=== PATIENT | male | born 1945 | race American Indian/Alaskan Native ===

== ENCOUNTER 2017-07-25 06:06 | Inpatient (IN) | payer MEDICARE ==
[2017-07-25] MEDS ORDERED: ASPIRIN PO ONE (07:16)
[2017-07-25] MEDS ORDERED: HEPARIN 10,000 UNITS/10 ML IV ONE (07:26)
[2017-07-25 07:47] LABS: Basophils # (Auto) 0.1 K/mm3 (0.0-0.1); Basophils % (Auto) 1.6 % (0.0-1.8); Eosinophils # (Auto) 0.4 K/mm3 (0.0-0.4); Eosinophils % (Auto) 5.3 % (0.0-4.3); Hematocrit 30.4 % (35.5-45.6); Hemoglobin 9.8 gm/dl (11.8-15.2); Lymphocytes # (Auto) 1.4 K/mm3 (1.2-5.4); Lymphocytes % (Auto) 21.1 % (13.4-35.0); Mean Corpuscular HGB Conc 32 % (32-34); Monocytes % (Auto) 15.1 % (0.0-7.3); Red Blood Count 4.46 M/mm3 (3.65-5.03)
[2017-07-25 07:51] LABS: Mean Corpuscular Hemoglobin 22 pg (28-32); Mean Corpuscular Volume 68 fl (84-94); Platelet Count 160 K/mm3 (140-440); Red Cell Distribution Width 23.5 % (13.2-15.2)
[2017-07-25 07:58] LABS: INR 1.35 (0.87-1.13)
[2017-07-25 07:59] LABS: Partial Thromboplastin Time 32.7 Sec. (24.2-36.6)
[2017-07-25 08:08] LABS: BUN/Creatinine Ratio 26; Blood Urea Nitrogen 46 mg/dL (9-20); Calcium 8.8 mg/dL (8.4-10.2); Hemolysis Index 41
[2017-07-25] MEDS: LOPRESSOR IV PRN ×3 (08:11→09:28)
--- NOTE | 2017-07-25 08:23 | XRay Report ---
AP CHEST: HISTORY: chest pain No comparison. Moderate cardiomegaly, mild pulmonary venous congestion and trace bilateral pleural effusions are detected. No evidence for pneumonia or pneumothorax. The bony structures are grossly intact. IMPRESSION: Mild CHF.
[2017-07-25] MEDS ORDERED: HEPARIN/ 0.45% NACL-25,000 UNIT/500 ML 25,000 UNIT/500 ML BAG IV SCH ×2 (09:00→12:00)
--- NOTE | 2017-07-25 09:21 | Emergency Department Report ---
ED Chest Pain HPI - General Chief Complaint: Chest Pain Stated Complaint: CHEST PAIN Time Seen by Provider: 07/25/17 07:20 Source: patient Mode of arrival: Ambulatory Limitations: No Limitations - History of Present Illness Initial Comments: Patient states that earlier today, he developed palpitations, chest tightness. He was unable to slow his heart rate down. Symptoms are consistent with the patient's A. fib. So, he called EMS who brought him to the ER for evaluation. Patient is unsure what medications he takes. He normally gets care at [facility]. He believes that he is on metoprolol and eliquis for his A. fib. - Related Data Home Medications Medication Instructions Recorded Confirmed Last Taken ARIPiprazole 30 mg PO DAILY 07/25/17 07/25/17 Unknown Aspirin BABY CHEW TAB 81 mg PO DAILY 07/25/17 07/25/17 Unknown AtorvaSTATin 20 mg PO DAILY 07/25/17 07/25/17 Unknown Divalproex ER 500 mg PO DAILY 07/25/17 07/25/17 Unknown Furosemide 40 mg PO DAILY 07/25/17 07/25/17 Unknown Lisinopril 20 mg PO DAILY 07/25/17 07/25/17 Unknown Metoprolol 100 mg PO DAILY 07/25/17 07/25/17 Unknown Tamsulosin 0.4 mg PO DAILY 07/25/17 07/25/17 Unknown Xarelto 20 mg PO DAILY 07/25/17 07/25/17 Unknown traZODone 150 mg PO BID PRN 07/25/17 07/25/17 Unknown Allergies Allergy/AdvReac Type Severity Reaction Status Date / Time No Known Allergies Allergy Unverified 07/25/17 07:16 Heart Score - HEART Score History: Slightly suspicious EKG: Non-specific Age: > 65 Risk factors: 1-2 risk factors Troponin: < normal limit HEART Score: 4 ED Review of Systems ROS: Stated complaint: CHEST PAIN Other details as noted in HPI Constitutional: denies: chills, fever Eyes: denies: eye pain, eye discharge, vision change ENT: denies: ear pain, throat pain Respiratory: denies: cough, shortness of breath, wheezing Cardiovascular: chest pain, palpitations Endocrine: no symptoms reported Gastrointestinal: denies: abdominal pain, nausea, diarrhea Genitourinary: denies: urgency, dysuria Musculoskeletal: denies: back pain, joint swelling, arthralgia Skin: denies: rash, lesions Neurological: denies: headache, weakness, paresthesias Psychiatric: denies: anxiety, depression Hematological/Lymphatic: denies: easy bleeding, easy bruising ED Past Medical Hx - Past Medical History Hx Hypertension: Yes Hx Heart Attack/AMI: Yes Hx Psychiatric Treatment: Yes (Bipolar,) Additional medical history: Afib, - Surgical History Additional Surgical History: Cardiac stents, - Social History Smoking Status: Never Smoker Substance Use Type: None - Medications Home Medications: Home Medications Medication Instructions Recorded Confirmed Last Taken Type ARIPiprazole 30 mg PO DAILY 07/25/17 07/25/17 Unknown History Aspirin BABY CHEW TAB 81 mg PO DAILY 07/25/17 07/25/17 Unknown History AtorvaSTATin 20 mg PO DAILY 07/25/17 07/25/17 Unknown History Divalproex ER 500 mg PO DAILY 07/25/17 07/25/17 Unknown History Furosemide 40 mg PO DAILY 07/25/17 07/25/17 Unknown History Lisinopril 20 mg PO DAILY 07/25/17 07/25/17 Unknown History Metoprolol 100 mg PO DAILY 07/25/17 07/25/17 Unknown History Tamsulosin 0.4 mg PO DAILY 07/25/17 07/25/17 Unknown History Xarelto 20 mg PO DAILY 07/25/17 07/25/17 Unknown History traZODone 150 mg PO BID PRN 07/25/17 07/25/17 Unknown History ED Physical Exam - General Limitations: No Limitations General appearance: alert, in no apparent distress - Head Head exam: Present: atraumatic, normocephalic - Eye Eye exam: Present: normal appearance - ENT ENT exam: Present: mucous membranes moist - Neck Neck exam: Present: normal inspection - Respiratory Respiratory exam: Present: normal lung sounds bilaterally. Absent: respiratory distress - Cardiovascular Cardiovascular Exam: Present: tachycardia, irregular rhythm. Absent: systolic murmur, diastolic murmur, rubs, gallop - GI/Abdominal GI/Abdominal exam: Present: soft, normal bowel sounds. Absent: tenderness - Rectal Rectal exam: Present: deferred - Extremities Exam Extremities exam: Present: normal inspection, pedal edema - Back Exam Back exam: Present: normal inspection - Neurological Exam Neurological exam: Present: alert, oriented X3 - Psychiatric Psychiatric exam: Present: normal affect, normal mood - Skin Skin exam: Present: warm, dry, intact, normal color. Absent: rash ED Course Vital Signs 07/25/17 07/25/17 07/25/17 07:24 07:57 08:09 Temperature 98 F Pulse Rate 127 H 135 H Respiratory 20 24 Rate Blood Pressure 119/83 Blood Pressure 116/76 [Left] O2 Sat by Pulse 98 97 100 Oximetry 07/25/17 07/25/17 07/25/17 08:11 08:50 09:28 Temperature Pulse Rate 135 H 122 H 120 H Respiratory Rate Blood Pressure 116/76 138/73 140/96 Blood Pressure [Left] O2 Sat by Pulse Oximetry ED Medical Decision Making - Lab Data Result diagrams: 07/25/17 10:45 07/25/17 07:32 - EKG Data -: EKG Interpreted by Me Rate: tachycardia - EKG Data Interpretation: other (atrial fibrillation with RVR) - Radiology Data Radiology results: image reviewed - Medical Decision Making 69-year-old male with past medical history of hypertension, A. fib on throughout so that presents to the ER with palpitations. Heart rate elevated at 140, but normotensive. Patient mentating appropriate. He is unclear what medicines he takes at home. He was given 3 doses of 5 mg IV metoprolol. This controlled his rate. Lab work with creatinine of 1.8. EKG confirms A. fib with RVR. There is placed on a heparin drip. I attempted to call his house to confirm his medication list. The patient will be admitted for further management. Critical care attestation.: If time is entered above; I have spent that time in minutes in the direct care of this critically ill patient, excluding procedure time. ED Disposition Clinical Impression: Atrial fibrillation with RVR Disposition: OP ADMIT IP TO THIS HOSP Is pt being admited?: Yes Does the pt Need Aspirin: No Condition: Stable
[2017-07-25] MEDS ORDERED: NITROSTAT SL PRN (10:16)
[2017-07-25] MEDS ORDERED: SODIUM CHLORIDE FLUSH SYRINGE 10 ML IV PRN (10:16)
[2017-07-25] MEDS ORDERED: TYLENOL PO PRN (10:16)
[2017-07-25] MEDS ORDERED: ZOFRAN IV PRN (10:16)
[2017-07-25] MEDS ORDERED: MORPHINE IV PRN (10:16)
--- NOTE | 2017-07-25 10:29 | History and Physical Report ---
History of Present Illness Date of examination: 07/25/17 Date of admission: 07/25/17 Chief complaint: Chest pain with shortness of breath History of present illness: Patient's an 81-year-old male who presents to the ER with complaints of chest pain that woke him up at 2 AM this morning with his shortness of breath on arrival to the ER his oxygen saturation on room air was 76%. This improved to 97% with 2 L of oxygen. Patient is a poor historian and unable to give me any detailed information about his past medical history except a that he has heart failure and also follows with Dr. FLORESITA Farrar heart and also normally gets CAD [facility]. Patient is unable to give me further information about his condition except that he was short of breath throughout the conversation the patient falls asleep. On admission he had heart rate in the 140s which is improved to 90- low 100s. He does not specifically inform me of her chest discomfort. But this is documented in the ER as triage note. Initial troponins are negative. Creatinine is 1.8 again sign do not have a baseline off of this patient. Initial EKG reviewed shows atrial fibrillation with RVR. Patient is unable to give me any further information. Review of his records indicate history of heart failure and also bipolar disorder. Past History Past Medical History: CAD, COPD, hypertension (I gave my) Past Surgical History: PTCA, Other ( The shoulder surgery) Social history: no significant social history, other (patient unable to provide information) Family history: other (patient unable to provide information) Medications and Allergies Allergies Allergy/AdvReac Type Severity Reaction Status Date / Time No Known Allergies Allergy Unverified 07/25/17 07:16 Home Medications Medication Instructions Recorded Confirmed Last Taken Type Unobtainable 07/25/17 07/25/17 Unknown History Active Meds: Active Medications Acetaminophen (Tylenol) 650 mg PO Q4H PRN PRN Reason: Pain MILD(1-3)/Fever >100.5/IRBY Albuterol/Ipratropium (Duoneb *Not For Prn Use*) 1 ampul IH Q6HRT [facility] Aspirin (Baby Aspirin) 81 mg PO QDAY [facility] Carvedilol (Coreg) 6.25 mg PO BID [facility] Famotidine (Pepcid) 10 mg PO BID [facility] Furosemide (Lasix) 40 mg IV BID@0600,1800 [facility] Heparin Sodium/Sodium Chloride (Heparin/ 0.45% Nacl-25,000 Unit/500 Ml) 25,000 unit in 500 mls @ 20 mls/hr IV TITRATE [facility]; Protocol Heparin Sodium/Sodium Chloride (Heparin/ 0.45% Nacl-25,000 Unit/500 Ml) 25,000 unit in 500 mls @ 31.978 mls/hr IV TITRATE [facility]; Protocol Lisinopril (Zestril) 20 mg PO QDAY [facility] Morphine Sulfate (Morphine) 2 mg IV Q5MIN PRN PRN Reason: Chest Pain Nitroglycerin (Nitrostat) 0.4 mg SL .Q5MIN PRN PRN Reason: Chest Pain Ondansetron HCl (Zofran) 4 mg IV Q8H PRN PRN Reason: Nausea And Vomiting Sodium Chloride (Sodium Chloride Flush Syringe 10 Ml) 10 ml IV BID [facility] Sodium Chloride (Sodium Chloride Flush Syringe 10 Ml) 10 ml IV PRN PRN PRN Reason: LINE FLUSH Review of Systems All systems: negative Cardiovascular: chest pain Respiratory: shortness of breath Exam - Physical Exam Narrative exam: VITAL SIGNS: Reviewed. GENERAL: The patient appeared well nourished and normally developed. Vital signs as documented. HEAD: No signs of head trauma. EYES: Pupils are equal. Extraocular motions intact. EARS: Hearing grossly intact. MOUTH: Oropharynx is normal. NECK: No adenopathy, no JVD. CHEST: Chest with clear breath sounds bilaterally. No wheezes, rales, or rhonchi. CARDIAC: Irregularly irregular rate and rhythm. S1 and S2, without murmurs, gallops, or rubs. VASCULAR: None Pitting bilateral lower extremity Edema. Peripheral pulses normal and equal in all extremities. ABDOMEN: Soft, without detectable tenderness. No sign of distention. No rebound or guarding, and no masses palpated. Bowel Sounds normal. MUSCULOSKELETAL: Good range of motion of all major joints. Extremities without clubbing, cyanosis. None Pitting bilateral lower extremity Edema NEUROLOGIC EXAM: lethargic but arousable No focal sensory or strength deficits. Speech normal. Follows commands. PSYCHIATRIC: Mood normal. SKIN: Chronic bilateral venous changes - Constitutional Vitals: Temp Pulse Resp BP Pulse Ox 98 F 120 H 24 140/96 100 07/25/17 07:24 07/25/17 09:28 07/25/17 08:09 07/25/17 09:28 07/25/17 08:09 Results - Labs CBC & Chem 7: 07/25/17 07:32 07/25/17 07:32 Labs: Laboratory Last Values WBC 6.7 K/mm3 (4.5-11.0) 07/25/17 07:32 RBC 4.46 M/mm3 (3.65-5.03) 07/25/17 07:32 Hgb 9.8 gm/dl (11.8-15.2) L 07/25/17 07:32 Hct 30.4 % (35.5-45.6) L 07/25/17 07:32 MCV 68 fl (84-94) L 07/25/17 07:32 MCH 22 pg (28-32) L 07/25/17 07:32 MCHC 32 % (32-34) 07/25/17 07:32 RDW 23.5 % (13.2-15.2) H 07/25/17 07:32 Plt Count 160 K/mm3 (140-440) 07/25/17 07:32 Lymph % (Auto) 21.1 % (13.4-35.0) 07/25/17 07:32 [place] % (Auto) 15.1 % (0.0-7.3) H 07/25/17 07:32 Eos % (Auto) 5.3 % (0.0-4.3) H 07/25/17 07:32 Baso % (Auto) 1.6 % (0.0-1.8) 07/25/17 07:32 Lymph # 1.4 K/mm3 (1.2-5.4) 07/25/17 07:32 [place] # 1.0 K/mm3 (0.0-0.8) H 07/25/17 07:32 Eos # 0.4 K/mm3 (0.0-0.4) 07/25/17 07:32 Baso # 0.1 K/mm3 (0.0-0.1) 07/25/17 07:32 Seg Neutrophils % 56.9 % (40.0-70.0) 07/25/17 07:32 Seg Neutrophils # 3.8 K/mm3 (1.8-7.7) 07/25/17 07:32 PT 17.4 Sec. (12.2-14.9) H 07/25/17 07:32 INR 1.35 (0.87-1.13) H 07/25/17 07:32 APTT 32.7 Sec. (24.2-36.6) 07/25/17 07:32 Sodium 139 mmol/L (137-145) 07/25/17 07:32 Potassium 4.3 mmol/L (3.6-5.0) 07/25/17 07:32 Chloride 98.6 mmol/L (98-107) 07/25/17 07:32 Carbon Dioxide 27 mmol/L (22-30) 07/25/17 07:32 Anion Gap 18 mmol/L 07/25/17 07:32 BUN 46 mg/dL (9-20) H 07/25/17 07:32 Creatinine 1.8 mg/dL (0.8-1.5) H 07/25/17 07:32 Estimated GFR 44 ml/min 07/25/17 07:32 BUN/Creatinine Ratio 26 % 07/25/17 07:32 Glucose 111 mg/dL (75-100) H 07/25/17 07:32 Calcium 8.8 mg/dL (8.4-10.2) 07/25/17 07:32 Troponin T < 0.010 ng/mL (0.00-0.029) 07/25/17 07:32 NT-Pro-B Natriuret Pep 19343 pg/mL (0-900) H 07/25/17 07:34 - Imaging and Cardiology Chest x-ray: image reviewed (pulmonary congestion) Assessment and Plan Assessment and plan: Patient's an 81-year-old male who presents to the ER with complaints of chest pain that woke him up at 2 AM this morning with his shortness of breath on arrival to the ER his oxygen saturation on room air was 76%. This improved to 97% with 2 L of oxygen. Patient is a poor historian and unable to give me any detailed information about his past medical history except a that he has heart failure and also follows with Dr. FLORESITA Farrar heart and also normally gets [facility]. Patient is unable to give me further information about his condition except that he was short of breath throughout the conversation the patient falls asleep. On admission he had heart rate in the 140s which is improved to 90- low 100s. He does not specifically inform me of her chest discomfort. But this is documented in the ER as triage note. Initial troponins are negative. Creatinine is 1.8 again sign do not have a baseline off of this patient. Initial EKG reviewed shows atrial fibrillation with RVR. Patient is unable to give me any further information. Review of his records indicate history of heart failure and also bipolar disorder. Chest pain rule out ACS Atrial fibrillation with RVR Acute respiratory failure with hypoxia Presumed acute on chronic congestive heart failure likely systolic CAD status post stents-partial vasculature Anemia Acute kidney injury likely secondary to vasomotor nephropathy-baseline unknown to me at this time Bipolar disorder Acute metabolic encephalopathy Plan Admit to telemetry. Careful attention to patient as he may need ICU if mental status and respiratory status, cardiology status do not improve Lasix 40 mg IV twice a day this may need to be adjusted in the setting of increase in renal dysfunction Hold HUSAM inhibitor unless creatinine is at its baseline Start low-dose beta bernardo [place] Heparin drip Consult cardiology-[facility], [facility] patient familiar to them Obtain records from [facility] and also from the pharmacy at [facility] as provided by the patient. Medication information and clinical history. 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 The aggregate critical care time was [45] minutes. This time is in addition to time spent performing reported procedures but includes the following: [x] Data Review and interpretation [x] Patient assessment and monitoring of vital signs [x] Documentation [x] Medication orders and management Advance Directives: Yes Plan of care discussed with patient/family: Yes
[2017-07-25 11:11] LABS: Hematocrit 29.1 % (35.5-45.6); Hemoglobin 9.4 gm/dl (11.8-15.2)
[2017-07-25 11:21] LABS: INR 1.33 (0.87-1.13)
[2017-07-25 11:23] LABS: Partial Thromboplastin Time 42.6 Sec. (24.2-36.6)
[2017-07-25] MEDS: DUONEB *Not for PRN Use IH SCH ×2 (14:21→20:20)
[2017-07-25 14:40] LABS: Creatine Kinase MB 1.8 ng/mL (0.0-4.0)
--- NOTE | 2017-07-25 16:25 | Consultation ---
History of Present Illness Consult date: 07/25/17 Consult reason: atrial fibrillation History of present illness: This is a 71yr old male with multiple medical problems. He has chronic atrial fibrillation and is on Xarelto for oral anticoagulation. He has a history of DVT , chronic kidney disease, hypertension and bipolar disease. An echocardiogram done at [facility] April 2017, reports a normal left ventricular systolic function, ejection fraction 45-50%. Patient presented to this hospital with complaints of chest pain and palpitations, found to be in rapid atrial fibrillation thus this cardiac consultation. Patient denies chest pain and shortness of breath. Patient admits to compliance with his medications. Patient is lethargic and falls asleep during this assessment and is unable to provide additional information. Past History Social history: other (patient unable to provide information) Family history: other (patient unable to provide information) Medications and Allergies Allergies Allergy/AdvReac Type Severity Reaction Status Date / Time No Known Allergies Allergy Unverified 07/25/17 07:16 Home Medications Medication Instructions Recorded Confirmed Last Taken Type ARIPiprazole 30 mg PO DAILY 07/25/17 07/25/17 Unknown History Aspirin BABY CHEW TAB 81 mg PO DAILY 07/25/17 07/25/17 Unknown History AtorvaSTATin 20 mg PO DAILY 07/25/17 07/25/17 Unknown History Divalproex ER 500 mg PO DAILY 07/25/17 07/25/17 Unknown History Furosemide 40 mg PO DAILY 07/25/17 07/25/17 Unknown History Lisinopril 20 mg PO DAILY 07/25/17 07/25/17 Unknown History Metoprolol 100 mg PO DAILY 07/25/17 07/25/17 Unknown History Tamsulosin 0.4 mg PO DAILY 07/25/17 07/25/17 Unknown History Xarelto 20 mg PO DAILY 07/25/17 07/25/17 Unknown History traZODone 150 mg PO BID PRN 07/25/17 07/25/17 Unknown History Active Meds: Active Medications Acetaminophen (Tylenol) 650 mg PO Q4H PRN PRN Reason: Pain MILD(1-3)/Fever >100.5/IRBY Albuterol/Ipratropium (Duoneb *Not For Prn Use*) 1 ampul IH Q6HRT [facility] Last Admin: 07/25/17 14:21 Dose: 1 ampul Aspirin (Baby Aspirin) 81 mg PO QDAY [facility] Carvedilol (Coreg) 6.25 mg PO BID [facility] Famotidine (Pepcid) 10 mg PO BID [facility] Furosemide (Lasix) 40 mg IV BID@0600,1800 [facility] Heparin Sodium/Sodium Chloride (Heparin/ 0.45% Nacl-25,000 Unit/500 Ml) 25,000 unit in 500 mls @ 20 mls/hr IV TITRATE [facility]; Protocol Morphine Sulfate (Morphine) 2 mg IV Q5MIN PRN PRN Reason: Chest Pain Nitroglycerin (Nitrostat) 0.4 mg SL .Q5MIN PRN PRN Reason: Chest Pain Ondansetron HCl (Zofran) 4 mg IV Q8H PRN PRN Reason: Nausea And Vomiting Sodium Chloride (Sodium Chloride Flush Syringe 10 Ml) 10 ml IV BID [facility] Sodium Chloride (Sodium Chloride Flush Syringe 10 Ml) 10 ml IV PRN PRN PRN Reason: LINE FLUSH Physical Examination Vital Signs Temp Pulse BP Pulse Ox 98 F 127 H 119/83 98 07/25/17 07:24 07/25/17 07:24 07/25/17 07:24 07/25/17 07:24 General appearance: no acute distress Cardiac: Positive: irregularly irregular Results 07/25/17 10:45 07/25/17 07:32 Cardiac Enzymes 07/25/17 Range/Units 13:52 CK-MB (CK-2) 1.8 (0.0-4.0) ng/mL Coagulation 07/25/17 07/25/17 Range/Units 07:32 10:45 PT 17.4 H 17.2 H (12.2-14.9) Sec. INR 1.35 H 1.33 H (0.87-1.13) APTT 32.7 42.6 H (24.2-36.6) Sec. CBC 07/25/17 07/25/17 Range/Units 07:32 10:45 WBC 6.7 (4.5-11.0) K/mm3 RBC 4.46 (3.65-5.03) M/mm3 Hgb 9.8 L 9.4 L (11.8-15.2) gm/dl Hct 30.4 L 29.1 L (35.5-45.6) % Plt Count 160 138 L (140-440) K/mm3 Lymph # 1.4 (1.2-5.4) K/mm3 [place] # 1.0 H (0.0-0.8) K/mm3 Eos # 0.4 (0.0-0.4) K/mm3 Baso # 0.1 (0.0-0.1) K/mm3 Comprehensive Metabolic Panel 07/25/17 Range/Units 07:32 Sodium 139 (137-145) mmol/L Potassium 4.3 (3.6-5.0) mmol/L Chloride 98.6 (98-107) mmol/L Carbon Dioxide 27 (22-30) mmol/L BUN 46 H (9-20) mg/dL Creatinine 1.8 H (0.8-1.5) mg/dL Glucose 111 H (75-100) mg/dL Calcium 8.8 (8.4-10.2) mg/dL Assessment and Plan - Patient Problems (1) Atrial fibrillation with RVR Current Visit: Yes Status: Acute Plan to address problem: on xarelto for oral anticoagulatin echocardiogram done at [facility] April 2017, reports a normal left ventricular systolic function, ejection fraction 45-50%.
[2017-07-25 19:53] LABS: Creatine Kinase MB 1.6 ng/mL (0.0-4.0)
[2017-07-25] MEDS: COREG PO SCH (23:12)
[2017-07-25] MEDS: PEPCID PO SCH (23:13)
[2017-07-25] MEDS: SODIUM CHLORIDE FLUSH SYRINGE 10 ML IV SCH (23:13)
[2017-07-25] MEDS: LASIX IV SCH (23:20)
[2017-07-26] MEDS ORDERED: CARDIZEM IV ONE (01:32)
[2017-07-26] MEDS: CARDIZEM/D5W 100MG/100ML 100 MG/100 ML BAG IV SCH ×2 (02:12→19:57)
[2017-07-26] MEDS: LASIX IV SCH ×2 (05:32→17:34)
[2017-07-26 06:37] LABS: Basophils % (Auto) 0.6 % (0.0-1.8); Eosinophils # (Auto) 0.6 K/mm3 (0.0-0.4); Eosinophils % (Auto) 10.3 % (0.0-4.3); Hematocrit 28.2 % (35.5-45.6); Hemoglobin 9.2 gm/dl (11.8-15.2); Lymphocytes % (Auto) 16.8 % (13.4-35.0); Mean Corpuscular HGB Conc 33 % (32-34); Mean Corpuscular Volume 68 fl (84-94); Monocytes # (Auto) 0.7 K/mm3 (0.0-0.8); Monocytes % (Auto) 11.4 % (0.0-7.3); Platelet Count 168 K/mm3 (140-440); Red Blood Count 4.18 M/mm3 (3.65-5.03)
[2017-07-26 06:38] LABS: Mean Corpuscular Hemoglobin 22 pg (28-32); Red Cell Distribution Width 23.3 % (13.2-15.2)
[2017-07-26 07:04] LABS: BUN/Creatinine Ratio 25; Blood Urea Nitrogen 33 mg/dL (9-20); Calcium 8.5 mg/dL (8.4-10.2); Chol/HDL Ratio 3.25 %; HDL Cholesterol 32 mg/dL (40-59); Hemolysis Index 18; LDL Cholesterol,Direct 62 mg/dL (50-130)
[2017-07-26] MEDS ORDERED: ZESTRIL PO SCH (10:00)
[2017-07-26] MEDS ORDERED: BABY ASPIRIN PO SCH (10:00)
[2017-07-26] MEDS: DUONEB *Not for PRN Use IH SCH ×3 (10:02→19:44)
[2017-07-26] MEDS ORDERED: NON-FORMULARY (Trazodone 150 MG) PO PRN (10:20)
[2017-07-26] MEDS ORDERED: NON-FORMULARY (Metoprolol 100 MG) PO SCH (10:30)
[2017-07-26] MEDS: PEPCID PO SCH ×2 (10:57→22:00)
[2017-07-26] MEDS: COREG PO SCH (10:58)
[2017-07-26] MEDS ORDERED: ARIPIPRAZOLE 30 MG PO SCH (11:00)
--- NOTE | 2017-07-26 12:11 | Progress Note ---
Assessment and Plan - Patient Problems (1) Atrial fibrillation with RVR Current Visit: Yes Status: Acute Plan to address problem: Chronic atrial fibrillation, rate control on xarelto for oral anticoagulation echocardiogram done at [facility] April 2017, reports a normal left ventricular systolic function, ejection fraction 45-50%. Recommendations: Optimal rate control and oral anticoagulation for atrial fibrillation. Once his heart failure is resolved, he will benefit from a myocardial perfusion study to assess for ischemic coronary disease. Subjective Date of service: 07/26/17 Interval history: Patient denies palpitations. Afib on telemetry with a well controlled ventricular rate. Objective Vital Signs Temp Pulse Pulse Pulse Pulse Resp Resp 07/26/17 10:02 92 H 07/26/17 10:00 07/26/17 09:20 83 07/26/17 08:31 67 22 07/26/17 08:00 98.2 F 94 H 93 H 20 07/26/17 04:47 99.0 F 100 H 20 07/26/17 02:11 145 H 07/25/17 23:51 98.1 F 71 20 07/25/17 23:12 130 H 07/25/17 22:15 07/25/17 22:10 125 H 18 07/25/17 20:36 116 H 07/25/17 20:23 07/25/17 20:21 114 H 07/25/17 20:12 98.4 F 146 H 20 07/25/17 19:37 128 H 07/25/17 18:00 98 F 120 H 22 07/25/17 14:30 109 H 122 H 22 07/25/17 13:40 124 H 22 Resp BP BP Pulse Ox 07/26/17 10:02 19 07/26/17 10:00 98 07/26/17 09:20 07/26/17 08:31 119/69 94 07/26/17 08:00 18 119/69 96 07/26/17 04:47 115/63 93 07/26/17 02:11 123/80 07/25/17 23:51 123/80 93 07/25/17 23:12 140/80 07/25/17 22:15 100 07/25/17 22:10 93 07/25/17 20:36 22 07/25/17 20:23 100 07/25/17 20:21 22 07/25/17 20:12 140/80 100 07/25/17 19:37 07/25/17 18:00 141/87 98 07/25/17 14:30 18 07/25/17 13:40 145/104 96 - Physical Examination General: No Apparent Distress HEENT: Positive: PERRL Cardiac: Positive: irregularly irregular Lungs: Positive: Decreased Breath Sounds - Labs and Meds Cardiac Enzymes 07/25/17 07/25/17 Range/Units 13:52 19:25 CK-MB (CK-2) 1.8 1.6 (0.0-4.0) ng/mL Lipids 07/26/17 Range/Units 06:13 Triglycerides 63 (2-149) mg/dL Cholesterol 104 (50-199) mg/dL HDL Cholesterol 32 L (40-59) mg/dL Cholesterol/HDL Ratio 3.25 % CBC 07/26/17 Range/Units 06:13 WBC 6.1 (4.5-11.0) K/mm3 RBC 4.18 (3.65-5.03) M/mm3 Hgb 9.2 L (11.8-15.2) gm/dl Hct 28.2 L (35.5-45.6) % Plt Count 168 (140-440) K/mm3 Lymph # 1.0 L (1.2-5.4) K/mm3 [place] # 0.7 (0.0-0.8) K/mm3 Eos # 0.6 H (0.0-0.4) K/mm3 Baso # 0.0 (0.0-0.1) K/mm3 Comprehensive Metabolic Panel 07/26/17 Range/Units 06:13 Sodium 142 (137-145) mmol/L Potassium 3.7 (3.6-5.0) mmol/L Chloride 100.0 (98-107) mmol/L Carbon Dioxide 30 (22-30) mmol/L BUN 33 H (9-20) mg/dL Creatinine 1.3 (0.8-1.5) mg/dL Glucose 94 (75-100) mg/dL Calcium 8.5 (8.4-10.2) mg/dL
[2017-07-26] MEDS: TOPROL XL PO SCH (13:26)
[2017-07-26] MEDS: BABY ASPIRIN PO SCH (13:26)
[2017-07-26] MEDS: SODIUM CHLORIDE FLUSH SYRINGE 10 ML IV SCH ×2 (13:27→22:03)
[2017-07-26] MEDS: ABILIFY PO SCH (17:34)
--- NOTE | 2017-07-26 19:45 | Progress Note ---
Assessment and Plan Assessment and plan: Patient's an 81-year-old male who presents to the ER with complaints of chest pain that woke him up at 2 AM this morning with his shortness of breath on arrival to the ER his oxygen saturation on room air was 76%. This improved to 97% with 2 L of oxygen. Patient is a poor historian and unable to give me any detailed information about his past medical history except a that he has heart failure and also follows with Dr. FLORESITA Farrar heart and also normally gets CAD [facility]. Patient is unable to give me further information about his condition except that he was short of breath throughout the conversation the patient falls asleep. On admission he had heart rate in the 140s which is improved to 90- low 100s. He does not specifically inform me of her chest discomfort. But this is documented in the ER as triage note. Initial troponins are negative. Creatinine is 1.8 again sign do not have a baseline off of this patient. Initial EKG reviewed shows atrial fibrillation with RVR. Patient is unable to give me any further information. Review of his records indicate history of heart failure and also bipolar disorder. Chest pain rule out ACS Atrial fibrillation with RVR Acute respiratory failure with hypoxia Presumed acute on chronic congestive heart failure likely systolic CAD status post stents-partial vasculature Anemia Acute kidney injury likely secondary to vasomotor nephropathy-baseline unknown to me at this time Bipolar disorder Acute metabolic encephalopathy Plan wean cardizem start home meds with toprol xl Lasix 40 mg IV twice a day this may need to be adjusted in the setting of increase in renal dysfunction Hold HUSAM inhibitor unless creatinine is at its baseline Nebs start xarelto -home meds cardiology input noted, stress test in am Obtain records from [facility] and also from the pharmacy at [facility] as provided by the patient. Medication information and clinical history. Also from primary student services representative office Echocardiogram Cardiac enzymes Heart healthy diet DVT and GI prophylaxis History Interval history: Patient seen and examined this am, reports improvement in symptoms but not at baseline Hospitalist Physical - Physical exam Narrative exam: VITAL SIGNS: Reviewed. GENERAL: The patient appeared well nourished and normally developed. Vital signs as documented. HEAD: No signs of head trauma. EYES: Pupils are equal. Extraocular motions intact. EARS: Hearing grossly intact. MOUTH: Oropharynx is normal. NECK: No adenopathy, no JVD. CHEST: Chest with clear breath sounds bilaterally. No wheezes, rales, or rhonchi. CARDIAC: Irregularly irregular rate and rhythm. S1 and S2, without murmurs, gallops, or rubs. VASCULAR: None Pitting bilateral lower extremity Edema. Peripheral pulses normal and equal in all extremities. ABDOMEN: Soft, without detectable tenderness. No sign of distention. No rebound or guarding, and no masses palpated. Bowel Sounds normal. MUSCULOSKELETAL: Good range of motion of all major joints. Extremities without clubbing, cyanosis. None Pitting bilateral lower extremity Edema NEUROLOGIC EXAM: awake and oriented to person and place and time. No focal sensory or strength deficits. Speech normal. Follows commands. PSYCHIATRIC: Mood normal. SKIN: Chronic bilateral venous changes - Constitutional Vitals: Temp Pulse Resp BP Pulse Ox 97.4 F L 67 18 122/82 97 07/26/17 16:00 07/26/17 19:43 07/26/17 19:43 07/26/17 17:53 07/26/17 17:53 General appearance: Present: no acute distress Results - Labs CBC & Chem 7: 07/26/17 06:13 07/26/17 06:13 Labs: Laboratory Last Values WBC 6.1 K/mm3 (4.5-11.0) 07/26/17 06:13 RBC 4.18 M/mm3 (3.65-5.03) 07/26/17 06:13 Hgb 9.2 gm/dl (11.8-15.2) L 07/26/17 06:13 Hct 28.2 % (35.5-45.6) L 07/26/17 06:13 MCV 68 fl (84-94) L 07/26/17 06:13 MCH 22 pg (28-32) L 07/26/17 06:13 MCHC 33 % (32-34) 07/26/17 06:13 RDW 23.3 % (13.2-15.2) H 07/26/17 06:13 Plt Count 168 K/mm3 (140-440) 07/26/17 06:13 Lymph % (Auto) 16.8 % (13.4-35.0) 07/26/17 06:13 Thayer % (Auto) 11.4 % (0.0-7.3) H 07/26/17 06:13 Eos % (Auto) 10.3 % (0.0-4.3) H 07/26/17 06:13 Baso % (Auto) 0.6 % (0.0-1.8) 07/26/17 06:13 Lymph # 1.0 K/mm3 (1.2-5.4) L 07/26/17 06:13 Thayer # 0.7 K/mm3 (0.0-0.8) 07/26/17 06:13 Eos # 0.6 K/mm3 (0.0-0.4) H 07/26/17 06:13 Baso # 0.0 K/mm3 (0.0-0.1) 07/26/17 06:13 Seg Neutrophils % 60.9 % (40.0-70.0) 07/26/17 06:13 Seg Neutrophils # 3.7 K/mm3 (1.8-7.7) 07/26/17 06:13 PT 17.2 Sec. (12.2-14.9) H 07/25/17 10:45 INR 1.33 (0.87-1.13) H 07/25/17 10:45 APTT 42.6 Sec. (24.2-36.6) H 07/25/17 10:45 Heparin Anti-Xa Level 0.25 U.I./ml (0.3-0.7) L 07/26/17 10:48 Sodium 142 mmol/L (137-145) 07/26/17 06:13 Potassium 3.7 mmol/L (3.6-5.0) 07/26/17 06:13 Chloride 100.0 mmol/L (98-107) 07/26/17 06:13 Carbon Dioxide 30 mmol/L (22-30) 07/26/17 06:13 Anion Gap 16 mmol/L 07/26/17 06:13 BUN 33 mg/dL (9-20) H 07/26/17 06:13 Creatinine 1.3 mg/dL (0.8-1.5) 07/26/17 06:13 Estimated GFR > 60 ml/min 07/26/17 06:13 BUN/Creatinine Ratio 25 % 07/26/17 06:13 Glucose 94 mg/dL (75-100) 07/26/17 06:13 Calcium 8.5 mg/dL (8.4-10.2) 07/26/17 06:13 Total Creatine Kinase 87 units/L (55-170) 07/25/17 19:25 CK-MB (CK-2) 1.6 ng/mL (0.0-4.0) 07/25/17 19:25 CK-MB (CK-2) Rel Index 1.8 (0-4) 07/25/17 19:25 Troponin T < 0.010 ng/mL (0.00-0.029) 07/25/17 19:25 NT-Pro-B Natriuret Pep 20059 pg/mL (0-900) H 07/25/17 07:34 Triglycerides 63 mg/dL (2-149) 07/26/17 06:13 Cholesterol 104 mg/dL (50-199) 07/26/17 06:13 LDL Cholesterol Direct 62 mg/dL (50-130) 07/26/17 06:13 HDL Cholesterol 32 mg/dL (40-59) L 07/26/17 06:13 Cholesterol/HDL Ratio 3.25 % 07/26/17 06:13
[2017-07-26] MEDS ORDERED: DESYREL PO PRN (22:00)
[2017-07-27 07:10] LABS: Hematocrit 31.8 % (35.5-45.6); Hemoglobin 10.1 gm/dl (11.8-15.2)
[2017-07-27] MEDS ORDERED: XARELTO PO SCH (08:00)
[2017-07-27] MEDS: DUONEB *Not for PRN Use IH SCH (08:30)
[2017-07-27] MEDS: TOPROL XL PO SCH (09:57)
[2017-07-27] MEDS: CARDIZEM/D5W 100MG/100ML 100 MG/100 ML BAG IV SCH (09:57)
[2017-07-27] MEDS: BABY ASPIRIN PO SCH (09:58)
[2017-07-27] MEDS: PEPCID PO SCH (09:58)
[2017-07-27] MEDS ORDERED: NON-FORMULARY (Divalproex Er 500 MG) PO SCH (10:00)
[2017-07-27] MEDS ORDERED: NON-FORMULARY (Aspirin Baby Chew Tab 81 MG) PO SCH (10:00)
[2017-07-27] MEDS ORDERED: NON-FORMULARY (Tamsulosin 0.4 MG) PO SCH (10:00)
[2017-07-27] MEDS ORDERED: FLOMAX PO SCH (10:00)
[2017-07-27] MEDS ORDERED: NON-FORMULARY (Atorvastatin 20 MG) PO SCH (10:00)
[2017-07-27] MEDS ORDERED: NON-FORMULARY (Xarelto 20 MG) PO SCH (10:00)
[2017-07-27] MEDS: ABILIFY PO SCH (10:09)
--- NOTE | 2017-07-27 10:23 | Progress Note ---
Assessment and Plan - Patient Problems (1) Chronic atrial fibrillation Current Visit: Yes Status: Acute Plan to address problem: Continue rate control of atrial fibrillation and chronic oral anticoagulation. (2) Heart failure with preserved ejection fraction Current Visit: Yes Status: Acute Plan to address problem: He looks and feels much better, no chest pain, no shortness of breath and no palpitations. On further evaluation, he is scheduled to have stress test in the next 2 weeks as an outpatient, already ordered by his primary outpatient administrative tech Dr. Veronica. Patient prefers to be discharged home tomorrow and follow up for outpatient stress testing with his doctor. Subjective Date of service: 07/27/17 Interval history: Anticipated stress test was canceled today, patient was still on intravenous Cardizem. Cardizem has been ordered to be transitioned to oral. He looks and feels much better, no chest pain, no shortness of breath and no palpitations. On further evaluation, he is scheduled to have stress test in the next 2 weeks as an outpatient, already ordered by his primary outpatient administrative tech Dr. Veronica. Patient prefers to be discharged home tomorrow and follow up for outpatient stress testing with his doctor. Objective Vital Signs Temp Pulse Pulse Resp Resp BP Pulse Ox 07/27/17 09:57 96 H 127/88 07/27/17 08:30 100 07/27/17 04:50 98.4 F 122 H 18 141/77 98 07/27/17 02:06 18 07/27/17 00:56 98.0 F 120 H 18 131/90 91 07/26/17 20:55 98.3 F 85 18 118/82 95 07/26/17 20:10 110 H 07/26/17 19:45 99 07/26/17 19:43 67 18 07/26/17 17:53 110 H 20 122/82 97 07/26/17 16:00 97.4 F L 07/26/17 13:42 89 19 - Physical Examination General: No Apparent Distress HEENT: Positive: PERRL Neck: Positive: neck supple Cardiac: Positive: irregularly irregular Lungs: Positive: Decreased Breath Sounds Neuro: Positive: Grossly Intact Abdomen: Positive: Soft Skin: Positive: Clear Extremities: Absent: edema - Labs and Meds CBC 07/27/17 Range/Units 06:41 Hgb 10.1 L (11.8-15.2) gm/dl Hct 31.8 L (35.5-45.6) % Plt Count 213 (140-440) K/mm3
[2017-07-27] MEDS ORDERED: CARDIZEM PO SCH (12:00)
--- NOTE | 2017-07-27 12:33 | Discharge Summary ---
Providers - Providers Date of Admission: 07/25/17 10:11 Attending physician: DOMINICK ENGLISH MD 07/25/17 09:40 Consult to Cardiology [CONS] Routine Consulting Provider: HEIDI LOMBARDI Reason For Exam: a. fib w/ rvr Primary care physician: CURRICULUM DEVELOPMENT COORDINATOR Hospitalization Reason for admission: chest pain Condition: Stable Hospital course: Patient's an 81-year-old male who presents to the ER with complaints of chest pain that woke him up at 2 AM this morning with his shortness of breath on arrival to the ER his oxygen saturation on room air was 76%. This improved to 97% with 2 L of oxygen. Patient is a poor historian and unable to give me any detailed information about his past medical history except a that he has heart failure and also follows with Dr. CANAS [facility] and also normally gets [facility]. Patient is unable to give me further information about his condition except that he was short of breath throughout the conversation the patient falls asleep. On admission he had heart rate in the 140s which is improved to 90- low 100s. He does not specifically inform me of her chest discomfort. But this is documented in the ER as triage note. Initial troponins are negative. Creatinine is 1.8 again sign do not have a baseline off of this patient. Initial EKG reviewed shows atrial fibrillation with RVR. Patient is unable to give me any further information. Review of his records indicate history of heart failure and also bipolar disorder. patient was treated for Afib with RVR, and chest pain was deemed, atypical. Medication adjustments wwere made. the patient wanted to have her stress test outpt which was agreed to be cardiology as it was already scheduled with Dr Canas in the office. Precautions prior to the stress test was discussed with the patient and she verbalized understanding. Discharge Diagnosis Chest pain secondary to costochondritis Atrial fibrillation with RVR Acute respiratory failure with hypoxia Presumed acute on chronic congestive heart failure likely systolic CAD status post stents-partial vasculature Anemia Acute kidney injury likely secondary to vasomotor nephropathy-baseline unknown to me at this time Bipolar disorder Acute metabolic encephalopathy Disposition: DC-01 TO HOME OR SELFCARE Time spent for discharge: 35 mins Core Measure Documentation - Palliative Care Palliative Care/ Comfort Measures: Not Applicable - Core Measures Any of the following diagnoses?: heart failure - VTE Discharge Requirements Deep Vein Thrombosis/Pulmonary Embolism Present on Admission: No - Heart Failure Discharge Requirements HUSAM/ARB for LVSD if EF <40%: Yes Beta bernardo at discharge: Yes Exam - Physical Exam Narrative exam: VITAL SIGNS: Reviewed. GENERAL: The patient appeared well nourished and normally developed. Vital signs as documented. HEAD: No signs of head trauma. EYES: Pupils are equal. Extraocular motions intact. EARS: Hearing grossly intact. MOUTH: Oropharynx is normal. NECK: No adenopathy, no JVD. CHEST: Chest with clear breath sounds bilaterally. No wheezes, rales, or rhonchi. CARDIAC: Irregularly irregular rate and rhythm. S1 and S2, without murmurs, gallops, or rubs. VASCULAR: None Pitting bilateral lower extremity Edema. Peripheral pulses normal and equal in all extremities. ABDOMEN: Soft, without detectable tenderness. No sign of distention. No rebound or guarding, and no masses palpated. Bowel Sounds normal. MUSCULOSKELETAL: Good range of motion of all major joints. Extremities without clubbing, cyanosis. None Pitting bilateral lower extremity Edema NEUROLOGIC EXAM: awake and oriented to person and place and time. No focal sensory or strength deficits. Speech normal. Follows commands. PSYCHIATRIC: Mood normal. SKIN: Chronic bilateral venous changes - Constitutional Vitals: Temp Pulse Resp BP Pulse Ox 98.4 F 96 H 18 127/88 100 07/27/17 04:50 07/27/17 09:57 07/27/17 04:50 07/27/17 09:57 07/27/17 08:30 Plan Activity: advance as tolerated, fall precautions Diet: low salt Special Instructions: record daily weights, record blood sugar diary Follow up with: NICK SAVAGE MD [Primary Care Provider] - 3-5 Days ADAM CANAS MD [Staff Physician] - 7 Days Prescriptions: Diltiazem Cd [Cardizem CD] 180 mg PO QHS #30 cap Metoprolol Xl [Metoprolol SUCCINATE ER TAB] 100 mg PO QDAY #30 tablet
[2017-07-27 12:42] VITALS: BP 129/82
== END 2017-07-27 13:50 | disposition home or self-care (01) | DRG 205 ==
LOC: ED 06:06 → EDBD 06:06 → 4A 10:11
PROVIDERS: ADMIT Internal Medicine; ATTEND Internal Medicine
DX: M94.0 Chondrocostal junction syndrome [Tietze] (principal); N17.0 Acute kidney failure with tubular necrosis; G93.41 Metabolic encephalopathy; I50.23 Acute on chronic systolic (congestive) heart failure; J96.01 Acute respiratory failure with hypoxia; I13.0 Hypertensive heart and chronic kidney disease with heart failure and stage 1 through stage 4 chronic kidney disease, or unspecified chronic kidney disease; I24.9 Acute ischemic heart disease, unspecified; I48.2 Chronic atrial fibrillation; I25.10 Atherosclerotic heart disease of native coronary artery without angina pectoris; Z95.5 Presence of coronary angioplasty implant and graft; D64.9 Anemia, unspecified; J44.9 Chronic obstructive pulmonary disease, unspecified; Z79.82 Long term (current) use of aspirin; Z79.899 Other long term (current) drug therapy; Z79.01 Long term (current) use of anticoagulants; N18.9 Chronic kidney disease, unspecified; Z86.718 Personal history of other venous thrombosis and embolism; Z91.013 Allergy to seafood
CPT/HCPCS: 36415; 71045; 80048; 80061; 82550; 82553; 83880; 84484; 85014; 85018; 85025; 85049; 85520; 85610; 85730; 93005; 93010; 94640; 94760; 96374; 96375; 99285; A9270-GY; J1644; J1940

== ENCOUNTER 2017-08-10 23:43 | Observation (INO) | payer MEDICARE ==
[2017-08-11] MEDS ORDERED: CARDIZEM IV ONE ×2 (00:14→06:56)
--- NOTE | 2017-08-11 00:39 | Emergency Department Report ---
HPI - General Chief Complaint: Arrhythmia/Palpitations Time Seen by Provider: 08/11/17 00:12 - HPI HPI: 72-year-old male presents to the emergency department via EMS from home with complaint of palpitations and shortness of breath. Patient apparently met EMS out by the mailbox. He has a history of atrial fibrillation , hyperlipidemia, bipolar disorder, CHF, coronary artery disease. He is on Xarelto and says he has been compliant with the medication. His rehabilitation nurse is Dr. Oneill but he denies having a primary care physician. An EKG was sent prior to arrival from EMS that shows atrial fibrillation with RVR. He is otherwise not taken anything for her symptoms prior to presentation. It looks like he is on metoprolol 100 mg twice daily for rate control but compliance with the rest of his other medications is unknown at this time. ED Past Medical Hx - Past Medical History Previous Medical History?: Yes Hx Hypertension: Yes Hx CVA: Yes (2011) Hx Heart Attack/AMI: Yes Hx Congestive Heart Failure: Yes Hx Deep Vein Thrombosis: Yes (bilat DVT) Hx Arthritis: Yes Hx Psychiatric Treatment: Yes (Bipolar,) Hx Asthma: No Hx Tuberculosis: No Hx HIV: No Additional medical history: Afib, - Surgical History Past Surgical History?: Yes Hx Coronary Stent: Yes (2013) Hx Open Heart Surgery: No Hx Pacemaker: No Hx Internal Defibrillator: No Additional Surgical History: Cardiac stents, - Social History Smoking Status: Unknown if ever smoked Substance Use Type: None - Medications Home Medications: Home Medications Medication Instructions Recorded Confirmed Last Taken Type Lisinopril [Zestril TAB] 40 mg PO QDAY 06/06/15 11/04/16 Unknown History Bisacodyl [Dulcolax suppos] 10 mg MT QDAY PRN #30 supp.rect 06/15/15 11/04/16 Rx Hydrochlorothiazide [HCTZ] 25 mg PO QDAY tablet 06/15/15 11/04/16 1 Day Ago Rx ~09/24/15 Aspirin [Aspirin BABY CHEW TAB] 81 mg PO QDAY #30 tab.chew 10/12/15 11/04/16 Unknown Rx AtorvaSTATin [Lipitor] 40 mg PO QHS #30 tablet 10/12/15 11/04/16 Unknown Rx Diltiazem Cd [Cardizem CD] 240 mg PO QDAY #30 capsule 10/12/15 11/04/16 Unknown Rx Furosemide [Lasix TAB] 40 mg PO BID #60 tablet 10/12/15 11/04/16 Unknown Rx Divalproex ER [Depakote ER] 300 mg PO TID 11/04/16 11/04/16 Unknown History Docusate Sodium [Colace] 100 mg PO DAILY 11/04/16 11/04/16 Unknown History Metoprolol [Lopressor TAB] 12.5 mg PO TID 11/04/16 11/04/16 Unknown History Nitrofurantoin [place]/M-Cryst 100 mg PO Q12HR #14 capsule 11/04/16 Unknown Rx [Macrobid CAP] Potassium Chloride 10 meq PO QDAY 11/04/16 11/04/16 Unknown History Warfarin [Coumadin] 4 mg PO DAILY@1700 11/04/16 11/04/16 Unknown History risperiDONE 1.5 mg PO BID 11/04/16 11/04/16 Unknown History traZODone [Desyrel] 50 mg PO QHS 11/04/16 11/04/16 Unknown History Acetaminophen [Acetaminophen TAB] 500 mg PO Q6HR PRN #20 tablet 11/08/16 Unknown Rx Amoxicillin/K Clav Tab [Augmentin 1 tab PO Q12HR #14 tab 11/08/16 Unknown Rx 875 mg] Benzocaine/Menthol [Cepacol Sore 1 each MM Q4H PRN #1 box 11/08/16 Unknown Rx Throat Lozenge] ARIPiprazole 30 mg PO DAILY 07/25/17 07/25/17 Unknown History Aspirin BABY CHEW TAB 81 mg PO DAILY 07/25/17 07/25/17 Unknown History AtorvaSTATin 20 mg PO DAILY 07/25/17 07/25/17 Unknown History Divalproex ER 500 mg PO DAILY 07/25/17 07/25/17 Unknown History Furosemide 40 mg PO DAILY 07/25/17 07/25/17 Unknown History Lisinopril 20 mg PO DAILY 07/25/17 07/25/17 Unknown History Metoprolol 100 mg PO DAILY 07/25/17 07/25/17 Unknown History Tamsulosin 0.4 mg PO DAILY 07/25/17 07/25/17 Unknown History Xarelto 20 mg PO DAILY 07/25/17 07/25/17 Unknown History traZODone 150 mg PO BID PRN 07/25/17 07/25/17 Unknown History Diltiazem Cd [Cardizem CD] 180 mg PO QHS #30 cap 07/27/17 Unknown Rx Metoprolol Xl [Metoprolol 100 mg PO QDAY #30 tablet 07/27/17 Unknown Rx SUCCINATE ER TAB] ED Review of Systems ROS: Stated complaint: IRREGULAR HEARTBEAT Other details as noted in HPI Comment: All other systems reviewed and negative Constitutional: denies: chills, fever Eyes: denies: eye pain, eye discharge, vision change ENT: denies: ear pain, throat pain Respiratory: shortness of breath. denies: cough Cardiovascular: palpitations, edema. denies: chest pain Gastrointestinal: denies: abdominal pain, nausea, diarrhea Genitourinary: denies: urgency, dysuria Musculoskeletal: denies: back pain, joint swelling, arthralgia Skin: denies: rash, lesions Neurological: denies: headache, weakness, paresthesias Physical Exam - Physical Exam Vital Signs: Vital Signs 08/11/17 00:09 Temperature 98.1 F Pulse Rate 144 H Respiratory 20 Rate Blood Pressure 157/106 O2 Sat by Pulse 98 Oximetry Physical Exam: GENERAL: The patient is well-developed well-nourished. HENT: Normocephalic. Atraumatic. Patient has moist mucous membranes. EYES: Extraocular motions are intact. Pupils equal reactive to light bilaterally. NECK: Supple. Trachea is midline. CHEST/LUNGS: Clear to auscultation. There is no respiratory distress noted. HEART/CARDIOVASCULAR: Irregularly irregular with rapid rate. No obvious murmur. ABDOMEN: Abdomen is soft, nontender. Patient has normal bowel sounds. There is no abdominal distention. SKIN: Skin is warm and dry. NEURO: The patient is awake, alert. The patient is cooperative. The patient has no focal neurologic deficits. The patient has normal speech. MUSCULOSKELETAL: There is no tenderness or deformity. There is no limitation range of motion. There is no evidence of acute injury. ED Course Vital Signs 08/11/17 00:09 Temperature 98.1 F Pulse Rate 144 H Respiratory 20 Rate Blood Pressure 157/106 O2 Sat by Pulse 98 Oximetry - Reevaluation(s) Reevaluation #1: The patient has just changed his mind and is now allowing for an IV to be placed and will comply with receiving medical treatment for his atrial fibrillation with RVR for rate control. A consult has already been placed for cardiology but the patient will be admitted to telemetry. 08/11/17 06:45 - Consultations Consultation #1: I spoke with Dr. Paulino, cardiology, and let him know that the patient has presented with atrial fibrillation with RVR but is refusing IV placement. The patient says that his plan is to follow up with the rehabilitation nurse this morning even though his heart rate is still between 120 and 150. The patient has chronic atrial fibrillation and is anticoagulated but is not currently rate controlled. Dr. Paulino said that we do not need to do any emergent oral medications for the RVR at this time and that they will see him in the emergency department this morning as a consult. 08/11/17 06:34 ED Medical Decision Making - Lab Data Result diagrams: 08/11/17 00:46 08/11/17 00:46 - EKG Data -: EKG Interpreted by Me - EKG Data When compared to previous EKG there are: no significant change (07/26/17, except for current EKG shows RVR) Interpretation: other (history of fibrillation with RVR at a rate of 150 bpm, Q waves to the anterior and septal leads, nonspecific ST-T waves) - Radiology Data Radiology results: image reviewed interpreted by me: Chest x-ray does not show any acute process. There are no pleural effusions, obvious pneumonia and there is no pneumothorax. - Medical Decision Making The patient originally called the ambulance secondary to shortness of breath. He has chronic atrial fibrillation but is in RVR currently with a rate that goes between 120 and 150. The patient was going to be treated with some IV Cardizem around 1 AM this morning but at that point the patient refused IV placement. I discussed with him the risks of not being treated at work to include heart attack, weakness, or even . However I did not feel comfortable at that time having the patient sign out AGAINST MEDICAL ADVICE as he did not necessarily appear stable with his ambulation and did not have any way to safely get home if he chose to leave. He agreed to stay in the room and sleep in the bed for a while. I had contacted the cardiology service who had agreed to see him as a consult in the emergency department if necessary and possibly some changes could be made to his medications for rate control. However about 6:30 AM this morning, patient changed his mind and will allow IV placement and medications to be given. He will receive IV Cardizem for rate control and I was given permission by the overnight hospitalist to place bridging orders for one of the morning hospitalist's for this patient to be admitted to the telemetry floor. The cardiology consult has already been placed. The patient is already anticoagulated. Dictation saw was used for certain portions of this chart and therefore there may be some dictation errors within these notes. - Differential Diagnosis atrial fibrillation, SVT, NM, CHF Critical Care Time: No Critical care attestation.: If time is entered above; I have spent that time in minutes in the direct care of this critically ill patient, excluding procedure time. ED Disposition Clinical Impression: Atrial fibrillation with RVR Dyspnea Qualifiers: Dyspnea type: unspecified Qualified Code(s): R06.00 - Dyspnea, unspecified Hypertension Qualifiers: Hypertension type: essential hypertension Qualified Code(s): I10 - Essential ( primary) hypertension Disposition: DC-07 LEFT AGAINST MED ADVICE Is pt being admited?: Yes Does the pt Need Aspirin: Yes Condition: Stable Time of Disposition: 06:44
--- NOTE | 2017-08-11 00:58 | XRay Report ---
FINAL REPORT PROCEDURE: XR CHEST 1V AP TECHNIQUE: Chest radiograph anteroposterior view. CPT 49189 HISTORY: Chest Pain COMPARISON: No prior studies are available for comparison. FINDINGS: Heart: The heart size is mildly enlarged.. Mediastinum/Vessels: Normal. Lungs/Pleural space: Slight atelectasis left lower lung. No effusion or pneumothorax. Bony thorax: No acute osseous abnormality. Life support devices: None. IMPRESSION: Mild cardiomegaly. Mild atelectasis left lower lung.
[2017-08-11 01:12] LABS: Hematocrit 31.6 % (35.5-45.6); Hemoglobin 9.8 gm/dl (11.8-15.2); Mean Corpuscular HGB Conc 31 % (32-34); Mean Corpuscular Volume 70 fl (84-94); Platelet Count 156 K/mm3 (140-440); Red Blood Count 4.51 M/mm3 (3.65-5.03)
[2017-08-11 01:16] LABS: Mean Corpuscular Hemoglobin 22 pg (28-32)
[2017-08-11 01:31] LABS: Albumin 3.8 g/dL (3.9-5); Calcium 8.9 mg/dL (8.4-10.2)
[2017-08-11 05:33] LABS: Band Neutrophils # (Manual) 0.2 K/mm3; Basophils % (Manual) 0 % (0.0-1.8); Total Cells Counted 100
[2017-08-11 05:34] LABS: Anisocytosis 1+; Hypochromasia 1+; Ovalocytes 1+; Schistocytes Rare
[2017-08-11 07:45] VITALS: BP 143/79
--- NOTE | 2017-08-11 09:40 | History and Physical Report ---
History of Present Illness Date of examination: 08/11/17 Date of admission: 08/11/17 Medications and Allergies Allergies Allergy/AdvReac Type Severity Reaction Status Date / Time shellfish derived Allergy Itching Verified 06/26/14 13:56 Home Medications Medication Instructions Recorded Confirmed Last Taken Type Lisinopril [Zestril TAB] 40 mg PO QDAY 06/06/15 11/04/16 Unknown History Bisacodyl [Dulcolax suppos] 10 mg [place] QDAY PRN #30 supp.rect 06/15/15 11/04/16 Rx Hydrochlorothiazide [HCTZ] 25 mg PO QDAY tablet 06/15/15 11/04/16 1 Day Ago Rx ~09/24/15 Aspirin [Aspirin BABY CHEW TAB] 81 mg PO QDAY #30 tab.chew 10/12/15 11/04/16 Unknown Rx AtorvaSTATin [Lipitor] 40 mg PO QHS #30 tablet 10/12/15 11/04/16 Unknown Rx Diltiazem Cd [Cardizem CD] 240 mg PO QDAY #30 capsule 10/12/15 11/04/16 Unknown Rx Furosemide [Lasix TAB] 40 mg PO BID #60 tablet 10/12/15 11/04/16 Unknown Rx Divalproex ER [Depakote ER] 300 mg PO TID 11/04/16 11/04/16 Unknown History Docusate Sodium [Colace] 100 mg PO DAILY 11/04/16 11/04/16 Unknown History Metoprolol [Lopressor TAB] 12.5 mg PO TID 11/04/16 11/04/16 Unknown History Nitrofurantoin [place]/M-Cryst 100 mg PO Q12HR #14 capsule 11/04/16 Unknown Rx [Macrobid CAP] Potassium Chloride 10 meq PO QDAY 11/04/16 11/04/16 Unknown History Warfarin [Coumadin] 4 mg PO DAILY@1700 11/04/16 11/04/16 Unknown History risperiDONE 1.5 mg PO BID 11/04/16 11/04/16 Unknown History traZODone [Desyrel] 50 mg PO QHS 11/04/16 11/04/16 Unknown History Acetaminophen [Acetaminophen TAB] 500 mg PO Q6HR PRN #20 tablet 11/08/16 Unknown Rx Amoxicillin/K Clav Tab [Augmentin 1 tab PO Q12HR #14 tab 11/08/16 Unknown Rx 875 mg] Benzocaine/Menthol [Cepacol Sore 1 each MM Q4H PRN #1 box 11/08/16 Unknown Rx Throat Lozenge] ARIPiprazole 30 mg PO DAILY 07/25/17 07/25/17 Unknown History Aspirin BABY CHEW TAB 81 mg PO DAILY 07/25/17 07/25/17 Unknown History AtorvaSTATin 20 mg PO DAILY 07/25/17 07/25/17 Unknown History Divalproex ER 500 mg PO DAILY 07/25/17 07/25/17 Unknown History Furosemide 40 mg PO DAILY 07/25/17 07/25/17 Unknown History Lisinopril 20 mg PO DAILY 07/25/17 07/25/17 Unknown History Metoprolol 100 mg PO DAILY 07/25/17 07/25/17 Unknown History Tamsulosin 0.4 mg PO DAILY 07/25/17 07/25/17 Unknown History Xarelto 20 mg PO DAILY 07/25/17 07/25/17 Unknown History traZODone 150 mg PO BID PRN 07/25/17 07/25/17 Unknown History Diltiazem Cd [Cardizem CD] 180 mg PO QHS #30 cap 07/27/17 Unknown Rx Metoprolol Xl [Metoprolol 100 mg PO QDAY #30 tablet 07/27/17 Unknown Rx SUCCINATE ER TAB] Active Meds: Active Medications Aspirin (Baby Aspirin) 81 mg PO QDAY [facility] Atorvastatin Calcium (Lipitor) 40 mg PO QHS [facility] Bisacodyl (Dulcolax) 10 mg [place] QDAY PRN PRN Reason: Constipation unrelieved by MOM Diltiazem HCl (Cardizem Cd) 240 mg PO QDAY [facility] Lisinopril (Zestril) 40 mg PO QDAY [facility] Metoprolol Tartrate (Lopressor) 12.5 mg PO TID [facility] Miscellaneous Medication (Aripiprazole) 30 mg PO DAILY [facility] Miscellaneous Medication (Furosemide) 40 mg PO DAILY [facility] Miscellaneous Medication (Risperidone [Risperidone]) 1.5 mg PO BID [facility] Miscellaneous Medication (Tamsulosin) 0.4 mg PO DAILY [facility] Miscellaneous Medication (Xarelto) 20 mg PO DAILY [facility] Trazodone HCl (Desyrel) 50 mg PO QHS [facility] Exam - Constitutional Vitals: Temp Pulse Resp BP Pulse Ox 98.1 F 109 H 20 143/79 100 08/11/17 00:09 08/11/17 07:44 08/11/17 07:35 08/11/17 07:44 08/11/17 07:35 Results - Labs CBC & Chem 7: 08/11/17 00:46 08/11/17 00:46 Labs: Abnormal lab results 08/11/17 08/11/17 Range/Units 00:46 00:46 Hgb 9.8 L (11.8-15.2) gm/dl Hct 31.6 L (35.5-45.6) % MCV 70 L (84-94) fl MCH 22 L (28-32) pg MCHC 31 L (32-34) % RDW 23.0 H (13.2-15.2) % Eosinophils % (Manual) 5.0 H (0.0-4.3) % BUN 24 H (9-20) mg/dL NT-Pro-B Natriuret Pep 35516 H (0-900) pg/mL Albumin 3.8 L (3.9-5) g/dL
[2017-08-11] MEDS ORDERED: RISPERIDONE 1.5 MG PO SCH (10:00)
[2017-08-11] MEDS ORDERED: NON-FORMULARY (Tamsulosin 0.4 MG) PO SCH (10:00)
[2017-08-11] MEDS ORDERED: NON-FORMULARY (Furosemide 40 MG) PO SCH (10:00)
[2017-08-11] MEDS ORDERED: ARIPIPRAZOLE 30 MG PO SCH (10:00)
[2017-08-11] MEDS ORDERED: NON-FORMULARY (Xarelto 20 MG) PO SCH (10:00)
[2017-08-11] MEDS ORDERED: XARELTO PO SCH (11:00)
[2017-08-11] MEDS ORDERED: RisperDAL PO SCH (11:00)
[2017-08-11] MEDS ORDERED: FLOMAX PO SCH (11:00)
[2017-08-11] MEDS ORDERED: LASIX PO SCH (11:00)
[2017-08-11] MEDS ORDERED: CARDIZEM CD PO SCH (11:00)
[2017-08-11] MEDS ORDERED: DULCOLAX PR PRN (11:00)
[2017-08-11] MEDS ORDERED: BABY ASPIRIN PO SCH (11:00)
[2017-08-11] MEDS ORDERED: ZESTRIL PO SCH (11:00)
[2017-08-11] MEDS ORDERED: ABILIFY PO SCH (12:00)
[2017-08-11] MEDS ORDERED: LOPRESSOR PO SCH (14:00)
--- NOTE | 2017-08-11 17:11 | Event Note ---
Date: 08/11/17 The nurses reported that the patient left the hospital and was not found in the room . I Did not see the patient, please refer to medical records for details
[2017-08-11] MEDS ORDERED: DESYREL PO SCH (22:00)
== END 2017-08-11 14:34 | disposition left against medical advice (07) ==
LOC: ED 23:43 → UNDOADMIN 08-11 06:54 → 4A 08-11 06:54 → INTOOBSV 08-11 14:08 → 4A 08-11 14:08
PROVIDERS: ADMIT Internal Medicine; ATTEND Internal Medicine
DX: I48.91 Unspecified atrial fibrillation (principal); F31.9 Bipolar disorder, unspecified; R06.00 Dyspnea, unspecified; E78.5 Hyperlipidemia, unspecified; I25.10 Atherosclerotic heart disease of native coronary artery without angina pectoris; I11.0 Hypertensive heart disease with heart failure; I50.9 Heart failure, unspecified; I25.2 Old myocardial infarction; Z86.73 Personal history of transient ischemic attack (TIA), and cerebral infarction without residual deficits; Z86.718 Personal history of other venous thrombosis and embolism; Z79.01 Long term (current) use of anticoagulants; Z95.818 Presence of other cardiac implants and grafts; Z79.899 Other long term (current) drug therapy
CPT/HCPCS: 36415; 71045; 80053; 83880; 84443; 84484; 85007; 85025; 99285; G0378

== ENCOUNTER 2017-08-23 02:27 | Inpatient (IN) | payer MEDICARE ==
[2017-08-23] MEDS ORDERED: LASIX IV ONE (02:53)
--- NOTE | 2017-08-23 02:58 | Emergency Department Report ---
ED Shortness of Breath HPI - General Chief Complaint: Dyspnea/Respdistress Stated Complaint: SOB Time Seen by Provider: 08/23/17 02:46 Source: patient, EMS Mode of arrival: Ambulatory Limitations: No Limitations - History of Present Illness Initial Comments: Patient is 72 years old male with history of congestive heart failure. Patient presented to the ER via EMS complaining of shortness of breath and bilateral lower extremity swelling and palpitation. Patient stated that his symptoms is been going on for 3 days. Patient is a very poor historian that he denied any chest pain recently. He also denied any fever, cough, nausea or vomiting. MD Complaint: shortness of breath - Related Data Home Medications Medication Instructions Recorded Confirmed Last Taken Lisinopril [Zestril TAB] 40 mg PO QDAY 06/06/15 11/04/16 Unknown Divalproex ER [Depakote ER] 300 mg PO TID 11/04/16 11/04/16 Unknown Docusate Sodium [Colace] 100 mg PO DAILY 11/04/16 11/04/16 Unknown Metoprolol [Lopressor TAB] 12.5 mg PO TID 11/04/16 11/04/16 Unknown Potassium Chloride 10 meq PO QDAY 11/04/16 11/04/16 Unknown Warfarin [Coumadin] 4 mg PO DAILY@1700 11/04/16 11/04/16 Unknown risperiDONE 1.5 mg PO BID 11/04/16 11/04/16 Unknown traZODone [Desyrel] 50 mg PO QHS 11/04/16 11/04/16 Unknown ARIPiprazole 30 mg PO DAILY 07/25/17 07/25/17 Unknown Aspirin BABY CHEW TAB 81 mg PO DAILY 07/25/17 07/25/17 Unknown AtorvaSTATin 20 mg PO DAILY 07/25/17 07/25/17 Unknown Divalproex ER 500 mg PO DAILY 07/25/17 07/25/17 Unknown Furosemide 40 mg PO DAILY 07/25/17 07/25/17 Unknown Lisinopril 20 mg PO DAILY 07/25/17 07/25/17 Unknown Metoprolol 100 mg PO DAILY 07/25/17 07/25/17 Unknown Tamsulosin 0.4 mg PO DAILY 07/25/17 07/25/17 Unknown Xarelto 20 mg PO DAILY 07/25/17 07/25/17 Unknown traZODone 150 mg PO BID PRN 07/25/17 07/25/17 Unknown Previous Rx's Medication Instructions Recorded Last Taken Type Bisacodyl [Dulcolax suppos] 10 mg [place] QDAY PRN #30 supp.rect 06/15/15 09/25/15 Rx Hydrochlorothiazide [HCTZ] 25 mg PO QDAY tablet 06/15/15 1 Day Ago Rx ~09/24/15 Aspirin [Aspirin BABY CHEW TAB] 81 mg PO QDAY #30 tab.chew 10/12/15 Unknown Rx AtorvaSTATin [Lipitor] 40 mg PO QHS #30 tablet 10/12/15 Unknown Rx Diltiazem Cd [Cardizem CD] 240 mg PO QDAY #30 capsule 10/12/15 Unknown Rx Furosemide [Lasix TAB] 40 mg PO BID #60 tablet 10/12/15 Unknown Rx Nitrofurantoin [place]/M-Cryst 100 mg PO Q12HR #14 capsule 11/04/16 Unknown Rx [Macrobid CAP] Acetaminophen [Acetaminophen TAB] 500 mg PO Q6HR PRN #20 tablet 11/08/16 Unknown Rx Amoxicillin/K Clav Tab [Augmentin 1 tab PO Q12HR #14 tab 11/08/16 Unknown Rx 875 mg] Benzocaine/Menthol [Cepacol Sore 1 each MM Q4H PRN #1 box 11/08/16 Unknown Rx Throat Lozenge] Diltiazem Cd [Cardizem CD] 180 mg PO QHS #30 cap 07/27/17 Unknown Rx Metoprolol Xl [Metoprolol 100 mg PO QDAY #30 tablet 07/27/17 Unknown Rx SUCCINATE ER TAB] Allergies Allergy/AdvReac Type Severity Reaction Status Date / Time shellfish derived Allergy Itching Verified 06/26/14 13:56 ED Review of Systems ROS: Stated complaint: SOB Other details as noted in HPI Comment: All other systems reviewed and negative Constitutional: denies: chills, fever Respiratory: orthopnea, shortness of breath, SOB with exertion, SOB at rest. denies: cough, stridor, wheezing Cardiovascular: palpitations, orthopnea, edema, paroxysmal nocturnal dyspnea. denies: chest pain, dyspnea on exertion Gastrointestinal: denies: abdominal pain, nausea, vomiting, diarrhea Neurological: denies: headache, weakness, numbness, paresthesias, confusion, abnormal gait ED Past Medical Hx - Past Medical History Previous Medical History?: Yes Hx Hypertension: Yes Hx CVA: Yes (2011) Hx Heart Attack/AMI: Yes Hx Congestive Heart Failure: Yes Hx Deep Vein Thrombosis: Yes (bilat DVT) Hx Arthritis: Yes Hx Psychiatric Treatment: Yes (Bipolar,) Hx Asthma: No Hx Tuberculosis: No Hx HIV: No Additional medical history: Afib, - Surgical History Past Surgical History?: Yes Hx Coronary Stent: Yes (2013) Hx Open Heart Surgery: No Hx Pacemaker: No Hx Internal Defibrillator: No Additional Surgical History: Cardiac stents, - Social History Smoking Status: Never Smoker Substance Use Type: Prescribed - Medications Home Medications: Home Medications Medication Instructions Recorded Confirmed Last Taken Type Lisinopril [Zestril TAB] 40 mg PO QDAY 06/06/15 11/04/16 Unknown History Bisacodyl [Dulcolax suppos] 10 mg [place] QDAY PRN #30 supp.rect 06/15/15 11/04/16 Rx Hydrochlorothiazide [HCTZ] 25 mg PO QDAY tablet 06/15/15 11/04/16 1 Day Ago Rx ~09/24/15 Aspirin [Aspirin BABY CHEW TAB] 81 mg PO QDAY #30 tab.chew 10/12/15 11/04/16 Unknown Rx AtorvaSTATin [Lipitor] 40 mg PO QHS #30 tablet 10/12/15 11/04/16 Unknown Rx Diltiazem Cd [Cardizem CD] 240 mg PO QDAY #30 capsule 10/12/15 11/04/16 Unknown Rx Furosemide [Lasix TAB] 40 mg PO BID #60 tablet 10/12/15 11/04/16 Unknown Rx Divalproex ER [Depakote ER] 300 mg PO TID 11/04/16 11/04/16 Unknown History Docusate Sodium [Colace] 100 mg PO DAILY 11/04/16 11/04/16 Unknown History Metoprolol [Lopressor TAB] 12.5 mg PO TID 11/04/16 11/04/16 Unknown History Nitrofurantoin [place]/M-Cryst 100 mg PO Q12HR #14 capsule 11/04/16 Unknown Rx [Macrobid CAP] Potassium Chloride 10 meq PO QDAY 11/04/16 11/04/16 Unknown History Warfarin [Coumadin] 4 mg PO DAILY@1700 11/04/16 11/04/16 Unknown History risperiDONE 1.5 mg PO BID 11/04/16 11/04/16 Unknown History traZODone [Desyrel] 50 mg PO QHS 11/04/16 11/04/16 Unknown History Acetaminophen [Acetaminophen TAB] 500 mg PO Q6HR PRN #20 tablet 11/08/16 Unknown Rx Amoxicillin/K Clav Tab [Augmentin 1 tab PO Q12HR #14 tab 11/08/16 Unknown Rx 875 mg] Benzocaine/Menthol [Cepacol Sore 1 each MM Q4H PRN #1 box 11/08/16 Unknown Rx Throat Lozenge] ARIPiprazole 30 mg PO DAILY 07/25/17 07/25/17 Unknown History Aspirin BABY CHEW TAB 81 mg PO DAILY 07/25/17 07/25/17 Unknown History AtorvaSTATin 20 mg PO DAILY 07/25/17 07/25/17 Unknown History Divalproex ER 500 mg PO DAILY 07/25/17 07/25/17 Unknown History Furosemide 40 mg PO DAILY 07/25/17 07/25/17 Unknown History Lisinopril 20 mg PO DAILY 07/25/17 07/25/17 Unknown History Metoprolol 100 mg PO DAILY 07/25/17 07/25/17 Unknown History Tamsulosin 0.4 mg PO DAILY 07/25/17 07/25/17 Unknown History Xarelto 20 mg PO DAILY 07/25/17 07/25/17 Unknown History traZODone 150 mg PO BID PRN 07/25/17 07/25/17 Unknown History Diltiazem Cd [Cardizem CD] 180 mg PO QHS #30 cap 07/27/17 Unknown Rx Metoprolol Xl [Metoprolol 100 mg PO QDAY #30 tablet 07/27/17 Unknown Rx SUCCINATE ER TAB] ED Physical Exam - General Limitations: No Limitations General appearance: alert, in distress (moderate respiratory distress) - Head Head exam: Present: atraumatic, normocephalic, normal inspection - Eye Eye exam: Present: normal appearance - ENT ENT exam: Present: normal exam, normal orophraynx, mucous membranes moist - Neck Neck exam: Present: normal inspection, full ROM. Absent: tenderness, meningismus, lymphadenopathy, thyromegaly - Respiratory Respiratory exam: Present: respiratory distress, rales, decreased breath sounds. Absent: wheezes, rhonchi, stridor, accessory muscle use, prolonged expiratory - Cardiovascular Cardiovascular Exam: Present: tachycardia, irregular rhythm - GI/Abdominal GI/Abdominal exam: Present: soft, normal bowel sounds. Absent: distended, tenderness, guarding, rebound, rigid, organomegaly, mass, bruit, pulsatile mass , hernia - Extremities Exam Extremities exam: Present: full ROM, pedal edema. Absent: tenderness, calf tenderness - Back Exam Back exam: Present: normal inspection, full ROM. Absent: tenderness, CVA tenderness (R), CVA tenderness (L), muscle spasm, paraspinal tenderness, vertebral tenderness - Neurological Exam Neurological exam: Present: alert, oriented X3, CN II-XII intact - Skin Skin exam: Present: warm, intact, normal color ED Course Vital Signs 08/23/17 08/23/17 08/23/17 02:28 02:30 02:32 Temperature 98.1 F Pulse Rate 120 H 123 H 122 H Respiratory 29 H 37 H 22 Rate Blood Pressure 134/100 134/95 O2 Sat by Pulse 96 94 99 Oximetry 08/23/17 08/23/17 08/23/17 02:45 03:00 03:15 Temperature Pulse Rate 132 H 143 H 137 H Respiratory 21 22 20 Rate Blood Pressure 137/101 134/104 136/107 O2 Sat by Pulse 77 L 82 L Oximetry 08/23/17 03:31 Temperature Pulse Rate 140 H Respiratory 25 H Rate Blood Pressure 135/108 O2 Sat by Pulse 92 Oximetry ED Medical Decision Making - Lab Data Result diagrams: 08/23/17 02:54 08/23/17 02:54 - EKG Data -: EKG Interpreted by Mo Rate: tachycardia - EKG Data Interpretation: other (atrial fibrillation with RVR) - Radiology Data Radiology results: report reviewed Referring Physician: MEHDI KAISER Patient Name: YAMINI KOENIG Date of : 1945 Sex: Male Report Date: 2017-08-23 Report Status: Finalized Findings [facility] [address] [place] [address] XRay Report Signed Patient: YAMINI KOENIG MR#: [id number] : 1945 Acct:[id number] Age/Sex: 72 / M ADM Date: 08/23/17 Loc: ED Attending Dr: Ordering Physician: MEHDI KAISER Date of Service: 08/23/17 Procedure(s): XR chest 1V ap Accession Number(s): [id number] cc: MEHDI KAISER Fluoro Time In Minutes: FINAL REPORT PROCEDURE: XR CHEST 1V AP TECHNIQUE: Chest radiograph anteroposterior view. CPT 79146 HISTORY: SOB COMPARISON: 08/10/2017 FINDINGS: Heart: Normal. Mediastinum/Vessels: Normal. Lungs/Pleural space: Vascular congestion with bilateral lower lung atelectasis. No effusion or pneumothorax. Bony thorax: No acute osseous abnormality. Life support devices: None. IMPRESSION: Vascular congestion with bilateral lower lung atelectasis.. Transcribed By: [facility] Dictated By: LUCY GIRON MD Electronically Authenticated By: LUCY GIRON MD Signed Date/Time: 08/23/17316 DD/ 6 TD/TT: 08/23/17316 - Medical Decision Making Discussed the patient with Dr. Katherin Medina, SHE AGREED TO ADMIT THE PATIENT TO OUR SERVICE. Critical Care Time: Yes Critical care time in (mins) excluding proc time.: 30 Critical care attestation.: If time is entered above; I have spent that time in minutes in the direct care of this critically ill patient, excluding procedure time. ED Disposition Clinical Impression: Atrial fibrillation with RVR, Heart failure with preserved ejection fraction Disposition: OP ADMIT IP TO THIS HOSP Is pt being admited?: Yes Condition: Stable Referrals: PRIMARY CARE, [Primary Care Provider] - 3-5 Days
[2017-08-23] MEDS ORDERED: CARDIZEM/D5W 100MG/100ML 100 MG/100 ML BAG IV SCH (03:00)
--- NOTE | 2017-08-23 03:21 | XRay Report ---
FINAL REPORT PROCEDURE: XR CHEST 1V AP TECHNIQUE: Chest radiograph anteroposterior view. CPT 37061 HISTORY: SOB COMPARISON: 08/10/2017 FINDINGS: Heart: Normal. Mediastinum/Vessels: Normal. Lungs/Pleural space: Vascular congestion with bilateral lower lung atelectasis. No effusion or pneumothorax. Bony thorax: No acute osseous abnormality. Life support devices: None. IMPRESSION: Vascular congestion with bilateral lower lung atelectasis..
[2017-08-23 03:43] LABS: Red Blood Count 4.75 M/mm3 (3.65-5.03)
[2017-08-23 03:44] LABS: Hematocrit 33.8 % (35.5-45.6); Hemoglobin 10.7 gm/dl (11.8-15.2); Mean Corpuscular Hemoglobin 23 pg (28-32); Mean Corpuscular Volume 71 fl (84-94)
[2017-08-23 03:45] LABS: Basophils % (Auto) 0.6 % (0.0-1.8); Eosinophils # (Auto) 0.1 K/mm3 (0.0-0.4); Eosinophils % (Auto) 2.1 % (0.0-4.3); Lymphocytes # (Auto) 1.3 K/mm3 (1.2-5.4); Lymphocytes % (Auto) 20.5 % (13.4-35.0); Mean Corpuscular HGB Conc 32 % (32-34); Mean Platelet Volume 9.9 fl (6-12); Monocytes # (Auto) 0.8 K/mm3 (0.0-0.8); Monocytes % (Auto) 12.4 % (0.0-7.3); Platelet Count 217 K/mm3 (140-440); Red Cell Distribution Width 22.8 % (13.2-15.2)
[2017-08-23 03:47] LABS: BUN/Creatinine Ratio 20; Blood Urea Nitrogen 28 mg/dL (9-20); Calcium 9.3 mg/dL (8.4-10.2); Hemolysis Index 5
--- NOTE | 2017-08-23 04:52 | History and Physical Report ---
History of Present Illness Date of examination: 08/23/17 History of present illness: 72-year-old man with a history of A. fib on Coumadin, CHF, hypertension, DVT, coronary artery disease, previous CVA, thoracic aneurysm, and bipolar comes emergency room with complaints ofpalpitations, shotness of brerah, PND, swollen legs, which started 2 days ago. He ran out of his medications 3 days ago. In the emergency room he was found to be in A. fib with rapid ventricular rate in the 180s and started on cardizem drip Review of systems Constitutional: no weight loss, chills, fever Ears, eyes, nose, mouth and throat: no nasal congestion, no nasal discharge, no sinus pressure, no vision change, no red eye. Neck: No neck pain or rigidity. Cardiovascular: no chest pain, +palpitations Respiratory: no cough,+ shortness of breath Gastrointestinal: noabdominal pain, hematochezia Genitourinary : no frequency , no hematuria Musculoskeletal: no joint swelling or muscle ache Integumentary: no rash, no pruritis Neurological: no parathesias, no numbness, no focal weakness Endocrine: no cold or heat intolerance, no polyuria or polydipsia Hematologic/Lymphatic: no easy bruising, no easy bleeding, no gland swelling Allergic/Immunologic: no urticaria, no angioedema. PAST MEDICAL HISTORY:A. fib on Coumadin, CHF, hypertension, DVT, coronary artery disease, previous CVA, thoracic aneurysm, and bipolar PAST SURGICAL HISTORY: IVC filter, tonsillectomy SOCIAL HISTORY: Denies alcohol, tobacco, drugs FAMILY HISTORY: Hypertension, diabetes Medications and Allergies Allergies Allergy/AdvReac Type Severity Reaction Status Date / Time shellfish derived Allergy Itching Verified 06/26/14 13:56 Home Medications Medication Instructions Recorded Confirmed Last Taken Type Lisinopril [Zestril TAB] 40 mg PO QDAY 06/06/15 11/04/16 Unknown History Bisacodyl [Dulcolax suppos] 10 mg [place] QDAY PRN #30 supp.rect 06/15/15 11/04/16 Rx Hydrochlorothiazide [HCTZ] 25 mg PO QDAY tablet 06/15/15 11/04/16 1 Day Ago Rx ~09/24/15 Aspirin [Aspirin BABY CHEW TAB] 81 mg PO QDAY #30 tab.chew 10/12/15 11/04/16 Unknown Rx AtorvaSTATin [Lipitor] 40 mg PO QHS #30 tablet 10/12/15 11/04/16 Unknown Rx Diltiazem Cd [Cardizem CD] 240 mg PO QDAY #30 capsule 10/12/15 11/04/16 Unknown Rx Furosemide [Lasix TAB] 40 mg PO BID #60 tablet 10/12/15 11/04/16 Unknown Rx Divalproex ER [Depakote ER] 300 mg PO TID 11/04/16 11/04/16 Unknown History Docusate Sodium [Colace] 100 mg PO DAILY 11/04/16 11/04/16 Unknown History Metoprolol [Lopressor TAB] 12.5 mg PO TID 11/04/16 11/04/16 Unknown History Nitrofurantoin [place]/M-Cryst 100 mg PO Q12HR #14 capsule 11/04/16 Unknown Rx [Macrobid CAP] Potassium Chloride 10 meq PO QDAY 11/04/16 11/04/16 Unknown History Warfarin [Coumadin] 4 mg PO DAILY@1700 11/04/16 11/04/16 Unknown History risperiDONE 1.5 mg PO BID 11/04/16 11/04/16 Unknown History traZODone [Desyrel] 50 mg PO QHS 11/04/16 11/04/16 Unknown History Acetaminophen [Acetaminophen TAB] 500 mg PO Q6HR PRN #20 tablet 11/08/16 Unknown Rx Amoxicillin/K Clav Tab [Augmentin 1 tab PO Q12HR #14 tab 11/08/16 Unknown Rx 875 mg] Benzocaine/Menthol [Cepacol Sore 1 each MM Q4H PRN #1 box 11/08/16 Unknown Rx Throat Lozenge] ARIPiprazole 30 mg PO DAILY 07/25/17 07/25/17 Unknown History Aspirin BABY CHEW TAB 81 mg PO DAILY 07/25/17 07/25/17 Unknown History AtorvaSTATin 20 mg PO DAILY 07/25/17 07/25/17 Unknown History Divalproex ER 500 mg PO DAILY 07/25/17 07/25/17 Unknown History Furosemide 40 mg PO DAILY 07/25/17 07/25/17 Unknown History Lisinopril 20 mg PO DAILY 07/25/17 07/25/17 Unknown History Metoprolol 100 mg PO DAILY 07/25/17 07/25/17 Unknown History Tamsulosin 0.4 mg PO DAILY 07/25/17 07/25/17 Unknown History Xarelto 20 mg PO DAILY 07/25/17 07/25/17 Unknown History traZODone 150 mg PO BID PRN 07/25/17 07/25/17 Unknown History Diltiazem Cd [Cardizem CD] 180 mg PO QHS #30 cap 07/27/17 Unknown Rx Metoprolol Xl [Metoprolol 100 mg PO QDAY #30 tablet 07/27/17 Unknown Rx SUCCINATE ER TAB] Active Meds: Active Medications Diltiazem HCl (Cardizem/D5w 100mg/100ml) 100 mg in 100 mls @ 5 mls/hr IV TITR PATRICK; Protocol Last Titration: 08/23/17 04:15 Dose: 15 mg/hr, 15 mls/hr Exam - Physical Exam Narrative exam: Gen. appearance: Patient lying in bed, no apparent distress HEENT: Normocephalic, atraumatic, pupils equally round and reactive to light, extraocular movement intact, and no sclericterus,. No JVD or thyromegaly or nodule,neck supple, no carotid bruit ,mucous membranes moist, no exudate or erythema Heart: S1, S2, regular rate and rhythm Lungs: Crackles bilaterally, breathing comfortable Abdomen: Positive bowel sounds, nontender, nondistended, no organomegaly Extremity: 2+edema, cyanosis, clubbing Skin: No rash, nodules, warm, dry Neuro: Oriented 3, cranial nerves II-12 intact, speech is fluent, motor and sensory intact - Constitutional Vitals: Temp Pulse Resp BP Pulse Ox 98.1 F 140 H 25 H 135/108 92 08/23/17 02:32 08/23/17 03:31 08/23/17 03:31 08/23/17 03:31 08/23/17 03:31 Results - Labs CBC & Chem 7: 08/31/17 04:30 08/30/17 04:00 Labs: Abnormal lab results 08/23/17 08/23/17 08/23/17 Range/Units 02:54 02:54 02:54 Hgb 10.7 L (11.8-15.2) gm/dl Hct 33.8 L (35.5-45.6) % MCV 71 L (84-94) fl MCH 23 L (28-32) pg RDW 22.8 H (13.2-15.2) % [place] % (Auto) 12.4 H (0.0-7.3) % BUN 28 H (9-20) mg/dL Troponin T 0.077 H (0.00-0.029) ng/mL NT-Pro-B Natriuret Pep 51096 H (0-900) pg/mL - Imaging and Cardiology EKG: image reviewed Chest x-ray: report reviewed Assessment and Plan Assessment A Fib with rvr CHF exacerbation, diastolic dysfunction Coronary artery disease Hypertension History of CVA, DVT Thoracic aneurysm Admits medicine Continue Cardizem drip Start IV Lasix, aspirin, start HUSAM inhibitor Check cardiac enzymes, echo, consult cardiology CheckPT/INR Monitor I's and O's, daily weights continue appropriate outpatient medications
[2017-08-23] MEDS ORDERED: SODIUM CHLORIDE FLUSH SYRINGE 10 ML IV PRN (04:59)
[2017-08-23] MEDS ORDERED: ZOFRAN IV PRN (04:59)
[2017-08-23 05:42] LABS: Creatine Kinase MB 4.4 ng/mL (0.0-4.0)
[2017-08-23 06:44] LABS: INR 1.17 (0.87-1.13)
[2017-08-23] MEDS: LASIX IV SCH (07:30)
[2017-08-23] MEDS ORDERED: HALDOL IM PRN (10:19)
[2017-08-23] MEDS ORDERED: HALDOL IM ONE (10:28)
[2017-08-23] MEDS: SODIUM CHLORIDE FLUSH SYRINGE 10 ML IV SCH ×2 (10:30→22:05)
--- NOTE | 2017-08-23 11:12 | Consultation ---
History of Present Illness Consult date: 08/23/17 Consult reason: shortness of breath History of present illness: The patient is a 72-year-old man with multiple medical problems. Has a history of bipolar disease, chronic hypertension, obesity, chronic atrial fibrillation, prior deep vein thrombosis, chronic kidney disease. He also has a mild descending aortic aneurysm, measured at a stable 4.7 cm over several years. There is a history of single-vessel coronary artery disease with a patent LAD stent on a repeat cardiac catheterization 3 years ago. Serial left ventricular systolic function assessment has recorded level ventricle systolic function is lower limits of normal. Most recent echocardiogram was done at [place] 2-3 months ago, ejection fraction was 45-50%. The patient is chronically short of breath as a result of this obesity, possible sleep apnea syndrome, chronic atrial fibrillation. He is admittedly poorly compliant with his medical therapy including rate control agents and oral anticoagulation, he therefore runs a rapid atrial fibrillation on a consistent basis. He presented to the emergency room at this time with this usual complaint of shortness of breath, EKG was atrial fibrillation with ventricular rate in the 130s. The ECG showed an old anterior myocardial infarction, unchanged from his baseline. Chest x-ray showed mild pulmonary vascular congestion. Cardiology consultation is requested for further management. Past History Past Medical History: atrial fib, CAD, COPD, heart failure, hypertension, renal failure, other (obesity) Past Surgical History: PTCA Medications and Allergies Allergies Allergy/AdvReac Type Severity Reaction Status Date / Time shellfish derived Allergy Itching Verified 06/26/14 13:56 Home Medications Medication Instructions Recorded Confirmed Last Taken Type Lisinopril [Zestril TAB] 40 mg PO QDAY 06/06/15 11/04/16 Unknown History Bisacodyl [Dulcolax suppos] 10 mg [place] QDAY PRN #30 supp.rect 06/15/15 11/04/16 Rx Hydrochlorothiazide [HCTZ] 25 mg PO QDAY tablet 06/15/15 11/04/16 1 Day Ago Rx ~09/24/15 Aspirin [Aspirin BABY CHEW TAB] 81 mg PO QDAY #30 tab.chew 10/12/15 11/04/16 Unknown Rx AtorvaSTATin [Lipitor] 40 mg PO QHS #30 tablet 10/12/15 11/04/16 Unknown Rx Diltiazem Cd [Cardizem CD] 240 mg PO QDAY #30 capsule 10/12/15 11/04/16 Unknown Rx Furosemide [Lasix TAB] 40 mg PO BID #60 tablet 10/12/15 11/04/16 Unknown Rx Divalproex ER [Depakote ER] 300 mg PO TID 11/04/16 11/04/16 Unknown History Docusate Sodium [Colace] 100 mg PO DAILY 11/04/16 11/04/16 Unknown History Metoprolol [Lopressor TAB] 12.5 mg PO TID 11/04/16 11/04/16 Unknown History Nitrofurantoin Edgar/M-Cryst 100 mg PO Q12HR #14 capsule 11/04/16 Unknown Rx [Macrobid CAP] Potassium Chloride 10 meq PO QDAY 11/04/16 11/04/16 Unknown History Warfarin [Coumadin] 4 mg PO DAILY@1700 11/04/16 11/04/16 Unknown History risperiDONE 1.5 mg PO BID 11/04/16 11/04/16 Unknown History traZODone [Desyrel] 50 mg PO QHS 11/04/16 11/04/16 Unknown History Acetaminophen [Acetaminophen TAB] 500 mg PO Q6HR PRN #20 tablet 11/08/16 Unknown Rx Amoxicillin/K Clav Tab [Augmentin 1 tab PO Q12HR #14 tab 11/08/16 Unknown Rx 875 mg] Benzocaine/Menthol [Cepacol Sore 1 each MM Q4H PRN #1 box 11/08/16 Unknown Rx Throat Lozenge] ARIPiprazole 30 mg PO DAILY 07/25/17 07/25/17 Unknown History Aspirin BABY CHEW TAB 81 mg PO DAILY 07/25/17 07/25/17 Unknown History AtorvaSTATin 20 mg PO DAILY 07/25/17 07/25/17 Unknown History Divalproex ER 500 mg PO DAILY 07/25/17 07/25/17 Unknown History Furosemide 40 mg PO DAILY 07/25/17 07/25/17 Unknown History Lisinopril 20 mg PO DAILY 07/25/17 07/25/17 Unknown History Metoprolol 100 mg PO DAILY 07/25/17 07/25/17 Unknown History Tamsulosin 0.4 mg PO DAILY 07/25/17 07/25/17 Unknown History Xarelto 20 mg PO DAILY 07/25/17 07/25/17 Unknown History traZODone 150 mg PO BID PRN 07/25/17 07/25/17 Unknown History Diltiazem Cd [Cardizem CD] 180 mg PO QHS #30 cap 07/27/17 Unknown Rx Metoprolol Xl [Metoprolol 100 mg PO QDAY #30 tablet 07/27/17 Unknown Rx SUCCINATE ER TAB] Active Meds: Active Medications Acetaminophen (Tylenol) 650 mg PO Q4H PRN PRN Reason: Pain MILD(1-3)/Fever >100.5/IRBY Aspirin (Baby Aspirin) 81 mg PO QDAY [facility] Furosemide (Lasix) 40 mg IV BID@0600,1800 PATRICK Last Admin: 08/23/17 07:30 Dose: 40 mg Diltiazem HCl (Cardizem/D5w 100mg/100ml) 100 mg in 100 mls @ 5 mls/hr IV TITR PATRICK; Protocol Last Titration: 08/23/17 05:22 Dose: 10 mg/hr, 10 mls/hr Lisinopril (Zestril) 2.5 mg PO QDAY [facility] Ondansetron HCl (Zofran) 4 mg IV Q8H PRN PRN Reason: Nausea And Vomiting Sodium Chloride (Sodium Chloride Flush Syringe 10 Ml) 10 ml IV BID PATRICK Sodium Chloride (Sodium Chloride Flush Syringe 10 Ml) 10 ml IV PRN PRN PRN Reason: LINE FLUSH Review of Systems Cardiovascular: orthopnea, palpitations, rapid/irregular heart beat, edema, lightheadedness, shortness of breath, no chest pain, no syncope Physical Examination Vital Signs Pulse Resp Pulse Ox 120 H 29 H 96 08/23/17 02:28 08/23/17 02:28 08/23/17 02:28 General appearance: obese HEENT: Positive: PERRL Neck: Positive: neck supple Cardiac: Positive: irregularly irregular Lungs: Positive: Decreased Breath Sounds Neuro: Positive: Grossly Intact Abdomen: Positive: Soft Male genitourinary: Positive: deferred Skin: Positive: Clear Extremities: Present: +1 Edema Results 08/23/17 02:54 08/23/17 02:54 Cardiac Enzymes 08/23/17 Range/Units 05:13 CK-MB (CK-2) 4.4 H (0.0-4.0) ng/mL Coagulation 08/23/17 Range/Units 05:03 PT 15.5 H (12.2-14.9) Sec. INR 1.17 H (0.87-1.13) APTT 29.0 (24.2-36.6) Sec. Lipids 08/23/17 Range/Units 02:54 Triglycerides 69 (2-149) mg/dL Cholesterol 125 (50-199) mg/dL CBC 08/23/17 Range/Units 02:54 WBC 6.5 (4.5-11.0) K/mm3 RBC 4.75 (3.65-5.03) M/mm3 Hgb 10.7 L (11.8-15.2) gm/dl Hct 33.8 L (35.5-45.6) % Plt Count 217 (140-440) K/mm3 Lymph # 1.3 (1.2-5.4) K/mm3 Edgar # 0.8 (0.0-0.8) K/mm3 Eos # 0.1 (0.0-0.4) K/mm3 Baso # 0.0 (0.0-0.1) K/mm3 Comprehensive Metabolic Panel 08/23/17 Range/Units 02:54 Sodium 139 (137-145) mmol/L Potassium 4.3 (3.6-5.0) mmol/L Chloride 100.9 (98-107) mmol/L Carbon Dioxide 26 (22-30) mmol/L BUN 28 H (9-20) mg/dL Creatinine 1.4 (0.8-1.5) mg/dL Glucose 89 (75-100) mg/dL Calcium 9.3 (8.4-10.2) mg/dL EKG interpretations - Telemetry EKG Rhythm: Atrial Fibrillation Assessment and Plan - Patient Problems (1) Atrial fibrillation with RVR Current Visit: Yes Status: Acute Plan to address problem: We will treat with beta blockers, diltiazem and digitalis therapy as needed to achieve optimal rate control of atrial fibrillation. The patient is poorly compliant with oral anticoagulation, which will be reinitiated for stroke prophylaxis. (2) Heart failure with preserved ejection fraction Current Visit: Yes Status: Acute Plan to address problem: Diuretic therapy, risk factor modification and optimal blood pressure control.
[2017-08-23 11:26] LABS: Creatine Kinase MB 4.4 ng/mL (0.0-4.0)
[2017-08-23] MEDS: BABY ASPIRIN PO SCH (11:30)
[2017-08-23] MEDS: ZESTRIL PO SCH (11:30)
--- NOTE | 2017-08-23 11:55 | Progress Note ---
Assessment and Plan Assessment and plan: Mr. Hadley 72-year-old man with history of bipolar disorder, hypertension, bph, obesity, chronic atrial fibrillation on Xarelto, medical noncompliance, prior deep vein thrombosis, suspected CHRIS, chronic kidney disease 3, mild descending aortic aneurysm, measured at a stable 4.7 cm over several years and single- vessel coronary artery disease with a patent LAD stent on a repeat cardiac catheterization 3 years ago. Serial left ventricular systolic function assessment has recorded level ventricle systolic function is lower limits of normal. Most recent echocardiogram was done at [place] 2-3 months ago, ejection fraction was 45-50%. He presented to the emergency room at this time with this usual complaint of shortness of breath, EKG was atrial fibrillation with ventricular rate in the 130s. The ECG showed an old anterior myocardial infarction, unchanged from his baseline. pCXR showed mild pulmonary vascular congestion. -A Fib with rvr: in ICU on Cardizem drip, consulted Cardiology who ordered digoxin but patient pulled his iv line out. -Acute on chronic diastolic exacerbation: treat with lasix, Cardiology to see -Urinary retention with high PVR and unable to pass merida: consulted and d/w Dr. Ho -Coronary artery disease -Hypertension: treat with antihypertensives -CKD 3: monitor closely -Thoracic aneurysmm by history, followed by Cardiology -Bipolar disorder with exacerbation: restraints for safety, give stat one dose on IM haldol x 1 CCT 35 minutes History Interval history: Patient was seen and examined. Follow-up on current diagnosis of sob which is still present. Patient denies any chest pain, nausea/vomiting or severe headaches. He pulled out his iv line, will not stay in bed, fall risk. Education done. In ICU on Cardizem drip. Imaging, nursing note, chart, labs and old chart reviewed. Discussed with patient. Hospitalist Physical - Physical exam Narrative exam: GEN: ill appearing, mild respiratory distress, Awake, Alert, Orientated x 3 HEENT: NCAT, EOMI, PERRL, OP Clear NECK: supple, no adenopathy, no thyromegaly, no JVD CVS/HEART: irregular irregular, normal S1S2, pulses present bilaterally CHEST/LUNGS: coarse bs bilateral Symmetrical chest expansion, good air entry bilaterally GI/Abdomen: soft, NTND, good bowel sounds, no guarding or rebound /Bladder: no suprapubic tenderness, no CVA or paraspinal tenderness EXT/Skin: no c/c/e, no obvious rash MSK: FROM x 4 Neuro: CN 2-12 grossly intact, no new focal deficits Psych: confused - Constitutional Vitals: Temp Pulse Resp BP Pulse Ox 98.4 F 120 H 25 H 132/81 97 08/23/17 07:57 08/23/17 07:04 08/23/17 05:31 08/23/17 04:45 08/23/17 07:40 General appearance: Present: obese Results - Labs CBC & Chem 7: 08/23/17 02:54 08/23/17 02:54 Labs: Laboratory Last Values WBC 6.5 K/mm3 (4.5-11.0) 08/23/17 02:54 RBC 4.75 M/mm3 (3.65-5.03) 08/23/17 02:54 Hgb 10.7 gm/dl (11.8-15.2) L 08/23/17 02:54 Hct 33.8 % (35.5-45.6) L 08/23/17 02:54 MCV 71 fl (84-94) L 08/23/17 02:54 MCH 23 pg (28-32) L 08/23/17 02:54 MCHC 32 % (32-34) 08/23/17 02:54 RDW 22.8 % (13.2-15.2) H 08/23/17 02:54 Plt Count 217 K/mm3 (140-440) 08/23/17 02:54 Lymph % (Auto) 20.5 % (13.4-35.0) 08/23/17 02:54 D[place]key % (Auto) 12.4 % (0.0-7.3) H 08/23/17 02:54 Eos % (Auto) 2.1 % (0.0-4.3) 08/23/17 02:54 Baso % (Auto) 0.6 % (0.0-1.8) 08/23/17 02:54 Lymph # 1.3 K/mm3 (1.2-5.4) 08/23/17 02:54 Dickey # 0.8 K/mm3 (0.0-0.8) 08/23/17 02:54 Eos # 0.1 K/mm3 (0.0-0.4) 08/23/17 02:54 Baso # 0.0 K/mm3 (0.0-0.1) 08/23/17 02:54 Seg Neutrophils % 64.4 % (40.0-70.0) 08/23/17 02:54 Seg Neutrophils # 4.2 K/mm3 (1.8-7.7) 08/23/17 02:54 PT 15.5 Sec. (12.2-14.9) H 08/23/17 05:03 INR 1.17 (0.87-1.13) H 08/23/17 05:03 APTT 29.0 Sec. (24.2-36.6) 08/23/17 05:03 Sodium 139 mmol/L (137-145) 08/23/17 02:54 Potassium 4.3 mmol/L (3.6-5.0) 08/23/17 02:54 Chloride 100.9 mmol/L (98-107) 08/23/17 02:54 Carbon Dioxide 26 mmol/L (22-30) 08/23/17 02:54 Anion Gap 16 mmol/L 08/23/17 02:54 BUN 28 mg/dL (9-20) H 08/23/17 02:54 Creatinine 1.4 mg/dL (0.8-1.5) 08/23/17 02:54 Estimated GFR > 60 ml/min 08/23/17 02:54 BUN/Creatinine Ratio 20 % 08/23/17 02:54 Glucose 89 mg/dL (75-100) 08/23/17 02:54 Calcium 9.3 mg/dL (8.4-10.2) 08/23/17 02:54 Total Creatine Kinase 155 units/L (55-170) 08/23/17 10:56 CK-MB (CK-2) 4.4 ng/mL (0.0-4.0) H 08/23/17 10:56 CK-MB (CK-2) Rel Index 2.8 (0-4) 08/23/17 10:56 Troponin T 0.077 ng/mL (0.00-0.029) H D 08/23/17 10:56 NT-Pro-B Natriuret Pep 69451 pg/mL (0-900) H 08/23/17 02:54 Triglycerides 69 mg/dL (2-149) 08/23/17 02:54 Cholesterol 125 mg/dL (50-199) 08/23/17 02:54 LDL Cholesterol Direct 77 mg/dL (50-130) 08/23/17 02:54
[2017-08-23] MEDS: LOPRESSOR PO SCH ×2 (12:44→20:25)
[2017-08-23] MEDS: K-DUR PO SCH (12:44)
[2017-08-23] MEDS ORDERED: GEODON IM ONE (13:04)
[2017-08-23] MEDS ORDERED: DULCOLAX PR ONE (13:06)
[2017-08-23] MEDS ORDERED: SUBLIMAZE IM ONE (13:51)
[2017-08-23] MEDS ORDERED: SUBLIMAZE IV ONE (13:51)
[2017-08-23] MEDS ORDERED: SUBLIMAZE ONE (13:52)
[2017-08-23] MEDS ORDERED: VERSED IV ONE (13:52)
[2017-08-23] MEDS ORDERED: VERSED IM ONE (13:52)
[2017-08-23] MEDS ORDERED: VERSED ONE (13:52)
[2017-08-23] MEDS ORDERED: WATER FOR INJ (PF) 10 ML ONE (13:58)
[2017-08-23] MEDS: ATROVENT IH SCH ×2 (15:00→19:47)
--- NOTE | 2017-08-23 15:10 | Consultation ---
History of Present Illness - Reason for Consult Consult date: 08/23/17 Afib with RVR, CHF exacerbation Requesting physician: BLAZE SKINNER - History of Present Illness 72 y/o male, altered with known CHF, admitted with Afib with RVR and CHF exacerbation. Apparently noncompliant based on CM from facility where patient is. Awake and alert, in mild distress. Has lost all access and needs a central line. Remainder is not able to be obtained. Past History Past Medical History: atrial fib, CAD, COPD, heart failure, hypertension, renal failure, other (obesity) Past Surgical History: PTCA Medications and Allergies Allergies Allergy/AdvReac Type Severity Reaction Status Date / Time shellfish derived Allergy Itching Verified 06/26/14 13:56 Home Medications Medication Instructions Recorded Confirmed Last Taken Type Lisinopril [Zestril TAB] 40 mg PO QDAY 06/06/15 11/04/16 Unknown History Bisacodyl [Dulcolax suppos] 10 mg [place] QDAY PRN #30 supp.rect 06/15/15 11/04/16 Rx Hydrochlorothiazide [HCTZ] 25 mg PO QDAY tablet 06/15/15 11/04/16 1 Day Ago Rx ~09/24/15 Aspirin [Aspirin BABY CHEW TAB] 81 mg PO QDAY #30 tab.chew 10/12/15 11/04/16 Unknown Rx AtorvaSTATin [Lipitor] 40 mg PO QHS #30 tablet 10/12/15 11/04/16 Unknown Rx Diltiazem Cd [Cardizem CD] 240 mg PO QDAY #30 capsule 10/12/15 11/04/16 Unknown Rx Furosemide [Lasix TAB] 40 mg PO BID #60 tablet 10/12/15 11/04/16 Unknown Rx Divalproex ER [Depakote ER] 300 mg PO TID 11/04/16 11/04/16 Unknown History Docusate Sodium [Colace] 100 mg PO DAILY 11/04/16 11/04/16 Unknown History Metoprolol [Lopressor TAB] 12.5 mg PO TID 11/04/16 11/04/16 Unknown History Nitrofurantoin [place]/M-Cryst 100 mg PO Q12HR #14 capsule 11/04/16 Unknown Rx [Macrobid CAP] Potassium Chloride 10 meq PO QDAY 11/04/16 11/04/16 Unknown History Warfarin [Coumadin] 4 mg PO DAILY@1700 11/04/16 11/04/16 Unknown History risperiDONE 1.5 mg PO BID 11/04/16 11/04/16 Unknown History traZODone [Desyrel] 50 mg PO QHS 11/04/16 11/04/16 Unknown History Acetaminophen [Acetaminophen TAB] 500 mg PO Q6HR PRN #20 tablet 11/08/16 Unknown Rx Amoxicillin/K Clav Tab [Augmentin 1 tab PO Q12HR #14 tab 11/08/16 Unknown Rx 875 mg] Benzocaine/Menthol [Cepacol Sore 1 each MM Q4H PRN #1 box 11/08/16 Unknown Rx Throat Lozenge] ARIPiprazole 30 mg PO DAILY 07/25/17 07/25/17 Unknown History Aspirin BABY CHEW TAB 81 mg PO DAILY 07/25/17 07/25/17 Unknown History AtorvaSTATin 20 mg PO DAILY 07/25/17 07/25/17 Unknown History Divalproex ER 500 mg PO DAILY 07/25/17 07/25/17 Unknown History Furosemide 40 mg PO DAILY 07/25/17 07/25/17 Unknown History Lisinopril 20 mg PO DAILY 07/25/17 07/25/17 Unknown History Metoprolol 100 mg PO DAILY 07/25/17 07/25/17 Unknown History Tamsulosin 0.4 mg PO DAILY 07/25/17 07/25/17 Unknown History Xarelto 20 mg PO DAILY 07/25/17 07/25/17 Unknown History traZODone 150 mg PO BID PRN 07/25/17 07/25/17 Unknown History Diltiazem Cd [Cardizem CD] 180 mg PO QHS #30 cap 07/27/17 Unknown Rx Metoprolol Xl [Metoprolol 100 mg PO QDAY #30 tablet 07/27/17 Unknown Rx SUCCINATE ER TAB] Active Meds: Active Medications Acetaminophen (Tylenol) 650 mg PO Q4H PRN PRN Reason: Pain MILD(1-3)/Fever >100.5/IRBY Aspirin (Baby Aspirin) 81 mg PO QDAY [facility] Last Admin: 08/23/17 11:30 Dose: 81 mg Digoxin (Lanoxin) 0.25 mg IV Q6HR PATRICK Stop: 08/23/17 18:01 Digoxin (Lanoxin) 0.25 mg PO DAILY@1700 [facility] Diltiazem HCl (Cardizem) 90 mg PO Q8HR [facility] Furosemide (Lasix) 40 mg IV BID@0600,1800 [facility] Last Admin: 08/23/17 07:30 Dose: 40 mg Ipratropium [place] (Atrovent) 0.5 mg IH TIDRT [facility] Last Admin: 08/23/17 15:00 Dose: Not Given Lisinopril (Zestril) 2.5 mg PO QDAY [facility] Last Admin: 08/23/17 11:30 Dose: 2.5 mg Metolazone (Zaroxolyn) 5 mg PO QDAY [facility] Metoprolol Tartrate (Lopressor) 50 mg PO Q6H [facility] Last Admin: 08/23/17 12:44 Dose: 50 mg Potassium Chloride (K-Dur) 20 meq PO QDAY [facility] Last Admin: 08/23/17 12:44 Dose: 20 meq Rivaroxaban (Xarelto) 20 mg PO DAILY@1130 [facility]; Protocol Sodium Chloride (Sodium Chloride Flush Syringe 10 Ml) 10 ml IV BID [facility] Last Admin: 08/23/17 10:30 Dose: 10 ml Sodium Chloride (Sodium Chloride Flush Syringe 10 Ml) 10 ml IV PRN PRN PRN Reason: LINE FLUSH Review of Systems ROS unobtainable: due to mental status Exam - Constitutional Vitals: Temp Pulse Resp BP Pulse Ox 98.1 F 120 H 25 H 132/81 97 08/23/17 12:00 08/23/17 07:04 08/23/17 05:31 08/23/17 04:45 08/23/17 07:40 General appearance: Present: mild distress, obese, disheveled - EENT Eyes: Present: PERRL, EOM intact ENT: hearing intact, poor dentition - Neck Neck: Present: supple, other (JVD present) - Respiratory Respiratory effort: labored Respiratory: bilateral: diminished, rales (bilateral) - Cardiovascular Rhythm: irregularly irregular Heart Sounds: Present: S1 & S2 - Extremities Extremities: no ischemia Extremity abnormal: edema Peripheral Pulses: within normal limits - Abdominal General gastrointestinal: Present: soft, non-tender, normal bowel sounds Male genitourinary: Present: deferred - Rectal Rectal Exam: deferred - Musculoskeletal Musculoskeletal: strength equal bilaterally - Psychiatric Psychiatric: agitated - Neurologic Neurologic: moves all extremities Results - Labs CBC & Chem 7: 08/23/17 02:54 08/23/17 02:54 Labs: Abnormal lab results 08/23/17 08/23/17 08/23/17 Range/Units 02:54 02:54 02:54 Hgb 10.7 L (11.8-15.2) gm/dl Hct 33.8 L (35.5-45.6) % MCV 71 L (84-94) fl MCH 23 L (28-32) pg RDW 22.8 H (13.2-15.2) % Camp % (Auto) 12.4 H (0.0-7.3) % PT (12.2-14.9) Sec. INR (0.87-1.13) BUN 28 H (9-20) mg/dL CK-MB (CK-2) (0.0-4.0) ng/mL Troponin T 0.077 H (0.00-0.029) ng/mL NT-Pro-B Natriuret Pep 23276 H (0-900) pg/mL 08/23/17 08/23/17 08/23/17 Range/Units 05:03 05:13 10:56 Hgb (11.8-15.2) gm/dl Hct (35.5-45.6) % MCV (84-94) fl MCH (28-32) pg RDW (13.2-15.2) % Camp % (Auto) (0.0-7.3) % PT 15.5 H (12.2-14.9) Sec. INR 1.17 H (0.87-1.13) BUN (9-20) mg/dL CK-MB (CK-2) 4.4 H 4.4 H (0.0-4.0) ng/mL Troponin T 0.062 H 0.077 H D (0.00-0.029) ng/mL NT-Pro-B Natriuret Pep (0-900) pg/mL - Imaging and Cardiology Chest x-ray: image reviewed (Cardiomegaly, with pulmonary vascular congestion) Assessment and Plan 72 y/o male with known CHF and Afib admitted with CHF exacerbation 1. Placed right IJ 2. Agree with diuresis 3. Rate control per cards 4. Supplemental O2 to keep sats >88% CCT 31 minutes.
--- NOTE | 2017-08-23 15:23 | Event Note ---
Date: 08/23/17 Reviewed CXR just now. Central line in place but did coil on itself. Will use for now as no pressors are needed. Can get picc vs midline tomorrow. Spoke with nurse about this as well.
--- NOTE | 2017-08-23 15:40 | XRay Report ---
FINAL REPORT EXAM: XR CHEST 1V AP HISTORY: cental line verification TECHNIQUE: Single, portable chest x-ray. PRIORS: One day previous. FINDINGS: Right IJ central venous catheter is looped over the SVC, with tip extending cephalad and projected over right lung apex, and should be repositioned. Cardiac silhouette stable. Lungs without significant interval change. No apparent pneumothorax. IMPRESSION: 1. Right IJ central venous catheter position as reported. 2. Otherwise, stable.
[2017-08-23] MEDS: LANOXIN IV SCH (16:26)
[2017-08-23] MEDS: ZAROXOLYN PO SCH (18:42)
[2017-08-23] MEDS: CARDIZEM PO SCH ×2 (18:42→22:32)
[2017-08-23] MEDS: XARELTO PO SCH (18:43)
[2017-08-23] MEDS: ATIVAN IV PRN (19:42)
[2017-08-23] MEDS ORDERED: NITRO-BID 2% TP ONE (21:00)
--- NOTE | 2017-08-24 00:06 | Consultation ---
HISTORY OF PRESENT ILLNESS: The patient is a gentleman in severe respiratory distress and urinary retention. Catheter was tried this morning, he has been anuric since. His bladder is distended. He is in severe pain. He now presents for urological consultation. PAST MEDICAL HISTORY: Heart disease and severe COPD. PHYSICAL EXAMINATION: GENERAL: He is in severe respiratory distress. His bladder is palpable to the umbilicus and he is moderately overweight. GENITALIA: He is circumcised. Testes mildly atrophic. There is some question of history of BPH. A catheter was tried early this morning with blood and clots. Flexible cystoscopy after we tried a wire would not go showed stones in the urethra. I am not sure whether or not he has had previous prostate cancer seed implantation, a lots of stones with false passages. At this point, there was no way. He is in severe pain. We placed a spinal needle. Clear urine was obtained. I made a tiny incision and a suprapubic cystostomy was obtained and 2000 mL of minimally tinged urine was obtained. The patient tolerated the procedure well. He is in guarded condition. JOB# [id number] HAYDEN/CARLOS
[2017-08-24] MEDS ORDERED: NACL 0.9% IR ONE (00:24)
[2017-08-24] MEDS ORDERED: STERILE WATER IV ONE (00:24)
[2017-08-24] MEDS: LOPRESSOR PO SCH ×4 (01:53→20:00)
[2017-08-24 05:00] LABS: Basophils % (Auto) 0.2 % (0.0-1.8); Hematocrit 34.4 % (35.5-45.6); Hemoglobin 11.1 gm/dl (11.8-15.2); Lymphocytes # (Auto) 0.6 K/mm3 (1.2-5.4); Lymphocytes % (Auto) 5.6 % (13.4-35.0); Mean Corpuscular HGB Conc 32 % (32-34); Mean Corpuscular Volume 71 fl (84-94); Monocytes % (Auto) 9.4 % (0.0-7.3); Platelet Count 207 K/mm3 (140-440); Red Blood Count 4.86 M/mm3 (3.65-5.03)
[2017-08-24 05:12] LABS: Calcium 8.7 mg/dL (8.4-10.2)
[2017-08-24] MEDS: CARDIZEM PO SCH ×3 (05:13→21:41)
[2017-08-24] MEDS: LASIX IV SCH ×3 (05:14→17:56)
[2017-08-24 05:23] LABS: Mean Corpuscular Hemoglobin 23 pg (28-32); Red Cell Distribution Width 22.5 % (13.2-15.2)
[2017-08-24] MEDS: ATROVENT IH SCH ×3 (09:00→19:52)
[2017-08-24] MEDS: K-DUR PO SCH (09:00)
[2017-08-24] MEDS: BABY ASPIRIN PO SCH (09:05)
[2017-08-24] MEDS: ZAROXOLYN PO SCH (09:05)
[2017-08-24] MEDS: SODIUM CHLORIDE FLUSH SYRINGE 10 ML IV SCH ×2 (09:05→21:43)
[2017-08-24] MEDS: LANOXIN IV SCH (09:08)
[2017-08-24] MEDS: ZESTRIL PO SCH (09:10)
--- NOTE | 2017-08-24 09:42 | Progress Note ---
Assessment and Plan 72 y/o male with known CHF and Afib admitted with CHF exacerbation 1. Needs picc line and removal of right IJ 2. Continue Diuresis 3. Positive pressure PRN 4. Psych consult for evaluation and help with medication 5. Rate control per cards. CCT 31 minutes. Subjective Date of service: 08/24/17 Interval history: patient seen by urology and had suprapubic catheter placed on last evening. Blood tinged urine seen in back this am. Rate is improved as well as BP. No family at bedside. Breathing status has improved. When I was called by nursing last night, I placed nitro past on the chest, to my knowledge he did not have a catheter at the time so I did not order lasix to help with breathing. Objective - Constitutional Vitals: Vital Signs - 12hr 08/23/17 08/23/17 08/23/17 21:41 21:51 22:00 Temperature Pulse Rate 85 81 109 H Pulse Rate [ Anterior Bilateral Throughout] Pulse Rate [ From Monitor] Respiratory 25 H 19 Rate Respiratory Rate [Anterior Bilateral Throughout] Blood Pressure 178/89 178/89 O2 Sat by Pulse 96 99 Oximetry 08/23/17 08/23/17 08/23/17 22:01 22:11 22:21 Temperature Pulse Rate 66 73 Pulse Rate [ Anterior Bilateral Throughout] Pulse Rate [ From Monitor] Respiratory 18 17 17 Rate Respiratory Rate [Anterior Bilateral Throughout] Blood Pressure 165/74 165/74 165/74 O2 Sat by Pulse 92 100 100 Oximetry 08/23/17 08/23/17 08/23/17 22:30 22:32 22:41 Temperature Pulse Rate 63 65 65 Pulse Rate [ Anterior Bilateral Throughout] Pulse Rate [ From Monitor] Respiratory 16 18 Rate Respiratory Rate [Anterior Bilateral Throughout] Blood Pressure 108/50 165/74 108/50 O2 Sat by Pulse 100 99 Oximetry 08/23/17 08/23/17 08/23/17 22:51 23:00 23:11 Temperature 98.7 F Pulse Rate 75 71 86 Pulse Rate [ Anterior Bilateral Throughout] Pulse Rate [ 76 From Monitor] Respiratory 19 17 22 Rate Respiratory Rate [Anterior Bilateral Throughout] Blood Pressure 108/50 120/61 120/61 O2 Sat by Pulse 100 98 100 Oximetry 08/23/17 08/23/17 08/23/17 23:21 23:29 23:30 Temperature Pulse Rate 79 76 72 Pulse Rate [ Anterior Bilateral Throughout] Pulse Rate [ From Monitor] Respiratory 19 21 19 Rate Respiratory Rate [Anterior Bilateral Throughout] Blood Pressure 120/61 120/61 131/51 O2 Sat by Pulse 100 100 100 Oximetry 08/23/17 08/23/17 08/24/17 23:41 23:50 00:00 Temperature Pulse Rate 86 78 84 Pulse Rate [ Anterior Bilateral Throughout] Pulse Rate [ From Monitor] Respiratory 21 22 20 Rate Respiratory Rate [Anterior Bilateral Throughout] Blood Pressure 131/51 131/51 121/57 O2 Sat by Pulse 100 100 100 Oximetry 08/24/17 08/24/17 08/24/17 00:10 00:20 00:30 Temperature Pulse Rate 86 89 85 Pulse Rate [ Anterior Bilateral Throughout] Pulse Rate [ From Monitor] Respiratory 17 17 16 Rate Respiratory Rate [Anterior Bilateral Throughout] Blood Pressure 131/51 131/51 130/62 O2 Sat by Pulse 100 100 100 Oximetry 08/24/17 08/24/17 08/24/17 00:40 00:50 01:00 Temperature Pulse Rate 93 H 85 92 H Pulse Rate [ Anterior Bilateral Throughout] Pulse Rate [ 85 From Monitor] Respiratory 16 16 17 Rate Respiratory Rate [Anterior Bilateral Throughout] Blood Pressure 121/57 121/57 127/65 O2 Sat by Pulse 100 100 100 Oximetry 08/24/17 08/24/17 08/24/17 01:53 03:00 03:15 Temperature 99.4 F Pulse Rate 97 H Pulse Rate [ Anterior Bilateral Throughout] Pulse Rate [ 95 H From Monitor] Respiratory 18 Rate Respiratory Rate [Anterior Bilateral Throughout] Blood Pressure 120/63 O2 Sat by Pulse 100 Oximetry 08/24/17 08/24/17 08/24/17 03:51 05:00 05:13 Temperature Pulse Rate 118 H 100 H Pulse Rate [ Anterior Bilateral Throughout] Pulse Rate [ 106 H From Monitor] Respiratory 23 18 Rate Respiratory Rate [Anterior Bilateral Throughout] Blood Pressure 115/58 127/66 O2 Sat by Pulse 100 100 Oximetry 08/24/17 08/24/17 08/24/17 08:00 09:00 09:13 Temperature 97.7 F Pulse Rate Pulse Rate [ 107 H 106 H Anterior Bilateral Throughout] Pulse Rate [ 109 H From Monitor] Respiratory 16 Rate Respiratory 18 16 Rate [Anterior Bilateral Throughout] Blood Pressure O2 Sat by Pulse 100 Oximetry 08/24/17 09:19 Temperature Pulse Rate Pulse Rate [ Anterior Bilateral Throughout] Pulse Rate [ From Monitor] Respiratory Rate Respiratory Rate [Anterior Bilateral Throughout] Blood Pressure O2 Sat by Pulse 99 Oximetry General appearance: Present: no acute distress, obese, disheveled - EENT Eyes: PERRL, EOM intact ENT: hearing intact - Neck Neck: supple - Respiratory Respiratory effort: other (mildly labored) Respiratory: bilateral: rales - Breasts Breasts: deferred - Cardiovascular Rhythm: irregularly irregular Extremities: no ischemia Extremity abnormal: edema - Gastrointestinal General gastrointestinal: Present: soft, non-tender Rectal Exam: deferred - Genitourinary Male genitourinary: deferred - Integumentary Integumentary: warm, dry - Musculoskeletal Musculoskeletal: strength equal bilaterally - Neurologic Neurologic: CNII-XII intact, moves all extremities - Psychiatric Psychiatric: agitated (at times, but calm now) - Labs CBC & Chem 7: 08/24/17 04:00 08/24/17 04:00 Labs: Abnormal lab results 08/23/17 08/23/17 08/24/17 Range/Units 10:56 20:28 04:00 Hgb 11.1 L (11.8-15.2) gm/dl Hct 34.4 L (35.5-45.6) % MCV 71 L (84-94) fl MCH 23 L (28-32) pg RDW 22.5 H (13.2-15.2) % Lymph % (Auto) 5.6 L (13.4-35.0) % [place] % (Auto) 9.4 H (0.0-7.3) % Lymph # 0.6 L (1.2-5.4) K/mm3 [place] # 1.0 H (0.0-0.8) K/mm3 Seg Neutrophils % 84.8 H (40.0-70.0) % Seg Neutrophils # 9.2 H (1.8-7.7) K/mm3 POC ABG pO2 52 L (80-105) Sodium (137-145) mmol/L BUN (9-20) mg/dL Creatinine (0.8-1.5) mg/dL CK-MB (CK-2) 4.4 H (0.0-4.0) ng/mL Troponin T 0.077 H D (0.00-0.029) ng/mL 08/24/17 Range/Units 04:00 Hgb (11.8-15.2) gm/dl Hct (35.5-45.6) % MCV (84-94) fl MCH (28-32) pg RDW (13.2-15.2) % Lymph % (Auto) (13.4-35.0) % [place] % (Auto) (0.0-7.3) % Lymph # (1.2-5.4) K/mm3 [place] # (0.0-0.8) K/mm3 Seg Neutrophils % (40.0-70.0) % Seg Neutrophils # (1.8-7.7) K/mm3 POC ABG pO2 (80-105) Sodium 146 H D (137-145) mmol/L BUN 35 H (9-20) mg/dL Creatinine 1.8 H (0.8-1.5) mg/dL CK-MB (CK-2) (0.0-4.0) ng/mL Troponin T (0.00-0.029) ng/mL
[2017-08-24] MEDS ORDERED: LOPRESSOR IV ONE (10:30)
[2017-08-24] MEDS: XARELTO PO SCH (11:53)
--- NOTE | 2017-08-24 13:53 | XRay Report ---
AP CHEST: HISTORY: Left arm PICC placement A left arm PICC has been inserted which terminates in the mid to lower SVC. The right IJ venous catheter is unchanged and appears to be coiled upon itself in the SVC. Underlying CHF has improved by 10-20% since 08/23/17. IMPRESSION: Left arm PICC as described.
[2017-08-24 14:04] LABS: Chol/HDL Ratio 3.47 %
--- NOTE | 2017-08-24 14:10 | Progress Note ---
Assessment and Plan - Patient Problems (1) Atrial fibrillation with RVR Current Visit: Yes Status: Acute Plan to address problem: Optimal rate control of atrial fibrillation, continue medical therapy. Oral anticoagulation. (2) Heart failure with preserved ejection fraction Current Visit: Yes Status: Acute Plan to address problem: Medical therapy for heart failure with preserved ejection fraction. Subjective Date of service: 08/24/17 Interval history: Patient is comfortable, no new cardiac complaints. On telemetry, his atrial fibrillation rate is much better controlled, 90s to 100s. Blood pressure is 106 systolic. Objective Vital Signs Temp Pulse Pulse Pulse Resp Resp BP 08/24/17 12:33 106 H 16 08/24/17 12:00 97.6 F 08/24/17 10:08 133 H 106/72 08/24/17 09:19 08/24/17 09:13 106 H 16 08/24/17 09:00 107 H 18 08/24/17 08:00 97.7 F 109 H 16 08/24/17 05:13 100 H 127/66 08/24/17 05:00 106 H 18 08/24/17 03:51 118 H 23 115/58 08/24/17 03:15 99.4 F 08/24/17 03:00 95 H 18 08/24/17 01:53 97 H 120/63 08/24/17 01:00 92 H 85 17 127/65 08/24/17 00:50 85 16 121/57 08/24/17 00:40 93 H 16 121/57 08/24/17 00:30 85 16 130/62 08/24/17 00:20 89 17 131/51 08/24/17 00:10 86 17 131/51 08/24/17 00:00 84 20 121/57 08/23/17 23:50 78 22 131/51 08/23/17 23:41 86 21 131/51 08/23/17 23:30 72 19 131/51 08/23/17 23:29 76 21 120/61 08/23/17 23:21 79 19 120/61 08/23/17 23:11 98.7 F 86 22 120/61 18 23:00 71 76 17 120/61 18 22:51 75 19 108/50 18 22:41 65 18 108/50 07/04/18 22:32 65 165/74 /18 22:30 63 16 108/50 18 22:21 73 17 165/74 /18 22:11 66 17 165/74 18 22:01 18 165/74 18 22:00 109 H 08/23/17 21:51 81 19 178/89 18 21:41 85 25 H 178/89 08/23/17 21:31 95 H 34 H 178/89 08/23/17 21:21 93 H 27 H 147/119 18 21:11 86 26 H 147/119 18 21:01 119 H 29 H 147/119 18 21:00 109 H 08/23/17 20:51 81 29 H 175/91 08/23/17 20:41 97 H 30 H 175/91 08/23/17 20:31 97 H 35 H 175/91 18 20:25 109 H 203/81 18 20:23 103 H 30 H 203/81 18 20:21 113 H 42 H 203/81 18 20:11 98 H 35 H 203/81 18 20:01 119 H 39 H 203/81 /18 20:00 98.4 F 08/23/17 19:57 123 H 26 H 18 19:51 118 H 36 H 218/122 /18 19:47 123 H 28 H 18 19:46 08/23/17 19:41 104 H 37 H 218/122 /18 19:31 131 H 20 218/122 /18 19:21 144 H 19 160/119 /18 19:11 139 H 20 160/119 /18 19:01 139 H 24 160/119 /18 18:51 127 H 26 H 184/94 /18 18:42 144 H /18 18:41 142 H 39 H 184/94 18 18:31 118 H 36 H 172/109 18 18:21 126 H 30 H 172/109 /18 18:11 139 H 14 171/115 07/04/18 18:01 126 H 29 H 171/115 08/23/17 17:51 141 H 14 172/109 08/23/17 17:41 130 H 22 172/109 08/23/17 17:30 172/109 08/23/17 17:20 164/100 08/23/17 17:11 120 H 35 H 170/105 08/23/17 17:09 08/23/17 17:00 122 H 20 170/105 08/23/17 16:51 104 H 25 H 163/95 08/23/17 16:26 114 H 08/23/17 16:00 98.6 F Pulse Ox 08/24/17 12:33 98 08/24/17 12:00 08/24/17 10:08 08/24/17 09:19 99 08/24/17 09:13 08/24/17 09:00 08/24/17 08:00 100 08/24/17 05:13 08/24/17 05:00 100 08/24/17 03:51 100 08/24/17 03:15 08/24/17 03:00 100 08/24/17 01:53 08/24/17 01:00 100 08/24/17 00:50 100 08/24/17 00:40 100 08/24/17 00:30 100 08/24/17 00:20 100 08/24/17 00:10 100 08/24/17 00:00 100 08/23/17 23:50 100 08/23/17 23:41 100 08/23/17 23:30 100 08/23/17 23:29 100 08/23/17 23:21 100 08/23/17 23:11 100 08/23/17 23:00 98 08/23/17 22:51 100 08/23/17 22:41 99 08/23/17 22:32 08/23/17 22:30 100 08/23/17 22:21 100 08/23/17 22:11 100 08/23/17 22:01 92 08/23/17 22:00 08/23/17 21:51 99 08/23/17 21:41 96 08/23/17 21:31 99 08/23/17 21:21 100 08/23/17 21:11 100 08/23/17 21:01 99 08/23/17 21:00 08/23/17 20:51 100 08/23/17 20:41 100 08/23/17 20:31 99 08/23/17 20:25 08/23/17 20:23 98 08/23/17 20:21 75 L 08/23/17 20:11 94 08/23/17 20:01 98 08/23/17 20:00 08/23/17 19:57 08/23/17 19:51 92 08/23/17 19:47 08/23/17 19:46 98 08/23/17 19:41 08/23/17 19:31 100 08/23/17 19:21 94 08/23/17 19:11 94 08/23/17 19:01 90 08/23/17 18:51 08/23/17 18:42 08/23/17 18:41 08/23/17 18:31 08/23/17 18:21 100 08/23/17 18:11 08/23/17 18:01 08/23/17 17:51 69 L 08/23/17 17:41 96 08/23/17 17:30 08/23/17 17:20 82 L 08/23/17 17:11 08/23/17 17:09 95 08/23/17 17:00 95 08/23/17 16:51 96 08/23/17 16:26 08/23/17 16:00 - Physical Examination General: No Apparent Distress HEENT: Positive: PERRL Neck: Positive: neck supple Cardiac: Positive: irregularly irregular Lungs: Positive: Decreased Breath Sounds Neuro: Positive: Grossly Intact Abdomen: Positive: Soft Skin: Positive: Clear Extremities: Present: +1 Edema - Labs and Meds Lipids 08/23/17 Range/Units 02:54 HDL Cholesterol 36 L (40-59) mg/dL Cholesterol/HDL Ratio 3.47 % CBC 08/24/17 Range/Units 04:00 WBC 10.9 (4.5-11.0) K/mm3 RBC 4.86 (3.65-5.03) M/mm3 Hgb 11.1 L (11.8-15.2) gm/dl Hct 34.4 L (35.5-45.6) % Plt Count 207 (140-440) K/mm3 Lymph # 0.6 L (1.2-5.4) K/mm3 [place] # 1.0 H (0.0-0.8) K/mm3 Eos # 0.0 (0.0-0.4) K/mm3 Baso # 0.0 (0.0-0.1) K/mm3 Comprehensive Metabolic Panel 08/24/17 Range/Units 04:00 Sodium 146 H D (137-145) mmol/L Potassium 4.5 (3.6-5.0) mmol/L Chloride 104.6 (98-107) mmol/L Carbon Dioxide 30 (22-30) mmol/L BUN 35 H (9-20) mg/dL Creatinine 1.8 H (0.8-1.5) mg/dL Glucose 100 (75-100) mg/dL Calcium 8.7 (8.4-10.2) mg/dL - Imaging and Cardiology EKG: image reviewed
--- NOTE | 2017-08-24 14:49 | Progress Note ---
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 oprev surgery keep tube taped and secured Subjective Date of service: 08/24/17 Principal diagnosis: retention Objective - Constitutional Vitals: Vital Signs - 12hr 08/24/17 08/24/17 08/24/17 03:00 03:15 03:51 Temperature 99.4 F Pulse Rate 118 H Pulse Rate [ Anterior Bilateral Throughout] Pulse Rate [ 95 H From Monitor] Respiratory 18 23 Rate Respiratory Rate [Anterior Bilateral Throughout] Blood Pressure 115/58 O2 Sat by Pulse 100 100 Oximetry 08/24/17 08/24/17 08/24/17 05:00 05:13 08:00 Temperature 97.7 F Pulse Rate 100 H Pulse Rate [ Anterior Bilateral Throughout] Pulse Rate [ 106 H 109 H From Monitor] Respiratory 18 16 Rate Respiratory Rate [Anterior Bilateral Throughout] Blood Pressure 127/66 O2 Sat by Pulse 100 100 Oximetry 08/24/17 08/24/17 08/24/17 09:00 09:13 09:19 Temperature Pulse Rate Pulse Rate [ 107 H 106 H Anterior Bilateral Throughout] Pulse Rate [ From Monitor] Respiratory Rate Respiratory 18 16 Rate [Anterior Bilateral Throughout] Blood Pressure O2 Sat by Pulse 99 Oximetry 08/24/17 08/24/17 08/24/17 10:08 12:00 12:33 Temperature 97.6 F Pulse Rate 133 H Pulse Rate [ Anterior Bilateral Throughout] Pulse Rate [ 106 H From Monitor] Respiratory 16 Rate Respiratory Rate [Anterior Bilateral Throughout] Blood Pressure 106/72 O2 Sat by Pulse 98 Oximetry General appearance: Present: mild distress - Respiratory Respiratory effort: labored - Labs CBC & Chem 7: 08/24/17 04:00 08/24/17 04:00 Labs: Abnormal lab results 08/23/17 08/23/17 08/24/17 Range/Units 02:54 20:28 04:00 Hgb 11.1 L (11.8-15.2) gm/dl Hct 34.4 L (35.5-45.6) % MCV 71 L (84-94) fl MCH 23 L (28-32) pg RDW 22.5 H (13.2-15.2) % Lymph % (Auto) 5.6 L (13.4-35.0) % [place] % (Auto) 9.4 H (0.0-7.3) % Lymph # 0.6 L (1.2-5.4) K/mm3 [place] # 1.0 H (0.0-0.8) K/mm3 Seg Neutrophils % 84.8 H (40.0-70.0) % Seg Neutrophils # 9.2 H (1.8-7.7) K/mm3 POC ABG pO2 52 L (80-105) Sodium (137-145) mmol/L BUN (9-20) mg/dL Creatinine (0.8-1.5) mg/dL HDL Cholesterol 36 L (40-59) mg/dL 08/24/17 Range/Units 04:00 Hgb (11.8-15.2) gm/dl Hct (35.5-45.6) % MCV (84-94) fl MCH (28-32) pg RDW (13.2-15.2) % Lymph % (Auto) (13.4-35.0) % [place] % (Auto) (0.0-7.3) % Lymph # (1.2-5.4) K/mm3 [place] # (0.0-0.8) K/mm3 Seg Neutrophils % (40.0-70.0) % Seg Neutrophils # (1.8-7.7) K/mm3 POC ABG pO2 (80-105) Sodium 146 H D (137-145) mmol/L BUN 35 H (9-20) mg/dL Creatinine 1.8 H (0.8-1.5) mg/dL HDL Cholesterol (40-59) mg/dL
[2017-08-24] MEDS: ATIVAN IV PRN ×2 (14:59→19:44)
--- NOTE | 2017-08-24 15:41 | Progress Note ---
Assessment and Plan Assessment and plan: Mr. Hadley 72-year-old man with history of bipolar disorder, hypertension, bph, obesity, chronic atrial fibrillation on Xarelto, medical noncompliance, prior deep vein thrombosis, suspected CHRIS, chronic kidney disease 3, mild descending aortic aneurysm, measured at a stable 4.7 cm over several years and single- vessel coronary artery disease with a patent LAD stent on a repeat cardiac catheterization 3 years ago. Serial left ventricular systolic function assessment has recorded level ventricle systolic function is lower limits of normal. Most recent echocardiogram was done at [facility] 2-3 months ago, ejection fraction was 45-50%. He presented to the emergency room at this time with this usual complaint of shortness of breath, EKG was atrial fibrillation with ventricular rate in the 130s. The ECG showed an old anterior myocardial infarction, unchanged from his baseline. pCXR showed mild pulmonary vascular congestion. -A Fib with rvr: in ICU on Cardizem drip, signed consent for Picc line. -Acute on chronic diastolic exacerbation: treat with lasix, Cardiology to see -Urinary retention with high PVR and unable to pass merida: Urologist Dr. Ho placed a suprapubic catheter, very complex case -Coronary artery disease: low salt diet and medical management -Hypertension: treat with antihypertensives -CKD 3: monitor closely -Thoracic aneurysm by history, followed by Cardiology -Bipolar disorder with exacerbation: consulted psych History Interval history: Patient was seen and examined. Follow-up on current diagnosis of sob. The iv ativan is helping with his anxiety Hospitalist Physical - Physical exam Narrative exam: GEN: ill appearing, mild respiratory distress, Awake, Alert, sleepy but arousable HEENT: NCAT, EOMI, PERRL, OP Clear NECK: supple, no adenopathy, no thyromegaly, no JVD CVS/HEART: irregular irregular, normal S1S2, pulses present bilaterally CHEST/LUNGS: coarse bs bilateral Symmetrical chest expansion, good air entry bilaterally GI/Abdomen: soft, NTND, good bowel sounds, no guarding or rebound /Bladder: + suprapubic catheter in place EXT/Skin: no c/c/e, no obvious rash MSK: FROM x 4 Neuro: CN 2-12 grossly intact, no new focal deficits Psych: confused - Constitutional Vitals: Temp Pulse Resp BP Pulse Ox 97.6 F 86 24 106/72 98 08/24/17 12:00 08/24/17 15:25 08/24/17 15:25 08/24/17 10:08 08/24/17 12:33 General appearance: Present: mild distress Results - Labs CBC & Chem 7: 08/24/17 04:00 08/24/17 04:00 Labs: Laboratory Last Values WBC 10.9 K/mm3 (4.5-11.0) 08/24/17 04:00 RBC 4.86 M/mm3 (3.65-5.03) 08/24/17 04:00 Hgb 11.1 gm/dl (11.8-15.2) L 08/24/17 04:00 Hct 34.4 % (35.5-45.6) L 08/24/17 04:00 MCV 71 fl (84-94) L 08/24/17 04:00 MCH 23 pg (28-32) L 08/24/17 04:00 MCHC 32 % (32-34) 08/24/17 04:00 RDW 22.5 % (13.2-15.2) H 08/24/17 04:00 Plt Count 207 K/mm3 (140-440) 08/24/17 04:00 Lymph % (Auto) 5.6 % (13.4-35.0) L 08/24/17 04:00 [place] % (Auto) 9.4 % (0.0-7.3) H 08/24/17 04:00 Eos % (Auto) 0.0 % (0.0-4.3) 08/24/17 04:00 Baso % (Auto) 0.2 % (0.0-1.8) 08/24/17 04:00 Lymph # 0.6 K/mm3 (1.2-5.4) L 08/24/17 04:00 [place] # 1.0 K/mm3 (0.0-0.8) H 08/24/17 04:00 Eos # 0.0 K/mm3 (0.0-0.4) 08/24/17 04:00 Baso # 0.0 K/mm3 (0.0-0.1) 08/24/17 04:00 Seg Neutrophils % 84.8 % (40.0-70.0) H 08/24/17 04:00 Seg Neutrophils # 9.2 K/mm3 (1.8-7.7) H 08/24/17 04:00 PT 15.5 Sec. (12.2-14.9) H 08/23/17 05:03 INR 1.17 (0.87-1.13) H 08/23/17 05:03 APTT 29.0 Sec. (24.2-36.6) 08/23/17 05:03 POC ABG pH 7.420 (7.35-7.45) 08/23/17 20:28 POC ABG pCO2 42.3 (35-45) 08/23/17 20:28 POC ABG pO2 52 (80-105) L 08/23/17 20:28 POC ABG HCO3 27.4 08/23/17 20:28 POC ABG Total CO2 29 08/23/17 20:28 POC ABG O2 Sat 87 08/23/17 20:28 POC ABG Base Excess 3 08/23/17 20:28 FiO2 50 % 08/23/17 20:28 Sodium 146 mmol/L (137-145) H D 08/24/17 04:00 Potassium 4.5 mmol/L (3.6-5.0) 08/24/17 04:00 Chloride 104.6 mmol/L (98-107) 08/24/17 04:00 Carbon Dioxide 30 mmol/L (22-30) 08/24/17 04:00 Anion Gap 16 mmol/L 08/24/17 04:00 BUN 35 mg/dL (9-20) H 08/24/17 04:00 Creatinine 1.8 mg/dL (0.8-1.5) H 08/24/17 04:00 Estimated GFR 45 ml/min 08/24/17 04:00 BUN/Creatinine Ratio 19 % 08/24/17 04:00 Glucose 100 mg/dL (75-100) 08/24/17 04:00 Calcium 8.7 mg/dL (8.4-10.2) 08/24/17 04:00 Total Creatine Kinase 155 units/L (55-170) 08/23/17 10:56 CK-MB (CK-2) 4.4 ng/mL (0.0-4.0) H 08/23/17 10:56 CK-MB (CK-2) Rel Index 2.8 (0-4) 08/23/17 10:56 Troponin T 0.077 ng/mL (0.00-0.029) H D 08/23/17 10:56 NT-Pro-B Natriuret Pep 30701 pg/mL (0-900) H 08/23/17 02:54 Triglycerides 69 mg/dL (2-149) 08/23/17 02:54 Cholesterol 125 mg/dL (50-199) 08/23/17 02:54 LDL Cholesterol Direct 77 mg/dL (50-130) 08/23/17 02:54 HDL Cholesterol 36 mg/dL (40-59) L 08/23/17 02:54 Cholesterol/HDL Ratio 3.47 % 08/23/17 02:54
[2017-08-24] MEDS ORDERED: LANOXIN PO SCH (17:00)
[2017-08-25] MEDS: LOPRESSOR PO SCH ×4 (01:28→21:11)
[2017-08-25] MEDS: ATIVAN IV PRN ×2 (02:33→09:54)
[2017-08-25] MEDS: CARDIZEM PO SCH ×3 (05:12→23:17)
[2017-08-25] MEDS: LASIX IV SCH (05:12)
[2017-08-25 06:52] LABS: Hematocrit 33.5 % (35.5-45.6); Hemoglobin 10.7 gm/dl (11.8-15.2); Mean Corpuscular HGB Conc 32 % (32-34); Mean Corpuscular Volume 70 fl (84-94); Platelet Count 183 K/mm3 (140-440); Red Blood Count 4.77 M/mm3 (3.65-5.03)
[2017-08-25 06:53] LABS: Mean Corpuscular Hemoglobin 23 pg (28-32); Red Cell Distribution Width 22.5 % (13.2-15.2)
[2017-08-25 07:11] LABS: Calcium 8.8 mg/dL (8.4-10.2)
[2017-08-25] MEDS: ATROVENT IH SCH ×3 (07:28→20:31)
[2017-08-25] MEDS: K-DUR PO SCH (09:51)
[2017-08-25] MEDS: ZESTRIL PO SCH (09:51)
[2017-08-25] MEDS: BABY ASPIRIN PO SCH (09:52)
[2017-08-25] MEDS: SODIUM CHLORIDE FLUSH SYRINGE 10 ML IV SCH ×2 (09:53→23:18)
[2017-08-25] MEDS: ZAROXOLYN PO SCH (09:53)
--- NOTE | 2017-08-25 10:01 | Progress Note ---
Assessment and Plan 72 y/o male with known CHF and Afib admitted with CHF exacerbation 1. COntinue picc for access 2. Continue Diuresis 3. Positive pressure PRN 4. Psych consult for evaluation and help with medication 5. Rate control per cards. 6. Stable for transfer out of ICU Subjective Date of service: 08/25/17 Principal diagnosis: afib with RVR and CHF excacerbation Interval history: No acute events. More awake, wants food and pain medication. Suprapubic catheter still draining. Rate is better. Still in afib. Objective - Constitutional Vitals: Vital Signs - 12hr 08/24/17 08/24/17 08/24/17 22:00 22:10 22:20 Temperature Pulse Rate 99 H 105 H 116 H Pulse Rate [ Anterior Bilateral Throughout] Pulse Rate [ 101 H From Monitor] Respiratory 25 H 29 H 21 Rate Respiratory Rate [Anterior Bilateral Throughout] Blood Pressure 114/66 155/91 155/91 O2 Sat by Pulse 98 97 99 Oximetry 08/24/17 08/24/17 08/24/17 22:30 22:40 22:50 Temperature Pulse Rate 103 H 86 78 Pulse Rate [ Anterior Bilateral Throughout] Pulse Rate [ From Monitor] Respiratory 15 27 H 20 Rate Respiratory Rate [Anterior Bilateral Throughout] Blood Pressure 155/91 155/91 155/91 O2 Sat by Pulse 100 96 100 Oximetry 08/24/17 08/24/17 08/24/17 22:53 23:00 23:10 Temperature 98.5 F Pulse Rate 76 66 Pulse Rate [ Anterior Bilateral Throughout] Pulse Rate [ From Monitor] Respiratory 17 19 Rate Respiratory Rate [Anterior Bilateral Throughout] Blood Pressure 116/64 116/64 O2 Sat by Pulse 99 100 Oximetry 08/24/17 08/24/17 08/24/17 23:20 23:30 23:40 Temperature Pulse Rate 72 60 70 Pulse Rate [ Anterior Bilateral Throughout] Pulse Rate [ From Monitor] Respiratory 22 20 19 Rate Respiratory Rate [Anterior Bilateral Throughout] Blood Pressure 116/64 116/64 116/64 O2 Sat by Pulse 100 100 100 Oximetry 08/24/17 08/25/17 08/25/17 23:50 00:00 00:10 Temperature Pulse Rate 65 66 61 Pulse Rate [ Anterior Bilateral Throughout] Pulse Rate [ From Monitor] Respiratory 17 16 19 Rate Respiratory Rate [Anterior Bilateral Throughout] Blood Pressure 116/64 101/59 101/59 O2 Sat by Pulse 100 99 100 Oximetry 08/25/17 08/25/17 08/25/17 00:20 00:30 00:40 Temperature Pulse Rate 67 55 L 58 L Pulse Rate [ Anterior Bilateral Throughout] Pulse Rate [ From Monitor] Respiratory 18 17 17 Rate Respiratory Rate [Anterior Bilateral Throughout] Blood Pressure 101/59 101/59 101/59 O2 Sat by Pulse 100 100 100 Oximetry 08/25/17 08/25/17 08/25/17 00:50 01:00 01:11 Temperature Pulse Rate 64 60 65 Pulse Rate [ Anterior Bilateral Throughout] Pulse Rate [ From Monitor] Respiratory 17 18 18 Rate Respiratory Rate [Anterior Bilateral Throughout] Blood Pressure 101/59 101/59 102/66 O2 Sat by Pulse 100 100 100 Oximetry 08/25/17 08/25/17 08/25/17 01:21 01:28 01:31 Temperature Pulse Rate 68 57 L 64 Pulse Rate [ Anterior Bilateral Throughout] Pulse Rate [ From Monitor] Respiratory 18 18 Rate Respiratory Rate [Anterior Bilateral Throughout] Blood Pressure 101/59 102/66 101/59 O2 Sat by Pulse 100 100 Oximetry 08/25/17 08/25/17 08/25/17 01:41 01:51 02:00 Temperature Pulse Rate 60 63 76 Pulse Rate [ Anterior Bilateral Throughout] Pulse Rate [ 63 From Monitor] Respiratory 17 20 18 Rate Respiratory Rate [Anterior Bilateral Throughout] Blood Pressure 101/59 102/66 119/71 O2 Sat by Pulse 100 100 100 Oximetry 08/25/17 08/25/17 08/25/17 02:11 02:21 02:31 Temperature Pulse Rate 91 H 86 72 Pulse Rate [ Anterior Bilateral Throughout] Pulse Rate [ From Monitor] Respiratory 21 16 18 Rate Respiratory Rate [Anterior Bilateral Throughout] Blood Pressure 119/71 119/71 119/71 O2 Sat by Pulse 100 100 100 Oximetry 08/25/17 08/25/17 08/25/17 02:41 02:50 03:00 Temperature Pulse Rate 70 79 70 Pulse Rate [ Anterior Bilateral Throughout] Pulse Rate [ From Monitor] Respiratory 18 17 17 Rate Respiratory Rate [Anterior Bilateral Throughout] Blood Pressure 119/71 119/71 127/61 O2 Sat by Pulse 100 100 100 Oximetry 08/25/17 08/25/17 08/25/17 03:11 03:21 03:31 Temperature 97.8 F Pulse Rate 86 88 79 Pulse Rate [ Anterior Bilateral Throughout] Pulse Rate [ From Monitor] Respiratory 19 17 17 Rate Respiratory Rate [Anterior Bilateral Throughout] Blood Pressure 127/61 127/61 127/61 O2 Sat by Pulse 100 100 100 Oximetry 08/25/17 08/25/17 08/25/17 03:41 03:51 04:00 Temperature Pulse Rate 69 74 77 Pulse Rate [ Anterior Bilateral Throughout] Pulse Rate [ From Monitor] Respiratory 17 17 19 Rate Respiratory Rate [Anterior Bilateral Throughout] Blood Pressure 127/61 127/61 135/68 O2 Sat by Pulse 100 100 100 Oximetry 08/25/17 08/25/17 08/25/17 04:05 04:11 04:21 Temperature Pulse Rate 95 H 86 85 Pulse Rate [ Anterior Bilateral Throughout] Pulse Rate [ From Monitor] Respiratory 24 18 17 Rate Respiratory Rate [Anterior Bilateral Throughout] Blood Pressure 135/68 135/68 135/68 O2 Sat by Pulse 100 100 100 Oximetry 08/25/17 08/25/17 08/25/17 04:31 04:41 04:51 Temperature Pulse Rate 87 83 74 Pulse Rate [ Anterior Bilateral Throughout] Pulse Rate [ From Monitor] Respiratory 18 16 17 Rate Respiratory Rate [Anterior Bilateral Throughout] Blood Pressure 135/68 135/68 135/68 O2 Sat by Pulse 100 100 100 Oximetry 08/25/17 08/25/17 08/25/17 05:00 05:11 05:12 Temperature Pulse Rate 86 88 81 Pulse Rate [ Anterior Bilateral Throughout] Pulse Rate [ From Monitor] Respiratory 19 18 Rate Respiratory Rate [Anterior Bilateral Throughout] Blood Pressure 133/70 133/70 133/70 O2 Sat by Pulse 100 100 Oximetry 08/25/17 08/25/17 08/25/17 05:21 05:37 05:41 Temperature Pulse Rate 90 107 H 105 H Pulse Rate [ Anterior Bilateral Throughout] Pulse Rate [ From Monitor] Respiratory 16 10 L 14 Rate Respiratory Rate [Anterior Bilateral Throughout] Blood Pressure 133/70 133/70 133/70 O2 Sat by Pulse 100 100 100 Oximetry 08/25/17 08/25/17 08/25/17 05:51 06:00 06:01 Temperature Pulse Rate 89 96 H Pulse Rate [ Anterior Bilateral Throughout] Pulse Rate [ 81 From Monitor] Respiratory 16 20 17 Rate Respiratory Rate [Anterior Bilateral Throughout] Blood Pressure 133/70 151/67 O2 Sat by Pulse 98 98 100 Oximetry 08/25/17 08/25/17 08/25/17 06:11 06:21 06:31 Temperature Pulse Rate 92 H 101 H 89 Pulse Rate [ Anterior Bilateral Throughout] Pulse Rate [ From Monitor] Respiratory 16 16 16 Rate Respiratory Rate [Anterior Bilateral Throughout] Blood Pressure 151/67 151/67 151/67 O2 Sat by Pulse 100 100 100 Oximetry 08/25/17 08/25/17 08/25/17 06:41 06:51 07:00 Temperature Pulse Rate 95 H 112 H 97 H Pulse Rate [ Anterior Bilateral Throughout] Pulse Rate [ From Monitor] Respiratory 16 18 13 Rate Respiratory Rate [Anterior Bilateral Throughout] Blood Pressure 151/67 151/67 137/70 O2 Sat by Pulse 100 100 100 Oximetry 08/25/17 08/25/17 08/25/17 07:10 07:21 07:26 Temperature Pulse Rate 115 H 104 H 108 H Pulse Rate [ Anterior Bilateral Throughout] Pulse Rate [ From Monitor] Respiratory 21 22 19 Rate Respiratory Rate [Anterior Bilateral Throughout] Blood Pressure 137/70 137/70 137/70 O2 Sat by Pulse 100 100 100 Oximetry 08/25/17 08/25/17 08/25/17 07:28 07:31 07:38 Temperature Pulse Rate 99 H Pulse Rate [ 90 103 H Anterior Bilateral Throughout] Pulse Rate [ From Monitor] Respiratory 19 Rate Respiratory 18 22 Rate [Anterior Bilateral Throughout] Blood Pressure 137/70 O2 Sat by Pulse 100 100 Oximetry 08/25/17 08/25/17 08/25/17 07:41 07:51 08:00 Temperature Pulse Rate 93 H 88 86 Pulse Rate [ Anterior Bilateral Throughout] Pulse Rate [ From Monitor] Respiratory 16 22 14 Rate Respiratory Rate [Anterior Bilateral Throughout] Blood Pressure 137/70 137/70 144/70 O2 Sat by Pulse 99 100 94 Oximetry 08/25/17 08/25/17 08/25/17 08:11 08:21 08:31 Temperature Pulse Rate 93 H 82 77 Pulse Rate [ Anterior Bilateral Throughout] Pulse Rate [ From Monitor] Respiratory 25 H 28 H 27 H Rate Respiratory Rate [Anterior Bilateral Throughout] Blood Pressure 144/70 144/70 144/70 O2 Sat by Pulse 88 100 99 Oximetry 08/25/17 08/25/17 08/25/17 08:41 08:51 09:00 Temperature Pulse Rate 72 84 75 Pulse Rate [ Anterior Bilateral Throughout] Pulse Rate [ From Monitor] Respiratory 19 16 19 Rate Respiratory Rate [Anterior Bilateral Throughout] Blood Pressure 144/70 144/70 144/72 O2 Sat by Pulse 97 100 92 Oximetry 08/25/17 09:11 Temperature Pulse Rate 74 Pulse Rate [ Anterior Bilateral Throughout] Pulse Rate [ From Monitor] Respiratory 18 Rate Respiratory Rate [Anterior Bilateral Throughout] Blood Pressure 144/72 O2 Sat by Pulse 96 Oximetry General appearance: Present: no acute distress, well-nourished, obese - EENT Eyes: PERRL, EOM intact ENT: hearing intact - Neck Neck: supple, normal ROM - Respiratory Respiratory effort: normal Respiratory: negative: diminished - Breasts Breasts: deferred - Cardiovascular Rhythm: regular Heart Sounds: Present: S1 & S2 Extremities: no ischemia - Gastrointestinal General gastrointestinal: Present: soft, normal bowel sounds Rectal Exam: deferred - Musculoskeletal Musculoskeletal: strength equal bilaterally - Psychiatric Psychiatric: agitated, other (inappropriate judgement and insight) - Labs CBC & Chem 7: 08/25/17 Unknown 08/25/17 Unknown Labs: Abnormal lab results 08/23/17 08/25/17 08/25/17 Range/Units 02:54 Unknown Unknown Hgb 10.7 L (11.8-15.2) gm/dl Hct 33.5 L (35.5-45.6) % MCV 70 L (84-94) fl MCH 23 L (28-32) pg RDW 22.5 H (13.2-15.2) % Carbon Dioxide 31 H (22-30) mmol/L BUN 37 H (9-20) mg/dL Creatinine 1.6 H (0.8-1.5) mg/dL HDL Cholesterol 36 L (40-59) mg/dL
--- NOTE | 2017-08-25 11:42 | Progress Note ---
Assessment and Plan Acute on chronic diastolic heart failure Echo 04/2017 at [place] - LVEF 45-50%, moderate RV dysfunctioin, RVSP 49 mm Hg and dilated IVC Permanent atrial fibrillation with RVR Rate is better controlled History of CAD s/p PCI to LAD in 2011 History of ascending aortic aneurysm measuring [address] 03/2016 Chronic DVT on xarelto Chronic renal failure Worsening BUN/Cr Systemic Hypertension Urinary retention Non-compliance Recommendations: Discontinue digoxin and continue metoprolol and diltiazem for rate control Hold on lasix and metolazone given worsening BUN and creatinine Continue xarelto and dose according to renal function No further cardiac work-up is needed Subjective Date of service: 08/25/17 Principal diagnosis: afib with RVR and CHF excacerbation Interval history: No cardiac events overnight Objective Vital Signs Temp Pulse Pulse Pulse Resp Resp BP 08/25/17 09:11 74 18 144/72 08/25/17 09:00 75 19 144/72 08/25/17 08:51 84 16 144/70 08/25/17 08:41 72 19 144/70 08/25/17 08:31 77 27 H 144/70 08/25/17 08:21 82 28 H 144/70 08/25/17 08:11 93 H 25 H 144/70 08/25/17 08:00 86 14 144/70 08/25/17 07:51 88 22 137/70 08/25/17 07:41 93 H 16 137/70 08/25/17 07:38 103 H 22 08/25/17 07:31 99 H 19 137/70 08/25/17 07:28 90 18 08/25/17 07:26 108 H 19 137/70 08/25/17 07:21 104 H 22 137/70 08/25/17 07:10 115 H 21 137/70 08/25/17 07:00 97 H 13 137/70 08/25/17 06:51 112 H 18 151/67 08/25/17 06:41 95 H 16 151/67 08/25/17 06:31 89 16 151/67 08/25/17 06:21 101 H 16 151/67 08/25/17 06:11 92 H 16 151/67 08/25/17 06:01 96 H 17 151/67 08/25/17 06:00 81 20 07/06/18 05:51 89 16 133/70 07/06/18 05:41 105 H 14 133/70 07/06/18 05:37 107 H 10 L 133/70 07/06/18 05:21 90 16 133/70 07/06/18 05:12 81 133/70 07/06/18 05:11 88 18 133/70 07/06/18 05:00 86 19 133/70 07/06/18 04:51 74 17 135/68 07/06/18 04:41 83 16 135/68 07/06/18 04:31 87 18 135/68 07/06/18 04:21 85 17 135/68 07/06/18 04:11 86 18 135/68 07/06/18 04:05 95 H 24 135/68 07/06/18 04:00 77 19 135/68 07/06/18 03:51 74 17 127/61 07/06/18 03:41 69 17 127/61 07/06/18 03:31 79 17 127/61 07/06/18 03:21 97.8 F 88 17 127/61 07/06/18 03:11 86 19 127/61 07/06/18 03:00 70 17 127/61 07/06/18 02:50 79 17 119/71 07/06/18 02:41 70 18 119/71 07/06/18 02:31 72 18 119/71 07/06/18 02:21 86 16 119/71 07/06/18 02:11 91 H 21 119/71 07/06/18 02:00 76 63 18 119/71 07/06/18 01:51 63 20 102/66 07/06/18 01:41 60 17 101/59 07/06/18 01:31 64 18 101/59 07/06/18 01:28 57 L 102/66 07/06/18 01:21 68 18 101/59 07/06/18 01:11 65 18 102/66 07/06/18 01:00 60 18 101/59 07/06/18 00:50 64 17 101/59 07/06/18 00:40 58 L 17 101/59 07/06/18 00:30 55 L 17 101/59 07/06/18 00:20 67 18 101/59 07/06/18 00:10 61 19 101/59 07/06/18 00:00 66 16 101/59 18 23:50 65 17 116/64 18 23:40 70 19 116/64 18 23:30 60 20 116/64 18 23:20 72 22 116/64 18 23:10 66 19 116/64 08/24/18 23:00 76 17 116/64 18 22:53 98.5 F 08/24/17 22:50 78 20 155/91 18 22:40 86 27 H 155/91 08/24/17 22:30 103 H 15 155/91 18 22:20 116 H 21 155/91 18 22:10 105 H 29 H 155/91 18 22:00 99 H 101 H 25 H 114/66 08/24/17 21:41 101 H 114/66 18 20:02 89 20 08/24/17 20:00 79 129/59 08/24/17 19:56 08/24/17 19:52 85 20 08/24/17 19:27 97.8 F 08/24/17 17:56 88 115/65 08/24/17 16:00 97.8 F 96 H 23 08/24/17 15:25 86 24 08/24/17 15:10 97 H 17 08/24/17 14:55 93 H 08/24/17 12:33 106 H 16 08/24/17 12:00 97.6 F Pulse Ox 08/25/17 09:11 96 08/25/17 09:00 92 08/25/17 08:51 100 08/25/17 08:41 97 08/25/17 08:31 99 08/25/17 08:21 100 08/25/17 08:11 88 08/25/17 08:00 94 08/25/17 07:51 100 08/25/17 07:41 99 08/25/17 07:38 100 08/25/17 07:31 100 08/25/17 07:28 08/25/17 07:26 100 08/25/17 07:21 100 08/25/17 07:10 100 08/25/17 07:00 100 08/25/17 06:51 100 08/25/17 06:41 100 08/25/17 06:31 100 08/25/17 06:21 100 08/25/17 06:11 100 08/25/17 06:01 100 08/25/17 06:00 98 08/25/17 05:51 98 08/25/17 05:41 100 08/25/17 05:37 100 08/25/17 05:21 100 08/25/17 05:12 08/25/17 05:11 100 08/25/17 05:00 100 08/25/17 04:51 100 08/25/17 04:41 100 08/25/17 04:31 100 08/25/17 04:21 100 08/25/17 04:11 100 08/25/17 04:05 100 08/25/17 04:00 100 08/25/17 03:51 100 08/25/17 03:41 100 08/25/17 03:31 100 08/25/17 03:21 100 08/25/17 03:11 100 08/25/17 03:00 100 08/25/17 02:50 100 08/25/17 02:41 100 08/25/17 02:31 100 08/25/17 02:21 100 08/25/17 02:11 100 08/25/17 02:00 100 08/25/17 01:51 100 08/25/17 01:41 100 08/25/17 01:31 100 08/25/17 01:28 08/25/17 01:21 100 08/25/17 01:11 100 08/25/17 01:00 100 08/25/17 00:50 100 08/25/17 00:40 100 08/25/17 00:30 100 08/25/17 00:20 100 08/25/17 00:10 100 08/25/17 00:00 99 08/24/17 23:50 100 08/24/17 23:40 100 08/24/17 23:30 100 08/24/17 23:20 100 08/24/17 23:10 100 08/24/17 23:00 99 08/24/17 22:53 08/24/17 22:50 100 08/24/17 22:40 96 08/24/17 22:30 100 08/24/17 22:20 99 08/24/17 22:10 97 08/24/17 22:00 98 08/24/17 21:41 08/24/17 20:02 08/24/17 20:00 08/24/17 19:56 99 08/24/17 19:52 08/24/17 19:27 08/24/17 17:56 08/24/17 16:00 98 08/24/17 15:25 08/24/17 15:10 08/24/17 14:55 08/24/17 12:33 98 08/24/17 12:00 - Physical Examination General: No Apparent Distress HEENT: Positive: PERRL Neck: Positive: neck supple Cardiac: Positive: irregularly irregular Lungs: Positive: Decreased Breath Sounds Neuro: Positive: Grossly Intact Abdomen: Positive: Soft Skin: Positive: Clear Extremities: Present: +1 Edema - Labs and Meds Lipids 08/23/17 Range/Units 02:54 HDL Cholesterol 36 L (40-59) mg/dL Cholesterol/HDL Ratio 3.47 % CBC 08/25/17 Range/Units Unknown WBC 10.7 (4.5-11.0) K/mm3 RBC 4.77 (3.65-5.03) M/mm3 Hgb 10.7 L (11.8-15.2) gm/dl Hct 33.5 L (35.5-45.6) % Plt Count 183 (140-440) K/mm3 Comprehensive Metabolic Panel 08/25/17 Range/Units Unknown Sodium 143 (137-145) mmol/L Potassium 3.6 (3.6-5.0) mmol/L Chloride 100.1 (98-107) mmol/L Carbon Dioxide 31 H (22-30) mmol/L BUN 37 H (9-20) mg/dL Creatinine 1.6 H (0.8-1.5) mg/dL Glucose 87 (75-100) mg/dL Calcium 8.8 (8.4-10.2) mg/dL - Imaging and Cardiology EKG: image reviewed
[2017-08-25] MEDS: XARELTO PO SCH (13:30)
--- NOTE | 2017-08-25 14:02 | Progress Note ---
Assessment and Plan Assessment and plan: Mr. Hadley 72-year-old man with history of bipolar disorder, hypertension, bph, obesity, chronic atrial fibrillation on Xarelto, medical noncompliance, prior deep vein thrombosis, suspected CHRIS, chronic kidney disease 3, mild descending aortic aneurysm, measured at a stable 4.7 cm over several years and single- vessel coronary artery disease with a patent LAD stent on a repeat cardiac catheterization 3 years ago. Serial left ventricular systolic function assessment has recorded level ventricle systolic function is lower limits of normal. Most recent echocardiogram was done at [place] 2-3 months ago, ejection fraction was 45-50%. He presented to the emergency room at this time with this usual complaint of shortness of breath, EKG was atrial fibrillation with ventricular rate in the 130s. The ECG showed an old anterior myocardial infarction, unchanged from his baseline. pCXR showed mild pulmonary vascular congestion. -A Fib with rvr: in ICU on Cardizem drip, signed consent for Picc line. -Acute on chronic diastolic exacerbation: treat with lasix, Cardiology to see -Urinary retention with high PVR and unable to pass [place]: Urologist Dr. Ho placed a suprapubic catheter, very complex case -Coronary artery disease: low salt diet and medical management -Hypertension: treat with antihypertensives -CKD 3: monitor closely -Thoracic aneurysm by history, followed by Cardiology -Bipolar disorder with exacerbation: consulted psych rate is controlled, ok to transfer out of icu per Consultants History Interval history: Patient was seen and examined. Follow-up on current diagnosis of sob. The iv ativan is helping with his anxiety Hospitalist Physical - Physical exam Narrative exam: GEN: ill appearing, mild respiratory distress, Awake, Alert, sleepy but arousable HEENT: NCAT, EOMI, PERRL, OP Clear NECK: supple, no adenopathy, no thyromegaly, no JVD CVS/HEART: irregular irregular, normal S1S2, pulses present bilaterally CHEST/LUNGS: coarse bs bilateral Symmetrical chest expansion, good air entry bilaterally GI/Abdomen: soft, NTND, good bowel sounds, no guarding or rebound /Bladder: + suprapubic catheter in place EXT/Skin: no c/c/e, no obvious rash MSK: FROM x 4 Neuro: CN 2-12 grossly intact, no new focal deficits Psych: confused - Constitutional Vitals: Temp Pulse Resp BP Pulse Ox 97.8 F 94 H 23 143/75 98 08/25/17 03:21 08/25/17 13:46 08/25/17 13:46 08/25/17 13:34 08/25/17 13:46 General appearance: Present: no acute distress, well-nourished, obese Results - Labs CBC & Chem 7: 08/25/17 Unknown 08/25/17 Unknown Labs: Laboratory Last Values WBC 10.7 K/mm3 (4.5-11.0) 08/25/17 Unknown RBC 4.77 M/mm3 (3.65-5.03) 08/25/17 Unknown Hgb 10.7 gm/dl (11.8-15.2) L 08/25/17 Unknown Hct 33.5 % (35.5-45.6) L 08/25/17 Unknown MCV 70 fl (84-94) L 08/25/17 Unknown MCH 23 pg (28-32) L 08/25/17 Unknown MCHC 32 % (32-34) 08/25/17 Unknown RDW 22.5 % (13.2-15.2) H 08/25/17 Unknown Plt Count 183 K/mm3 (140-440) 08/25/17 Unknown Lymph % (Auto) 5.6 % (13.4-35.0) L 08/24/17 04:00 [place] % (Auto) 9.4 % (0.0-7.3) H 08/24/17 04:00 Eos % (Auto) 0.0 % (0.0-4.3) 08/24/17 04:00 Baso % (Auto) 0.2 % (0.0-1.8) 08/24/17 04:00 Lymph # 0.6 K/mm3 (1.2-5.4) L 08/24/17 04:00 [place] # 1.0 K/mm3 (0.0-0.8) H 08/24/17 04:00 Eos # 0.0 K/mm3 (0.0-0.4) 08/24/17 04:00 Baso # 0.0 K/mm3 (0.0-0.1) 08/24/17 04:00 Seg Neutrophils % 84.8 % (40.0-70.0) H 08/24/17 04:00 Seg Neutrophils # 9.2 K/mm3 (1.8-7.7) H 08/24/17 04:00 PT 15.5 Sec. (12.2-14.9) H 08/23/17 05:03 INR 1.17 (0.87-1.13) H 08/23/17 05:03 APTT 29.0 Sec. (24.2-36.6) 08/23/17 05:03 POC ABG pH 7.420 (7.35-7.45) 08/23/17 20:28 POC ABG pCO2 42.3 (35-45) 08/23/17 20:28 POC ABG pO2 52 (80-105) L 08/23/17 20:28 POC ABG HCO3 27.4 08/23/17 20:28 POC ABG Total CO2 29 08/23/17 20:28 POC ABG O2 Sat 87 08/23/17 20:28 POC ABG Base Excess 3 08/23/17 20:28 FiO2 50 % 08/23/17 20:28 Sodium 143 mmol/L (137-145) 08/25/17 Unknown Potassium 3.6 mmol/L (3.6-5.0) 08/25/17 Unknown Chloride 100.1 mmol/L (98-107) 08/25/17 Unknown Carbon Dioxide 31 mmol/L (22-30) H 08/25/17 Unknown Anion Gap 16 mmol/L 08/25/17 Unknown BUN 37 mg/dL (9-20) H 08/25/17 Unknown Creatinine 1.6 mg/dL (0.8-1.5) H 08/25/17 Unknown Estimated GFR 52 ml/min 08/25/17 Unknown BUN/Creatinine Ratio 23 % 08/25/17 Unknown Glucose 87 mg/dL (75-100) 08/25/17 Unknown Calcium 8.8 mg/dL (8.4-10.2) 08/25/17 Unknown Magnesium 2.10 mg/dL (1.7-2.3) 08/25/17 Unknown Total Creatine Kinase 155 units/L (55-170) 08/23/17 10:56 CK-MB (CK-2) 4.4 ng/mL (0.0-4.0) H 08/23/17 10:56 CK-MB (CK-2) Rel Index 2.8 (0-4) 08/23/17 10:56 Troponin T 0.077 ng/mL (0.00-0.029) H D 08/23/17 10:56 NT-Pro-B Natriuret Pep 91888 pg/mL (0-900) H 08/23/17 02:54 Triglycerides 69 mg/dL (2-149) 08/23/17 02:54 Cholesterol 125 mg/dL (50-199) 08/23/17 02:54 LDL Cholesterol Direct 77 mg/dL (50-130) 08/23/17 02:54 HDL Cholesterol 36 mg/dL (40-59) L 08/23/17 02:54 Cholesterol/HDL Ratio 3.47 % 08/23/17 02:54
[2017-08-26] MEDS: ATIVAN IV PRN ×3 (00:24→23:46)
[2017-08-26] MEDS: LOPRESSOR PO SCH ×4 (00:25→18:32)
[2017-08-26 04:34] LABS: Hematocrit 31.7 % (35.5-45.6); Hemoglobin 10.2 gm/dl (11.8-15.2); Mean Corpuscular HGB Conc 32 % (32-34); Mean Corpuscular Hemoglobin 23 pg (28-32); Mean Corpuscular Volume 70 fl (84-94); Platelet Count 195 K/mm3 (140-440); Red Blood Count 4.51 M/mm3 (3.65-5.03)
[2017-08-26 04:35] LABS: Red Cell Distribution Width 22.2 % (13.2-15.2)
[2017-08-26 05:05] LABS: BUN/Creatinine Ratio 25; Blood Urea Nitrogen 30 mg/dL (9-20); Calcium 8.8 mg/dL (8.4-10.2); Hemolysis Index 0
[2017-08-26] MEDS: CARDIZEM PO SCH ×3 (06:09→22:26)
[2017-08-26] MEDS: TYLENOL PO PRN (06:23)
--- NOTE | 2017-08-26 08:21 | Progress Note ---
Assessment and Plan Acute on chronic diastolic heart failure Echo 04/2017 at [facility] - LVEF 45-50%, moderate RV dysfunctioin, RVSP 49 mm Hg and dilated IVC Permanent atrial fibrillation with RVR Rate is better controlled History of CAD s/p PCI to LAD in 2011 History of ascending aortic aneurysm measuring [address] 03/2016 Chronic DVT on xarelto Chronic renal failure Worsening BUN/Cr Systemic Hypertension Urinary retention Non-compliance Recommendations: Continue metoprolol and diltiazem for rate control Continue aspirin Start atorvastatin Hold on lasix and metolazone given worsening BUN and creatinine Continue xarelto and dose according to renal function No further cardiac work-up is needed Subjective Date of service: 08/26/17 Principal diagnosis: afib with RVR and CHF excacerbation Interval history: No acute events. resting comfortably. No chest pain or SOB. Objective Vital Signs Temp Pulse Pulse Pulse Pulse Resp Resp 08/26/17 07:23 18 08/26/17 06:09 80 08/26/17 04:49 97.8 F 88 18 08/26/17 00:58 80 26 H 08/26/17 00:25 85 08/26/17 00:09 98.0 F 85 22 08/25/17 23:17 69 08/25/17 22:58 74 08/25/17 22:00 80 08/25/17 21:11 72 08/25/17 21:01 72 08/25/17 20:43 76 20 08/25/17 20:34 71 20 08/25/17 20:12 98.0 F 73 22 08/25/17 19:14 89 08/25/17 18:07 99.0 F 78 24 08/25/17 16:00 110 H 26 H 08/25/17 15:51 113 H 29 H 08/25/17 15:41 115 H 32 H 08/25/17 15:31 114 H 34 H 08/25/17 15:21 103 H 31 H 08/25/17 15:11 105 H 29 H 08/25/17 15:00 104 H 29 H 08/25/17 14:51 96 H 25 H 08/25/17 14:41 106 H 36 H 08/25/17 14:31 109 H 18 08/25/17 14:21 106 H 25 H 08/25/17 14:14 99 H 24 08/25/17 14:11 111 H 25 H 08/25/17 14:05 103 H 24 08/25/17 14:01 105 H 30 H 08/25/17 13:51 89 32 H 08/25/17 13:46 94 H 23 08/25/17 13:41 79 27 H 08/25/17 13:34 96 H 08/25/17 13:31 98 H 27 H 08/25/17 13:21 97 H 31 H 08/25/17 13:11 104 H 32 H 08/25/17 13:00 101 H 31 H 08/25/17 12:51 97 H 32 H 08/25/17 12:41 100 H 28 H 08/25/17 12:31 88 33 H 08/25/17 12:21 88 32 H 08/25/17 12:10 89 36 H 08/25/17 12:01 84 26 H 08/25/17 11:51 100 H 24 08/25/17 11:41 89 25 H 08/25/17 11:31 92 H 25 H 08/25/17 11:21 76 34 H 08/25/17 11:11 83 31 H 08/25/17 11:00 77 35 H 08/25/17 10:51 66 23 08/25/17 10:41 76 26 H 08/25/17 10:30 66 26 H 08/25/17 10:21 63 24 08/25/17 10:11 78 23 08/25/17 10:00 70 70 27 H 08/25/17 09:50 72 25 H 08/25/17 09:41 82 19 08/25/17 09:31 82 22 08/25/17 09:21 72 21 08/25/17 09:11 74 18 08/25/17 09:00 75 19 08/25/17 08:51 84 16 08/25/17 08:41 72 19 08/25/17 08:31 77 27 H 08/25/17 08:21 82 28 H BP Pulse Ox 08/26/17 07:23 08/26/17 06:09 144/64 08/26/17 04:49 153/77 100 08/26/17 00:58 100 08/26/17 00:25 139/71 08/26/17 00:09 139/71 94 07/06/18 23:17 150/86 07/06/18 22:58 150/86 98 07/06/18 22:00 07/06/18 21:11 141/72 07/06/18 21:01 99 07/06/18 20:43 07/06/18 20:34 99 07/06/18 20:12 148/71 96 07/06/18 19:14 07/06/18 18:07 149/71 99 07/06/18 16:00 156/72 99 07/06/18 15:51 145/79 99 07/06/18 15:41 145/79 100 07/06/18 15:31 152/73 96 07/06/18 15:21 152/73 92 07/06/18 15:11 152/73 95 07/06/18 15:00 145/79 98 07/06/18 14:51 152/73 98 07/06/18 14:41 152/73 96 07/06/18 14:31 143/75 100 07/06/18 14:21 143/75 100 07/06/18 14:14 07/0618 14:11 143/75 100 07/06/18 14:05 07/06/18 14:01 152/73 98 07/06/18 13:51 143/75 94 07/06/18 13:46 98 07/06/18 13:41 143/75 99 07/06/18 13:34 143/75 07/06/18 13:31 143/75 100 07/06/18 13:21 143/75 96 07/06/18 13:11 143/75 99 07/06/18 13:00 143/75 98 07/06/18 12:51 143/69 98 07/06/18 12:41 143/69 98 07/06/18 12:31 143/69 98 07/06/18 12:21 143/69 94 07/06/18 12:10 143/69 99 07/06/18 12:01 143/69 100 07/06/18 11:51 143/75 100 07/06/18 11:41 143/75 99 07/06/18 11:31 143/75 99 07/06/18 11:21 143/75 98 07/06/18 11:11 143/75 98 07/06/18 11:00 143/75 97 07/06/18 10:51 127/60 96 08/25/17 10:41 95 08/25/17 10:30 127/60 95 08/25/17 10:21 127/60 96 08/25/17 10:11 127/60 97 18 10:00 127/60 99 08/25/17 09:50 144/72 99 08/25/17 09:41 144/72 97 08/25/17 09:31 144/72 100 08/25/17 09:21 144/72 96 08/25/17 09:11 144/72 96 08/25/17 09:00 144/72 92 08/25/17 08:51 144/70 100 08/25/17 08:41 144/70 97 08/25/17 08:31 144/70 99 08/25/17 08:21 144/70 100 - Physical Examination General: No Apparent Distress HEENT: Positive: PERRL Neck: Positive: neck supple Neuro: Positive: Grossly Intact Abdomen: Positive: Soft Skin: Positive: Clear Extremities: Present: +1 Edema - Labs and Meds CBC 08/26/17 Range/Units 04:20 WBC 10.0 (4.5-11.0) K/mm3 RBC 4.51 (3.65-5.03) M/mm3 Hgb 10.2 L (11.8-15.2) gm/dl Hct 31.7 L (35.5-45.6) % Plt Count 195 (140-440) K/mm3 Comprehensive Metabolic Panel 08/26/17 Range/Units 04:20 Sodium 138 (137-145) mmol/L Potassium 3.6 (3.6-5.0) mmol/L Chloride 95.6 L (98-107) mmol/L Carbon Dioxide 36 H (22-30) mmol/L BUN 30 H (9-20) mg/dL Creatinine 1.2 (0.8-1.5) mg/dL Glucose 112 H (75-100) mg/dL Calcium 8.8 (8.4-10.2) mg/dL - Imaging and Cardiology EKG: image reviewed
[2017-08-26] MEDS: ATROVENT IH SCH ×3 (10:19→20:50)
[2017-08-26] MEDS: BABY ASPIRIN PO SCH (11:30)
[2017-08-26] MEDS: SODIUM CHLORIDE FLUSH SYRINGE 10 ML IV SCH ×2 (11:30→22:27)
[2017-08-26] MEDS: XARELTO PO SCH (11:31)
[2017-08-26] MEDS: ZESTRIL PO SCH (11:31)
--- NOTE | 2017-08-26 13:46 | Progress Note ---
Assessment and Plan 72 y/o male with known CHF and Afib admitted with CHF exacerbation 1. Wean supplemental O2 to off as tolerated 2. Needs net negative state daily to help with pulmonary status 3. Positive pressure PRN and nighttime. to my knowledge, patient does not have a CPAP/BIPAP or any other form of postive pressure at home. 4. Psych consult for evaluation and help with medication 5. Rate control per cards. Subjective Date of service: 08/26/17 Principal diagnosis: afib with RVR and CHF excacerbation Interval history: No acute events. Successful transfer out of unit. Off drips. Objective - Constitutional Vitals: Vital Signs - 12hr 08/26/17 08/26/17 08/26/17 04:49 06:00 06:09 Temperature 97.8 F Pulse Rate 88 94 H 80 Respiratory 18 Rate Blood Pressure 153/77 144/64 144/64 O2 Sat by Pulse 100 96 Oximetry 08/26/17 08/26/17 08/26/17 07:23 08:45 08:48 Temperature 98.0 F 98.2 F Pulse Rate 62 Respiratory 18 16 18 Rate Blood Pressure 112/53 126/85 O2 Sat by Pulse 92 Oximetry 08/26/17 08/26/17 11:22 11:31 Temperature 97.9 F Pulse Rate 67 112 H Respiratory 18 Rate Blood Pressure 117/55 147/86 O2 Sat by Pulse 93 99 Oximetry General appearance: Present: no acute distress, well-nourished, obese - EENT Eyes: PERRL ENT: hearing intact - Respiratory Respiratory effort: normal Respiratory: bilateral: diminished - Labs CBC & Chem 7: 08/26/17 04:20 08/26/17 04:20 Labs: Abnormal lab results 08/26/17 08/26/17 Range/Units 04:20 04:20 Hgb 10.2 L (11.8-15.2) gm/dl Hct 31.7 L (35.5-45.6) % MCV 70 L (84-94) fl MCH 23 L (28-32) pg RDW 22.2 H (13.2-15.2) % Chloride 95.6 L (98-107) mmol/L Carbon Dioxide 36 H (22-30) mmol/L BUN 30 H (9-20) mg/dL Glucose 112 H (75-100) mg/dL
--- NOTE | 2017-08-26 14:14 | Progress Note ---
Assessment and Plan Assessment and plan: Mr. Hadley is a 72-year-old man with a history of bipolar disorder, hypertension, bph, obesity, CHF (Most recent echocardiogram was done at [place] 2-3 months ago, ejection fraction was 45-50%), chronic atrial fibrillation on Xarelto, medical noncompliance, prior deep vein thrombosis, suspected CHRIS, chronic kidney disease 3, mild descending aortic aneurysm, measured at a stable 4.7 cm over several years and single-vessel coronary artery disease with a patent LAD stent on a repeat cardiac catheterization 3 years ago who pw SOB and admitted for CHF and afib rvr. * ECG showed an old anterior myocardial infarction, unchanged from his baseline. * pCXR showed mild pulmonary vascular congestion. -A Fib with rvr: on oral Cardizem and lopressor, Cardiology is following, out of icu 08/25/17 -Acute on chronic diastolic exacerbation: treat with lasix and discontinue by Cardiology, Dr. Mendoza -Urinary retention with high PVR and unable to pass meriad: Urologist Dr. Ho placed a suprapubic catheter, very complex case -Coronary artery disease: low salt diet and medical management -Hypertension: treat with antihypertensives -ARF on CKD 3, vasomotor nephrology poa, improved -Acute encephalopathy, poa due to above -Thoracic aneurysm by history, followed by Cardiology -Bipolar disorder with exacerbation: consulted mental health on 08/24/17, A mental health associate programmer analyst did evaluated but not helpful He removed his suprapubic catheter, counseling done, I have asked nurse to call Urologist to re-insert Today he had a 2 sec [address] pause and Dr. Nash, [employer] Teacher was notified History Interval history: Patient was seen and examined. Follow-up on current diagnosis of sob. The iv ativan is helping with his anxiety but he pulled out his suprapubic catheter Hospitalist Physical - Physical exam Narrative exam: GEN: ill appearing, nad Awake, Alert, HEENT: NCAT, EOMI, PERRL, OP Clear NECK: supple, no adenopathy, no thyromegaly, no JVD CVS/HEART: irregular irregular, normal S1S2, pulses present bilaterally CHEST/LUNGS: coarse bs bilateral Symmetrical chest expansion, good air entry bilaterally GI/Abdomen: soft, NTND, good bowel sounds, no guarding or rebound /Bladder: + suprapubic catheter removed EXT/Skin: no c/c/e, no obvious rash MSK: FROM x 4 Neuro: CN 2-12 grossly intact, no new focal deficits Psych: confused - Constitutional Vitals: Temp Pulse Resp BP Pulse Ox 97.9 F 112 H 18 147/86 99 08/26/17 11:31 08/26/17 11:31 08/26/17 11:31 08/26/17 11:31 08/26/17 11:31 General appearance: Present: no acute distress, well-nourished, obese Results - Labs CBC & Chem 7: 08/26/17 04:20 08/26/17 04:20 Labs: Laboratory Last Values WBC 10.0 K/mm3 (4.5-11.0) 08/26/17 04:20 RBC 4.51 M/mm3 (3.65-5.03) 08/26/17 04:20 Hgb 10.2 gm/dl (11.8-15.2) L 08/26/17 04:20 Hct 31.7 % (35.5-45.6) L 08/26/17 04:20 MCV 70 fl (84-94) L 08/26/17 04:20 MCH 23 pg (28-32) L 08/26/17 04:20 MCHC 32 % (32-34) 08/26/17 04:20 RDW 22.2 % (13.2-15.2) H 08/26/17 04:20 Plt Count 195 K/mm3 (140-440) 08/26/17 04:20 Lymph % (Auto) 5.6 % (13.4-35.0) L 08/24/17 04:00 [place] % (Auto) 9.4 % (0.0-7.3) H 08/24/17 04:00 Eos % (Auto) 0.0 % (0.0-4.3) 08/24/17 04:00 Baso % (Auto) 0.2 % (0.0-1.8) 08/24/17 04:00 Lymph # 0.6 K/mm3 (1.2-5.4) L 08/24/17 04:00 [place] # 1.0 K/mm3 (0.0-0.8) H 08/24/17 04:00 Eos # 0.0 K/mm3 (0.0-0.4) 08/24/17 04:00 Baso # 0.0 K/mm3 (0.0-0.1) 08/24/17 04:00 Seg Neutrophils % 84.8 % (40.0-70.0) H 08/24/17 04:00 Seg Neutrophils # 9.2 K/mm3 (1.8-7.7) H 08/24/17 04:00 PT 15.5 Sec. (12.2-14.9) H 08/23/17 05:03 INR 1.17 (0.87-1.13) H 08/23/17 05:03 APTT 29.0 Sec. (24.2-36.6) 08/23/17 05:03 POC ABG pH 7.420 (7.35-7.45) 08/23/17 20:28 POC ABG pCO2 42.3 (35-45) 08/23/17 20:28 POC ABG pO2 52 (80-105) L 08/23/17 20:28 POC ABG HCO3 27.4 08/23/17 20:28 POC ABG Total CO2 29 08/23/17 20:28 POC ABG O2 Sat 87 08/23/17 20:28 POC ABG Base Excess 3 08/23/17 20:28 FiO2 50 % 08/23/17 20:28 Sodium 138 mmol/L (137-145) 08/26/17 04:20 Potassium 3.6 mmol/L (3.6-5.0) 08/26/17 04:20 Chloride 95.6 mmol/L (98-107) L 08/26/17 04:20 Carbon Dioxide 36 mmol/L (22-30) H 08/26/17 04:20 Anion Gap 10 mmol/L 08/26/17 04:20 BUN 30 mg/dL (9-20) H 08/26/17 04:20 Creatinine 1.2 mg/dL (0.8-1.5) 08/26/17 04:20 Estimated GFR > 60 ml/min 08/26/17 04:20 BUN/Creatinine Ratio 25 % 08/26/17 04:20 Glucose 112 mg/dL (75-100) H 08/26/17 04:20 Calcium 8.8 mg/dL (8.4-10.2) 08/26/17 04:20 Magnesium 2.10 mg/dL (1.7-2.3) 08/25/17 Unknown Total Creatine Kinase 155 units/L (55-170) 08/23/17 10:56 CK-MB (CK-2) 4.4 ng/mL (0.0-4.0) H 08/23/17 10:56 CK-MB (CK-2) Rel Index 2.8 (0-4) 08/23/17 10:56 Troponin T 0.077 ng/mL (0.00-0.029) H D 08/23/17 10:56 NT-Pro-B Natriuret Pep 56384 pg/mL (0-900) H 08/23/17 02:54 Triglycerides 69 mg/dL (2-149) 08/23/17 02:54 Cholesterol 125 mg/dL (50-199) 08/23/17 02:54 LDL Cholesterol Direct 77 mg/dL (50-130) 08/23/17 02:54 HDL Cholesterol 36 mg/dL (40-59) L 08/23/17 02:54 Cholesterol/HDL Ratio 3.47 % 08/23/17 02:54
--- NOTE | 2017-08-26 23:06 | Consultation ---
History of Present Illness - Reason for Consult Consult date: 08/26/17 Reason for consult: psychiatric evaluation/bipolar disorder - Chief Complaint Chief complaint: "bipolar" - History of Present Psychiatric Illness Mr. Hadley is a 72-year-old AAM with a history of bipolar disorder, hypertension, bph, obesity, CHF, chronic atrial fibrillation, medical noncompliance, prior deep vein thrombosis, suspected CHRIS, chronic kidney disease 3, mild descending aortic aneurysm, measured at a stable 4.7 cm over several years, and single- vessel coronary artery disease with a patent LAD stent on a repeat cardiac catheterization 3 years ago, per the medical record. He was seen on the telemetry floor for psychiatric evaluation. He confirms a history of bipolar disorder. He was bleeding around the suprapubic catheter site , and nurses were caring for him. He wanted to discuss his mental health concerns, but his medical concern at the time took precedent. Further information will be gathered from him tomorrow. Medications and Allergies Allergies Allergy/AdvReac Type Severity Reaction Status Date / Time shellfish derived Allergy Itching Verified 06/26/14 13:56 Home Medications Medication Instructions Recorded Confirmed Last Taken Type Lisinopril [Zestril TAB] 40 mg PO QDAY 06/06/15 11/04/16 Unknown History Bisacodyl [Dulcolax suppos] 10 mg [place] QDAY PRN #30 supp.rect 06/15/15 11/04/16 Rx Hydrochlorothiazide [HCTZ] 25 mg PO QDAY tablet 06/15/15 11/04/16 1 Day Ago Rx ~09/24/15 Aspirin [Aspirin BABY CHEW TAB] 81 mg PO QDAY #30 tab.chew 10/12/15 11/04/16 Unknown Rx AtorvaSTATin [Lipitor] 40 mg PO QHS #30 tablet 10/12/15 11/04/16 Unknown Rx Diltiazem Cd [Cardizem CD] 240 mg PO QDAY #30 capsule 10/12/15 11/04/16 Unknown Rx Furosemide [Lasix TAB] 40 mg PO BID #60 tablet 10/12/15 11/04/16 Unknown Rx Divalproex ER [Depakote ER] 300 mg PO TID 11/04/16 11/04/16 Unknown History Docusate Sodium [Colace] 100 mg PO DAILY 11/04/16 11/04/16 Unknown History Metoprolol [Lopressor TAB] 12.5 mg PO TID 11/04/16 11/04/16 Unknown History Nitrofurantoin [place]/M-Cryst 100 mg PO Q12HR #14 capsule 11/04/16 Unknown Rx [Macrobid CAP] Potassium Chloride 10 meq PO QDAY 11/04/16 11/04/16 Unknown History Warfarin [Coumadin] 4 mg PO DAILY@1700 11/04/16 11/04/16 Unknown History risperiDONE 1.5 mg PO BID 11/04/16 11/04/16 Unknown History traZODone [Desyrel] 50 mg PO QHS 11/04/16 11/04/16 Unknown History Acetaminophen [Acetaminophen TAB] 500 mg PO Q6HR PRN #20 tablet 11/08/16 Unknown Rx Amoxicillin/K Clav Tab [Augmentin 1 tab PO Q12HR #14 tab 11/08/16 Unknown Rx 875 mg] Benzocaine/Menthol [Cepacol Sore 1 each MM Q4H PRN #1 box 11/08/16 Unknown Rx Throat Lozenge] ARIPiprazole 30 mg PO DAILY 07/25/17 07/25/17 Unknown History Aspirin BABY CHEW TAB 81 mg PO DAILY 07/25/17 07/25/17 Unknown History AtorvaSTATin 20 mg PO DAILY 07/25/17 07/25/17 Unknown History Divalproex ER 500 mg PO DAILY 07/25/17 07/25/17 Unknown History Furosemide 40 mg PO DAILY 07/25/17 07/25/17 Unknown History Lisinopril 20 mg PO DAILY 07/25/17 07/25/17 Unknown History Metoprolol 100 mg PO DAILY 07/25/17 07/25/17 Unknown History Tamsulosin 0.4 mg PO DAILY 07/25/17 07/25/17 Unknown History Xarelto 20 mg PO DAILY 07/25/17 07/25/17 Unknown History traZODone 150 mg PO BID PRN 07/25/17 07/25/17 Unknown History Diltiazem Cd [Cardizem CD] 180 mg PO QHS #30 cap 07/27/17 Unknown Rx Metoprolol Xl [Metoprolol 100 mg PO QDAY #30 tablet 07/27/17 Unknown Rx SUCCINATE ER TAB] Active Meds: Active Medications Acetaminophen (Tylenol) 650 mg PO Q4H PRN PRN Reason: Pain MILD(1-3)/Fever >100.5/IRBY Last Admin: 08/26/17 06:23 Dose: 650 mg Aspirin (Baby Aspirin) 81 mg PO QDAY [facility] Last Admin: 08/26/17 11:30 Dose: 81 mg Atorvastatin Calcium (Lipitor) 20 mg PO QHS [facility] Last Admin: 08/26/17 22:25 Dose: 20 mg Diltiazem HCl (Cardizem) 30 mg PO Q8HR [facility] Last Admin: 08/26/17 22:26 Dose: 30 mg Ipratropium [place] (Atrovent) 0.5 mg IH TIDRT [facility] Last Admin: 08/26/17 20:50 Dose: 0.5 mg Lisinopril (Zestril) 2.5 mg PO QDAY [facility] Last Admin: 08/26/17 11:31 Dose: 2.5 mg Lorazepam (Ativan) 1 mg IV Q3HR PRN PRN Reason: Agitation Last Admin: 08/26/17 14:39 Dose: 1 mg Metoprolol Tartrate (Lopressor) 50 mg PO Q6H [facility] Last Admin: 08/26/17 18:32 Dose: 50 mg Rivaroxaban (Xarelto) 20 mg PO DAILY@1130 PATRICK; Protocol Last Admin: 08/26/17 11:31 Dose: 20 mg Sodium Chloride (Sodium Chloride Flush Syringe 10 Ml) 10 ml IV BID [facility] Last Admin: 08/26/17 22:27 Dose: 10 ml Sodium Chloride (Sodium Chloride Flush Syringe 10 Ml) 10 ml IV PRN PRN PRN Reason: LINE FLUSH Past psychiatric history - Past Medical History Past Medical History: other (see HPI) - past Psychiatric treatment and history Psych: Bipolar - Social History Social history: other (daughter is involved. He denies alcohol or illicit substance use.) Mental Status Exam - Vital signs Last Vital Signs Temp 98.3 F 08/26/17 20:20 Pulse 71 08/26/17 22:26 Resp 16 08/26/17 20:52 BP 141/59 08/26/17 22:26 Pulse Ox 99 08/26/17 21:17 - Exam Orientation: time, place, person Affect: flat Mood: anxious Thought content: other (unable to obtain) Thought Process: Intact Perceptions: other (unable to obtain) Speech: normal rate and pattern Concentration: distractible Level of consciousness: alert Appetite: decreased Interaction: cooperative Results Result Diagrams: 08/26/17 04:20 08/26/17 04:20 Abnormal lab results 08/26/17 08/26/17 Range/Units 04:20 04:20 Hgb 10.2 L (11.8-15.2) gm/dl Hct 31.7 L (35.5-45.6) % MCV 70 L (84-94) fl MCH 23 L (28-32) pg RDW 22.2 H (13.2-15.2) % Chloride 95.6 L (98-107) mmol/L Carbon Dioxide 36 H (22-30) mmol/L BUN 30 H (9-20) mg/dL Glucose 112 H (75-100) mg/dL All other labs normal. Assessment and Plan Assessment and plan: Impression: bipolar disorder by history Recommendation: Plan to follow up in 24 hours to gather additional information from patient.
[2017-08-27] MEDS: LOPRESSOR PO SCH ×4 (01:06→19:33)
[2017-08-27] MEDS: TYLENOL PO PRN (01:07)
[2017-08-27] MEDS ORDERED: NACL 0.9% 1,000 ML IR ONE (03:29)
[2017-08-27] MEDS: ATIVAN IV PRN (03:57)
[2017-08-27] MEDS ORDERED: NACL 0.9% IR PRN (04:20)
[2017-08-27] MEDS: CARDIZEM PO SCH ×2 (06:50→14:40)
[2017-08-27 07:26] LABS: Hematocrit 30.7 % (35.5-45.6); Hemoglobin 9.7 gm/dl (11.8-15.2); Mean Corpuscular HGB Conc 32 % (32-34); Mean Corpuscular Volume 71 fl (84-94); Platelet Count 209 K/mm3 (140-440); Red Blood Count 4.33 M/mm3 (3.65-5.03)
[2017-08-27 07:44] LABS: Calcium 8.8 mg/dL (8.4-10.2)
[2017-08-27 07:49] LABS: Mean Corpuscular Hemoglobin 23 pg (28-32); Red Cell Distribution Width 21.3 % (13.2-15.2)
[2017-08-27] MEDS: ATROVENT IH SCH ×3 (08:56→19:47)
--- NOTE | 2017-08-27 09:29 | Progress Note ---
Assessment and Plan Assessment and plan: Mr. Hadley is a 72-year-old man with a history of bipolar disorder, hypertension, bph, obesity, CHF (Most recent echocardiogram was done at [place] 2-3 months ago, ejection fraction was 45-50%), chronic atrial fibrillation on Xarelto, medical noncompliance, prior deep vein thrombosis, suspected CHRIS, chronic kidney disease 3, mild descending aortic aneurysm, measured at a stable 4.7 cm over several years and single-vessel coronary artery disease with a patent LAD stent on a repeat cardiac catheterization 3 years ago who pw SOB and admitted for CHF and afib rvr. * ECG showed an old anterior myocardial infarction, unchanged from his baseline. * pCXR showed mild pulmonary vascular congestion. -A Fib with rvr: on oral Cardizem and lopressor, Cardiology is following, out of icu 08/25/17 -Acute on chronic diastolic exacerbation: treat with lasix and discontinued by Cardiology, Dr. Mendoza -Urinary retention with high PVR and unable to pass [place]: Urologist Dr. Ho placed a suprapubic catheter, very complex case -Coronary artery disease: low salt diet and medical management -Hypertension: treat with antihypertensives -ARF on CKD 3, vasomotor nephrology poa, improved -Acute encephalopathy, poa due to above -Thoracic aneurysm by history, followed by Cardiology -Bipolar disorder with exacerbation: consulted mental health on 08/24/17 He had a 2 sec cardiac pause Monday morning 08/26/[address] Nash, Trench Tr[employer] was notified CODE MET called due to hypotension and AMS, He did receive lopressor and cardizem this morning. HR in the low 100s. Overnight, there was issues with Suprapubic catheter, it was flushed with 2 liters, now it is not flushing. Dr. Nash did come to CODE MET and he believes the hypotension is not cardiac and recommends I contact Urology which I did (await call back), problems with suprapubic catheter. Renal function worsening. Dr. Nash thinks patient maybe getting septic from systems. I will move back to ICU. I ordered 1 liters NS bolus x 1. I called and spoke with daughter Parris, CCT 36 minutes History Interval history: Patient was seen and examined. Follow-up on current diagnosis of sob. CODE MET called due to lethargy/somnolence with low bp. SBP 66. He is denying pains. Hospitalist Physical - Physical exam Narrative exam: GEN: ill appearing, somnolent but arrousable, HEENT: NCAT, EOMI, PERRL, OP Clear NECK: supple, no adenopathy, no thyromegaly, no JVD CVS/HEART: irregular irregular, normal S1S2, pulses present bilaterally CHEST/LUNGS: coarse bs bilateral Symmetrical chest expansion, good air entry bilaterally GI/Abdomen: soft, NTND, good bowel sounds, no guarding or rebound /Bladder: + suprapubic catheter wasn't entirely removed, just the connection, to [place] bag EXT/Skin: no c/c/e, no obvious rash MSK: FROM x 4 Neuro: CN 2-12 grossly intact, no new focal deficits Psych: confused - Constitutional Vitals: Temp Pulse Resp BP Pulse Ox 97.4 F L 62 20 166/111 98 08/27/17 04:04 08/27/17 09:07 08/27/17 09:07 08/27/17 06:30 08/27/17 09:07 General appearance: Present: no acute distress, well-nourished, obese Results - Labs CBC & Chem 7: 08/27/17 06:50 08/27/17 06:50 Labs: Laboratory Last Values WBC 9.3 K/mm3 (4.5-11.0) 08/27/17 06:50 RBC 4.33 M/mm3 (3.65-5.03) 08/27/17 06:50 Hgb 9.7 gm/dl (11.8-15.2) L 08/27/17 06:50 Hct 30.7 % (35.5-45.6) L 08/27/17 06:50 MCV 71 fl (84-94) L 08/27/17 06:50 MCH 23 pg (28-32) L 08/27/17 06:50 MCHC 32 % (32-34) 08/27/17 06:50 RDW 21.3 % (13.2-15.2) H 08/27/17 06:50 Plt Count 209 K/mm3 (140-440) 08/27/17 06:50 Lymph % (Auto) 5.6 % (13.4-35.0) L 08/24/17 04:00 [place] % (Auto) 9.4 % (0.0-7.3) H 08/24/17 04:00 Eos % (Auto) 0.0 % (0.0-4.3) 08/24/17 04:00 Baso % (Auto) 0.2 % (0.0-1.8) 08/24/17 04:00 Lymph # 0.6 K/mm3 (1.2-5.4) L 08/24/17 04:00 [place] # 1.0 K/mm3 (0.0-0.8) H 08/24/17 04:00 Eos # 0.0 K/mm3 (0.0-0.4) 08/24/17 04:00 Baso # 0.0 K/mm3 (0.0-0.1) 08/24/17 04:00 Seg Neutrophils % 84.8 % (40.0-70.0) H 08/24/17 04:00 Seg Neutrophils # 9.2 K/mm3 (1.8-7.7) H 08/24/17 04:00 PT 15.5 Sec. (12.2-14.9) H 08/23/17 05:03 INR 1.17 (0.87-1.13) H 08/23/17 05:03 APTT 29.0 Sec. (24.2-36.6) 08/23/17 05:03 POC ABG pH 7.420 (7.35-7.45) 08/23/17 20:28 POC ABG pCO2 42.3 (35-45) 08/23/17 20:28 POC ABG pO2 52 (80-105) L 08/23/17 20:28 POC ABG HCO3 27.4 08/23/17 20:28 POC ABG Total CO2 29 08/23/17 20:28 POC ABG O2 Sat 87 08/23/17 20:28 POC ABG Base Excess 3 08/23/17 20:28 FiO2 50 % 08/23/17 20:28 Sodium 139 mmol/L (137-145) 08/27/17 06:50 Potassium 3.7 mmol/L (3.6-5.0) 08/27/17 06:50 Chloride 96.9 mmol/L (98-107) L 08/27/17 06:50 Carbon Dioxide 30 mmol/L (22-30) 08/27/17 06:50 Anion Gap 16 mmol/L 08/27/17 06:50 BUN 32 mg/dL (9-20) H 08/27/17 06:50 Creatinine 1.9 mg/dL (0.8-1.5) H D 08/27/17 06:50 Estimated GFR 42 ml/min 08/27/17 06:50 BUN/Creatinine Ratio 17 % 08/27/17 06:50 Glucose 115 mg/dL (75-100) H 08/27/17 06:50 POC Glucose 146 (70-105) H 08/27/17 03:29 Calcium 8.8 mg/dL (8.4-10.2) 08/27/17 06:50 Magnesium 2.10 mg/dL (1.7-2.3) 08/25/17 Unknown Total Creatine Kinase 155 units/L (55-170) 08/23/17 10:56 CK-MB (CK-2) 4.4 ng/mL (0.0-4.0) H 08/23/17 10:56 CK-MB (CK-2) Rel Index 2.8 (0-4) 08/23/17 10:56 Troponin T 0.077 ng/mL (0.00-0.029) H D 08/23/17 10:56 NT-Pro-B Natriuret Pep 25458 pg/mL (0-900) H 08/23/17 02:54 Triglycerides 69 mg/dL (2-149) 08/23/17 02:54 Cholesterol 125 mg/dL (50-199) 08/23/17 02:54 LDL Cholesterol Direct 77 mg/dL (50-130) 08/23/17 02:54 HDL Cholesterol 36 mg/dL (40-59) L 08/23/17 02:54 Cholesterol/HDL Ratio 3.47 % 08/23/17 02:54
--- NOTE | 2017-08-27 09:48 | Progress Note ---
Assessment and Plan Acute on chronic diastolic heart failure Echo 04/2017 at [place] - LVEF 45-50%, moderate RV dysfunctioin, RVSP 49 mm Hg and dilated IVC Permanent atrial fibrillation with RVR Rate is better controlled History of CAD s/p PCI to LAD in 2011 History of ascending aortic aneurysm measuring [address] 03/2016 Chronic DVT on xarelto Chronic renal failure Worsening BUN/Cr Systemic Hypertension Urinary retention Non-compliance Recommendations: Patient is likely becoming septic secondary to urinary retention recommend transfer to ICU and start levophed, obtain cultures Fluid bolus Redraw labs hold antihypertensive medications Continue aspirin and atorvastatin Recommend urology consult for evaluation of catheter Continue xarelto and dose according to renal function No further cardiac work-up is needed Subjective Date of service: 08/27/17 Principal diagnosis: afib with RVR and CHF excacerbation Interval history: Patient has done poorly overnight. He is arouasable, but unable to stay awake or answer questions. His blood pressure is now hypotensive at 60s/40s. The patient has had trouble with the suprapubic catheter overnight - not putting out or flushing appropriately.Telemetry shows atrial fibrillation with HR 150s. Objective Vital Signs Temp Pulse Pulse Resp Resp BP Pulse Ox 08/27/17 09:07 62 20 98 08/27/17 08:57 62 20 08/27/17 06:30 150 H 166/111 08/27/17 05:49 150 H 08/27/17 04:04 97.4 F L 24 166/111 08/27/17 01:07 26 H 08/27/17 01:06 174 H 154/93 08/26/17 23:30 98.8 F 103 H 22 154/93 95 08/26/17 22:26 71 141/59 08/26/17 21:17 99 08/26/17 20:52 72 16 99 08/26/17 20:45 71 16 08/26/17 20:20 98.3 F 22 141/59 08/26/17 20:18 86 08/26/17 18:32 86 141/60 08/26/17 16:29 98.6 F 84 16 141/60 89 08/26/17 15:54 92 H 18 08/26/17 15:49 100 08/26/17 15:42 96 H 18 08/26/17 11:31 97.9 F 112 H 18 147/86 99 08/26/17 11:22 67 117/55 93 08/26/17 10:00 78 - Physical Examination General: No Apparent Distress HEENT: Positive: PERRL Neck: Positive: neck supple Neuro: Positive: Grossly Intact Abdomen: Positive: Soft Skin: Positive: Clear Extremities: Present: +1 Edema - Labs and Meds CBC 08/27/17 Range/Units 06:50 WBC 9.3 (4.5-11.0) K/mm3 RBC 4.33 (3.65-5.03) M/mm3 Hgb 9.7 L (11.8-15.2) gm/dl Hct 30.7 L (35.5-45.6) % Plt Count 209 (140-440) K/mm3 Comprehensive Metabolic Panel 08/27/17 Range/Units 06:50 Sodium 139 (137-145) mmol/L Potassium 3.7 (3.6-5.0) mmol/L Chloride 96.9 L (98-107) mmol/L Carbon Dioxide 30 (22-30) mmol/L BUN 32 H (9-20) mg/dL Creatinine 1.9 H D (0.8-1.5) mg/dL Glucose 115 H (75-100) mg/dL Calcium 8.8 (8.4-10.2) mg/dL - Imaging and Cardiology EKG: image reviewed
[2017-08-27] MEDS: ZESTRIL PO SCH (10:00)
[2017-08-27] MEDS ORDERED: LEVOPHED DRIP 4 MG/NS 250 ML 4 MG/250 ML BAG IV SCH (10:00)
--- NOTE | 2017-08-27 10:35 | Progress Note ---
Subjective Date of service: 08/27/17 Principal diagnosis: afib with RVR and CHF excacerbation Objective - Constitutional Vitals: Vital Signs - 12hr 08/26/17 08/27/17 08/27/17 23:30 01:06 01:07 Temperature 98.8 F Pulse Rate 103 H 174 H Pulse Rate [ Anterior Bilateral Throughout] Respiratory 22 26 H Rate Respiratory Rate [Anterior Bilateral Throughout] Blood Pressure 154/93 154/93 O2 Sat by Pulse 95 Oximetry 08/27/17 08/27/17 08/27/17 04:04 05:49 06:30 Temperature 97.4 F L Pulse Rate 150 H 150 H Pulse Rate [ Anterior Bilateral Throughout] Respiratory 24 Rate Respiratory Rate [Anterior Bilateral Throughout] Blood Pressure 166/111 166/111 O2 Sat by Pulse Oximetry 08/27/17 08/27/17 08:57 09:07 Temperature Pulse Rate Pulse Rate [ 62 62 Anterior Bilateral Throughout] Respiratory Rate Respiratory 20 20 Rate [Anterior Bilateral Throughout] Blood Pressure O2 Sat by Pulse 98 Oximetry - Labs CBC & Chem 7: 08/28/17 02:40 08/28/17 02:40 Labs: Abnormal lab results 08/27/17 08/27/17 08/27/17 Range/Units 03:29 06:50 06:50 Hgb 9.7 L (11.8-15.2) gm/dl Hct 30.7 L (35.5-45.6) % MCV 71 L (84-94) fl MCH 23 L (28-32) pg RDW 21.3 H (13.2-15.2) % Chloride 96.9 L (98-107) mmol/L BUN 32 H (9-20) mg/dL Creatinine 1.9 H D (0.8-1.5) mg/dL Glucose 115 H (75-100) mg/dL POC Glucose 146 H (70-105)
[2017-08-27] MEDS ORDERED: CORDARONE 900 MG in D5W 482 ML IV SCH (11:00)
[2017-08-27] MEDS ORDERED: CORDARONE 150 MG in D5W 97 ML IV ONE (11:00)
[2017-08-27] MEDS ORDERED: WATER FOR INJ (PF) 10 ML ONE (11:17)
--- NOTE | 2017-08-27 11:47 | Ultrasound Report ---
FINAL REPORT EXAM: US PELVIC LIMITED HISTORY: urine retention, check suprapubic cath placement TECHNIQUE: Pelvic sonographic imaging was performed Comparison: None FINDINGS: By history, there is a suprapubic catheter present. No suprapubic catheter is identified. No urinary bladder is identified. In the expected location of the urinary bladder there is a heterogeneous 10.8 x 5.8 x 9.8 centimeter mass with dirty posterior shadowing which may represent hemorrhage or hemorrhagic filled urinary bladder less likely. Inferiorly and posteriorly there is a questionable 4.9 x 3.8 x 7.0 centimeter hypoechoic region which may represent the prostate. There is free fluid in the left lower quadrant. IMPRESSION: No urinary bladder or suprapubic catheter is identified. In the suprapubic location there is a heterogeneous 10.8 x 5.8 x 9.8 centimeter mass with dirty shadowing. There is also trace separate free fluid which appears simple in the left lower quadrant. Consider further workup with urologic assessment to include I/O catheterization or possibly CT urogram to assess physiologic and anatomic structures.
--- NOTE | 2017-08-27 11:53 | Progress Note ---
Assessment and Plan 72 y/o male with known CHF and Afib admitted with CHF exacerbation, resolved, now readmitted to the ICU for hypotension (likely from medication) and malfunctioning suprapubic catheter. 1. Follow up Urology recs 2. Cards for rate control, per nursing, they are going to restart amio drip. 3. Positive pressure PRN and nighttime. to my knowledge, patient does not have a CPAP/BIPAP or any other form of postive pressure at home. 4. Psych consult for evaluation and help with medication 5. patient's cr increased. Unsure if this is related to malfunctioning catheter vs lack of adequate diuresis. 6. Once evaluated and plans made, will have a better time from for ICU stay. Subjective Date of service: 08/27/17 Principal diagnosis: afib with RVR and CHF excacerbation Interval history: Patient brought back to ICU secondary to hypotension. Also may have obstruction or misplaced suprapubic catheter. BP now in the 150's systolically. Patient was given Dilt and metoprolol this am as well. No family at bedside but primary spoke with the Daughter. Patient appears to be getting back to base line as he is yelling out again as he did the last time he was in the unit. HR is currently not controlled. Objective - Constitutional Vitals: Vital Signs - 12hr 08/27/17 08/27/17 08/27/17 01:06 01:07 04:04 Temperature 97.4 F L Pulse Rate 174 H Pulse Rate [ Anterior Bilateral Throughout] Respiratory 26 H 24 Rate Respiratory Rate [Anterior Bilateral Throughout] Blood Pressure 154/93 166/111 O2 Sat by Pulse Oximetry 08/27/17 08/27/17 08/27/17 05:49 06:30 08:57 Temperature Pulse Rate 150 H 150 H Pulse Rate [ 62 Anterior Bilateral Throughout] Respiratory Rate Respiratory 20 Rate [Anterior Bilateral Throughout] Blood Pressure 166/111 O2 Sat by Pulse Oximetry 08/27/17 09:07 Temperature Pulse Rate Pulse Rate [ 62 Anterior Bilateral Throughout] Respiratory Rate Respiratory 20 Rate [Anterior Bilateral Throughout] Blood Pressure O2 Sat by Pulse 98 Oximetry General appearance: Present: no acute distress, obese - Respiratory Respiratory effort: normal Respiratory: bilateral: diminished - Breasts Breasts: deferred - Cardiovascular Rhythm: irregularly irregular (and tachycardic) Extremities: no ischemia - Gastrointestinal General gastrointestinal: Present: soft, non-tender - Labs CBC & Chem 7: 08/27/17 06:50 08/27/17 06:50 Labs: Abnormal lab results 08/27/17 08/27/17 08/27/17 Range/Units 03:29 06:50 06:50 Hgb 9.7 L (11.8-15.2) gm/dl Hct 30.7 L (35.5-45.6) % MCV 71 L (84-94) fl MCH 23 L (28-32) pg RDW 21.3 H (13.2-15.2) % Chloride 96.9 L (98-107) mmol/L BUN 32 H (9-20) mg/dL Creatinine 1.9 H D (0.8-1.5) mg/dL Glucose 115 H (75-100) mg/dL POC Glucose 146 H (70-105) 08/27/17 Range/Units 09:12 Hgb (11.8-15.2) gm/dl Hct (35.5-45.6) % MCV (84-94) fl MCH (28-32) pg RDW (13.2-15.2) % Chloride (98-107) mmol/L BUN (9-20) mg/dL Creatinine (0.8-1.5) mg/dL Glucose (75-100) mg/dL POC Glucose 115 H (70-105)
[2017-08-27] MEDS ORDERED: CATHFLO IV SCH (15:00)
[2017-08-27 16:03] LABS: INR 1.86 (0.87-1.13); Partial Thromboplastin Time 32.9 Sec. (24.2-36.6)
--- NOTE | 2017-08-27 16:38 | Cat Scan Report ---
FINAL REPORT PROCEDURE: CT ABDOMEN PELVIS WO CON TECHNIQUE: Computerized axial tomography of the abdomen and pelvis was performed without intravenous contrast. This study is performed without intravascular contrast material and its sensitivity for abdominal and pelvic pathology, including neoplasms, inflammation, abscess, free fluid, thrombosis, arterial dissection and infarction, is reduced compared with a contrast enhanced study. HISTORY: hematuria COMPARISON: No prior studies are available for comparison. FINDINGS: Visualized lower thorax: Cardiomegaly. Bilateral pleural effusions with adjacent pulmonary infiltrates or atelectasis. Liver: Normal size and attenuation. Spleen: Normal size and attenuation. Gallbladder and biliary system: Normal. Pancreas: Normal. Adrenals: Normal. Kidneys: There is a 5 millimeter nonobstructing calculus in the right kidney lower pole. There is a 7 millimeter calculus in the left kidney midpole. The course of the distal ureters is not well delineated, however there is a calculus in the left hemipelvis, measuring 3 millimeters, which may be within the distal left ureter GI tract: There is a large volume of stool in the right colon. No evidence of bowel obstruction. There is a small amount of free intraperitoneal air present in the upper and mid abdomen, suggesting bowel perforation. Lymph nodes and mesentery: Normal. Vasculature: IVC filter is present. Bladder: Suprapubic catheter is present. There is heterogeneous material in the urinary bladder with ill-defined soft tissue density. Findings are likely related to hemorrhagic products. There may be associated mass or infection within the urinary bladder. Reproductive organs: Enlarged prostate gland, measuring up to 7 centimeters transverse. Peritoneum: There is complex fluid in the upper abdomen. Cannot exclude hemoperitoneum. There is also a small amount of free air present Musculoskeletal structures: Healing left-sided rib fractures. Other: None. IMPRESSION: There is a small amount of free intraperitoneal air present. If there has not been recent surgery, this is compatible with bowel perforation. Finding was discussed with PINO Castro at 3:28 p.m. central standard time on 08/27/2017 Complex free fluid is seen, which may be related to hemoperitoneum A suprapubic urinary bladder catheter is present. There is high density material and mottled air in the urinary bladder lumen which may be related to hemorrhagic products. However cannot exclude urinary bladder mass or infectious process. Cardiomegaly and bilateral pleural effusions. Prominent prostate gland Bilateral renal calculi. Probable calculus in the distal left ureter
--- NOTE | 2017-08-27 18:09 | Event Note ---
Date: 08/27/17 PINO Mustafa called to inform me that Mr. Hadley has a BOWEL PERFORATION per the CT abd/pelvis wo contrast ordered by the Urologist, Dr. Clifton, which revealed free air in the upper abdomen. PINO Mustafa did notify Dr. Clifton of the results and she was told to call the [facility], Dr. Mireles. I called the Surgeon aviation electronics technician , Dr. Cortez and spoke with him. Dr. Cortez informed me to call Anesthesia to see if they would take him to surgery today. I asked Dr. Cortez to call Anesthesia but he insisted that I call Anesthesia. He proceeded to give me the extension to Anesthesia of [id number] which I called and spoke with Jessica. She gave me Dr. Paulino's number whom I called. Dr. Paulino states if this is an emergency surgery then he is available for surgery now. Then I called Dr. Cortez back and told him what Anesthesia said. Dr. Cortez says he is on his way and he will be here in 19 minutes. Then I called Dr. Mireles. Next I called and spoke with patient's daughter, Parris, to give her an update. I also called and d/w Tenter, Dr. Nash, who advises to continue Amiodarone gtt during surgery.
--- NOTE | 2017-08-27 19:47 | Progress Note ---
Assessment and Plan UR RET s/p SPT Hematuria ?francisco perf - events noted, Dr. Cortez plan to go to OR explore - since going to or/anesth will plan attempt cysto 3way evac clots, if unable place 3-way open suprapubic tube replacement; if able place 3-way will decide on other intervention depending GS plan/findings - disc w/ phone consent daughter (Flaco) disc r/b/c/a. - disc w/ daughter known past few years severe difficulty urinating but no urologist seen, possible urology procedure in 1999 Subjective Principal diagnosis: afib with RVR and CHF excacerbation Objective - Constitutional Vitals: Vital Signs - 12hr 08/27/17 08/27/17 08/27/17 08:57 09:00 09:07 Pulse Rate Pulse Rate [ 62 62 Anterior Bilateral Throughout] Pulse Rate [ 120 H From Monitor] Pulse Rate [ 120 H Left Radial] Pulse Rate [ 120 H Right Radial] Respiratory 35 H Rate Respiratory 20 20 Rate [Anterior Bilateral Throughout] Respiratory Rate [Chest] Blood Pressure O2 Sat by Pulse 98 Oximetry 08/27/17 08/27/17 08/27/17 09:32 09:46 10:00 Pulse Rate 126 H 137 H 113 H Pulse Rate [ Anterior Bilateral Throughout] Pulse Rate [ 135 H From Monitor] Pulse Rate [ Left Radial] Pulse Rate [ 135 H Right Radial] Respiratory 42 H 39 H Rate Respiratory Rate [Anterior Bilateral Throughout] Respiratory 15 Rate [Chest] Blood Pressure 115/74 O2 Sat by Pulse 99 Oximetry 08/27/17 08/27/17 08/27/17 10:16 10:30 10:46 Pulse Rate 134 H 153 H 133 H Pulse Rate [ Anterior Bilateral Throughout] Pulse Rate [ From Monitor] Pulse Rate [ Left Radial] Pulse Rate [ Right Radial] Respiratory 39 H 44 H 42 H Rate Respiratory Rate [Anterior Bilateral Throughout] Respiratory Rate [Chest] Blood Pressure 89/51 89/51 89/51 O2 Sat by Pulse 98 98 73 L Oximetry 08/27/17 08/27/17 08/27/17 11:00 11:16 11:30 Pulse Rate 126 H 132 H 126 H Pulse Rate [ Anterior Bilateral Throughout] Pulse Rate [ From Monitor] Pulse Rate [ Left Radial] Pulse Rate [ Right Radial] Respiratory 46 H 41 H 43 H Rate Respiratory Rate [Anterior Bilateral Throughout] Respiratory Rate [Chest] Blood Pressure 133/89 131/73 131/73 O2 Sat by Pulse 96 97 98 Oximetry 08/27/17 08/27/17 08/27/17 11:46 12:00 12:16 Pulse Rate 129 H 140 H 132 H Pulse Rate [ Anterior Bilateral Throughout] Pulse Rate [ From Monitor] Pulse Rate [ Left Radial] Pulse Rate [ Right Radial] Respiratory 47 H 44 H 49 H Rate Respiratory Rate [Anterior Bilateral Throughout] Respiratory Rate [Chest] Blood Pressure 142/76 142/76 143/86 O2 Sat by Pulse 98 98 Oximetry 08/27/17 08/27/17 08/27/17 12:30 12:46 13:00 Pulse Rate 135 H 125 H 105 H Pulse Rate [ Anterior Bilateral Throughout] Pulse Rate [ From Monitor] Pulse Rate [ Left Radial] Pulse Rate [ Right Radial] Respiratory 46 H 46 H 45 H Rate Respiratory Rate [Anterior Bilateral Throughout] Respiratory Rate [Chest] Blood Pressure 123/61 123/61 135/78 O2 Sat by Pulse 98 99 95 Oximetry 08/27/17 08/27/17 08/27/17 13:16 13:30 13:46 Pulse Rate 116 H 109 H 118 H Pulse Rate [ Anterior Bilateral Throughout] Pulse Rate [ From Monitor] Pulse Rate [ Left Radial] Pulse Rate [ Right Radial] Respiratory 50 H 39 H 44 H Rate Respiratory Rate [Anterior Bilateral Throughout] Respiratory Rate [Chest] Blood Pressure 109/66 109/66 109/66 O2 Sat by Pulse 97 97 95 Oximetry 08/27/17 08/27/17 08/27/17 14:00 14:05 14:16 Pulse Rate 109 H 101 H Pulse Rate [ 103 H 113 H Anterior Bilateral Throughout] Pulse Rate [ 116 H From Monitor] Pulse Rate [ Left Radial] Pulse Rate [ Right Radial] Respiratory 36 H 33 H Rate Respiratory 30 H 24 Rate [Anterior Bilateral Throughout] Respiratory Rate [Chest] Blood Pressure 116/76 116/76 O2 Sat by Pulse 94 97 Oximetry 08/27/17 08/27/17 08/27/17 14:20 14:30 14:46 Pulse Rate 113 H 115 H 106 H Pulse Rate [ Anterior Bilateral Throughout] Pulse Rate [ From Monitor] Pulse Rate [ Left Radial] Pulse Rate [ Right Radial] Respiratory 35 H 33 H 25 H Rate Respiratory Rate [Anterior Bilateral Throughout] Respiratory Rate [Chest] Blood Pressure 116/76 117/62 O2 Sat by Pulse 100 100 97 Oximetry 08/27/17 08/27/17 08/27/17 15:18 15:30 15:46 Pulse Rate 122 H 111 H 104 H Pulse Rate [ Anterior Bilateral Throughout] Pulse Rate [ From Monitor] Pulse Rate [ Left Radial] Pulse Rate [ Right Radial] Respiratory 22 27 H 30 H Rate Respiratory Rate [Anterior Bilateral Throughout] Respiratory Rate [Chest] Blood Pressure 123/82 124/63 O2 Sat by Pulse 99 100 99 Oximetry 08/27/17 08/27/17 08/27/17 16:00 16:16 16:30 Pulse Rate 114 H 109 H 101 H Pulse Rate [ Anterior Bilateral Throughout] Pulse Rate [ From Monitor] Pulse Rate [ Left Radial] Pulse Rate [ Right Radial] Respiratory 24 26 H 29 H Rate Respiratory Rate [Anterior Bilateral Throughout] Respiratory Rate [Chest] Blood Pressure 124/63 118/65 118/65 O2 Sat by Pulse 98 98 98 Oximetry 08/27/17 08/27/17 08/27/17 16:46 17:00 17:16 Pulse Rate 118 H 115 H 116 H Pulse Rate [ Anterior Bilateral Throughout] Pulse Rate [ From Monitor] Pulse Rate [ Left Radial] Pulse Rate [ Right Radial] Respiratory 23 25 H 27 H Rate Respiratory Rate [Anterior Bilateral Throughout] Respiratory Rate [Chest] Blood Pressure 118/65 137/78 128/78 O2 Sat by Pulse 100 98 100 Oximetry 08/27/17 08/27/17 08/27/17 17:30 17:46 18:00 Pulse Rate 130 H 133 H 122 H Pulse Rate [ Anterior Bilateral Throughout] Pulse Rate [ From Monitor] Pulse Rate [ Left Radial] Pulse Rate [ Right Radial] Respiratory 15 23 25 H Rate Respiratory Rate [Anterior Bilateral Throughout] Respiratory Rate [Chest] Blood Pressure 128/78 138/86 138/86 O2 Sat by Pulse 100 98 100 Oximetry 08/27/17 08/27/17 08/27/17 18:16 18:30 18:46 Pulse Rate 109 H 132 H 133 H Pulse Rate [ Anterior Bilateral Throughout] Pulse Rate [ From Monitor] Pulse Rate [ Left Radial] Pulse Rate [ Right Radial] Respiratory 38 H 28 H 38 H Rate Respiratory Rate [Anterior Bilateral Throughout] Respiratory Rate [Chest] Blood Pressure 134/83 134/83 129/64 O2 Sat by Pulse 99 99 99 Oximetry 08/27/17 08/27/17 19:00 19:16 Pulse Rate 140 H 125 H Pulse Rate [ Anterior Bilateral Throughout] Pulse Rate [ From Monitor] Pulse Rate [ Left Radial] Pulse Rate [ Right Radial] Respiratory 29 H 37 H Rate Respiratory Rate [Anterior Bilateral Throughout] Respiratory Rate [Chest] Blood Pressure 129/64 134/91 O2 Sat by Pulse 100 98 Oximetry - Labs CBC & Chem 7: 08/28/17 02:40 08/28/17 02:40 Labs: Abnormal lab results 08/27/17 08/27/17 08/27/17 Range/Units 03:29 06:50 06:50 Hgb 9.7 L (11.8-15.2) gm/dl Hct 30.7 L (35.5-45.6) % MCV 71 L (84-94) fl MCH 23 L (28-32) pg RDW 21.3 H (13.2-15.2) % PT (12.2-14.9) Sec. INR (0.87-1.13) Chloride 96.9 L (98-107) mmol/L BUN 32 H (9-20) mg/dL Creatinine 1.9 H D (0.8-1.5) mg/dL Glucose 115 H (75-100) mg/dL POC Glucose 146 H (70-105) 08/27/17 08/27/17 Range/Units 09:12 15:40 Hgb (11.8-15.2) gm/dl Hct (35.5-45.6) % MCV (84-94) fl MCH (28-32) pg RDW (13.2-15.2) % PT 22.6 H (12.2-14.9) Sec. INR 1.86 H (0.87-1.13) Chloride (98-107) mmol/L BUN (9-20) mg/dL Creatinine (0.8-1.5) mg/dL Glucose (75-100) mg/dL POC Glucose 115 H (70-105)
[2017-08-27] MEDS ORDERED: NACL 0.9% 500 ML 500 ML IV SCH (20:00)
[2017-08-27] MEDS ORDERED: NACL 0.9% 500 ML 500 ML IV ONE (20:00)
[2017-08-27] MEDS ORDERED: VITAMIN K (ADULT ONLY) 10 MG in NACL 0.9% 50 ML IV ONE (20:00)
[2017-08-27] MEDS ORDERED: DILAUDID ONE (20:03)
[2017-08-27] MEDS ORDERED: ZEMURON IV ONE (20:04)
[2017-08-27] MEDS ORDERED: QUELICIN ONE (20:04)
[2017-08-27] MEDS ORDERED: XYLOCAINE MPF 2% ONE (20:04)
[2017-08-27] MEDS ORDERED: AMIDATE IV ONE (20:04)
[2017-08-27] MEDS ORDERED: ceFAZolin 2 GM in NACL 0.9% 100 ML IV ONE (20:23)
[2017-08-27] MEDS ORDERED: ANCEF/STERILE WATER 2 GM/20 ML 2 GM/20 ML SYRINGE IV ONE (20:45)
--- NOTE | 2017-08-27 20:57 | Anesthesia Consultation ---
Anesthesia Consult and Med Hx Date of service: 08/27/17 - Airway Anesthetic Teeth Evaluation: Poor ROM Head & Neck: Adequate Mental/Hyoid Distance: Adequate Mallampati Class: Class II Intubation Access Assessment: Probably Good - Pulmonary Exam CTA: Yes - Cardiac Exam Cardiac Exam: RRR - Pre-Operative Health Status ASA Pre-Surgery Classification: ASA3 Proposed Anesthetic Plan: General - Pulmonary Hx Smoking: No Hx Asthma: No Hx Pneumonia: No Hx Sleep Apnea: No - Cardiovascular System Hx Hypertension: Yes Hx Coronary Artery Disease: Yes Hx Heart Attack/AMI: Yes Hx Pacemaker: No Hx Internal Defibrillator: No - Central Nervous System CVA: Yes (cva) Hx Psychiatric Problems: Yes (bi) - Hematic Hx Anemia: Yes - Other Systems Hx Cancer: No
[2017-08-27] MEDS ORDERED: NEO SYNEPHRINE ONE (21:41)
[2017-08-27] MEDS ORDERED: NACL 0.9% 100 ML ONE (21:41)
--- NOTE | 2017-08-27 22:49 | Consultation ---
HISOTRY OF PRESENT ILLNESS: This man apparently was referred to me by Dr. Sosa, hospitalist. He is a 72-year-old black male. He is a known case of CVA in the past and atrial fibrillation with congestive heart failure with diastolic dysfunction. He is a known case also of coronary artery disease and DVT. He gives a history of thoracic aneurysm. I got most of my notes from his history and physical examination. The patient had a suprapubic cystostomy apparently done by Dr. Ho about 3 days ago and for some reasons, the patient was manipulating the tubing at one point it went out, so I came to see him because of free air seen on a KUB done on him today. This was seen also on the CAT scan. Allergic reactions were denied by his daughter whom I talked to on the phone. PHYSICAL EXAMINATION: GENERAL: Showed a well preserved elderly man. He looks demented. I barely was able to communicate with him. Most of my communication was on the phone from his daughter. HEAD AND NECK: Essentially nonrevealing. Neck is supple. There is some congestion in the neck veins. HEART: Sound normal to me. There are some irregular heartbeats. CHEST: Essentially nonrevealing. ABDOMEN: Protuberant with severe tenderness in the mid upper abdomen. There is some distention of the abdomen as well in the upper side. GENITALIA: Shown male genitalia. The patient had a suprapubic catheter that is not draining anything. There are some blood clots in the catheter. EXTREMITIES: Showed grade 1 edema. IMPRESSION AND PLAN: Abdominal distention, free air in the abdomen, the etiology of which is unknown, status post cystoscopy and insertion of suprapubic catheter. I talked with his daughter on the phone. There is a need surgery to go on and she was going on. Dr. Clifton, thanks to him, he came to see the patient. He is going to do a cystoscopy on him and see if the air is coming from the dome of the urinary bladder or from the GI tract we do not know. His CBC showed white count of 9.3 today, it was 6.5 in the past. His platelets are normal, more than 200,000. His INR is 1.17, today is 1.86. The protime is 15.5 and today is 22.6. We will give him fresh frozen plasma now. As far as I am concerned, general surgical _, we will need to do diagnostic scope in his abdomen and see if there is any leak there or not, I do not know the answer for that question, may be the leak from the urinary bladder. JOB# [id number] BRETT/CARLOS QUESADA
[2017-08-27] MEDS ORDERED: METHYLENE BLUE ONE (22:57)
[2017-08-27] MEDS ORDERED: NACL 0.9% 1000 ML 2,000 ML ONE (23:00)
[2017-08-27] MEDS ORDERED: NACL 0.9% 1000 ML 1,000 ML ONE ×3 (23:31→23:44)
--- NOTE | 2017-08-27 23:51 | Post Operative Note ---
Date of procedure: 08/27/17 Pre-op diagnosis: Urinary Retention, Bladder clots Post-op diagnosis: same Findings: bladder full of clots, false prostatic passage, lg prost, Procedure: Cysto, evacuation of clots, difficult catheter placement Anesthesia: MIRIANA Surgeon: KINDRA CARSON Estimated blood loss: minimal Pathology: none Condition: stable Disposition: PACU
--- NOTE | 2017-08-28 00:10 | XRay Report ---
FINAL REPORT PROCEDURE: XR CHEST 1V AP TECHNIQUE: Chest radiograph anteroposterior view. CPT 51042 HISTORY: CENTRAL LINE PLACEMENT COMPARISON: 08/23/2017 FINDINGS: Heart: Heart size is slightly prominent but stable. Mediastinum/Vessels: Normal. Lungs/Pleural space: The lungs are clear without infiltrate or effusion. No pneumothorax.. Bony thorax: There are old fractures of the mid axillary right ribs. Moderate degenerative changes of the thoracic spine.. Life support devices: The endotracheal tube ends 4 centimeters above the myah. A nasogastric tube ends at the level of the hemidiaphragms, this appears to be at the gastroesophageal region. A left central catheter and left PICC catheter ends in the SVC.. IMPRESSION: There is no evidence of an acute consolidation or effusion. Left central catheter, PICC catheter and the endotracheal tube are properly positioned. The nasogastric tube appears to end at the gastroesophageal junction..
[2017-08-28] MEDS: NACL 0.9% IR SCH ×6 (00:46→22:57)
[2017-08-28] MEDS: LOPRESSOR PO SCH ×3 (02:01→08:28)
[2017-08-28] MEDS: CARDIZEM PO SCH ×3 (02:03→08:26)
[2017-08-28] MEDS: SODIUM CHLORIDE FLUSH SYRINGE 10 ML IV SCH ×2 (02:04→23:01)
[2017-08-28 02:53] LABS: Basophils % (Auto) 0.2 % (0.0-1.8); Hematocrit 34.5 % (35.5-45.6); Hemoglobin 10.8 gm/dl (11.8-15.2); Lymphocytes # (Auto) 0.5 K/mm3 (1.2-5.4); Mean Corpuscular HGB Conc 31 % (32-34); Mean Corpuscular Volume 74 fl (84-94); Monocytes # (Auto) 1.1 K/mm3 (0.0-0.8); Monocytes % (Auto) 8.8 % (0.0-7.3); Platelet Count 193 K/mm3 (140-440)
[2017-08-28] MEDS: ATIVAN IV PRN ×3 (02:58→10:30)
[2017-08-28 03:02] LABS: Mean Corpuscular Hemoglobin 23 pg (28-32); Red Cell Distribution Width 23.6 % (13.2-15.2)
[2017-08-28 03:07] LABS: Calcium 7.5 mg/dL (8.4-10.2)
[2017-08-28] MEDS: ATROVENT IH SCH ×3 (07:28→19:57)
--- NOTE | 2017-08-28 10:02 | Operative Report ---
PREOPERATIVE DIAGNOSES: Acute surgical abdomen, benign status post suprapubic cystostomy done by Dr. Ho. POSTOPERATIVE DIAGNOSES: Acute surgical abdomen, benign status post suprapubic cystostomy done by Dr. Ho. About 2000 mL of blood found in the abdominal cavity. There was no evidence of any involvement of the GI tract. This was done with Dr. Clifton, who did the part of the operation. My involvement in the case that I introduced a triple lumen central line layer at left jugular pouch. SURGERY: Exploratory laparotomy, evacuation of large amounts of blood from the abdominal cavity, total about 2000 mL. This may be mixed with the urine because we did instill methylene blue via the Montgomery catheter and it showed in the abdominal cavity, mainly in the lower side. The patient also had adhesions to the omentum of the abdominal wall, we were able to dissect it completely. The stomach, the intestine, the spleen, and the liver looked normal. There is no evidence of any GI tract pathology, otherwise. As mentioned above, this was done with the help of Dr. Clifton. ANESTHESIA: General. PROCEDURE: With the patient in the supine position, cleansed and draped in the usual fashion, I tried to put a central line on the patient via right and left subclavian approach that did not work. His blood pressure was on the lower side, so we had to do it via a left jugular approach. Dr. Clifton did his portion of the operation, which is a cystoscopy and insertion of a large Montgomery catheter. After Dr. Clifton finished his part, I went ahead with a #5 trocar in the mid right abdomen. With the camera, I was able to see the abdomen. Then, I put another #5 in the mid lower abdomen, as mentioned above, lots of sanguinous material within the abdominal cavity. These were irrigated out completely and then I checked the stomach and the intestine which was normal. Some of the adhesions were seen between the omentum and the abdominal wall. I was able to lyse them. So, after finishing this, an NG tube was inserted by Anesthesia and the gastric pouch was checked, looking for any perforation, none was seen and then in the intestines and none was seen. The duodenum looked normal to me. It seemed that there were blood clots in the cul-de-sac area and then as mentioned above, we did instill methylene blue via the Montgomery catheter and then we saw it into the pelvic area. There was no methylene blue seen in the epigastric or in the abdominal area. It is mainly and only in the pelvic area. So, at that point, we removed the 3 trocars after inserting #10 drain in the subphrenic space on the right side and #19 into the pelvic area. I did take a chest x-ray at the end of the operation. There was no evidence of a pneumothorax. The patient was then transferred to the Intensive Care Unit. JOB# [id number] BRETT/CARLOS
[2017-08-28] MEDS: fentaNYL DRIP Premix 2,000 MCG/100 ML BAG IV SCH (10:30)
--- NOTE | 2017-08-28 11:04 | Progress Note ---
Subjective - Reason for Consult Consult date: 08/28/17 Reason for consult: Psychiatry Follow-up - Chief Complaint Chief complaint: "The patient is intubated" 72-year-old AAM with a history of bipolar disorder, hypertension, bph, obesity, CHF, chronic atrial fibrillation, medical noncompliance, prior deep vein thrombosis, suspected CHRIS, chronic kidney disease 3, mild descending aortic aneurysm, measured at a stable 4.7 cm over several years, and single-vessel coronary artery disease with a patent LAD stent on a repeat cardiac catheterization 3 years ago, per the medical record. Today the patient is intubated. Per his assigned nurse, the patient had an Exploratory Lap procedure yesterday. No signs of agitation. Mental Status Exam - Vital signs Last Vital Signs Temp 98.6 F 08/28/17 08:00 Pulse 142 H 08/28/17 08:28 Resp 20 08/28/17 06:00 BP 117/77 08/28/17 08:26 Pulse Ox 99 08/28/17 07:24 - Exam Narrative exam: MSE could not be completed because of the patient's condition. Assessment and Plan Impression: Bipolar DO per Hx. The patient is intubated. Recommendation/Plan: Will follow up with patient in 24 hours.
[2017-08-28] MEDS ORDERED: NEO-SYNEPHRINE 100 MG in NACL 0.9% 90 ML IV SCH (12:15)
--- NOTE | 2017-08-28 12:25 | Progress Note ---
Assessment and Plan - Patient Problems (1) Respiratory failure Current Visit: Yes Status: Acute (2) Shock Current Visit: Yes Status: Acute (3) Atrial fibrillation with RVR Current Visit: Yes Status: Acute Subjective Date of service: 08/28/17 Principal diagnosis: afib with RVR and CHF excacerbation Interval history: VENT' Objective Vital Signs Temp Pulse Pulse Pulse Resp Resp BP 08/28/17 12:00 99.6 F 08/28/17 08:28 142 H 08/28/17 08:26 140 H 117/77 08/28/17 08:00 98.6 F 08/28/17 07:24 132 H 159/117 08/28/17 06:34 134 H 112/58 08/28/17 06:00 119 H 124 H 20 101/71 08/28/17 05:45 111 H 22 123/72 08/28/17 05:31 126 H 19 123/72 08/28/17 05:15 115 H 18 116/77 08/28/17 05:01 117 H 19 113/59 08/28/17 05:00 117 H 08/28/17 04:45 130 H 9 L 96/57 08/28/17 04:31 124 H 15 96/57 08/28/17 04:15 126 H 22 122/65 08/28/17 04:00 123 H 123 H 18 122/65 08/28/17 03:58 114 H 122/65 08/28/17 03:45 122 H 21 119/62 08/28/17 03:31 127 H 18 119/62 08/28/17 03:15 101 H 18 110/72 08/28/17 03:01 115 H 26 H 116/90 08/28/17 02:45 114 H 20 116/90 08/28/17 02:30 121 H 18 105/63 08/28/17 02:15 109 H 19 98/62 08/28/17 02:03 113 H 103/66 08/28/17 02:01 117 H 18 103/66 08/28/17 02:00 118 H 08/28/17 01:45 121 H 18 132/81 08/28/17 01:31 113 H 18 132/81 08/28/17 01:28 118 H 08/28/17 01:15 107 H 18 144/85 08/28/17 01:01 119 H 18 144/85 08/28/17 00:45 115 H 19 145/86 08/28/17 00:31 127 H 15 144/91 08/28/17 00:30 117 H 26 H 146/69 08/28/17 00:15 118 H 26 H 141/69 08/28/17 00:10 118 H 145/86 08/28/17 00:03 08/28/17 00:01 97.1 F L 110 H 26 H 144/87 08/27/17 20:00 120 H 37 H 136/75 08/27/17 19:57 117 H 22 08/27/17 19:48 08/27/17 19:47 131 H 22 08/27/17 19:46 147 H 32 H 136/75 08/27/17 19:30 142 H 22 144/116 08/27/17 19:16 125 H 37 H 134/91 08/27/17 19:00 140 H 29 H 129/64 08/27/17 18:46 133 H 38 H 129/64 08/27/17 18:30 132 H 28 H 134/83 08/27/17 18:16 109 H 38 H 134/83 08/27/17 18:00 122 H 125 H 25 H 138/86 08/27/17 17:46 133 H 23 138/86 08/27/17 17:30 130 H 15 128/78 08/27/17 17:16 116 H 27 H 128/78 08/27/17 17:00 115 H 25 H 137/78 08/27/17 16:46 118 H 23 118/65 08/27/17 16:30 101 H 29 H 118/65 08/27/17 16:16 109 H 26 H 118/65 08/27/17 16:00 114 H 24 124/63 08/27/17 15:46 104 H 30 H 124/63 08/27/17 15:30 111 H 27 H 123/82 08/27/17 15:18 122 H 22 08/27/17 14:46 106 H 25 H 117/62 08/27/17 14:30 115 H 33 H 116/76 08/27/17 14:20 113 H 35 H 08/27/17 14:16 101 H 113 H 33 H 24 116/76 08/27/17 14:05 103 H 30 H 08/27/17 14:00 109 H 116 H 36 H 116/76 08/27/17 13:46 118 H 44 H 109/66 08/27/17 13:30 109 H 39 H 109/66 08/27/17 13:16 116 H 50 H 109/66 08/27/17 13:00 105 H 45 H 135/78 08/27/17 12:46 125 H 46 H 123/61 08/27/17 12:30 135 H 46 H 123/61 Pulse Ox 08/28/17 12:00 08/28/17 08:28 08/28/17 08:26 08/28/17 08:00 08/28/17 07:24 99 08/28/17 06:34 08/28/17 06:00 99 08/28/17 05:45 08/28/17 05:31 100 08/28/17 05:15 100 08/28/17 05:01 99 08/28/17 05:00 08/28/17 04:45 99 08/28/17 04:31 97 08/28/17 04:15 100 08/28/17 04:00 98 08/28/17 03:58 100 08/28/17 03:45 08/28/17 03:31 97 08/28/17 03:15 08/28/17 03:01 08/28/17 02:45 100 08/28/17 02:30 08/28/17 02:15 08/28/17 02:03 08/28/17 02:01 08/28/17 02:00 99 08/28/17 01:45 08/28/17 01:31 08/28/17 01:28 99 08/28/17 01:15 08/28/17 01:01 100 08/28/17 00:45 83 L 08/28/17 00:31 98 08/28/17 00:30 100 08/28/17 00:15 100 08/28/17 00:10 97 08/28/17 00:03 100 08/28/17 00:01 100 08/27/17 20:00 100 08/27/17 19:57 08/27/17 19:48 99 08/27/17 19:47 08/27/17 19:46 100 08/27/17 19:30 100 08/27/17 19:16 98 08/27/17 19:00 100 08/27/17 18:46 99 08/27/17 18:30 99 08/27/17 18:16 99 08/27/17 18:00 98 08/27/17 17:46 98 08/27/17 17:30 100 08/27/17 17:16 100 08/27/17 17:00 98 08/27/17 16:46 100 08/27/17 16:30 98 08/27/17 16:16 98 08/27/17 16:00 98 08/27/17 15:46 99 08/27/17 15:30 100 08/27/17 15:18 99 08/27/17 14:46 97 08/27/17 14:30 100 08/27/17 14:20 100 08/27/17 14:16 97 08/27/17 14:05 08/27/17 14:00 94 08/27/17 13:46 95 08/27/17 13:30 97 08/27/17 13:16 97 08/27/17 13:00 95 08/27/17 12:46 99 08/27/17 12:30 98 - Physical Examination General: Other (VENT') HEENT: Positive: PERRL Neck: Positive: neck supple Cardiac: Positive: Irregularly Regular, Tachycardia Lungs: Positive: clear to auscultation Neuro: Positive: Grossly Intact Abdomen: Positive: Soft, Other (DRESSED WOUND) Skin: Positive: Clear Extremities: Present: edema (TR) - Labs and Meds Coagulation 08/27/17 Range/Units 15:40 PT 22.6 H (12.2-14.9) Sec. INR 1.86 H (0.87-1.13) APTT 32.9 (24.2-36.6) Sec. CBC 08/28/17 Range/Units 02:40 WBC 12.4 H (4.5-11.0) K/mm3 RBC 4.70 (3.65-5.03) M/mm3 Hgb 10.8 L (11.8-15.2) gm/dl Hct 34.5 L (35.5-45.6) % Plt Count 193 (140-440) K/mm3 Lymph # 0.5 L (1.2-5.4) K/mm3 [place] # 1.1 H (0.0-0.8) K/mm3 Eos # 0.0 (0.0-0.4) K/mm3 Baso # 0.0 (0.0-0.1) K/mm3 Comprehensive Metabolic Panel 08/28/17 Range/Units 02:40 Sodium 135 L (137-145) mmol/L Potassium 4.7 D (3.6-5.0) mmol/L Chloride 97.6 L (98-107) mmol/L Carbon Dioxide 25 (22-30) mmol/L BUN 37 H (9-20) mg/dL Creatinine 2.5 H (0.8-1.5) mg/dL Glucose 127 H (75-100) mg/dL Calcium 7.5 L (8.4-10.2) mg/dL - Imaging and Cardiology EKG: image reviewed
[2017-08-28 12:53] LABS: Hematocrit 31.2 % (35.5-45.6); Hemoglobin 9.9 gm/dl (11.8-15.2); Mean Corpuscular HGB Conc 32 % (32-34); Mean Corpuscular Volume 74 fl (84-94); Platelet Count 179 K/mm3 (140-440); Red Blood Count 4.24 M/mm3 (3.65-5.03)
[2017-08-28 12:57] LABS: Albumin 2.1 g/dL (3.9-5); Calcium 7.3 mg/dL (8.4-10.2); Mean Corpuscular Hemoglobin 23 pg (28-32); Red Cell Distribution Width 23.2 % (13.2-15.2)
[2017-08-28 13:00] LABS: INR 1.85 (0.87-1.13)
[2017-08-28 13:01] LABS: Partial Thromboplastin Time 32.3 Sec. (24.2-36.6)
--- NOTE | 2017-08-28 13:24 | Progress Note ---
Assessment and Plan Assessment and plan: Mr. Hadley is a 72-year-old man with a history of bipolar disorder, hypertension, bph, obesity, CHF (Most recent echocardiogram was done at [place] 2-3 months ago, ejection fraction was 45-50%), chronic atrial fibrillation on Xarelto, medical noncompliance, prior deep vein thrombosis, suspected CHRIS, chronic kidney disease 3, mild descending aortic aneurysm, measured at a stable 4.7 cm over several years and single-vessel coronary artery disease with a patent LAD stent on a repeat cardiac catheterization 3 years ago who pw SOB and admitted for CHF and afib rvr. * ECG showed an old anterior myocardial infarction, unchanged from his baseline. * pCXR showed mild pulmonary vascular congestion. -A Fib with rvr: on oral Cardizem and lopressor, Cardiology is following, out of icu 08/25/17 -Acute on chronic diastolic exacerbation: treat with lasix and discontinued by Cardiology, Dr. Mendoza -Urinary retention with high PVR and unable to pass merida: Urologist Dr. Ho placed a suprapubic catheter, very complex case -Coronary artery disease: low salt diet and medical management -Hypertension: treat with antihypertensives -ARF on CKD 3, vasomotor nephrology poa, improved -Acute encephalopathy, poa due to above -Thoracic aneurysm by history, followed by Cardiology -Bipolar disorder with exacerbation: consulted mental health on 08/24/17Monday08/26/17; He had a [address] Nash, Sheeter Helper was notified, Overnight, there was issues with Suprapubic catheter, it was flushed with 2 liters, now it is not flushing. Monday CODE MET called due to hypotension and AMS, He did receive lopressor and cardizem early in the morning. HR in the low 100s. Dr. Nash did come to CODE MET and he believes that the hypotension is not cardiac and recommends I contact Urology which I did (await call back), problems with suprapubic catheter. Renal function worsening. Dr. Nash thinks patient maybe getting septic from systems. I will move back to ICU. I ordered 1 liters NS bolus x 1. Found to have Bowel perforation, s/p Surgical procedure but no Operative note done. AFib still uncontrolled, he has a urinary merida. Levophed/Cardizem per Cardiology CCT 32 minutes History Interval history: Patient was seen and examined. Follow-up on SBO. Patient still intubated since surgery yesterday. Hospitalist Physical - Physical exam Narrative exam: GEN: ill appearing, intubated and sedated HEENT: NCAT, EOMI, PERRL, OP Clear NECK: supple, no adenopathy, no thyromegaly, no JVD CVS/HEART: irregular irregular, normal S1S2, pulses present bilaterally CHEST/LUNGS: coarse bs bilateral Symmetrical chest expansion, good air entry bilaterally GI/Abdomen: distended, +right drain in place /Bladder: + suprapubic catheter wasn't entirely removed, just the connection, to merdia bag EXT/Skin: no c/c/e, no obvious rash MSK: sedated Neuro: CN 2-12 grossly intact, not following commands Psych: sedated - Constitutional Vitals: Temp Pulse Resp BP Pulse Ox 99.6 F 125 H 20 94/43 100 08/28/17 12:00 08/28/17 12:34 08/28/17 06:00 08/28/17 12:34 08/28/17 12:34 General appearance: Present: no acute distress, obese Results - Labs CBC & Chem 7: 08/28/17 12:10 08/28/17 12:10 Labs: Laboratory Last Values WBC 15.6 K/mm3 (4.5-11.0) H 08/28/17 12:10 RBC 4.24 M/mm3 (3.65-5.03) 08/28/17 12:10 Hgb 9.9 gm/dl (11.8-15.2) L 08/28/17 12:10 Hct 31.2 % (35.5-45.6) L 08/28/17 12:10 MCV 74 fl (84-94) L 08/28/17 12:10 MCH 23 pg (28-32) L 08/28/17 12:10 MCHC 32 % (32-34) 08/28/17 12:10 RDW 23.2 % (13.2-15.2) H 08/28/17 12:10 Plt Count 179 K/mm3 (140-440) 08/28/17 12:10 Lymph % (Auto) 4.0 % (13.4-35.0) L 08/28/17 02:40 [place] % (Auto) 8.8 % (0.0-7.3) H 08/28/17 02:40 Eos % (Auto) 0.0 % (0.0-4.3) 08/28/17 02:40 Baso % (Auto) 0.2 % (0.0-1.8) 08/28/17 02:40 Lymph # 0.5 K/mm3 (1.2-5.4) L 08/28/17 02:40 [place] # 1.1 K/mm3 (0.0-0.8) H 08/28/17 02:40 Eos # 0.0 K/mm3 (0.0-0.4) 08/28/17 02:40 Baso # 0.0 K/mm3 (0.0-0.1) 08/28/17 02:40 Seg Neutrophils % 87.0 % (40.0-70.0) H 08/28/17 02:40 Seg Neutrophils # 10.8 K/mm3 (1.8-7.7) H 08/28/17 02:40 PT 22.5 Sec. (12.2-14.9) H 08/28/17 12:10 INR 1.85 (0.87-1.13) H 08/28/17 12:10 APTT 32.3 Sec. (24.2-36.6) 08/28/17 12:10 POC ABG pH 7.398 (7.35-7.45) 08/28/17 04:16 POC ABG pCO2 39.8 (35-45) 08/28/17 04:16 POC ABG pO2 110 (80-105) H 08/28/17 04:16 POC ABG HCO3 24.6 08/28/17 04:16 POC ABG Total CO2 26 08/28/17 04:16 POC ABG O2 Sat 98 08/28/17 04:16 POC ABG Base Excess 0 08/28/17 04:16 FiO2 50 % 08/28/17 04:16 Sodium 138 mmol/L (137-145) 08/28/17 12:10 Potassium 4.6 mmol/L (3.6-5.0) 08/28/17 12:10 Chloride 101.2 mmol/L (98-107) 08/28/17 12:10 Carbon Dioxide 25 mmol/L (22-30) 08/28/17 12:10 Anion Gap 16 mmol/L 08/28/17 12:10 BUN 40 mg/dL (9-20) H 08/28/17 12:10 Creatinine 2.4 mg/dL (0.8-1.5) H 08/28/17 12:10 Estimated GFR 32 ml/min 08/28/17 12:10 BUN/Creatinine Ratio 17 % 08/28/17 12:10 Glucose 118 mg/dL (75-100) H 08/28/17 12:10 POC Glucose 115 (70-105) H 08/27/17 09:12 Calcium 7.3 mg/dL (8.4-10.2) L 08/28/17 12:10 Phosphorus 3.60 mg/dL (2.5-4.5) 08/28/17 12:10 Magnesium 1.70 mg/dL (1.7-2.3) 08/28/17 12:10 Total Bilirubin 1.40 mg/dL (0.1-1.2) H 08/28/17 12:10 AST 32 units/L (5-40) 08/28/17 12:10 ALT 16 units/L (7-56) 08/28/17 12:10 Alkaline Phosphatase 42 units/L (35-129) 08/28/17 12:10 Total Creatine Kinase 155 units/L (55-170) 08/23/17 10:56 CK-MB (CK-2) 4.4 ng/mL (0.0-4.0) H 08/23/17 10:56 CK-MB (CK-2) Rel Index 2.8 (0-4) 08/23/17 10:56 Troponin T 0.077 ng/mL (0.00-0.029) H D 08/23/17 10:56 NT-Pro-B Natriuret Pep 53072 pg/mL (0-900) H 08/23/17 02:54 Total Protein 5.3 g/dL (6.3-8.2) L 08/28/17 12:10 Albumin 2.1 g/dL (3.9-5) L 08/28/17 12:10 Albumin/Globulin Ratio 0.7 % 08/28/17 12:10 Triglycerides 69 mg/dL (2-149) 08/23/17 02:54 Cholesterol 125 mg/dL (50-199) 08/23/17 02:54 LDL Cholesterol Direct 77 mg/dL (50-130) 08/23/17 02:54 HDL Cholesterol 36 mg/dL (40-59) L 08/23/17 02:54 Cholesterol/HDL Ratio 3.47 % 08/23/17 02:54 Blood Type B POSITIVE 08/27/17 20:03 Antibody Screen Negative 08/27/17 20:03 Crossmatch See Detail 08/27/17 20:03
[2017-08-28 13:32] LABS: Anisocytosis 1+; Basophils % (Manual) 0 % (0.0-1.8); Eosinophils % (Manual) 0 % (0.0-4.3); RBC Morphology Normal; Total Cells Counted 100
[2017-08-28] MEDS ORDERED: VANCOMYCIN 1,500 MG in NACL 0.9% 500 ML 500 ML IV ONE (14:00)
[2017-08-28] MEDS: NACL 0.9% 1000 ML 1,000 ML IV SCH ×2 (14:00→23:45)
--- NOTE | 2017-08-28 14:27 | Progress Note ---
Assessment and Plan Imp: 1. Urinary obstruction/retention -> r/o UTI 2. SIRS, r/o sepsis 3. Acute respiratory failure, hypoxia 4. JULIÁN 5. Shock/hypotension, hopefully volume depletion but r/o sepsis 6. Afib w/ RVR Rec: 1. 1 liter bolus of NS, followed by 125mL/hour 2. Lactate stat; start Neosynephrine to keep MAP > 65; decreased Fentanyl drip 3. Afib w/ RVR per cardiology 4. Hawley-culture, and start empiric Vanco/Cefipime 5. Decrease PEEP to 5; rest on ventilator today 6. Surgery/Urology f/u 7. SCDs 8. H/H is stable; monitor; s/p Vit K last evening No family present; prognosis is guarded CCT 31 minutes Subjective Date of service: 08/28/17 Principal diagnosis: afib with RVR and CHF excacerbation Interval history: s/p Bladder irrigation (large clots), and merida catheter placement, and diagnostic laparoscopy (results not known given operative note not available). Patient was left on ventilator after surgery and is currently sedated on Fentanyl, cannot provide hx. Patient hypotensive when I saw him. Active Medications Acetaminophen (Tylenol) 650 mg PO Q4H PRN PRN Reason: Pain MILD(1-3)/Fever >100.5/IRBY Last Admin: 08/27/17 01:07 Dose: 650 mg Atorvastatin Calcium (Lipitor) 20 mg PO QHS PATRICK Last Admin: 08/28/17 02:16 Dose: 20 mg Famotidine (Pepcid) 20 mg IV BID PATRICK Norepinephrine (Levophed Drip 4 Mg/Ns 250 Ml) 4 mg in 250 mls @ 7.5 mls/hr IV TITR PATRICK; Protocol Sodium Chloride (Nacl 0.9% 500 Ml) 500 mls @ 0 mls/hr IV ONCE PATRICK Stop: 08/28/17 23:00 Fentanyl Citrate (Fentanyl Drip Premix) 2,000 mcg in 100 mls @ 4.655 mls/hr IV TITR PATRICK; Protocol Last Titration: 08/28/17 12:00 Dose: 0 mcg/kg/hr, 0 mls/hr Phenylephrine HCl 100 mg/ (Sodium Chloride) 100 mls @ 3 mls/hr IV TITR PATRICK; Protocol Last Titration: 08/28/17 13:33 Dose: 70 mcg/min, 4.2 mls/hr Sodium Chloride (Nacl 0.9% 1000 Ml) 1,000 mls @ 125 mls/hr IV DIRECT PATRICK Cefepime HCl (Maxipime/Ns 2 Gm/100 Ml) 2 gm in 100 mls @ 200 mls/hr IV Q24HR PATRICK Vancomycin HCl 1,500 mg/ (Sodium Chloride) 515 mls @ 333.333 mls/hr IV ONCE ONE Stop: 08/28/17 15:32 Diltiazem HCl 100 mg/ Dextrose 120 mls @ 0 mls/hr IV DIRECT PATRICK [employer] (Atrovent) 0.5 mg IH TIDRT PATRICK Last Admin: 08/28/17 07:28 Dose: Not Given Lorazepam (Ativan) 1 mg IV Q3HR PRN PRN Reason: Agitation Last Admin: 08/28/17 10:30 Dose: 1 mg Sodium Chloride (Sodium Chloride Flush Syringe 10 Ml) 10 ml IV BID [facility] Last Admin: 08/28/17 02:04 Dose: Not Given Sodium Chloride (Sodium Chloride Flush Syringe 10 Ml) 10 ml IV PRN PRN PRN Reason: LINE FLUSH Sodium Chloride (Nacl 0.9%) 2,000 ml IR DIRECT PATRICK Last Admin: 08/28/17 06:28 Dose: 2,000 ml Objective Vital Signs - 12hr 08/28/17 08/28/17 08/28/17 02:30 02:45 03:01 Temperature Pulse Rate 121 H 114 H 115 H Pulse Rate [ From Monitor] Respiratory 18 20 26 H Rate Blood Pressure 105/63 116/90 116/90 O2 Sat by Pulse 100 Oximetry 08/28/17 08/28/17 08/28/17 03:15 03:31 03:45 Temperature Pulse Rate 101 H 127 H 122 H Pulse Rate [ From Monitor] Respiratory 18 18 21 Rate Blood Pressure 110/72 119/62 119/62 O2 Sat by Pulse 97 Oximetry 08/28/17 08/28/17 08/28/17 03:58 04:00 04:15 Temperature Pulse Rate 114 H 123 H 126 H Pulse Rate [ 123 H From Monitor] Respiratory 18 22 Rate Blood Pressure 122/65 122/65 122/65 O2 Sat by Pulse 100 98 100 Oximetry 08/28/17 08/28/17 08/28/17 04:31 04:45 05:00 Temperature Pulse Rate 124 H 130 H 117 H Pulse Rate [ From Monitor] Respiratory 15 9 L Rate Blood Pressure 96/57 96/57 O2 Sat by Pulse 97 99 Oximetry 08/28/17 08/28/17 08/28/17 05:01 05:15 05:31 Temperature Pulse Rate 117 H 115 H 126 H Pulse Rate [ From Monitor] Respiratory 19 18 19 Rate Blood Pressure 113/59 116/77 123/72 O2 Sat by Pulse 99 100 100 Oximetry 08/28/17 08/28/17 08/28/17 05:45 06:00 06:34 Temperature Pulse Rate 111 H 119 H 134 H Pulse Rate [ 124 H From Monitor] Respiratory 22 20 Rate Blood Pressure 123/72 101/71 112/58 O2 Sat by Pulse 99 Oximetry 08/28/17 08/28/17 08/28/17 07:24 08:00 08:26 Temperature 98.6 F Pulse Rate 132 H 140 H Pulse Rate [ From Monitor] Respiratory Rate Blood Pressure 159/117 117/77 O2 Sat by Pulse 99 Oximetry 08/28/17 08/28/17 08/28/17 08:28 12:00 12:34 Temperature 99.6 F Pulse Rate 142 H 125 H Pulse Rate [ From Monitor] Respiratory Rate Blood Pressure 94/43 O2 Sat by Pulse 100 Oximetry Constitutional: other (critically ill on vent) Eyes: non-icteric Neck: supple Effort: normal Ascultation: Bilateral: other (coarse BS bilaterally) Cardiovascular: irregular rhythm (no mrg) Gastrointestinal: hypoactive bowel sounds, soft, non-tender, other (distended; minimal output from JIM drains when I saw him) Extremities: no cyanosis, no edema, pink and warm Neurologic: unable to assess (due to sedation) Psychiatric: other (unable to assess) CBC and BMP: 08/28/17 12:10 08/28/17 12:10 ABG, PT/INR, D-dimer: ABG POC ABG pH 7.398 (7.35-7.45) 08/28/17 04:16 POC ABG pCO2 39.8 (35-45) 08/28/17 04:16 POC ABG pO2 110 (80-105) H 08/28/17 04:16 POC ABG HCO3 24.6 08/28/17 04:16 POC ABG Total CO2 26 08/28/17 04:16 POC ABG O2 Sat 98 08/28/17 04:16 PT/INR, D-dimer PT 22.5 Sec. (12.2-14.9) H 08/28/17 12:10 INR 1.85 (0.87-1.13) H 08/28/17 12:10 Abnormal lab findings: Abnormal Labs 08/23/17 08/23/17 08/23/17 02:54 02:54 02:54 WBC Hgb 10.7 L Hct 33.8 L MCV 71 L MCH 23 L MCHC RDW 22.8 H Lymph % (Auto) [place] % (Auto) 12.4 H Lymph # [place] # Seg Neutrophils % Seg Neuts % (Manual) Lymphocytes % (Manual) Monocytes % (Manual) Seg Neutrophils # Seg Neutrophils # Man Lymphocytes # (Manual) Monocytes # (Manual) PT INR POC ABG pH POC ABG pO2 Sodium Chloride Carbon Dioxide BUN 28 H Creatinine Glucose POC Glucose Calcium Total Bilirubin CK-MB (CK-2) Troponin T 0.077 H NT-Pro-B Natriuret Pep 69253 H Total Protein Albumin HDL Cholesterol 36 L Crossmatch 08/23/17 08/23/17 08/23/17 05:03 05:13 10:56 WBC Hgb Hct MCV MCH MCHC RDW Lymph % (Auto) [place] % (Auto) Lymph # [place] # Seg Neutrophils % Seg Neuts % (Manual) Lymphocytes % (Manual) Monocytes % (Manual) Seg Neutrophils # Seg Neutrophils # Man Lymphocytes # (Manual) Monocytes # (Manual) PT 15.5 H INR 1.17 H POC ABG pH POC ABG pO2 Sodium Chloride Carbon Dioxide BUN Creatinine Glucose POC Glucose Calcium Total Bilirubin CK-MB (CK-2) 4.4 H 4.4 H Troponin T 0.062 H 0.077 H D NT-Pro-B Natriuret Pep Total Protein Albumin HDL Cholesterol Crossmatch 08/23/17 08/24/17 08/24/17 20:28 04:00 04:00 WBC Hgb 11.1 L Hct 34.4 L MCV 71 L MCH 23 L MCHC RDW 22.5 H Lymph % (Auto) 5.6 L [place] % (Auto) 9.4 H Lymph # 0.6 L [place] # 1.0 H Seg Neutrophils % 84.8 H Seg Neuts % (Manual) Lymphocytes % (Manual) Monocytes % (Manual) Seg Neutrophils # 9.2 H Seg Neutrophils # Man Lymphocytes # (Manual) Monocytes # (Manual) PT INR POC ABG pH POC ABG pO2 52 L Sodium 146 H D Chloride Carbon Dioxide BUN 35 H Creatinine 1.8 H Glucose POC Glucose Calcium Total Bilirubin CK-MB (CK-2) Troponin T NT-Pro-B Natriuret Pep Total Protein Albumin HDL Cholesterol Crossmatch 08/25/17 08/25/17 08/26/17 Unknown Unknown 04:20 WBC Hgb 10.7 L 10.2 L Hct 33.5 L 31.7 L MCV 70 L 70 L MCH 23 L 23 L MCHC RDW 22.5 H 22.2 H Lymph % (Auto) [place] % (Auto) Lymph # [place] # Seg Neutrophils % Seg Neuts % (Manual) Lymphocytes % (Manual) Monocytes % (Manual) Seg Neutrophils # Seg Neutrophils # Man Lymphocytes # (Manual) Monocytes # (Manual) PT INR POC ABG pH POC ABG pO2 Sodium Chloride Carbon Dioxide 31 H BUN 37 H Creatinine 1.6 H Glucose POC Glucose Calcium Total Bilirubin CK-MB (CK-2) Troponin T NT-Pro-B Natriuret Pep Total Protein Albumin HDL Cholesterol Crossmatch 08/26/17 08/27/17 08/27/17 04:20 03:29 06:50 WBC Hgb 9.7 L Hct 30.7 L MCV 71 L MCH 23 L MCHC RDW 21.3 H Lymph % (Auto) [place] % (Auto) Lymph # [place] # Seg Neutrophils % Seg Neuts % (Manual) Lymphocytes % (Manual) Monocytes % (Manual) Seg Neutrophils # Seg Neutrophils # Man Lymphocytes # (Manual) Monocytes # (Manual) PT INR POC ABG pH POC ABG pO2 Sodium Chloride 95.6 L Carbon Dioxide 36 H BUN 30 H Creatinine Glucose 112 H POC Glucose 146 H Calcium Total Bilirubin CK-MB (CK-2) Troponin T NT-Pro-B Natriuret Pep Total Protein Albumin HDL Cholesterol Crossmatch 08/27/17 08/27/17 08/27/17 06:50 09:12 15:40 WBC Hgb Hct MCV MCH MCHC RDW Lymph % (Auto) [place] % (Auto) Lymph # [place] # Seg Neutrophils % Seg Neuts % (Manual) Lymphocytes % (Manual) Monocytes % (Manual) Seg Neutrophils # Seg Neutrophils # Man Lymphocytes # (Manual) Monocytes # (Manual) PT 22.6 H INR 1.86 H POC ABG pH POC ABG pO2 Sodium Chloride 96.9 L Carbon Dioxide BUN 32 H Creatinine 1.9 H D Glucose 115 H POC Glucose 115 H Calcium Total Bilirubin CK-MB (CK-2) Troponin T NT-Pro-B Natriuret Pep Total Protein Albumin HDL Cholesterol Crossmatch 08/27/17 08/28/17 08/28/17 20:03 01:04 02:40 WBC Hgb Hct MCV MCH MCHC RDW Lymph % (Auto) [place] % (Auto) Lymph # [place] # Seg Neutrophils % Seg Neuts % (Manual) Lymphocytes % (Manual) Monocytes % (Manual) Seg Neutrophils # Seg Neutrophils # Man Lymphocytes # (Manual) Monocytes # (Manual) PT INR POC ABG pH 7.328 L POC ABG pO2 Sodium 135 L Chloride 97.6 L Carbon Dioxide BUN 37 H Creatinine 2.5 H Glucose 127 H POC Glucose Calcium 7.5 L Total Bilirubin CK-MB (CK-2) Troponin T NT-Pro-B Natriuret Pep Total Protein Albumin HDL Cholesterol Crossmatch See Detail 08/28/17 08/28/17 08/28/17 02:40 04:16 12:10 WBC 12.4 H 15.6 H Hgb 10.8 L 9.9 L Hct 34.5 L 31.2 L MCV 74 L 74 L MCH 23 L 23 L MCHC 31 L RDW 23.6 H 23.2 H Lymph % (Auto) 4.0 L [place] % (Auto) 8.8 H Lymph # 0.5 L [place] # 1.1 H Seg Neutrophils % 87.0 H Seg Neuts % (Manual) 89.0 H Lymphocytes % (Manual) 3.0 L Monocytes % (Manual) 8.0 H Seg Neutrophils # 10.8 H Seg Neutrophils # Man 13.9 H Lymphocytes # (Manual) 0.5 L Monocytes # (Manual) 1.2 H PT INR POC ABG pH POC ABG pO2 110 H Sodium Chloride Carbon Dioxide BUN Creatinine Glucose POC Glucose Calcium Total Bilirubin CK-MB (CK-2) Troponin T NT-Pro-B Natriuret Pep Total Protein Albumin HDL Cholesterol Crossmatch 08/28/17 08/28/17 12:10 12:10 WBC Hgb Hct MCV MCH MCHC RDW Lymph % (Auto) [place] % (Auto) Lymph # [place] # Seg Neutrophils % Seg Neuts % (Manual) Lymphocytes % (Manual) Monocytes % (Manual) Seg Neutrophils # Seg Neutrophils # Man Lymphocytes # (Manual) Monocytes # (Manual) PT 22.5 H INR 1.85 H POC ABG pH POC ABG pO2 Sodium Chloride Carbon Dioxide BUN 40 H Creatinine 2.4 H Glucose 118 H POC Glucose Calcium 7.3 L Total Bilirubin 1.40 H CK-MB (CK-2) Troponin T NT-Pro-B Natriuret Pep Total Protein 5.3 L Albumin 2.1 L HDL Cholesterol Crossmatch Chest x-ray: report reviewed, image reviewed (cardiomegaly + clear lungs)
[2017-08-28] MEDS: PEPCID IV SCH ×2 (15:01→23:00)
[2017-08-28] MEDS: MAXIPIME/NS 2 GM/100 ML 2 GM/100 ML BAG IV SCH (15:01)
[2017-08-28 22:03] LABS: Bilirubin,Urine NEG (Negative); Blood,Urine LG (Negative); Color,Urine Yellow (Yellow); Mucus,Urine FEW /HPF; Protein,Urine <15 mg/dL mg/dL (Negative); RBC,Urine > 182.0 /HPF (0.0-6.0); Urobilinogen,Urine < 2.0 mg/dL (<2.0)
[2017-08-29] MEDS: CARDIZEM 100 MG in D5W 100 ML IV SCH ×3 (03:22→20:29)
[2017-08-29 04:13] LABS: Basophils % (Auto) 0.2 % (0.0-1.8); Hematocrit 29.8 % (35.5-45.6); Hemoglobin 9.5 gm/dl (11.8-15.2); Lymphocytes # (Auto) 0.9 K/mm3 (1.2-5.4); Lymphocytes % (Auto) 4.7 % (13.4-35.0); Mean Corpuscular HGB Conc 32 % (32-34); Mean Corpuscular Volume 73 fl (84-94); Monocytes # (Auto) 1.7 K/mm3 (0.0-0.8); Monocytes % (Auto) 9.2 % (0.0-7.3); Platelet Count 230 K/mm3 (140-440)
[2017-08-29 04:23] LABS: Mean Corpuscular Hemoglobin 23 pg (28-32)
[2017-08-29 04:25] LABS: Calcium 7.6 mg/dL (8.4-10.2)
[2017-08-29] MEDS: fentaNYL DRIP Premix 2,000 MCG/100 ML BAG IV SCH (06:07)
[2017-08-29] MEDS: NACL 0.9% 1000 ML 1,000 ML IV SCH ×2 (07:56→17:03)
[2017-08-29] MEDS: ATROVENT IH SCH ×3 (07:58→20:21)
--- NOTE | 2017-08-29 09:11 | Progress Note ---
Assessment and Plan urine clearing keep merida Subjective Date of service: 08/29/17 Principal diagnosis: afib with RVR and CHF excacerbation Objective - Constitutional Vitals: Vital Signs - 12hr 08/28/17 08/28/17 08/28/17 21:15 21:31 21:45 Temperature Pulse Rate 105 H 113 H 121 H Pulse Rate [ Anterior Upper Lobe] Respiratory 18 18 18 Rate Respiratory Rate [Anterior Upper Lobe] Respiratory Rate [Chest] Blood Pressure 90/50 90/50 90/50 O2 Sat by Pulse 100 100 100 Oximetry 08/28/17 08/28/17 08/28/17 22:01 22:15 22:31 Temperature Pulse Rate 113 H 115 H 129 H Pulse Rate [ Anterior Upper Lobe] Respiratory 18 18 19 Rate Respiratory Rate [Anterior Upper Lobe] Respiratory Rate [Chest] Blood Pressure 90/50 90/50 113/62 O2 Sat by Pulse 100 100 100 Oximetry 08/28/17 08/28/17 08/28/17 22:45 23:00 23:01 Temperature Pulse Rate 127 H 112 H 126 H Pulse Rate [ Anterior Upper Lobe] Respiratory 20 17 19 Rate Respiratory Rate [Anterior Upper Lobe] Respiratory 17 Rate [Chest] Blood Pressure 113/62 108/67 O2 Sat by Pulse 100 100 100 Oximetry 08/28/17 08/28/17 08/28/17 23:15 23:31 23:36 Temperature 98.7 F Pulse Rate 113 H 116 H 120 H Pulse Rate [ Anterior Upper Lobe] Respiratory 18 18 Rate Respiratory Rate [Anterior Upper Lobe] Respiratory Rate [Chest] Blood Pressure 129/83 88/49 88/49 O2 Sat by Pulse 100 100 100 Oximetry 08/28/17 08/28/17 08/29/17 23:45 23:55 00:01 Temperature Pulse Rate 120 H 134 H 120 H Pulse Rate [ Anterior Upper Lobe] Respiratory 18 18 20 Rate Respiratory Rate [Anterior Upper Lobe] Respiratory Rate [Chest] Blood Pressure 103/64 88/49 88/49 O2 Sat by Pulse 100 100 100 Oximetry 08/29/17 08/29/17 08/29/17 00:15 00:30 00:45 Temperature Pulse Rate 121 H 129 H 119 H Pulse Rate [ Anterior Upper Lobe] Respiratory 18 18 18 Rate Respiratory Rate [Anterior Upper Lobe] Respiratory Rate [Chest] Blood Pressure 159/128 142/78 142/78 O2 Sat by Pulse 100 100 100 Oximetry 08/29/17 08/29/17 08/29/17 01:01 01:15 01:31 Temperature Pulse Rate 135 H 136 H 119 H Pulse Rate [ Anterior Upper Lobe] Respiratory 17 14 22 Rate Respiratory Rate [Anterior Upper Lobe] Respiratory Rate [Chest] Blood Pressure 115/65 121/74 121/74 O2 Sat by Pulse 100 100 100 Oximetry 08/29/17 08/29/17 08/29/17 01:45 02:00 02:01 Temperature Pulse Rate 119 H 112 H 119 H Pulse Rate [ Anterior Upper Lobe] Respiratory 18 15 Rate Respiratory Rate [Anterior Upper Lobe] Respiratory Rate [Chest] Blood Pressure 130/75 124/66 O2 Sat by Pulse 100 100 100 Oximetry 08/29/17 08/29/17 08/29/17 02:15 02:31 02:45 Temperature Pulse Rate 110 H 108 H 123 H Pulse Rate [ Anterior Upper Lobe] Respiratory 18 19 13 Rate Respiratory Rate [Anterior Upper Lobe] Respiratory Rate [Chest] Blood Pressure 124/66 124/66 81/43 O2 Sat by Pulse 100 100 100 Oximetry 08/29/17 08/29/17 08/29/17 03:01 03:15 03:22 Temperature Pulse Rate 114 H 123 H 121 H Pulse Rate [ Anterior Upper Lobe] Respiratory 18 19 Rate Respiratory Rate [Anterior Upper Lobe] Respiratory Rate [Chest] Blood Pressure 134/74 134/74 134/74 O2 Sat by Pulse 100 100 Oximetry 08/29/17 08/29/17 08/29/17 03:31 03:45 04:00 Temperature 97.6 F Pulse Rate 122 H 129 H Pulse Rate [ Anterior Upper Lobe] Respiratory 10 L 14 Rate Respiratory Rate [Anterior Upper Lobe] Respiratory Rate [Chest] Blood Pressure 150/87 118/77 O2 Sat by Pulse 100 100 100 Oximetry 08/29/17 08/29/17 08/29/17 04:01 04:16 04:26 Temperature Pulse Rate 130 H 133 H 120 H Pulse Rate [ Anterior Upper Lobe] Respiratory 21 22 Rate Respiratory Rate [Anterior Upper Lobe] Respiratory Rate [Chest] Blood Pressure 118/77 149/107 88/49 O2 Sat by Pulse 100 100 100 Oximetry 08/29/17 08/29/17 08/29/17 04:30 04:45 05:01 Temperature Pulse Rate 132 H 119 H 136 H Pulse Rate [ Anterior Upper Lobe] Respiratory 18 18 18 Rate Respiratory Rate [Anterior Upper Lobe] Respiratory Rate [Chest] Blood Pressure 149/107 149/107 141/92 O2 Sat by Pulse 100 100 100 Oximetry 08/29/17 08/29/17 08/29/17 05:15 05:31 05:45 Temperature Pulse Rate 120 H 105 H 115 H Pulse Rate [ Anterior Upper Lobe] Respiratory 18 18 11 L Rate Respiratory Rate [Anterior Upper Lobe] Respiratory Rate [Chest] Blood Pressure 141/92 141/92 141/92 O2 Sat by Pulse 100 100 100 Oximetry 08/29/17 08/29/17 08/29/17 06:00 06:01 06:15 Temperature Pulse Rate 110 H 100 H Pulse Rate [ Anterior Upper Lobe] Respiratory 19 18 Rate Respiratory Rate [Anterior Upper Lobe] Respiratory Rate [Chest] Blood Pressure 120/86 120/86 O2 Sat by Pulse 100 100 100 Oximetry 08/29/17 08/29/17 08/29/17 06:31 06:45 07:53 Temperature Pulse Rate 102 H 92 H 112 H Pulse Rate [ Anterior Upper Lobe] Respiratory 17 18 Rate Respiratory Rate [Anterior Upper Lobe] Respiratory Rate [Chest] Blood Pressure 111/54 110/59 112/65 O2 Sat by Pulse 100 100 99 Oximetry 08/29/17 08/29/17 08/29/17 07:56 07:59 08:00 Temperature 98.8 F Pulse Rate 102 H Pulse Rate [ 111 H Anterior Upper Lobe] Respiratory 18 Rate Respiratory 20 Rate [Anterior Upper Lobe] Respiratory Rate [Chest] Blood Pressure 112/65 O2 Sat by Pulse 100 Oximetry 08/29/17 08:10 Temperature Pulse Rate Pulse Rate [ 110 H Anterior Upper Lobe] Respiratory Rate Respiratory 20 Rate [Anterior Upper Lobe] Respiratory Rate [Chest] Blood Pressure O2 Sat by Pulse Oximetry General appearance: Present: mild distress - Respiratory Respiratory effort: labored - Labs CBC & Chem 7: 08/29/17 03:30 08/29/17 03:30 Labs: Abnormal lab results 08/27/17 08/28/17 08/28/17 Range/Units 20:03 12:10 12:10 WBC 15.6 H (4.5-11.0) K/mm3 Hgb 9.9 L (11.8-15.2) gm/dl Hct 31.2 L (35.5-45.6) % MCV 74 L (84-94) fl MCH 23 L (28-32) pg RDW 23.2 H (13.2-15.2) % Lymph % (Auto) (13.4-35.0) % [place] % (Auto) (0.0-7.3) % Lymph # (1.2-5.4) K/mm3 [place] # (0.0-0.8) K/mm3 Seg Neutrophils % (40.0-70.0) % Seg Neuts % (Manual) 89.0 H (40.0-70.0) % Lymphocytes % (Manual) 3.0 L (13.4-35.0) % Monocytes % (Manual) 8.0 H (0.0-7.3) % Seg Neutrophils # (1.8-7.7) K/mm3 Seg Neutrophils # Man 13.9 H (1.8-7.7) K/mm3 Lymphocytes # (Manual) 0.5 L (1.2-5.4) K/mm3 Monocytes # (Manual) 1.2 H (0.0-0.8) K/mm3 PT 22.5 H (12.2-14.9) Sec. INR 1.85 H (0.87-1.13) POC ABG pO2 (80-105) BUN (9-20) mg/dL Creatinine (0.8-1.5) mg/dL Glucose (75-100) mg/dL POC Glucose (70-105) Lactic Acid (0.7-2.0) mmol/L Calcium (8.4-10.2) mg/dL Total Bilirubin (0.1-1.2) mg/dL Total Protein (6.3-8.2) g/dL Albumin (3.9-5) g/dL Urine WBC (Auto) (0.0-6.0) /HPF Crossmatch See Detail 08/28/17 08/28/17 08/28/17 Range/Units 12:10 15:30 19:15 WBC (4.5-11.0) K/mm3 Hgb (11.8-15.2) gm/dl Hct (35.5-45.6) % MCV (84-94) fl MCH (28-32) pg RDW (13.2-15.2) % Lymph % (Auto) (13.4-35.0) % [place] % (Auto) (0.0-7.3) % Lymph # (1.2-5.4) K/mm3 [place] # (0.0-0.8) K/mm3 Seg Neutrophils % (40.0-70.0) % Seg Neuts % (Manual) (40.0-70.0) % Lymphocytes % (Manual) (13.4-35.0) % Monocytes % (Manual) (0.0-7.3) % Seg Neutrophils # (1.8-7.7) K/mm3 Seg Neutrophils # Man (1.8-7.7) K/mm3 Lymphocytes # (Manual) (1.2-5.4) K/mm3 Monocytes # (Manual) (0.0-0.8) K/mm3 PT (12.2-14.9) Sec. INR (0.87-1.13) POC ABG pO2 (80-105) BUN 40 H (9-20) mg/dL Creatinine 2.4 H (0.8-1.5) mg/dL Glucose 118 H (75-100) mg/dL POC Glucose 125 H (70-105) Lactic Acid 2.90 H* (0.7-2.0) mmol/L Calcium 7.3 L (8.4-10.2) mg/dL Total Bilirubin 1.40 H (0.1-1.2) mg/dL Total Protein 5.3 L (6.3-8.2) g/dL Albumin 2.1 L (3.9-5) g/dL Urine WBC (Auto) (0.0-6.0) /HPF Crossmatch 08/28/17 08/29/17 08/29/17 Range/Units 21:00 03:30 03:30 WBC 18.9 H (4.5-11.0) K/mm3 Hgb 9.5 L (11.8-15.2) gm/dl Hct 29.8 L (35.5-45.6) % MCV 73 L (84-94) fl MCH 23 L (28-32) pg RDW 23.0 H (13.2-15.2) % Lymph % (Auto) 4.7 L (13.4-35.0) % [place] % (Auto) 9.2 H (0.0-7.3) % Lymph # 0.9 L (1.2-5.4) K/mm3 [place] # 1.7 H (0.0-0.8) K/mm3 Seg Neutrophils % 85.9 H (40.0-70.0) % Seg Neuts % (Manual) (40.0-70.0) % Lymphocytes % (Manual) (13.4-35.0) % Monocytes % (Manual) (0.0-7.3) % Seg Neutrophils # 16.2 H (1.8-7.7) K/mm3 Seg Neutrophils # Man (1.8-7.7) K/mm3 Lymphocytes # (Manual) (1.2-5.4) K/mm3 Monocytes # (Manual) (0.0-0.8) K/mm3 PT (12.2-14.9) Sec. INR (0.87-1.13) POC ABG pO2 (80-105) BUN 46 H (9-20) mg/dL Creatinine 1.7 H (0.8-1.5) mg/dL Glucose 121 H (75-100) mg/dL POC Glucose (70-105) Lactic Acid (0.7-2.0) mmol/L Calcium 7.6 L (8.4-10.2) mg/dL Total Bilirubin (0.1-1.2) mg/dL Total Protein (6.3-8.2) g/dL Albumin (3.9-5) g/dL Urine WBC (Auto) 43.0 H (0.0-6.0) /HPF Crossmatch 08/29/17 Range/Units 04:10 WBC (4.5-11.0) K/mm3 Hgb (11.8-15.2) gm/dl Hct (35.5-45.6) % MCV (84-94) fl MCH (28-32) pg RDW (13.2-15.2) % Lymph % (Auto) (13.4-35.0) % [place] % (Auto) (0.0-7.3) % Lymph # (1.2-5.4) K/mm3 [place] # (0.0-0.8) K/mm3 Seg Neutrophils % (40.0-70.0) % Seg Neuts % (Manual) (40.0-70.0) % Lymphocytes % (Manual) (13.4-35.0) % Monocytes % (Manual) (0.0-7.3) % Seg Neutrophils # (1.8-7.7) K/mm3 Seg Neutrophils # Man (1.8-7.7) K/mm3 Lymphocytes # (Manual) (1.2-5.4) K/mm3 Monocytes # (Manual) (0.0-0.8) K/mm3 PT (12.2-14.9) Sec. INR (0.87-1.13) POC ABG pO2 130 H (80-105) BUN (9-20) mg/dL Creatinine (0.8-1.5) mg/dL Glucose (75-100) mg/dL POC Glucose (70-105) Lactic Acid (0.7-2.0) mmol/L Calcium (8.4-10.2) mg/dL Total Bilirubin (0.1-1.2) mg/dL Total Protein (6.3-8.2) g/dL Albumin (3.9-5) g/dL Urine WBC (Auto) (0.0-6.0) /HPF Crossmatch
[2017-08-29] MEDS: ZESTRIL PO SCH (09:57)
[2017-08-29] MEDS: SODIUM CHLORIDE FLUSH SYRINGE 10 ML IV SCH ×2 (09:59→11:37)
[2017-08-29] MEDS: LOPRESSOR PO SCH (10:00)
[2017-08-29] MEDS: PEPCID IV SCH ×2 (11:01→22:40)
[2017-08-29] MEDS: MAXIPIME/NS 2 GM/100 ML 2 GM/100 ML BAG IV SCH ×3 (11:02→23:24)
[2017-08-29] MEDS: NACL 0.9% IR SCH ×3 (11:31→20:17)
--- NOTE | 2017-08-29 11:40 | Progress Note ---
Subjective Narrative: Seen yesterday , still entubated abd soft benign h/h stable , no evidence of Genaral surgical problem , wii DC NG in AM ? Objective Vital Signs - 12hr 08/28/17 08/28/17 08/29/17 23:45 23:55 00:01 Temperature Pulse Rate 120 H 134 H 120 H Pulse Rate [ Anterior Upper Lobe] Respiratory 18 18 20 Rate Respiratory Rate [Anterior Upper Lobe] Blood Pressure 103/64 88/49 88/49 O2 Sat by Pulse 100 100 100 Oximetry 08/29/17 08/29/17 08/29/17 00:15 00:30 00:45 Temperature Pulse Rate 121 H 129 H 119 H Pulse Rate [ Anterior Upper Lobe] Respiratory 18 18 18 Rate Respiratory Rate [Anterior Upper Lobe] Blood Pressure 159/128 142/78 142/78 O2 Sat by Pulse 100 100 100 Oximetry 08/29/17 08/29/17 08/29/17 01:01 01:15 01:31 Temperature Pulse Rate 135 H 136 H 119 H Pulse Rate [ Anterior Upper Lobe] Respiratory 17 14 22 Rate Respiratory Rate [Anterior Upper Lobe] Blood Pressure 115/65 121/74 121/74 O2 Sat by Pulse 100 100 100 Oximetry 08/29/17 08/29/17 08/29/17 01:45 02:00 02:01 Temperature Pulse Rate 119 H 112 H 119 H Pulse Rate [ Anterior Upper Lobe] Respiratory 18 15 Rate Respiratory Rate [Anterior Upper Lobe] Blood Pressure 130/75 124/66 O2 Sat by Pulse 100 100 100 Oximetry 08/29/17 08/29/17 08/29/17 02:15 02:31 02:45 Temperature Pulse Rate 110 H 108 H 123 H Pulse Rate [ Anterior Upper Lobe] Respiratory 18 19 13 Rate Respiratory Rate [Anterior Upper Lobe] Blood Pressure 124/66 124/66 81/43 O2 Sat by Pulse 100 100 100 Oximetry 08/29/17 08/29/17 08/29/17 03:01 03:15 03:22 Temperature Pulse Rate 114 H 123 H 121 H Pulse Rate [ Anterior Upper Lobe] Respiratory 18 19 Rate Respiratory Rate [Anterior Upper Lobe] Blood Pressure 134/74 134/74 134/74 O2 Sat by Pulse 100 100 Oximetry 08/29/17 08/29/17 08/29/17 03:31 03:45 04:00 Temperature 97.6 F Pulse Rate 122 H 129 H Pulse Rate [ Anterior Upper Lobe] Respiratory 10 L 14 Rate Respiratory Rate [Anterior Upper Lobe] Blood Pressure 150/87 118/77 O2 Sat by Pulse 100 100 100 Oximetry 08/29/17 08/29/17 08/29/17 04:01 04:16 04:26 Temperature Pulse Rate 130 H 133 H 120 H Pulse Rate [ Anterior Upper Lobe] Respiratory 21 22 Rate Respiratory Rate [Anterior Upper Lobe] Blood Pressure 118/77 149/107 88/49 O2 Sat by Pulse 100 100 100 Oximetry 08/29/17 08/29/17 08/29/17 04:30 04:45 05:01 Temperature Pulse Rate 132 H 119 H 136 H Pulse Rate [ Anterior Upper Lobe] Respiratory 18 18 18 Rate Respiratory Rate [Anterior Upper Lobe] Blood Pressure 149/107 149/107 141/92 O2 Sat by Pulse 100 100 100 Oximetry 08/29/17 08/29/17 08/29/17 05:15 05:31 05:45 Temperature Pulse Rate 120 H 105 H 115 H Pulse Rate [ Anterior Upper Lobe] Respiratory 18 18 11 L Rate Respiratory Rate [Anterior Upper Lobe] Blood Pressure 141/92 141/92 141/92 O2 Sat by Pulse 100 100 100 Oximetry 08/29/17 08/29/17 08/29/17 06:00 06:01 06:15 Temperature Pulse Rate 110 H 100 H Pulse Rate [ Anterior Upper Lobe] Respiratory 19 18 Rate Respiratory Rate [Anterior Upper Lobe] Blood Pressure 120/86 120/86 O2 Sat by Pulse 100 100 100 Oximetry 08/29/17 08/29/17 08/29/17 06:31 06:45 07:01 Temperature Pulse Rate 102 H 92 H 96 H Pulse Rate [ Anterior Upper Lobe] Respiratory 17 18 12 Rate Respiratory Rate [Anterior Upper Lobe] Blood Pressure 111/54 110/59 110/59 O2 Sat by Pulse 100 100 100 Oximetry 08/29/17 08/29/17 08/29/17 07:15 07:31 07:45 Temperature Pulse Rate 115 H 117 H 107 H Pulse Rate [ Anterior Upper Lobe] Respiratory 18 18 18 Rate Respiratory Rate [Anterior Upper Lobe] Blood Pressure 107/57 95/48 112/65 O2 Sat by Pulse 100 100 100 Oximetry 08/29/17 08/29/17 08/29/17 07:53 07:56 07:59 Temperature Pulse Rate 112 H 102 H Pulse Rate [ 111 H Anterior Upper Lobe] Respiratory 18 Rate Respiratory 20 Rate [Anterior Upper Lobe] Blood Pressure 112/65 112/65 O2 Sat by Pulse 99 100 Oximetry 08/29/17 08/29/17 08/29/17 08:00 08:01 08:10 Temperature 98.8 F Pulse Rate 101 H Pulse Rate [ 110 H Anterior Upper Lobe] Respiratory 18 Rate Respiratory 20 Rate [Anterior Upper Lobe] Blood Pressure 112/65 O2 Sat by Pulse 100 Oximetry 08/29/17 08/29/17 08/29/17 08:15 08:31 08:45 Temperature Pulse Rate 111 H 119 H 120 H Pulse Rate [ Anterior Upper Lobe] Respiratory 12 14 14 Rate Respiratory Rate [Anterior Upper Lobe] Blood Pressure 120/70 106/29 87/55 O2 Sat by Pulse 100 100 100 Oximetry 08/29/17 08/29/17 08/29/17 09:01 09:15 09:31 Temperature Pulse Rate 106 H 118 H 96 H Pulse Rate [ Anterior Upper Lobe] Respiratory 20 16 18 Rate Respiratory Rate [Anterior Upper Lobe] Blood Pressure 118/49 118/49 117/45 O2 Sat by Pulse 99 100 99 Oximetry 08/29/17 08/29/17 08/29/17 09:45 10:01 10:56 Temperature Pulse Rate 113 H 123 H 113 H Pulse Rate [ Anterior Upper Lobe] Respiratory 18 21 26 H Rate Respiratory Rate [Anterior Upper Lobe] Blood Pressure 118/52 141/63 134/51 O2 Sat by Pulse 99 99 100 Oximetry - Labs 08/29/17 03:30 08/29/17 03:30 Diabetes panel 08/28/17 08/29/17 Range/Units 12:10 03:30 Sodium 138 137 (137-145) mmol/L Potassium 4.6 4.6 (3.6-5.0) mmol/L Chloride 101.2 101.9 (98-107) mmol/L Carbon Dioxide 25 26 (22-30) mmol/L BUN 40 H 46 H (9-20) mg/dL Creatinine 2.4 H 1.7 H (0.8-1.5) mg/dL Glucose 118 H 121 H (75-100) mg/dL Calcium 7.3 L 7.6 L (8.4-10.2) mg/dL AST 32 (5-40) units/L ALT 16 (7-56) units/L Alkaline Phosphatase 42 (35-129) units/L Total Protein 5.3 L (6.3-8.2) g/dL Albumin 2.1 L (3.9-5) g/dL Calcium panel 08/28/17 08/29/17 Range/Units 12:10 03:30 Calcium 7.3 L 7.6 L (8.4-10.2) mg/dL Phosphorus 3.60 (2.5-4.5) mg/dL Albumin 2.1 L (3.9-5) g/dL Pituitary panel 08/28/17 08/29/17 Range/Units 12:10 03:30 Sodium 138 137 (137-145) mmol/L Potassium 4.6 4.6 (3.6-5.0) mmol/L Chloride 101.2 101.9 (98-107) mmol/L Carbon Dioxide 25 26 (22-30) mmol/L BUN 40 H 46 H (9-20) mg/dL Creatinine 2.4 H 1.7 H (0.8-1.5) mg/dL Glucose 118 H 121 H (75-100) mg/dL Calcium 7.3 L 7.6 L (8.4-10.2) mg/dL Adrenal panel 08/28/17 08/29/17 Range/Units 12:10 03:30 Sodium 138 137 (137-145) mmol/L Potassium 4.6 4.6 (3.6-5.0) mmol/L Chloride 101.2 101.9 (98-107) mmol/L Carbon Dioxide 25 26 (22-30) mmol/L BUN 40 H 46 H (9-20) mg/dL Creatinine 2.4 H 1.7 H (0.8-1.5) mg/dL Glucose 118 H 121 H (75-100) mg/dL Calcium 7.3 L 7.6 L (8.4-10.2) mg/dL Total Bilirubin 1.40 H (0.1-1.2) mg/dL AST 32 (5-40) units/L ALT 16 (7-56) units/L Alkaline Phosphatase 42 (35-129) units/L Total Protein 5.3 L (6.3-8.2) g/dL Albumin 2.1 L (3.9-5) g/dL
--- NOTE | 2017-08-29 11:45 | Consultation ---
History of Present Illness Reason for consult: central line (tthis was done after the operation in the OR , a L central line via a jugular approache while Pt was asleep .) Past History Past Medical History: other (see HPI) Past Surgical History: PTCA Social history: other (daughter is involved. He denies alcohol or illicit substance use.) Medications and Allergies Allergies Allergy/AdvReac Type Severity Reaction Status Date / Time shellfish derived Allergy Itching Verified 06/26/14 13:56 Home Medications Medication Instructions Recorded Confirmed Last Taken Type Lisinopril [Zestril TAB] 40 mg PO QDAY 06/06/15 11/04/16 Unknown History Bisacodyl [Dulcolax suppos] 10 mg RI QDAY PRN #30 supp.rect 06/15/15 11/04/16 Rx Hydrochlorothiazide [HCTZ] 25 mg PO QDAY tablet 06/15/15 11/04/16 1 Day Ago Rx ~09/24/15 Aspirin [Aspirin BABY CHEW TAB] 81 mg PO QDAY #30 tab.chew 10/12/15 11/04/16 Unknown Rx AtorvaSTATin [Lipitor] 40 mg PO QHS #30 tablet 10/12/15 11/04/16 Unknown Rx Diltiazem Cd [Cardizem CD] 240 mg PO QDAY #30 capsule 10/12/15 11/04/16 Unknown Rx Furosemide [Lasix TAB] 40 mg PO BID #60 tablet 10/12/15 11/04/16 Unknown Rx Divalproex ER [Depakote ER] 300 mg PO TID 11/04/16 11/04/16 Unknown History Docusate Sodium [Colace] 100 mg PO DAILY 11/04/16 11/04/16 Unknown History Metoprolol [Lopressor TAB] 12.5 mg PO TID 11/04/16 11/04/16 Unknown History Nitrofurantoin [place]/M-Cryst 100 mg PO Q12HR #14 capsule 11/04/16 Unknown Rx [Macrobid CAP] Potassium Chloride 10 meq PO QDAY 11/04/16 11/04/16 Unknown History Warfarin [Coumadin] 4 mg PO DAILY@1700 11/04/16 11/04/16 Unknown History risperiDONE 1.5 mg PO BID 11/04/16 11/04/16 Unknown History traZODone [Desyrel] 50 mg PO QHS 11/04/16 11/04/16 Unknown History Acetaminophen [Acetaminophen TAB] 500 mg PO Q6HR PRN #20 tablet 11/08/16 Unknown Rx Amoxicillin/K Clav Tab [Augmentin 1 tab PO Q12HR #14 tab 11/08/16 Unknown Rx 875 mg] Benzocaine/Menthol [Cepacol Sore 1 each MM Q4H PRN #1 box 11/08/16 Unknown Rx Throat Lozenge] ARIPiprazole 30 mg PO DAILY 07/25/17 07/25/17 Unknown History Aspirin BABY CHEW TAB 81 mg PO DAILY 07/25/17 07/25/17 Unknown History AtorvaSTATin 20 mg PO DAILY 07/25/17 07/25/17 Unknown History Divalproex ER 500 mg PO DAILY 07/25/17 07/25/17 Unknown History Furosemide 40 mg PO DAILY 07/25/17 07/25/17 Unknown History Lisinopril 20 mg PO DAILY 07/25/17 07/25/17 Unknown History Metoprolol 100 mg PO DAILY 07/25/17 07/25/17 Unknown History Tamsulosin 0.4 mg PO DAILY 07/25/17 07/25/17 Unknown History Xarelto 20 mg PO DAILY 07/25/17 07/25/17 Unknown History traZODone 150 mg PO BID PRN 07/25/17 07/25/17 Unknown History Diltiazem Cd [Cardizem CD] 180 mg PO QHS #30 cap 07/27/17 Unknown Rx Metoprolol Xl [Metoprolol 100 mg PO QDAY #30 tablet 07/27/17 Unknown Rx SUCCINATE ER TAB] Active Meds: Active Medications Acetaminophen (Tylenol) 650 mg PO Q4H PRN PRN Reason: Pain MILD(1-3)/Fever >100.5/IRBY Last Admin: 08/27/17 01:07 Dose: 650 mg Atorvastatin Calcium (Lipitor) 20 mg PO QHS [facility] Last Admin: 08/28/17 23:00 Dose: Not Given Famotidine (Pepcid) 20 mg IV BID [facility] Last Admin: 08/29/17 11:01 Dose: 20 mg Norepinephrine (Levophed Drip 4 Mg/Ns 250 Ml) 4 mg in 250 mls @ 7.5 mls/hr IV TITR [facility]; Protocol Fentanyl Citrate (Fentanyl Drip Premix) 2,000 mcg in 100 mls @ 4.655 mls/hr IV TITR [facility]; Protocol Last Titration: 08/29/17 07:50 Dose: 0 mcg/kg/hr, 0 mls/hr Phenylephrine HCl 100 mg/ (Sodium Chloride) 100 mls @ 3 mls/hr IV TITR [facility]; Protocol Last Titration: 08/29/17 07:05 Dose: Infused Sodium Chloride (Nacl 0.9% 1000 Ml) 1,000 mls @ 125 mls/hr IV DIRECT [facility] Last Admin: 08/29/17 07:56 Dose: 125 mls/hr Diltiazem HCl 100 mg/ Dextrose 120 mls @ 0 mls/hr IV DIRECT [facility] Last Infusion: 08/29/17 03:35 Dose: 10 mls/hr Cefepime HCl (Maxipime/Ns 2 Gm/100 Ml) 2 gm in 100 mls @ 200 mls/hr IV Q12HR [facility] Last Admin: 08/29/17 11:02 Dose: 200 mls/hr Ipratropium [place] (Atrovent) 0.5 mg IH TIDRT [facility] Last Admin: 08/29/17 07:58 Dose: 0.5 mg Lorazepam (Ativan) 1 mg IV Q3HR PRN PRN Reason: Agitation Last Admin: 08/28/17 10:30 Dose: 1 mg Sodium Chloride (Sodium Chloride Flush Syringe 10 Ml) 10 ml IV BID [facility] Last Admin: 08/29/17 11:37 Dose: 10 ml Sodium Chloride (Sodium Chloride Flush Syringe 10 Ml) 10 ml IV PRN PRN PRN Reason: LINE FLUSH Sodium Chloride (Nacl 0.9%) 2,000 ml IR DIRECT [facility] Last Admin: 08/29/17 11:32 Dose: 2,000 ml Exam Vital Signs Pulse Resp Pulse Ox 120 H 29 H 96 08/23/17 02:28 08/23/17 02:28 08/23/17 02:28 Results - Labs 08/29/17 03:30 08/29/17 03:30 Abnormal lab results 08/27/17 08/28/17 08/28/17 Range/Units 20:03 12:10 12:10 WBC 15.6 H (4.5-11.0) K/mm3 Hgb 9.9 L (11.8-15.2) gm/dl Hct 31.2 L (35.5-45.6) % MCV 74 L (84-94) fl MCH 23 L (28-32) pg RDW 23.2 H (13.2-15.2) % Lymph % (Auto) (13.4-35.0) % [place] % (Auto) (0.0-7.3) % Lymph # (1.2-5.4) K/mm3 [place] # (0.0-0.8) K/mm3 Seg Neutrophils % (40.0-70.0) % Seg Neuts % (Manual) 89.0 H (40.0-70.0) % Lymphocytes % (Manual) 3.0 L (13.4-35.0) % Monocytes % (Manual) 8.0 H (0.0-7.3) % Seg Neutrophils # (1.8-7.7) K/mm3 Seg Neutrophils # Man 13.9 H (1.8-7.7) K/mm3 Lymphocytes # (Manual) 0.5 L (1.2-5.4) K/mm3 Monocytes # (Manual) 1.2 H (0.0-0.8) K/mm3 PT 22.5 H (12.2-14.9) Sec. INR 1.85 H (0.87-1.13) POC ABG pCO2 (35-45) POC ABG pO2 (80-105) BUN (9-20) mg/dL Creatinine (0.8-1.5) mg/dL Glucose (75-100) mg/dL POC Glucose (70-105) Lactic Acid (0.7-2.0) mmol/L Calcium (8.4-10.2) mg/dL Total Bilirubin (0.1-1.2) mg/dL Total Protein (6.3-8.2) g/dL Albumin (3.9-5) g/dL Urine WBC (Auto) (0.0-6.0) /HPF Crossmatch See Detail 08/28/17 08/28/17 08/28/17 Range/Units 12:10 15:30 19:15 WBC (4.5-11.0) K/mm3 Hgb (11.8-15.2) gm/dl Hct (35.5-45.6) % MCV (84-94) fl MCH (28-32) pg RDW (13.2-15.2) % Lymph % (Auto) (13.4-35.0) % [place] % (Auto) (0.0-7.3) % Lymph # (1.2-5.4) K/mm3 [place] # (0.0-0.8) K/mm3 Seg Neutrophils % (40.0-70.0) % Seg Neuts % (Manual) (40.0-70.0) % Lymphocytes % (Manual) (13.4-35.0) % Monocytes % (Manual) (0.0-7.3) % Seg Neutrophils # (1.8-7.7) K/mm3 Seg Neutrophils # Man (1.8-7.7) K/mm3 Lymphocytes # (Manual) (1.2-5.4) K/mm3 Monocytes # (Manual) (0.0-0.8) K/mm3 PT (12.2-14.9) Sec. INR (0.87-1.13) POC ABG pCO2 (35-45) POC ABG pO2 (80-105) BUN 40 H (9-20) mg/dL Creatinine 2.4 H (0.8-1.5) mg/dL Glucose 118 H (75-100) mg/dL POC Glucose 125 H (70-105) Lactic Acid 2.90 H* (0.7-2.0) mmol/L Calcium 7.3 L (8.4-10.2) mg/dL Total Bilirubin 1.40 H (0.1-1.2) mg/dL Total Protein 5.3 L (6.3-8.2) g/dL Albumin 2.1 L (3.9-5) g/dL Urine WBC (Auto) (0.0-6.0) /HPF Crossmatch 08/28/17 08/29/17 08/29/17 Range/Units 21:00 03:30 03:30 WBC 18.9 H (4.5-11.0) K/mm3 Hgb 9.5 L (11.8-15.2) gm/dl Hct 29.8 L (35.5-45.6) % MCV 73 L (84-94) fl MCH 23 L (28-32) pg RDW 23.0 H (13.2-15.2) % Lymph % (Auto) 4.7 L (13.4-35.0) % [place] % (Auto) 9.2 H (0.0-7.3) % Lymph # 0.9 L (1.2-5.4) K/mm3 [place] # 1.7 H (0.0-0.8) K/mm3 Seg Neutrophils % 85.9 H (40.0-70.0) % Seg Neuts % (Manual) (40.0-70.0) % Lymphocytes % (Manual) (13.4-35.0) % Monocytes % (Manual) (0.0-7.3) % Seg Neutrophils # 16.2 H (1.8-7.7) K/mm3 Seg Neutrophils # Man (1.8-7.7) K/mm3 Lymphocytes # (Manual) (1.2-5.4) K/mm3 Monocytes # (Manual) (0.0-0.8) K/mm3 PT (12.2-14.9) Sec. INR (0.87-1.13) POC ABG pCO2 (35-45) POC ABG pO2 (80-105) BUN 46 H (9-20) mg/dL Creatinine 1.7 H (0.8-1.5) mg/dL Glucose 121 H (75-100) mg/dL POC Glucose (70-105) Lactic Acid (0.7-2.0) mmol/L Calcium 7.6 L (8.4-10.2) mg/dL Total Bilirubin (0.1-1.2) mg/dL Total Protein (6.3-8.2) g/dL Albumin (3.9-5) g/dL Urine WBC (Auto) 43.0 H (0.0-6.0) /HPF Crossmatch 08/29/17 08/29/17 Range/Units 04:10 10:58 WBC (4.5-11.0) K/mm3 Hgb (11.8-15.2) gm/dl Hct (35.5-45.6) % MCV (84-94) fl MCH (28-32) pg RDW (13.2-15.2) % Lymph % (Auto) (13.4-35.0) % [place] % (Auto) (0.0-7.3) % Lymph # (1.2-5.4) K/mm3 [place] # (0.0-0.8) K/mm3 Seg Neutrophils % (40.0-70.0) % Seg Neuts % (Manual) (40.0-70.0) % Lymphocytes % (Manual) (13.4-35.0) % Monocytes % (Manual) (0.0-7.3) % Seg Neutrophils # (1.8-7.7) K/mm3 Seg Neutrophils # Man (1.8-7.7) K/mm3 Lymphocytes # (Manual) (1.2-5.4) K/mm3 Monocytes # (Manual) (0.0-0.8) K/mm3 PT (12.2-14.9) Sec. INR (0.87-1.13) POC ABG pCO2 34.8 L (35-45) POC ABG pO2 130 H (80-105) BUN (9-20) mg/dL Creatinine (0.8-1.5) mg/dL Glucose (75-100) mg/dL POC Glucose (70-105) Lactic Acid (0.7-2.0) mmol/L Calcium (8.4-10.2) mg/dL Total Bilirubin (0.1-1.2) mg/dL Total Protein (6.3-8.2) g/dL Albumin (3.9-5) g/dL Urine WBC (Auto) (0.0-6.0) /HPF Crossmatch Diabetes panel 08/28/17 08/29/17 Range/Units 12:10 03:30 Sodium 138 137 (137-145) mmol/L Potassium 4.6 4.6 (3.6-5.0) mmol/L Chloride 101.2 101.9 (98-107) mmol/L Carbon Dioxide 25 26 (22-30) mmol/L BUN 40 H 46 H (9-20) mg/dL Creatinine 2.4 H 1.7 H (0.8-1.5) mg/dL Glucose 118 H 121 H (75-100) mg/dL Calcium 7.3 L 7.6 L (8.4-10.2) mg/dL AST 32 (5-40) units/L ALT 16 (7-56) units/L Alkaline Phosphatase 42 (35-129) units/L Total Protein 5.3 L (6.3-8.2) g/dL Albumin 2.1 L (3.9-5) g/dL Calcium panel 08/28/17 08/29/17 Range/Units 12:10 03:30 Calcium 7.3 L 7.6 L (8.4-10.2) mg/dL Phosphorus 3.60 (2.5-4.5) mg/dL Albumin 2.1 L (3.9-5) g/dL Pituitary panel 08/28/17 08/29/17 Range/Units 12:10 03:30 Sodium 138 137 (137-145) mmol/L Potassium 4.6 4.6 (3.6-5.0) mmol/L Chloride 101.2 101.9 (98-107) mmol/L Carbon Dioxide 25 26 (22-30) mmol/L BUN 40 H 46 H (9-20) mg/dL Creatinine 2.4 H 1.7 H (0.8-1.5) mg/dL Glucose 118 H 121 H (75-100) mg/dL Calcium 7.3 L 7.6 L (8.4-10.2) mg/dL Adrenal panel 08/28/17 08/29/17 Range/Units 12:10 03:30 Sodium 138 137 (137-145) mmol/L Potassium 4.6 4.6 (3.6-5.0) mmol/L Chloride 101.2 101.9 (98-107) mmol/L Carbon Dioxide 25 26 (22-30) mmol/L BUN 40 H 46 H (9-20) mg/dL Creatinine 2.4 H 1.7 H (0.8-1.5) mg/dL Glucose 118 H 121 H (75-100) mg/dL Calcium 7.3 L 7.6 L (8.4-10.2) mg/dL Total Bilirubin 1.40 H (0.1-1.2) mg/dL AST 32 (5-40) units/L ALT 16 (7-56) units/L Alkaline Phosphatase 42 (35-129) units/L Total Protein 5.3 L (6.3-8.2) g/dL Albumin 2.1 L (3.9-5) g/dL
--- NOTE | 2017-08-29 12:18 | Progress Note ---
Assessment and Plan Assessment and plan: Acute hypoxemic respiratory failure Cont Vent per Pulm Acute on chronic diastolic heart failure Echo 04/2017 at [facility] - LVEF 45-50%, moderate RV dysfunctioin, RVSP 49 mm Hg and dilated IVC Cont diuresis per Cardiology Permanent atrial fibrillation with RVR Rate is better controlled on oral Cardizem and lopressor, Cardiology is following Sepsis Etiology likely UTI, Await blood cultures ID consult History of CAD s/p PCI to LAD (2011) low salt diet and medical management History of ascending aortic aneurysm measuring [address] 03/2016 Chronic DVT on xarelto Acute renal failure Etiology likely secondary to Sepsis/ATN Consult Nephrology Systemic Hypertension Urinary retention Urology following Non-compliance History Interval history: Events of yesterday noted Hospitalist Physical - Constitutional Vitals: Temp Pulse Resp BP Pulse Ox 98.8 F 113 H 26 H 134/51 100 08/29/17 08:00 08/29/17 10:56 08/29/17 10:56 08/29/17 10:56 08/29/17 10:56 General appearance: Present: other (orally intubated) - EENT Eyes: Present: PERRL, EOM intact ENT: hearing intact, clear oral mucosa, dentition normal - Neck Neck: Present: supple, normal ROM - Respiratory Respiratory effort: normal Respiratory: bilateral: diminished, rhonchi - Cardiovascular Rhythm: regular Heart Sounds: Present: S1 & S2. Absent: gallop, rub - Extremities Extremities: no ischemia, No edema, Full ROM - Abdominal General gastrointestinal: soft, non-tender, non-distended, normal bowel sounds - Integumentary Integumentary: Present: clear, warm, dry - Neurologic Neurologic: CNII-XII intact, moves all extremities Results - Labs CBC & Chem 7: 08/29/17 03:30 08/29/17 03:30 Labs: Laboratory Last Values WBC 18.9 K/mm3 (4.5-11.0) H 08/29/17 03:30 RBC 4.10 M/mm3 (3.65-5.03) 08/29/17 03:30 Hgb 9.5 gm/dl (11.8-15.2) L 08/29/17 03:30 Hct 29.8 % (35.5-45.6) L 08/29/17 03:30 MCV 73 fl (84-94) L 08/29/17 03:30 MCH 23 pg (28-32) L 08/29/17 03:30 MCHC 32 % (32-34) 08/29/17 03:30 RDW 23.0 % (13.2-15.2) H 08/29/17 03:30 Plt Count 230 K/mm3 (140-440) 08/29/17 03:30 Lymph % (Auto) 4.7 % (13.4-35.0) L 08/29/17 03:30 Shelby % (Auto) 9.2 % (0.0-7.3) H 08/29/17 03:30 Eos % (Auto) 0.0 % (0.0-4.3) 08/29/17 03:30 Baso % (Auto) 0.2 % (0.0-1.8) 08/29/17 03:30 Lymph # 0.9 K/mm3 (1.2-5.4) L 08/29/17 03:30 Shelby # 1.7 K/mm3 (0.0-0.8) H 08/29/17 03:30 Eos # 0.0 K/mm3 (0.0-0.4) 08/29/17 03:30 Baso # 0.0 K/mm3 (0.0-0.1) 08/29/17 03:30 Add Manual Diff Complete 08/28/17 12:10 Total Counted 100 08/28/17 12:10 Seg Neutrophils % 85.9 % (40.0-70.0) H 08/29/17 03:30 Seg Neuts % (Manual) 89.0 % (40.0-70.0) H 08/28/17 12:10 Band Neutrophils % 0 % 08/28/17 12:10 Lymphocytes % (Manual) 3.0 % (13.4-35.0) L 08/28/17 12:10 Reactive Lymphs % (Man) 0 % 08/28/17 12:10 Monocytes % (Manual) 8.0 % (0.0-7.3) H 08/28/17 12:10 Eosinophils % (Manual) 0 % (0.0-4.3) 08/28/17 12:10 Basophils % (Manual) 0 % (0.0-1.8) 08/28/17 12:10 Metamyelocytes % 0 % 08/28/17 12:10 Myelocytes % 0 % 08/28/17 12:10 Promyelocytes % 0 % 08/28/17 12:10 Blast Cells % 0 % 08/28/17 12:10 Nucleated RBC % Not Reportable 08/28/17 12:10 Seg Neutrophils # 16.2 K/mm3 (1.8-7.7) H 08/29/17 03:30 Seg Neutrophils # Man 13.9 K/mm3 (1.8-7.7) H 08/28/17 12:10 Band Neutrophils # 0.0 K/mm3 08/28/17 12:10 Lymphocytes # (Manual) 0.5 K/mm3 (1.2-5.4) L 08/28/17 12:10 Abs React Lymphs (Man) 0.0 K/mm3 08/28/17 12:10 Monocytes # (Manual) 1.2 K/mm3 (0.0-0.8) H 08/28/17 12:10 Eosinophils # (Manual) 0.0 K/mm3 (0.0-0.4) 08/28/17 12:10 Basophils # (Manual) 0.0 K/mm3 (0.0-0.1) 08/28/17 12:10 Metamyelocytes # 0.0 K/mm3 08/28/17 12:10 Myelocytes # 0.0 K/mm3 08/28/17 12:10 Promyelocytes # 0.0 K/mm3 08/28/17 12:10 Blast Cells # 0.0 K/mm3 08/28/17 12:10 WBC Morphology Not Reportable 08/28/17 12:10 Hypersegmented Neuts Not Reportable 08/28/17 12:10 Hyposegmented Neuts Not Reportable 08/28/17 12:10 Hypogranular Neuts Not Reportable 08/28/17 12:10 Smudge Cells Not Reportable 08/28/17 12:10 Toxic Granulation Not Reportable 08/28/17 12:10 Toxic Vacuolation Not Reportable 08/28/17 12:10 Dohle Bodies Not Reportable 08/28/17 12:10 Pelger-Huet Anomaly Not Reportable 08/28/17 12:10 Cande Rods Not Reportable 08/28/17 12:10 Platelet Estimate Not Reportable 08/28/17 12:10 Clumped Platelets Not Reportable 08/28/17 12:10 Plt Clumps, EDTA Not Reportable 08/28/17 12:10 Large Platelets Not Reportable 08/28/17 12:10 Giant Platelets Not Reportable 08/28/17 12:10 Platelet Satelliting Not Reportable 08/28/17 12:10 Plt Morphology Comment Not Reportable 08/28/17 12:10 RBC Morphology Normal 08/28/17 12:10 Dimorphic RBCs Not Reportable 08/28/17 12:10 Polychromasia Not Reportable 08/28/17 12:10 Hypochromasia Not Reportable 08/28/17 12:10 Poikilocytosis Not Reportable 08/28/17 12:10 Anisocytosis 1+ 08/28/17 12:10 Microcytosis Not Reportable 08/28/17 12:10 Macrocytosis Not Reportable 08/28/17 12:10 Spherocytes Not Reportable 08/28/17 12:10 Pappenheimer Bodies Not Reportable 08/28/17 12:10 Sickle Cells Not Reportable 08/28/17 12:10 Target Cells Not Reportable 08/28/17 12:10 Tear Drop Cells Not Reportable 08/28/17 12:10 Ovalocytes Not Reportable 08/28/17 12:10 Helmet Cells Not Reportable 08/28/17 12:10 Morrell-Galion Bodies Not Reportable 08/28/17 12:10 [place] Rings Not Reportable 08/28/17 12:10 Ephraim Cells Not Reportable 08/28/17 12:10 Bite Cells Not Reportable 08/28/17 12:10 Crenated Cell Not Reportable 08/28/17 12:10 Elliptocytes Not Reportable 08/28/17 12:10 Acanthocytes (Spur) Not Reportable 08/28/17 12:10 Rouleaux Not Reportable 08/28/17 12:10 Hemoglobin C Crystals Not Reportable 08/28/17 12:10 Schistocytes Not Reportable 08/28/17 12:10 Malaria parasites Not Reportable 08/28/17 12:10 Jonny Bodies Not Reportable 08/28/17 12:10 Hem Pathologist Commnt No 08/28/17 12:10 PT 22.5 Sec. (12.2-14.9) H 08/28/17 12:10 INR 1.85 (0.87-1.13) H 08/28/17 12:10 APTT 32.3 Sec. (24.2-36.6) 08/28/17 12:10 POC ABG pH 7.435 (7.35-7.45) 08/29/17 10:58 POC ABG pCO2 34.8 (35-45) L 08/29/17 10:58 POC ABG pO2 93 (80-105) 08/29/17 10:58 POC ABG HCO3 23.4 08/29/17 10:58 POC ABG Total CO2 24 08/29/17 10:58 POC ABG O2 Sat 98 08/29/17 10:58 POC ABG Base Excess -1 08/29/17 10:58 FiO2 28 % 08/29/17 10:58 Sodium 137 mmol/L (137-145) 08/29/17 03:30 Potassium 4.6 mmol/L (3.6-5.0) 08/29/17 03:30 Chloride 101.9 mmol/L (98-107) 08/29/17 03:30 Carbon Dioxide 26 mmol/L (22-30) 08/29/17 03:30 Anion Gap 14 mmol/L 08/29/17 03:30 BUN 46 mg/dL (9-20) H 08/29/17 03:30 Creatinine 1.7 mg/dL (0.8-1.5) H 08/29/17 03:30 Estimated GFR 48 ml/min 08/29/17 03:30 BUN/Creatinine Ratio 27 % 08/29/17 03:30 Glucose 121 mg/dL (75-100) H 08/29/17 03:30 POC Glucose 125 (70-105) H 08/28/17 19:15 Lactic Acid 1.80 mmol/L (0.7-2.0) 08/28/17 Unknown Calcium 7.6 mg/dL (8.4-10.2) L 08/29/17 03:30 Phosphorus 3.60 mg/dL (2.5-4.5) 08/28/17 12:10 Magnesium 1.70 mg/dL (1.7-2.3) 08/28/17 12:10 Total Bilirubin 1.40 mg/dL (0.1-1.2) H 08/28/17 12:10 AST 32 units/L (5-40) 08/28/17 12:10 ALT 16 units/L (7-56) 08/28/17 12:10 Alkaline Phosphatase 42 units/L (35-129) 08/28/17 12:10 Total Creatine Kinase 155 units/L (55-170) 08/23/17 10:56 CK-MB (CK-2) 4.4 ng/mL (0.0-4.0) H 08/23/17 10:56 CK-MB (CK-2) Rel Index 2.8 (0-4) 08/23/17 10:56 Troponin T 0.077 ng/mL (0.00-0.029) H D 08/23/17 10:56 NT-Pro-B Natriuret Pep 05443 pg/mL (0-900) H 08/23/17 02:54 Total Protein 5.3 g/dL (6.3-8.2) L 08/28/17 12:10 Albumin 2.1 g/dL (3.9-5) L 08/28/17 12:10 Albumin/Globulin Ratio 0.7 % 08/28/17 12:10 Triglycerides 69 mg/dL (2-149) 08/23/17 02:54 Cholesterol 125 mg/dL (50-199) 08/23/17 02:54 LDL Cholesterol Direct 77 mg/dL (50-130) 08/23/17 02:54 HDL Cholesterol 36 mg/dL (40-59) L 08/23/17 02:54 Cholesterol/HDL Ratio 3.47 % 08/23/17 02:54 Urine Color Yellow (Yellow) 08/28/17 21:00 Urine Turbidity Clear (Clear) 08/28/17 21:00 Urine pH 5.0 (5.0-7.0) 08/28/17 21:00 Ur Specific Gerry 1.005 (1.003-1.030) 08/28/17 21:00 Urine Protein <15 mg/dl mg/dL (Negative) 08/28/17 21:00 Urine Glucose (UA) Neg mg/dL (Negative) 08/28/17 21:00 Urine Ketones Neg mg/dL (Negative) 08/28/17 21:00 Urine Blood Lg (Negative) 08/28/17 21:00 Urine Nitrite Neg (Negative) 08/28/17 21:00 Urine Bilirubin Neg (Negative) 08/28/17 21:00 Urine Urobilinogen < 2.0 mg/dL (<2.0) 08/28/17 21:00 Ur Leukocyte Esterase Lg (Negative) 08/28/17 21:00 Urine WBC (Auto) 43.0 /HPF (0.0-6.0) H 08/28/17 21:00 Urine RBC (Auto) > 182.0 /HPF (0.0-6.0) 08/28/17 21:00 U Epithel Cells (Auto) < 1.0 /HPF (0-13.0) 08/28/17 21:00 Uric Acid Crystals 2+ 08/28/17 21:00 Urine Mucus Few /HPF 08/28/17 21:00 Blood Type B POSITIVE 08/27/17 20:03 Antibody Screen Negative 08/27/17 20:03 Crossmatch See Detail 08/27/17 20:03
--- NOTE | 2017-08-29 12:23 | Progress Note ---
Subjective - Reason for Consult Consult date: 08/29/17 Reason for consult: Psychiatry Follow-up - Chief Complaint Chief complaint: "The patient is intubated" 72-year-old AAM with a history of bipolar disorder, hypertension, bph, obesity, CHF, chronic atrial fibrillation, medical noncompliance, prior deep vein thrombosis, suspected CHRIS, chronic kidney disease 3, mild descending aortic aneurysm, measured at a stable 4.7 cm over several years, and single-vessel coronary artery disease with a patent LAD stent on a repeat cardiac catheterization 3 years ago, per the medical record. There's no changes to the patient presentation, he is still intubated. No signs of agitation. Mental Status Exam - Vital signs Last Vital Signs Temp 99.8 F H 08/29/17 12:00 Pulse 113 H 08/29/17 10:56 Resp 26 H 08/29/17 10:56 BP 134/51 08/29/17 10:56 Pulse Ox 100 08/29/17 10:56 - Exam Narrative exam: MSE could not be completed because of the patient's condition. Assessment and Plan Impression: Bipolar DO per Hx. The patient is still intubated. Recommendation/Plan: Psychiatry sign off. Reconsult once the patient is extubated.
--- NOTE | 2017-08-29 13:47 | Consultation ---
History of Present Illness - Reason for Consult Consult date: 08/29/17 sepsis Requesting physician: CARYL NUÑEZ - History of Present Illness 72 y/o male with with a history of bipolar disorder, hypertension, BPH, CKD, obesity, CHF, A fib, CAD, medical noncompliance, prior deep vein thrombosis, suspected CHRIS; admitted on 08/23/17 due to SOB. Patient is unable to provide a history due to confusion. In the ED, temp 98.1, HR 120, R 29, BP 134/100, O2 sat 77%, WBC 6.5, Hg 10.7, plat 217. Creat 1.8. BNP 14K. CXR showed vascular congestion and bibasilar atelectasis. Patient was treated for CHF exacerbation and RVR A fib initially in the ICU then transferred to the floor. By 08/24 a SP cath was placed by urology due to difficult merida placement.Noted with urinary retention unable to pass merida. By 08/27 code MET was called due to hypotension and AMS. Noted to have issues with SP cath. Patient was found to have a presumed bowel perf - free air on CT on 08/27. CT abd showed free air intraperitoneal, SP cath, high density material in the urinary bladder, prominent prostate and bilateral renal calculi. Patient was taken to the OR underwent cysto, evacuation of clots and merida placement by due to acute retention and exlap with evacuation of large amount of blood 2 L from abdominal cavity by Surgery. No bowel perf found. By noted WBC going up to 18K. UA showed 43 wbc, large LE. Microbiology: Blood cultures: 08/28 ngtd Urine cultures: 08/28 pending Respiratory cultures: 08/28 neg Current Antimicrobials: cefepime Previous Antimicrobials: Past History Past Medical History: other (see HPI) Past Surgical History: PTCA Social history: other (daughter is involved. He denies alcohol or illicit substance use.) Medications and Allergies Allergies Allergy/AdvReac Type Severity Reaction Status Date / Time shellfish derived Allergy Itching Verified 06/26/14 13:56 Home Medications Medication Instructions Recorded Confirmed Last Taken Type Lisinopril [Zestril TAB] 40 mg PO QDAY 06/06/15 11/04/16 Unknown History Bisacodyl [Dulcolax suppos] [address] QDAY PRN #30 supp.rect 06/15/15 11/04/16 Rx Hydrochlorothiazide [HCTZ] 25 mg PO QDAY tablet 06/15/15 11/04/16 1 Day Ago Rx ~09/24/15 Aspirin [Aspirin BABY CHEW TAB] 81 mg PO QDAY #30 tab.chew 10/12/15 11/04/16 Unknown Rx AtorvaSTATin [Lipitor] 40 mg PO QHS #30 tablet 10/12/15 11/04/16 Unknown Rx Diltiazem Cd [Cardizem CD] 240 mg PO QDAY #30 capsule 10/12/15 11/04/16 Unknown Rx Furosemide [Lasix TAB] 40 mg PO BID #60 tablet 10/12/15 11/04/16 Unknown Rx Divalproex ER [Depakote ER] 300 mg PO TID 11/04/16 11/04/16 Unknown History Docusate Sodium [Colace] 100 mg PO DAILY 11/04/16 11/04/16 Unknown History Metoprolol [Lopressor TAB] 12.5 mg PO TID 11/04/16 11/04/16 Unknown History Nitrofurantoin Upton/M-Cryst 100 mg PO Q12HR #14 capsule 11/04/16 Unknown Rx [Macrobid CAP] Potassium Chloride 10 meq PO QDAY 11/04/16 11/04/16 Unknown History Warfarin [Coumadin] 4 mg PO DAILY@1700 11/04/16 11/04/16 Unknown History risperiDONE 1.5 mg PO BID 11/04/16 11/04/16 Unknown History traZODone [Desyrel] 50 mg PO QHS 11/04/16 11/04/16 Unknown History Acetaminophen [Acetaminophen TAB] 500 mg PO Q6HR PRN #20 tablet 11/08/16 Unknown Rx Amoxicillin/K Clav Tab [Augmentin 1 tab PO Q12HR #14 tab 11/08/16 Unknown Rx 875 mg] Benzocaine/Menthol [Cepacol Sore 1 each MM Q4H PRN #1 box 11/08/16 Unknown Rx Throat Lozenge] ARIPiprazole 30 mg PO DAILY 07/25/17 07/25/17 Unknown History Aspirin BABY CHEW TAB 81 mg PO DAILY 07/25/17 07/25/17 Unknown History AtorvaSTATin 20 mg PO DAILY 07/25/17 07/25/17 Unknown History Divalproex ER 500 mg PO DAILY 07/25/17 07/25/17 Unknown History Furosemide 40 mg PO DAILY 07/25/17 07/25/17 Unknown History Lisinopril 20 mg PO DAILY 07/25/17 07/25/17 Unknown History Metoprolol 100 mg PO DAILY 07/25/17 07/25/17 Unknown History Tamsulosin 0.4 mg PO DAILY 07/25/17 07/25/17 Unknown History Xarelto 20 mg PO DAILY 07/25/17 07/25/17 Unknown History traZODone 150 mg PO BID PRN 07/25/17 07/25/17 Unknown History Diltiazem Cd [Cardizem CD] 180 mg PO QHS #30 cap 07/27/17 Unknown Rx Metoprolol Xl [Metoprolol 100 mg PO QDAY #30 tablet 07/27/17 Unknown Rx SUCCINATE ER TAB] Active Meds: Active Medications Acetaminophen (Tylenol) 650 mg PO Q4H PRN PRN Reason: Pain MILD(1-3)/Fever >100.5/IRBY Last Admin: 08/27/17 01:07 Dose: 650 mg Atorvastatin Calcium (Lipitor) 20 mg PO QHS PATRICK Last Admin: 08/28/17 23:00 Dose: Not Given Famotidine (Pepcid) 20 mg IV BID PATRICK Last Admin: 08/29/17 11:01 Dose: 20 mg Norepinephrine (Levophed Drip 4 Mg/Ns 250 Ml) 4 mg in 250 mls @ 7.5 mls/hr IV TITR PATRICK; Protocol Fentanyl Citrate (Fentanyl Drip Premix) 2,000 mcg in 100 mls @ 4.655 mls/hr IV TITR PATRICK; Protocol Last Titration: 08/29/17 07:50 Dose: 0 mcg/kg/hr, 0 mls/hr Phenylephrine HCl 100 mg/ (Sodium Chloride) 100 mls @ 3 mls/hr IV TITR PATRICK; Protocol Last Titration: 08/29/17 07:05 Dose: Infused Sodium Chloride (Nacl 0.9% 1000 Ml) 1,000 mls @ 125 mls/hr IV DIRECT [facility]RICK Last Admin: 08/29/17 07:56 Dose: 125 mls/hr Diltiazem HCl 100 mg/ Dextrose 120 mls @ 0 mls/hr IV DIRECT [facility] Last Admin: 08/29/17 12:28 Dose: 10 mls/hr Cefepime HCl (Maxipime/Ns 2 Gm/100 Ml) 2 gm in 100 mls @ 200 mls/hr IV Q12HR PATRICK Last Admin: 08/29/17 11:02 Dose: 200 mls/hr Ipratropium Mccammon (Atrovent) 0.5 mg IH TIDRT [facility] Last Admin: 08/29/17 07:58 Dose: 0.5 mg Lorazepam (Ativan) 1 mg IV Q3HR PRN PRN Reason: Agitation Last Admin: 08/28/17 10:30 Dose: 1 mg Sodium Chloride (Sodium Chloride Flush Syringe 10 Ml) 10 ml IV BID PATRICK Last Admin: 08/29/17 11:37 Dose: 10 ml Sodium Chloride (Sodium Chloride Flush Syringe 10 Ml) 10 ml IV PRN PRN PRN Reason: LINE FLUSH Sodium Chloride (Nacl 0.9%) 2,000 ml IR DIRECT [facility] Last Admin: 08/29/17 11:32 Dose: 2,000 ml Review of Systems ROS unobtainable: due to mental status Physical Examination - Physical Exam Narrative exam: General appearance: Alert in NAD, conversant anxious Eyes: anicteric sclerae, moist conjunctivae; no lid-lag; PERRLA HENT: Atraumatic; oropharynx limited Neck: Trachea midline; supple, no thyromegaly or lymphadenopathy Lungs: CTA, with normal respiratory effort and no intercostal retractions CV: tachy Abdomen: Soft, surg wound with dressings, drain with blood ? merida w hematuria Extremities: No peripheral edema or extremity lymphadenopathy Skin: Normal temperature, turgor and texture; no rash, ulcers or subcutaneous nodules Psych: Appropriate affect, alert and oriented to person, place and time. Neuro: alert and oriented x 3. Moving all extermities Lines: right SC TLC - Constitutional Vitals: Vital Signs Temp Pulse Resp BP Pulse Ox 99.8 F H 113 H 26 H 134/51 100 08/29/17 12:00 08/29/17 10:56 08/29/17 10:56 08/29/17 10:56 08/29/17 12:20 Temperature -Last 24 Hours Temperature 99.8 F Temperature 98.8 F Temperature 97.6 F Temperature 98.7 F Temperature 98.2 F Temperature 98.5 F Results - Labs CBC & Chem 7: 08/29/17 03:30 08/29/17 03:30 Labs: Abnormal lab results 08/27/17 08/28/17 08/28/17 Range/Units 20:03 15:30 19:15 WBC (4.5-11.0) K/mm3 Hgb (11.8-15.2) gm/dl Hct (35.5-45.6) % MCV (84-94) fl MCH (28-32) pg RDW (13.2-15.2) % Lymph % (Auto) (13.4-35.0) % [place] % (Auto) (0.0-7.3) % Lymph # (1.2-5.4) K/mm3 [place]pton # (0.0-0.8) K/mm3 Seg Neutrophils % (40.0-70.0) % Seg Neutrophils # (1.8-7.7) K/mm3 POC ABG pCO2 (35-45) POC ABG pO2 (80-105) BUN (9-20) mg/dL Creatinine (0.8-1.5) mg/dL Glucose (75-100) mg/dL POC Glucose 125 H (70-105) Lactic Acid 2.90 H* (0.7-2.0) mmol/L Calcium (8.4-10.2) mg/dL Urine WBC (Auto) (0.0-6.0) /HPF Crossmatch See Detail 08/28/17 08/29/17 08/29/17 Range/Units 21:00 03:30 03:30 WBC 18.9 H (4.5-11.0) K/mm3 Hgb 9.5 L (11.8-15.2) gm/dl Hct 29.8 L (35.5-45.6) % MCV 73 L (84-94) fl MCH 23 L (28-32) pg RDW 23.0 H (13.2-15.2) % Lymph % (Auto) 4.7 L (13.4-35.0) % [place] % (Auto) 9.2 H (0.0-7.3) % Lymph # 0.9 L (1.2-5.4) K/mm3 [place]pton # 1.7 H (0.0-0.8) K/mm3 Seg Neutrophils % 85.9 H (40.0-70.0) % Seg Neutrophils # 16.2 H (1.8-7.7) K/mm3 POC ABG pCO2 (35-45) POC ABG pO2 (80-105) BUN 46 H (9-20) mg/dL Creatinine 1.7 H (0.8-1.5) mg/dL Glucose 121 H (75-100) mg/dL POC Glucose (70-105) Lactic Acid (0.7-2.0) mmol/L Calcium 7.6 L (8.4-10.2) mg/dL Urine WBC (Auto) 43.0 H (0.0-6.0) /HPF Crossmatch 08/29/17 08/29/17 Range/Units 04:10 10:58 WBC (4.5-11.0) K/mm3 Hgb (11.8-15.2) gm/dl Hct (35.5-45.6) % MCV (84-94) fl MCH (28-32) pg RDW (13.2-15.2) % Lymph % (Auto) (13.4-35.0) % [place]pton % (Auto) (0.0-7.3) % Lymph # (1.2-5.4) K/mm3 [place] # (0.0-0.8) K/mm3 Seg Neutrophils % (40.0-70.0) % Seg Neutrophils # (1.8-7.7) K/mm3 POC ABG pCO2 34.8 L (35-45) POC ABG pO2 130 H (80-105) BUN (9-20) mg/dL Creatinine (0.8-1.5) mg/dL Glucose (75-100) mg/dL POC Glucose (70-105) Lactic Acid (0.7-2.0) mmol/L Calcium (8.4-10.2) mg/dL Urine WBC (Auto) (0.0-6.0) /HPF Crossmatch Assessment and Plan Assessment: 1) Sepsis with transient septic shock: NOT Present on admission, manifested by tachycardia, hypotension, leukocytosis. Etiology most likely UTI. DDX bacteremia, pneumonia 2) Complicated UTI: with urinary retention -08/24/17 SP cath was placed -08/27/17 CT abd showed free air intraperitoneal, SP cath, high density material in the urinary bladder, prominent prostate and bilateral renal calculi. -08/27/17 taken to the OR for cysto, evacuation of clots and merida placement by due to acute retention and exlap with evacuation of large amount of blood 2 L from abdominal cavity by Surgery. No bowel perf found. -08/28/17 UA showed 43 wbc, large LE. 3) Intra-abdominal bleeding: from SP cath 4) A fib with RVR 5) History of bipolar disorder 6) BPH 7) Acute on CKD 8) CHF exacerbation Plan: -follow-up blood cultures, urine culture and sputum cx -continue cefepime and vancomycin renally dosed -add fluconazole for now -repeat CXR Thanks Kelly Pérez MD Infectious Diseases Specialist [facility] ([facility] M [phone] O [phone]
--- NOTE | 2017-08-29 14:07 | Progress Note ---
Assessment and Plan Imp: 1. Urinary obstruction/retention -> r/o UTI 2. SIRS, r/o sepsis 3. Acute respiratory failure, hypoxia 4. JULIÁN 5. Shock/hypotension, hopefully volume depletion but r/o sepsis 6. Afib w/ RVR Rec: 1. Cont. IVFs -> can stop if he starts on TPN 2. Off pressors 3. Afib w/ RVR per cardiology 4. Hawley-cultured, and started empiric Vanco/Cefipime 5. Extubate today as he meets all criteria 6. Surgery/Urology f/u 7. SCDs 8. H/H is stable; monitor No family present CCT 31 minutes Subjective Date of service: 08/29/17 Principal diagnosis: afib with RVR and CHF excacerbation Interval history: Doing better. Off pressors as of this AM. Tolerated PSV 10/5 for 3+ hours. Awake , follows commands, RR 20 or so, TV up to 900 mL, RSBI less than 105. Active Medications Acetaminophen (Tylenol) 650 mg PO Q4H PRN PRN Reason: Pain MILD(1-3)/Fever >100.5/IRBY Last Admin: 08/27/17 01:07 Dose: 650 mg Atorvastatin Calcium (Lipitor) 20 mg PO QHS PATRICK Last Admin: 08/28/17 23:00 Dose: Not Given Famotidine (Pepcid) 20 mg IV BID PATRICK Last Admin: 08/29/17 11:01 Dose: 20 mg Norepinephrine (Levophed Drip 4 Mg/Ns 250 Ml) 4 mg in 250 mls @ 7.5 mls/hr IV TITR PATRICK; Protocol Fentanyl Citrate (Fentanyl Drip Premix) 2,000 mcg in 100 mls @ 4.655 mls/hr IV TITR PATRICK; Protocol Last Titration: 08/29/17 07:50 Dose: 0 mcg/kg/hr, 0 mls/hr Phenylephrine HCl 100 mg/ (Sodium Chloride) 100 mls @ 3 mls/hr IV TITR PATRICK; Protocol Last Titration: 08/29/17 07:05 Dose: Infused Sodium Chloride (Nacl 0.9% 1000 Ml) 1,000 mls @ 125 mls/hr IV DIRECT PATRICK Last Admin: 08/29/17 07:56 Dose: 125 mls/hr Diltiazem HCl 100 mg/ Dextrose 120 mls @ 0 mls/hr IV DIRECT PATRICK Last Admin: 08/29/17 12:28 Dose: 10 mls/hr Cefepime HCl (Maxipime/Ns 2 Gm/100 Ml) 2 gm in 100 mls @ 200 mls/hr IV Q12HR PATRICK Last Admin: 08/29/17 11:02 Dose: 200 mls/hr Ipratropium [place] (Atrovent) 0.5 mg IH TIDRT PATRICK Last Admin: 08/29/17 07:58 Dose: 0.5 mg Lorazepam (Ativan) 1 mg IV Q3HR PRN PRN Reason: Agitation Last Admin: 08/28/17 10:30 Dose: 1 mg Sodium Chloride (Sodium Chloride Flush Syringe 10 Ml) 10 ml IV BID PATRICK Last Admin: 08/29/17 11:37 Dose: 10 ml Sodium Chloride (Sodium Chloride Flush Syringe 10 Ml) 10 ml IV PRN PRN PRN Reason: LINE FLUSH Sodium Chloride (Nacl 0.9%) 2,000 ml IR DIRECT PATRICK Last Admin: 08/29/17 11:32 Dose: 2,000 ml Objective Vital Signs - 12hr 08/29/17 08/29/17 08/29/17 02:15 02:31 02:45 Temperature Pulse Rate 110 H 108 H 123 H Pulse Rate [ Anterior Upper Lobe] Respiratory 18 19 13 Rate Respiratory Rate [Anterior Upper Lobe] Blood Pressure 124/66 124/66 81/43 O2 Sat by Pulse 100 100 100 Oximetry 08/29/17 08/29/17 08/29/17 03:01 03:15 03:22 Temperature Pulse Rate 114 H 123 H 121 H Pulse Rate [ Anterior Upper Lobe] Respiratory 18 19 Rate Respiratory Rate [Anterior Upper Lobe] Blood Pressure 134/74 134/74 134/74 O2 Sat by Pulse 100 100 Oximetry 08/29/17 08/29/17 08/29/17 03:31 03:45 04:00 Temperature 97.6 F Pulse Rate 122 H 129 H Pulse Rate [ Anterior Upper Lobe] Respiratory 10 L 14 Rate Respiratory Rate [Anterior Upper Lobe] Blood Pressure 150/87 118/77 O2 Sat by Pulse 100 100 100 Oximetry 08/29/17 08/29/17 08/29/17 04:01 04:16 04:26 Temperature Pulse Rate 130 H 133 H 120 H Pulse Rate [ Anterior Upper Lobe] Respiratory 21 22 Rate Respiratory Rate [Anterior Upper Lobe] Blood Pressure 118/77 149/107 88/49 O2 Sat by Pulse 100 100 100 Oximetry 08/29/17 08/29/17 08/29/17 04:30 04:45 05:01 Temperature Pulse Rate 132 H 119 H 136 H Pulse Rate [ Anterior Upper Lobe] Respiratory 18 18 18 Rate Respiratory Rate [Anterior Upper Lobe] Blood Pressure 149/107 149/107 141/92 O2 Sat by Pulse 100 100 100 Oximetry 08/29/17 08/29/17 08/29/17 05:15 05:31 05:45 Temperature Pulse Rate 120 H 105 H 115 H Pulse Rate [ Anterior Upper Lobe] Respiratory 18 18 11 L Rate Respiratory Rate [Anterior Upper Lobe] Blood Pressure 141/92 141/92 141/92 O2 Sat by Pulse 100 100 100 Oximetry 08/29/17 08/29/17 08/29/17 06:00 06:01 06:15 Temperature Pulse Rate 110 H 100 H Pulse Rate [ Anterior Upper Lobe] Respiratory 19 18 Rate Respiratory Rate [Anterior Upper Lobe] Blood Pressure 120/86 120/86 O2 Sat by Pulse 100 100 100 Oximetry 08/29/17 08/29/17 08/29/17 06:31 06:45 07:01 Temperature Pulse Rate 102 H 92 H 96 H Pulse Rate [ Anterior Upper Lobe] Respiratory 17 18 12 Rate Respiratory Rate [Anterior Upper Lobe] Blood Pressure 111/54 110/59 110/59 O2 Sat by Pulse 100 100 100 Oximetry 08/29/17 08/29/17 08/29/17 07:15 07:31 07:45 Temperature Pulse Rate 115 H 117 H 107 H Pulse Rate [ Anterior Upper Lobe] Respiratory 18 18 18 Rate Respiratory Rate [Anterior Upper Lobe] Blood Pressure 107/57 95/48 112/65 O2 Sat by Pulse 100 100 100 Oximetry 08/29/17 08/29/17 08/29/17 07:53 07:56 07:59 Temperature Pulse Rate 112 H 102 H Pulse Rate [ 111 H Anterior Upper Lobe] Respiratory 18 Rate Respiratory 20 Rate [Anterior Upper Lobe] Blood Pressure 112/65 112/65 O2 Sat by Pulse 99 100 Oximetry 08/29/17 08/29/17 08/29/17 08:00 08:01 08:10 Temperature 98.8 F Pulse Rate 101 H Pulse Rate [ 110 H Anterior Upper Lobe] Respiratory 18 Rate Respiratory 20 Rate [Anterior Upper Lobe] Blood Pressure 112/65 O2 Sat by Pulse 100 Oximetry 08/29/17 08/29/17 08/29/17 08:15 08:31 08:45 Temperature Pulse Rate 111 H 119 H 120 H Pulse Rate [ Anterior Upper Lobe] Respiratory 12 14 14 Rate Respiratory Rate [Anterior Upper Lobe] Blood Pressure 120/70 106/29 87/55 O2 Sat by Pulse 100 100 100 Oximetry 08/29/17 08/29/17 08/29/17 09:01 09:15 09:31 Temperature Pulse Rate 106 H 118 H 96 H Pulse Rate [ Anterior Upper Lobe] Respiratory 20 16 18 Rate Respiratory Rate [Anterior Upper Lobe] Blood Pressure 118/49 118/49 117/45 O2 Sat by Pulse 99 100 99 Oximetry 08/29/17 08/29/17 08/29/17 09:45 10:01 10:56 Temperature Pulse Rate 113 H 123 H 113 H Pulse Rate [ Anterior Upper Lobe] Respiratory 18 21 26 H Rate Respiratory Rate [Anterior Upper Lobe] Blood Pressure 118/52 141/63 134/51 O2 Sat by Pulse 99 99 100 Oximetry 08/29/17 08/29/17 12:00 12:20 Temperature 99.8 F H Pulse Rate Pulse Rate [ Anterior Upper Lobe] Respiratory Rate Respiratory Rate [Anterior Upper Lobe] Blood Pressure O2 Sat by Pulse 100 Oximetry Constitutional: other (critically ill on vent) Eyes: non-icteric Neck: supple Effort: normal Ascultation: Bilateral: other (coarse BS bilaterally) Cardiovascular: irregular rhythm (no mrg, tachy) Gastrointestinal: hypoactive bowel sounds, soft, non-tender, other (distended; minimal output from JIM drains when I saw him) Extremities: no cyanosis, no edema, pink and warm Neurologic: normal mental status, non-focal exam, pupils equal and round Psychiatric: mood appropriate, affect normal CBC and BMP: 08/29/17 03:30 08/29/17 03:30 ABG, PT/INR, D-dimer: ABG POC ABG pH 7.435 (7.35-7.45) 08/29/17 10:58 POC ABG pCO2 34.8 (35-45) L 08/29/17 10:58 POC ABG pO2 93 (80-105) 08/29/17 10:58 POC ABG HCO3 23.4 08/29/17 10:58 POC ABG Total CO2 24 07/10/18 10:58 POC ABG O2 Sat 98 08/29/17 10:58 PT/INR, D-dimer PT 22.5 Sec. (12.2-14.9) H 08/28/17 12:10 INR 1.85 (0.87-1.13) H 08/28/17 12:10 Abnormal lab findings: Abnormal Labs 08/23/17 08/23/17 08/23/17 02:54 02:54 02:54 WBC Hgb 10.7 L Hct 33.8 L MCV 71 L MCH 23 L MCHC RDW 22.8 H Lymph % (Auto) [place] % (Auto) 12.4 H Lymph # [place] # Seg Neutrophils % Seg Neuts % (Manual) Lymphocytes % (Manual) Monocytes % (Manual) Seg Neutrophils # Seg Neutrophils # Man Lymphocytes # (Manual) Monocytes # (Manual) PT INR POC ABG pH POC ABG pCO2 POC ABG pO2 Sodium Chloride Carbon Dioxide BUN 28 H Creatinine Glucose POC Glucose Lactic Acid Calcium Total Bilirubin CK-MB (CK-2) Troponin T 0.077 H NT-Pro-B Natriuret Pep 85213 H Total Protein Albumin HDL Cholesterol 36 L Urine WBC (Auto) Crossmatch 08/23/17 08/23/17 08/23/17 05:03 05:13 10:56 WBC Hgb Hct MCV MCH MCHC RDW Lymph % (Auto) [place] % (Auto) Lymph # [place] # Seg Neutrophils % Seg Neuts % (Manual) Lymphocytes % (Manual) Monocytes % (Manual) Seg Neutrophils # Seg Neutrophils # Man Lymphocytes # (Manual) Monocytes # (Manual) PT 15.5 H INR 1.17 H POC ABG pH POC ABG pCO2 POC ABG pO2 Sodium Chloride Carbon Dioxide BUN Creatinine Glucose POC Glucose Lactic Acid Calcium Total Bilirubin CK-MB (CK-2) 4.4 H 4.4 H Troponin T 0.062 H 0.077 H D NT-Pro-B Natriuret Pep Total Protein Albumin HDL Cholesterol Urine WBC (Auto) Crossmatch 08/23/17 08/24/17 08/24/17 20:28 04:00 04:00 WBC Hgb 11.1 L Hct 34.4 L MCV 71 L MCH 23 L MCHC RDW 22.5 H Lymph % (Auto) 5.6 L [place] % (Auto) 9.4 H Lymph # 0.6 L [place] # 1.0 H Seg Neutrophils % 84.8 H Seg Neuts % (Manual) Lymphocytes % (Manual) Monocytes % (Manual) Seg Neutrophils # 9.2 H Seg Neutrophils # Man Lymphocytes # (Manual) Monocytes # (Manual) PT INR POC ABG pH POC ABG pCO2 POC ABG pO2 52 L Sodium 146 H D Chloride Carbon Dioxide BUN 35 H Creatinine 1.8 H Glucose POC Glucose Lactic Acid Calcium Total Bilirubin CK-MB (CK-2) Troponin T NT-Pro-B Natriuret Pep Total Protein Albumin HDL Cholesterol Urine WBC (Auto) Crossmatch 08/25/17 08/25/17 08/26/17 Unknown Unknown 04:20 WBC Hgb 10.7 L 10.2 L Hct 33.5 L 31.7 L MCV 70 L 70 L MCH 23 L 23 L MCHC RDW 22.5 H 22.2 H Lymph % (Auto) [place] % (Auto) Lymph # [place] # Seg Neutrophils % Seg Neuts % (Manual) Lymphocytes % (Manual) Monocytes % (Manual) Seg Neutrophils # Seg Neutrophils # Man Lymphocytes # (Manual) Monocytes # (Manual) PT INR POC ABG pH POC ABG pCO2 POC ABG pO2 Sodium Chloride Carbon Dioxide 31 H BUN 37 H Creatinine 1.6 H Glucose POC Glucose Lactic Acid Calcium Total Bilirubin CK-MB (CK-2) Troponin T NT-Pro-B Natriuret Pep Total Protein Albumin HDL Cholesterol Urine WBC (Auto) Crossmatch 08/26/17 08/27/17 08/27/17 04:20 03:29 06:50 WBC Hgb 9.7 L Hct 30.7 L MCV 71 L MCH 23 L MCHC RDW 21.3 H Lymph % (Auto) [place] % (Auto) Lymph # [place] # Seg Neutrophils % Seg Neuts % (Manual) Lymphocytes % (Manual) Monocytes % (Manual) Seg Neutrophils # Seg Neutrophils # Man Lymphocytes # (Manual) Monocytes # (Manual) PT INR POC ABG pH POC ABG pCO2 POC ABG pO2 Sodium Chloride 95.6 L Carbon Dioxide 36 H BUN 30 H Creatinine Glucose 112 H POC Glucose 146 H Lactic Acid Calcium Total Bilirubin CK-MB (CK-2) Troponin T NT-Pro-B Natriuret Pep Total Protein Albumin HDL Cholesterol Urine WBC (Auto) Crossmatch 08/27/17 08/27/17 08/27/17 06:50 09:12 15:40 WBC Hgb Hct MCV MCH MCHC RDW Lymph % (Auto) [place] % (Auto) Lymph # [place] # Seg Neutrophils % Seg Neuts % (Manual) Lymphocytes % (Manual) Monocytes % (Manual) Seg Neutrophils # Seg Neutrophils # Man Lymphocytes # (Manual) Monocytes # (Manual) PT 22.6 H INR 1.86 H POC ABG pH POC ABG pCO2 POC ABG pO2 Sodium Chloride 96.9 L Carbon Dioxide BUN 32 H Creatinine 1.9 H D Glucose 115 H POC Glucose 115 H Lactic Acid Calcium Total Bilirubin CK-MB (CK-2) Troponin T NT-Pro-B Natriuret Pep Total Protein Albumin HDL Cholesterol Urine WBC (Auto) Crossmatch 08/27/17 08/28/17 08/28/17 20:03 01:04 02:40 WBC Hgb Hct MCV MCH MCHC RDW Lymph % (Auto) [place] % (Auto) Lymph # [place] # Seg Neutrophils % Seg Neuts % (Manual) Lymphocytes % (Manual) Monocytes % (Manual) Seg Neutrophils # Seg Neutrophils # Man Lymphocytes # (Manual) Monocytes # (Manual) PT INR POC ABG pH 7.328 L POC ABG pCO2 POC ABG pO2 Sodium 135 L Chloride 97.6 L Carbon Dioxide BUN 37 H Creatinine 2.5 H Glucose 127 H POC Glucose Lactic Acid Calcium 7.5 L Total Bilirubin CK-MB (CK-2) Troponin T NT-Pro-B Natriuret Pep Total Protein Albumin HDL Cholesterol Urine WBC (Auto) Crossmatch See Detail 08/28/17 08/28/17 08/28/17 02:40 04:16 12:10 WBC 12.4 H 15.6 H Hgb 10.8 L 9.9 L Hct 34.5 L 31.2 L MCV 74 L 74 L MCH 23 L 23 L MCHC 31 L RDW 23.6 H 23.2 H Lymph % (Auto) 4.0 L [place] % (Auto) 8.8 H Lymph # 0.5 L [place] # 1.1 H Seg Neutrophils % 87.0 H Seg Neuts % (Manual) 89.0 H Lymphocytes % (Manual) 3.0 L Monocytes % (Manual) 8.0 H Seg Neutrophils # 10.8 H Seg Neutrophils # Man 13.9 H Lymphocytes # (Manual) 0.5 L Monocytes # (Manual) 1.2 H PT INR POC ABG pH POC ABG pCO2 POC ABG pO2 110 H Sodium Chloride Carbon Dioxide BUN Creatinine Glucose POC Glucose Lactic Acid Calcium Total Bilirubin CK-MB (CK-2) Troponin T NT-Pro-B Natriuret Pep Total Protein Albumin HDL Cholesterol Urine WBC (Auto) Crossmatch 08/28/17 08/28/17 08/28/17 12:10 12:10 15:30 WBC Hgb Hct MCV MCH MCHC RDW Lymph % (Auto) [place] % (Auto) Lymph # [place] # Seg Neutrophils % Seg Neuts % (Manual) Lymphocytes % (Manual) Monocytes % (Manual) Seg Neutrophils # Seg Neutrophils # Man Lymphocytes # (Manual) Monocytes # (Manual) PT 22.5 H INR 1.85 H POC ABG pH POC ABG pCO2 POC ABG pO2 Sodium Chloride Carbon Dioxide BUN 40 H Creatinine 2.4 H Glucose 118 H POC Glucose Lactic Acid 2.90 H* Calcium 7.3 L Total Bilirubin 1.40 H CK-MB (CK-2) Troponin T NT-Pro-B Natriuret Pep Total Protein 5.3 L Albumin 2.1 L HDL Cholesterol Urine WBC (Auto) Crossmatch 08/28/17 08/28/17 08/29/17 19:15 21:00 03:30 WBC 18.9 H Hgb 9.5 L Hct 29.8 L MCV 73 L MCH 23 L MCHC RDW 23.0 H Lymph % (Auto) 4.7 L [place] % (Auto) 9.2 H Lymph # 0.9 L [place] # 1.7 H Seg Neutrophils % 85.9 H Seg Neuts % (Manual) Lymphocytes % (Manual) Monocytes % (Manual) Seg Neutrophils # 16.2 H Seg Neutrophils # Man Lymphocytes # (Manual) Monocytes # (Manual) PT INR POC ABG pH POC ABG pCO2 POC ABG pO2 Sodium Chloride Carbon Dioxide BUN Creatinine Glucose POC Glucose 125 H Lactic Acid Calcium Total Bilirubin CK-MB (CK-2) Troponin T NT-Pro-B Natriuret Pep Total Protein Albumin HDL Cholesterol Urine WBC (Auto) 43.0 H Crossmatch 08/29/17 08/29/17 08/29/17 03:30 04:10 10:58 WBC Hgb Hct MCV MCH MCHC RDW Lymph % (Auto) [place] % (Auto) Lymph # [place] # Seg Neutrophils % Seg Neuts % (Manual) Lymphocytes % (Manual) Monocytes % (Manual) Seg Neutrophils # Seg Neutrophils # Man Lymphocytes # (Manual) Monocytes # (Manual) PT INR POC ABG pH POC ABG pCO2 34.8 L POC ABG pO2 130 H Sodium Chloride Carbon Dioxide BUN 46 H Creatinine 1.7 H Glucose 121 H POC Glucose Lactic Acid Calcium 7.6 L Total Bilirubin CK-MB (CK-2) Troponin T NT-Pro-B Natriuret Pep Total Protein Albumin HDL Cholesterol Urine WBC (Auto) Crossmatch Chest x-ray: report reviewed, image reviewed
--- NOTE | 2017-08-29 14:13 | Progress Note ---
Assessment and Plan Acute on chronic diastolic heart failure Echo 04/2017 at [facility] - LVEF 45-50% with moderate RV dysfunctioin Permanent atrial fibrillation on IV diltiazem Rate is better controlled History of CAD s/p PCI to LAD in 2011 History of ascending aortic aneurysm measuring [address] 03/2016 Chronic DVT on xarelto as an outpatient Chronic renal failure Systemic Hypertension Non-compliance Medical therapy for heart failure with a preserved EF, coronary artery disease and atrial fibrillation as tolerated. Subjective Date of service: 08/29/17 Principal diagnosis: afib with RVR and CHF excacerbation Interval history: For planned for extubation today. Objective Vital Signs Temp Pulse Pulse Pulse Pulse Resp Resp 08/29/17 12:20 08/29/17 12:00 99.8 F H 08/29/17 10:56 113 H 26 H 08/29/17 10:01 123 H 21 08/29/17 09:45 113 H 18 08/29/17 09:31 96 H 18 08/29/17 09:15 118 H 16 08/29/17 09:01 106 H 20 08/29/17 08:45 120 H 14 08/29/17 08:31 119 H 14 08/29/17 08:15 111 H 12 08/29/17 08:10 110 H 08/29/17 08:01 101 H 18 08/29/17 08:00 98.8 F 08/29/17 07:59 111 H 08/29/17 07:56 102 H 18 08/29/17 07:53 112 H 08/29/17 07:45 107 H 18 08/29/17 07:31 117 H 18 08/29/17 07:15 115 H 18 08/29/17 07:01 96 H 12 08/29/17 06:45 92 H 18 08/29/17 06:31 102 H 17 08/29/17 06:15 100 H 18 08/29/17 06:01 110 H 19 08/29/17 06:00 08/29/17 05:45 115 H 11 L 08/29/17 05:31 105 H 18 08/29/17 05:15 120 H 18 08/29/17 05:01 136 H 18 08/29/17 04:45 119 H 18 08/29/17 04:30 132 H 18 08/29/17 04:26 120 H 08/29/17 04:16 133 H 22 08/29/17 04:01 130 H 21 08/29/17 04:00 97.6 F 08/29/17 03:45 129 H 14 08/29/17 03:31 122 H 10 L 08/29/17 03:22 121 H 08/29/17 03:15 123 H 19 08/29/17 03:01 114 H 18 08/29/17 02:45 123 H 13 08/29/17 02:31 108 H 19 08/29/17 02:15 110 H 18 08/29/17 02:01 119 H 15 08/29/17 02:00 112 H 08/29/17 01:45 119 H 18 08/29/17 01:31 119 H 22 08/29/17 01:15 136 H 14 08/29/17 01:01 135 H 17 08/29/17 00:45 119 H 18 08/29/17 00:30 129 H 18 08/29/17 00:15 121 H 18 08/29/17 00:01 120 H 20 08/28/17 23:55 134 H 18 08/28/17 23:45 120 H 18 08/28/17 23:36 120 H 08/28/17 23:31 98.7 F 116 H 18 08/28/17 23:15 113 H 18 08/28/17 23:01 126 H 19 08/28/17 23:00 112 H 17 08/28/17 22:45 127 H 20 08/28/17 22:31 129 H 19 08/28/17 22:15 115 H 18 08/28/17 22:01 113 H 18 08/28/17 21:45 121 H 18 08/28/17 21:31 113 H 18 08/28/17 21:15 105 H 18 08/28/17 21:01 118 H 19 08/28/17 21:00 121 H 17 08/28/17 20:45 120 H 19 08/28/17 20:31 120 H 21 08/28/17 20:28 112 H 17 08/28/17 20:15 112 H 116 H 18 20 08/28/17 20:01 120 H 18 08/28/17 20:00 114 H 20 08/28/17 19:58 114 H 08/28/17 19:53 98.2 F 08/28/17 19:45 116 H 18 08/28/17 19:31 121 H 18 08/28/17 19:15 127 H 18 08/28/17 19:01 125 H 18 08/28/17 18:45 138 H 18 08/28/17 18:31 139 H 19 08/28/17 18:15 150 H 17 08/28/17 18:13 132 H 08/28/17 18:01 140 H 19 08/28/17 17:45 134 H 12 08/28/17 17:31 112 H 18 08/28/17 17:15 136 H 22 08/28/17 17:01 131 H 17 08/28/17 16:45 119 H 18 08/28/17 16:30 134 H 18 08/28/17 16:15 137 H 18 08/28/17 16:01 130 H 16 08/28/17 16:00 98.5 F 132 H 08/28/17 15:45 126 H 17 08/28/17 15:30 128 H 18 08/28/17 15:15 126 H 19 08/28/17 15:01 127 H 18 08/28/17 14:45 132 H 19 08/28/17 14:31 137 H 18 08/28/17 14:15 137 H 20 Resp Resp BP Pulse Ox 08/29/17 12:20 100 08/29/17 12:00 08/29/17 10:56 134/51 100 08/29/17 10:01 141/63 99 08/29/17 09:45 118/52 99 08/29/17 09:31 117/45 99 08/29/17 09:15 118/49 100 08/29/17 09:01 118/49 99 08/29/17 08:45 87/55 100 08/29/17 08:31 106/29 100 08/29/17 08:15 120/70 100 08/29/17 08:10 20 08/29/17 08:01 112/65 100 08/29/17 08:00 08/29/17 07:59 20 08/29/17 07:56 112/65 100 08/29/17 07:53 112/65 99 08/29/17 07:45 112/65 100 08/29/17 07:31 95/48 100 08/29/17 07:15 107/57 100 08/29/17 07:01 110/59 100 08/29/17 06:45 110/59 100 08/29/17 06:31 111/54 100 08/29/17 06:15 120/86 100 08/29/17 06:01 120/86 100 08/29/17 06:00 100 08/29/17 05:45 141/92 100 08/29/17 05:31 141/92 100 08/29/17 05:15 141/92 100 08/29/17 05:01 141/92 100 08/29/17 04:45 149/107 100 08/29/17 04:30 149/107 100 08/29/17 04:26 88/49 100 08/29/17 04:16 149/107 100 08/29/17 04:01 118/77 100 08/29/17 04:00 100 08/29/17 03:45 118/77 100 08/29/17 03:31 150/87 100 08/29/17 03:22 134/74 08/29/17 03:15 134/74 100 08/29/17 03:01 134/74 100 08/29/17 02:45 81/43 100 08/29/17 02:31 124/66 100 08/29/17 02:15 124/66 100 08/29/17 02:01 124/66 100 08/29/17 02:00 100 08/29/17 01:45 130/75 100 08/29/17 01:31 121/74 100 08/29/17 01:15 121/74 100 08/29/17 01:01 115/65 100 08/29/17 00:45 142/78 100 08/29/17 00:30 142/78 100 08/29/17 00:15 159/128 100 08/29/17 00:01 88/49 100 08/28/17 23:55 88/49 100 08/28/17 23:45 103/64 100 08/28/17 23:36 88/49 100 08/28/17 23:31 88/49 100 08/28/17 23:15 129/83 100 08/28/17 23:01 108/67 100 08/28/17 23:00 17 100 08/28/17 22:45 113/62 100 08/28/17 22:31 113/62 100 08/28/17 22:15 90/50 100 08/28/17 22:01 90/50 100 08/28/17 21:45 90/50 100 08/28/17 21:31 90/50 100 08/28/17 21:15 90/50 100 08/28/17 21:01 129/78 100 08/28/17 21:00 100 08/28/17 20:45 129/78 100 08/28/17 20:31 129/78 100 08/28/17 20:28 100 08/28/17 20:15 98/60 100 08/28/17 20:01 96/66 100 08/28/17 20:00 08/28/17 19:58 96/66 100 08/28/17 19:53 08/28/17 19:45 96/66 100 08/28/17 19:31 87/66 100 08/28/17 19:15 96/75 100 08/28/17 19:01 96/75 100 08/28/17 18:45 103/58 100 08/28/17 18:31 103/58 100 08/28/17 18:15 113/73 100 08/28/17 18:13 106/63 100 08/28/17 18:01 106/63 100 08/28/17 17:45 113/73 100 08/28/17 17:31 113/73 100 08/28/17 17:15 110/30 100 08/28/17 17:01 110/30 100 08/28/17 16:45 120/86 100 08/28/17 16:30 120/86 100 08/28/17 16:15 103/53 100 08/28/17 16:01 103/53 100 08/28/17 16:00 100 08/28/17 15:45 103/53 100 08/28/17 15:30 100/51 100 08/28/17 15:15 104/67 100 08/28/17 15:01 94/59 100 08/28/17 14:45 102/55 100 08/28/17 14:31 102/55 100 08/28/17 14:15 99/55 100 - Physical Examination General: Other (intubated) HEENT: Positive: PERRL Cardiac: Positive: irregularly irregular - Labs and Meds CBC 07/10/18 Range/Units 03:30 WBC 18.9 H (4.5-11.0) K/mm3 RBC 4.10 (3.65-5.03) M/mm3 Hgb 9.5 L (11.8-15.2) gm/dl Hct 29.8 L (35.5-45.6) % Plt Count 230 (140-440) K/mm3 Lymph # 0.9 L (1.2-5.4) K/mm3 [place] # 1.7 H (0.0-0.8) K/mm3 Eos # 0.0 (0.0-0.4) K/mm3 Baso # 0.0 (0.0-0.1) K/mm3 Comprehensive Metabolic Panel 08/29/17 Range/Units 03:30 Sodium 137 (137-145) mmol/L Potassium 4.6 (3.6-5.0) mmol/L Chloride 101.9 (98-107) mmol/L Carbon Dioxide 26 (22-30) mmol/L BUN 46 H (9-20) mg/dL Creatinine 1.7 H (0.8-1.5) mg/dL Glucose 121 H (75-100) mg/dL Calcium 7.6 L (8.4-10.2) mg/dL
--- NOTE | 2017-08-29 16:41 | Consultation ---
History of Present Illness - Reason for Consult Consult date: 08/29/17 acute renal failure Requesting physician: CARYL NUÑEZ - History of Present Illness 70-year-old man with a history of A. fib on Coumadin, CHF, hypertension, DVT, coronary artery disease, previous CVA, thoracic aneurysm, and bipolar comes admitted with palpitations, shotness of brerah, PND, swollen legs, which started 2 days ago. He ran out of his medications 3 days ago. In the emergency room he was found to be in A. fib with rapid ventricular rate in the 180s and started on cardizem drip. He was also found to be in urinary retention with bladder full of clots . He had a cystoscope done . Has a [address] . Currently getting CBI . Baseline serum creatinine seems to approx 1.4 Past History Past Medical History: other (see HPI ) Past Surgical History: PTCA Social history: other (daughter is involved. He denies alcohol or illicit substance use.) Medications and Allergies Allergies Allergy/AdvReac Type Severity Reaction Status Date / Time shellfish derived Allergy Itching Verified 06/26/14 13:56 Home Medications Medication Instructions Recorded Confirmed Last Taken Type Lisinopril [Zestril TAB] 40 mg PO QDAY 06/06/15 11/04/16 Unknown History Bisacodyl [Dulcolax suppos] 10 mg MD QDAY PRN #30 supp.rect 06/15/15 11/04/16 Rx Hydrochlorothiazide [HCTZ] 25 mg PO QDAY tablet 06/15/15 11/04/16 1 Day Ago Rx ~09/24/15 Aspirin [Aspirin BABY CHEW TAB] 81 mg PO QDAY #30 tab.chew 10/12/15 11/04/16 Unknown Rx AtorvaSTATin [Lipitor] 40 mg PO QHS #30 tablet 10/12/15 11/04/16 Unknown Rx Diltiazem Cd [Cardizem CD] 240 mg PO QDAY #30 capsule 10/12/15 11/04/16 Unknown Rx Furosemide [Lasix TAB] 40 mg PO BID #60 tablet 10/12/15 11/04/16 Unknown Rx Divalproex ER [Depakote ER] 300 mg PO TID 11/04/16 11/04/16 Unknown History Docusate Sodium [Colace] 100 mg PO DAILY 11/04/16 11/04/16 Unknown History Metoprolol [Lopressor TAB] 12.5 mg PO TID 11/04/16 11/04/16 Unknown History Nitrofurantoin Appling/M-Cryst 100 mg PO Q12HR #14 capsule 11/04/16 Unknown Rx [Macrobid CAP] Potassium Chloride 10 meq PO QDAY 11/04/16 11/04/16 Unknown History Warfarin [Coumadin] 4 mg PO DAILY@1700 11/04/16 11/04/16 Unknown History risperiDONE 1.5 mg PO BID 11/04/16 11/04/16 Unknown History traZODone [Desyrel] 50 mg PO QHS 11/04/16 11/04/16 Unknown History Acetaminophen [Acetaminophen TAB] 500 mg PO Q6HR PRN #20 tablet 11/08/16 Unknown Rx Amoxicillin/K Clav Tab [Augmentin 1 tab PO Q12HR #14 tab 11/08/16 Unknown Rx 875 mg] Benzocaine/Menthol [Cepacol Sore 1 each MM Q4H PRN #1 box 11/08/16 Unknown Rx Throat Lozenge] ARIPiprazole 30 mg PO DAILY 07/25/17 07/25/17 Unknown History Aspirin BABY CHEW TAB 81 mg PO DAILY 07/25/17 07/25/17 Unknown History AtorvaSTATin 20 mg PO DAILY 07/25/17 07/25/17 Unknown History Divalproex ER 500 mg PO DAILY 07/25/17 07/25/17 Unknown History Furosemide 40 mg PO DAILY 07/25/17 07/25/17 Unknown History Lisinopril 20 mg PO DAILY 07/25/17 07/25/17 Unknown History Metoprolol 100 mg PO DAILY 07/25/17 07/25/17 Unknown History Tamsulosin 0.4 mg PO DAILY 07/25/17 07/25/17 Unknown History Xarelto 20 mg PO DAILY 07/25/17 07/25/17 Unknown History traZODone 150 mg PO BID PRN 07/25/17 07/25/17 Unknown History Diltiazem Cd [Cardizem CD] 180 mg PO QHS #30 cap 07/27/17 Unknown Rx Metoprolol Xl [Metoprolol 100 mg PO QDAY #30 tablet 07/27/17 Unknown Rx SUCCINATE ER TAB] Active Meds: Active Medications Acetaminophen (Tylenol) 650 mg PO Q4H PRN PRN Reason: Pain MILD(1-3)/Fever >100.5/IRBY Last Admin: 08/27/17 01:07 Dose: 650 mg Atorvastatin Calcium (Lipitor) 20 mg PO QHS PATRICK Last Admin: 08/28/17 23:00 Dose: Not Given Famotidine (Pepcid) 20 mg IV BID PATRICK Last Admin: 08/29/17 11:01 Dose: 20 mg Norepinephrine (Levophed Drip 4 Mg/Ns 250 Ml) 4 mg in 250 mls @ 7.5 mls/hr IV TITR PATRICK; Protocol Fentanyl Citrate (Fentanyl Drip Premix) 2,000 mcg in 100 mls @ 4.655 mls/hr IV TITR PATRICK; Protocol Last Titration: 08/29/17 07:50 Dose: 0 mcg/kg/hr, 0 mls/hr Phenylephrine HCl 100 mg/ (Sodium Chloride) 100 mls @ 3 mls/hr IV TITR PATRICK; Protocol Last Titration: 08/29/17 07:05 Dose: Infused Sodium Chloride (Nacl 0.9% 1000 Ml) 1,000 mls @ 125 mls/hr IV DIRECT PATRICK Last Admin: 08/29/17 07:56 Dose: 125 mls/hr Diltiazem HCl 100 mg/ Dextrose 120 mls @ 0 mls/hr IV DIRECT PATRICK Last Admin: 08/29/17 12:28 Dose: 10 mls/hr Cefepime HCl (Maxipime/Ns 2 Gm/100 Ml) 2 gm in 100 mls @ 200 mls/hr IV Q12HR PATRICK Last Admin: 08/29/17 11:02 Dose: 200 mls/hr Ipratropium [place] (Atrovent) 0.5 mg IH TIDRT PATRICK Last Admin: 08/29/17 14:27 Dose: Not Given Lorazepam (Ativan) 1 mg IV Q3HR PRN PRN Reason: Agitation Last Admin: 08/28/17 10:30 Dose: 1 mg Sodium Chloride (Sodium Chloride Flush Syringe 10 Ml) 10 ml IV BID PATRICK Last Admin: 08/29/17 11:37 Dose: 10 ml Sodium Chloride (Sodium Chloride Flush Syringe 10 Ml) 10 ml IV PRN PRN PRN Reason: LINE FLUSH Sodium Chloride (Nacl 0.9%) 2,000 ml IR DIRECT PATRICK Last Admin: 08/29/17 11:32 Dose: 2,000 ml Review of Systems ROS unobtainable: due to mental status Exam - Vital Signs Vital signs: Vital Signs Pulse Resp Pulse Ox 120 H 29 H 96 08/23/17 02:28 08/23/17 02:28 08/23/17 02:28 - General Appearance General appearance: well-developed, well-nourished, appears stated age EENT: PERRL, mucous membranes moist Neck: Present: neck supple, trachea midline. Absent: JVD/HJR, Masses Respiratory: Clear to Ascultation Heart: irregular, normal heart rate, S1S2, no murmurs Gastrointestinal: Present: normoactive bowel sounds, other (dressing and drain noted in RLQ ) Integumentary: other (no edema ) Results - Lab Results 08/29/17 03:30 08/29/17 03:30 Most recent lab results Calcium 7.6 mg/dL (8.4-10.2) L 08/29/17 03:30 Phosphorus 3.60 mg/dL (2.5-4.5) 08/28/17 12:10 Magnesium 1.70 mg/dL (1.7-2.3) 08/28/17 12:10 Assessment and Plan Impression * Acute on chronic renal failure * Atrial fibrilaltion * Urinary retention * Hypertension * CAD * H/O CVA Recommendation * His renal function is improving * Basline creatinine approx 1.4 * Continue IV hydration * Avoid nephrotoxins * Monitor fluid status and electrolytes closely . * thanks, Shall follow with you
[2017-08-29] MEDS: ATIVAN IV PRN (20:25)
[2017-08-30] MEDS: NACL 0.9% 1000 ML 1,000 ML IV SCH ×3 (00:57→19:51)
[2017-08-30] MEDS: DIFLUCAN 200 MG/100 ML BAG IV SCH ×2 (01:05→10:25)
[2017-08-30] MEDS: SODIUM CHLORIDE FLUSH SYRINGE 10 ML IV SCH ×2 (01:10→10:25)
[2017-08-30] MEDS ORDERED: NACL 0.9% 1,000 ML IR ONE (01:42)
[2017-08-30] MEDS: NACL 0.9% IR SCH ×3 (02:11→06:59)
[2017-08-30] MEDS ORDERED: NACL 0.9% IR PRN (02:12)
[2017-08-30] MEDS: ATIVAN IV PRN ×2 (02:17→18:30)
[2017-08-30 05:01] LABS: Basophils % (Auto) 0.1 % (0.0-1.8); Eosinophils % (Auto) 0.1 % (0.0-4.3); Hematocrit 28.9 % (35.5-45.6); Hemoglobin 9.2 gm/dl (11.8-15.2); Lymphocytes % (Auto) 6.3 % (13.4-35.0); Mean Corpuscular HGB Conc 32 % (32-34); Mean Corpuscular Volume 74 fl (84-94); Monocytes # (Auto) 1.1 K/mm3 (0.0-0.8); Platelet Count 214 K/mm3 (140-440); Red Blood Count 3.93 M/mm3 (3.65-5.03)
[2017-08-30 05:02] LABS: Mean Corpuscular Hemoglobin 23 pg (28-32); Red Cell Distribution Width 23.5 % (13.2-15.2)
[2017-08-30 07:04] LABS: BUN/Creatinine Ratio 34; Blood Urea Nitrogen 37 mg/dL (9-20); Hemolysis Index 0
[2017-08-30] MEDS: ATROVENT IH SCH ×3 (07:27→20:14)
--- NOTE | 2017-08-30 09:11 | Progress Note ---
Subjective Principal diagnosis: afib with RVR and CHF excacerbation Interval history: Patient was seen today for follow-up on multiple renal related issues Events of this hospitalization noted Vitals labs intake output medications were reviewed Social history: Reviewed Allergies: Reviewed Family history: Reviewed Physical examination HEENT: Oral mucosa moist no pallor or icterus Neck: Supple no JVD Chest: Clear to auscultation anteriorly CVS: Regular rate and rhythm S1 and S2 heard Abdomen: Soft nontender no suprapubic masses no organomegaly appreciable Extremity: Dry skin less than 1+ peripheral edema Musculoskeletal: No joint effusion noted in knees and ankle Neurological: Alert awake Dermatology: No petechial rashes Psychiatry: No evidence of any agitation and aggression noted Assessment and plan Acute on chronic renal failure; monitor renal function baseline creatinine is around 1.4 appears to be doing well avoid nephrotoxic medication His creatinine is currently normal at 1.1 which is better than his baseline Etiology of renal failure appears to be multifactorial in my opinion but renal function appears to be improving ,urinary retention bladder was full of blood clots, has had cystoscopy done and currently has a Montgomery catheter CAT scan obtained August 27; shows evidence of 5 mm nonobstructing stone in the right lower for the kidney 7 mm stone in the left mid pole of the left kidney Patient has multiple risk factors for underlying chronic kidney disease and progression over time: Phosphorus 3.6 hemoglobin 9.5 History of urinary retention;Monitor intake and output closely , has a suprapubic catheter Multiple other comorbidities including atrial fibrillation, hypertension, coronary artery disease history of prior CVA which also makes him higher risk for renovascular disease as well Will follow as needed basis Objective - Vital Signs Vital signs: Vital Signs - 12hr 08/29/17 08/29/17 08/29/17 21:15 21:31 21:45 Temperature Pulse Rate 101 H 114 H 111 H Pulse Rate [ Anterior Upper Lobe] Respiratory 16 22 33 H Rate Respiratory Rate [Anterior Upper Lobe] Blood Pressure 123/53 130/58 130/58 O2 Sat by Pulse 94 95 97 Oximetry 08/29/17 08/29/17 08/29/17 22:00 22:01 22:15 Temperature Pulse Rate 124 H 121 H 128 H Pulse Rate [ Anterior Upper Lobe] Respiratory 20 22 Rate Respiratory Rate [Anterior Upper Lobe] Blood Pressure 130/58 130/58 O2 Sat by Pulse 95 96 Oximetry 08/29/17 08/29/1718 22:31 22:45 23:01 Temperature Pulse Rate 108 H 119 H 144 H Pulse Rate [ Anterior Upper Lobe] Respiratory 13 20 21 Rate Respiratory Rate [Anterior Upper Lobe] Blood Pressure 146/65 146/65 146/65 O2 Sat by Pulse 88 97 95 Oximetry 08/29/17 08/29/17 08/29/17 23:15 23:26 23:31 Temperature Pulse Rate 102 H 139 H 112 H Pulse Rate [ Anterior Upper Lobe] Respiratory 25 H 24 18 Rate Respiratory Rate [Anterior Upper Lobe] Blood Pressure 143/77 143/77 143/77 O2 Sat by Pulse 96 99 100 Oximetry 08/29/17 08/29/17 08/30/17 23:45 23:54 00:00 Temperature 99.2 F Pulse Rate 127 H Pulse Rate [ Anterior Upper Lobe] Respiratory 25 H 31 H Rate Respiratory Rate [Anterior Upper Lobe] Blood Pressure 138/62 O2 Sat by Pulse 99 99 Oximetry 08/30/17 08/30/17 08/30/17 00:01 00:15 00:31 Temperature Pulse Rate 123 H 136 H 122 H Pulse Rate [ Anterior Upper Lobe] Respiratory 19 28 H 17 Rate Respiratory Rate [Anterior Upper Lobe] Blood Pressure 138/62 138/62 138/62 O2 Sat by Pulse 100 99 100 Oximetry 08/30/17 08/30/17 08/30/17 00:37 00:45 01:01 Temperature Pulse Rate 149 H 127 H 118 H Pulse Rate [ Anterior Upper Lobe] Respiratory 35 H 20 25 H Rate Respiratory Rate [Anterior Upper Lobe] Blood Pressure 154/103 154/103 168/89 O2 Sat by Pulse 100 100 99 Oximetry 08/30/17 08/30/17 08/30/17 01:15 01:30 01:45 Temperature Pulse Rate 139 H 120 H 125 H Pulse Rate [ Anterior Upper Lobe] Respiratory 21 29 H 22 Rate Respiratory Rate [Anterior Upper Lobe] Blood Pressure 168/89 130/80 144/66 O2 Sat by Pulse 100 100 Oximetry 08/30/17 08/30/17 08/30/17 02:00 02:15 02:30 Temperature Pulse Rate 110 H 126 H 140 H Pulse Rate [ Anterior Upper Lobe] Respiratory 19 16 17 Rate Respiratory Rate [Anterior Upper Lobe] Blood Pressure 144/66 126/72 126/72 O2 Sat by Pulse 100 100 100 Oximetry 07/01/0708/30/17 08/30/17 02:45 03:01 03:15 Temperature Pulse Rate 113 H 121 H 112 H Pulse Rate [ Anterior Upper Lobe] Respiratory 29 H 17 22 Rate Respiratory Rate [Anterior Upper Lobe] Blood Pressure 126/72 126/72 126/72 O2 Sat by Pulse 100 98 Oximetry 08/30/17 08/30/17 08/30/17 03:26 03:31 03:45 Temperature Pulse Rate 125 H 116 H 125 H Pulse Rate [ Anterior Upper Lobe] Respiratory 27 H 16 15 Rate Respiratory Rate [Anterior Upper Lobe] Blood Pressure 126/72 126/72 O2 Sat by Pulse 99 96 Oximetry 08/30/17 08/30/17 08/30/17 04:00 04:01 04:15 Temperature Pulse Rate 109 H 112 H Pulse Rate [ Anterior Upper Lobe] Respiratory 24 15 23 Rate Respiratory Rate [Anterior Upper Lobe] Blood Pressure 158/86 158/86 O2 Sat by Pulse 99 100 100 Oximetry 08/30/17 08/30/17 08/30/17 04:31 04:45 05:01 Temperature Pulse Rate 115 H 120 H 113 H Pulse Rate [ Anterior Upper Lobe] Respiratory 23 23 19 Rate Respiratory Rate [Anterior Upper Lobe] Blood Pressure 158/86 158/86 145/71 O2 Sat by Pulse 100 100 100 Oximetry 08/30/17 08/30/17 08/30/17 05:15 05:31 05:45 Temperature Pulse Rate 138 H 127 H 108 H Pulse Rate [ Anterior Upper Lobe] Respiratory 17 21 20 Rate Respiratory Rate [Anterior Upper Lobe] Blood Pressure 145/71 160/74 160/74 O2 Sat by Pulse 100 100 100 Oximetry 08/30/17 08/30/17 08/30/17 06:01 06:15 06:30 Temperature Pulse Rate 112 H 114 H 123 H Pulse Rate [ Anterior Upper Lobe] Respiratory 23 17 20 Rate Respiratory Rate [Anterior Upper Lobe] Blood Pressure 155/89 155/89 155/89 O2 Sat by Pulse 100 98 99 Oximetry 08/30/17 08/30/17 07:24 07:28 Temperature Pulse Rate 121 H Pulse Rate [ 123 H Anterior Upper Lobe] Respiratory 23 Rate Respiratory 20 Rate [Anterior Upper Lobe] Blood Pressure 155/71 O2 Sat by Pulse 100 Oximetry - Lab 08/30/17 04:00 08/30/17 04:00 Most recent lab results Calcium 8.0 mg/dL (8.4-10.2) L 08/30/17 04:00 Phosphorus 2.10 mg/dL (2.5-4.5) L 08/30/17 04:00 Magnesium 2.30 mg/dL (1.7-2.3) 08/30/17 04:00
--- NOTE | 2017-08-30 09:12 | Progress Note ---
Assessment and Plan Acute on chronic diastolic heart failure Echo 04/2017 at [facility] - LVEF 45-50% with moderate RV dysfunctioin Permanent atrial fibrillation on IV diltiazem History of CAD s/p PCI to LAD in 2011 History of ascending aortic aneurysm measuring [address] 03/2016 Chronic DVT on xarelto as an outpatient Chronic renal failure Systemic Hypertension Non-compliance Resume anticoagulation with either IV heparin or xarelto (renally dosed) if no further surgical procedures are planned. Medical therapy for heart failure with a preserved EF, coronary artery disease and atrial fibrillation as tolerated. Subjective Date of service: 08/30/17 Principal diagnosis: afib with RVR and CHF excacerbation Interval history: Patient denies chest pain and shortness of breath. No distress noted. Afib with RVR seen on telemetry. Objective Vital Signs Temp Pulse Pulse Pulse Resp Resp Resp 08/30/17 07:28 123 H 20 08/30/17 07:24 121 H 23 08/30/17 06:30 123 H 20 08/30/17 06:15 114 H 17 08/30/17 06:01 112 H 08/30/17 05:45 108 H 20 08/30/17 05:31 127 H 21 08/30/17 05:15 138 H 08/30/17 05:01 113 H 19 08/30/17 04:45 120 H 08/30/17 04:31 115 H 08/30/17 04:15 112 H 08/30/17 04:01 109 H 15 08/30/17 04:00 24 08/30/17 03:45 125 H 15 08/30/17 03:31 116 H 16 08/30/17 03:26 125 H 27 H 08/30/17 03:15 112 H 08/30/17 03:01 121 H 08/30/17 02:45 113 H 29 H 08/30/17 02:30 140 H 17 08/30/17 02:15 126 H 16 08/30/17 02:00 110 H 19 08/30/17 01:45 125 H 08/30/17 01:30 120 H 29 H 08/30/17 01:15 139 H 21 08/30/17 01:01 118 H 25 H 08/30/17 00:45 127 H 20 08/30/17 00:37 149 H 35 H 08/30/17 00:31 122 H 17 08/30/17 00:15 136 H 28 H 08/30/17 00:01 123 H 19 08/30/17 00:00 31 H 08/29/17 23:54 99.2 F 08/29/17 23:45 127 H 25 H 08/29/17 23:31 112 H 18 08/29/17 23:26 139 H 24 08/29/17 23:15 102 H 25 H 08/29/17 23:01 144 H 21 08/29/17 22:45 119 H 20 08/29/17 22:31 108 H 13 08/29/17 22:15 128 H 22 08/29/17 22:01 121 H 20 08/29/17 22:00 124 H 08/29/17 21:45 111 H 33 H 08/29/17 21:31 114 H 22 08/29/17 21:15 101 H 16 08/29/17 21:01 120 H 25 H 08/29/17 20:45 123 H 19 08/29/17 20:31 114 H 23 08/29/17 20:26 109 H 22 08/29/17 20:21 101 H 22 08/29/17 20:19 08/29/17 20:15 110 H 20 08/29/17 20:01 98 H 13 08/29/17 20:00 99.0 F 31 H 08/29/17 19:45 120 H 16 08/29/17 19:31 107 H 18 08/29/17 19:15 110 H 32 H 08/29/17 19:01 120 H 26 H 08/29/17 18:45 117 H 20 08/29/17 18:31 112 H 22 08/29/17 18:15 114 H 20 08/29/17 18:01 100 H 20 08/29/17 17:45 101 H 26 H 08/29/17 17:31 119 H 28 H 08/29/17 17:15 113 H 30 H 08/29/17 17:01 22 08/29/17 16:45 104 H 21 08/29/17 16:31 111 H 17 08/29/17 16:15 101 H 25 H 08/29/17 16:01 108 H 21 08/29/17 16:00 99.8 F H 19 08/29/17 15:45 125 H 25 H 08/29/17 15:31 123 H 21 08/29/17 15:15 117 H 20 08/29/17 15:01 136 H 14 08/29/17 14:45 117 H 28 H 08/29/17 14:31 108 H 19 08/29/17 14:15 106 H 13 08/29/17 14:01 109 H 19 08/29/17 13:45 118 H 32 H 08/29/17 13:31 111 H 37 H 08/29/17 13:15 123 H 14 08/29/17 13:01 117 H 18 08/29/17 12:45 106 H 29 H 08/29/17 12:30 120 H 22 08/29/17 12:20 18 08/29/17 12:15 104 H 21 08/29/17 12:01 115 H 17 08/29/17 12:00 99.8 F H 08/29/17 11:45 114 H 21 08/29/17 11:31 135 H 19 08/29/17 11:15 123 H 19 08/29/17 11:01 118 H 23 08/29/17 10:56 113 H 26 H 08/29/17 10:45 94 H 9 L 08/29/17 10:31 115 H 20 08/29/17 10:15 108 H 18 08/29/17 10:01 123 H 21 08/29/17 10:00 108 H 08/29/17 09:45 113 H 18 08/29/17 09:31 96 H 18 08/29/17 09:15 118 H 16 BP Pulse Ox 08/30/17 07:28 08/30/17 07:24 155/71 100 08/30/17 06:30 155/89 99 08/30/17 06:15 155/89 98 08/30/17 06:01 155/89 100 08/30/17 05:45 160/74 100 08/30/17 05:31 160/74 100 08/30/17 05:15 145/71 100 08/30/17 05:01 145/71 100 08/30/17 04:45 158/86 100 08/30/17 04:31 158/86 100 08/30/17 04:15 158/86 100 08/30/17 04:01 158/86 100 08/30/17 04:00 99 08/30/17 03:45 126/72 96 08/30/17 03:31 126/72 08/30/17 03:26 99 08/30/17 03:15 126/72 98 08/30/17 03:01 126/72 08/30/17 02:45 126/72 100 08/30/17 02:30 126/72 100 08/30/17 02:15 126/72 100 08/30/17 02:00 144/66 100 08/30/17 01:45 144/66 100 08/30/17 01:30 130/80 08/30/17 01:15 168/89 100 08/30/17 01:01 168/89 99 08/30/17 00:45 154/103 100 08/30/17 00:37 154/103 100 08/30/17 00:31 138/62 100 08/30/17 00:15 138/62 99 08/30/17 00:01 138/62 100 08/30/17 00:00 99 08/29/17 23:54 08/29/17 23:45 138/62 99 08/29/17 23:31 143/77 100 08/29/17 23:26 143/77 99 08/29/17 23:15 143/77 96 08/29/17 23:01 146/65 95 08/29/17 22:45 146/65 97 08/29/17 22:31 146/65 88 08/29/17 22:15 130/58 96 08/29/17 22:01 130/58 95 08/29/17 22:00 08/29/17 21:45 130/58 97 08/29/17 21:31 130/58 95 08/29/17 21:15 123/53 94 08/29/17 21:01 123/53 98 08/29/17 20:45 135/61 98 08/29/17 20:31 135/61 99 08/29/17 20:26 08/29/17 20:21 08/29/17 20:19 100 08/29/17 20:15 121/55 98 08/29/17 20:01 121/55 98 08/29/17 20:00 08/29/17 19:45 133/65 96 07/10/18 19:31 110/53 98 07 19:15 133/65 100 0718 19:01 126/51 99 0718 18:45 157/104 98 0718 18:31 157/104 98 18 18:15 136/57 99 0718 18:01 136/57 99 0718 17:45 128/60 98 08/29/17 17:31 113/46 97 08/29/17 17:15 144/66 98 08/29/17 17:01 111/68 99 08/29/17 16:45 111/68 98 08/29/17 16:31 111/68 99 08/29/17 16:15 111/68 99 08/29/17 16:01 128/50 97 08/29/17 16:00 98 08/29/17 15:45 181/130 98 08/29/17 15:31 143/73 100 08/29/17 15:15 126/57 98 08/29/17 15:01 115/53 100 08/29/17 14:45 126/57 98 08/29/17 14:31 126/57 100 08/29/17 14:15 225/194 100 08/29/17 14:01 225/194 98 08/29/17 13:45 105/60 97 08/29/17 13:31 105/60 95 08/29/17 13:15 109/59 100 08/29/17 13:01 110/62 98 08/29/17 12:45 93/60 98 08/29/17 12:30 93/60 97 08/29/17 12:20 98 08/29/17 12:15 106/52 100 08/29/17 12:01 102/55 100 08/29/17 12:00 08/29/17 11:45 117/59 100 0718 11:31 117/59 100 08/29/17 11:15 139/75 99 07 11:01 139/75 99 0718 10:56 134/51 100 07 10:45 125/51 100 0718 10:31 141/63 99 07 10:15 141/63 99 07 10:01 141/63 99 07 10:00 08/29/17 09:45 118/52 99 08/29/17 09:31 117/45 99 08/29/17 09:15 118/49 100 - Physical Examination General: No Apparent Distress HEENT: Positive: PERRL Cardiac: Positive: irregularly irregular - Labs and Meds CBC 08/30/17 Range/Units 04:00 WBC 15.1 H (4.5-11.0) K/mm3 RBC 3.93 (3.65-5.03) M/mm3 Hgb 9.2 L (11.8-15.2) gm/dl Hct 28.9 L (35.5-45.6) % Plt Count 214 (140-440) K/mm3 Lymph # 1.0 L (1.2-5.4) K/mm3 [place] # 1.1 H (0.0-0.8) K/mm3 Eos # 0.0 (0.0-0.4) K/mm3 Baso # 0.0 (0.0-0.1) K/mm3 Comprehensive Metabolic Panel 08/30/17 Range/Units 04:00 Sodium 143 (137-145) mmol/L Potassium 3.9 (3.6-5.0) mmol/L Chloride 108.0 H (98-107) mmol/L Carbon Dioxide 23 (22-30) mmol/L BUN 37 H (9-20) mg/dL Creatinine 1.1 (0.8-1.5) mg/dL Glucose 112 H (75-100) mg/dL Calcium 8.0 L (8.4-10.2) mg/dL
--- NOTE | 2017-08-30 09:14 | Progress Note ---
Assessment and Plan Assessment: 1) Sepsis with transient septic shock: showed resolved, leukocytosis better. Etiology most likely UTI. DDX bacteremia, pneumonia -blood cx neg 2) Complicated UTI: with urinary retention -08/24/17 SP cath was placed -08/27/17 CT abd showed free air intraperitoneal, SP cath, high density material in the urinary bladder, prominent prostate and bilateral renal calculi. -08/27/17 taken to the OR for cysto, evacuation of clots and merida placement by due to acute retention and exlap with evacuation of large amount of blood 2 L from abdominal cavity by Surgery. No bowel perf found. -08/28/17 UA showed 43 wbc, large LE. 3) Intra-abdominal bleeding: from SP cath 4) A fib with RVR 5) History of bipolar disorder 6) BPH 7) Acute on CKD 8) CHF exacerbation Plan: -follow-up blood cultures, urine culture and sputum cx -continue cefepime, fluconazole and vancomycin renally dosed -will narrow abx down soon -repeat CXR today I am rounding on 09/01 Thanks Kelly Pérez MD Infectious Diseases Specialist [facility] M [phone] O [phone] Subjective Date of service: 08/30/17 Principal diagnosis: afib with RVR and CHF excacerbation Interval history: Remains on CPAP, alert but confused, tachy on monitor, no fever, no pressors for 24h Microbiology: Blood cultures: 08/28 ngtd Urine cultures: 08/28 pending Respiratory cultures: 08/28 neg Current Antimicrobials: cefepime vanco prn fluconazole Objective - Exam Narrative Exam: General appearance: Alert in NAD, conversant anxious on CPAP Eyes: anicteric sclerae, moist conjunctivae; no lid-lag; PERRLA HENT: Atraumatic; oropharynx CPAP mask Neck: Trachea midline; supple, no thyromegaly or lymphadenopathy Lungs: CTA, with normal respiratory effort and no intercostal retractions CV: tachy Abdomen: Soft, surg wound with dressings, drain with blood ? merida w hematuria Extremities: No peripheral edema or extremity lymphadenopathy Skin: Normal temperature, turgor and texture; no rash, ulcers or subcutaneous nodules Psych: Appropriate affect, alert and oriented to person, place and time. Neuro: alert and oriented x 3. Moving all extermities Lines: right SC TLC - Constitutional Vitals: Vital Signs Temp Pulse Resp BP Pulse Ox 99.2 F 123 H 20 155/71 100 08/29/17 23:54 08/30/17 07:28 08/30/17 07:28 08/30/17 07:24 08/30/17 07:24 Temperature -Last 24 Hours Temperature 99.2 F Temperature 99.0 F Temperature 99.8 F Temperature 99.8 F - Labs CBC & Chem 7: 08/30/17 04:00 08/30/17 04:00 Labs: Abnormal lab results 08/29/17 08/29/17 08/29/17 Range/Units 10:58 17:22 20:45 WBC (4.5-11.0) K/mm3 Hgb (11.8-15.2) gm/dl Hct (35.5-45.6) % MCV (84-94) fl MCH (28-32) pg RDW (13.2-15.2) % Lymph % (Auto) (13.4-35.0) % Lymph # (1.2-5.4) K/mm3 [place]ckett # (0.0-0.8) K/mm3 Seg Neutrophils % (40.0-70.0) % Seg Neutrophils # (1.8-7.7) K/mm3 POC ABG pCO2 34.8 L (35-45) Chloride (98-107) mmol/L BUN (9-20) mg/dL Glucose (75-100) mg/dL POC Glucose 119 H (70-105) Calcium (8.4-10.2) mg/dL Phosphorus (2.5-4.5) mg/dL C-Reactive Protein 38.40 H (0.00-1.30) mg/dL 08/29/17 08/30/17 08/30/17 Range/Units 23:41 04:00 04:00 WBC 15.1 H (4.5-11.0) K/mm3 Hgb 9.2 L (11.8-15.2) gm/dl Hct 28.9 L (35.5-45.6) % MCV 74 L (84-94) fl MCH 23 L (28-32) pg RDW 23.5 H (13.2-15.2) % Lymph % (Auto) 6.3 L (13.4-35.0) % Lymph # 1.0 L (1.2-5.4) K/mm3 [place] # 1.1 H (0.0-0.8) K/mm3 Seg Neutrophils % 86.5 H (40.0-70.0) % Seg Neutrophils # 13.0 H (1.8-7.7) K/mm3 POC ABG pCO2 (35-45) Chloride 108.0 H (98-107) mmol/L BUN 37 H (9-20) mg/dL Glucose 112 H (75-100) mg/dL POC Glucose 113 H (70-105) Calcium 8.0 L (8.4-10.2) mg/dL Phosphorus (2.5-4.5) mg/dL C-Reactive Protein (0.00-1.30) mg/dL 08/30/17 08/30/17 Range/Units 04:00 05:34 WBC (4.5-11.0) K/mm3 Hgb (11.8-15.2) gm/dl Hct (35.5-45.6) % MCV (84-94) fl MCH (28-32) pg RDW (13.2-15.2) % Lymph % (Auto) (13.4-35.0) % Lymph # (1.2-5.4) K/mm3 [place] # (0.0-0.8) K/mm3 Seg Neutrophils % (40.0-70.0) % Seg Neutrophils # (1.8-7.7) K/mm3 POC ABG pCO2 (35-45) Chloride (98-107) mmol/L BUN (9-20) mg/dL Glucose (75-100) mg/dL POC Glucose 116 H (70-105) Calcium (8.4-10.2) mg/dL Phosphorus 2.10 L (2.5-4.5) mg/dL C-Reactive Protein (0.00-1.30) mg/dL
[2017-08-30] MEDS: PEPCID IV SCH ×2 (10:26→21:51)
[2017-08-30] MEDS: MAXIPIME/NS 2 GM/100 ML 2 GM/100 ML BAG IV SCH ×2 (11:10→21:52)
--- NOTE | 2017-08-30 12:04 | Progress Note ---
Assessment and Plan Assessment and plan: Acute hypoxemic respiratory failure Patient extubated on 08/29/17. Continue O2 to maintain sats. BiPAP as clinically indicated. Acute on chronic diastolic heart failure Echo 04/2017 at [place] - LVEF 45-50%, moderate RV dysfunction, RVSP 49 mm Hg and dilated IVC Cont diuresis per Cardiology Permanent atrial fibrillation with RVR Continue IV Cardizem and lopressor, Cardiology is following and recommends resuming anticoagulation with either IV heparin or xarelto (renally dosed) if no further surgical procedures are planned. Sepsis ID following. Continue IV antibiotics. Patient currently off pressors. Complicated UTI with urinary retention. -08/24/17 SP cath was placed -08/27/17 CT abd showed free air intraperitoneal, SP cath, high density material in the urinary bladder, prominent prostate and bilateral renal calculi. -08/27/17 taken to the OR for cysto, evacuation of clots and merida placement by due to acute retention and exlap with evacuation of large amount of blood 2 L from abdominal cavity by Surgery. No bowel perf found. -08/28/17 UA showed 43 wbc, large LE. History of CAD s/p PCI to LAD (2011) low salt diet and medical management History of ascending aortic aneurysm measuring [address] 03/2016 Chronic DVT on xarelto Acute renal failure Etiology likely secondary to Sepsis/ATN Consult Nephrology Systemic Hypertension Urinary retention Urology following Non-compliance History Interval history: No new issues overnight. Hospitalist Physical - Constitutional Vitals: Temp Pulse Resp BP Pulse Ox 99.2 F 104 H 26 H 152/68 99 08/29/17 23:54 08/30/17 09:46 08/30/17 09:46 08/30/17 09:46 08/30/17 09:46 General appearance: Present: other (orally intubated) - EENT Eyes: Present: PERRL, EOM intact ENT: hearing intact, clear oral mucosa, dentition normal - Neck Neck: Present: supple, normal ROM - Respiratory Respiratory effort: normal Respiratory: bilateral: CTA - Cardiovascular Rhythm: regular Heart Sounds: Present: S1 & S2. Absent: gallop, rub - Extremities Extremities: no ischemia, No edema, Full ROM - Abdominal General gastrointestinal: soft, non-tender, non-distended, normal bowel sounds - Integumentary Integumentary: Present: clear, warm, dry - Neurologic Neurologic: CNII-XII intact, moves all extremities Results - Labs CBC & Chem 7: 08/30/17 04:00 08/30/17 04:00 Labs: Laboratory Last Values WBC 15.1 K/mm3 (4.5-11.0) H 08/30/17 04:00 RBC 3.93 M/mm3 (3.65-5.03) 08/30/17 04:00 Hgb 9.2 gm/dl (11.8-15.2) L 08/30/17 04:00 Hct 28.9 % (35.5-45.6) L 08/30/17 04:00 MCV 74 fl (84-94) L 08/30/17 04:00 MCH 23 pg (28-32) L 08/30/17 04:00 MCHC 32 % (32-34) 08/30/17 04:00 RDW 23.5 % (13.2-15.2) H 08/30/17 04:00 Plt Count 214 K/mm3 (140-440) 08/30/17 04:00 Lymph % (Auto) 6.3 % (13.4-35.0) L 08/30/17 04:00 [place] % (Auto) 7.0 % (0.0-7.3) 08/30/17 04:00 Eos % (Auto) 0.1 % (0.0-4.3) 08/30/17 04:00 Baso % (Auto) 0.1 % (0.0-1.8) 08/30/17 04:00 Lymph # 1.0 K/mm3 (1.2-5.4) L 08/30/17 04:00 [place] # 1.1 K/mm3 (0.0-0.8) H 08/30/17 04:00 Eos # 0.0 K/mm3 (0.0-0.4) 08/30/17 04:00 Baso # 0.0 K/mm3 (0.0-0.1) 08/30/17 04:00 Add Manual Diff Complete 08/28/17 12:10 Total Counted 100 08/28/17 12:10 Seg Neutrophils % 86.5 % (40.0-70.0) H 08/30/17 04:00 Seg Neuts % (Manual) 89.0 % (40.0-70.0) H 08/28/17 12:10 Band Neutrophils % 0 % 08/28/17 12:10 Lymphocytes % (Manual) 3.0 % (13.4-35.0) L 08/28/17 12:10 Reactive Lymphs % (Man) 0 % 08/28/17 12:10 Monocytes % (Manual) 8.0 % (0.0-7.3) H 08/28/17 12:10 Eosinophils % (Manual) 0 % (0.0-4.3) 08/28/17 12:10 Basophils % (Manual) 0 % (0.0-1.8) 08/28/17 12:10 Metamyelocytes % 0 % 08/28/17 12:10 Myelocytes % 0 % 08/28/17 12:10 Promyelocytes % 0 % 08/28/17 12:10 Blast Cells % 0 % 08/28/17 12:10 Nucleated RBC % Not Reportable 08/28/17 12:10 Seg Neutrophils # 13.0 K/mm3 (1.8-7.7) H 08/30/17 04:00 Seg Neutrophils # Man 13.9 K/mm3 (1.8-7.7) H 08/28/17 12:10 Band Neutrophils # 0.0 K/mm3 08/28/17 12:10 Lymphocytes # (Manual) 0.5 K/mm3 (1.2-5.4) L 08/28/17 12:10 Abs React Lymphs (Man) 0.0 K/mm3 08/28/17 12:10 Monocytes # (Manual) 1.2 K/mm3 (0.0-0.8) H 08/28/17 12:10 Eosinophils # (Manual) 0.0 K/mm3 (0.0-0.4) 08/28/17 12:10 Basophils # (Manual) 0.0 K/mm3 (0.0-0.1) 08/28/17 12:10 Metamyelocytes # 0.0 K/mm3 08/28/17 12:10 Myelocytes # 0.0 K/mm3 08/28/17 12:10 Promyelocytes # 0.0 K/mm3 08/28/17 12:10 Blast Cells # 0.0 K/mm3 08/28/17 12:10 WBC Morphology Not Reportable 08/28/17 12:10 Hypersegmented Neuts Not Reportable 08/28/17 12:10 Hyposegmented Neuts Not Reportable 08/28/17 12:10 Hypogranular Neuts Not Reportable 08/28/17 12:10 Smudge Cells Not Reportable 08/28/17 12:10 Toxic Granulation Not Reportable 08/28/17 12:10 Toxic Vacuolation Not Reportable 08/28/17 12:10 Dohle Bodies Not Reportable 08/28/17 12:10 Pelger-Huet Anomaly Not Reportable 08/28/17 12:10 Cande Rods Not Reportable 08/28/17 12:10 Platelet Estimate Not Reportable 08/28/17 12:10 Clumped Platelets Not Reportable 08/28/17 12:10 Plt Clumps, EDTA Not Reportable 08/28/17 12:10 Large Platelets Not Reportable 08/28/17 12:10 Giant Platelets Not Reportable 08/28/17 12:10 Platelet Satelliting Not Reportable 08/28/17 12:10 Plt Morphology Comment Not Reportable 08/28/17 12:10 RBC Morphology Normal 08/28/17 12:10 Dimorphic RBCs Not Reportable 08/28/17 12:10 Polychromasia Not Reportable 08/28/17 12:10 Hypochromasia Not Reportable 08/28/17 12:10 Poikilocytosis Not Reportable 08/28/17 12:10 Anisocytosis 1+ 08/28/17 12:10 Microcytosis Not Reportable 08/28/17 12:10 Macrocytosis Not Reportable 08/28/17 12:10 Spherocytes Not Reportable 08/28/17 12:10 Pappenheimer Bodies Not Reportable 08/28/17 12:10 Sickle Cells Not Reportable 08/28/17 12:10 Target Cells Not Reportable 08/28/17 12:10 Tear Drop Cells Not Reportable 08/28/17 12:10 Ovalocytes Not Reportable 08/28/17 12:10 Helmet Cells Not Reportable 08/28/17 12:10 Morrell-Bertrand Bodies Not Reportable 08/28/17 12:10 [place] Rings Not Reportable 08/28/17 12:10 [place] Cells Not Reportable 08/28/17 12:10 Bite Cells Not Reportable 08/28/17 12:10 Crenated Cell Not Reportable 08/28/17 12:10 Elliptocytes Not Reportable 08/28/17 12:10 Acanthocytes (Spur) Not Reportable 08/28/17 12:10 Rouleaux Not Reportable 08/28/17 12:10 Hemoglobin C Crystals Not Reportable 08/28/17 12:10 Schistocytes Not Reportable 08/28/17 12:10 Malaria parasites Not Reportable 08/28/17 12:10 Jonny Bodies Not Reportable 08/28/17 12:10 Hem Pathologist Commnt No 08/28/17 12:10 PT 22.5 Sec. (12.2-14.9) H 08/28/17 12:10 INR 1.85 (0.87-1.13) H 08/28/17 12:10 APTT 32.3 Sec. (24.2-36.6) 08/28/17 12:10 POC ABG pH 7.435 (7.35-7.45) 08/29/17 10:58 POC ABG pCO2 34.8 (35-45) L 08/29/17 10:58 POC ABG pO2 93 (80-105) 08/29/17 10:58 POC ABG HCO3 23.4 08/29/17 10:58 POC ABG Total CO2 24 08/29/17 10:58 POC ABG O2 Sat 98 08/29/17 10:58 POC ABG Base Excess -1 08/29/17 10:58 FiO2 28 % 08/29/17 10:58 Sodium 143 mmol/L (137-145) 08/30/17 04:00 Potassium 3.9 mmol/L (3.6-5.0) 08/30/17 04:00 Chloride 108.0 mmol/L (98-107) H 08/30/17 04:00 Carbon Dioxide 23 mmol/L (22-30) 08/30/17 04:00 Anion Gap 16 mmol/L 08/30/17 04:00 BUN 37 mg/dL (9-20) H 08/30/17 04:00 Creatinine 1.1 mg/dL (0.8-1.5) 08/30/17 04:00 Estimated GFR > 60 ml/min 08/30/17 04:00 BUN/Creatinine Ratio 34 % 08/30/17 04:00 Glucose 112 mg/dL (75-100) H 08/30/17 04:00 POC Glucose 116 (70-105) H 08/30/17 05:34 Lactic Acid 1.80 mmol/L (0.7-2.0) 08/28/17 Unknown Calcium 8.0 mg/dL (8.4-10.2) L 08/30/17 04:00 Phosphorus 2.10 mg/dL (2.5-4.5) L 08/30/17 04:00 Magnesium 2.30 mg/dL (1.7-2.3) 08/30/17 04:00 Total Bilirubin 1.40 mg/dL (0.1-1.2) H 08/28/17 12:10 AST 32 units/L (5-40) 08/28/17 12:10 ALT 16 units/L (7-56) 08/28/17 12:10 Alkaline Phosphatase 42 units/L (35-129) 08/28/17 12:10 Total Creatine Kinase 155 units/L (55-170) 08/23/17 10:56 CK-MB (CK-2) 4.4 ng/mL (0.0-4.0) H 08/23/17 10:56 CK-MB (CK-2) Rel Index 2.8 (0-4) 08/23/17 10:56 Troponin T 0.077 ng/mL (0.00-0.029) H D 08/23/17 10:56 C-Reactive Protein 38.40 mg/dL (0.00-1.30) H 08/29/17 20:45 NT-Pro-B Natriuret Pep 17781 pg/mL (0-900) H 08/23/17 02:54 Total Protein 5.3 g/dL (6.3-8.2) L 08/28/17 12:10 Albumin 2.1 g/dL (3.9-5) L 08/28/17 12:10 Albumin/Globulin Ratio 0.7 % 08/28/17 12:10 Triglycerides 69 mg/dL (2-149) 08/23/17 02:54 Cholesterol 125 mg/dL (50-199) 08/23/17 02:54 LDL Cholesterol Direct 77 mg/dL (50-130) 08/23/17 02:54 HDL Cholesterol 36 mg/dL (40-59) L 08/23/17 02:54 Cholesterol/HDL Ratio 3.47 % 08/23/17 02:54 Urine Color Yellow (Yellow) 08/28/17 21:00 Urine Turbidity Clear (Clear) 08/28/17 21:00 Urine pH 5.0 (5.0-7.0) 08/28/17 21:00 Ur Specific [place] 1.005 (1.003-1.030) 08/28/17 21:00 Urine Protein <15 mg/dl mg/dL (Negative) 08/28/17 21:00 Urine Glucose (UA) Neg mg/dL (Negative) 08/28/17 21:00 Urine Ketones Neg mg/dL (Negative) 08/28/17 21:00 Urine Blood Lg (Negative) 08/28/17 21:00 Urine Nitrite Neg (Negative) 08/28/17 21:00 Urine Bilirubin Neg (Negative) 08/28/17 21:00 Urine Urobilinogen < 2.0 mg/dL (<2.0) 08/28/17 21:00 Ur Leukocyte Esterase Lg (Negative) 08/28/17 21:00 Urine WBC (Auto) 43.0 /HPF (0.0-6.0) H 08/28/17 21:00 Urine RBC (Auto) > 182.0 /HPF (0.0-6.0) 08/28/17 21:00 U Epithel Cells (Auto) < 1.0 /HPF (0-13.0) 08/28/17 21:00 Uric Acid Crystals 2+ 08/28/17 21:00 Urine Mucus Few /HPF 08/28/17 21:00 Blood Type B POSITIVE 08/27/17 20:03 Antibody Screen Negative 08/27/17 20:03 Crossmatch See Detail 08/27/17 20:03
[2017-08-30] MEDS: LOPRESSOR IV SCH ×2 (13:00→18:28)
--- NOTE | 2017-08-30 14:04 | Progress Note ---
Assessment and Plan Imp: 1. Urinary obstruction/retention -> r/o UTI 2. SIRS, r/o sepsis 3. Acute respiratory failure, hypoxia 4. JULIÁN 5. Shock/hypotension, hopefully volume depletion but r/o sepsis ( or GI) 6. Afib w/ RVR Rec: 1. Cont. IVFs for now, until adequately taking PO 2. ST eval. of swallow 3. Afib w/ RVR per cardiology; can start PO regimen once cleared for PO by ST 4. F/u cultures; ABX per ID 5. Surgery/Urology f/u 6. Per surgery, okay to start PO if cleared by ST 7. SCDs; resume anticoagulation if cleared by surgery and urology 8. PT evaluation/OOB 9. Reconsult psych to determine the appropriate bipolar regimen 10. Keep in ICU 24 more hours; hopefully once off Dilt drip and confusion clears a bit he can go to floor w/ tele No family present CCT 31 minutes Subjective Date of service: 08/30/17 Principal diagnosis: afib with RVR and CHF excacerbation Interval history: Doing better. Off pressors. Extubated on NC. Confused but awake. Denies pain or SOB. Wants ice chips. Active Medications Acetaminophen (Tylenol) 650 mg PO Q4H PRN PRN Reason: Pain MILD(1-3)/Fever >100.5/IRBY Last Admin: 08/27/17 01:07 Dose: 650 mg Atorvastatin Calcium (Lipitor) 20 mg PO QHS [facility] Last Admin: 08/29/17 22:40 Dose: 20 mg Famotidine (Pepcid) 20 mg IV BID [facility] Last Admin: 08/30/17 10:26 Dose: 20 mg Norepinephrine (Levophed Drip 4 Mg/Ns 250 Ml) 4 mg in 250 mls @ 7.5 mls/hr IV TITR [facility]; Protocol Fentanyl Citrate (Fentanyl Drip Premix) 2,000 mcg in 100 mls @ 4.655 mls/hr IV TITR [facility]; Protocol Last Titration: 08/29/17 19:23 Dose: 0 mcg/kg/hr, 0 mls/hr Phenylephrine HCl 100 mg/ (Sodium Chloride) 100 mls @ 3 mls/hr IV TITR [facility]; Protocol Last Titration: 08/29/17 07:05 Dose: Infused Sodium Chloride (Nacl 0.9% 1000 Ml) 1,000 mls @ 125 mls/hr IV DIRECT [facility] Last Admin: 08/30/17 10:27 Dose: 125 mls/hr Diltiazem HCl 100 mg/ Dextrose 120 mls @ 0 mls/hr IV DIRECT [facility] Last Admin: 08/29/17 20:29 Dose: 10 mls/hr Cefepime HCl (Maxipime/Ns 2 Gm/100 Ml) 2 gm in 100 mls @ 200 mls/hr IV Q12HR [facility] Last Admin: 08/30/17 11:10 Dose: 200 mls/hr Fluconazole (Diflucan) 200 mg in 100 mls @ 100 mls/hr IV Q24HR [facility]; Protocol Last Admin: 08/30/17 10:25 Dose: 100 mls/hr Ipratropium [place] (Atrovent) 0.5 mg IH TIDRT [facility] Last Admin: 08/30/17 07:27 Dose: 0.5 mg Lorazepam (Ativan) 1 mg IV Q3HR PRN PRN Reason: Agitation Last Admin: 08/30/17 02:17 Dose: 1 mg Metoprolol Tartrate (Lopressor) 2.5 mg IV Q6HR [facility] Sodium Chloride (Sodium Chloride Flush Syringe 10 Ml) 10 ml IV BID [facility] Last Admin: 08/30/17 10:25 Dose: 10 ml Sodium Chloride (Sodium Chloride Flush Syringe 10 Ml) 10 ml IV PRN PRN PRN Reason: LINE FLUSH Sodium Chloride (Nacl 0.9%) 1,000 ml IR PRN PRN PRN Reason: Wound Care Active Medications Acetaminophen (Tylenol) 650 mg PO Q4H PRN PRN Reason: Pain MILD(1-3)/Fever >100.5/IRBY Last Admin: 08/27/17 01:07 Dose: 650 mg Atorvastatin Calcium (Lipitor) 20 mg PO QHS [facility] Last Admin: 08/28/17 23:00 Dose: Not Given Famotidine (Pepcid) 20 mg IV BID [facility] Last Admin: 08/29/17 11:01 Dose: 20 mg Norepinephrine (Levophed Drip 4 Mg/Ns 250 Ml) 4 mg in 250 mls @ 7.5 mls/hr IV TITR [facility]; Protocol Fentanyl Citrate (Fentanyl Drip Premix) 2,000 mcg in 100 mls @ 4.655 mls/hr IV TITR [facility]; Protocol Last Titration: 08/29/17 07:50 Dose: 0 mcg/kg/hr, 0 mls/hr Phenylephrine HCl 100 mg/ (Sodium Chloride) 100 mls @ 3 mls/hr IV TITR [facility]; Protocol Last Titration: 08/29/17 07:05 Dose: Infused Sodium Chloride (Nacl 0.9% 1000 Ml) 1,000 mls @ 125 mls/hr IV DIRECT [facility] Last Admin: 08/29/17 07:56 Dose: 125 mls/hr Diltiazem HCl 100 mg/ Dextrose 120 mls @ 0 mls/hr IV DIRECT [facility] Last Admin: 08/29/17 12:28 Dose: 10 mls/hr Cefepime HCl (Maxipime/Ns 2 Gm/100 Ml) 2 gm in 100 mls @ 200 mls/hr IV Q12HR [facility] Last Admin: 08/29/17 11:02 Dose: 200 mls/hr Ipratropium [place] (Atrovent) 0.5 mg IH TIDRT [facility] Last Admin: 08/29/17 07:58 Dose: 0.5 mg Lorazepam (Ativan) 1 mg IV Q3HR PRN PRN Reason: Agitation Last Admin: 08/28/17 10:30 Dose: 1 mg Sodium Chloride (Sodium Chloride Flush Syringe 10 Ml) 10 ml IV BID [facility] Last Admin: 08/29/17 11:37 Dose: 10 ml Sodium Chloride (Sodium Chloride Flush Syringe 10 Ml) 10 ml IV PRN PRN PRN Reason: LINE FLUSH Sodium Chloride (Nacl 0.9%) 2,000 ml IR DIRECT [facility] Last Admin: 08/29/17 11:32 Dose: 2,000 ml Objective Vital Signs - 12hr 08/30/17 08/30/17 08/30/17 02:15 02:30 02:45 Pulse Rate 126 H 140 H 113 H Pulse Rate [ Anterior Upper Lobe] Respiratory 16 17 29 H Rate Respiratory Rate [Anterior Upper Lobe] Blood Pressure 126/72 126/72 126/72 O2 Sat by Pulse 100 100 100 Oximetry 08/30/17 08/30/17 08/30/17 03:01 03:15 03:26 Pulse Rate 121 H 112 H 125 H Pulse Rate [ Anterior Upper Lobe] Respiratory 17 22 27 H Rate Respiratory Rate [Anterior Upper Lobe] Blood Pressure 126/72 126/72 O2 Sat by Pulse 98 99 Oximetry 08/30/17 08/30/17 08/30/17 03:31 03:45 04:00 Pulse Rate 116 H 125 H Pulse Rate [ Anterior Upper Lobe] Respiratory 16 15 24 Rate Respiratory Rate [Anterior Upper Lobe] Blood Pressure 126/72 126/72 O2 Sat by Pulse 96 99 Oximetry 08/30/17 08/30/17 08/30/17 04:01 04:15 04:31 Pulse Rate 109 H 112 H 115 H Pulse Rate [ Anterior Upper Lobe] Respiratory 15 23 23 Rate Respiratory Rate [Anterior Upper Lobe] Blood Pressure 158/86 158/86 158/86 O2 Sat by Pulse 100 100 100 Oximetry 08/30/17 08/30/17 08/30/17 04:45 05:01 05:15 Pulse Rate 120 H 113 H 138 H Pulse Rate [ Anterior Upper Lobe] Respiratory 23 19 17 Rate Respiratory Rate [Anterior Upper Lobe] Blood Pressure 158/86 145/71 145/71 O2 Sat by Pulse 100 100 100 Oximetry 08/30/17 08/30/17 08/30/17 05:31 05:45 06:01 Pulse Rate 127 H 108 H 112 H Pulse Rate [ Anterior Upper Lobe] Respiratory 21 20 23 Rate Respiratory Rate [Anterior Upper Lobe] Blood Pressure 160/74 160/74 155/89 O2 Sat by Pulse 100 100 100 Oximetry 08/30/17 08/30/17 08/30/17 06:15 06:30 06:46 Pulse Rate 114 H 123 H 126 H Pulse Rate [ Anterior Upper Lobe] Respiratory 17 20 23 Rate Respiratory Rate [Anterior Upper Lobe] Blood Pressure 155/89 155/89 157/62 O2 Sat by Pulse 98 99 99 Oximetry 08/30/17 08/30/17 08/30/17 07:00 07:16 07:24 Pulse Rate 114 H 126 H 121 H Pulse Rate [ Anterior Upper Lobe] Respiratory 23 24 23 Rate Respiratory Rate [Anterior Upper Lobe] Blood Pressure 157/62 155/71 155/71 O2 Sat by Pulse 100 100 100 Oximetry 08/30/17 08/30/17 08/30/17 07:28 07:30 07:46 Pulse Rate 103 H 111 H Pulse Rate [ 123 H Anterior Upper Lobe] Respiratory 23 19 Rate Respiratory 20 Rate [Anterior Upper Lobe] Blood Pressure 155/71 155/71 O2 Sat by Pulse 100 100 Oximetry 08/30/17 08/30/1718 08:00 08:16 08:30 Pulse Rate 121 H 122 H 111 H Pulse Rate [ Anterior Upper Lobe] Respiratory 22 19 27 H Rate Respiratory Rate [Anterior Upper Lobe] Blood Pressure 155/71 155/71 150/64 O2 Sat by Pulse 97 85 100 Oximetry 08/30/17 08/30/17 08/30/17 08:46 09:00 09:16 Pulse Rate 135 H 120 H 134 H Pulse Rate [ Anterior Upper Lobe] Respiratory 17 14 30 H Rate Respiratory Rate [Anterior Upper Lobe] Blood Pressure 150/64 170/65 170/65 O2 Sat by Pulse 100 100 100 Oximetry 08/30/17 08/30/17 08/30/17 09:22 09:30 09:46 Pulse Rate 110 H 104 H Pulse Rate [ Anterior Upper Lobe] Respiratory 26 H 26 H Rate Respiratory Rate [Anterior Upper Lobe] Blood Pressure 170/65 152/68 O2 Sat by Pulse 100 100 99 Oximetry 08/30/17 08/30/17 08/30/17 10:00 10:16 10:30 Pulse Rate 101 H 110 H 117 H Pulse Rate [ Anterior Upper Lobe] Respiratory 24 30 H 17 Rate Respiratory Rate [Anterior Upper Lobe] Blood Pressure 152/68 152/68 152/68 O2 Sat by Pulse 100 100 99 Oximetry 08/30/17 08/30/17 08/30/17 10:46 11:00 11:16 Pulse Rate 103 H 120 H 121 H Pulse Rate [ Anterior Upper Lobe] Respiratory 15 29 H 29 H Rate Respiratory Rate [Anterior Upper Lobe] Blood Pressure 152/68 129/86 126/57 O2 Sat by Pulse 100 99 99 Oximetry 08/30/17 08/30/17 08/30/17 11:30 11:46 12:00 Pulse Rate 113 H 109 H 100 H Pulse Rate [ Anterior Upper Lobe] Respiratory 33 H 26 H 26 H Rate Respiratory Rate [Anterior Upper Lobe] Blood Pressure 142/61 142/61 142/61 O2 Sat by Pulse 94 100 100 Oximetry 08/30/17 08/30/17 08/30/17 12:16 12:30 12:46 Pulse Rate 117 H 108 H 124 H Pulse Rate [ Anterior Upper Lobe] Respiratory 26 H 20 28 H Rate Respiratory Rate [Anterior Upper Lobe] Blood Pressure 136/66 136/66 136/66 O2 Sat by Pulse 100 100 96 Oximetry 0708/30/17 08/30/17 13:00 13:16 13:30 Pulse Rate 118 H 108 H 127 H Pulse Rate [ Anterior Upper Lobe] Respiratory 30 H 23 31 H Rate Respiratory Rate [Anterior Upper Lobe] Blood Pressure 136/66 136/66 136/66 O2 Sat by Pulse 98 100 98 Oximetry 08/30/17 13:45 Pulse Rate 128 H Pulse Rate [ Anterior Upper Lobe] Respiratory 25 H Rate Respiratory Rate [Anterior Upper Lobe] Blood Pressure 176/124 O2 Sat by Pulse 100 Oximetry Constitutional: other (critically ill) Eyes: non-icteric Neck: supple Effort: normal Ascultation: Bilateral: clear (anteriorly) Cardiovascular: irregular rhythm (no mrg, tachy) Gastrointestinal: hypoactive bowel sounds, soft, non-tender, other (distended; minimal output from JIM drains when I saw him) Extremities: no cyanosis, no edema, pink and warm Neurologic: normal mental status, non-focal exam, pupils equal and round Psychiatric: mood appropriate, affect normal CBC and BMP: 08/30/17 04:00 08/30/17 04:00 ABG, PT/INR, D-dimer: ABG POC ABG pH 7.435 (7.35-7.45) 08/29/17 10:58 POC ABG pCO2 34.8 (35-45) L 08/29/17 10:58 POC ABG pO2 93 (80-105) 08/29/17 10:58 POC ABG HCO3 23.4 08/29/17 10:58 POC ABG Total CO2 24 08/29/17 10:58 POC ABG O2 Sat 98 08/29/17 10:58 PT/INR, D-dimer PT 22.5 Sec. (12.2-14.9) H 08/28/17 12:10 INR 1.85 (0.87-1.13) H 08/28/17 12:10 Abnormal lab findings: Abnormal Labs 08/23/17 08/23/17 08/23/17 02:54 02:54 02:54 WBC Hgb 10.7 L Hct 33.8 L MCV 71 L MCH 23 L MCHC RDW 22.8 H Lymph % (Auto) [place] % (Auto) 12.4 H Lymph # [place] # Seg Neutrophils % Seg Neuts % (Manual) Lymphocytes % (Manual) Monocytes % (Manual) Seg Neutrophils # Seg Neutrophils # Man Lymphocytes # (Manual) Monocytes # (Manual) PT INR POC ABG pH POC ABG pCO2 POC ABG pO2 Sodium Chloride Carbon Dioxide BUN 28 H Creatinine Glucose POC Glucose Lactic Acid Calcium Phosphorus Total Bilirubin CK-MB (CK-2) Troponin T 0.077 H C-Reactive Protein NT-Pro-B Natriuret Pep 52626 H Total Protein Albumin HDL Cholesterol 36 L Urine WBC (Auto) Crossmatch 08/23/17 08/23/17 08/23/17 05:03 05:13 10:56 WBC Hgb Hct MCV MCH MCHC RDW Lymph % (Auto) [place] % (Auto) Lymph # [place] # Seg Neutrophils % Seg Neuts % (Manual) Lymphocytes % (Manual) Monocytes % (Manual) Seg Neutrophils # Seg Neutrophils # Man Lymphocytes # (Manual) Monocytes # (Manual) PT 15.5 H INR 1.17 H POC ABG pH POC ABG pCO2 POC ABG pO2 Sodium Chloride Carbon Dioxide BUN Creatinine Glucose POC Glucose Lactic Acid Calcium Phosphorus Total Bilirubin CK-MB (CK-2) 4.4 H 4.4 H Troponin T 0.062 H 0.077 H D C-Reactive Protein NT-Pro-B Natriuret Pep Total Protein Albumin HDL Cholesterol Urine WBC (Auto) Crossmatch 08/23/17 08/24/17 08/24/17 20:28 04:00 04:00 WBC Hgb 11.1 L Hct 34.4 L MCV 71 L MCH 23 L MCHC RDW 22.5 H Lymph % (Auto) 5.6 L [place] % (Auto) 9.4 H Lymph # 0.6 L [place] # 1.0 H Seg Neutrophils % 84.8 H Seg Neuts % (Manual) Lymphocytes % (Manual) Monocytes % (Manual) Seg Neutrophils # 9.2 H Seg Neutrophils # Man Lymphocytes # (Manual) Monocytes # (Manual) PT INR POC ABG pH POC ABG pCO2 POC ABG pO2 52 L Sodium 146 H D Chloride Carbon Dioxide BUN 35 H Creatinine 1.8 H Glucose POC Glucose Lactic Acid Calcium Phosphorus Total Bilirubin CK-MB (CK-2) Troponin T C-Reactive Protein NT-Pro-B Natriuret Pep Total Protein Albumin HDL Cholesterol Urine WBC (Auto) Crossmatch 08/25/17 08/25/17 08/26/17 Unknown Unknown 04:20 WBC Hgb 10.7 L 10.2 L Hct 33.5 L 31.7 L MCV 70 L 70 L MCH 23 L 23 L MCHC RDW 22.5 H 22.2 H Lymph % (Auto) [place] % (Auto) Lymph # [place] # Seg Neutrophils % Seg Neuts % (Manual) Lymphocytes % (Manual) Monocytes % (Manual) Seg Neutrophils # Seg Neutrophils # Man Lymphocytes # (Manual) Monocytes # (Manual) PT INR POC ABG pH POC ABG pCO2 POC ABG pO2 Sodium Chloride Carbon Dioxide 31 H BUN 37 H Creatinine 1.6 H Glucose POC Glucose Lactic Acid Calcium Phosphorus Total Bilirubin CK-MB (CK-2) Troponin T C-Reactive Protein NT-Pro-B Natriuret Pep Total Protein Albumin HDL Cholesterol Urine WBC (Auto) Crossmatch 08/26/17 08/27/17 08/27/17 04:20 03:29 06:50 WBC Hgb 9.7 L Hct 30.7 L MCV 71 L MCH 23 L MCHC RDW 21.3 H Lymph % (Auto) [place] % (Auto) Lymph # [place] # Seg Neutrophils % Seg Neuts % (Manual) Lymphocytes % (Manual) Monocytes % (Manual) Seg Neutrophils # Seg Neutrophils # Man Lymphocytes # (Manual) Monocytes # (Manual) PT INR POC ABG pH POC ABG pCO2 POC ABG pO2 Sodium Chloride 95.6 L Carbon Dioxide 36 H BUN 30 H Creatinine Glucose 112 H POC Glucose 146 H Lactic Acid Calcium Phosphorus Total Bilirubin CK-MB (CK-2) Troponin T C-Reactive Protein NT-Pro-B Natriuret Pep Total Protein Albumin HDL Cholesterol Urine WBC (Auto) Crossmatch 08/27/17 08/27/17 08/27/17 06:50 09:12 15:40 WBC Hgb Hct MCV MCH MCHC RDW Lymph % (Auto) [place] % (Auto) Lymph # [place] # Seg Neutrophils % Seg Neuts % (Manual) Lymphocytes % (Manual) Monocytes % (Manual) Seg Neutrophils # Seg Neutrophils # Man Lymphocytes # (Manual) Monocytes # (Manual) PT 22.6 H INR 1.86 H POC ABG pH POC ABG pCO2 POC ABG pO2 Sodium Chloride 96.9 L Carbon Dioxide BUN 32 H Creatinine 1.9 H D Glucose 115 H POC Glucose 115 H Lactic Acid Calcium Phosphorus Total Bilirubin CK-MB (CK-2) Troponin T C-Reactive Protein NT-Pro-B Natriuret Pep Total Protein Albumin HDL Cholesterol Urine WBC (Auto) Crossmatch 08/27/17 08/28/17 08/28/17 20:03 01:04 02:40 WBC Hgb Hct MCV MCH MCHC RDW Lymph % (Auto) [place] % (Auto) Lymph # [place] # Seg Neutrophils % Seg Neuts % (Manual) Lymphocytes % (Manual) Monocytes % (Manual) Seg Neutrophils # Seg Neutrophils # Man Lymphocytes # (Manual) Monocytes # (Manual) PT INR POC ABG pH 7.328 L POC ABG pCO2 POC ABG pO2 Sodium 135 L Chloride 97.6 L Carbon Dioxide BUN 37 H Creatinine 2.5 H Glucose 127 H POC Glucose Lactic Acid Calcium 7.5 L Phosphorus Total Bilirubin CK-MB (CK-2) Troponin T C-Reactive Protein NT-Pro-B Natriuret Pep Total Protein Albumin HDL Cholesterol Urine WBC (Auto) Crossmatch See Detail 08/28/17 08/28/17 08/28/17 02:40 04:16 12:10 WBC 12.4 H 15.6 H Hgb 10.8 L 9.9 L Hct 34.5 L 31.2 L MCV 74 L 74 L MCH 23 L 23 L MCHC 31 L RDW 23.6 H 23.2 H Lymph % (Auto) 4.0 L [place] % (Auto) 8.8 H Lymph # 0.5 L [place] # 1.1 H Seg Neutrophils % 87.0 H Seg Neuts % (Manual) 89.0 H Lymphocytes % (Manual) 3.0 L Monocytes % (Manual) 8.0 H Seg Neutrophils # 10.8 H Seg Neutrophils # Man 13.9 H Lymphocytes # (Manual) 0.5 L Monocytes # (Manual) 1.2 H PT INR POC ABG pH POC ABG pCO2 POC ABG pO2 110 H Sodium Chloride Carbon Dioxide BUN Creatinine Glucose POC Glucose Lactic Acid Calcium Phosphorus Total Bilirubin CK-MB (CK-2) Troponin T C-Reactive Protein NT-Pro-B Natriuret Pep Total Protein Albumin HDL Cholesterol Urine WBC (Auto) Crossmatch 08/28/17 08/28/17 08/28/17 12:10 12:10 15:30 WBC Hgb Hct MCV MCH MCHC RDW Lymph % (Auto) [place] % (Auto) Lymph # [place] # Seg Neutrophils % Seg Neuts % (Manual) Lymphocytes % (Manual) Monocytes % (Manual) Seg Neutrophils # Seg Neutrophils # Man Lymphocytes # (Manual) Monocytes # (Manual) PT 22.5 H INR 1.85 H POC ABG pH POC ABG pCO2 POC ABG pO2 Sodium Chloride Carbon Dioxide BUN 40 H Creatinine 2.4 H Glucose 118 H POC Glucose Lactic Acid 2.90 H* Calcium 7.3 L Phosphorus Total Bilirubin 1.40 H CK-MB (CK-2) Troponin T C-Reactive Protein NT-Pro-B Natriuret Pep Total Protein 5.3 L Albumin 2.1 L HDL Cholesterol Urine WBC (Auto) Crossmatch 08/28/17 08/28/17 08/29/17 19:15 21:00 03:30 WBC 18.9 H Hgb 9.5 L Hct 29.8 L MCV 73 L MCH 23 L MCHC RDW 23.0 H Lymph % (Auto) 4.7 L [place] % (Auto) 9.2 H Lymph # 0.9 L [place] # 1.7 H Seg Neutrophils % 85.9 H Seg Neuts % (Manual) Lymphocytes % (Manual) Monocytes % (Manual) Seg Neutrophils # 16.2 H Seg Neutrophils # Man Lymphocytes # (Manual) Monocytes # (Manual) PT INR POC ABG pH POC ABG pCO2 POC ABG pO2 Sodium Chloride Carbon Dioxide BUN Creatinine Glucose POC Glucose 125 H Lactic Acid Calcium Phosphorus Total Bilirubin CK-MB (CK-2) Troponin T C-Reactive Protein NT-Pro-B Natriuret Pep Total Protein Albumin HDL Cholesterol Urine WBC (Auto) 43.0 H Crossmatch 08/29/17 08/29/17 08/29/17 03:30 04:10 10:58 WBC Hgb Hct MCV MCH MCHC RDW Lymph % (Auto) [place] % (Auto) Lymph # [place] # Seg Neutrophils % Seg Neuts % (Manual) Lymphocytes % (Manual) Monocytes % (Manual) Seg Neutrophils # Seg Neutrophils # Man Lymphocytes # (Manual) Monocytes # (Manual) PT INR POC ABG pH POC ABG pCO2 34.8 L POC ABG pO2 130 H Sodium Chloride Carbon Dioxide BUN 46 H Creatinine 1.7 H Glucose 121 H POC Glucose Lactic Acid Calcium 7.6 L Phosphorus Total Bilirubin CK-MB (CK-2) Troponin T C-Reactive Protein NT-Pro-B Natriuret Pep Total Protein Albumin HDL Cholesterol Urine WBC (Auto) Crossmatch 08/29/17 08/29/17 08/29/17 17:22 20:45 23:41 WBC Hgb Hct MCV MCH MCHC RDW Lymph % (Auto) [place] % (Auto) Lymph # [place] # Seg Neutrophils % Seg Neuts % (Manual) Lymphocytes % (Manual) Monocytes % (Manual) Seg Neutrophils # Seg Neutrophils # Man Lymphocytes # (Manual) Monocytes # (Manual) PT INR POC ABG pH POC ABG pCO2 POC ABG pO2 Sodium Chloride Carbon Dioxide BUN Creatinine Glucose POC Glucose 119 H 113 H Lactic Acid Calcium Phosphorus Total Bilirubin CK-MB (CK-2) Troponin T C-Reactive Protein 38.40 H NT-Pro-B Natriuret Pep Total Protein Albumin HDL Cholesterol Urine WBC (Auto) Crossmatch 08/30/17 08/30/17 08/30/17 04:00 04:00 04:00 WBC 15.1 H Hgb 9.2 L Hct 28.9 L MCV 74 L MCH 23 L MCHC RDW 23.5 H Lymph % (Auto) 6.3 L [place] % (Auto) Lymph # 1.0 L [place] # 1.1 H Seg Neutrophils % 86.5 H Seg Neuts % (Manual) Lymphocytes % (Manual) Monocytes % (Manual) Seg Neutrophils # 13.0 H Seg Neutrophils # Man Lymphocytes # (Manual) Monocytes # (Manual) PT INR POC ABG pH POC ABG pCO2 POC ABG pO2 Sodium Chloride 108.0 H Carbon Dioxide BUN 37 H Creatinine Glucose 112 H POC Glucose Lactic Acid Calcium 8.0 L Phosphorus 2.10 L Total Bilirubin CK-MB (CK-2) Troponin T C-Reactive Protein NT-Pro-B Natriuret Pep Total Protein Albumin HDL Cholesterol Urine WBC (Auto) Crossmatch 08/30/17 08/30/17 05:34 12:00 WBC Hgb Hct MCV MCH MCHC RDW Lymph % (Auto) [place] % (Auto) Lymph # [place] # Seg Neutrophils % Seg Neuts % (Manual) Lymphocytes % (Manual) Monocytes % (Manual) Seg Neutrophils # Seg Neutrophils # Man Lymphocytes # (Manual) Monocytes # (Manual) PT INR POC ABG pH POC ABG pCO2 POC ABG pO2 Sodium Chloride Carbon Dioxide BUN Creatinine Glucose POC Glucose 116 H 109 H Lactic Acid Calcium Phosphorus Total Bilirubin CK-MB (CK-2) Troponin T C-Reactive Protein NT-Pro-B Natriuret Pep Total Protein Albumin HDL Cholesterol Urine WBC (Auto) Crossmatch Chest x-ray: report reviewed, image reviewed
[2017-08-30] MEDS: CARDIZEM 100 MG in D5W 100 ML IV SCH (18:27)
[2017-08-31] MEDS: LOPRESSOR IV SCH (00:40)
[2017-08-31] MEDS: SODIUM CHLORIDE FLUSH SYRINGE 10 ML IV SCH (00:42)
[2017-08-31] MEDS: CARDIZEM 100 MG in D5W 100 ML IV SCH (03:16)
[2017-08-31] MEDS: NACL 0.9% 1000 ML 1,000 ML IV SCH ×3 (03:18→23:50)
[2017-08-31 04:56] LABS: Hematocrit 26.7 % (35.5-45.6); Hemoglobin 8.5 gm/dl (11.8-15.2); Mean Corpuscular HGB Conc 32 % (32-34); Mean Corpuscular Volume 73 fl (84-94); Platelet Count 223 K/mm3 (140-440); Red Blood Count 3.67 M/mm3 (3.65-5.03)
[2017-08-31 05:29] LABS: Mean Corpuscular Hemoglobin 23 pg (28-32); Red Cell Distribution Width 23.2 % (13.2-15.2)
[2017-08-31] MEDS: ATROVENT IH SCH ×3 (07:39→20:20)
[2017-08-31 08:44] LABS: Acanthocytes 1+; Anisocytosis 2+; Basophils % (Manual) 0 % (0.0-1.8); Burr Cells 1+; Eosinophils % (Manual) 0 % (0.0-4.3); Hypochromasia 2+; Poikilocytosis 2+; Total Cells Counted 100
[2017-08-31 08:45] LABS: Platelet Estimate Cons; Schistocytes Rare
[2017-08-31] MEDS: DIFLUCAN 200 MG/100 ML BAG IV SCH (09:18)
[2017-08-31] MEDS: MAXIPIME/NS 2 GM/100 ML 2 GM/100 ML BAG IV SCH ×2 (09:18→23:50)
[2017-08-31] MEDS: PEPCID IV SCH (09:20)
--- NOTE | 2017-08-31 09:25 | Event Note ---
Patient's renal function has normalized Will sign off the case please call if needed
--- NOTE | 2017-08-31 09:49 | Progress Note ---
Assessment and Plan Imp: 1. Urinary obstruction/retention -> r/o UTI 2. SIRS -> MSSA sepsis, probably urinary source 3. Acute respiratory failure, hypoxia 4. JULIÁN 5. Shock/hypotension, volume depletion + sepsis 6. Afib w/ RVR Rec: 1. Cont. IVFs for now but decrease rate 2. ST following 3. Afib w/ RVR per cardiology -> PO regimen started 4. ABX per ID 5. Surgery/Urology f/u 6. SCDs; resume anticoagulation if cleared by surgery and urology 7. PT evaluation/OOB 8. Reconsult psych to determine the appropriate bipolar regimen 9. Okay for floor [id number] 10. Complex decision-making; no family present Subjective Date of service: 08/31/17 Principal diagnosis: afib with RVR and CHF excacerbation Interval history: No events. Awake, alert. On NC. No SOB, chest pain, cough, sputum. Tolerating some pureed food. Active Medications Acetaminophen (Tylenol) 650 mg PO Q4H PRN PRN Reason: Pain MILD(1-3)/Fever >100.5/IRBY Last Admin: 08/27/17 01:07 Dose: 650 mg Atorvastatin Calcium (Lipitor) 20 mg PO QHS [facility] Last Admin: 08/30/17 21:52 Dose: 20 mg Diltiazem HCl (Cardizem) 60 mg PO Q8HR [facility] Last Admin: 08/31/17 14:03 Dose: 60 mg Famotidine (Pepcid) 20 mg PO BID [facility] Sodium Chloride (Nacl 0.9% 1000 Ml) 1,000 mls @ 50 mls/hr IV DIRECT [facility] Last Admin: 08/31/17 12:38 Dose: 125 mls/hr Cefepime HCl (Maxipime/Ns 2 Gm/100 Ml) 2 gm in 100 mls @ 200 mls/hr IV Q12HR [facility] Last Admin: 08/31/17 09:18 Dose: 200 mls/hr Fluconazole (Diflucan) 200 mg in 100 mls @ 100 mls/hr IV Q24HR [facility]; Protocol Last Admin: 08/31/17 09:18 Dose: 100 mls/hr Ipratropium [facility] [place] (Atrovent) 0.5 mg IH TIDRT [facility] Last Admin: 08/31/17 16:23 Dose: 0.5 mg Lorazepam (Ativan) 1 mg IV Q3HR PRN PRN Reason: Agitation Last Admin: 08/31/17 14:42 Dose: 1 mg Metoprolol Tartrate (Lopressor) 50 mg PO Q6HR [facility] Last Admin: 08/31/17 18:27 Dose: 50 mg Rivaroxaban (Xarelto) 20 mg PO QDAY [facility]; Protocol Sodium Chloride (Sodium Chloride Flush Syringe 10 Ml) 10 ml IV BID [facility] Last Admin: 08/31/17 00:42 Dose: 10 ml Sodium Chloride (Sodium Chloride Flush Syringe 10 Ml) 10 ml IV PRN PRN PRN Reason: LINE FLUSH Sodium Chloride (Nacl 0.9%) 1,000 ml IR PRN PRN PRN Reason: Wound Care Objective Vital Signs - 12hr 08/30/17 08/30/17 08/30/17 22:00 22:16 22:30 Temperature Pulse Rate 100 H 91 H 109 H Pulse Rate [ Anterior Upper Lobe] Respiratory 31 H 27 H 17 Rate Respiratory Rate [Anterior Upper Lobe] Blood Pressure 129/59 151/62 141/72 O2 Sat by Pulse 100 97 98 Oximetry 08/30/17 08/30/17 08/30/17 22:46 23:00 23:04 Temperature Pulse Rate 111 H 92 H 114 H Pulse Rate [ Anterior Upper Lobe] Respiratory 23 23 36 H Rate Respiratory Rate [Anterior Upper Lobe] Blood Pressure 141/72 141/72 148/70 O2 Sat by Pulse 97 98 98 Oximetry 08/30/17 08/30/17 08/30/17 23:16 23:30 23:46 Temperature Pulse Rate 124 H 110 H 96 H Pulse Rate [ Anterior Upper Lobe] Respiratory 23 30 H 23 Rate Respiratory Rate [Anterior Upper Lobe] Blood Pressure 148/70 151/67 151/67 O2 Sat by Pulse 98 98 98 Oximetry 08/30/17 08/31/17 08/31/17 23:51 00:00 00:16 Temperature 98.9 F Pulse Rate 93 H 96 H 90 Pulse Rate [ Anterior Upper Lobe] Respiratory 25 H 27 H 22 Rate Respiratory Rate [Anterior Upper Lobe] Blood Pressure 151/67 138/69 138/69 O2 Sat by Pulse 98 98 99 Oximetry 08/31/17 08/31/17 08/31/17 00:30 00:40 00:46 Temperature Pulse Rate 91 H 109 H 91 H Pulse Rate [ Anterior Upper Lobe] Respiratory 21 14 Rate Respiratory Rate [Anterior Upper Lobe] Blood Pressure 138/69 156/63 156/63 O2 Sat by Pulse 98 99 Oximetry 08/31/17 08/31/17 08/31/17 01:00 01:16 01:30 Temperature Pulse Rate 86 89 83 Pulse Rate [ Anterior Upper Lobe] Respiratory 11 L 27 H 15 Rate Respiratory Rate [Anterior Upper Lobe] Blood Pressure 150/67 150/67 148/74 O2 Sat by Pulse 100 100 100 Oximetry 08/31/17 08/31/17 08/31/17 01:46 02:00 02:05 Temperature Pulse Rate 97 H 91 H Pulse Rate [ Anterior Upper Lobe] Respiratory 16 17 Rate Respiratory Rate [Anterior Upper Lobe] Blood Pressure 148/74 158/74 O2 Sat by Pulse 100 100 98 Oximetry 08/31/17 08/31/17 08/31/17 02:16 02:30 02:46 Temperature Pulse Rate 101 H 98 H 95 H Pulse Rate [ Anterior Upper Lobe] Respiratory 24 19 19 Rate Respiratory Rate [Anterior Upper Lobe] Blood Pressure 158/74 158/74 124/58 O2 Sat by Pulse 99 99 100 Oximetry 08/31/17 08/31/17 08/31/17 03:00 03:16 03:24 Temperature Pulse Rate 93 H 97 H 99 H Pulse Rate [ Anterior Upper Lobe] Respiratory 23 19 32 H Rate Respiratory Rate [Anterior Upper Lobe] Blood Pressure 124/58 162/71 162/71 O2 Sat by Pulse 100 100 100 Oximetry 08/31/17 08/31/17 08/31/17 03:30 03:46 04:00 Temperature 99.1 F Pulse Rate 94 H 108 H 89 Pulse Rate [ Anterior Upper Lobe] Respiratory 22 15 12 Rate Respiratory Rate [Anterior Upper Lobe] Blood Pressure 124/58 159/68 159/68 O2 Sat by Pulse 100 99 99 Oximetry 08/31/17 08/31/17 08/31/17 04:05 04:16 04:30 Temperature Pulse Rate 94 H 77 Pulse Rate [ Anterior Upper Lobe] Respiratory 10 L 18 Rate Respiratory Rate [Anterior Upper Lobe] Blood Pressure 159/68 159/68 O2 Sat by Pulse 98 100 100 Oximetry 08/31/17 08/31/17 08/31/17 04:46 05:00 05:16 Temperature Pulse Rate 97 H 97 H 102 H Pulse Rate [ Anterior Upper Lobe] Respiratory 26 H 24 13 Rate Respiratory Rate [Anterior Upper Lobe] Blood Pressure 159/68 159/68 151/73 O2 Sat by Pulse 100 100 100 Oximetry 08/31/17 08/31/17 08/31/17 05:30 05:45 06:00 Temperature Pulse Rate 102 H 113 H Pulse Rate [ Anterior Upper Lobe] Respiratory 25 H 15 Rate Respiratory Rate [Anterior Upper Lobe] Blood Pressure 151/73 O2 Sat by Pulse 100 100 98 Oximetry 08/31/17 08/31/17 08/31/17 06:01 06:15 06:31 Temperature Pulse Rate 90 108 H 106 H Pulse Rate [ Anterior Upper Lobe] Respiratory 22 17 15 Rate Respiratory Rate [Anterior Upper Lobe] Blood Pressure 151/73 151/73 151/73 O2 Sat by Pulse 99 100 Oximetry 08/31/17 08/31/17 08/31/17 06:45 07:01 07:15 Temperature Pulse Rate 88 102 H 91 H Pulse Rate [ Anterior Upper Lobe] Respiratory 18 27 H 15 Rate Respiratory Rate [Anterior Upper Lobe] Blood Pressure 151/73 163/70 163/70 O2 Sat by Pulse Oximetry 08/31/17 08/31/17 08/31/17 07:30 07:38 07:39 Temperature Pulse Rate 93 H Pulse Rate [ 103 H Anterior Upper Lobe] Respiratory 40 H Rate Respiratory 30 H Rate [Anterior Upper Lobe] Blood Pressure 151/73 O2 Sat by Pulse 86 93 Oximetry 08/31/17 08/31/17 08/31/17 07:45 08:00 08:01 Temperature 99.1 F Pulse Rate 108 H 100 H Pulse Rate [ 105 H Anterior Upper Lobe] Respiratory 28 H 25 H Rate Respiratory 32 H Rate [Anterior Upper Lobe] Blood Pressure 163/70 148/75 O2 Sat by Pulse Oximetry 08/31/17 08/31/17 08:15 08:29 Temperature Pulse Rate 103 H Pulse Rate [ Anterior Upper Lobe] Respiratory 23 Rate Respiratory Rate [Anterior Upper Lobe] Blood Pressure 148/75 O2 Sat by Pulse 98 Oximetry Constitutional: no acute distress, alert Eyes: non-icteric Neck: supple Effort: normal Ascultation: Bilateral: clear (anteriorly) Cardiovascular: irregular rhythm (no mrg) Gastrointestinal: normoactive bowel sounds, soft, non-tender, non-distended Extremities: no cyanosis, no edema, pink and warm Neurologic: normal mental status, non-focal exam, pupils equal and round Psychiatric: mood appropriate, affect normal CBC and BMP: 08/31/17 04:30 08/30/17 04:00 ABG, PT/INR, D-dimer: ABG POC ABG pH 7.435 (7.35-7.45) 08/29/17 10:58 POC ABG pCO2 34.8 (35-45) L 08/29/17 10:58 POC ABG pO2 93 (80-105) 08/29/17 10:58 POC ABG HCO3 23.4 08/29/17 10:58 POC ABG Total CO2 24 08/29/17 10:58 POC ABG O2 Sat 98 08/29/17 10:58 PT/INR, D-dimer PT 22.5 Sec. (12.2-14.9) H 08/28/17 12:10 INR 1.85 (0.87-1.13) H 08/28/17 12:10 Abnormal lab findings: Abnormal Labs 08/23/17 08/23/17 08/23/17 02:54 02:54 02:54 WBC Hgb 10.7 L Hct 33.8 L MCV 71 L MCH 23 L MCHC RDW 22.8 H Lymph % (Auto) [place] % (Auto) 12.4 H Lymph # [place] # Seg Neutrophils % Seg Neuts % (Manual) Lymphocytes % (Manual) Monocytes % (Manual) Seg Neutrophils # Seg Neutrophils # Man Lymphocytes # (Manual) Monocytes # (Manual) PT INR POC ABG pH POC ABG pCO2 POC ABG pO2 Sodium Chloride Carbon Dioxide BUN 28 H Creatinine Glucose POC Glucose Lactic Acid Calcium Phosphorus Total Bilirubin CK-MB (CK-2) Troponin T 0.077 H C-Reactive Protein NT-Pro-B Natriuret Pep 24399 H Total Protein Albumin HDL Cholesterol 36 L Prostate Specific Ag Urine WBC (Auto) Crossmatch 08/23/17 08/23/17 08/23/17 05:03 05:13 10:56 WBC Hgb Hct MCV MCH MCHC RDW Lymph % (Auto) [place] % (Auto) Lymph # [place] # Seg Neutrophils % Seg Neuts % (Manual) Lymphocytes % (Manual) Monocytes % (Manual) Seg Neutrophils # Seg Neutrophils # Man Lymphocytes # (Manual) Monocytes # (Manual) PT 15.5 H INR 1.17 H POC ABG pH POC ABG pCO2 POC ABG pO2 Sodium Chloride Carbon Dioxide BUN Creatinine Glucose POC Glucose Lactic Acid Calcium Phosphorus Total Bilirubin CK-MB (CK-2) 4.4 H 4.4 H Troponin T 0.062 H 0.077 H D C-Reactive Protein NT-Pro-B Natriuret Pep Total Protein Albumin HDL Cholesterol Prostate Specific Ag Urine WBC (Auto) Crossmatch 08/23/17 08/24/17 08/24/17 20:28 04:00 04:00 WBC Hgb 11.1 L Hct 34.4 L MCV 71 L MCH 23 L MCHC RDW 22.5 H Lymph % (Auto) 5.6 L [place] % (Auto) 9.4 H Lymph # 0.6 L [place] # 1.0 H Seg Neutrophils % 84.8 H Seg Neuts % (Manual) Lymphocytes % (Manual) Monocytes % (Manual) Seg Neutrophils # 9.2 H Seg Neutrophils # Man Lymphocytes # (Manual) Monocytes # (Manual) PT INR POC ABG pH POC ABG pCO2 POC ABG pO2 52 L Sodium 146 H D Chloride Carbon Dioxide BUN 35 H Creatinine 1.8 H Glucose POC Glucose Lactic Acid Calcium Phosphorus Total Bilirubin CK-MB (CK-2) Troponin T C-Reactive Protein NT-Pro-B Natriuret Pep Total Protein Albumin HDL Cholesterol Prostate Specific Ag Urine WBC (Auto) Crossmatch 08/25/17 08/25/17 08/26/17 Unknown Unknown 04:20 WBC Hgb 10.7 L 10.2 L Hct 33.5 L 31.7 L MCV 70 L 70 L MCH 23 L 23 L MCHC RDW 22.5 H 22.2 H Lymph % (Auto) [place] % (Auto) Lymph # [place] # Seg Neutrophils % Seg Neuts % (Manual) Lymphocytes % (Manual) Monocytes % (Manual) Seg Neutrophils # Seg Neutrophils # Man Lymphocytes # (Manual) Monocytes # (Manual) PT INR POC ABG pH POC ABG pCO2 POC ABG pO2 Sodium Chloride Carbon Dioxide 31 H BUN 37 H Creatinine 1.6 H Glucose POC Glucose Lactic Acid Calcium Phosphorus Total Bilirubin CK-MB (CK-2) Troponin T C-Reactive Protein NT-Pro-B Natriuret Pep Total Protein Albumin HDL Cholesterol Prostate Specific Ag Urine WBC (Auto) Crossmatch 08/26/17 08/27/17 08/27/17 04:20 03:29 06:50 WBC Hgb 9.7 L Hct 30.7 L MCV 71 L MCH 23 L MCHC RDW 21.3 H Lymph % (Auto) [place] % (Auto) Lymph # [place] # Seg Neutrophils % Seg Neuts % (Manual) Lymphocytes % (Manual) Monocytes % (Manual) Seg Neutrophils # Seg Neutrophils # Man Lymphocytes # (Manual) Monocytes # (Manual) PT INR POC ABG pH POC ABG pCO2 POC ABG pO2 Sodium Chloride 95.6 L Carbon Dioxide 36 H BUN 30 H Creatinine Glucose 112 H POC Glucose 146 H Lactic Acid Calcium Phosphorus Total Bilirubin CK-MB (CK-2) Troponin T C-Reactive Protein NT-Pro-B Natriuret Pep Total Protein Albumin HDL Cholesterol Prostate Specific Ag Urine WBC (Auto) Crossmatch 08/27/17 08/27/17 08/27/17 06:50 09:12 15:40 WBC Hgb Hct MCV MCH MCHC RDW Lymph % (Auto) [place] % (Auto) Lymph # [place] # Seg Neutrophils % Seg Neuts % (Manual) Lymphocytes % (Manual) Monocytes % (Manual) Seg Neutrophils # Seg Neutrophils # Man Lymphocytes # (Manual) Monocytes # (Manual) PT 22.6 H INR 1.86 H POC ABG pH POC ABG pCO2 POC ABG pO2 Sodium Chloride 96.9 L Carbon Dioxide BUN 32 H Creatinine 1.9 H D Glucose 115 H POC Glucose 115 H Lactic Acid Calcium Phosphorus Total Bilirubin CK-MB (CK-2) Troponin T C-Reactive Protein NT-Pro-B Natriuret Pep Total Protein Albumin HDL Cholesterol Prostate Specific Ag Urine WBC (Auto) Crossmatch 08/27/17 08/28/17 08/28/17 20:03 01:04 02:40 WBC Hgb Hct MCV MCH MCHC RDW Lymph % (Auto) [place] % (Auto) Lymph # [place] # Seg Neutrophils % Seg Neuts % (Manual) Lymphocytes % (Manual) Monocytes % (Manual) Seg Neutrophils # Seg Neutrophils # Man Lymphocytes # (Manual) Monocytes # (Manual) PT INR POC ABG pH 7.328 L POC ABG pCO2 POC ABG pO2 Sodium 135 L Chloride 97.6 L Carbon Dioxide BUN 37 H Creatinine 2.5 H Glucose 127 H POC Glucose Lactic Acid Calcium 7.5 L Phosphorus Total Bilirubin CK-MB (CK-2) Troponin T C-Reactive Protein NT-Pro-B Natriuret Pep Total Protein Albumin HDL Cholesterol Prostate Specific Ag Urine WBC (Auto) Crossmatch See Detail 08/28/17 08/28/17 08/28/17 02:40 04:16 12:10 WBC 12.4 H 15.6 H Hgb 10.8 L 9.9 L Hct 34.5 L 31.2 L MCV 74 L 74 L MCH 23 L 23 L MCHC 31 L RDW 23.6 H 23.2 H Lymph % (Auto) 4.0 L [place] % (Auto) 8.8 H Lymph # 0.5 L [place] # 1.1 H Seg Neutrophils % 87.0 H Seg Neuts % (Manual) 89.0 H Lymphocytes % (Manual) 3.0 L Monocytes % (Manual) 8.0 H Seg Neutrophils # 10.8 H Seg Neutrophils # Man 13.9 H Lymphocytes # (Manual) 0.5 L Monocytes # (Manual) 1.2 H PT INR POC ABG pH POC ABG pCO2 POC ABG pO2 110 H Sodium Chloride Carbon Dioxide BUN Creatinine Glucose POC Glucose Lactic Acid Calcium Phosphorus Total Bilirubin CK-MB (CK-2) Troponin T C-Reactive Protein NT-Pro-B Natriuret Pep Total Protein Albumin HDL Cholesterol Prostate Specific Ag Urine WBC (Auto) Crossmatch 08/28/17 08/28/17 08/28/17 12:10 12:10 15:30 WBC Hgb Hct MCV MCH MCHC RDW Lymph % (Auto) [place] % (Auto) Lymph # [place] # Seg Neutrophils % Seg Neuts % (Manual) Lymphocytes % (Manual) Monocytes % (Manual) Seg Neutrophils # Seg Neutrophils # Man Lymphocytes # (Manual) Monocytes # (Manual) PT 22.5 H INR 1.85 H POC ABG pH POC ABG pCO2 POC ABG pO2 Sodium Chloride Carbon Dioxide BUN 40 H Creatinine 2.4 H Glucose 118 H POC Glucose Lactic Acid 2.90 H* Calcium 7.3 L Phosphorus Total Bilirubin 1.40 H CK-MB (CK-2) Troponin T C-Reactive Protein NT-Pro-B Natriuret Pep Total Protein 5.3 L Albumin 2.1 L HDL Cholesterol Prostate Specific Ag Urine WBC (Auto) Crossmatch 08/28/17 08/28/17 08/29/17 19:15 21:00 03:30 WBC 18.9 H Hgb 9.5 L Hct 29.8 L MCV 73 L MCH 23 L MCHC RDW 23.0 H Lymph % (Auto) 4.7 L [place] % (Auto) 9.2 H Lymph # 0.9 L [place] # 1.7 H Seg Neutrophils % 85.9 H Seg Neuts % (Manual) Lymphocytes % (Manual) Monocytes % (Manual) Seg Neutrophils # 16.2 H Seg Neutrophils # Man Lymphocytes # (Manual) Monocytes # (Manual) PT INR POC ABG pH POC ABG pCO2 POC ABG pO2 Sodium Chloride Carbon Dioxide BUN Creatinine Glucose POC Glucose 125 H Lactic Acid Calcium Phosphorus Total Bilirubin CK-MB (CK-2) Troponin T C-Reactive Protein NT-Pro-B Natriuret Pep Total Protein Albumin HDL Cholesterol Prostate Specific Ag Urine WBC (Auto) 43.0 H Crossmatch 08/29/17 08/29/17 08/29/17 03:30 04:10 10:58 WBC Hgb Hct MCV MCH MCHC RDW Lymph % (Auto) [place] % (Auto) Lymph # [place] # Seg Neutrophils % Seg Neuts % (Manual) Lymphocytes % (Manual) Monocytes % (Manual) Seg Neutrophils # Seg Neutrophils # Man Lymphocytes # (Manual) Monocytes # (Manual) PT INR POC ABG pH POC ABG pCO2 34.8 L POC ABG pO2 130 H Sodium Chloride Carbon Dioxide BUN 46 H Creatinine 1.7 H Glucose 121 H POC Glucose Lactic Acid Calcium 7.6 L Phosphorus Total Bilirubin CK-MB (CK-2) Troponin T C-Reactive Protein NT-Pro-B Natriuret Pep Total Protein Albumin HDL Cholesterol Prostate Specific Ag Urine WBC (Auto) Crossmatch 08/29/17 08/29/17 08/29/17 17:22 20:45 23:41 WBC Hgb Hct MCV MCH MCHC RDW Lymph % (Auto) [place] % (Auto) Lymph # [place] # Seg Neutrophils % Seg Neuts % (Manual) Lymphocytes % (Manual) Monocytes % (Manual) Seg Neutrophils # Seg Neutrophils # Man Lymphocytes # (Manual) Monocytes # (Manual) PT INR POC ABG pH POC ABG pCO2 POC ABG pO2 Sodium Chloride Carbon Dioxide BUN Creatinine Glucose POC Glucose 119 H 113 H Lactic Acid Calcium Phosphorus Total Bilirubin CK-MB (CK-2) Troponin T C-Reactive Protein 38.40 H NT-Pro-B Natriuret Pep Total Protein Albumin HDL Cholesterol Prostate Specific Ag Urine WBC (Auto) Crossmatch 08/30/17 08/30/17 08/30/17 04:00 04:00 04:00 WBC 15.1 H Hgb 9.2 L Hct 28.9 L MCV 74 L MCH 23 L MCHC RDW 23.5 H Lymph % (Auto) 6.3 L [place] % (Auto) Lymph # 1.0 L [place] # 1.1 H Seg Neutrophils % 86.5 H Seg Neuts % (Manual) Lymphocytes % (Manual) Monocytes % (Manual) Seg Neutrophils # 13.0 H Seg Neutrophils # Man Lymphocytes # (Manual) Monocytes # (Manual) PT INR POC ABG pH POC ABG pCO2 POC ABG pO2 Sodium Chloride 108.0 H Carbon Dioxide BUN 37 H Creatinine Glucose 112 H POC Glucose Lactic Acid Calcium 8.0 L Phosphorus 2.10 L Total Bilirubin CK-MB (CK-2) Troponin T C-Reactive Protein NT-Pro-B Natriuret Pep Total Protein Albumin HDL Cholesterol Prostate Specific Ag Urine WBC (Auto) Crossmatch 08/30/17 08/30/17 08/30/17 05:34 12:00 17:14 WBC Hgb Hct MCV MCH MCHC RDW Lymph % (Auto) [place] % (Auto) Lymph # [place] # Seg Neutrophils % Seg Neuts % (Manual) Lymphocytes % (Manual) Monocytes % (Manual) Seg Neutrophils # Seg Neutrophils # Man Lymphocytes # (Manual) Monocytes # (Manual) PT INR POC ABG pH POC ABG pCO2 POC ABG pO2 Sodium Chloride Carbon Dioxide BUN Creatinine Glucose POC Glucose 116 H 109 H 110 H Lactic Acid Calcium Phosphorus Total Bilirubin CK-MB (CK-2) Troponin T C-Reactive Protein NT-Pro-B Natriuret Pep Total Protein Albumin HDL Cholesterol Prostate Specific Ag Urine WBC (Auto) Crossmatch 08/30/17 08/30/17 08/31/17 18:11 23:17 04:30 WBC 12.8 H Hgb 8.5 L Hct 26.7 L MCV 73 L MCH 23 L MCHC RDW 23.2 H Lymph % (Auto) [place] % (Auto) Lymph # [place] # Seg Neutrophils % Seg Neuts % (Manual) 97.0 H Lymphocytes % (Manual) 1.0 L Monocytes % (Manual) Seg Neutrophils # Seg Neutrophils # Man 12.4 H Lymphocytes # (Manual) 0.1 L Monocytes # (Manual) PT INR POC ABG pH POC ABG pCO2 POC ABG pO2 Sodium Chloride Carbon Dioxide BUN Creatinine Glucose POC Glucose 126 H Lactic Acid Calcium Phosphorus Total Bilirubin CK-MB (CK-2) Troponin T C-Reactive Protein NT-Pro-B Natriuret Pep Total Protein Albumin HDL Cholesterol Prostate Specific Ag 96.82 H Urine WBC (Auto) Crossmatch Chest x-ray: report reviewed, image reviewed
--- NOTE | 2017-08-31 10:05 | Progress Note ---
Assessment and Plan Sepsis Acute on chronic diastolic heart failure Echo 04/2017 at [place] - LVEF 45-50% with moderate RV dysfunctioin Permanent atrial fibrillation on IV diltiazem History of CAD s/p PCI to LAD in 2011 History of ascending aortic aneurysm measuring [address] 03/2016 Chronic DVT on xarelto as an outpatient Chronic renal failure Systemic Hypertension Non-compliance Resume anticoagulation with either IV heparin or xarelto (renally dosed) if no further surgical procedures are planned. Transition to oral diltiazem and metoprolol when indicated. Medical therapy for heart failure with a preserved EF, coronary artery disease and atrial fibrillation as tolerated. Stable Subjective Date of service: 08/31/17 Principal diagnosis: afib with RVR and CHF excacerbation Interval history: No cardiac events overnight. Objective Vital Signs Temp Pulse Pulse Pulse Resp Resp Resp 08/31/17 08:29 08/31/17 08:15 103 H 23 08/31/17 08:01 100 H 25 H 08/31/17 08:00 99.1 F 08/31/17 07:45 108 H 105 H 28 H 32 H 08/31/17 07:39 08/31/17 07:38 103 H 30 H 08/31/17 07:30 93 H 40 H 08/31/17 07:15 91 H 15 08/31/17 07:01 102 H 27 H 08/31/17 06:45 88 18 08/31/17 06:31 106 H 15 08/31/17 06:15 108 H 17 08/31/17 06:01 90 22 08/31/17 06:00 08/31/17 05:45 113 H 15 08/31/17 05:30 102 H 25 H 08/31/17 05:16 102 H 13 08/31/17 05:00 97 H 24 08/31/17 04:46 97 H 26 H 08/31/17 04:30 77 18 08/31/17 04:16 94 H 10 L 08/31/17 04:05 08/31/17 04:00 99.1 F 89 12 08/31/17 03:46 108 H 15 08/31/17 03:30 94 H 22 08/31/17 03:24 99 H 32 H 08/31/17 03:16 97 H 19 08/31/17 03:00 93 H 23 08/31/17 02:46 95 H 19 08/31/17 02:30 98 H 19 08/31/17 02:16 101 H 24 08/31/17 02:05 08/31/17 02:00 91 H 17 08/31/17 01:46 97 H 16 08/31/17 01:30 83 15 08/31/17 01:16 89 27 H 08/31/17 01:00 86 11 L 08/31/17 00:46 91 H 14 08/31/17 00:40 109 H 08/31/17 00:30 91 H 21 08/31/17 00:16 90 22 08/31/17 00:00 98.9 F 96 H 27 H 08/30/17 23:51 93 H 25 H 08/30/17 23:46 96 H 23 08/30/17 23:30 110 H 30 H 08/30/17 23:16 124 H 23 08/30/17 23:04 114 H 36 H 08/30/17 23:00 92 H 23 08/30/17 22:46 111 H 23 08/30/17 22:30 109 H 17 08/30/17 22:16 91 H 27 H 08/30/17 22:00 100 H 31 H 08/30/17 21:46 101 H 13 08/30/17 21:30 99 H 15 08/30/17 21:16 100 H 13 08/30/17 21:00 102 H 13 08/30/17 20:46 105 H 23 08/30/17 20:30 98 H 22 08/30/17 20:24 114 H 22 08/30/17 20:16 106 H 31 H 08/30/17 20:14 108 H 22 08/30/17 20:00 99.5 F 125 H 23 08/30/17 19:46 117 H 21 08/30/17 19:30 112 H 22 08/30/17 19:16 102 H 24 08/30/17 19:00 105 H 33 H 08/30/17 18:46 96 H 18 08/30/17 18:30 116 H 31 H 08/30/17 18:28 90 08/30/17 18:16 106 H 28 H 08/30/17 18:00 111 H 16 08/30/17 17:46 115 H 19 08/30/17 17:30 118 H 31 H 0711/18 17:16 104 H 39 H 08/30/17 17:00 134 H 23 08/30/17 16:46 116 H 19 08/30/17 16:30 111 H 33 H 08/30/17 16:16 110 H 26 H 08/30/17 16:00 106 H 30 H 08/30/17 15:46 96 H 23 08/30/17 15:30 99 H 18 08/30/17 15:16 94 H 21 08/30/17 15:15 107 H 22 08/30/17 15:00 111 H 22 08/30/17 14:58 115 H 22 08/30/17 14:46 110 H 22 08/30/17 14:30 99 H 37 H 08/30/17 14:16 112 H 26 H 08/30/17 14:00 111 H 25 H 08/30/17 13:45 128 H 25 H 08/30/17 13:30 127 H 31 H 08/30/17 13:16 108 H 23 08/30/17 13:00 79 30 H 08/30/17 12:46 124 H 28 H 08/30/17 12:30 108 H 20 08/30/17 12:16 117 H 26 H 08/30/17 12:00 100 H 26 H 08/30/17 11:46 109 H 26 H 08/30/17 11:30 113 H 33 H 08/30/17 11:16 121 H 29 H 08/30/17 11:00 120 H 29 H 08/30/17 10:46 103 H 15 08/30/17 10:30 117 H 17 08/30/17 10:16 110 H 30 H BP Pulse Ox 08/31/17 08:29 98 08/31/17 08:15 148/75 08/31/17 08:01 148/75 08/31/17 08:00 08/31/17 07:45 163/70 08/31/17 07:39 93 08/31/17 07:38 08/31/17 07:30 151/73 86 08/31/17 07:15 163/70 08/31/17 07:01 163/70 08/31/17 06:45 151/73 08/31/17 06:31 151/73 08/31/17 06:15 151/73 100 07/12/18 06:01 151/73 99 18 06:00 98 08/31/17 05:45 151/73 100 08/31/17 05:30 100 08/31/17 05:16 151/73 100 08/31/17 05:00 159/68 100 08/31/17 04:46 159/68 100 08/31/17 04:30 159/68 100 08/31/17 04:16 159/68 100 08/31/17 04:05 98 08/31/17 04:00 159/68 99 08/31/17 03:46 159/68 99 08/31/17 03:30 124/58 100 08/31/17 03:24 162/71 100 08/31/17 03:16 162/71 100 08/31/17 03:00 124/58 100 08/31/17 02:46 124/58 100 08/31/17 02:30 158/74 99 08/31/17 02:16 158/74 99 08/31/17 02:05 98 08/31/17 02:00 158/74 100 08/31/17 01:46 148/74 100 08/31/17 01:30 148/74 100 08/31/17 01:16 150/67 100 08/31/17 01:00 150/67 100 08/31/17 00:46 156/63 99 08/31/17 00:40 156/63 08/31/17 00:30 138/69 98 08/31/17 00:16 138/69 99 08/31/17 00:00 138/69 98 08/30/17 23:51 151/67 98 08/30/17 23:46 151/67 98 08/30/17 23:30 151/67 98 08/30/17 23:16 148/70 98 08/30/17 23:04 148/70 98 08/30/17 23:00 141/72 98 08/30/17 22:46 141/72 97 08/30/17 22:30 141/72 98 08/30/17 22:16 151/62 97 08/30/17 22:00 129/59 100 08/30/17 21:46 129/59 95 08/30/17 21:30 151/77 91 08/30/17 21:16 151/77 90 07/18 21:00 151/77 87 08/30/17 20:46 148/74 97 08/30/17 20:30 169/84 96 08/30/17 20:24 08/30/17 20:16 169/84 100 08/30/17 20:14 94 08/30/17 20:00 169/84 98 08/30/17 19:46 160/74 97 08/30/17 19:30 160/74 96 08/30/17 19:16 160/74 98 08/30/17 19:00 153/66 99 08/30/17 18:46 153/66 97 08/30/17 18:30 153/66 99 08/30/17 18:28 138/62 08/30/17 18:16 138/62 99 08/30/17 18:00 169/121 96 08/30/17 17:46 169/121 96 08/30/17 17:30 151/70 96 08/30/17 17:16 151/70 89 08/30/17 17:00 155/89 95 08/30/17 16:46 155/89 99 08/30/17 16:30 127/78 98 08/30/17 16:16 127/78 98 08/30/17 16:00 124/92 98 08/30/17 15:46 124/92 99 08/30/17 15:30 124/92 95 08/30/17 15:16 124/92 96 08/30/17 15:15 08/30/17 15:00 145/80 100 08/30/17 14:58 08/30/17 14:46 145/80 99 08/30/17 14:30 145/80 98 08/30/17 14:16 145/80 99 08/30/17 14:00 161/75 98 08/30/17 13:45 176/124 100 08/30/17 13:30 136/66 98 08/30/17 13:16 136/66 100 08/30/17 13:00 176/69 98 08/30/17 12:46 136/66 96 08/30/17 12:30 136/66 100 08/30/17 12:16 136/66 100 08/30/17 12:00 142/61 100 08/30/17 11:46 142/61 100 08/30/17 11:30 142/61 94 08/30/17 11:16 126/57 99 08/30/17 11:00 129/86 99 08/30/17 10:46 152/68 100 08/30/17 10:30 152/68 99 08/30/17 10:16 152/68 100 - Physical Examination General: No Apparent Distress HEENT: Positive: PERRL Cardiac: Positive: irregularly irregular - Labs and Meds CBC 08/31/17 Range/Units 04:30 WBC 12.8 H (4.5-11.0) K/mm3 RBC 3.67 (3.65-5.03) M/mm3 Hgb 8.5 L (11.8-15.2) gm/dl Hct 26.7 L (35.5-45.6) % Plt Count 223 (140-440) K/mm3 - Imaging and Cardiology EKG: image reviewed
--- NOTE | 2017-08-31 11:31 | Progress Note ---
Assessment and Plan Assessment and plan: Acute hypoxemic respiratory failure Patient extubated on 08/29/17. Continue O2 to maintain sats. BiPAP as clinically indicated. Acute on chronic diastolic heart failure Echo 04/2017 at [facility] - LVEF 45-50%, moderate RV dysfunction, RVSP 49 mm Hg and dilated IVC Cont diuresis per Cardiology Permanent atrial fibrillation with RVR The patient will be transitioned from IV to oral diltiazem and metoprolol. Cardiology is following and recommends resuming anticoagulation with either IV heparin or xarelto (renally dosed) if no further surgical procedures are planned. Sepsis ID following. Continue IV antibiotics. Patient currently off pressors. Complicated UTI with urinary retention. -08/24/17 SP cath was placed -08/27/17 CT abd showed free air intraperitoneal, SP cath, high density material in the urinary bladder, prominent prostate and bilateral renal calculi. -08/27/17 taken to the OR for cysto, evacuation of clots and merida placement by due to acute retention and exlap with evacuation of large amount of blood 2 L from abdominal cavity by Surgery. No bowel perf found. -08/28/17 UA showed 43 wbc, large LE. History of CAD s/p PCI to LAD (2011) low salt diet and medical management History of ascending aortic aneurysm measuring [address] 03/2016 Chronic DVT on xarelto Acute renal failure Etiology likely secondary to Sepsis/ATN Consult Nephrology Systemic Hypertension Urinary retention Urology following Non-compliance History Interval history: No new issues overnight. Hospitalist Physical - Constitutional Vitals: Temp Pulse Resp BP Pulse Ox 99.1 F 103 H 23 151/79 95 08/31/17 08:00 08/31/17 10:01 08/31/17 10:01 08/31/17 10:01 08/31/17 10:01 General appearance: Present: other (orally intubated) - EENT Eyes: Present: PERRL, EOM intact ENT: hearing intact, clear oral mucosa, dentition normal - Neck Neck: Present: supple, normal ROM - Respiratory Respiratory effort: normal Respiratory: bilateral: CTA - Cardiovascular Rhythm: regular Heart Sounds: Present: S1 & S2. Absent: gallop, rub - Extremities Extremities: no ischemia, No edema, Full ROM - Abdominal General gastrointestinal: soft, non-tender, non-distended, normal bowel sounds - Integumentary Integumentary: Present: clear, warm, dry - Neurologic Neurologic: CNII-XII intact, moves all extremities Results - Labs CBC & Chem 7: 08/31/17 04:30 08/30/17 04:00 Labs: Laboratory Last Values WBC 12.8 K/mm3 (4.5-11.0) H 08/31/17 04:30 RBC 3.67 M/mm3 (3.65-5.03) 08/31/17 04:30 Hgb 8.5 gm/dl (11.8-15.2) L 08/31/17 04:30 Hct 26.7 % (35.5-45.6) L 08/31/17 04:30 MCV 73 fl (84-94) L 08/31/17 04:30 MCH 23 pg (28-32) L 08/31/17 04:30 MCHC 32 % (32-34) 08/31/17 04:30 RDW 23.2 % (13.2-15.2) H 08/31/17 04:30 Plt Count 223 K/mm3 (140-440) 08/31/17 04:30 Lymph % (Auto) 6.3 % (13.4-35.0) L 08/30/17 04:00 [place] % (Auto) 7.0 % (0.0-7.3) 08/30/17 04:00 Eos % (Auto) 0.1 % (0.0-4.3) 08/30/17 04:00 Baso % (Auto) 0.1 % (0.0-1.8) 08/30/17 04:00 Lymph # 1.0 K/mm3 (1.2-5.4) L 08/30/17 04:00 [place] # 1.1 K/mm3 (0.0-0.8) H 08/30/17 04:00 Eos # 0.0 K/mm3 (0.0-0.4) 08/30/17 04:00 Baso # 0.0 K/mm3 (0.0-0.1) 08/30/17 04:00 Add Manual Diff Complete 08/31/17 04:30 Total Counted 100 08/31/17 04:30 Seg Neutrophils % 86.5 % (40.0-70.0) H 08/30/17 04:00 Seg Neuts % (Manual) 97.0 % (40.0-70.0) H 08/31/17 04:30 Band Neutrophils % 0 % 08/31/17 04:30 Lymphocytes % (Manual) 1.0 % (13.4-35.0) L 08/31/17 04:30 Reactive Lymphs % (Man) 0 % 08/31/17 04:30 Monocytes % (Manual) 2.0 % (0.0-7.3) 08/31/17 04:30 Eosinophils % (Manual) 0 % (0.0-4.3) 08/31/17 04:30 Basophils % (Manual) 0 % (0.0-1.8) 08/31/17 04:30 Metamyelocytes % 0 % 08/31/17 04:30 Myelocytes % 0 % 08/31/17 04:30 Promyelocytes % 0 % 08/31/17 04:30 Blast Cells % 0 % 08/31/17 04:30 Nucleated RBC % Not Reportable 08/31/17 04:30 Seg Neutrophils # 13.0 K/mm3 (1.8-7.7) H 08/30/17 04:00 Seg Neutrophils # Man 12.4 K/mm3 (1.8-7.7) H 08/31/17 04:30 Band Neutrophils # 0.0 K/mm3 08/31/17 04:30 Lymphocytes # (Manual) 0.1 K/mm3 (1.2-5.4) L 08/31/17 04:30 Abs React Lymphs (Man) 0.0 K/mm3 08/31/17 04:30 Monocytes # (Manual) 0.3 K/mm3 (0.0-0.8) 08/31/17 04:30 Eosinophils # (Manual) 0.0 K/mm3 (0.0-0.4) 08/31/17 04:30 Basophils # (Manual) 0.0 K/mm3 (0.0-0.1) 08/31/17 04:30 Metamyelocytes # 0.0 K/mm3 08/31/17 04:30 Myelocytes # 0.0 K/mm3 08/31/17 04:30 Promyelocytes # 0.0 K/mm3 08/31/17 04:30 Blast Cells # 0.0 K/mm3 08/31/17 04:30 WBC Morphology Not Reportable 08/31/17 04:30 Hypersegmented Neuts Not Reportable 08/31/17 04:30 Hyposegmented Neuts Not Reportable 08/31/17 04:30 Hypogranular Neuts Not Reportable 08/31/17 04:30 Smudge Cells Not Reportable 08/31/17 04:30 Toxic Granulation Not Reportable 08/31/17 04:30 Toxic Vacuolation Not Reportable 08/31/17 04:30 Dohle Bodies Not Reportable 08/31/17 04:30 Pelger-Huet Anomaly Not Reportable 08/31/17 04:30 Cande Rods Not Reportable 08/31/17 04:30 Platelet Estimate Cons 08/31/17 04:30 Clumped Platelets Not Reportable 08/31/17 04:30 Plt Clumps, EDTA Not Reportable 08/31/17 04:30 Large Platelets Not Reportable 08/31/17 04:30 Giant Platelets Not Reportable 08/31/17 04:30 Platelet Satelliting Not Reportable 08/31/17 04:30 Plt Morphology Comment Not Reportable 08/31/17 04:30 RBC Morphology Not Reportable 08/31/17 04:30 Dimorphic RBCs Not Reportable 08/31/17 04:30 Polychromasia Not Reportable 08/31/17 04:30 Hypochromasia 2+ 08/31/17 04:30 Poikilocytosis 2+ 08/31/17 04:30 Anisocytosis 2+ 08/31/17 04:30 Microcytosis Not Reportable 08/31/17 04:30 Macrocytosis Not Reportable 08/31/17 04:30 Spherocytes Not Reportable 08/31/17 04:30 Pappenheimer Bodies Not Reportable 08/31/17 04:30 Sickle Cells Not Reportable 08/31/17 04:30 Target Cells Not Reportable 08/31/17 04:30 Tear Drop Cells Not Reportable 08/31/17 04:30 Ovalocytes Not Reportable 08/31/17 04:30 Helmet Cells Not Reportable 08/31/17 04:30 Morrell-Maunie Bodies Not Reportable 08/31/17 04:30 [place] Rings Not Reportable 08/31/17 04:30 James Cells 1+ 08/31/17 04:30 Bite Cells Not Reportable 08/31/17 04:30 Crenated Cell Not Reportable 08/31/17 04:30 Elliptocytes Not Reportable 08/31/17 04:30 Acanthocytes (Spur) 1+ 08/31/17 04:30 Rouleaux Not Reportable 08/31/17 04:30 Hemoglobin C Crystals Not Reportable 08/31/17 04:30 Schistocytes Rare 08/31/17 04:30 Malaria parasites Not Reportable 08/31/17 04:30 Jonny Bodies Not Reportable 08/31/17 04:30 Hem Pathologist Commnt No 08/31/17 04:30 PT 22.5 Sec. (12.2-14.9) H 08/28/17 12:10 INR 1.85 (0.87-1.13) H 08/28/17 12:10 APTT 32.3 Sec. (24.2-36.6) 08/28/17 12:10 POC ABG pH 7.435 (7.35-7.45) 08/29/17 10:58 POC ABG pCO2 34.8 (35-45) L 08/29/17 10:58 POC ABG pO2 93 (80-105) 08/29/17 10:58 POC ABG HCO3 23.4 08/29/17 10:58 POC ABG Total CO2 24 08/29/17 10:58 POC ABG O2 Sat 98 08/29/17 10:58 POC ABG Base Excess -1 08/29/17 10:58 FiO2 28 % 08/29/17 10:58 Sodium 143 mmol/L (137-145) 08/30/17 04:00 Potassium 3.9 mmol/L (3.6-5.0) 08/30/17 04:00 Chloride 108.0 mmol/L (98-107) H 08/30/17 04:00 Carbon Dioxide 23 mmol/L (22-30) 08/30/17 04:00 Anion Gap 16 mmol/L 08/30/17 04:00 BUN 37 mg/dL (9-20) H 08/30/17 04:00 Creatinine 1.1 mg/dL (0.8-1.5) 08/30/17 04:00 Estimated GFR > 60 ml/min 08/30/17 04:00 BUN/Creatinine Ratio 34 % 08/30/17 04:00 Glucose 112 mg/dL (75-100) H 08/30/17 04:00 POC Glucose 99 (70-105) 08/31/17 05:52 Lactic Acid 1.80 mmol/L (0.7-2.0) 08/28/17 Unknown Calcium 8.0 mg/dL (8.4-10.2) L 08/30/17 04:00 Phosphorus 2.10 mg/dL (2.5-4.5) L 08/30/17 04:00 Magnesium 2.30 mg/dL (1.7-2.3) 08/30/17 04:00 Total Bilirubin 1.40 mg/dL (0.1-1.2) H 08/28/17 12:10 AST 32 units/L (5-40) 08/28/17 12:10 ALT 16 units/L (7-56) 08/28/17 12:10 Alkaline Phosphatase 42 units/L (35-129) 08/28/17 12:10 Total Creatine Kinase 155 units/L (55-170) 08/23/17 10:56 CK-MB (CK-2) 4.4 ng/mL (0.0-4.0) H 08/23/17 10:56 CK-MB (CK-2) Rel Index 2.8 (0-4) 08/23/17 10:56 Troponin T 0.077 ng/mL (0.00-0.029) H D 08/23/17 10:56 C-Reactive Protein 38.40 mg/dL (0.00-1.30) H 08/29/17 20:45 NT-Pro-B Natriuret Pep 60346 pg/mL (0-900) H 08/23/17 02:54 Total Protein 5.3 g/dL (6.3-8.2) L 08/28/17 12:10 Albumin 2.1 g/dL (3.9-5) L 08/28/17 12:10 Albumin/Globulin Ratio 0.7 % 08/28/17 12:10 Triglycerides 69 mg/dL (2-149) 08/23/17 02:54 Cholesterol 125 mg/dL (50-199) 08/23/17 02:54 LDL Cholesterol Direct 77 mg/dL (50-130) 08/23/17 02:54 HDL Cholesterol 36 mg/dL (40-59) L 08/23/17 02:54 Cholesterol/HDL Ratio 3.47 % 08/23/17 02:54 Prostate Specific Ag 96.82 ng/mL (0.00-4.00) H 08/30/17 18:11 Urine Color Yellow (Yellow) 08/28/17 21:00 Urine Turbidity Clear (Clear) 08/28/17 21:00 Urine pH 5.0 (5.0-7.0) 08/28/17 21:00 Ur Specific [place] 1.005 (1.003-1.030) 08/28/17 21:00 Urine Protein <15 mg/dl mg/dL (Negative) 08/28/17 21:00 Urine Glucose (UA) Neg mg/dL (Negative) 08/28/17 21:00 Urine Ketones Neg mg/dL (Negative) 08/28/17 21:00 Urine Blood Lg (Negative) 08/28/17 21:00 Urine Nitrite Neg (Negative) 08/28/17 21:00 Urine Bilirubin Neg (Negative) 08/28/17 21:00 Urine Urobilinogen < 2.0 mg/dL (<2.0) 08/28/17 21:00 Ur Leukocyte Esterase Lg (Negative) 08/28/17 21:00 Urine WBC (Auto) 43.0 /HPF (0.0-6.0) H 08/28/17 21:00 Urine RBC (Auto) > 182.0 /HPF (0.0-6.0) 08/28/17 21:00 U Epithel Cells (Auto) < 1.0 /HPF (0-13.0) 08/28/17 21:00 Uric Acid Crystals 2+ 08/28/17 21:00 Urine Mucus Few /HPF 08/28/17 21:00 Blood Type B POSITIVE 08/27/17 20:03 Antibody Screen Negative 08/27/17 20:03 Crossmatch See Detail 08/27/17 20:03
--- NOTE | 2017-08-31 12:30 | Progress Note ---
Assessment and Plan urine gabriela resp improved keep merida Subjective Date of service: 08/31/17 Principal diagnosis: afib with RVR and CHF excacerbation Objective - Constitutional Vitals: Vital Signs - 12hr 08/31/17 08/31/17 08/31/17 00:30 00:40 00:46 Temperature Pulse Rate 91 H 109 H 91 H Pulse Rate [ Anterior Upper Lobe] Respiratory 21 14 Rate Respiratory Rate [Anterior Upper Lobe] Blood Pressure 138/69 156/63 156/63 O2 Sat by Pulse 98 99 Oximetry 08/31/17 08/31/17 08/31/17 01:00 01:16 01:30 Temperature Pulse Rate 86 89 83 Pulse Rate [ Anterior Upper Lobe] Respiratory 11 L 27 H 15 Rate Respiratory Rate [Anterior Upper Lobe] Blood Pressure 150/67 150/67 148/74 O2 Sat by Pulse 100 100 100 Oximetry 08/31/17 08/31/17 08/31/17 01:46 02:00 02:05 Temperature Pulse Rate 97 H 91 H Pulse Rate [ Anterior Upper Lobe] Respiratory 16 17 Rate Respiratory Rate [Anterior Upper Lobe] Blood Pressure 148/74 158/74 O2 Sat by Pulse 100 100 98 Oximetry 08/31/17 08/31/17 08/31/17 02:16 02:30 02:46 Temperature Pulse Rate 101 H 98 H 95 H Pulse Rate [ Anterior Upper Lobe] Respiratory 24 19 19 Rate Respiratory Rate [Anterior Upper Lobe] Blood Pressure 158/74 158/74 124/58 O2 Sat by Pulse 99 99 100 Oximetry 08/31/17 08/31/17 08/31/17 03:00 03:16 03:24 Temperature Pulse Rate 93 H 97 H 99 H Pulse Rate [ Anterior Upper Lobe] Respiratory 23 19 32 H Rate Respiratory Rate [Anterior Upper Lobe] Blood Pressure 124/58 162/71 162/71 O2 Sat by Pulse 100 100 100 Oximetry 08/31/17 08/31/17 08/31/17 03:30 03:46 04:00 Temperature 99.1 F Pulse Rate 94 H 108 H 89 Pulse Rate [ Anterior Upper Lobe] Respiratory 22 15 12 Rate Respiratory Rate [Anterior Upper Lobe] Blood Pressure 124/58 159/68 159/68 O2 Sat by Pulse 100 99 99 Oximetry 08/31/17 08/31/17 08/31/17 04:05 04:16 04:30 Temperature Pulse Rate 94 H 77 Pulse Rate [ Anterior Upper Lobe] Respiratory 10 L 18 Rate Respiratory Rate [Anterior Upper Lobe] Blood Pressure 159/68 159/68 O2 Sat by Pulse 98 100 100 Oximetry 08/31/17 08/31/17 08/31/17 04:46 05:00 05:16 Temperature Pulse Rate 97 H 97 H 102 H Pulse Rate [ Anterior Upper Lobe] Respiratory 26 H 24 13 Rate Respiratory Rate [Anterior Upper Lobe] Blood Pressure 159/68 159/68 151/73 O2 Sat by Pulse 100 100 100 Oximetry 08/31/17 08/31/17 08/31/17 05:30 05:45 06:00 Temperature Pulse Rate 102 H 113 H Pulse Rate [ Anterior Upper Lobe] Respiratory 25 H 15 Rate Respiratory Rate [Anterior Upper Lobe] Blood Pressure 151/73 O2 Sat by Pulse 100 100 98 Oximetry 08/31/17 08/31/17 08/31/17 06:01 06:15 06:31 Temperature Pulse Rate 90 108 H 106 H Pulse Rate [ Anterior Upper Lobe] Respiratory 22 17 15 Rate Respiratory Rate [Anterior Upper Lobe] Blood Pressure 151/73 151/73 151/73 O2 Sat by Pulse 99 100 Oximetry 08/31/17 08/31/17 08/31/17 06:45 07:01 07:15 Temperature Pulse Rate 88 102 H 91 H Pulse Rate [ Anterior Upper Lobe] Respiratory 18 27 H 15 Rate Respiratory Rate [Anterior Upper Lobe] Blood Pressure 151/73 163/70 163/70 O2 Sat by Pulse Oximetry 08/31/17 08/31/17 08/31/17 07:30 07:38 07:39 Temperature Pulse Rate 93 H Pulse Rate [ 103 H Anterior Upper Lobe] Respiratory 40 H Rate Respiratory 30 H Rate [Anterior Upper Lobe] Blood Pressure 151/73 O2 Sat by Pulse 86 93 Oximetry 08/31/17 08/31/17 08/31/17 07:45 08:00 08:01 Temperature 99.1 F Pulse Rate 108 H 100 H Pulse Rate [ 105 H Anterior Upper Lobe] Respiratory 28 H 25 H Rate Respiratory 32 H Rate [Anterior Upper Lobe] Blood Pressure 163/70 148/75 O2 Sat by Pulse Oximetry 08/31/17 08/31/17 08/31/17 08:15 08:29 08:31 Temperature Pulse Rate 103 H 105 H Pulse Rate [ Anterior Upper Lobe] Respiratory 23 22 Rate Respiratory Rate [Anterior Upper Lobe] Blood Pressure 148/75 160/70 O2 Sat by Pulse 98 97 Oximetry 08/31/17 08/31/17 08/31/17 08:45 09:01 09:15 Temperature Pulse Rate 105 H 109 H 101 H Pulse Rate [ Anterior Upper Lobe] Respiratory 18 23 25 H Rate Respiratory Rate [Anterior Upper Lobe] Blood Pressure 160/70 154/65 154/65 O2 Sat by Pulse Oximetry 08/31/17 08/31/17 08/31/17 09:31 09:45 10:00 Temperature Pulse Rate 114 H 94 H Pulse Rate [ Anterior Upper Lobe] Respiratory 22 22 Rate Respiratory Rate [Anterior Upper Lobe] Blood Pressure 140/68 140/68 O2 Sat by Pulse 98 Oximetry 08/31/17 08/31/17 08/31/17 10:01 10:15 10:31 Temperature Pulse Rate 103 H 108 H 111 H Pulse Rate [ Anterior Upper Lobe] Respiratory 23 34 H 35 H Rate Respiratory Rate [Anterior Upper Lobe] Blood Pressure 151/79 151/79 147/62 O2 Sat by Pulse 95 87 Oximetry 08/31/17 08/31/17 08/31/17 10:45 11:01 11:15 Temperature Pulse Rate 101 H 103 H 97 H Pulse Rate [ Anterior Upper Lobe] Respiratory 21 37 H 38 H Rate Respiratory Rate [Anterior Upper Lobe] Blood Pressure 147/62 147/62 147/62 O2 Sat by Pulse 96 97 Oximetry 08/31/17 08/31/17 11:31 11:45 Temperature Pulse Rate 96 H 92 H Pulse Rate [ Anterior Upper Lobe] Respiratory 28 H 27 H Rate Respiratory Rate [Anterior Upper Lobe] Blood Pressure 144/71 144/71 O2 Sat by Pulse 99 98 Oximetry General appearance: Present: no acute distress Extremities: no ischemia - Labs CBC & Chem 7: 08/31/17 04:30 08/30/17 04:00 Labs: Abnormal lab results 08/27/17 08/30/17 08/30/17 Range/Units 20:03 17:14 18:11 WBC (4.5-11.0) K/mm3 Hgb (11.8-15.2) gm/dl Hct (35.5-45.6) % MCV (84-94) fl MCH (28-32) pg RDW (13.2-15.2) % Seg Neuts % (Manual) (40.0-70.0) % Lymphocytes % (Manual) (13.4-35.0) % Seg Neutrophils # Man (1.8-7.7) K/mm3 Lymphocytes # (Manual) (1.2-5.4) K/mm3 POC Glucose 110 H (70-105) Prostate Specific Ag 96.82 H (0.00-4.00) ng/mL Crossmatch See Detail 08/30/17 08/31/17 08/31/17 Range/Units 23:17 04:30 12:24 WBC 12.8 H (4.5-11.0) K/mm3 Hgb 8.5 L (11.8-15.2) gm/dl Hct 26.7 L (35.5-45.6) % MCV 73 L (84-94) fl MCH 23 L (28-32) pg RDW 23.2 H (13.2-15.2) % Seg Neuts % (Manual) 97.0 H (40.0-70.0) % Lymphocytes % (Manual) 1.0 L (13.4-35.0) % Seg Neutrophils # Man 12.4 H (1.8-7.7) K/mm3 Lymphocytes # (Manual) 0.1 L (1.2-5.4) K/mm3 POC Glucose 126 H 137 H (70-105) Prostate Specific Ag (0.00-4.00) ng/mL Crossmatch
[2017-08-31] MEDS: LOPRESSOR PO SCH ×3 (12:55→23:50)
[2017-08-31] MEDS: CARDIZEM PO SCH ×2 (14:03→22:26)
[2017-08-31] MEDS: ATIVAN IV PRN (14:42)
[2017-08-31] MEDS: PEPCID PO SCH (22:26)
[2017-09-01] MEDS: LOPRESSOR PO SCH ×3 (06:47→19:08)
[2017-09-01] MEDS: SODIUM CHLORIDE FLUSH SYRINGE 10 ML IV SCH ×4 (06:47→22:37)
[2017-09-01] MEDS: CARDIZEM PO SCH ×3 (06:47→22:36)
[2017-09-01] MEDS: ATROVENT IH SCH ×3 (07:39→19:46)
[2017-09-01 07:48] LABS: Hematocrit 28.2 % (35.5-45.6); Hemoglobin 9.1 gm/dl (11.8-15.2); Mean Corpuscular HGB Conc 32 % (32-34); Mean Corpuscular Volume 72 fl (84-94); Platelet Count 263 K/mm3 (140-440); Red Blood Count 3.93 M/mm3 (3.65-5.03)
[2017-09-01 07:52] LABS: Mean Corpuscular Hemoglobin 23 pg (28-32); Red Cell Distribution Width 23.5 % (13.2-15.2)
[2017-09-01 07:57] LABS: BUN/Creatinine Ratio 23; Blood Urea Nitrogen 16 mg/dL (9-20); Calcium 8.8 mg/dL (8.4-10.2); Hemolysis Index 0
[2017-09-01 08:40] LABS: Anisocytosis 2+; Basophils % (Manual) 0 % (0.0-1.8); Poikilocytosis 2+; Total Cells Counted 100
[2017-09-01 08:41] LABS: Acanthocytes 1+; Burr Cells 1+; Hypochromasia 2+; Platelet Estimate Cons; Schistocytes Few; Target Cells Few
--- NOTE | 2017-09-01 10:37 | Progress Note ---
Assessment and Plan Assessment and plan: Acute hypoxemic respiratory failure Patient extubated on 08/29/17. Continue O2 to maintain sats. BiPAP as clinically indicated. Acute on chronic diastolic heart failure Echo 04/2017 at [place] - LVEF 45-50%, moderate RV dysfunction, RVSP 49 mm Hg and dilated IVC Cont diuresis per Cardiology Permanent atrial fibrillation with RVR Continue Cardizem for rate control. Patient also on Xarelto. Patient no longer needing renal dose with normal creatinine at 0.7. Cardiology following. Sepsis ID following. Continue IV antibiotics. Patient currently off pressors. Complicated UTI with urinary retention. -08/24/17 SP cath was placed -08/27/17 CT abd showed free air intraperitoneal, SP cath, high density material in the urinary bladder, prominent prostate and bilateral renal calculi. -08/27/17 taken to the OR for cysto, evacuation of clots and merida placement by due to acute retention and exlap with evacuation of large amount of blood 2 L from abdominal cavity by Surgery. No bowel perf found. -08/28/17 UA showed 43 wbc, large LE. History of CAD s/p PCI to LAD (2011) low salt diet and medical management History of ascending aortic aneurysm measuring [address] 03/2016 Chronic DVT on xarelto Acute renal failure Etiology likely secondary to Sepsis/ATN Resolving. Nephrology following. Systemic Hypertension Urinary retention Urology following Non-compliance History Interval history: No new issues overnight. Hospitalist Physical - Constitutional Vitals: Temp Pulse Resp BP Pulse Ox 98.5 F 114 H 20 156/79 92 09/01/17 09:01 09/01/17 09:01 09/01/17 09:01 09/01/17 09:01 09/01/17 09:01 General appearance: Present: no acute distress - EENT Eyes: Present: PERRL, EOM intact ENT: hearing intact, clear oral mucosa, dentition normal - Neck Neck: Present: supple, normal ROM - Respiratory Respiratory effort: normal Respiratory: bilateral: diminished, rhonchi - Cardiovascular Rhythm: regular Heart Sounds: Present: S1 & S2. Absent: gallop, rub - Extremities Extremities: no ischemia, No edema, Full ROM - Abdominal General gastrointestinal: soft, non-tender, non-distended, normal bowel sounds - Integumentary Integumentary: Present: clear, warm, dry - Neurologic Neurologic: CNII-XII intact, moves all extremities Results - Labs CBC & Chem 7: 09/01/17 07:02 09/01/17 07:02 Labs: Laboratory Last Values WBC 13.6 K/mm3 (4.5-11.0) H 09/01/17 07:02 RBC 3.93 M/mm3 (3.65-5.03) 09/01/17 07:02 Hgb 9.1 gm/dl (11.8-15.2) L 09/01/17 07:02 Hct 28.2 % (35.5-45.6) L 09/01/17 07:02 MCV 72 fl (84-94) L 09/01/17 07:02 MCH 23 pg (28-32) L 09/01/17 07:02 MCHC 32 % (32-34) 09/01/17 07:02 RDW 23.5 % (13.2-15.2) H 09/01/17 07:02 Plt Count 263 K/mm3 (140-440) 09/01/17 07:02 Lymph % (Auto) 6.3 % (13.4-35.0) L 08/30/17 04:00 [place] % (Auto) 7.0 % (0.0-7.3) 08/30/17 04:00 Eos % (Auto) 0.1 % (0.0-4.3) 08/30/17 04:00 Baso % (Auto) 0.1 % (0.0-1.8) 08/30/17 04:00 Lymph # 1.0 K/mm3 (1.2-5.4) L 08/30/17 04:00 [place] # 1.1 K/mm3 (0.0-0.8) H 08/30/17 04:00 Eos # 0.0 K/mm3 (0.0-0.4) 08/30/17 04:00 Baso # 0.0 K/mm3 (0.0-0.1) 08/30/17 04:00 Add Manual Diff Complete 09/01/17 07:02 Total Counted 100 09/01/17 07:02 Seg Neutrophils % 86.5 % (40.0-70.0) H 08/30/17 04:00 Seg Neuts % (Manual) 93.0 % (40.0-70.0) H 09/01/17 07:02 Band Neutrophils % 0 % 09/01/17 07:02 Lymphocytes % (Manual) 3.0 % (13.4-35.0) L 09/01/17 07:02 Reactive Lymphs % (Man) 0 % 09/01/17 07:02 Monocytes % (Manual) 2.0 % (0.0-7.3) 09/01/17 07:02 Eosinophils % (Manual) 2.0 % (0.0-4.3) 09/01/17 07:02 Basophils % (Manual) 0 % (0.0-1.8) 09/01/17 07:02 Metamyelocytes % 0 % 09/01/17 07:02 Myelocytes % 0 % 09/01/17 07:02 Promyelocytes % 0 % 09/01/17 07:02 Blast Cells % 0 % 09/01/17 07:02 Nucleated RBC % Not Reportable 09/01/17 07:02 Seg Neutrophils # 13.0 K/mm3 (1.8-7.7) H 08/30/17 04:00 Seg Neutrophils # Man 12.6 K/mm3 (1.8-7.7) H 09/01/17 07:02 Band Neutrophils # 0.0 K/mm3 09/01/17 07:02 Lymphocytes # (Manual) 0.4 K/mm3 (1.2-5.4) L 09/01/17 07:02 Abs React Lymphs (Man) 0.0 K/mm3 09/01/17 07:02 Monocytes # (Manual) 0.3 K/mm3 (0.0-0.8) 09/01/17 07:02 Eosinophils # (Manual) 0.3 K/mm3 (0.0-0.4) 09/01/17 07:02 Basophils # (Manual) 0.0 K/mm3 (0.0-0.1) 09/01/17 07:02 Metamyelocytes # 0.0 K/mm3 09/01/17 07:02 Myelocytes # 0.0 K/mm3 09/01/17 07:02 Promyelocytes # 0.0 K/mm3 09/01/17 07:02 Blast Cells # 0.0 K/mm3 09/01/17 07:02 WBC Morphology Not Reportable 09/01/17 07:02 Hypersegmented Neuts Not Reportable 09/01/17 07:02 Hyposegmented Neuts Not Reportable 09/01/17 07:02 Hypogranular Neuts Not Reportable 09/01/17 07:02 Smudge Cells Not Reportable 09/01/17 07:02 Toxic Granulation Not Reportable 09/01/17 07:02 Toxic Vacuolation Not Reportable 09/01/17 07:02 Dohle Bodies Not Reportable 09/01/17 07:02 Pel[place]-Huet Anomaly Not Reportable 09/01/17 07:02 Cande Rods Not Reportable 09/01/17 07:02 Platelet Estimate Cons 09/01/17 07:02 Clumped Platelets Not Reportable 09/01/17 07:02 Plt Clumps, EDTA Not Reportable 09/01/17 07:02 Large Platelets Not Reportable 09/01/17 07:02 Giant Platelets Not Reportable 09/01/17 07:02 Platelet Satelliting Not Reportable 09/01/17 07:02 Plt Morphology Comment Not Reportable 09/01/17 07:02 RBC Morphology Not Reportable 09/01/17 07:02 Dimorphic RBCs Not Reportable 09/01/17 07:02 Polychromasia Not Reportable 09/01/17 07:02 Hypochromasia 2+ 09/01/17 07:02 Poikilocytosis 2+ 09/01/17 07:02 Anisocytosis 2+ 09/01/17 07:02 Microcytosis Not Reportable 09/01/17 07:02 Macrocytosis Not Reportable 09/01/17 07:02 Spherocytes Not Reportable 09/01/17 07:02 Pappenheimer Bodies Not Reportable 09/01/17 07:02 Sickle Cells Not Reportable 09/01/17 07:02 Target Cells Few 09/01/17 07:02 Tear Drop Cells Not Reportable 09/01/17 07:02 Ovalocytes Not Reportable 09/01/17 07:02 Helmet Cells Not Reportable 09/01/17 07:02 [place] Bodies Not Reportable 09/01/17 07:02 [place] Rings Not Reportable 09/01/17 07:02 [place] Cells 1+ 09/01/17 07:02 Bite Cells Not Reportable 09/01/17 07:02 Crenated Cell Not Reportable 09/01/17 07:02 Elliptocytes Not Reportable 09/01/17 07:02 Acanthocytes (Spur) 1+ 09/01/17 07:02 Rouleaux Not Reportable 09/01/17 07:02 Hemoglobin C Crystals Not Reportable 09/01/17 07:02 Schistocytes Few 09/01/17 07:02 Malaria parasites Not Reportable 09/01/17 07:02 Jonny Bodies Not Reportable 09/01/17 07:02 Hem Pathologist Commnt No 09/01/17 07:02 PT 22.5 Sec. (12.2-14.9) H 08/28/17 12:10 INR 1.85 (0.87-1.13) H 08/28/17 12:10 APTT 32.3 Sec. (24.2-36.6) 08/28/17 12:10 POC ABG pH 7.435 (7.35-7.45) 08/29/17 10:58 POC ABG pCO2 34.8 (35-45) L 08/29/17 10:58 POC ABG pO2 93 (80-105) 08/29/17 10:58 POC ABG HCO3 23.4 08/29/17 10:58 POC ABG Total CO2 24 08/29/17 10:58 POC ABG O2 Sat 98 08/29/17 10:58 POC ABG Base Excess -1 08/29/17 10:58 FiO2 28 % 08/29/17 10:58 Sodium 143 mmol/L (137-145) 09/01/17 07:02 Potassium 3.2 mmol/L (3.6-5.0) L 09/01/17 07:02 Chloride 106.4 mmol/L (98-107) 09/01/17 07:02 Carbon Dioxide 25 mmol/L (22-30) 09/01/17 07:02 Anion Gap 15 mmol/L 09/01/17 07:02 BUN 16 mg/dL (9-20) 09/01/17 07:02 Creatinine 0.7 mg/dL (0.8-1.5) L 09/01/17 07:02 Estimated GFR > 60 ml/min 09/01/17 07:02 BUN/Creatinine Ratio 23 % 09/01/17 07:02 Glucose 107 mg/dL (75-100) H 09/01/17 07:02 POC Glucose 137 (70-105) H 08/31/17 12:24 Lactic Acid 1.80 mmol/L (0.7-2.0) 08/28/17 Unknown Calcium 8.8 mg/dL (8.4-10.2) 09/01/17 07:02 Phosphorus 2.10 mg/dL (2.5-4.5) L 08/30/17 04:00 Magnesium 2.30 mg/dL (1.7-2.3) 08/30/17 04:00 Total Bilirubin 1.40 mg/dL (0.1-1.2) H 08/28/17 12:10 AST 32 units/L (5-40) 08/28/17 12:10 ALT 16 units/L (7-56) 08/28/17 12:10 Alkaline Phosphatase 42 units/L (35-129) 08/28/17 12:10 Total Creatine Kinase 155 units/L (55-170) 08/23/17 10:56 CK-MB (CK-2) 4.4 ng/mL (0.0-4.0) H 08/23/17 10:56 CK-MB (CK-2) Rel Index 2.8 (0-4) 08/23/17 10:56 Troponin T 0.077 ng/mL (0.00-0.029) H D 08/23/17 10:56 C-Reactive Protein 38.40 mg/dL (0.00-1.30) H 08/29/17 20:45 NT-Pro-B Natriuret Pep 68634 pg/mL (0-900) H 08/23/17 02:54 Total Protein 5.3 g/dL (6.3-8.2) L 08/28/17 12:10 Albumin 2.1 g/dL (3.9-5) L 08/28/17 12:10 Albumin/Globulin Ratio 0.7 % 08/28/17 12:10 Triglycerides 69 mg/dL (2-149) 08/23/17 02:54 Cholesterol 125 mg/dL (50-199) 08/23/17 02:54 LDL Cholesterol Direct 77 mg/dL (50-130) 08/23/17 02:54 HDL Cholesterol 36 mg/dL (40-59) L 08/23/17 02:54 Cholesterol/HDL Ratio 3.47 % 08/23/17 02:54 Prostate Specific Ag 96.82 ng/mL (0.00-4.00) H 08/30/17 18:11 Urine Color Yellow (Yellow) 08/28/17 21:00 Urine Turbidity Clear (Clear) 08/28/17 21:00 Urine pH 5.0 (5.0-7.0) 08/28/17 21:00 Ur Specific [place] 1.005 (1.003-1.030) 08/28/17 21:00 Urine Protein <15 mg/dl mg/dL (Negative) 08/28/17 21:00 Urine Glucose (UA) Neg mg/dL (Negative) 08/28/17 21:00 Urine Ketones Neg mg/dL (Negative) 08/28/17 21:00 Urine Blood Lg (Negative) 08/28/17 21:00 Urine Nitrite Neg (Negative) 08/28/17 21:00 Urine Bilirubin Neg (Negative) 08/28/17 21:00 Urine Urobilinogen < 2.0 mg/dL (<2.0) 08/28/17 21:00 Ur Leukocyte Esterase Lg (Negative) 08/28/17 21:00 Urine WBC (Auto) 43.0 /HPF (0.0-6.0) H 08/28/17 21:00 Urine RBC (Auto) > 182.0 /HPF (0.0-6.0) 08/28/17 21:00 U Epithel Cells (Auto) < 1.0 /HPF (0-13.0) 08/28/17 21:00 Uric Acid Crystals 2+ 08/28/17 21:00 Urine Mucus Few /HPF 08/28/17 21:00 Blood Type B POSITIVE 08/27/17 20:03 Antibody Screen Negative 08/27/17 20:03 Crossmatch See Detail 08/27/17 20:03
--- NOTE | 2017-09-01 10:46 | Progress Note ---
Assessment and Plan Sepsis Acute on chronic diastolic heart failure Echo 04/2017 at [place] - LVEF 45-50% with moderate RV dysfunctioin Permanent atrial fibrillation on diltiazem and metoprolol for rate control. History of CAD s/p PCI to LAD in 2011 History of ascending aortic aneurysm measuring [address] 03/2016 Chronic DVT on xarelto as an outpatient Chronic renal failure Systemic Hypertension Non-compliance Continue anticoagulation for his chronic atrial fibrillation. Continue medical therapy for heart failure with a preserved EF, coronary artery disease and atrial fibrillation. Subjective Date of service: 09/01/17 Principal diagnosis: afib with RVR and CHF excacerbation Interval history: Rapid afib on telemetry monitoring. Objective Vital Signs Temp Pulse Pulse Resp Resp BP BP 09/01/17 09:01 98.5 F 114 H 20 156/79 09/01/17 08:24 98.7 F 102 H 24 208/102 09/01/17 02:42 09/01/17 00:27 97.8 F 109 H 20 174/84 08/31/17 22:26 102 H 129/76 08/31/17 22:00 100 H 08/31/17 20:36 08/31/17 20:32 82 20 08/31/17 20:20 79 20 08/31/17 20:15 98.4 F 102 H 20 129/76 08/31/17 18:27 95 H 08/31/17 16:45 95 H 33 H 08/31/17 16:30 102 H 35 H 08/31/17 16:23 104 H 22 08/31/17 16:15 94 H 26 H 154/71 08/31/17 16:01 95 H 22 154/71 08/31/17 15:45 97 H 29 H 158/70 08/31/17 15:31 103 H 25 H 106/73 08/31/17 15:15 101 H 29 H 106/73 08/31/17 15:01 99 H 28 H 117/81 08/31/17 14:45 99 H 26 H 117/81 08/31/17 14:31 103 H 26 H 117/81 08/31/17 14:15 101 H 26 H 135/72 08/31/17 14:01 101 H 32 H 135/72 08/31/17 13:45 115 H 36 H 160/95 08/31/17 13:31 96 H 28 H 160/95 08/31/17 13:15 90 35 H 160/95 08/31/17 13:01 99 H 29 H 160/95 08/31/17 12:45 87 43 H 160/95 08/31/17 12:30 110 H 29 H 160/95 08/31/17 12:15 106 H 33 H 138/91 08/31/17 12:00 98.0 F 93 H 27 H 144/71 08/31/17 11:45 92 H 27 H 144/71 08/31/17 11:31 96 H 28 H 144/71 08/31/17 11:15 97 H 38 H 147/62 08/31/17 11:01 103 H 37 H 147/62 08/31/17 10:45 101 H 21 147/62 Pulse Ox 09/01/17 09:01 92 09/01/17 08:24 88 09/01/17 02:42 98 09/01/17 00:27 95 08/31/17 22:26 08/31/17 22:00 08/31/17 20:36 98 08/31/17 20:32 08/31/17 20:20 08/31/17 20:15 93 08/31/17 18:27 08/31/17 16:45 95 08/31/17 16:30 96 08/31/17 16:23 08/31/17 16:15 98 08/31/17 16:01 98 08/31/17 15:45 98 08/31/17 15:31 98 08/31/17 15:15 99 08/31/17 15:01 99 08/31/17 14:45 100 08/31/17 14:31 99 08/31/17 14:15 87 08/31/17 14:01 100 08/31/17 13:45 95 08/31/17 13:31 97 08/31/17 13:15 98 08/31/17 13:01 100 08/31/17 12:45 98 08/31/17 12:30 98 08/31/17 12:15 95 08/31/17 12:00 98 08/31/17 11:45 98 08/31/17 11:31 99 08/31/17 11:15 08/31/17 11:01 97 08/31/17 10:45 96 - Physical Examination General: No Apparent Distress HEENT: Positive: PERRL Cardiac: Positive: irregularly irregular Neuro: Positive: Weakness - Labs and Meds CBC 09/01/17 Range/Units 07:02 WBC 13.6 H (4.5-11.0) K/mm3 RBC 3.93 (3.65-5.03) M/mm3 Hgb 9.1 L (11.8-15.2) gm/dl Hct 28.2 L (35.5-45.6) % Plt Count 263 (140-440) K/mm3 Comprehensive Metabolic Panel 09/01/17 Range/Units 07:02 Sodium 143 (137-145) mmol/L Potassium 3.2 L (3.6-5.0) mmol/L Chloride 106.4 (98-107) mmol/L Carbon Dioxide 25 (22-30) mmol/L BUN 16 (9-20) mg/dL Creatinine 0.7 L (0.8-1.5) mg/dL Glucose 107 H (75-100) mg/dL Calcium 8.8 (8.4-10.2) mg/dL - Imaging and Cardiology EKG: image reviewed
--- NOTE | 2017-09-01 10:50 | Progress Note ---
Assessment and Plan Assessment: 1) Sepsis with transient septic shock: still mild leukocytosis. Etiology most likely UTI. -blood cx neg 2) Complicated UTI: with urinary retention -08/24/17 SP cath was placed -08/27/17 CT abd showed free air intraperitoneal, SP cath, high density material in the urinary bladder, prominent prostate and bilateral renal calculi. -08/27/17 taken to the OR for cysto, evacuation of clots and merida placement by due to acute retention and exlap with evacuation of large amount of blood 2 L from abdominal cavity by Surgery. No bowel perf found. -08/28/17 UA showed 43 wbc, large LE. 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 Plan: -stop cefepime, fluconazole and vancomycin renally dosed -start cefazolin D4/10 Discussed with Pharmacist Renata I am rounding this weekend Thanks Kelly Pérez MD Infectious Diseases Specialist [facility] M [phone] O [phone] Subjective Date of service: 09/01/17 Principal diagnosis: afib with RVR and CHF excacerbation Interval history: More alert, talking, no fever sitting at bedside, still bladder irrigation Microbiology: Blood cultures: 08/28 neg Urine cultures: 08/28 MSSA Respiratory cultures: 08/28 MSSA Current Antimicrobials: cefepime vanco prn fluconazole Objective - Exam Narrative Exam: General appearance: Alert in NAD, conversant anxious on CPAP Eyes: anicteric sclerae, moist conjunctivae; no lid-lag; PERRLA HENT: Atraumatic; oropharynx CPAP mask Neck: Trachea midline; supple, no thyromegaly or lymphadenopathy Lungs: CTA, with normal respiratory effort and no intercostal retractions CV: tachy Abdomen: Soft, surg wound with dressings, drain with blood ? merida w hematuria Extremities: No peripheral edema or extremity lymphadenopathy Skin: Normal temperature, turgor and texture; no rash, ulcers or subcutaneous nodules Psych: Appropriate affect, alert and oriented to person, place and time. Neuro: alert and oriented x 3. Moving all extermities Lines: right SC TLC - Constitutional Vitals: Vital Signs Temp Pulse Resp BP Pulse Ox 98.5 F 114 H 20 156/79 92 09/01/17 09:01 09/01/17 09:01 09/01/17 09:01 09/01/17 09:01 09/01/17 09:01 Temperature -Last 24 Hours Temperature 98.5 F Temperature 98.7 F Temperature 97.8 F Temperature 98.4 F Temperature 98.0 F - Labs CBC & Chem 7: 09/01/17 07:02 09/01/17 07:02 Labs: Abnormal lab results 08/31/17 09/01/17 09/01/17 Range/Units 12:24 07:02 07:02 WBC 13.6 H (4.5-11.0) K/mm3 Hgb 9.1 L (11.8-15.2) gm/dl Hct 28.2 L (35.5-45.6) % MCV 72 L (84-94) fl MCH 23 L (28-32) pg RDW 23.5 H (13.2-15.2) % Seg Neuts % (Manual) 93.0 H (40.0-70.0) % Lymphocytes % (Manual) 3.0 L (13.4-35.0) % Seg Neutrophils # Man 12.6 H (1.8-7.7) K/mm3 Lymphocytes # (Manual) 0.4 L (1.2-5.4) K/mm3 Potassium 3.2 L (3.6-5.0) mmol/L Creatinine 0.7 L (0.8-1.5) mg/dL Glucose 107 H (75-100) mg/dL POC Glucose 137 H (70-105)
[2017-09-01] MEDS: ceFAZolin 2 GM in NACL 0.9% 100 ML IV SCH ×2 (11:36→22:35)
[2017-09-01] MEDS: PEPCID PO SCH ×2 (11:37→22:36)
[2017-09-01] MEDS: XARELTO PO SCH (11:37)
[2017-09-01] MEDS: NACL 0.9% 1000 ML 1,000 ML IV SCH (11:39)
[2017-09-01] MEDS ORDERED: K-DUR PO ONE (15:06)
--- NOTE | 2017-09-01 15:09 | Progress Note ---
Assessment and Plan Imp: 1. Urinary obstruction/retention -> r/o UTI 2. SIRS -> MSSA sepsis, probably urinary source 3. Acute respiratory failure, hypoxia 4. JULIÁN 5. Shock/hypotension, volume depletion + sepsis 6. Afib w/ RVR Rec: 1. Stop IVFs; replete K 2. ST following 3. Afib w/ RVR per cardiology -> PO regimen started 4. ABX per ID 5. Surgery f/u needed re: JIM drain removal 6. SCDs; anticoagulation per cardiology 7. PT evaluation/OOB 8. Recommend reconsulting psych to determine the appropriate bipolar regimen Plan of care reviewed w/ patient, he understands/agrees Subjective Date of service: 09/01/17 Principal diagnosis: afib with RVR and CHF excacerbation Interval history: No events. Awake, alert. On RA. No SOB, chest pain, cough, sputum. Tolerating some pureed food. States he needs to be discharged to go to a "[place]" tonight. Active Medications Acetaminophen (Tylenol) 650 mg PO Q4H PRN PRN Reason: Pain MILD(1-3)/Fever >100.5/IRBY Last Admin: 08/27/17 01:07 Dose: 650 mg Atorvastatin Calcium (Lipitor) 20 mg PO QHS REPLACED BY [facility] Last Admin: 08/31/17 22:26 Dose: 20 mg Diltiazem HCl (Cardizem) 60 mg PO Q8HR REPLACED BY [facility] Last Admin: 09/01/17 06:47 Dose: 60 mg Famotidine (Pepcid) 20 mg PO BID REPLACED BY [facility] Last Admin: 09/01/17 11:37 Dose: 20 mg Cefazolin Sodium 2 gm/ Sodium (Chloride) 100 mls @ 200 mls/hr IV Q8HR REPLACED BY [facility] Last Admin: 09/01/17 11:36 Dose: 200 mls/hr Ipratropium [place] (Atrovent) 0.5 mg IH TIDRT REPLACED BY [facility] Last Admin: 09/01/17 13:50 Dose: 0.5 mg Lorazepam (Ativan) 1 mg IV Q3HR PRN PRN Reason: Agitation Last Admin: 08/31/17 14:42 Dose: 1 mg Metoprolol Tartrate (Lopressor) 50 mg PO Q6HR REPLACED BY [facility] Last Admin: 09/01/17 13:23 Dose: 50 mg Potassium Chloride (K-Dur) 40 meq PO ONCE ONE Stop: 09/01/17 15:07 Rivaroxaban (Xarelto) 20 mg PO QDAY REPLACED BY [facility]; Protocol Last Admin: 09/01/17 11:37 Dose: 20 mg Sodium Chloride (Sodium Chloride Flush Syringe 10 Ml) 10 ml IV BID PATRICK Last Admin: 09/01/17 13:23 Dose: Not Given Sodium Chloride (Sodium Chloride Flush Syringe 10 Ml) 10 ml IV PRN PRN PRN Reason: LINE FLUSH Last Admin: 09/01/17 11:39 Dose: 10 ml Sodium Chloride (Nacl 0.9%) 1,000 ml IR PRN PRN PRN Reason: Wound Care Objective Vital Signs - 12hr 09/01/17 09/01/17 09/01/17 07:39 07:49 08:24 Temperature 98.7 F Pulse Rate 102 H Pulse Rate [ 119 H 121 H Anterior Bilateral Throughout] Respiratory 24 Rate Respiratory 20 20 Rate [Anterior Bilateral Throughout] Blood Pressure 208/102 Blood Pressure [Right] O2 Sat by Pulse 88 Oximetry 09/01/17 09/01/17 09/01/17 09:01 10:00 12:32 Temperature 98.5 F 98.7 F Pulse Rate 114 H 81 Pulse Rate [ Anterior Bilateral Throughout] Respiratory 20 22 Rate Respiratory Rate [Anterior Bilateral Throughout] Blood Pressure 152/67 Blood Pressure 156/79 [Right] O2 Sat by Pulse 92 100 84 Oximetry 09/01/17 13:23 Temperature Pulse Rate 81 Pulse Rate [ Anterior Bilateral Throughout] Respiratory Rate Respiratory Rate [Anterior Bilateral Throughout] Blood Pressure 152/67 Blood Pressure [Right] O2 Sat by Pulse Oximetry Constitutional: no acute distress, alert Eyes: non-icteric Neck: supple Effort: normal Ascultation: Bilateral: clear (anteriorly) Cardiovascular: irregular rhythm (no mrg) Gastrointestinal: normoactive bowel sounds, soft, non-tender, non-distended Extremities: no cyanosis, no edema, pink and warm Neurologic: normal mental status, non-focal exam, pupils equal and round Psychiatric: mood appropriate, affect normal CBC and BMP: 09/01/17 07:02 09/01/17 07:02 ABG, PT/INR, D-dimer: ABG POC ABG pH 7.435 (7.35-7.45) 08/29/17 10:58 POC ABG pCO2 34.8 (35-45) L 08/29/17 10:58 POC ABG pO2 93 (80-105) 08/29/17 10:58 POC ABG HCO3 23.4 08/29/17 10:58 POC ABG Total CO2 24 08/29/17 10:58 POC ABG O2 Sat 98 08/29/17 10:58 PT/INR, D-dimer PT 22.5 Sec. (12.2-14.9) H 08/28/17 12:10 INR 1.85 (0.87-1.13) H 08/28/17 12:10 Abnormal lab findings: Abnormal Labs 08/23/17 08/23/17 08/23/17 02:54 02:54 02:54 WBC Hgb 10.7 L Hct 33.8 L MCV 71 L MCH 23 L MCHC RDW 22.8 H Lymph % (Auto) [place] % (Auto) 12.4 H Lymph # [place] # Seg Neutrophils % Seg Neuts % (Manual) Lymphocytes % (Manual) Monocytes % (Manual) Seg Neutrophils # Seg Neutrophils # Man Lymphocytes # (Manual) Monocytes # (Manual) PT INR POC ABG pH POC ABG pCO2 POC ABG pO2 Sodium Potassium Chloride Carbon Dioxide BUN 28 H Creatinine Glucose POC Glucose Lactic Acid Calcium Phosphorus Total Bilirubin CK-MB (CK-2) Troponin T 0.077 H C-Reactive Protein NT-Pro-B Natriuret Pep 78305 H Total Protein Albumin HDL Cholesterol 36 L Prostate Specific Ag Urine WBC (Auto) Crossmatch 08/23/17 08/23/17 08/23/17 05:03 05:13 10:56 WBC Hgb Hct MCV MCH MCHC RDW Lymph % (Auto) [place] % (Auto) Lymph # [place] # Seg Neutrophils % Seg Neuts % (Manual) Lymphocytes % (Manual) Monocytes % (Manual) Seg Neutrophils # Seg Neutrophils # Man Lymphocytes # (Manual) Monocytes # (Manual) PT 15.5 H INR 1.17 H POC ABG pH POC ABG pCO2 POC ABG pO2 Sodium Potassium Chloride Carbon Dioxide BUN Creatinine Glucose POC Glucose Lactic Acid Calcium Phosphorus Total Bilirubin CK-MB (CK-2) 4.4 H 4.4 H Troponin T 0.062 H 0.077 H D C-Reactive Protein NT-Pro-B Natriuret Pep Total Protein Albumin HDL Cholesterol Prostate Specific Ag Urine WBC (Auto) Crossmatch 0708/24/17 08/24/17 20:28 04:00 04:00 WBC Hgb 11.1 L Hct 34.4 L MCV 71 L MCH 23 L MCHC RDW 22.5 H Lymph % (Auto) 5.6 L [place] % (Auto) 9.4 H Lymph # 0.6 L [place] # 1.0 H Seg Neutrophils % 84.8 H Seg Neuts % (Manual) Lymphocytes % (Manual) Monocytes % (Manual) Seg Neutrophils # 9.2 H Seg Neutrophils # Man Lymphocytes # (Manual) Monocytes # (Manual) PT INR POC ABG pH POC ABG pCO2 POC ABG pO2 52 L Sodium 146 H D Potassium Chloride Carbon Dioxide BUN 35 H Creatinine 1.8 H Glucose POC Glucose Lactic Acid Calcium Phosphorus Total Bilirubin CK-MB (CK-2) Troponin T C-Reactive Protein NT-Pro-B Natriuret Pep Total Protein Albumin HDL Cholesterol Prostate Specific Ag Urine WBC (Auto) Crossmatch 08/25/17 08/25/17 08/26/17 Unknown Unknown 04:20 WBC Hgb 10.7 L 10.2 L Hct 33.5 L 31.7 L MCV 70 L 70 L MCH 23 L 23 L MCHC RDW 22.5 H 22.2 H Lymph % (Auto) [place] % (Auto) Lymph # [place] # Seg Neutrophils % Seg Neuts % (Manual) Lymphocytes % (Manual) Monocytes % (Manual) Seg Neutrophils # Seg Neutrophils # Man Lymphocytes # (Manual) Monocytes # (Manual) PT INR POC ABG pH POC ABG pCO2 POC ABG pO2 Sodium Potassium Chloride Carbon Dioxide 31 H BUN 37 H Creatinine 1.6 H Glucose POC Glucose Lactic Acid Calcium Phosphorus Total Bilirubin CK-MB (CK-2) Troponin T C-Reactive Protein NT-Pro-B Natriuret Pep Total Protein Albumin HDL Cholesterol Prostate Specific Ag Urine WBC (Auto) Crossmatch 08/26/17 08/27/17 08/27/17 04:20 03:29 06:50 WBC Hgb 9.7 L Hct 30.7 L MCV 71 L MCH 23 L MCHC RDW 21.3 H Lymph % (Auto) [place] % (Auto) Lymph # [place] # Seg Neutrophils % Seg Neuts % (Manual) Lymphocytes % (Manual) Monocytes % (Manual) Seg Neutrophils # Seg Neutrophils # Man Lymphocytes # (Manual) Monocytes # (Manual) PT INR POC ABG pH POC ABG pCO2 POC ABG pO2 Sodium Potassium Chloride 95.6 L Carbon Dioxide 36 H BUN 30 H Creatinine Glucose 112 H POC Glucose 146 H Lactic Acid Calcium Phosphorus Total Bilirubin CK-MB (CK-2) Troponin T C-Reactive Protein NT-Pro-B Natriuret Pep Total Protein Albumin HDL Cholesterol Prostate Specific Ag Urine WBC (Auto) Crossmatch 08/27/17 08/27/17 08/27/17 06:50 09:12 15:40 WBC Hgb Hct MCV MCH MCHC RDW Lymph % (Auto) [place] % (Auto) Lymph # [place] # Seg Neutrophils % Seg Neuts % (Manual) Lymphocytes % (Manual) Monocytes % (Manual) Seg Neutrophils # Seg Neutrophils # Man Lymphocytes # (Manual) Monocytes # (Manual) PT 22.6 H INR 1.86 H POC ABG pH POC ABG pCO2 POC ABG pO2 Sodium Potassium Chloride 96.9 L Carbon Dioxide BUN 32 H Creatinine 1.9 H D Glucose 115 H POC Glucose 115 H Lactic Acid Calcium Phosphorus Total Bilirubin CK-MB (CK-2) Troponin T C-Reactive Protein NT-Pro-B Natriuret Pep Total Protein Albumin HDL Cholesterol Prostate Specific Ag Urine WBC (Auto) Crossmatch 08/27/17 08/28/17 08/28/17 20:03 01:04 02:40 WBC Hgb Hct MCV MCH MCHC RDW Lymph % (Auto) [place] % (Auto) Lymph # [place] # Seg Neutrophils % Seg Neuts % (Manual) Lymphocytes % (Manual) Monocytes % (Manual) Seg Neutrophils # Seg Neutrophils # Man Lymphocytes # (Manual) Monocytes # (Manual) PT INR POC ABG pH 7.328 L POC ABG pCO2 POC ABG pO2 Sodium 135 L Potassium Chloride 97.6 L Carbon Dioxide BUN 37 H Creatinine 2.5 H Glucose 127 H POC Glucose Lactic Acid Calcium 7.5 L Phosphorus Total Bilirubin CK-MB (CK-2) Troponin T C-Reactive Protein NT-Pro-B Natriuret Pep Total Protein Albumin HDL Cholesterol Prostate Specific Ag Urine WBC (Auto) Crossmatch See Detail 08/28/17 08/28/17 08/28/17 02:40 04:16 12:10 WBC 12.4 H 15.6 H Hgb 10.8 L 9.9 L Hct 34.5 L 31.2 L MCV 74 L 74 L MCH 23 L 23 L MCHC 31 L RDW 23.6 H 23.2 H Lymph % (Auto) 4.0 L [place] % (Auto) 8.8 H Lymph # 0.5 L [place] # 1.1 H Seg Neutrophils % 87.0 H Seg Neuts % (Manual) 89.0 H Lymphocytes % (Manual) 3.0 L Monocytes % (Manual) 8.0 H Seg Neutrophils # 10.8 H Seg Neutrophils # Man 13.9 H Lymphocytes # (Manual) 0.5 L Monocytes # (Manual) 1.2 H PT INR POC ABG pH POC ABG pCO2 POC ABG pO2 110 H Sodium Potassium Chloride Carbon Dioxide BUN Creatinine Glucose POC Glucose Lactic Acid Calcium Phosphorus Total Bilirubin CK-MB (CK-2) Troponin T C-Reactive Protein NT-Pro-B Natriuret Pep Total Protein Albumin HDL Cholesterol Prostate Specific Ag Urine WBC (Auto) Crossmatch 08/28/17 08/28/17 08/28/17 12:10 12:10 15:30 WBC Hgb Hct MCV MCH MCHC RDW Lymph % (Auto) [place] % (Auto) Lymph # [place] # Seg Neutrophils % Seg Neuts % (Manual) Lymphocytes % (Manual) Monocytes % (Manual) Seg Neutrophils # Seg Neutrophils # Man Lymphocytes # (Manual) Monocytes # (Manual) PT 22.5 H INR 1.85 H POC ABG pH POC ABG pCO2 POC ABG pO2 Sodium Potassium Chloride Carbon Dioxide BUN 40 H Creatinine 2.4 H Glucose 118 H POC Glucose Lactic Acid 2.90 H* Calcium 7.3 L Phosphorus Total Bilirubin 1.40 H CK-MB (CK-2) Troponin T C-Reactive Protein NT-Pro-B Natriuret Pep Total Protein 5.3 L Albumin 2.1 L HDL Cholesterol Prostate Specific Ag Urine WBC (Auto) Crossmatch 08/28/17 08/28/17 08/29/17 19:15 21:00 03:30 WBC 18.9 H Hgb 9.5 L Hct 29.8 L MCV 73 L MCH 23 L MCHC RDW 23.0 H Lymph % (Auto) 4.7 L [place] % (Auto) 9.2 H Lymph # 0.9 L [place] # 1.7 H Seg Neutrophils % 85.9 H Seg Neuts % (Manual) Lymphocytes % (Manual) Monocytes % (Manual) Seg Neutrophils # 16.2 H Seg Neutrophils # Man Lymphocytes # (Manual) Monocytes # (Manual) PT INR POC ABG pH POC ABG pCO2 POC ABG pO2 Sodium Potassium Chloride Carbon Dioxide BUN Creatinine Glucose POC Glucose 125 H Lactic Acid Calcium Phosphorus Total Bilirubin CK-MB (CK-2) Troponin T C-Reactive Protein NT-Pro-B Natriuret Pep Total Protein Albumin HDL Cholesterol Prostate Specific Ag Urine WBC (Auto) 43.0 H Crossmatch 08/29/17 08/29/17 08/29/17 03:30 04:10 10:58 WBC Hgb Hct MCV MCH MCHC RDW Lymph % (Auto) [place] % (Auto) Lymph # [place] # Seg Neutrophils % Seg Neuts % (Manual) Lymphocytes % (Manual) Monocytes % (Manual) Seg Neutrophils # Seg Neutrophils # Man Lymphocytes # (Manual) Monocytes # (Manual) PT INR POC ABG pH POC ABG pCO2 34.8 L POC ABG pO2 130 H Sodium Potassium Chloride Carbon Dioxide BUN 46 H Creatinine 1.7 H Glucose 121 H POC Glucose Lactic Acid Calcium 7.6 L Phosphorus Total Bilirubin CK-MB (CK-2) Troponin T C-Reactive Protein NT-Pro-B Natriuret Pep Total Protein Albumin HDL Cholesterol Prostate Specific Ag Urine WBC (Auto) Crossmatch 08/29/17 08/29/17 08/29/17 17:22 20:45 23:41 WBC Hgb Hct MCV MCH MCHC RDW Lymph % (Auto) [place] % (Auto) Lymph # [place] # Seg Neutrophils % Seg Neuts % (Manual) Lymphocytes % (Manual) Monocytes % (Manual) Seg Neutrophils # Seg Neutrophils # Man Lymphocytes # (Manual) Monocytes # (Manual) PT INR POC ABG pH POC ABG pCO2 POC ABG pO2 Sodium Potassium Chloride Carbon Dioxide BUN Creatinine Glucose POC Glucose 119 H 113 H Lactic Acid Calcium Phosphorus Total Bilirubin CK-MB (CK-2) Troponin T C-Reactive Protein 38.40 H NT-Pro-B Natriuret Pep Total Protein Albumin HDL Cholesterol Prostate Specific Ag Urine WBC (Auto) Crossmatch 08/30/17 08/30/17 08/30/17 04:00 04:00 04:00 WBC 15.1 H Hgb 9.2 L Hct 28.9 L MCV 74 L MCH 23 L MCHC RDW 23.5 H Lymph % (Auto) 6.3 L [place] % (Auto) Lymph # 1.0 L [place] # 1.1 H Seg Neutrophils % 86.5 H Seg Neuts % (Manual) Lymphocytes % (Manual) Monocytes % (Manual) Seg Neutrophils # 13.0 H Seg Neutrophils # Man Lymphocytes # (Manual) Monocytes # (Manual) PT INR POC ABG pH POC ABG pCO2 POC ABG pO2 Sodium Potassium Chloride 108.0 H Carbon Dioxide BUN 37 H Creatinine Glucose 112 H POC Glucose Lactic Acid Calcium 8.0 L Phosphorus 2.10 L Total Bilirubin CK-MB (CK-2) Troponin T C-Reactive Protein NT-Pro-B Natriuret Pep Total Protein Albumin HDL Cholesterol Prostate Specific Ag Urine WBC (Auto) Crossmatch 08/30/17 08/30/17 08/30/17 05:34 12:00 17:14 WBC Hgb Hct MCV MCH MCHC RDW Lymph % (Auto) [place] % (Auto) Lymph # [place] # Seg Neutrophils % Seg Neuts % (Manual) Lymphocytes % (Manual) Monocytes % (Manual) Seg Neutrophils # Seg Neutrophils # Man Lymphocytes # (Manual) Monocytes # (Manual) PT INR POC ABG pH POC ABG pCO2 POC ABG pO2 Sodium Potassium Chloride Carbon Dioxide BUN Creatinine Glucose POC Glucose 116 H 109 H 110 H Lactic Acid Calcium Phosphorus Total Bilirubin CK-MB (CK-2) Troponin T C-Reactive Protein NT-Pro-B Natriuret Pep Total Protein Albumin HDL Cholesterol Prostate Specific Ag Urine WBC (Auto) Crossmatch 08/30/17 08/30/17 08/31/17 18:11 23:17 04:30 WBC 12.8 H Hgb 8.5 L Hct 26.7 L MCV 73 L MCH 23 L MCHC RDW 23.2 H Lymph % (Auto) [place] % (Auto) Lymph # [place] # Seg Neutrophils % Seg Neuts % (Manual) 97.0 H Lymphocytes % (Manual) 1.0 L Monocytes % (Manual) Seg Neutrophils # Seg Neutrophils # Man 12.4 H Lymphocytes # (Manual) 0.1 L Monocytes # (Manual) PT INR POC ABG pH POC ABG pCO2 POC ABG pO2 Sodium Potassium Chloride Carbon Dioxide BUN Creatinine Glucose POC Glucose 126 H Lactic Acid Calcium Phosphorus Total Bilirubin CK-MB (CK-2) Troponin T C-Reactive Protein NT-Pro-B Natriuret Pep Total Protein Albumin HDL Cholesterol Prostate Specific Ag 96.82 H Urine WBC (Auto) Crossmatch 08/31/17 09/01/17 09/01/17 12:24 07:02 07:02 WBC 13.6 H Hgb 9.1 L Hct 28.2 L MCV 72 L MCH 23 L MCHC RDW 23.5 H Lymph % (Auto) [place] % (Auto) Lymph # [place] # Seg Neutrophils % Seg Neuts % (Manual) 93.0 H Lymphocytes % (Manual) 3.0 L Monocytes % (Manual) Seg Neutrophils # Seg Neutrophils # Man 12.6 H Lymphocytes # (Manual) 0.4 L Monocytes # (Manual) PT INR POC ABG pH POC ABG pCO2 POC ABG pO2 Sodium Potassium 3.2 L Chloride Carbon Dioxide BUN Creatinine 0.7 L Glucose 107 H POC Glucose 137 H Lactic Acid Calcium Phosphorus Total Bilirubin CK-MB (CK-2) Troponin T C-Reactive Protein NT-Pro-B Natriuret Pep Total Protein Albumin HDL Cholesterol Prostate Specific Ag Urine WBC (Auto) Crossmatch Chest x-ray: report reviewed, image reviewed
[2017-09-02] MEDS: ATIVAN IV PRN (02:14)
[2017-09-02] MEDS: LOPRESSOR PO SCH ×4 (06:16→18:00)
[2017-09-02] MEDS: CARDIZEM PO SCH ×3 (06:17→22:00)
[2017-09-02] MEDS: ceFAZolin 2 GM in NACL 0.9% 100 ML IV SCH ×3 (07:02→22:00)
[2017-09-02] MEDS: ATROVENT IH SCH ×3 (08:02→21:00)
--- NOTE | 2017-09-02 08:47 | Progress Note ---
Assessment and Plan 1. Chronic atrial fibrillation 2. Coronary artery disease status post PCI in the past 3. Abdominal aortic aneurysm measuring 5 cm 4. Chronic DVT 5. Chronic kidney disease 6. Essential hypertension Plan. Patient appears confused requiring restraints. Does not appear to be in any distress today, continue cardiac management Subjective Date of service: 09/02/17 Principal diagnosis: afib with RVR and CHF excacerbation Interval history: No cardiac symptoms Objective Vital Signs Temp Pulse Pulse Resp Resp Resp BP 09/02/17 08:01 09/02/17 06:17 105 H 171/69 09/02/17 06:16 105 H 171/69 09/02/17 05:26 98.7 F 105 H 18 09/02/17 02:59 09/02/17 00:53 98 H 09/02/17 00:46 98.9 F 68 20 09/01/17 22:36 90 172/79 09/01/17 20:16 98.9 F 90 18 09/01/17 20:02 112 H 22 09/01/17 19:47 110 H 22 09/01/17 16:08 99.3 F 80 22 161/87 09/01/17 14:00 89 20 09/01/17 13:50 62 20 09/01/17 13:23 81 152/67 09/01/17 12:32 98.7 F 81 22 152/67 09/01/17 10:00 118 H 18 09/01/17 09:01 98.5 F 114 H 20 BP Pulse Ox 09/02/17 08:01 96 09/02/17 06:17 09/02/17 06:16 09/02/17 05:26 171/69 98 09/02/17 02:59 98 09/02/17 00:53 09/02/17 00:46 149/82 97 09/01/17 22:36 09/01/17 20:16 172/79 99 09/01/17 20:02 09/01/17 19:47 94 09/01/17 16:08 96 09/01/17 14:00 09/01/17 13:50 09/01/17 13:23 09/01/17 12:32 84 09/01/17 10:00 100 09/01/17 09:01 156/79 92 - Physical Examination General: No Apparent Distress HEENT: Positive: PERRL Neck: Positive: neck supple, trachea midline. Negative: JVD/HJR, Masses Cardiac: Positive: Irregularly Regular, S1/S2, PMI, Laterally Displaced Lungs: Positive: clear to auscultation, No Wheeze, Rales, Rhonchi Neuro: Positive: Weakness Abdomen: Positive: Unremarkable, Soft, Active Bowel Sounds, Other (DRESSED WOUND ) Skin: Positive: Clear Extremities: Absent: edema - Imaging and Cardiology EKG: image reviewed
[2017-09-02] MEDS: XARELTO PO SCH (10:00)
[2017-09-02] MEDS: SODIUM CHLORIDE FLUSH SYRINGE 10 ML IV SCH ×2 (10:00→22:00)
[2017-09-02] MEDS: PEPCID PO SCH ×2 (10:00→22:00)
--- NOTE | 2017-09-02 11:35 | Progress Note ---
Assessment and Plan Assessment and plan: Acute hypoxemic respiratory failure Patient extubated on 08/29/17. Continue O2 to maintain sats. BiPAP as clinically indicated. Acute on chronic diastolic heart failure Echo 04/2017 at [place] - LVEF 45-50%, moderate RV dysfunction, RVSP 49 mm Hg and dilated IVC Cont diuresis per Cardiology Permanent atrial fibrillation with RVR Continue Cardizem and Xarelto. Cardiology following. Sepsis ID following. Continue IV antibiotics. Complicated UTI with urinary retention. -08/24/17 SP cath was placed -08/27/17 CT abd showed free air intraperitoneal, SP cath, high density material in the urinary bladder, prominent prostate and bilateral renal calculi. -08/27/17 taken to the OR for cysto, evacuation of clots and merida placement by due to acute retention and exlap with evacuation of large amount of blood 2 L from abdominal cavity by Surgery. No bowel perforation Vomiting. Check KUB to rule out ileus. Surgery to reevaluate. I discussed the case with the nurse. Keep NPO for now History of CAD s/p PCI to LAD (2011) low salt diet and medical management History of ascending aortic aneurysm measuring [address] 03/2016 Chronic DVT on xarelto Acute renal failure Etiology likely secondary to Sepsis/ATN Resolving. Nephrology following. Systemic Hypertension Urinary retention Urology following Non-compliance History Interval history: No new issues overnight. However, nursing reports one episode of large bilious vomiting this morning. Hospitalist Physical - Constitutional Vitals: Temp Pulse Resp BP Pulse Ox 97.9 F 74 20 150/63 100 09/02/17 08:00 09/02/17 10:00 09/02/17 09:05 09/02/17 10:00 09/02/17 10:00 General appearance: Present: no acute distress - EENT Eyes: Present: PERRL, EOM intact ENT: hearing intact, clear oral mucosa, dentition normal - Neck Neck: Present: supple, normal ROM - Respiratory Respiratory effort: normal Respiratory: bilateral: CTA - Cardiovascular Rhythm: regular Heart Sounds: Present: S1 & S2. Absent: gallop, rub - Extremities Extremities: no ischemia, No edema, Full ROM - Abdominal General gastrointestinal: soft, non-tender, non-distended, normal bowel sounds - Integumentary Integumentary: Present: clear, warm, dry - Neurologic Neurologic: CNII-XII intact, moves all extremities Results - Labs CBC & Chem 7: 09/01/17 07:02 09/01/17 07:02 Labs: Laboratory Last Values WBC 13.6 K/mm3 (4.5-11.0) H 09/01/17 07:02 RBC 3.93 M/mm3 (3.65-5.03) 09/01/17 07:02 Hgb 9.1 gm/dl (11.8-15.2) L 09/01/17 07:02 Hct 28.2 % (35.5-45.6) L 09/01/17 07:02 MCV 72 fl (84-94) L 09/01/17 07:02 MCH 23 pg (28-32) L 09/01/17 07:02 MCHC 32 % (32-34) 09/01/17 07:02 RDW 23.5 % (13.2-15.2) H 09/01/17 07:02 Plt Count 263 K/mm3 (140-440) 09/01/17 07:02 Lymph % (Auto) 6.3 % (13.4-35.0) L 08/30/17 04:00 [place] % (Auto) 7.0 % (0.0-7.3) 08/30/17 04:00 Eos % (Auto) 0.1 % (0.0-4.3) 08/30/17 04:00 Baso % (Auto) 0.1 % (0.0-1.8) 08/30/17 04:00 Lymph # 1.0 K/mm3 (1.2-5.4) L 08/30/17 04:00 [place] # 1.1 K/mm3 (0.0-0.8) H 08/30/17 04:00 Eos # 0.0 K/mm3 (0.0-0.4) 08/30/17 04:00 Baso # 0.0 K/mm3 (0.0-0.1) 08/30/17 04:00 Add Manual Diff Complete 09/01/17 07:02 Total Counted 100 09/01/17 07:02 Seg Neutrophils % 86.5 % (40.0-70.0) H 08/30/17 04:00 Seg Neuts % (Manual) 93.0 % (40.0-70.0) H 09/01/17 07:02 Band Neutrophils % 0 % 09/01/17 07:02 Lymphocytes % (Manual) 3.0 % (13.4-35.0) L 09/01/17 07:02 Reactive Lymphs % (Man) 0 % 09/01/17 07:02 Monocytes % (Manual) 2.0 % (0.0-7.3) 09/01/17 07:02 Eosinophils % (Manual) 2.0 % (0.0-4.3) 09/01/17 07:02 Basophils % (Manual) 0 % (0.0-1.8) 09/01/17 07:02 Metamyelocytes % 0 % 09/01/17 07:02 Myelocytes % 0 % 09/01/17 07:02 Promyelocytes % 0 % 09/01/17 07:02 Blast Cells % 0 % 09/01/17 07:02 Nucleated RBC % Not Reportable 09/01/17 07:02 Seg Neutrophils # 13.0 K/mm3 (1.8-7.7) H 08/30/17 04:00 Seg Neutrophils # Man 12.6 K/mm3 (1.8-7.7) H 09/01/17 07:02 Band Neutrophils # 0.0 K/mm3 09/01/17 07:02 Lymphocytes # (Manual) 0.4 K/mm3 (1.2-5.4) L 09/01/17 07:02 Abs React Lymphs (Man) 0.0 K/mm3 09/01/17 07:02 Monocytes # (Manual) 0.3 K/mm3 (0.0-0.8) 09/01/17 07:02 Eosinophils # (Manual) 0.3 K/mm3 (0.0-0.4) 09/01/17 07:02 Basophils # (Manual) 0.0 K/mm3 (0.0-0.1) 09/01/17 07:02 Metamyelocytes # 0.0 K/mm3 09/01/17 07:02 Myelocytes # 0.0 K/mm3 09/01/17 07:02 Promyelocytes # 0.0 K/mm3 09/01/17 07:02 Blast Cells # 0.0 K/mm3 09/01/17 07:02 WBC Morphology Not Reportable 09/01/17 07:02 Hypersegmented Neuts Not Reportable 09/01/17 07:02 Hyposegmented Neuts Not Reportable 09/01/17 07:02 Hypogranular Neuts Not Reportable 09/01/17 07:02 Smudge Cells Not Reportable 09/01/17 07:02 Toxic Granulation Not Reportable 09/01/17 07:02 Toxic Vacuolation Not Reportable 09/01/17 07:02 Dohle Bodies Not Reportable 09/01/17 07:02 Pelger-Huet Anomaly Not Reportable 09/01/17 07:02 Cande Rods Not Reportable 09/01/17 07:02 Platelet Estimate Cons 09/01/17 07:02 Clumped Platelets Not Reportable 09/01/17 07:02 Plt Clumps, EDTA Not Reportable 09/01/17 07:02 Large Platelets Not Reportable 09/01/17 07:02 Giant Platelets Not Reportable 09/01/17 07:02 Platelet Satelliting Not Reportable 09/01/17 07:02 Plt Morphology Comment Not Reportable 09/01/17 07:02 RBC Morphology Not Reportable 09/01/17 07:02 Dimorphic RBCs Not Reportable 09/01/17 07:02 Polychromasia Not Reportable 09/01/17 07:02 Hypochromasia 2+ 09/01/17 07:02 Poikilocytosis 2+ 09/01/17 07:02 Anisocytosis 2+ 09/01/17 07:02 Microcytosis Not Reportable 09/01/17 07:02 Macrocytosis Not Reportable 09/01/17 07:02 Spherocytes Not Reportable 09/01/17 07:02 Pappenheimer Bodies Not Reportable 09/01/17 07:02 Sickle Cells Not Reportable 09/01/17 07:02 Target Cells Few 09/01/17 07:02 Tear Drop Cells Not Reportable 09/01/17 07:02 Ovalocytes Not Reportable 09/01/17 07:02 Helmet Cells Not Reportable 09/01/17 07:02 [place] Bodies Not Reportable 09/01/17 07:02 [place] Rings Not Reportable 09/01/17 07:02 [place] Cells 1+ 09/01/17 07:02 Bite Cells Not Reportable 09/01/17 07:02 Crenated Cell Not Reportable 09/01/17 07:02 Elliptocytes Not Reportable 09/01/17 07:02 Acanthocytes (Spur) 1+ 09/01/17 07:02 Rouleaux Not Reportable 09/01/17 07:02 Hemoglobin C Crystals Not Reportable 09/01/17 07:02 Schistocytes Few 09/01/17 07:02 Malaria parasites Not Reportable 09/01/17 07:02 Jonny Bodies Not Reportable 09/01/17 07:02 Hem Pathologist Commnt No 09/01/17 07:02 PT 22.5 Sec. (12.2-14.9) H 08/28/17 12:10 INR 1.85 (0.87-1.13) H 08/28/17 12:10 APTT 32.3 Sec. (24.2-36.6) 08/28/17 12:10 POC ABG pH 7.435 (7.35-7.45) 08/29/17 10:58 POC ABG pCO2 34.8 (35-45) L 08/29/17 10:58 POC ABG pO2 93 (80-105) 08/29/17 10:58 POC ABG HCO3 23.4 08/29/17 10:58 POC ABG Total CO2 24 08/29/17 10:58 POC ABG O2 Sat 98 08/29/17 10:58 POC ABG Base Excess -1 08/29/17 10:58 FiO2 28 % 08/29/17 10:58 Sodium 143 mmol/L (137-145) 09/01/17 07:02 Potassium 3.2 mmol/L (3.6-5.0) L 09/01/17 07:02 Chloride 106.4 mmol/L (98-107) 09/01/17 07:02 Carbon Dioxide 25 mmol/L (22-30) 09/01/17 07:02 Anion Gap 15 mmol/L 09/01/17 07:02 BUN 16 mg/dL (9-20) 09/01/17 07:02 Creatinine 0.7 mg/dL (0.8-1.5) L 09/01/17 07:02 Estimated GFR > 60 ml/min 09/01/17 07:02 BUN/Creatinine Ratio 23 % 09/01/17 07:02 Glucose 107 mg/dL (75-100) H 09/01/17 07:02 POC Glucose 137 (70-105) H 08/31/17 12:24 Lactic Acid 1.80 mmol/L (0.7-2.0) 08/28/17 Unknown Calcium 8.8 mg/dL (8.4-10.2) 09/01/17 07:02 Phosphorus 2.10 mg/dL (2.5-4.5) L 08/30/17 04:00 Magnesium 2.30 mg/dL (1.7-2.3) 08/30/17 04:00 Total Bilirubin 1.40 mg/dL (0.1-1.2) H 08/28/17 12:10 AST 32 units/L (5-40) 08/28/17 12:10 ALT 16 units/L (7-56) 08/28/17 12:10 Alkaline Phosphatase 42 units/L (35-129) 08/28/17 12:10 Total Creatine Kinase 155 units/L (55-170) 08/23/17 10:56 CK-MB (CK-2) 4.4 ng/mL (0.0-4.0) H 08/23/17 10:56 CK-MB (CK-2) Rel Index 2.8 (0-4) 08/23/17 10:56 Troponin T 0.077 ng/mL (0.00-0.029) H D 08/23/17 10:56 C-Reactive Protein 38.40 mg/dL (0.00-1.30) H 08/29/17 20:45 NT-Pro-B Natriuret Pep 05407 pg/mL (0-900) H 08/23/17 02:54 Total Protein 5.3 g/dL (6.3-8.2) L 08/28/17 12:10 Albumin 2.1 g/dL (3.9-5) L 08/28/17 12:10 Albumin/Globulin Ratio 0.7 % 08/28/17 12:10 Triglycerides 69 mg/dL (2-149) 08/23/17 02:54 Cholesterol 125 mg/dL (50-199) 08/23/17 02:54 LDL Cholesterol Direct 77 mg/dL (50-130) 08/23/17 02:54 HDL Cholesterol 36 mg/dL (40-59) L 08/23/17 02:54 Cholesterol/HDL Ratio 3.47 % 08/23/17 02:54 Prostate Specific Ag 96.82 ng/mL (0.00-4.00) H 08/30/17 18:11 Urine Color Yellow (Yellow) 08/28/17 21:00 Urine Turbidity Clear (Clear) 08/28/17 21:00 Urine pH 5.0 (5.0-7.0) 08/28/17 21:00 Ur Specific Elaine 1.005 (1.003-1.030) 08/28/17 21:00 Urine Protein <15 mg/dl mg/dL (Negative) 08/28/17 21:00 Urine Glucose (UA) Neg mg/dL (Negative) 08/28/17 21:00 Urine Ketones Neg mg/dL (Negative) 08/28/17 21:00 Urine Blood Lg (Negative) 08/28/17 21:00 Urine Nitrite Neg (Negative) 08/28/17 21:00 Urine Bilirubin Neg (Negative) 08/28/17 21:00 Urine Urobilinogen < 2.0 mg/dL (<2.0) 08/28/17 21:00 Ur Leukocyte Esterase Lg (Negative) 08/28/17 21:00 Urine WBC (Auto) 43.0 /HPF (0.0-6.0) H 08/28/17 21:00 Urine RBC (Auto) > 182.0 /HPF (0.0-6.0) 08/28/17 21:00 U Epithel Cells (Auto) < 1.0 /HPF (0-13.0) 08/28/17 21:00 Uric Acid Crystals 2+ 08/28/17 21:00 Urine Mucus Few /HPF 08/28/17 21:00 Blood Type B POSITIVE 08/27/17 20:03 Antibody Screen Negative 08/27/17 20:03 Crossmatch See Detail 08/27/17 20:03
--- NOTE | 2017-09-02 11:48 | XRay Report ---
FINAL REPORT EXAM: XR ABDOMEN 1V AP HISTORY: n/V r/o ileus TECHNIQUE: 2 views of the abdomen. 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 FINDINGS: Significant distension of the stomach noted. Mild to moderate distention of a few small bowel loops. Mild to moderate stool is present within the nondistended colon. There are no suspicious calcifications overlying the renal shadows. Degenerative changes are present in the spine and hips. Catheter in the right lower quadrant nonspecific. IVC filter IMPRESSION: Nonspecific bowel gas pattern. Differential diagnosis includes gastric outlet obstruction, gastroparesis, small-bowel moderate-grade incomplete obstruction, ileus, and gastroenteritis. Overall worse compared to prior. Re-evaluation with a CT abdomen pelvis may be helpful if clinically indicated. Tushar level II non-urgent reporting initiated.
--- NOTE | 2017-09-02 11:51 | Progress Note ---
Assessment and Plan Assessment and Plan Imp: 1. Urinary obstruction/retention -> r/o UTI 2. SIRS -> MSSA sepsis, probably urinary source 3. Acute respiratory failure, hypoxia 4. JULIÁN 5. Shock/hypotension, volume depletion + sepsis 6. Afib w/ RVR 7. Vomiting and abdominal distention. Rec: 1. Stop IVFs; replete K 2. ST following 3. Afib w/ RVR per cardiology -> PO regimen started 4. ABX per ID 5. Surgery f/u needed re: JIM drain removal 6. SCDs; anticoagulation per cardiology 7. PT evaluation/OOB 8. Recommend reconsulting psych to determine the appropriate bipolar regimen 9. Check abdominal x-rays. Consider NG tube Subjective Date of service: 09/02/17 Principal diagnosis: afib with RVR and CHF excacerbation Interval history: The patient vomited large quantity of bilious material this morning. Little bit short of breath following the episode of vomiting. No acute distress. Objective Vital Signs - 12hr 09/02/17 09/02/17 09/02/17 00:46 00:53 02:59 Temperature 98.9 F Pulse Rate 68 98 H Respiratory 20 Rate Blood Pressure Blood Pressure 149/82 [Right] O2 Sat by Pulse 97 98 Oximetry 09/02/17 09/02/17 09/02/17 05:26 06:16 06:17 Temperature 98.7 F Pulse Rate 105 H 105 H 105 H Respiratory 18 Rate Blood Pressure 171/69 171/69 Blood Pressure 171/69 [Right] O2 Sat by Pulse 98 Oximetry 09/02/17 09/02/17 09/02/17 08:00 08:01 09:05 Temperature 97.9 F Pulse Rate 73 Respiratory 20 Rate Blood Pressure 165/94 Blood Pressure [Right] O2 Sat by Pulse 96 98 Oximetry 09/02/17 10:00 Temperature Pulse Rate 74 Respiratory Rate Blood Pressure Blood Pressure 150/63 [Right] O2 Sat by Pulse 100 Oximetry Constitutional: no acute distress, alert Eyes: non-icteric Neck: supple Effort: mildly labored Ascultation: Bilateral: clear (anteriorly), other (coarse BS bilaterally) Cardiovascular: irregular rhythm (no mrg), other (tachycardia noted) Gastrointestinal: normoactive bowel sounds, soft, non-tender, other (distended) Extremities: no cyanosis, no edema, pink and warm Neurologic: normal mental status, non-focal exam, pupils equal and round Psychiatric: mood appropriate, affect normal CBC and BMP: 09/01/17 07:02 09/01/17 07:02 ABG, PT/INR, D-dimer: ABG POC ABG pH 7.435 (7.35-7.45) 08/29/17 10:58 POC ABG pCO2 34.8 (35-45) L 08/29/17 10:58 POC ABG pO2 93 (80-105) 08/29/17 10:58 POC ABG HCO3 23.4 08/29/17 10:58 POC ABG Total CO2 24 08/29/17 10:58 POC ABG O2 Sat 98 08/29/17 10:58 PT/INR, D-dimer PT 22.5 Sec. (12.2-14.9) H 08/28/17 12:10 INR 1.85 (0.87-1.13) H 08/28/17 12:10 Abnormal lab findings: Abnormal Labs 08/23/17 08/23/17 08/23/17 02:54 02:54 02:54 WBC Hgb 10.7 L Hct 33.8 L MCV 71 L MCH 23 L MCHC RDW 22.8 H Lymph % (Auto) [place] % (Auto) 12.4 H Lymph # [place] # Seg Neutrophils % Seg Neuts % (Manual) Lymphocytes % (Manual) Monocytes % (Manual) Seg Neutrophils # Seg Neutrophils # Man Lymphocytes # (Manual) Monocytes # (Manual) PT INR POC ABG pH POC ABG pCO2 POC ABG pO2 Sodium Potassium Chloride Carbon Dioxide BUN 28 H Creatinine Glucose POC Glucose Lactic Acid Calcium Phosphorus Total Bilirubin CK-MB (CK-2) Troponin T 0.077 H C-Reactive Protein NT-Pro-B Natriuret Pep 50329 H Total Protein Albumin HDL Cholesterol 36 L Prostate Specific Ag Urine WBC (Auto) Crossmatch 08/23/17 08/23/17 08/23/17 05:03 05:13 10:56 WBC Hgb Hct MCV MCH MCHC RDW Lymph % (Auto) [place] % (Auto) Lymph # [place] # Seg Neutrophils % Seg Neuts % (Manual) Lymphocytes % (Manual) Monocytes % (Manual) Seg Neutrophils # Seg Neutrophils # Man Lymphocytes # (Manual) Monocytes # (Manual) PT 15.5 H INR 1.17 H POC ABG pH POC ABG pCO2 POC ABG pO2 Sodium Potassium Chloride Carbon Dioxide BUN Creatinine Glucose POC Glucose Lactic Acid Calcium Phosphorus Total Bilirubin CK-MB (CK-2) 4.4 H 4.4 H Troponin T 0.062 H 0.077 H D C-Reactive Protein NT-Pro-B Natriuret Pep Total Protein Albumin HDL Cholesterol Prostate Specific Ag Urine WBC (Auto) Crossmatch 08/23/17 08/24/17 08/24/17 20:28 04:00 04:00 WBC Hgb 11.1 L Hct 34.4 L MCV 71 L MCH 23 L MCHC RDW 22.5 H Lymph % (Auto) 5.6 L [place] % (Auto) 9.4 H Lymph # 0.6 L [place] # 1.0 H Seg Neutrophils % 84.8 H Seg Neuts % (Manual) Lymphocytes % (Manual) Monocytes % (Manual) Seg Neutrophils # 9.2 H Seg Neutrophils # Man Lymphocytes # (Manual) Monocytes # (Manual) PT INR POC ABG pH POC ABG pCO2 POC ABG pO2 52 L Sodium 146 H D Potassium Chloride Carbon Dioxide BUN 35 H Creatinine 1.8 H Glucose POC Glucose Lactic Acid Calcium Phosphorus Total Bilirubin CK-MB (CK-2) Troponin T C-Reactive Protein NT-Pro-B Natriuret Pep Total Protein Albumin HDL Cholesterol Prostate Specific Ag Urine WBC (Auto) Crossmatch 08/25/17 08/25/17 08/26/17 Unknown Unknown 04:20 WBC Hgb 10.7 L 10.2 L Hct 33.5 L 31.7 L MCV 70 L 70 L MCH 23 L 23 L MCHC RDW 22.5 H 22.2 H Lymph % (Auto) [place] % (Auto) Lymph # [place] # Seg Neutrophils % Seg Neuts % (Manual) Lymphocytes % (Manual) Monocytes % (Manual) Seg Neutrophils # Seg Neutrophils # Man Lymphocytes # (Manual) Monocytes # (Manual) PT INR POC ABG pH POC ABG pCO2 POC ABG pO2 Sodium Potassium Chloride Carbon Dioxide 31 H BUN 37 H Creatinine 1.6 H Glucose POC Glucose Lactic Acid Calcium Phosphorus Total Bilirubin CK-MB (CK-2) Troponin T C-Reactive Protein NT-Pro-B Natriuret Pep Total Protein Albumin HDL Cholesterol Prostate Specific Ag Urine WBC (Auto) Crossmatch 08/26/17 08/27/17 08/27/17 04:20 03:29 06:50 WBC Hgb 9.7 L Hct 30.7 L MCV 71 L MCH 23 L MCHC RDW 21.3 H Lymph % (Auto) [place] % (Auto) Lymph # [place] # Seg Neutrophils % Seg Neuts % (Manual) Lymphocytes % (Manual) Monocytes % (Manual) Seg Neutrophils # Seg Neutrophils # Man Lymphocytes # (Manual) Monocytes # (Manual) PT INR POC ABG pH POC ABG pCO2 POC ABG pO2 Sodium Potassium Chloride 95.6 L Carbon Dioxide 36 H BUN 30 H Creatinine Glucose 112 H POC Glucose 146 H Lactic Acid Calcium Phosphorus Total Bilirubin CK-MB (CK-2) Troponin T C-Reactive Protein NT-Pro-B Natriuret Pep Total Protein Albumin HDL Cholesterol Prostate Specific Ag Urine WBC (Auto) Crossmatch 08/27/17 08/27/17 08/27/17 06:50 09:12 15:40 WBC Hgb Hct MCV MCH MCHC RDW Lymph % (Auto) [place] % (Auto) Lymph # [place] # Seg Neutrophils % Seg Neuts % (Manual) Lymphocytes % (Manual) Monocytes % (Manual) Seg Neutrophils # Seg Neutrophils # Man Lymphocytes # (Manual) Monocytes # (Manual) PT 22.6 H INR 1.86 H POC ABG pH POC ABG pCO2 POC ABG pO2 Sodium Potassium Chloride 96.9 L Carbon Dioxide BUN 32 H Creatinine 1.9 H D Glucose 115 H POC Glucose 115 H Lactic Acid Calcium Phosphorus Total Bilirubin CK-MB (CK-2) Troponin T C-Reactive Protein NT-Pro-B Natriuret Pep Total Protein Albumin HDL Cholesterol Prostate Specific Ag Urine WBC (Auto) Crossmatch 08/27/17 08/28/17 08/28/17 20:03 01:04 02:40 WBC Hgb Hct MCV MCH MCHC RDW Lymph % (Auto) [place] % (Auto) Lymph # [place] # Seg Neutrophils % Seg Neuts % (Manual) Lymphocytes % (Manual) Monocytes % (Manual) Seg Neutrophils # Seg Neutrophils # Man Lymphocytes # (Manual) Monocytes # (Manual) PT INR POC ABG pH 7.328 L POC ABG pCO2 POC ABG pO2 Sodium 135 L Potassium Chloride 97.6 L Carbon Dioxide BUN 37 H Creatinine 2.5 H Glucose 127 H POC Glucose Lactic Acid Calcium 7.5 L Phosphorus Total Bilirubin CK-MB (CK-2) Troponin T C-Reactive Protein NT-Pro-B Natriuret Pep Total Protein Albumin HDL Cholesterol Prostate Specific Ag Urine WBC (Auto) Crossmatch See Detail 08/28/17 08/28/17 08/28/17 02:40 04:16 12:10 WBC 12.4 H 15.6 H Hgb 10.8 L 9.9 L Hct 34.5 L 31.2 L MCV 74 L 74 L MCH 23 L 23 L MCHC 31 L RDW 23.6 H 23.2 H Lymph % (Auto) 4.0 L [place] % (Auto) 8.8 H Lymph # 0.5 L [place] # 1.1 H Seg Neutrophils % 87.0 H Seg Neuts % (Manual) 89.0 H Lymphocytes % (Manual) 3.0 L Monocytes % (Manual) 8.0 H Seg Neutrophils # 10.8 H Seg Neutrophils # Man 13.9 H Lymphocytes # (Manual) 0.5 L Monocytes # (Manual) 1.2 H PT INR POC ABG pH POC ABG pCO2 POC ABG pO2 110 H Sodium Potassium Chloride Carbon Dioxide BUN Creatinine Glucose POC Glucose Lactic Acid Calcium Phosphorus Total Bilirubin CK-MB (CK-2) Troponin T C-Reactive Protein NT-Pro-B Natriuret Pep Total Protein Albumin HDL Cholesterol Prostate Specific Ag Urine WBC (Auto) Crossmatch 08/28/17 08/28/17 08/28/17 12:10 12:10 15:30 WBC Hgb Hct MCV MCH MCHC RDW Lymph % (Auto) [place] % (Auto) Lymph # [place] # Seg Neutrophils % Seg Neuts % (Manual) Lymphocytes % (Manual) Monocytes % (Manual) Seg Neutrophils # Seg Neutrophils # Man Lymphocytes # (Manual) Monocytes # (Manual) PT 22.5 H INR 1.85 H POC ABG pH POC ABG pCO2 POC ABG pO2 Sodium Potassium Chloride Carbon Dioxide BUN 40 H Creatinine 2.4 H Glucose 118 H POC Glucose Lactic Acid 2.90 H* Calcium 7.3 L Phosphorus Total Bilirubin 1.40 H CK-MB (CK-2) Troponin T C-Reactive Protein NT-Pro-B Natriuret Pep Total Protein 5.3 L Albumin 2.1 L HDL Cholesterol Prostate Specific Ag Urine WBC (Auto) Crossmatch 08/28/17 08/28/17 08/29/17 19:15 21:00 03:30 WBC 18.9 H Hgb 9.5 L Hct 29.8 L MCV 73 L MCH 23 L MCHC RDW 23.0 H Lymph % (Auto) 4.7 L [place] % (Auto) 9.2 H Lymph # 0.9 L [place] # 1.7 H Seg Neutrophils % 85.9 H Seg Neuts % (Manual) Lymphocytes % (Manual) Monocytes % (Manual) Seg Neutrophils # 16.2 H Seg Neutrophils # Man Lymphocytes # (Manual) Monocytes # (Manual) PT INR POC ABG pH POC ABG pCO2 POC ABG pO2 Sodium Potassium Chloride Carbon Dioxide BUN Creatinine Glucose POC Glucose 125 H Lactic Acid Calcium Phosphorus Total Bilirubin CK-MB (CK-2) Troponin T C-Reactive Protein NT-Pro-B Natriuret Pep Total Protein Albumin HDL Cholesterol Prostate Specific Ag Urine WBC (Auto) 43.0 H Crossmatch 08/29/17 08/29/17 08/29/17 03:30 04:10 10:58 WBC Hgb Hct MCV MCH MCHC RDW Lymph % (Auto) [place] % (Auto) Lymph # [place] # Seg Neutrophils % Seg Neuts % (Manual) Lymphocytes % (Manual) Monocytes % (Manual) Seg Neutrophils # Seg Neutrophils # Man Lymphocytes # (Manual) Monocytes # (Manual) PT INR POC ABG pH POC ABG pCO2 34.8 L POC ABG pO2 130 H Sodium Potassium Chloride Carbon Dioxide BUN 46 H Creatinine 1.7 H Glucose 121 H POC Glucose Lactic Acid Calcium 7.6 L Phosphorus Total Bilirubin CK-MB (CK-2) Troponin T C-Reactive Protein NT-Pro-B Natriuret Pep Total Protein Albumin HDL Cholesterol Prostate Specific Ag Urine WBC (Auto) Crossmatch 08/29/17 08/29/17 08/29/17 17:22 20:45 23:41 WBC Hgb Hct MCV MCH MCHC RDW Lymph % (Auto) [place] % (Auto) Lymph # [place] # Seg Neutrophils % Seg Neuts % (Manual) Lymphocytes % (Manual) Monocytes % (Manual) Seg Neutrophils # Seg Neutrophils # Man Lymphocytes # (Manual) Monocytes # (Manual) PT INR POC ABG pH POC ABG pCO2 POC ABG pO2 Sodium Potassium Chloride Carbon Dioxide BUN Creatinine Glucose POC Glucose 119 H 113 H Lactic Acid Calcium Phosphorus Total Bilirubin CK-MB (CK-2) Troponin T C-Reactive Protein 38.40 H NT-Pro-B Natriuret Pep Total Protein Albumin HDL Cholesterol Prostate Specific Ag Urine WBC (Auto) Crossmatch 08/30/17 08/30/1718 04:00 04:00 04:00 WBC 15.1 H Hgb 9.2 L Hct 28.9 L MCV 74 L MCH 23 L MCHC RDW 23.5 H Lymph % (Auto) 6.3 L [place] % (Auto) Lymph # 1.0 L [place] # 1.1 H Seg Neutrophils % 86.5 H Seg Neuts % (Manual) Lymphocytes % (Manual) Monocytes % (Manual) Seg Neutrophils # 13.0 H Seg Neutrophils # Man Lymphocytes # (Manual) Monocytes # (Manual) PT INR POC ABG pH POC ABG pCO2 POC ABG pO2 Sodium Potassium Chloride 108.0 H Carbon Dioxide BUN 37 H Creatinine Glucose 112 H POC Glucose Lactic Acid Calcium 8.0 L Phosphorus 2.10 L Total Bilirubin CK-MB (CK-2) Troponin T C-Reactive Protein NT-Pro-B Natriuret Pep Total Protein Albumin HDL Cholesterol Prostate Specific Ag Urine WBC (Auto) Crossmatch 08/30/17 08/30/17 08/30/17 05:34 12:00 17:14 WBC Hgb Hct MCV MCH MCHC RDW Lymph % (Auto) [place] % (Auto) Lymph # [place] # Seg Neutrophils % Seg Neuts % (Manual) Lymphocytes % (Manual) Monocytes % (Manual) Seg Neutrophils # Seg Neutrophils # Man Lymphocytes # (Manual) Monocytes # (Manual) PT INR POC ABG pH POC ABG pCO2 POC ABG pO2 Sodium Potassium Chloride Carbon Dioxide BUN Creatinine Glucose POC Glucose 116 H 109 H 110 H Lactic Acid Calcium Phosphorus Total Bilirubin CK-MB (CK-2) Troponin T C-Reactive Protein NT-Pro-B Natriuret Pep Total Protein Albumin HDL Cholesterol Prostate Specific Ag Urine WBC (Auto) Crossmatch 08/30/17 08/30/17 08/31/17 18:11 23:17 04:30 WBC 12.8 H Hgb 8.5 L Hct 26.7 L MCV 73 L MCH 23 L MCHC RDW 23.2 H Lymph % (Auto) [place] % (Auto) Lymph # [place] # Seg Neutrophils % Seg Neuts % (Manual) 97.0 H Lymphocytes % (Manual) 1.0 L Monocytes % (Manual) Seg Neutrophils # Seg Neutrophils # Man 12.4 H Lymphocytes # (Manual) 0.1 L Monocytes # (Manual) PT INR POC ABG pH POC ABG pCO2 POC ABG pO2 Sodium Potassium Chloride Carbon Dioxide BUN Creatinine Glucose POC Glucose 126 H Lactic Acid Calcium Phosphorus Total Bilirubin CK-MB (CK-2) Troponin T C-Reactive Protein NT-Pro-B Natriuret Pep Total Protein Albumin HDL Cholesterol Prostate Specific Ag 96.82 H Urine WBC (Auto) Crossmatch 08/31/17 09/01/17 09/01/17 12:24 07:02 07:02 WBC 13.6 H Hgb 9.1 L Hct 28.2 L MCV 72 L MCH 23 L MCHC RDW 23.5 H Lymph % (Auto) [place] % (Auto) Lymph # [place] # Seg Neutrophils % Seg Neuts % (Manual) 93.0 H Lymphocytes % (Manual) 3.0 L Monocytes % (Manual) Seg Neutrophils # Seg Neutrophils # Man 12.6 H Lymphocytes # (Manual) 0.4 L Monocytes # (Manual) PT INR POC ABG pH POC ABG pCO2 POC ABG pO2 Sodium Potassium 3.2 L Chloride Carbon Dioxide BUN Creatinine 0.7 L Glucose 107 H POC Glucose 137 H Lactic Acid Calcium Phosphorus Total Bilirubin CK-MB (CK-2) Troponin T C-Reactive Protein NT-Pro-B Natriuret Pep Total Protein Albumin HDL Cholesterol Prostate Specific Ag Urine WBC (Auto) Crossmatch
--- NOTE | 2017-09-02 13:30 | Progress Note ---
Assessment and Plan Assessment: 1) Sepsis with transient septic shock: still mild leukocytosis. Etiology most likely UTI. -blood cx neg 2) Complicated UTI: with urinary retention -08/24/17 SP cath was placed -08/27/17 CT abd showed free air intraperitoneal, SP cath, high density material in the urinary bladder, prominent prostate and bilateral renal calculi. -08/27/17 taken to the OR for cysto, evacuation of clots and merida placement by due to acute retention and exlap with evacuation of large amount of blood 2 L from abdominal cavity by Surgery. No bowel perf found. -08/28/17 UA showed 43 wbc, large LE. 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 Plan: -continue cefazolin D5/10 -monitor leukocytosis I am rounding on 09/04 Thanks Kelly Pérez MD Infectious Diseases Specialist [facility] ([facility] M [phone] O [phone] Subjective Date of service: 09/02/17 Principal diagnosis: afib with RVR and CHF excacerbation Interval history: feels better no fever Microbiology: Blood cultures: 08/28 neg Urine cultures: 08/28 MSSA Respiratory cultures: 08/28 MSSA Current Antimicrobials: cefazolin 09/01 Prior Antimicrobials: cefepime vanco prn fluconazole Objective - Exam Narrative Exam: General appearance: Alert in NAD, conversant Eyes: anicteric sclerae, moist conjunctivae; no lid-lag; PERRLA HENT: Atraumatic; oropharynx clear Neck: Trachea midline; supple, no thyromegaly or lymphadenopathy Lungs: CTA, with normal respiratory effort and no intercostal retractions CV: rrr Abdomen: Soft, surg wound with dressings, drain with blood ? merida w hematuria Extremities: No peripheral edema or extremity lymphadenopathy Skin: Normal temperature, turgor and texture; no rash, ulcers or subcutaneous nodules Psych: Appropriate affect, alert and oriented to person, place and time. Neuro: alert and oriented x 3. Moving all extermities Lines: right SC TLC - Constitutional Vitals: Vital Signs Temp Pulse Resp BP Pulse Ox 97.9 F 74 20 150/63 100 07/14/18 08:00 09/02/17 10:00 09/02/17 09:05 09/02/17 10:00 09/02/17 10:00 Temperature -Last 24 Hours Temperature 97.9 F Temperature 98.7 F Temperature 98.9 F Temperature 98.9 F Temperature 99.3 F - Labs CBC & Chem 7: 09/01/17 07:02 09/01/17 07:02
--- NOTE | 2017-09-02 14:20 | Progress Note ---
Subjective - Reason for Consult Consult date: 09/02/17 Reason for consult: follow up for 2nd consult placed - Chief Complaint Chief complaint: sleeping 72-year-old AAM with a history of bipolar disorder, hypertension, bph, obesity, CHF, chronic atrial fibrillation, medical noncompliance, prior deep vein thrombosis, suspected CHRIS, chronic kidney disease 3, mild descending aortic aneurysm, measured at a stable 4.7 cm over several years, and single-vessel coronary artery disease with a patent LAD stent on a repeat cardiac catheterization 3 years ago, per the medical record. A second consult was placed 08/30/2017 for psychiatry to evaluate. Unable to assess today. He was sleeping. Attempts to wake him were unsuccessful. Mental Status Exam - Vital signs Last Vital Signs Temp 98.7 F 09/02/17 12:00 Pulse 86 09/02/17 13:43 Resp 18 09/02/17 13:43 BP 138/80 09/02/17 12:00 Pulse Ox 93 09/02/17 12:00 - Exam Narrative exam: unable to assess Assessment and Plan Impression: bipolar disorder by history Recommendation: Plan to follow up in 24 hours to gather additional information from patient.
--- NOTE | 2017-09-02 17:37 | XRay Report ---
FINAL REPORT PROCEDURE: XR ABDOMEN 1V AP TECHNIQUE: AP views of the abdomen HISTORY: gastric outlet obst COMPARISON: 09/02/2017 FINDINGS: Gastric distention is decreased compared to the prior study. Dilated small bowel loops are noted however in the upper abdomen. Nasogastric tube is in the mid stomach. IVC filter is present. Catheter overlies the right lower quadrant IMPRESSION: Decreased gastric distention compared to the prior study. However there are dilated loops of small bowel noted. Findings could be related to ileus or bowel obstruction. Consider follow-up with CT abdomen pelvis
[2017-09-02 17:40] LABS: Basophils # (Auto) 0.1 K/mm3 (0.0-0.1); Basophils % (Auto) 0.4 % (0.0-1.8); Eosinophils # (Auto) 0.2 K/mm3 (0.0-0.4); Eosinophils % (Auto) 1.5 % (0.0-4.3); Hemoglobin 8.8 gm/dl (11.8-15.2); Lymphocytes # (Auto) 1.1 K/mm3 (1.2-5.4); Lymphocytes % (Auto) 7.1 % (13.4-35.0); Mean Corpuscular HGB Conc 32 % (32-34); Mean Corpuscular Volume 72 fl (84-94); Monocytes # (Auto) 1.3 K/mm3 (0.0-0.8); Monocytes % (Auto) 8.5 % (0.0-7.3); Platelet Count 287 K/mm3 (140-440); Red Blood Count 3.92 M/mm3 (3.65-5.03)
[2017-09-02 17:41] LABS: Mean Corpuscular Hemoglobin 23 pg (28-32); Red Cell Distribution Width 23.1 % (13.2-15.2)
[2017-09-02 17:55] LABS: Alanine Aminotransferase 69 units/L (7-56); Albumin 2.3 g/dL (3.9-5); BUN/Creatinine Ratio 21; Blood Urea Nitrogen 17 mg/dL (9-20); Calcium 9.3 mg/dL (8.4-10.2); Hemolysis Index 6
--- NOTE | 2017-09-02 18:01 | Progress Note ---
Subjective Narrative: No change in clinical picture no responsive , abd distended KUB picture of Ileus , NG recovred 1800 cc ; abd drain n clear yellowish liquid , will check creatinine to R/O urine leak , needs TPN , KeepNG obtain KUB ,wii F/U . will cont same . Talked to RN , Objective Vital Signs - 12hr 09/02/17 09/02/17 09/02/17 06:16 06:17 08:00 Temperature 97.9 F Pulse Rate 105 H 105 H Pulse Rate [ Anterior Upper Lobe] Respiratory Rate Respiratory Rate [Anterior Upper Lobe] Blood Pressure 171/69 171/69 Blood Pressure [Right] O2 Sat by Pulse Oximetry 09/02/17 09/02/17 09/02/17 08:01 09:05 10:00 Temperature Pulse Rate 73 74 Pulse Rate [ Anterior Upper Lobe] Respiratory 20 Rate Respiratory Rate [Anterior Upper Lobe] Blood Pressure 165/94 Blood Pressure 150/63 [Right] O2 Sat by Pulse 96 98 100 Oximetry 09/02/17 09/02/17 09/02/17 12:00 13:38 13:43 Temperature 98.7 F Pulse Rate 88 Pulse Rate [ 88 86 Anterior Upper Lobe] Respiratory 24 Rate Respiratory 18 18 Rate [Anterior Upper Lobe] Blood Pressure Blood Pressure 138/80 [Right] O2 Sat by Pulse 93 Oximetry - Labs 09/02/17 16:30 09/02/17 17:00 Diabetes panel 09/02/17 Range/Units 17:00 Sodium 143 (137-145) mmol/L Potassium 3.4 L (3.6-5.0) mmol/L Chloride 104.3 (98-107) mmol/L Carbon Dioxide 27 (22-30) mmol/L BUN 17 (9-20) mg/dL Creatinine 0.8 (0.8-1.5) mg/dL Glucose 94 (75-100) mg/dL Calcium 9.3 (8.4-10.2) mg/dL AST 88 H (5-40) units/L ALT 69 H (7-56) units/L Alkaline Phosphatase 91 (35-129) units/L Total Protein 6.0 L (6.3-8.2) g/dL Albumin 2.3 L (3.9-5) g/dL Calcium panel 09/02/17 Range/Units 17:00 Calcium 9.3 (8.4-10.2) mg/dL Albumin 2.3 L (3.9-5) g/dL Pituitary panel 09/02/17 Range/Units 17:00 Sodium 143 (137-145) mmol/L Potassium 3.4 L (3.6-5.0) mmol/L Chloride 104.3 (98-107) mmol/L Carbon Dioxide 27 (22-30) mmol/L BUN 17 (9-20) mg/dL Creatinine 0.8 (0.8-1.5) mg/dL Glucose 94 (75-100) mg/dL Calcium 9.3 (8.4-10.2) mg/dL Adrenal panel 09/02/17 Range/Units 17:00 Sodium 143 (137-145) mmol/L Potassium 3.4 L (3.6-5.0) mmol/L Chloride 104.3 (98-107) mmol/L Carbon Dioxide 27 (22-30) mmol/L BUN 17 (9-20) mg/dL Creatinine 0.8 (0.8-1.5) mg/dL Glucose 94 (75-100) mg/dL Calcium 9.3 (8.4-10.2) mg/dL Total Bilirubin 1.30 H (0.1-1.2) mg/dL AST 88 H (5-40) units/L ALT 69 H (7-56) units/L Alkaline Phosphatase 91 (35-129) units/L Total Protein 6.0 L (6.3-8.2) g/dL Albumin 2.3 L (3.9-5) g/dL
[2017-09-02 18:20] LABS: INR 1.87 (0.87-1.13)
[2017-09-02 18:21] LABS: Partial Thromboplastin Time 37.7 Sec. (24.2-36.6)
[2017-09-03] MEDS: LOPRESSOR PO SCH ×4 (06:26→18:00)
[2017-09-03] MEDS: CARDIZEM PO SCH ×2 (06:26→14:00)
[2017-09-03] MEDS: ceFAZolin 2 GM in NACL 0.9% 100 ML IV SCH ×3 (07:01→21:04)
[2017-09-03] MEDS: ATROVENT IH SCH ×3 (07:45→20:52)
[2017-09-03 08:42] LABS: Basophils % (Auto) 0.3 % (0.0-1.8); Eosinophils # (Auto) 0.3 K/mm3 (0.0-0.4); Eosinophils % (Auto) 2.4 % (0.0-4.3); Hematocrit 27.5 % (35.5-45.6); Hemoglobin 8.7 gm/dl (11.8-15.2); Lymphocytes # (Auto) 1.1 K/mm3 (1.2-5.4); Mean Corpuscular HGB Conc 32 % (32-34); Mean Corpuscular Volume 73 fl (84-94); Monocytes # (Auto) 0.9 K/mm3 (0.0-0.8); Monocytes % (Auto) 6.9 % (0.0-7.3); Platelet Count 291 K/mm3 (140-440); Red Blood Count 3.77 M/mm3 (3.65-5.03)
[2017-09-03 08:57] LABS: BUN/Creatinine Ratio 24; Blood Urea Nitrogen 19 mg/dL (9-20); Hemolysis Index 11
[2017-09-03 08:59] LABS: Mean Corpuscular Hemoglobin 23 pg (28-32); Red Cell Distribution Width 23.1 % (13.2-15.2)
--- NOTE | 2017-09-03 09:13 | Progress Note ---
Assessment and Plan 1. Chronic atrial fibrillation 2. Coronary artery disease status post PCI in the past to the LAD 3. Abdominal aortic aneurysm measuring 5 cm 4. Chronic DVT 5. Chronic kidney disease 6. Essential hypertension 7. Acute SBO Plan. Stable cardiac maldonado continue. patient seen by surgeons Subjective Date of service: 09/03/17 Principal diagnosis: afib with RVR and CHF excacerbation Interval history: Patient still confused NG aspiration continuos to suction positive for bile Objective Vital Signs Temp Pulse Pulse Pulse Pulse Resp Resp 09/03/17 07:59 74 18 09/03/17 07:46 70 18 09/03/17 06:26 80 09/03/17 00:34 98.2 F 62 22 09/02/17 22:00 70 18 09/02/17 21:19 99.2 F 81 22 09/02/17 21:07 84 18 09/02/17 21:02 75 18 09/02/17 13:43 86 18 09/02/17 13:38 88 18 09/02/17 12:00 98.7 F 88 24 09/02/17 10:00 74 105 H BP BP Pulse Ox 09/03/17 07:59 09/03/17 07:46 100 09/03/17 06:26 118/76 09/03/17 00:34 124/74 99 09/02/17 22:00 09/02/17 21:19 132/72 97 09/02/17 21:07 09/02/17 21:02 99 09/02/17 13:43 09/02/17 13:38 09/02/17 12:00 138/80 93 09/02/17 10:00 150/63 100 - Physical Examination General: Appears Well, No Apparent Distress HEENT: Positive: PERRL Neck: Positive: neck supple, trachea midline. Negative: JVD/HJR, Masses Cardiac: Positive: Regular Rate, Irregularly Regular, S1/S2, PMI, Laterally Displaced Lungs: Positive: clear to auscultation, No Wheeze, Rales, Rhonchi Neuro: Positive: Grossly Intact, Weakness Abdomen: Positive: Unremarkable, Soft, Active Bowel Sounds, Other (DRESSED WOUND ) Skin: Positive: Clear Extremities: Absent: edema - Labs and Meds Cardiac Enzymes 09/02/17 Range/Units 17:00 AST 88 H (5-40) units/L Coagulation 09/02/17 Range/Units 17:00 PT 22.7 H (12.2-14.9) Sec. INR 1.87 H (0.87-1.13) APTT 37.7 H (24.2-36.6) Sec. CBC 09/02/17 09/03/17 Range/Units 16:30 07:31 WBC 15.1 H 13.3 H (4.5-11.0) K/mm3 RBC 3.92 3.77 (3.65-5.03) M/mm3 Hgb 8.8 L 8.7 L (11.8-15.2) gm/dl Hct 28.0 L 27.5 L (35.5-45.6) % Plt Count 287 291 (140-440) K/mm3 Lymph # 1.1 L 1.1 L (1.2-5.4) K/mm3 Baxter # 1.3 H 0.9 H (0.0-0.8) K/mm3 Eos # 0.2 0.3 (0.0-0.4) K/mm3 Baso # 0.1 0.0 (0.0-0.1) K/mm3 Comprehensive Metabolic Panel 09/02/17 09/03/17 Range/Units 17:00 07:31 Sodium 143 143 (137-145) mmol/L Potassium 3.4 L 3.2 L (3.6-5.0) mmol/L Chloride 104.3 105.6 (98-107) mmol/L Carbon Dioxide 27 25 (22-30) mmol/L BUN 17 19 (9-20) mg/dL Creatinine 0.8 0.8 (0.8-1.5) mg/dL Glucose 94 104 H (75-100) mg/dL Calcium 9.3 9.0 (8.4-10.2) mg/dL AST 88 H (5-40) units/L ALT 69 H (7-56) units/L Alkaline Phosphatase 91 (35-129) units/L Total Protein 6.0 L (6.3-8.2) g/dL Albumin 2.3 L (3.9-5) g/dL - Imaging and Cardiology EKG: image reviewed
[2017-09-03] MEDS: SODIUM CHLORIDE FLUSH SYRINGE 10 ML IV SCH ×2 (09:21→20:54)
--- NOTE | 2017-09-03 09:29 | XRay Report ---
FINAL REPORT EXAM: XR ABDOMEN 1V AP HISTORY: ileus TECHNIQUE: 2 views of the abdomen. PRIORS: Abdomen x-ray September 02, 2017. FINDINGS: Moderately distended stomach is similar to prior. [id number] distended small bowel loops are similar to prior. Large bowel loops are decompressed. There is no pneumoperitoneum. There is no air fluid level. Mild stool is present. There are no suspicious calcifications overlying the renal shadows. Pelvic phleboliths. Enteric tube is present within the stomach. Degenerative changes are present in the spine and hips. IVC filter again noted. Right pelvic catheter. IMPRESSION: Nonspecific bowel gas pattern. Slight increased gastric distension. Stable [id number] small bowel distension. Differential diagnosis includes ileus, gastroenteritis, and low-grade incomplete obstruction. Follow-up imaging with CT scan or x-rays is recommended for re-evaluation.
[2017-09-03] MEDS: ATIVAN IV PRN ×3 (09:31→20:46)
[2017-09-03] MEDS: XARELTO PO SCH (10:00)
[2017-09-03] MEDS: PEPCID PO SCH (10:00)
--- NOTE | 2017-09-03 11:30 | Progress Note ---
Assessment and Plan Assessment and Plan Imp: 1. Urinary obstruction/retention -> r/o UTI 2. SIRS -> MSSA sepsis, probably urinary source 3. Acute respiratory failure, hypoxia 4. JULIÁN 5. Shock/hypotension, volume depletion + sepsis 6. Afib w/ RVR 7. Status post exploratory Lap for intra-abdominal bleeding 8. Suspect ileus Rec: 1. Stop IVFs; replete K 2. ST following 3. Afib w/ RVR per cardiology -> PO regimen started 4. ABX per ID 5. Surgery f/u needed re: JIM drain removal 6. SCDs; anticoagulation per cardiology 7. PT evaluation/OOB 8. Recommend reconsulting psych to determine the appropriate bipolar regimen 9. New with NG suction. Monitor respiratory status closely. Subjective Date of service: 09/03/17 Principal diagnosis: afib with RVR and CHF excacerbation Interval history: Sleepy and less responsive voices no complaints. NG tube draining large quantity of bilious material No acute distress. Objective Vital Signs - 12hr 09/03/17 09/03/17 09/03/17 00:34 06:26 07:46 Temperature 98.2 F Pulse Rate 62 80 Pulse Rate [ 70 Anterior Upper Lobe] Respiratory 22 Rate Respiratory 18 Rate [Anterior Upper Lobe] Blood Pressure 124/74 118/76 O2 Sat by Pulse 99 100 Oximetry 09/03/17 07:59 Temperature Pulse Rate Pulse Rate [ 74 Anterior Upper Lobe] Respiratory Rate Respiratory 18 Rate [Anterior Upper Lobe] Blood Pressure O2 Sat by Pulse Oximetry Constitutional: no acute distress, alert Eyes: non-icteric Neck: supple Effort: mildly labored Ascultation: Bilateral: clear (anteriorly), other (coarse BS bilaterally) Cardiovascular: irregular rhythm (no mrg), other (tachycardia noted) Gastrointestinal: normoactive bowel sounds, soft, non-tender, other (NG tube present) Extremities: no cyanosis, no edema, pink and warm Neurologic: normal mental status, non-focal exam, pupils equal and round Psychiatric: mood appropriate, affect normal CBC and BMP: 09/03/17 07:31 09/03/17 07:31 ABG, PT/INR, D-dimer: ABG POC ABG pH 7.435 (7.35-7.45) 08/29/17 10:58 POC ABG pCO2 34.8 (35-45) L 08/29/17 10:58 POC ABG pO2 93 (80-105) 08/29/17 10:58 POC ABG HCO3 23.4 08/29/17 10:58 POC ABG Total CO2 24 08/29/17 10:58 POC ABG O2 Sat 98 08/29/17 10:58 PT/INR, D-dimer PT 22.7 Sec. (12.2-14.9) H 09/02/17 17:00 INR 1.87 (0.87-1.13) H 09/02/17 17:00 Abnormal lab findings: Abnormal Labs 08/23/17 08/23/17 08/23/17 02:54 02:54 02:54 WBC Hgb 10.7 L Hct 33.8 L MCV 71 L MCH 23 L MCHC RDW 22.8 H Lymph % (Auto) [place] % (Auto) 12.4 H Lymph # [place] # Seg Neutrophils % Seg Neuts % (Manual) Lymphocytes % (Manual) Monocytes % (Manual) Seg Neutrophils # Seg Neutrophils # Man Lymphocytes # (Manual) Monocytes # (Manual) PT INR APTT POC ABG pH POC ABG pCO2 POC ABG pO2 Sodium Potassium Chloride Carbon Dioxide BUN 28 H Creatinine Glucose POC Glucose Lactic Acid Calcium Phosphorus Total Bilirubin AST ALT CK-MB (CK-2) Troponin T 0.077 H C-Reactive Protein NT-Pro-B Natriuret Pep 59946 H Total Protein Albumin HDL Cholesterol 36 L Prostate Specific Ag Urine WBC (Auto) Crossmatch 08/23/17 08/23/17 08/23/17 05:03 05:13 10:56 WBC Hgb Hct MCV MCH MCHC RDW Lymph % (Auto) [place] % (Auto) Lymph # [place] # Seg Neutrophils % Seg Neuts % (Manual) Lymphocytes % (Manual) Monocytes % (Manual) Seg Neutrophils # Seg Neutrophils # Man Lymphocytes # (Manual) Monocytes # (Manual) PT 15.5 H INR 1.17 H APTT POC ABG pH POC ABG pCO2 POC ABG pO2 Sodium Potassium Chloride Carbon Dioxide BUN Creatinine Glucose POC Glucose Lactic Acid Calcium Phosphorus Total Bilirubin AST ALT CK-MB (CK-2) 4.4 H 4.4 H Troponin T 0.062 H 0.077 H D C-Reactive Protein NT-Pro-B Natriuret Pep Total Protein Albumin HDL Cholesterol Prostate Specific Ag Urine WBC (Auto) Crossmatch 08/23/17 08/24/17 08/24/17 20:28 04:00 04:00 WBC Hgb 11.1 L Hct 34.4 L MCV 71 L MCH 23 L MCHC RDW 22.5 H Lymph % (Auto) 5.6 L [place] % (Auto) 9.4 H Lymph # 0.6 L [place] # 1.0 H Seg Neutrophils % 84.8 H Seg Neuts % (Manual) Lymphocytes % (Manual) Monocytes % (Manual) Seg Neutrophils # 9.2 H Seg Neutrophils # Man Lymphocytes # (Manual) Monocytes # (Manual) PT INR APTT POC ABG pH POC ABG pCO2 POC ABG pO2 52 L Sodium 146 H D Potassium Chloride Carbon Dioxide BUN 35 H Creatinine 1.8 H Glucose POC Glucose Lactic Acid Calcium Phosphorus Total Bilirubin AST ALT CK-MB (CK-2) Troponin T C-Reactive Protein NT-Pro-B Natriuret Pep Total Protein Albumin HDL Cholesterol Prostate Specific Ag Urine WBC (Auto) Crossmatch 08/25/17 08/25/17 08/26/17 Unknown Unknown 04:20 WBC Hgb 10.7 L 10.2 L Hct 33.5 L 31.7 L MCV 70 L 70 L MCH 23 L 23 L MCHC RDW 22.5 H 22.2 H Lymph % (Auto) [place] % (Auto) Lymph # [place] # Seg Neutrophils % Seg Neuts % (Manual) Lymphocytes % (Manual) Monocytes % (Manual) Seg Neutrophils # Seg Neutrophils # Man Lymphocytes # (Manual) Monocytes # (Manual) PT INR APTT POC ABG pH POC ABG pCO2 POC ABG pO2 Sodium Potassium Chloride Carbon Dioxide 31 H BUN 37 H Creatinine 1.6 H Glucose POC Glucose Lactic Acid Calcium Phosphorus Total Bilirubin AST ALT CK-MB (CK-2) Troponin T C-Reactive Protein NT-Pro-B Natriuret Pep Total Protein Albumin HDL Cholesterol Prostate Specific Ag Urine WBC (Auto) Crossmatch 08/26/17 08/27/17 08/27/17 04:20 03:29 06:50 WBC Hgb 9.7 L Hct 30.7 L MCV 71 L MCH 23 L MCHC RDW 21.3 H Lymph % (Auto) [place] % (Auto) Lymph # [place] # Seg Neutrophils % Seg Neuts % (Manual) Lymphocytes % (Manual) Monocytes % (Manual) Seg Neutrophils # Seg Neutrophils # Man Lymphocytes # (Manual) Monocytes # (Manual) PT INR APTT POC ABG pH POC ABG pCO2 POC ABG pO2 Sodium Potassium Chloride 95.6 L Carbon Dioxide 36 H BUN 30 H Creatinine Glucose 112 H POC Glucose 146 H Lactic Acid Calcium Phosphorus Total Bilirubin AST ALT CK-MB (CK-2) Troponin T C-Reactive Protein NT-Pro-B Natriuret Pep Total Protein Albumin HDL Cholesterol Prostate Specific Ag Urine WBC (Auto) Crossmatch 08/27/17 08/27/17 08/27/17 06:50 09:12 15:40 WBC Hgb Hct MCV MCH MCHC RDW Lymph % (Auto) [place] % (Auto) Lymph # [place] # Seg Neutrophils % Seg Neuts % (Manual) Lymphocytes % (Manual) Monocytes % (Manual) Seg Neutrophils # Seg Neutrophils # Man Lymphocytes # (Manual) Monocytes # (Manual) PT 22.6 H INR 1.86 H APTT POC ABG pH POC ABG pCO2 POC ABG pO2 Sodium Potassium Chloride 96.9 L Carbon Dioxide BUN 32 H Creatinine 1.9 H D Glucose 115 H POC Glucose 115 H Lactic Acid Calcium Phosphorus Total Bilirubin AST ALT CK-MB (CK-2) Troponin T C-Reactive Protein NT-Pro-B Natriuret Pep Total Protein Albumin HDL Cholesterol Prostate Specific Ag Urine WBC (Auto) Crossmatch 08/27/17 08/28/17 08/28/17 20:03 01:04 02:40 WBC Hgb Hct MCV MCH MCHC RDW Lymph % (Auto) [place] % (Auto) Lymph # [place] # Seg Neutrophils % Seg Neuts % (Manual) Lymphocytes % (Manual) Monocytes % (Manual) Seg Neutrophils # Seg Neutrophils # Man Lymphocytes # (Manual) Monocytes # (Manual) PT INR APTT POC ABG pH 7.328 L POC ABG pCO2 POC ABG pO2 Sodium 135 L Potassium Chloride 97.6 L Carbon Dioxide BUN 37 H Creatinine 2.5 H Glucose 127 H POC Glucose Lactic Acid Calcium 7.5 L Phosphorus Total Bilirubin AST ALT CK-MB (CK-2) Troponin T C-Reactive Protein NT-Pro-B Natriuret Pep Total Protein Albumin HDL Cholesterol Prostate Specific Ag Urine WBC (Auto) Crossmatch See Detail 08/28/17 08/28/17 08/28/17 02:40 04:16 12:10 WBC 12.4 H 15.6 H Hgb 10.8 L 9.9 L Hct 34.5 L 31.2 L MCV 74 L 74 L MCH 23 L 23 L MCHC 31 L RDW 23.6 H 23.2 H Lymph % (Auto) 4.0 L [place] % (Auto) 8.8 H Lymph # 0.5 L [place] # 1.1 H Seg Neutrophils % 87.0 H Seg Neuts % (Manual) 89.0 H Lymphocytes % (Manual) 3.0 L Monocytes % (Manual) 8.0 H Seg Neutrophils # 10.8 H Seg Neutrophils # Man 13.9 H Lymphocytes # (Manual) 0.5 L Monocytes # (Manual) 1.2 H PT INR APTT POC ABG pH POC ABG pCO2 POC ABG pO2 110 H Sodium Potassium Chloride Carbon Dioxide BUN Creatinine Glucose POC Glucose Lactic Acid Calcium Phosphorus Total Bilirubin AST ALT CK-MB (CK-2) Troponin T C-Reactive Protein NT-Pro-B Natriuret Pep Total Protein Albumin HDL Cholesterol Prostate Specific Ag Urine WBC (Auto) Crossmatch 08/28/17 08/28/17 08/28/17 12:10 12:10 15:30 WBC Hgb Hct MCV MCH MCHC RDW Lymph % (Auto) [place] % (Auto) Lymph # [place] # Seg Neutrophils % Seg Neuts % (Manual) Lymphocytes % (Manual) Monocytes % (Manual) Seg Neutrophils # Seg Neutrophils # Man Lymphocytes # (Manual) Monocytes # (Manual) PT 22.5 H INR 1.85 H APTT POC ABG pH POC ABG pCO2 POC ABG pO2 Sodium Potassium Chloride Carbon Dioxide BUN 40 H Creatinine 2.4 H Glucose 118 H POC Glucose Lactic Acid 2.90 H* Calcium 7.3 L Phosphorus Total Bilirubin 1.40 H AST ALT CK-MB (CK-2) Troponin T C-Reactive Protein NT-Pro-B Natriuret Pep Total Protein 5.3 L Albumin 2.1 L HDL Cholesterol Prostate Specific Ag Urine WBC (Auto) Crossmatch 08/28/17 08/28/17 08/29/17 19:15 21:00 03:30 WBC 18.9 H Hgb 9.5 L Hct 29.8 L MCV 73 L MCH 23 L MCHC RDW 23.0 H Lymph % (Auto) 4.7 L [place] % (Auto) 9.2 H Lymph # 0.9 L [place] # 1.7 H Seg Neutrophils % 85.9 H Seg Neuts % (Manual) Lymphocytes % (Manual) Monocytes % (Manual) Seg Neutrophils # 16.2 H Seg Neutrophils # Man Lymphocytes # (Manual) Monocytes # (Manual) PT INR APTT POC ABG pH POC ABG pCO2 POC ABG pO2 Sodium Potassium Chloride Carbon Dioxide BUN Creatinine Glucose POC Glucose 125 H Lactic Acid Calcium Phosphorus Total Bilirubin AST ALT CK-MB (CK-2) Troponin T C-Reactive Protein NT-Pro-B Natriuret Pep Total Protein Albumin HDL Cholesterol Prostate Specific Ag Urine WBC (Auto) 43.0 H Crossmatch 08/29/17 08/29/17 08/29/17 03:30 04:10 10:58 WBC Hgb Hct MCV MCH MCHC RDW Lymph % (Auto) [place] % (Auto) Lymph # [place] # Seg Neutrophils % Seg Neuts % (Manual) Lymphocytes % (Manual) Monocytes % (Manual) Seg Neutrophils # Seg Neutrophils # Man Lymphocytes # (Manual) Monocytes # (Manual) PT INR APTT POC ABG pH POC ABG pCO2 34.8 L POC ABG pO2 130 H Sodium Potassium Chloride Carbon Dioxide BUN 46 H Creatinine 1.7 H Glucose 121 H POC Glucose Lactic Acid Calcium 7.6 L Phosphorus Total Bilirubin AST ALT CK-MB (CK-2) Troponin T C-Reactive Protein NT-Pro-B Natriuret Pep Total Protein Albumin HDL Cholesterol Prostate Specific Ag Urine WBC (Auto) Crossmatch 08/29/17 08/29/17 08/29/17 17:22 20:45 23:41 WBC Hgb Hct MCV MCH MCHC RDW Lymph % (Auto) [place] % (Auto) Lymph # [place] # Seg Neutrophils % Seg Neuts % (Manual) Lymphocytes % (Manual) Monocytes % (Manual) Seg Neutrophils # Seg Neutrophils # Man Lymphocytes # (Manual) Monocytes # (Manual) PT INR APTT POC ABG pH POC ABG pCO2 POC ABG pO2 Sodium Potassium Chloride Carbon Dioxide BUN Creatinine Glucose POC Glucose 119 H 113 H Lactic Acid Calcium Phosphorus Total Bilirubin AST ALT CK-MB (CK-2) Troponin T C-Reactive Protein 38.40 H NT-Pro-B Natriuret Pep Total Protein Albumin HDL Cholesterol Prostate Specific Ag Urine WBC (Auto) Crossmatch 08/30/17 08/30/17 08/30/17 04:00 04:00 04:00 WBC 15.1 H Hgb 9.2 L Hct 28.9 L MCV 74 L MCH 23 L MCHC RDW 23.5 H Lymph % (Auto) 6.3 L [place] % (Auto) Lymph # 1.0 L [place] # 1.1 H Seg Neutrophils % 86.5 H Seg Neuts % (Manual) Lymphocytes % (Manual) Monocytes % (Manual) Seg Neutrophils # 13.0 H Seg Neutrophils # Man Lymphocytes # (Manual) Monocytes # (Manual) PT INR APTT POC ABG pH POC ABG pCO2 POC ABG pO2 Sodium Potassium Chloride 108.0 H Carbon Dioxide BUN 37 H Creatinine Glucose 112 H POC Glucose Lactic Acid Calcium 8.0 L Phosphorus 2.10 L Total Bilirubin AST ALT CK-MB (CK-2) Troponin T C-Reactive Protein NT-Pro-B Natriuret Pep Total Protein Albumin HDL Cholesterol Prostate Specific Ag Urine WBC (Auto) Crossmatch 08/30/17 08/30/17 08/30/17 05:34 12:00 17:14 WBC Hgb Hct MCV MCH MCHC RDW Lymph % (Auto) [place] % (Auto) Lymph # [place] # Seg Neutrophils % Seg Neuts % (Manual) Lymphocytes % (Manual) Monocytes % (Manual) Seg Neutrophils # Seg Neutrophils # Man Lymphocytes # (Manual) Monocytes # (Manual) PT INR APTT POC ABG pH POC ABG pCO2 POC ABG pO2 Sodium Potassium Chloride Carbon Dioxide BUN Creatinine Glucose POC Glucose 116 H 109 H 110 H Lactic Acid Calcium Phosphorus Total Bilirubin AST ALT CK-MB (CK-2) Troponin T C-Reactive Protein NT-Pro-B Natriuret Pep Total Protein Albumin HDL Cholesterol Prostate Specific Ag Urine WBC (Auto) Crossmatch 08/30/17 08/30/17 08/31/17 18:11 23:17 04:30 WBC 12.8 H Hgb 8.5 L Hct 26.7 L MCV 73 L MCH 23 L MCHC RDW 23.2 H Lymph % (Auto) [place] % (Auto) Lymph # [place] # Seg Neutrophils % Seg Neuts % (Manual) 97.0 H Lymphocytes % (Manual) 1.0 L Monocytes % (Manual) Seg Neutrophils # Seg Neutrophils # Man 12.4 H Lymphocytes # (Manual) 0.1 L Monocytes # (Manual) PT INR APTT POC ABG pH POC ABG pCO2 POC ABG pO2 Sodium Potassium Chloride Carbon Dioxide BUN Creatinine Glucose POC Glucose 126 H Lactic Acid Calcium Phosphorus Total Bilirubin AST ALT CK-MB (CK-2) Troponin T C-Reactive Protein NT-Pro-B Natriuret Pep Total Protein Albumin HDL Cholesterol Prostate Specific Ag 96.82 H Urine WBC (Auto) Crossmatch 08/31/17 09/01/17 09/01/17 12:24 07:02 07:02 WBC 13.6 H Hgb 9.1 L Hct 28.2 L MCV 72 L MCH 23 L MCHC RDW 23.5 H Lymph % (Auto) [place] % (Auto) Lymph # [place] # Seg Neutrophils % Seg Neuts % (Manual) 93.0 H Lymphocytes % (Manual) 3.0 L Monocytes % (Manual) Seg Neutrophils # Seg Neutrophils # Man 12.6 H Lymphocytes # (Manual) 0.4 L Monocytes # (Manual) PT INR APTT POC ABG pH POC ABG pCO2 POC ABG pO2 Sodium Potassium 3.2 L Chloride Carbon Dioxide BUN Creatinine 0.7 L Glucose 107 H POC Glucose 137 H Lactic Acid Calcium Phosphorus Total Bilirubin AST ALT CK-MB (CK-2) Troponin T C-Reactive Protein NT-Pro-B Natriuret Pep Total Protein Albumin HDL Cholesterol Prostate Specific Ag Urine WBC (Auto) Crossmatch 09/02/17 09/02/17 09/02/17 16:30 17:00 17:00 WBC 15.1 H Hgb 8.8 L Hct 28.0 L MCV 72 L MCH 23 L MCHC RDW 23.1 H Lymph % (Auto) 7.1 L [place] % (Auto) 8.5 H Lymph # 1.1 L [place] # 1.3 H Seg Neutrophils % 82.5 H Seg Neuts % (Manual) Lymphocytes % (Manual) Monocytes % (Manual) Seg Neutrophils # 12.4 H Seg Neutrophils # Man Lymphocytes # (Manual) Monocytes # (Manual) PT 22.7 H INR 1.87 H APTT 37.7 H POC ABG pH POC ABG pCO2 POC ABG pO2 Sodium Potassium 3.4 L Chloride Carbon Dioxide BUN Creatinine Glucose POC Glucose Lactic Acid Calcium Phosphorus Total Bilirubin 1.30 H AST 88 H ALT 69 H CK-MB (CK-2) Troponin T C-Reactive Protein NT-Pro-B Natriuret Pep Total Protein 6.0 L Albumin 2.3 L HDL Cholesterol Prostate Specific Ag Urine WBC (Auto) Crossmatch 09/02/17 09/03/17 09/03/17 17:00 07:22 07:31 WBC 13.3 H Hgb 8.7 L Hct 27.5 L MCV 73 L MCH 23 L MCHC RDW 23.1 H Lymph % (Auto) 8.0 L [place] % (Auto) Lymph # 1.1 L [place] # 0.9 H Seg Neutrophils % 82.4 H Seg Neuts % (Manual) Lymphocytes % (Manual) Monocytes % (Manual) Seg Neutrophils # 11.0 H Seg Neutrophils # Man Lymphocytes # (Manual) Monocytes # (Manual) PT INR APTT POC ABG pH POC ABG pCO2 POC ABG pO2 Sodium Potassium Chloride Carbon Dioxide BUN Creatinine Glucose POC Glucose 112 H Lactic Acid Calcium Phosphorus Total Bilirubin AST ALT CK-MB (CK-2) Troponin T 0.297 H* C-Reactive Protein NT-Pro-B Natriuret Pep Total Protein Albumin HDL Cholesterol Prostate Specific Ag Urine WBC (Auto) Crossmatch 09/03/17 07:31 WBC Hgb Hct MCV MCH MCHC RDW Lymph % (Auto) [place] % (Auto) Lymph # [place] # Seg Neutrophils % Seg Neuts % (Manual) Lymphocytes % (Manual) Monocytes % (Manual) Seg Neutrophils # Seg Neutrophils # Man Lymphocytes # (Manual) Monocytes # (Manual) PT INR APTT POC ABG pH POC ABG pCO2 POC ABG pO2 Sodium Potassium 3.2 L Chloride Carbon Dioxide BUN Creatinine Glucose 104 H POC Glucose Lactic Acid Calcium Phosphorus Total Bilirubin AST ALT CK-MB (CK-2) Troponin T C-Reactive Protein NT-Pro-B Natriuret Pep Total Protein Albumin HDL Cholesterol Prostate Specific Ag Urine WBC (Auto) Crossmatch
--- NOTE | 2017-09-03 11:56 | Progress Note ---
Assessment and Plan Assessment and plan: Acute hypoxemic respiratory failure Patient extubated on 08/29/17. Continue O2 to maintain sats. BiPAP as clinically indicated. Ileus Pt. will be started on TPN. NPO. Surgery following Toxic metabolic encephalopathy Cont to treat underlying causes Acute on chronic diastolic heart failure Echo 04/2017 at [place] - LVEF 45-50%, moderate RV dysfunction, RVSP 49 mm Hg and dilated IVC Cont diuresis per Cardiology Permanent atrial fibrillation with RVR Continue Cardizem and Xarelto. Cardiology following. Sepsis ID following. Continue IV antibiotics. Complicated UTI with urinary retention. -08/24/17 SP cath was placed -08/27/17 CT abd showed free air intraperitoneal, SP cath, high density material in the urinary bladder, prominent prostate and bilateral renal calculi. -08/27/17 taken to the OR for cysto, evacuation of clots and merida placement by due to acute retention and exlap with evacuation of large amount of blood 2 L from abdominal cavity by Surgery. No bowel perforation Vomiting. Check KUB to rule out ileus. Surgery to reevaluate. I discussed the case with the nurse. Keep NPO for now History of CAD s/p PCI to LAD (2011) low salt diet and medical management History of ascending aortic aneurysm measuring [address] 03/2016 Chronic DVT on xarelto Acute renal failure Etiology likely secondary to Sepsis/ATN Resolving. Nephrology following. Systemic Hypertension Urinary retention Urology following Bipolar disorder Psych is following and will revisit when more stable Non-compliance History Interval history: I had a long d/w daughter regarding pt. care Hospitalist Physical - Constitutional Vitals: Temp Pulse Resp BP Pulse Ox 98.2 F 74 18 118/76 100 09/03/17 00:34 09/03/17 07:59 09/03/17 07:59 09/03/17 06:26 09/03/17 07:46 General appearance: Present: no acute distress - EENT Eyes: Present: PERRL, EOM intact ENT: hearing intact, clear oral mucosa, dentition normal - Neck Neck: Present: supple, normal ROM - Respiratory Respiratory effort: normal Respiratory: bilateral: diminished, rhonchi - Cardiovascular Rhythm: regular Heart Sounds: Present: S1 & S2. Absent: gallop, rub - Extremities Extremities: no ischemia, No edema, Full ROM - Abdominal General gastrointestinal: soft, non-tender, non-distended, normal bowel sounds - Integumentary Integumentary: Present: clear, warm, dry - Neurologic Neurologic: CNII-XII intact, moves all extremities Results - Labs CBC & Chem 7: 09/03/17 07:31 09/03/17 07:31 Labs: Laboratory Last Values WBC 13.3 K/mm3 (4.5-11.0) H 09/03/17 07:31 RBC 3.77 M/mm3 (3.65-5.03) 09/03/17 07:31 Hgb 8.7 gm/dl (11.8-15.2) L 09/03/17 07:31 Hct 27.5 % (35.5-45.6) L 09/03/17 07:31 MCV 73 fl (84-94) L 09/03/17 07:31 MCH 23 pg (28-32) L 09/03/17 07:31 MCHC 32 % (32-34) 09/03/17 07: RDW 23.1 % (13.2-15.2) H 09/03/17 07:31 Plt Count 291 K/mm3 (140-440) 09/03/17 07:31 Lymph % (Auto) 8.0 % (13.4-35.0) L 09/03/17 07:31 [place] % (Auto) 6.9 % (0.0-7.3) 09/03/17 07:31 Eos % (Auto) 2.4 % (0.0-4.3) 09/03/17 07:31 Baso % (Auto) 0.3 % (0.0-1.8) 09/03/17 07:31 Lymph # 1.1 K/mm3 (1.2-5.4) L 09/03/17 07:31 [place]win # 0.9 K/mm3 (0.0-0.8) H 09/03/17 07:31 Eos # 0.3 K/mm3 (0.0-0.4) 09/03/17 07:31 Baso # 0.0 K/mm3 (0.0-0.1) 09/03/17 07:31 Add Manual Diff Complete 09/01/17 07:02 Total Counted 100 09/01/17 07:02 Seg Neutrophils % 82.4 % (40.0-70.0) H 09/03/17 07:31 Seg Neuts % (Manual) 93.0 % (40.0-70.0) H 09/01/17 07:02 Band Neutrophils % 0 % 09/01/17 07:02 Lymphocytes % (Manual) 3.0 % (13.4-35.0) L 09/01/17 07:02 Reactive Lymphs % (Man) 0 % 09/01/17 07:02 Monocytes % (Manual) 2.0 % (0.0-7.3) 09/01/17 07:02 Eosinophils % (Manual) 2.0 % (0.0-4.3) 09/01/17 07:02 Basophils % (Manual) 0 % (0.0-1.8) 09/01/17 07:02 Metamyelocytes % 0 % 09/01/17 07:02 Myelocytes % 0 % 09/01/17 07:02 Promyelocytes % 0 % 09/01/17 07:02 Blast Cells % 0 % 09/01/17 07:02 Nucleated RBC % Not Reportable 09/01/17 07:02 Seg Neutrophils # 11.0 K/mm3 (1.8-7.7) H 09/03/17 07:31 Seg Neutrophils # Man 12.6 K/mm3 (1.8-7.7) H 09/01/17 07:02 Band Neutrophils # 0.0 K/mm3 09/01/17 07:02 Lymphocytes # (Manual) 0.4 K/mm3 (1.2-5.4) L 09/01/17 07:02 Abs React Lymphs (Man) 0.0 K/mm3 09/01/17 07:02 Monocytes # (Manual) 0.3 K/mm3 (0.0-0.8) 09/01/17 07:02 Eosinophils # (Manual) 0.3 K/mm3 (0.0-0.4) 09/01/17 07:02 Basophils # (Manual) 0.0 K/mm3 (0.0-0.1) 09/01/17 07:02 Metamyelocytes # 0.0 K/mm3 09/01/17 07:02 Myelocytes # 0.0 K/mm3 09/01/17 07:02 Promyelocytes # 0.0 K/mm3 09/01/17 07:02 Blast Cells # 0.0 K/mm3 09/01/17 07:02 WBC Morphology Not Reportable 09/01/17 07:02 Hypersegmented Neuts Not Reportable 09/01/17 07:02 Hyposegmented Neuts Not Reportable 09/01/17 07:02 Hypogranular Neuts Not Reportable 09/01/17 07:02 Smudge Cells Not Reportable 09/01/17 07:02 Toxic Granulation Not Reportable 09/01/17 07:02 Toxic Vacuolation Not Reportable 09/01/17 07:02 Dohle Bodies Not Reportable 09/01/17 07:02 Pelger-Huet Anomaly Not Reportable 09/01/17 07:02 Cande Rods Not Reportable 09/01/17 07:02 Platelet Estimate Cons 09/01/17 07:02 Clumped Platelets Not Reportable 09/01/17 07:02 Plt Clumps, EDTA Not Reportable 09/01/17 07:02 Large Platelets Not Reportable 09/01/17 07:02 Giant Platelets Not Reportable 09/01/17 07:02 Platelet Satelliting Not Reportable 09/01/17 07:02 Plt Morphology Comment Not Reportable 09/01/17 07:02 RBC Morphology Not Reportable 09/01/17 07:02 Dimorphic RBCs Not Reportable 09/01/17 07:02 Polychromasia Not Reportable 09/01/17 07:02 Hypochromasia 2+ 09/01/17 07:02 Poikilocytosis 2+ 09/01/17 07:02 Anisocytosis 2+ 09/01/17 07:02 Microcytosis Not Reportable 09/01/17 07:02 Macrocytosis Not Reportable 09/01/17 07:02 Spherocytes Not Reportable 09/01/17 07:02 Pappenheimer Bodies Not Reportable 09/01/17 07:02 Sickle Cells Not Reportable 09/01/17 07:02 Target Cells Few 09/01/17 07:02 Tear Drop Cells Not Reportable 09/01/17 07:02 Ovalocytes Not Reportable 09/01/17 07:02 Helmet Cells Not Reportable 09/01/17 07:02 Morrell-[place] Bodies Not Reportable 09/01/17 07:02 [place] Rings Not Reportable 09/01/17 07:02 [place] Cells 1+ 09/01/17 07:02 Bite Cells Not Reportable 09/01/17 07:02 Crenated Cell Not Reportable 09/01/17 07:02 Elliptocytes Not Reportable 09/01/17 07:02 Acanthocytes (Spur) 1+ 09/01/17 07:02 Rouleaux Not Reportable 09/01/17 07:02 Hemoglobin C Crystals Not Reportable 09/01/17 07:02 Schistocytes Few 09/01/17 07:02 Malaria parasites Not Reportable 09/01/17 07:02 Jonny Bodies Not Reportable 09/01/17 07:02 Hem Pathologist Commnt No 09/01/17 07:02 PT 22.7 Sec. (12.2-14.9) H 09/02/17 17:00 INR 1.87 (0.87-1.13) H 09/02/17 17:00 APTT 37.7 Sec. (24.2-36.6) H 09/02/17 17:00 POC ABG pH 7.435 (7.35-7.45) 08/29/17 10:58 POC ABG pCO2 34.8 (35-45) L 08/29/17 10:58 POC ABG pO2 93 (80-105) 08/29/17 10:58 POC ABG HCO3 23.4 08/29/17 10:58 POC ABG Total CO2 24 08/29/17 10:58 POC ABG O2 Sat 98 08/29/17 10:58 POC ABG Base Excess -1 08/29/17 10:58 FiO2 28 % 08/29/17 10:58 Sodium 143 mmol/L (137-145) 09/03/17 07:31 Potassium 3.2 mmol/L (3.6-5.0) L 09/03/17 07:31 Chloride 105.6 mmol/L (98-107) 09/03/17 07:31 Carbon Dioxide 25 mmol/L (22-30) 09/03/17 07:31 Anion Gap 16 mmol/L 09/03/17 07:31 BUN 19 mg/dL (9-20) 09/03/17 07:31 Creatinine 0.8 mg/dL (0.8-1.5) 09/03/17 07:31 Estimated GFR > 60 ml/min 09/03/17 07:31 BUN/Creatinine Ratio 24 % 09/03/17 07:31 Glucose 104 mg/dL (75-100) H 09/03/17 07:31 POC Glucose 112 (70-105) H 09/03/17 07:22 Lactic Acid 1.80 mmol/L (0.7-2.0) 08/28/17 Unknown Calcium 9.0 mg/dL (8.4-10.2) 09/03/17 07:31 Phosphorus 2.10 mg/dL (2.5-4.5) L 08/30/17 04:00 Magnesium 2.30 mg/dL (1.7-2.3) 08/30/17 04:00 Total Bilirubin 1.30 mg/dL (0.1-1.2) H 09/02/17 17:00 AST 88 units/L (5-40) H 09/02/17 17:00 ALT 69 units/L (7-56) H 09/02/17 17:00 Alkaline Phosphatase 91 units/L (35-129) 09/02/17 17:00 Total Creatine Kinase 155 units/L (55-170) 08/23/17 10:56 CK-MB (CK-2) 4.4 ng/mL (0.0-4.0) H 08/23/17 10:56 CK-MB (CK-2) Rel Index 2.8 (0-4) 08/23/17 10:56 Troponin T 0.297 ng/mL (0.00-0.029) H* 09/02/17 17:00 C-Reactive Protein 38.40 mg/dL (0.00-1.30) H 08/29/17 20:45 NT-Pro-B Natriuret Pep 80162 pg/mL (0-900) H 08/23/17 02:54 Total Protein 6.0 g/dL (6.3-8.2) L 09/02/17 17:00 Albumin 2.3 g/dL (3.9-5) L 09/02/17 17:00 Albumin/Globulin Ratio 0.6 % 09/02/17 17:00 Triglycerides 69 mg/dL (2-149) 08/23/17 02:54 Cholesterol 125 mg/dL (50-199) 08/23/17 02:54 LDL Cholesterol Direct 77 mg/dL (50-130) 08/23/17 02:54 HDL Cholesterol 36 mg/dL (40-59) L 08/23/17 02:54 Cholesterol/HDL Ratio 3.47 % 08/23/17 02:54 Prostate Specific Ag 96.82 ng/mL (0.00-4.00) H 08/30/17 18:11 Urine Color Yellow (Yellow) 08/28/17 21:00 Urine Turbidity Clear (Clear) 08/28/17 21:00 Urine pH 5.0 (5.0-7.0) 08/28/17 21:00 Ur Specific [place] 1.005 (1.003-1.030) 08/28/17 21:00 Urine Protein <15 mg/dl mg/dL (Negative) 08/28/17 21:00 Urine Glucose (UA) Neg mg/dL (Negative) 08/28/17 21:00 Urine Ketones Neg mg/dL (Negative) 08/28/17 21:00 Urine Blood Lg (Negative) 08/28/17 21:00 Urine Nitrite Neg (Negative) 08/28/17 21:00 Urine Bilirubin Neg (Negative) 08/28/17 21:00 Urine Urobilinogen < 2.0 mg/dL (<2.0) 08/28/17 21:00 Ur Leukocyte Esterase Lg (Negative) 08/28/17 21:00 Urine WBC (Auto) 43.0 /HPF (0.0-6.0) H 08/28/17 21:00 Urine RBC (Auto) > 182.0 /HPF (0.0-6.0) 08/28/17 21:00 U Epithel Cells (Auto) < 1.0 /HPF (0-13.0) 08/28/17 21:00 Uric Acid Crystals 2+ 08/28/17 21:00 Urine Mucus Few /HPF 08/28/17 21:00 Blood Type B POSITIVE 08/27/17 20:03 Antibody Screen Negative 08/27/17 20:03 Crossmatch See Detail 08/27/17 20:03
--- NOTE | 2017-09-03 12:46 | Progress Note ---
Subjective Narrative: doing OK still confused abd soft bengine. NG 400 ccs in 5 hours ,to start TPN , will check KUB in AM , cont same Objective Vital Signs - 12hr 09/03/17 09/03/17 09/03/17 06:26 07:46 07:59 Pulse Rate 80 Pulse Rate [ 70 74 Anterior Upper Lobe] Respiratory 18 18 Rate [Anterior Upper Lobe] Blood Pressure 118/76 O2 Sat by Pulse 100 Oximetry - Labs 09/03/17 07:31 09/03/17 07:31 Diabetes panel 09/02/17 09/03/17 Range/Units 17:00 07:31 Sodium 143 143 (137-145) mmol/L Potassium 3.4 L 3.2 L (3.6-5.0) mmol/L Chloride 104.3 105.6 (98-107) mmol/L Carbon Dioxide 27 25 (22-30) mmol/L BUN 17 19 (9-20) mg/dL Creatinine 0.8 0.8 (0.8-1.5) mg/dL Glucose 94 104 H (75-100) mg/dL Calcium 9.3 9.0 (8.4-10.2) mg/dL AST 88 H (5-40) units/L ALT 69 H (7-56) units/L Alkaline Phosphatase 91 (35-129) units/L Total Protein 6.0 L (6.3-8.2) g/dL Albumin 2.3 L (3.9-5) g/dL Calcium panel 09/02/17 09/03/17 Range/Units 17:00 07:31 Calcium 9.3 9.0 (8.4-10.2) mg/dL Albumin 2.3 L (3.9-5) g/dL Pituitary panel 09/02/17 09/03/17 Range/Units 17:00 07:31 Sodium 143 143 (137-145) mmol/L Potassium 3.4 L 3.2 L (3.6-5.0) mmol/L Chloride 104.3 105.6 (98-107) mmol/L Carbon Dioxide 27 25 (22-30) mmol/L BUN 17 19 (9-20) mg/dL Creatinine 0.8 0.8 (0.8-1.5) mg/dL Glucose 94 104 H (75-100) mg/dL Calcium 9.3 9.0 (8.4-10.2) mg/dL Adrenal panel 09/02/17 09/03/17 Range/Units 17:00 07:31 Sodium 143 143 (137-145) mmol/L Potassium 3.4 L 3.2 L (3.6-5.0) mmol/L Chloride 104.3 105.6 (98-107) mmol/L Carbon Dioxide 27 25 (22-30) mmol/L BUN 17 19 (9-20) mg/dL Creatinine 0.8 0.8 (0.8-1.5) mg/dL Glucose 94 104 H (75-100) mg/dL Calcium 9.3 9.0 (8.4-10.2) mg/dL Total Bilirubin 1.30 H (0.1-1.2) mg/dL AST 88 H (5-40) units/L ALT 69 H (7-56) units/L Alkaline Phosphatase 91 (35-129) units/L Total Protein 6.0 L (6.3-8.2) g/dL Albumin 2.3 L (3.9-5) g/dL
[2017-09-03] MEDS: HALDOL IV PRN (18:30)
[2017-09-03] MEDS ORDERED: TPN ADULT 2,400 ML IV SCH (20:00)
[2017-09-04] MEDS: ATIVAN IV PRN ×3 (04:37→23:43)
[2017-09-04] MEDS: SODIUM CHLORIDE FLUSH SYRINGE 10 ML IV SCH ×3 (04:39→23:42)
[2017-09-04] MEDS: ceFAZolin 2 GM in NACL 0.9% 100 ML IV SCH ×3 (05:44→23:45)
[2017-09-04] MEDS: LOPRESSOR PO SCH (05:45)
[2017-09-04] MEDS: PEPCID PO SCH ×3 (05:45→23:44)
[2017-09-04 06:03] LABS: Basophils % (Auto) 0.4 % (0.0-1.8); Eosinophils # (Auto) 0.3 K/mm3 (0.0-0.4); Eosinophils % (Auto) 2.6 % (0.0-4.3); Hematocrit 26.9 % (35.5-45.6); Hemoglobin 8.4 gm/dl (11.8-15.2); Lymphocytes # (Auto) 1.1 K/mm3 (1.2-5.4); Lymphocytes % (Auto) 8.5 % (13.4-35.0); Mean Corpuscular HGB Conc 31 % (32-34); Mean Corpuscular Volume 74 fl (84-94); Monocytes # (Auto) 0.7 K/mm3 (0.0-0.8); Monocytes % (Auto) 5.2 % (0.0-7.3); Platelet Count 297 K/mm3 (140-440); Red Blood Count 3.65 M/mm3 (3.65-5.03)
[2017-09-04 06:15] LABS: Mean Corpuscular Hemoglobin 23 pg (28-32); Red Cell Distribution Width 22.6 % (13.2-15.2)
[2017-09-04] MEDS: CARDIZEM PO SCH ×2 (06:37→07:20)
[2017-09-04] MEDS: ATROVENT IH SCH ×3 (07:35→20:14)
[2017-09-04 08:16] LABS: BUN/Creatinine Ratio 30; Blood Urea Nitrogen 21 mg/dL (9-20); Hemolysis Index 0
--- NOTE | 2017-09-04 09:09 | XRay Report ---
Single view abdomen: Compared to 09/03/17. History: Ileus. Findings: NG tube is within the stomach. Few distended loops of small bowel identified without significant interval change. Moderate amount of air and stool noted in the ascending colon. Impression: Distended loops of small bowel. Air in ascending colon.
--- NOTE | 2017-09-04 10:34 | Progress Note ---
Subjective - Reason for Consult Consult date: 09/04/17 Reason for consult: Psychiatry Follow-up - Chief Complaint Chief complaint: The patient has incoherent speech" 72-year-old AAM with a history of bipolar disorder, hypertension, bph, obesity, CHF, chronic atrial fibrillation, medical noncompliance, prior deep vein thrombosis, suspected CHRIS, chronic kidney disease 3, mild descending aortic aneurysm, measured at a stable 4.7 cm over several years, and single-vessel coronary artery disease with a patent LAD stent on a repeat cardiac catheterization 3 years ago, per the medical record. Today the patient is incoherent and confused during the assessment. He could not answer any questions asked of him. The patient is in restraints. Mental Status Exam - Vital signs Last Vital Signs Temp 98.1 F 09/04/17 02:36 Pulse 93 H 09/04/17 07:45 Resp 20 09/04/17 07:45 BP 150/94 09/04/17 02:36 Pulse Ox 100 09/04/17 07:35 - Exam Narrative exam: MSE could not be completed because of the patient's condition. Assessment and Plan Impression: Bipolar DO per Hx. Today the patient is incoherent and confused during the assessment. The patient is in restraints. Recommendation/Plan: Psychiatry sign off, reconsult once the patient is more stable. Recommend Delirium precautions below: 1. Frequently reorient patient and involve him/her in their care (simple explanations of procedures, tests, medications). 2. Lights on and shades open during daytime hours. 3. Write date and goals of care in a visible place. 4. Try to avoid unnecessary interruptions to sleep during nighttime hours. 5. Obtain glasses, hearing aids from home if patient uses these at baseline. 6. Avoid medications that may exacerbate delirium (especially narcotics, benzodiazepines, barbiturates, ambien, lunesta, and medications with excessive anticholinergic properties). 7. D/C restraints when not indicated. .
--- NOTE | 2017-09-04 10:49 | Progress Note ---
Assessment and Plan Assessment and plan: Acute hypoxemic respiratory failure Patient extubated on 08/29/17. Continue O2 to maintain sats. BiPAP as clinically indicated. Ileus Cont TPN. NPO status. Surgery following Toxic metabolic encephalopathy Cont to treat underlying causes Acute on chronic diastolic heart failure Echo 04/2017 at [place] - LVEF 45-50%, moderate RV dysfunction, RVSP 49 mm Hg and dilated IVC Cont diuresis per Cardiology Permanent atrial fibrillation with RVR Continue Cardizem and Xarelto. Cardiology following. Sepsis ID following. Continue IV antibiotics. Complicated UTI with urinary retention. -08/24/17 SP cath was placed -08/27/17 CT abd showed free air intraperitoneal, SP cath, high density material in the urinary bladder, prominent prostate and bilateral renal calculi. -08/27/17 taken to the OR for cysto, evacuation of clots and merida placement by due to acute retention and exlap with evacuation of large amount of blood 2 L from abdominal cavity by Surgery. No bowel perforation History of CAD s/p PCI to LAD (2011) low salt diet and medical management History of ascending aortic aneurysm measuring [address] 03/2016 Chronic DVT on xarelto Acute renal failure Etiology likely secondary to Sepsis/ATN Resolving. Nephrology following. Systemic Hypertension Urinary retention Urology following Bipolar disorder Psych is following Non-compliance History Interval history: No new issues Hospitalist Physical - Constitutional Vitals: Temp Pulse Resp BP Pulse Ox 98.1 F 93 H 20 150/94 100 09/04/17 02:36 09/04/17 07:45 09/04/17 07:45 09/04/17 02:36 09/04/17 07:35 General appearance: Present: no acute distress - EENT Eyes: Present: PERRL, EOM intact ENT: hearing intact, clear oral mucosa, dentition normal - Neck Neck: Present: supple, normal ROM - Respiratory Respiratory effort: normal Respiratory: bilateral: CTA - Cardiovascular Rhythm: regular Heart Sounds: Present: S1 & S2. Absent: gallop, rub - Extremities Extremities: no ischemia, No edema, Full ROM - Abdominal General gastrointestinal: soft, non-tender, non-distended, normal bowel sounds - Integumentary Integumentary: Present: clear, warm, dry - Neurologic Neurologic: CNII-XII intact, moves all extremities Results - Labs CBC & Chem 7: 09/04/17 Unknown 09/04/17 Unknown Labs: Laboratory Last Values WBC 12.6 K/mm3 (4.5-11.0) H 09/04/17 Unknown RBC 3.65 M/mm3 (3.65-5.03) 09/04/17 Unknown Hgb 8.4 gm/dl (11.8-15.2) L 09/04/17 Unknown Hct 26.9 % (35.5-45.6) L 09/04/17 Unknown MCV 74 fl (84-94) L 09/04/17 Unknown MCH 23 pg (28-32) L 09/04/17 Unknown MCHC 31 % (32-34) L 09/04/17 Unknown RDW 22.6 % (13.2-15.2) H 09/04/17 Unknown Plt Count 297 K/mm3 (140-440) 09/04/17 Unknown Lymph % (Auto) 8.5 % (13.4-35.0) L 09/04/17 Unknown [place] % (Auto) 5.2 % (0.0-7.3) 09/04/17 Unknown Eos % (Auto) 2.6 % (0.0-4.3) 09/04/17 Unknown Baso % (Auto) 0.4 % (0.0-1.8) 09/04/17 Unknown Lymph # 1.1 K/mm3 (1.2-5.4) L 09/04/17 Unknown [place] # 0.7 K/mm3 (0.0-0.8) 09/04/17 Unknown Eos # 0.3 K/mm3 (0.0-0.4) 09/04/17 Unknown Baso # 0.0 K/mm3 (0.0-0.1) 09/04/17 Unknown Add Manual Diff Complete 09/01/17 07:02 Total Counted 100 09/01/17 07:02 Seg Neutrophils % 83.3 % (40.0-70.0) H 09/04/17 Unknown Seg Neuts % (Manual) 93.0 % (40.0-70.0) H 09/01/17 07:02 Band Neutrophils % 0 % 09/01/17 07:02 Lymphocytes % (Manual) 3.0 % (13.4-35.0) L 09/01/17 07:02 Reactive Lymphs % (Man) 0 % 09/01/17 07:02 Monocytes % (Manual) 2.0 % (0.0-7.3) 09/01/17 07:02 Eosinophils % (Manual) 2.0 % (0.0-4.3) 09/01/17 07:02 Basophils % (Manual) 0 % (0.0-1.8) 09/01/17 07:02 Metamyelocytes % 0 % 09/01/17 07:02 Myelocytes % 0 % 09/01/17 07:02 Promyelocytes % 0 % 09/01/17 07:02 Blast Cells % 0 % 09/01/17 07:02 Nucleated RBC % Not Reportable 09/01/17 07:02 Seg Neutrophils # 10.5 K/mm3 (1.8-7.7) H 09/04/17 Unknown Seg Neutrophils # Man 12.6 K/mm3 (1.8-7.7) H 09/01/17 07:02 Band Neutrophils # 0.0 K/mm3 09/01/17 07:02 Lymphocytes # (Manual) 0.4 K/mm3 (1.2-5.4) L 09/01/17 07:02 Abs React Lymphs (Man) 0.0 K/mm3 09/01/17 07:02 Monocytes # (Manual) 0.3 K/mm3 (0.0-0.8) 09/01/17 07:02 Eosinophils # (Manual) 0.3 K/mm3 (0.0-0.4) 09/01/17 07:02 Basophils # (Manual) 0.0 K/mm3 (0.0-0.1) 09/01/17 07:02 Metamyelocytes # 0.0 K/mm3 09/01/17 07:02 Myelocytes # 0.0 K/mm3 09/01/17 07:02 Promyelocytes # 0.0 K/mm3 09/01/17 07:02 Blast Cells # 0.0 K/mm3 09/01/17 07:02 WBC Morphology Not Reportable 09/01/17 07:02 Hypersegmented Neuts Not Reportable 09/01/17 07:02 Hyposegmented Neuts Not Reportable 09/01/17 07:02 Hypogranular Neuts Not Reportable 09/01/17 07:02 Smudge Cells Not Reportable 09/01/17 07:02 Toxic Granulation Not Reportable 09/01/17 07:02 Toxic Vacuolation Not Reportable 09/01/17 07:02 Dohle Bodies Not Reportable 09/01/17 07:02 Pelger-Huet Anomaly Not Reportable 09/01/17 07:02 Cande Rods Not Reportable 09/01/17 07:02 Platelet Estimate Cons 09/01/17 07:02 Clumped Platelets Not Reportable 09/01/17 07:02 Plt Clumps, EDTA Not Reportable 09/01/17 07:02 Large Platelets Not Reportable 09/01/17 07:02 Giant Platelets Not Reportable 09/01/17 07:02 Platelet Satelliting Not Reportable 09/01/17 07:02 Plt Morphology Comment Not Reportable 09/01/17 07:02 RBC Morphology Not Reportable 09/01/17 07:02 Dimorphic RBCs Not Reportable 09/01/17 07:02 Polychromasia Not Reportable 09/01/17 07:02 Hypochromasia 2+ 09/01/17 07:02 Poikilocytosis 2+ 09/01/17 07:02 Anisocytosis 2+ 09/01/17 07:02 Microcytosis Not Reportable 09/01/17 07:02 Macrocytosis Not Reportable 09/01/17 07:02 Spherocytes Not Reportable 09/01/17 07:02 Pappenheimer Bodies Not Reportable 09/01/17 07:02 Sickle Cells Not Reportable 09/01/17 07:02 Target Cells Few 09/01/17 07:02 Tear Drop Cells Not Reportable 09/01/17 07:02 Ovalocytes Not Reportable 09/01/17 07:02 Helmet Cells Not Reportable 09/01/17 07:02 Morrell-[place]athalie Bodies Not Reportable 09/01/17 07:02 [place]ouris Rings Not Reportable 09/01/17 07:02 [place] Cells 1+ 09/01/17 07:02 Bite Cells Not Reportable 09/01/17 07:02 Crenated Cell Not Reportable 09/01/17 07:02 Elliptocytes Not Reportable 09/01/17 07:02 Acanthocytes (Spur) 1+ 09/01/17 07:02 Rouleaux Not Reportable 09/01/17 07:02 Hemoglobin C Crystals Not Reportable 09/01/17 07:02 Schistocytes Few 09/01/17 07:02 Malaria parasites Not Reportable 09/01/17 07:02 Jonny Bodies Not Reportable 09/01/17 07:02 Hem Pathologist Commnt No 09/01/17 07:02 PT 22.7 Sec. (12.2-14.9) H 09/02/17 17:00 INR 1.87 (0.87-1.13) H 09/02/17 17:00 APTT 37.7 Sec. (24.2-36.6) H 09/02/17 17:00 POC ABG pH 7.435 (7.35-7.45) 08/29/17 10:58 POC ABG pCO2 34.8 (35-45) L 08/29/17 10:58 POC ABG pO2 93 (80-105) 08/29/17 10:58 POC ABG HCO3 23.4 08/29/17 10:58 POC ABG Total CO2 24 08/29/17 10:58 POC ABG O2 Sat 98 08/29/17 10:58 POC ABG Base Excess -1 08/29/17 10:58 FiO2 28 % 08/29/17 10:58 Sodium 143 mmol/L (137-145) 09/04/17 Unknown Potassium 3.3 mmol/L (3.6-5.0) L 09/04/17 Unknown Chloride 106.5 mmol/L (98-107) 09/04/17 Unknown Carbon Dioxide 24 mmol/L (22-30) 09/04/17 Unknown Anion Gap 16 mmol/L 09/04/17 Unknown BUN 21 mg/dL (9-20) H 09/04/17 Unknown Creatinine 0.7 mg/dL (0.8-1.5) L 09/04/17 Unknown Estimated GFR > 60 ml/min 09/04/17 Unknown BUN/Creatinine Ratio 30 % 09/04/17 Unknown Glucose 114 mg/dL (75-100) H 09/04/17 Unknown POC Glucose 123 (70-105) H 09/04/17 00:33 Lactic Acid 1.80 mmol/L (0.7-2.0) 08/28/17 Unknown Calcium 9.0 mg/dL (8.4-10.2) 09/04/17 Unknown Phosphorus 1.90 mg/dL (2.5-4.5) L 09/04/17 Unknown Magnesium 1.90 mg/dL (1.7-2.3) 09/04/17 Unknown Total Bilirubin 1.30 mg/dL (0.1-1.2) H 09/02/17 17:00 AST 88 units/L (5-40) H 09/02/17 17:00 ALT 69 units/L (7-56) H 09/02/17 17:00 Alkaline Phosphatase 91 units/L (35-129) 09/02/17 17:00 Total Creatine Kinase 155 units/L (55-170) 08/23/17 10:56 CK-MB (CK-2) 4.4 ng/mL (0.0-4.0) H 08/23/17 10:56 CK-MB (CK-2) Rel Index 2.8 (0-4) 08/23/17 10:56 Troponin T 0.297 ng/mL (0.00-0.029) H* 09/02/17 17:00 C-Reactive Protein 38.40 mg/dL (0.00-1.30) H 08/29/17 20:45 NT-Pro-B Natriuret Pep 75251 pg/mL (0-900) H 08/23/17 02:54 Total Protein 6.0 g/dL (6.3-8.2) L 09/02/17 17:00 Albumin 2.3 g/dL (3.9-5) L 09/02/17 17:00 Albumin/Globulin Ratio 0.6 % 09/02/17 17:00 Triglycerides 69 mg/dL (2-149) 08/23/17 02:54 Cholesterol 125 mg/dL (50-199) 08/23/17 02:54 LDL Cholesterol Direct 77 mg/dL (50-130) 08/23/17 02:54 HDL Cholesterol 36 mg/dL (40-59) L 08/23/17 02:54 Cholesterol/HDL Ratio 3.47 % 08/23/17 02:54 Prostate Specific Ag 96.82 ng/mL (0.00-4.00) H 08/30/17 18:11 Urine Color Yellow (Yellow) 08/28/17 21:00 Urine Turbidity Clear (Clear) 07/09/18 21:00 Urine pH 5.0 (5.0-7.0) 08/28/17 21:00 Ur Specific [place] 1.005 (1.003-1.030) 08/28/17 21:00 Urine Protein <15 mg/dl mg/dL (Negative) 08/28/17 21:00 Urine Glucose (UA) Neg mg/dL (Negative) 08/28/17 21:00 Urine Ketones Neg mg/dL (Negative) 08/28/17 21:00 Urine Blood Lg (Negative) 08/28/17 21:00 Urine Nitrite Neg (Negative) 08/28/17 21:00 Urine Bilirubin Neg (Negative) 08/28/17 21:00 Urine Urobilinogen < 2.0 mg/dL (<2.0) 08/28/17 21:00 Ur Leukocyte Esterase Lg (Negative) 08/28/17 21:00 Urine WBC (Auto) 43.0 /HPF (0.0-6.0) H 08/28/17 21:00 Urine RBC (Auto) > 182.0 /HPF (0.0-6.0) 08/28/17 21:00 U Epithel Cells (Auto) < 1.0 /HPF (0-13.0) 08/28/17 21:00 Uric Acid Crystals 2+ 08/28/17 21:00 Urine Mucus Few /HPF 08/28/17 21:00 Blood Type B POSITIVE 08/27/17 20:03 Antibody Screen Negative 08/27/17 20:03 Crossmatch See Detail 08/27/17 20:03
--- NOTE | 2017-09-04 10:59 | Progress Note ---
Assessment and Plan 72 y/o male with known CHF and Afib admitted with CHF exacerbation, resolved, now readmitted to the ICU for hypotension (likely from medication) and malfunctioning suprapubic catheter. 1. Pulm status stable 2. Will sign off, call if questions Subjective Date of service: 09/04/17 Principal diagnosis: afib with RVR and CHF excacerbation Interval history: Pulm status is stable Objective Vital Signs - 12hr 09/04/17 09/04/17 09/04/17 02:36 07:35 07:45 Temperature 98.1 F Pulse Rate 84 Pulse Rate [ 78 93 H Anterior Upper Lobe] Respiratory 20 Rate Respiratory 20 20 Rate [Anterior Upper Lobe] Blood Pressure 150/94 [Right] O2 Sat by Pulse 100 100 Oximetry Constitutional: no acute distress, alert Eyes: non-icteric Neck: supple Effort: mildly labored Ascultation: Bilateral: clear (anteriorly), other (coarse BS bilaterally) Cardiovascular: irregular rhythm (no mrg), other (tachycardia noted) Gastrointestinal: normoactive bowel sounds, soft, non-tender, other (NG tube present) Extremities: no cyanosis, no edema, pink and warm Neurologic: normal mental status, non-focal exam, pupils equal and round Psychiatric: mood appropriate, affect normal CBC and BMP: 09/04/17 Unknown 09/04/17 Unknown ABG, PT/INR, D-dimer: ABG POC ABG pH 7.435 (7.35-7.45) 08/29/17 10:58 POC ABG pCO2 34.8 (35-45) L 08/29/17 10:58 POC ABG pO2 93 (80-105) 08/29/17 10:58 POC ABG HCO3 23.4 08/29/17 10:58 POC ABG Total CO2 24 08/29/17 10:58 POC ABG O2 Sat 98 08/29/17 10:58 PT/INR, D-dimer PT 22.7 Sec. (12.2-14.9) H 09/02/17 17:00 INR 1.87 (0.87-1.13) H 09/02/17 17:00 Abnormal lab findings: Abnormal Labs 08/23/17 08/23/17 08/23/17 02:54 02:54 02:54 WBC Hgb 10.7 L Hct 33.8 L MCV 71 L MCH 23 L MCHC RDW 22.8 H Lymph % (Auto) [place] % (Auto) 12.4 H Lymph # [place] # Seg Neutrophils % Seg Neuts % (Manual) Lymphocytes % (Manual) Monocytes % (Manual) Seg Neutrophils # Seg Neutrophils # Man Lymphocytes # (Manual) Monocytes # (Manual) PT INR APTT POC ABG pH POC ABG pCO2 POC ABG pO2 Sodium Potassium Chloride Carbon Dioxide BUN 28 H Creatinine Glucose POC Glucose Lactic Acid Calcium Phosphorus Total Bilirubin AST ALT CK-MB (CK-2) Troponin T 0.077 H C-Reactive Protein NT-Pro-B Natriuret Pep 47946 H Total Protein Albumin HDL Cholesterol 36 L Prostate Specific Ag Urine WBC (Auto) Crossmatch 08/23/17 08/23/17 08/23/17 05:03 05:13 10:56 WBC Hgb Hct MCV MCH MCHC RDW Lymph % (Auto) [place] % (Auto) Lymph # [place] # Seg Neutrophils % Seg Neuts % (Manual) Lymphocytes % (Manual) Monocytes % (Manual) Seg Neutrophils # Seg Neutrophils # Man Lymphocytes # (Manual) Monocytes # (Manual) PT 15.5 H INR 1.17 H APTT POC ABG pH POC ABG pCO2 POC ABG pO2 Sodium Potassium Chloride Carbon Dioxide BUN Creatinine Glucose POC Glucose Lactic Acid Calcium Phosphorus Total Bilirubin AST ALT CK-MB (CK-2) 4.4 H 4.4 H Troponin T 0.062 H 0.077 H D C-Reactive Protein NT-Pro-B Natriuret Pep Total Protein Albumin HDL Cholesterol Prostate Specific Ag Urine WBC (Auto) Crossmatch 08/23/17 08/24/17 08/24/17 20:28 04:00 04:00 WBC Hgb 11.1 L Hct 34.4 L MCV 71 L MCH 23 L MCHC RDW 22.5 H Lymph % (Auto) 5.6 L [place] % (Auto) 9.4 H Lymph # 0.6 L [place] # 1.0 H Seg Neutrophils % 84.8 H Seg Neuts % (Manual) Lymphocytes % (Manual) Monocytes % (Manual) Seg Neutrophils # 9.2 H Seg Neutrophils # Man Lymphocytes # (Manual) Monocytes # (Manual) PT INR APTT POC ABG pH POC ABG pCO2 POC ABG pO2 52 L Sodium 146 H D Potassium Chloride Carbon Dioxide BUN 35 H Creatinine 1.8 H Glucose POC Glucose Lactic Acid Calcium Phosphorus Total Bilirubin AST ALT CK-MB (CK-2) Troponin T C-Reactive Protein NT-Pro-B Natriuret Pep Total Protein Albumin HDL Cholesterol Prostate Specific Ag Urine WBC (Auto) Crossmatch 08/25/17 08/25/17 08/26/17 Unknown Unknown 04:20 WBC Hgb 10.7 L 10.2 L Hct 33.5 L 31.7 L MCV 70 L 70 L MCH 23 L 23 L MCHC RDW 22.5 H 22.2 H Lymph % (Auto) [place] % (Auto) Lymph # [place] # Seg Neutrophils % Seg Neuts % (Manual) Lymphocytes % (Manual) Monocytes % (Manual) Seg Neutrophils # Seg Neutrophils # Man Lymphocytes # (Manual) Monocytes # (Manual) PT INR APTT POC ABG pH POC ABG pCO2 POC ABG pO2 Sodium Potassium Chloride Carbon Dioxide 31 H BUN 37 H Creatinine 1.6 H Glucose POC Glucose Lactic Acid Calcium Phosphorus Total Bilirubin AST ALT CK-MB (CK-2) Troponin T C-Reactive Protein NT-Pro-B Natriuret Pep Total Protein Albumin HDL Cholesterol Prostate Specific Ag Urine WBC (Auto) Crossmatch 08/26/17 08/27/17 08/27/17 04:20 03:29 06:50 WBC Hgb 9.7 L Hct 30.7 L MCV 71 L MCH 23 L MCHC RDW 21.3 H Lymph % (Auto) [place] % (Auto) Lymph # [place] # Seg Neutrophils % Seg Neuts % (Manual) Lymphocytes % (Manual) Monocytes % (Manual) Seg Neutrophils # Seg Neutrophils # Man Lymphocytes # (Manual) Monocytes # (Manual) PT INR APTT POC ABG pH POC ABG pCO2 POC ABG pO2 Sodium Potassium Chloride 95.6 L Carbon Dioxide 36 H BUN 30 H Creatinine Glucose 112 H POC Glucose 146 H Lactic Acid Calcium Phosphorus Total Bilirubin AST ALT CK-MB (CK-2) Troponin T C-Reactive Protein NT-Pro-B Natriuret Pep Total Protein Albumin HDL Cholesterol Prostate Specific Ag Urine WBC (Auto) Crossmatch 08/27/17 08/27/17 08/27/17 06:50 09:12 15:40 WBC Hgb Hct MCV MCH MCHC RDW Lymph % (Auto) [place] % (Auto) Lymph # [place] # Seg Neutrophils % Seg Neuts % (Manual) Lymphocytes % (Manual) Monocytes % (Manual) Seg Neutrophils # Seg Neutrophils # Man Lymphocytes # (Manual) Monocytes # (Manual) PT 22.6 H INR 1.86 H APTT POC ABG pH POC ABG pCO2 POC ABG pO2 Sodium Potassium Chloride 96.9 L Carbon Dioxide BUN 32 H Creatinine 1.9 H D Glucose 115 H POC Glucose 115 H Lactic Acid Calcium Phosphorus Total Bilirubin AST ALT CK-MB (CK-2) Troponin T C-Reactive Protein NT-Pro-B Natriuret Pep Total Protein Albumin HDL Cholesterol Prostate Specific Ag Urine WBC (Auto) Crossmatch 08/27/17 08/28/17 08/28/17 20:03 01:04 02:40 WBC Hgb Hct MCV MCH MCHC RDW Lymph % (Auto) [place] % (Auto) Lymph # [place] # Seg Neutrophils % Seg Neuts % (Manual) Lymphocytes % (Manual) Monocytes % (Manual) Seg Neutrophils # Seg Neutrophils # Man Lymphocytes # (Manual) Monocytes # (Manual) PT INR APTT POC ABG pH 7.328 L POC ABG pCO2 POC ABG pO2 Sodium 135 L Potassium Chloride 97.6 L Carbon Dioxide BUN 37 H Creatinine 2.5 H Glucose 127 H POC Glucose Lactic Acid Calcium 7.5 L Phosphorus Total Bilirubin AST ALT CK-MB (CK-2) Troponin T C-Reactive Protein NT-Pro-B Natriuret Pep Total Protein Albumin HDL Cholesterol Prostate Specific Ag Urine WBC (Auto) Crossmatch See Detail 08/28/17 08/28/17 08/28/17 02:40 04:16 12:10 WBC 12.4 H 15.6 H Hgb 10.8 L 9.9 L Hct 34.5 L 31.2 L MCV 74 L 74 L MCH 23 L 23 L MCHC 31 L RDW 23.6 H 23.2 H Lymph % (Auto) 4.0 L [place] % (Auto) 8.8 H Lymph # 0.5 L [place] # 1.1 H Seg Neutrophils % 87.0 H Seg Neuts % (Manual) 89.0 H Lymphocytes % (Manual) 3.0 L Monocytes % (Manual) 8.0 H Seg Neutrophils # 10.8 H Seg Neutrophils # Man 13.9 H Lymphocytes # (Manual) 0.5 L Monocytes # (Manual) 1.2 H PT INR APTT POC ABG pH POC ABG pCO2 POC ABG pO2 110 H Sodium Potassium Chloride Carbon Dioxide BUN Creatinine Glucose POC Glucose Lactic Acid Calcium Phosphorus Total Bilirubin AST ALT CK-MB (CK-2) Troponin T C-Reactive Protein NT-Pro-B Natriuret Pep Total Protein Albumin HDL Cholesterol Prostate Specific Ag Urine WBC (Auto) Crossmatch 08/28/17 08/28/17 08/28/17 12:10 12:10 15:30 WBC Hgb Hct MCV MCH MCHC RDW Lymph % (Auto) [place] % (Auto) Lymph # [place] # Seg Neutrophils % Seg Neuts % (Manual) Lymphocytes % (Manual) Monocytes % (Manual) Seg Neutrophils # Seg Neutrophils # Man Lymphocytes # (Manual) Monocytes # (Manual) PT 22.5 H INR 1.85 H APTT POC ABG pH POC ABG pCO2 POC ABG pO2 Sodium Potassium Chloride Carbon Dioxide BUN 40 H Creatinine 2.4 H Glucose 118 H POC Glucose Lactic Acid 2.90 H* Calcium 7.3 L Phosphorus Total Bilirubin 1.40 H AST ALT CK-MB (CK-2) Troponin T C-Reactive Protein NT-Pro-B Natriuret Pep Total Protein 5.3 L Albumin 2.1 L HDL Cholesterol Prostate Specific Ag Urine WBC (Auto) Crossmatch 08/28/17 08/28/17 08/29/17 19:15 21:00 03:30 WBC 18.9 H Hgb 9.5 L Hct 29.8 L MCV 73 L MCH 23 L MCHC RDW 23.0 H Lymph % (Auto) 4.7 L [place] % (Auto) 9.2 H Lymph # 0.9 L [place] # 1.7 H Seg Neutrophils % 85.9 H Seg Neuts % (Manual) Lymphocytes % (Manual) Monocytes % (Manual) Seg Neutrophils # 16.2 H Seg Neutrophils # Man Lymphocytes # (Manual) Monocytes # (Manual) PT INR APTT POC ABG pH POC ABG pCO2 POC ABG pO2 Sodium Potassium Chloride Carbon Dioxide BUN Creatinine Glucose POC Glucose 125 H Lactic Acid Calcium Phosphorus Total Bilirubin AST ALT CK-MB (CK-2) Troponin T C-Reactive Protein NT-Pro-B Natriuret Pep Total Protein Albumin HDL Cholesterol Prostate Specific Ag Urine WBC (Auto) 43.0 H Crossmatch 08/29/17 08/29/17 08/29/17 03:30 04:10 10:58 WBC Hgb Hct MCV MCH MCHC RDW Lymph % (Auto) [place] % (Auto) Lymph # [place] # Seg Neutrophils % Seg Neuts % (Manual) Lymphocytes % (Manual) Monocytes % (Manual) Seg Neutrophils # Seg Neutrophils # Man Lymphocytes # (Manual) Monocytes # (Manual) PT INR APTT POC ABG pH POC ABG pCO2 34.8 L POC ABG pO2 130 H Sodium Potassium Chloride Carbon Dioxide BUN 46 H Creatinine 1.7 H Glucose 121 H POC Glucose Lactic Acid Calcium 7.6 L Phosphorus Total Bilirubin AST ALT CK-MB (CK-2) Troponin T C-Reactive Protein NT-Pro-B Natriuret Pep Total Protein Albumin HDL Cholesterol Prostate Specific Ag Urine WBC (Auto) Crossmatch 08/29/17 08/29/17 08/29/17 17:22 20:45 23:41 WBC Hgb Hct MCV MCH MCHC RDW Lymph % (Auto) [place] % (Auto) Lymph # [place] # Seg Neutrophils % Seg Neuts % (Manual) Lymphocytes % (Manual) Monocytes % (Manual) Seg Neutrophils # Seg Neutrophils # Man Lymphocytes # (Manual) Monocytes # (Manual) PT INR APTT POC ABG pH POC ABG pCO2 POC ABG pO2 Sodium Potassium Chloride Carbon Dioxide BUN Creatinine Glucose POC Glucose 119 H 113 H Lactic Acid Calcium Phosphorus Total Bilirubin AST ALT CK-MB (CK-2) Troponin T C-Reactive Protein 38.40 H NT-Pro-B Natriuret Pep Total Protein Albumin HDL Cholesterol Prostate Specific Ag Urine WBC (Auto) Crossmatch 08/30/17 08/30/17 08/30/17 04:00 04:00 04:00 WBC 15.1 H Hgb 9.2 L Hct 28.9 L MCV 74 L MCH 23 L MCHC RDW 23.5 H Lymph % (Auto) 6.3 L [place] % (Auto) Lymph # 1.0 L [place] # 1.1 H Seg Neutrophils % 86.5 H Seg Neuts % (Manual) Lymphocytes % (Manual) Monocytes % (Manual) Seg Neutrophils # 13.0 H Seg Neutrophils # Man Lymphocytes # (Manual) Monocytes # (Manual) PT INR APTT POC ABG pH POC ABG pCO2 POC ABG pO2 Sodium Potassium Chloride 108.0 H Carbon Dioxide BUN 37 H Creatinine Glucose 112 H POC Glucose Lactic Acid Calcium 8.0 L Phosphorus 2.10 L Total Bilirubin AST ALT CK-MB (CK-2) Troponin T C-Reactive Protein NT-Pro-B Natriuret Pep Total Protein Albumin HDL Cholesterol Prostate Specific Ag Urine WBC (Auto) Crossmatch 08/30/17 08/30/17 08/30/17 05:34 12:00 17:14 WBC Hgb Hct MCV MCH MCHC RDW Lymph % (Auto) [place] % (Auto) Lymph # [place] # Seg Neutrophils % Seg Neuts % (Manual) Lymphocytes % (Manual) Monocytes % (Manual) Seg Neutrophils # Seg Neutrophils # Man Lymphocytes # (Manual) Monocytes # (Manual) PT INR APTT POC ABG pH POC ABG pCO2 POC ABG pO2 Sodium Potassium Chloride Carbon Dioxide BUN Creatinine Glucose POC Glucose 116 H 109 H 110 H Lactic Acid Calcium Phosphorus Total Bilirubin AST ALT CK-MB (CK-2) Troponin T C-Reactive Protein NT-Pro-B Natriuret Pep Total Protein Albumin HDL Cholesterol Prostate Specific Ag Urine WBC (Auto) Crossmatch 08/30/17 08/30/17 08/31/17 18:11 23:17 04:30 WBC 12.8 H Hgb 8.5 L Hct 26.7 L MCV 73 L MCH 23 L MCHC RDW 23.2 H Lymph % (Auto) [place] % (Auto) Lymph # [place] # Seg Neutrophils % Seg Neuts % (Manual) 97.0 H Lymphocytes % (Manual) 1.0 L Monocytes % (Manual) Seg Neutrophils # Seg Neutrophils # Man 12.4 H Lymphocytes # (Manual) 0.1 L Monocytes # (Manual) PT INR APTT POC ABG pH POC ABG pCO2 POC ABG pO2 Sodium Potassium Chloride Carbon Dioxide BUN Creatinine Glucose POC Glucose 126 H Lactic Acid Calcium Phosphorus Total Bilirubin AST ALT CK-MB (CK-2) Troponin T C-Reactive Protein NT-Pro-B Natriuret Pep Total Protein Albumin HDL Cholesterol Prostate Specific Ag 96.82 H Urine WBC (Auto) Crossmatch 08/31/17 09/01/17 09/01/17 12:24 07:02 07:02 WBC 13.6 H Hgb 9.1 L Hct 28.2 L MCV 72 L MCH 23 L MCHC RDW 23.5 H Lymph % (Auto) [place] % (Auto) Lymph # [place] # Seg Neutrophils % Seg Neuts % (Manual) 93.0 H Lymphocytes % (Manual) 3.0 L Monocytes % (Manual) Seg Neutrophils # Seg Neutrophils # Man 12.6 H Lymphocytes # (Manual) 0.4 L Monocytes # (Manual) PT INR APTT POC ABG pH POC ABG pCO2 POC ABG pO2 Sodium Potassium 3.2 L Chloride Carbon Dioxide BUN Creatinine 0.7 L Glucose 107 H POC Glucose 137 H Lactic Acid Calcium Phosphorus Total Bilirubin AST ALT CK-MB (CK-2) Troponin T C-Reactive Protein NT-Pro-B Natriuret Pep Total Protein Albumin HDL Cholesterol Prostate Specific Ag Urine WBC (Auto) Crossmatch 09/02/17 09/02/17 09/02/17 16:30 17:00 17:00 WBC 15.1 H Hgb 8.8 L Hct 28.0 L MCV 72 L MCH 23 L MCHC RDW 23.1 H Lymph % (Auto) 7.1 L [place] % (Auto) 8.5 H Lymph # 1.1 L [place] # 1.3 H Seg Neutrophils % 82.5 H Seg Neuts % (Manual) Lymphocytes % (Manual) Monocytes % (Manual) Seg Neutrophils # 12.4 H Seg Neutrophils # Man Lymphocytes # (Manual) Monocytes # (Manual) PT 22.7 H INR 1.87 H APTT 37.7 H POC ABG pH POC ABG pCO2 POC ABG pO2 Sodium Potassium 3.4 L Chloride Carbon Dioxide BUN Creatinine Glucose POC Glucose Lactic Acid Calcium Phosphorus Total Bilirubin 1.30 H AST 88 H ALT 69 H CK-MB (CK-2) Troponin T C-Reactive Protein NT-Pro-B Natriuret Pep Total Protein 6.0 L Albumin 2.3 L HDL Cholesterol Prostate Specific Ag Urine WBC (Auto) Crossmatch 09/02/17 09/03/17 09/03/17 17:00 07:22 07:31 WBC 13.3 H Hgb 8.7 L Hct 27.5 L MCV 73 L MCH 23 L MCHC RDW 23.1 H Lymph % (Auto) 8.0 L [place] % (Auto) Lymph # 1.1 L [place] # 0.9 H Seg Neutrophils % 82.4 H Seg Neuts % (Manual) Lymphocytes % (Manual) Monocytes % (Manual) Seg Neutrophils # 11.0 H Seg Neutrophils # Man Lymphocytes # (Manual) Monocytes # (Manual) PT INR APTT POC ABG pH POC ABG pCO2 POC ABG pO2 Sodium Potassium Chloride Carbon Dioxide BUN Creatinine Glucose POC Glucose 112 H Lactic Acid Calcium Phosphorus Total Bilirubin AST ALT CK-MB (CK-2) Troponin T 0.297 H* C-Reactive Protein NT-Pro-B Natriuret Pep Total Protein Albumin HDL Cholesterol Prostate Specific Ag Urine WBC (Auto) Crossmatch 09/03/17 09/04/17 09/04/17 07:31 00:33 Unknown WBC 12.6 H Hgb 8.4 L Hct 26.9 L MCV 74 L MCH 23 L MCHC 31 L RDW 22.6 H Lymph % (Auto) 8.5 L [place] % (Auto) Lymph # 1.1 L [place] # Seg Neutrophils % 83.3 H Seg Neuts % (Manual) Lymphocytes % (Manual) Monocytes % (Manual) Seg Neutrophils # 10.5 H Seg Neutrophils # Man Lymphocytes # (Manual) Monocytes # (Manual) PT INR APTT POC ABG pH POC ABG pCO2 POC ABG pO2 Sodium Potassium 3.2 L Chloride Carbon Dioxide BUN Creatinine Glucose 104 H POC Glucose 123 H Lactic Acid Calcium Phosphorus Total Bilirubin AST ALT CK-MB (CK-2) Troponin T C-Reactive Protein NT-Pro-B Natriuret Pep Total Protein Albumin HDL Cholesterol Prostate Specific Ag Urine WBC (Auto) Crossmatch 09/04/17 09/04/17 Unknown Unknown WBC Hgb Hct MCV MCH MCHC RDW Lymph % (Auto) [place] % (Auto) Lymph # [place] # Seg Neutrophils % Seg Neuts % (Manual) Lymphocytes % (Manual) Monocytes % (Manual) Seg Neutrophils # Seg Neutrophils # Man Lymphocytes # (Manual) Monocytes # (Manual) PT INR APTT POC ABG pH POC ABG pCO2 POC ABG pO2 Sodium Potassium 3.3 L Chloride Carbon Dioxide BUN 21 H Creatinine 0.7 L Glucose 114 H POC Glucose Lactic Acid Calcium Phosphorus 1.90 L Total Bilirubin AST ALT CK-MB (CK-2) Troponin T C-Reactive Protein NT-Pro-B Natriuret Pep Total Protein Albumin HDL Cholesterol Prostate Specific Ag Urine WBC (Auto) Crossmatch
--- NOTE | 2017-09-04 11:18 | Progress Note ---
Assessment and Plan Sepsis Acute SBO Acute on chronic diastolic heart failure Echo 04/2017 at [facility] - LVEF 45-50% with moderate RV dysfunctioin Permanent atrial fibrillation on diltiazem and metoprolol for rate control. History of CAD s/p PCI to LAD in 2011 History of ascending aortic aneurysm measuring [address] 03/2016 Chronic DVT on xarelto as an outpatient Chronic renal failure Systemic Hypertension Non-compliance Metoprolol and diltiazem for rate control. Subjective Date of service: 09/04/17 Principal diagnosis: afib with RVR and CHF excacerbation Interval history: Rapid afib on telemetry monitoring. Patient is NPO for acute SBO. Oral medications held. Objective Vital Signs Temp Pulse Pulse Resp Resp BP Pulse Ox 09/04/17 07:45 93 H 20 09/04/17 07:35 78 20 100 09/04/17 02:36 98.1 F 84 20 150/94 100 09/03/17 22:00 95 09/03/17 21:04 126 H 18 09/03/17 20:52 124 H 18 09/03/17 20:00 97.8 F 81 20 140/88 09/03/17 13:57 68 18 09/03/17 13:50 63 18 - Physical Examination General: No Apparent Distress HEENT: Positive: PERRL Cardiac: Positive: irregularly irregular Extremities: Absent: edema - Labs and Meds CBC 09/04/17 Range/Units Unknown WBC 12.6 H (4.5-11.0) K/mm3 RBC 3.65 (3.65-5.03) M/mm3 Hgb 8.4 L (11.8-15.2) gm/dl Hct 26.9 L (35.5-45.6) % Plt Count 297 (140-440) K/mm3 Lymph # 1.1 L (1.2-5.4) K/mm3 [place] # 0.7 (0.0-0.8) K/mm3 Eos # 0.3 (0.0-0.4) K/mm3 Baso # 0.0 (0.0-0.1) K/mm3 Comprehensive Metabolic Panel 09/04/17 Range/Units Unknown Sodium 143 (137-145) mmol/L Potassium 3.3 L (3.6-5.0) mmol/L Chloride 106.5 (98-107) mmol/L Carbon Dioxide 24 (22-30) mmol/L BUN 21 H (9-20) mg/dL Creatinine 0.7 L (0.8-1.5) mg/dL Glucose 114 H (75-100) mg/dL Calcium 9.0 (8.4-10.2) mg/dL
[2017-09-04] MEDS: XARELTO PO SCH (11:25)
[2017-09-04] MEDS: LOPRESSOR IV SCH ×3 (13:38→23:43)
[2017-09-04] MEDS: CARDIZEM/D5W 100MG/100ML 100 MG/100 ML BAG IV SCH (13:40)
--- NOTE | 2017-09-04 15:04 | Progress Note ---
Subjective Narrative: stable VS KUB seen with Dr Bhakta , air in the small bowel ,gastric distension gone will obtain gastrograffin GI , abd soft , some distension K to be supplemented Objective Vital Signs - 12hr 09/04/17 09/04/17 09/04/17 04:53 07:35 07:45 Temperature 97.2 F L Pulse Rate 80 Pulse Rate [ Anterior Bilateral Throughout] Pulse Rate [ 78 93 H Anterior Upper Lobe] Respiratory 20 Rate Respiratory Rate [Anterior Bilateral Throughout] Respiratory 20 20 Rate [Anterior Upper Lobe] Blood Pressure 126/85 O2 Sat by Pulse 97 100 Oximetry 09/04/17 09/04/17 09/04/17 09:44 12:21 13:30 Temperature 98.3 F 97.9 F Pulse Rate 99 H 63 Pulse Rate [ 89 Anterior Bilateral Throughout] Pulse Rate [ Anterior Upper Lobe] Respiratory 20 20 Rate Respiratory 20 Rate [Anterior Bilateral Throughout] Respiratory Rate [Anterior Upper Lobe] Blood Pressure 152/82 140/113 O2 Sat by Pulse 96 100 Oximetry 09/04/17 09/04/17 13:38 13:40 Temperature Pulse Rate 130 H Pulse Rate [ 100 H Anterior Bilateral Throughout] Pulse Rate [ Anterior Upper Lobe] Respiratory Rate Respiratory 20 Rate [Anterior Bilateral Throughout] Respiratory Rate [Anterior Upper Lobe] Blood Pressure 140/113 O2 Sat by Pulse Oximetry - Labs 09/04/17 Unknown 09/04/17 Unknown Diabetes panel 09/04/17 Range/Units Unknown Sodium 143 (137-145) mmol/L Potassium 3.3 L (3.6-5.0) mmol/L Chloride 106.5 (98-107) mmol/L Carbon Dioxide 24 (22-30) mmol/L BUN 21 H (9-20) mg/dL Creatinine 0.7 L (0.8-1.5) mg/dL Glucose 114 H (75-100) mg/dL Calcium 9.0 (8.4-10.2) mg/dL Calcium panel 09/04/17 09/04/17 Range/Units Unknown Unknown Calcium 9.0 (8.4-10.2) mg/dL Phosphorus 1.90 L (2.5-4.5) mg/dL Pituitary panel 09/04/17 Range/Units Unknown Sodium 143 (137-145) mmol/L Potassium 3.3 L (3.6-5.0) mmol/L Chloride 106.5 (98-107) mmol/L Carbon Dioxide 24 (22-30) mmol/L BUN 21 H (9-20) mg/dL Creatinine 0.7 L (0.8-1.5) mg/dL Glucose 114 H (75-100) mg/dL Calcium 9.0 (8.4-10.2) mg/dL Adrenal panel 09/04/17 Range/Units Unknown Sodium 143 (137-145) mmol/L Potassium 3.3 L (3.6-5.0) mmol/L Chloride 106.5 (98-107) mmol/L Carbon Dioxide 24 (22-30) mmol/L BUN 21 H (9-20) mg/dL Creatinine 0.7 L (0.8-1.5) mg/dL Glucose 114 H (75-100) mg/dL Calcium 9.0 (8.4-10.2) mg/dL
--- NOTE | 2017-09-04 15:36 | Progress Note ---
Assessment and Plan Assessment: 1) Sepsis with transient septic shock: still mild leukocytosis. Etiology most likely UTI. -blood cx neg 2) Complicated UTI: with urinary retention -08/24/17 SP cath was placed -08/27/17 CT abd showed free air intraperitoneal, SP cath, high density material in the urinary bladder, prominent prostate and bilateral renal calculi. -08/27/17 taken to the OR for cysto, evacuation of clots and merida placement by due to acute retention and exlap with evacuation of large amount of blood 2 L from abdominal cavity by Surgery. No bowel perf found. -08/28/17 UA showed 43 wbc, large LE. 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 Plan: -continue cefazolin D8/10 -to have gastrograffin GI I am signing off Thanks Kelly Pérez MD Infectious Diseases Specialist [facility] M [phone] O [phone] Subjective Date of service: 09/04/17 Principal diagnosis: afib with RVR and CHF excacerbation Interval history: feels better no fever still confused Microbiology: Blood cultures: 08/28 neg Urine cultures: 08/28 MSSA Respiratory cultures: 08/28 MSSA Current Antimicrobials: cefazolin 09/01 Prior Antimicrobials: cefepime vanco prn fluconazole Objective - Exam Narrative Exam: General appearance: Alert in NAD, conversant Eyes: anicteric sclerae, moist conjunctivae; no lid-lag; PERRLA HENT: Atraumatic; oropharynx clear Neck: Trachea midline; supple, no thyromegaly or lymphadenopathy Lungs: CTA, with normal respiratory effort and no intercostal retractions CV: rrr Abdomen: Soft, surg wound with dressings, drain with serous fluid, merida Extremities: No peripheral edema or extremity lymphadenopathy Skin: Normal temperature, turgor and texture; no rash, ulcers or subcutaneous nodules Psych: Appropriate affect, alert and oriented to person, place and time. Neuro: alert and oriented x 3. Moving all extermities Lines: - Constitutional Vitals: Vital Signs Temp Pulse Resp BP Pulse Ox 97.9 F 100 H 20 140/113 100 07/16/18 12:21 09/04/17 13:40 09/04/17 13:40 09/04/17 13:38 09/04/17 12:21 Temperature -Last 24 Hours Temperature 97.9 F Temperature 98.3 F Temperature 97.2 F Temperature 98.1 F Temperature 97.8 F Temperature 98.9 F - Labs CBC & Chem 7: 09/04/17 Unknown 09/04/17 Unknown Labs: Abnormal lab results 09/04/17 09/04/17 09/04/17 Range/Units 00:33 Unknown Unknown WBC 12.6 H (4.5-11.0) K/mm3 Hgb 8.4 L (11.8-15.2) gm/dl Hct 26.9 L (35.5-45.6) % MCV 74 L (84-94) fl MCH 23 L (28-32) pg MCHC 31 L (32-34) % RDW 22.6 H (13.2-15.2) % Lymph % (Auto) 8.5 L (13.4-35.0) % Lymph # 1.1 L (1.2-5.4) K/mm3 Seg Neutrophils % 83.3 H (40.0-70.0) % Seg Neutrophils # 10.5 H (1.8-7.7) K/mm3 Potassium 3.3 L (3.6-5.0) mmol/L BUN 21 H (9-20) mg/dL Creatinine 0.7 L (0.8-1.5) mg/dL Glucose 114 H (75-100) mg/dL POC Glucose 123 H (70-105) Phosphorus (2.5-4.5) mg/dL 09/04/17 Range/Units Unknown WBC (4.5-11.0) K/mm3 Hgb (11.8-15.2) gm/dl Hct (35.5-45.6) % MCV (84-94) fl MCH (28-32) pg MCHC (32-34) % RDW (13.2-15.2) % Lymph % (Auto) (13.4-35.0) % Lymph # (1.2-5.4) K/mm3 Seg Neutrophils % (40.0-70.0) % Seg Neutrophils # (1.8-7.7) K/mm3 Potassium (3.6-5.0) mmol/L BUN (9-20) mg/dL Creatinine (0.8-1.5) mg/dL Glucose (75-100) mg/dL POC Glucose (70-105) Phosphorus 1.90 L (2.5-4.5) mg/dL
[2017-09-04] MEDS ORDERED: TPN ADULT 2,400 ML IV SCH (20:00)
[2017-09-05] MEDS: ceFAZolin 2 GM in NACL 0.9% 100 ML IV SCH ×3 (06:59→23:09)
[2017-09-05] MEDS: CARDIZEM/D5W 100MG/100ML 100 MG/100 ML BAG IV SCH ×2 (07:00→22:38)
[2017-09-05] MEDS: LOPRESSOR IV SCH ×3 (07:00→22:47)
[2017-09-05 07:37] LABS: Basophils % (Auto) 0.3 % (0.0-1.8); Eosinophils # (Auto) 0.3 K/mm3 (0.0-0.4); Eosinophils % (Auto) 2.9 % (0.0-4.3); Hemoglobin 8.2 gm/dl (11.8-15.2); Lymphocytes # (Auto) 0.9 K/mm3 (1.2-5.4); Lymphocytes % (Auto) 7.7 % (13.4-35.0); Mean Corpuscular HGB Conc 32 % (32-34); Mean Corpuscular Volume 72 fl (84-94); Monocytes # (Auto) 0.5 K/mm3 (0.0-0.8); Monocytes % (Auto) 4.1 % (0.0-7.3); Platelet Count 328 K/mm3 (140-440)
[2017-09-05 07:40] LABS: Mean Corpuscular Hemoglobin 23 pg (28-32); Red Cell Distribution Width 23.2 % (13.2-15.2)
[2017-09-05] MEDS: ATROVENT IH SCH ×4 (09:35→20:02)
[2017-09-05 09:46] LABS: BUN/Creatinine Ratio 33; Blood Urea Nitrogen 20 mg/dL (9-20); Hemolysis Index 0
--- NOTE | 2017-09-05 10:28 | Fluoroscopy Report ---
SMALL BOWEL SERIES HISTORY: Distended small bowel, abdominal distention, rule out small bowel obstruction. FINDINGS: Correlation is made with a CT abdomen pelvis without contrast on 08/27/17. The previous CT did not demonstrate a small bowel obstruction although other findings are noted in the report. A modified small bowel series was performed. Only a 5 minute, 2.5 hour, 5 hour and 17 hour film were obtained. A nasogastric tube is in place. A surgical drain is identified in the pelvis. IVC filter is at the level of L3-4. The stomach and a few proximal small bowel loops are mildly distended with gas. Distal small bowel loops and colon are normal caliber. Oral contrast does reach the rectum on the 17 hour film. It is unclear if this represents a focal ileus or partial small bowel obstruction. After reviewing the CT abdomen and pelvis performed on 08/27/17, I favor a focal ileus. There is also suggestion of a small perforation along the dome of the bladder on the previous CT. These findings were discussed with Dr. Cortez at 1020 hrs. IMPRESSION: Probable focal ileus as described above. Close interval followup is recommended.
--- NOTE | 2017-09-05 10:29 | Progress Note ---
Assessment and Plan Sepsis Acute SBO Acute on chronic diastolic heart failure Echo 04/2017 at [place] - LVEF 45-50% with moderate RV dysfunctioin Permanent atrial fibrillation on diltiazem and metoprolol for rate control. History of CAD s/p PCI to LAD in 2011 History of ascending aortic aneurysm measuring [address] 03/2016 Chronic DVT on xarelto as an outpatient Chronic renal failure Systemic Hypertension Non-compliance Metoprolol and diltiazem for rate control. Subjective Date of service: 09/05/17 Principal diagnosis: afib with RVR and CHF excacerbation Interval history: Rapid afib on telemetry monitoring. Objective Vital Signs Temp Pulse Pulse Pulse Resp Resp Resp 09/05/17 09:35 120 H 123 H 18 18 09/05/17 08:33 98.5 F 99 H 20 09/05/17 07:00 134 H 09/05/17 06:38 09/05/17 06:29 98.3 F 92 H 20 09/04/17 23:43 127 H 09/04/17 23:34 89 24 09/04/17 23:02 98.8 F 87 24 09/04/17 22:49 24 09/04/17 21:00 128 H 09/04/17 20:30 114 H 22 09/04/17 20:17 09/04/17 20:15 112 H 22 09/04/17 17:37 136 H 09/04/17 17:11 81 09/04/17 15:56 128 H 20 09/04/17 13:40 100 H 20 09/04/17 13:38 130 H 09/04/17 13:30 89 20 09/04/17 12:21 97.9 F 63 20 BP BP Pulse Ox 09/05/17 09:35 09/05/17 08:33 159/71 89 09/05/17 07:00 09/05/17 06:38 173/90 09/05/17 06:29 91 09/04/17 23:43 138/70 09/04/17 23:34 95 09/04/17 23:02 138/70 95 09/04/17 22:49 138/70 09/04/17 21:00 09/04/17 20:30 09/04/17 20:17 95 09/04/17 20:15 07/16/18 17:37 129/79 09/04/17 17:11 127/79 92 09/04/17 15:56 136/97 98 09/04/17 13:40 09/04/17 13:38 140/113 09/04/17 13:30 09/04/17 12:21 140/113 100 - Physical Examination General: No Apparent Distress HEENT: Positive: PERRL Cardiac: Positive: irregularly irregular Neuro: Positive: Weakness Extremities: Absent: edema - Labs and Meds CBC 09/05/17 Range/Units Unknown WBC 11.5 H (4.5-11.0) K/mm3 RBC 3.60 L (3.65-5.03) M/mm3 Hgb 8.2 L (11.8-15.2) gm/dl Hct 26.0 L (35.5-45.6) % Plt Count 328 (140-440) K/mm3 Lymph # 0.9 L (1.2-5.4) K/mm3 [place] # 0.5 (0.0-0.8) K/mm3 Eos # 0.3 (0.0-0.4) K/mm3 Baso # 0.0 (0.0-0.1) K/mm3 Comprehensive Metabolic Panel 09/05/17 Range/Units Unknown Sodium 144 (137-145) mmol/L Potassium 3.5 L (3.6-5.0) mmol/L Chloride 106.4 (98-107) mmol/L Carbon Dioxide 26 (22-30) mmol/L BUN 20 (9-20) mg/dL Creatinine 0.6 L (0.8-1.5) mg/dL Glucose 108 H (75-100) mg/dL Calcium 9.0 (8.4-10.2) mg/dL
[2017-09-05] MEDS: XARELTO PO SCH (12:37)
[2017-09-05] MEDS: SODIUM CHLORIDE FLUSH SYRINGE 10 ML IV SCH ×2 (12:37→22:48)
[2017-09-05] MEDS: PEPCID PO SCH ×2 (12:37→22:41)
[2017-09-05] MEDS: ATIVAN IV PRN ×2 (14:08→22:43)
--- NOTE | 2017-09-05 14:43 | Progress Note ---
Assessment and Plan Assessment and plan: Acute hypoxemic respiratory failure - Patient extubated on 08/29/17. Continue O2 to maintain sats. BiPAP as clinically indicated. Ileus - Cont TPN. NPO status. Surgery following Toxic metabolic encephalopathy - Resolving - Supportive care Acute on chronic diastolic heart failure - Echo 04/2017 at [place] - LVEF 45-50%, moderate RV dysfunction, RVSP 49 mm Hg and dilated IVC - Cont diuresis per Cardiology Permanent atrial fibrillation with RVR - Continue Cardizem and Xarelto. Cardiology following. Sepsis - ID following. Continue IV antibiotic. Complicated UTI with urinary retention. -08/24/17 SP cath was placed -08/27/17 CT abd showed free air intraperitoneal, SP cath, high density material in the urinary bladder, prominent prostate and bilateral renal calculi. -08/27/17 taken to the OR for cysto, evacuation of clots and merida placement by due to acute retention and exlap with evacuation of large amount of blood 2 L from abdominal cavity by Surgery. No bowel perforation History of CAD s/p PCI to LAD (2011) low salt diet and medical management History of ascending aortic aneurysm measuring [address] 03/2016 Chronic DVT on xarelto Acute renal failure Etiology likely secondary to Sepsis/ATN Resolving. Nephrology following. Systemic Hypertension Urinary retention - Follow a cardiac cath in place, draining clean urine - Urology following Bipolar disorder Psych is following Disposition - Consider LTAC History Interval history: Patient was seen and evaluated this morning, agent was alert and oriented, NG- tube in place. Hospitalist Physical - Physical exam Narrative exam: Not in cardiopulmonary distress. NG tube in place. The patient appeared well nourished and normally developed. Vital signs as documented. Head exam is unremarkable. No scleral icterus . Neck is without jugular venous distension, thyromegaly, or carotid bruits. Lungs are clear to auscultation. Cardiac exam reveals regular rate and Rhythm. First and second heart sounds normal. No murmurs, rubs or gallops. Abdominal exam no distension. Extremities are nonedematous and both femoral and pedal pulses are normal. 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 No focal weakness. - Constitutional Vitals: Temp Pulse Resp BP Pulse Ox 98.5 F 120 H 18 159/71 89 09/05/17 08:33 09/05/17 09:35 09/05/17 09:35 09/05/17 08:33 09/05/17 08:33 General appearance: Present: no acute distress Results - Labs CBC & Chem 7: 09/05/17 Unknown 09/05/17 Unknown Labs: Laboratory Last Values WBC 11.5 K/mm3 (4.5-11.0) H 09/05/17 Unknown RBC 3.60 M/mm3 (3.65-5.03) L 09/05/17 Unknown Hgb 8.2 gm/dl (11.8-15.2) L 09/05/17 Unknown Hct 26.0 % (35.5-45.6) L 09/05/17 Unknown MCV 72 fl (84-94) L 09/05/17 Unknown MCH 23 pg (28-32) L 09/05/17 Unknown MCHC 32 % (32-34) 09/05/17 Unknown RDW 23.2 % (13.2-15.2) H 09/05/17 Unknown Plt Count 328 K/mm3 (140-440) 09/05/17 Unknown Lymph % (Auto) 7.7 % (13.4-35.0) L 09/05/17 Unknown [place] % (Auto) 4.1 % (0.0-7.3) 09/05/17 Unknown Eos % (Auto) 2.9 % (0.0-4.3) 09/05/17 Unknown Baso % (Auto) 0.3 % (0.0-1.8) 09/05/17 Unknown Lymph # 0.9 K/mm3 (1.2-5.4) L 09/05/17 Unknown [place] # 0.5 K/mm3 (0.0-0.8) 09/05/17 Unknown Eos # 0.3 K/mm3 (0.0-0.4) 09/05/17 Unknown Baso # 0.0 K/mm3 (0.0-0.1) 09/05/17 Unknown Add Manual Diff Complete 09/01/17 07:02 Total Counted 100 09/01/17 07:02 Seg Neutrophils % 85.0 % (40.0-70.0) H 09/05/17 Unknown Seg Neuts % (Manual) 93.0 % (40.0-70.0) H 09/01/17 07:02 Band Neutrophils % 0 % 09/01/17 07:02 Lymphocytes % (Manual) 3.0 % (13.4-35.0) L 09/01/17 07:02 Reactive Lymphs % (Man) 0 % 09/01/17 07:02 Monocytes % (Manual) 2.0 % (0.0-7.3) 09/01/17 07:02 Eosinophils % (Manual) 2.0 % (0.0-4.3) 09/01/17 07:02 Basophils % (Manual) 0 % (0.0-1.8) 09/01/17 07:02 Metamyelocytes % 0 % 09/01/17 07:02 Myelocytes % 0 % 09/01/17 07:02 Promyelocytes % 0 % 09/01/17 07:02 Blast Cells % 0 % 09/01/17 07:02 Nucleated RBC % Not Reportable 09/01/17 07:02 Seg Neutrophils # 9.8 K/mm3 (1.8-7.7) H 09/05/17 Unknown Seg Neutrophils # Man 12.6 K/mm3 (1.8-7.7) H 09/01/17 07:02 Band Neutrophils # 0.0 K/mm3 09/01/17 07:02 Lymphocytes # (Manual) 0.4 K/mm3 (1.2-5.4) L 09/01/17 07:02 Abs React Lymphs (Man) 0.0 K/mm3 09/01/17 07:02 Monocytes # (Manual) 0.3 K/mm3 (0.0-0.8) 09/01/17 07:02 Eosinophils # (Manual) 0.3 K/mm3 (0.0-0.4) 09/01/17 07:02 Basophils # (Manual) 0.0 K/mm3 (0.0-0.1) 09/01/17 07:02 Metamyelocytes # 0.0 K/mm3 09/01/17 07:02 Myelocytes # 0.0 K/mm3 09/01/17 07:02 Promyelocytes # 0.0 K/mm3 09/01/17 07:02 Blast Cells # 0.0 K/mm3 09/01/17 07:02 WBC Morphology Not Reportable 09/01/17 07:02 Hypersegmented Neuts Not Reportable 09/01/17 07:02 Hyposegmented Neuts Not Reportable 09/01/17 07:02 Hypogranular Neuts Not Reportable 09/01/17 07:02 Smudge Cells Not Reportable 09/01/17 07:02 Toxic Granulation Not Reportable 09/01/17 07:02 Toxic Vacuolation Not Reportable 09/01/17 07:02 Dohle Bodies Not Reportable 09/01/17 07:02 Pelger-Huet Anomaly Not Reportable 09/01/17 07:02 Cande Rods Not Reportable 09/01/17 07:02 Platelet Estimate Cons 09/01/17 07:02 Clumped Platelets Not Reportable 09/01/17 07:02 Plt Clumps, EDTA Not Reportable 09/01/17 07:02 Large Platelets Not Reportable 09/01/17 07:02 Giant Platelets Not Reportable 09/01/17 07:02 Platelet Satelliting Not Reportable 09/01/17 07:02 Plt Morphology Comment Not Reportable 09/01/17 07:02 RBC Morphology Not Reportable 09/01/17 07:02 Dimorphic RBCs Not Reportable 09/01/17 07:02 Polychromasia Not Reportable 09/01/17 07:02 Hypochromasia 2+ 09/01/17 07:02 Poikilocytosis 2+ 09/01/17 07:02 Anisocytosis 2+ 09/01/17 07:02 Microcytosis Not Reportable 09/01/17 07:02 Macrocytosis Not Reportable 09/01/17 07:02 Spherocytes Not Reportable 09/01/17 07:02 Pappenheimer Bodies Not Reportable 09/01/17 07:02 Sickle Cells Not Reportable 09/01/17 07:02 Target Cells Few 09/01/17 07:02 Tear Drop Cells Not Reportable 09/01/17 07:02 Ovalocytes Not Reportable 09/01/17 07:02 Helmet Cells Not Reportable 09/01/17 07:02 [place]-M[place] Bodies Not Reportable 09/01/17 07:02 [place] Rings Not Reportable 09/01/17 07:02 [place] Cells 1+ 09/01/17 07:02 Bite Cells Not Reportable 09/01/17 07:02 Crenated Cell Not Reportable 09/01/17 07:02 Elliptocytes Not Reportable 09/01/17 07:02 Acanthocytes (Spur) 1+ 09/01/17 07:02 Rouleaux Not Reportable 09/01/17 07:02 Hemoglobin C Crystals Not Reportable 09/01/17 07:02 Schistocytes Few 09/01/17 07:02 Malaria parasites Not Reportable 09/01/17 07:02 Jonny Bodies Not Reportable 09/01/17 07:02 Hem Pathologist Commnt No 09/01/17 07:02 PT 22.7 Sec. (12.2-14.9) H 09/02/17 17:00 INR 1.87 (0.87-1.13) H 09/02/17 17:00 APTT 37.7 Sec. (24.2-36.6) H 09/02/17 17:00 POC ABG pH 7.435 (7.35-7.45) 08/29/17 10:58 POC ABG pCO2 34.8 (35-45) L 08/29/17 10:58 POC ABG pO2 93 (80-105) 08/29/17 10:58 POC ABG HCO3 23.4 08/29/17 10:58 POC ABG Total CO2 24 08/29/17 10:58 POC ABG O2 Sat 98 08/29/17 10:58 POC ABG Base Excess -1 08/29/17 10:58 FiO2 28 % 08/29/17 10:58 Sodium 144 mmol/L (137-145) 09/05/17 Unknown Potassium 3.5 mmol/L (3.6-5.0) L 09/05/17 Unknown Chloride 106.4 mmol/L (98-107) 09/05/17 Unknown Carbon Dioxide 26 mmol/L (22-30) 09/05/17 Unknown Anion Gap 15 mmol/L 09/05/17 Unknown BUN 20 mg/dL (9-20) 09/05/17 Unknown Creatinine 0.6 mg/dL (0.8-1.5) L 09/05/17 Unknown Estimated GFR > 60 ml/min 09/05/17 Unknown BUN/Creatinine Ratio 33 % 09/05/17 Unknown Glucose 108 mg/dL (75-100) H 09/05/17 Unknown POC Glucose 114 (70-105) H 09/05/17 01:55 Lactic Acid 1.80 mmol/L (0.7-2.0) 08/28/17 Unknown Calcium 9.0 mg/dL (8.4-10.2) 09/05/17 Unknown Phosphorus 2.50 mg/dL (2.5-4.5) D 09/05/17 Unknown Magnesium 1.90 mg/dL (1.7-2.3) 09/05/17 Unknown Total Bilirubin 1.30 mg/dL (0.1-1.2) H 09/02/17 17:00 AST 88 units/L (5-40) H 09/02/17 17:00 ALT 69 units/L (7-56) H 09/02/17 17:00 Alkaline Phosphatase 91 units/L (35-129) 09/02/17 17:00 Total Creatine Kinase 155 units/L (55-170) 08/23/17 10:56 CK-MB (CK-2) 4.4 ng/mL (0.0-4.0) H 08/23/17 10:56 CK-MB (CK-2) Rel Index 2.8 (0-4) 08/23/17 10:56 Troponin T 0.297 ng/mL (0.00-0.029) H* 09/02/17 17:00 C-Reactive Protein 38.40 mg/dL (0.00-1.30) H 08/29/17 20:45 NT-Pro-B Natriuret Pep 36912 pg/mL (0-900) H 08/23/17 02:54 Total Protein 6.0 g/dL (6.3-8.2) L 09/02/17 17:00 Albumin 2.3 g/dL (3.9-5) L 09/02/17 17:00 Albumin/Globulin Ratio 0.6 % 09/02/17 17:00 Triglycerides 69 mg/dL (2-149) 08/23/17 02:54 Cholesterol 125 mg/dL (50-199) 08/23/17 02:54 LDL Cholesterol Direct 77 mg/dL (50-130) 08/23/17 02:54 HDL Cholesterol 36 mg/dL (40-59) L 08/23/17 02:54 Cholesterol/HDL Ratio 3.47 % 08/23/17 02:54 Prostate Specific Ag 96.82 ng/mL (0.00-4.00) H 08/30/17 18:11 Urine Color Yellow (Yellow) 08/28/17 21:00 Urine Turbidity Clear (Clear) 08/28/17 21:00 Urine pH 5.0 (5.0-7.0) 08/28/17 21:00 Ur Specific [place] 1.005 (1.003-1.030) 08/28/17 21:00 Urine Protein <15 mg/dl mg/dL (Negative) 08/28/17 21:00 Urine Glucose (UA) Neg mg/dL (Negative) 08/28/17 21:00 Urine Ketones Neg mg/dL (Negative) 08/28/17 21:00 Urine Blood Lg (Negative) 08/28/17 21:00 Urine Nitrite Neg (Negative) 08/28/17 21:00 Urine Bilirubin Neg (Negative) 08/28/17 21:00 Urine Urobilinogen < 2.0 mg/dL (<2.0) 08/28/17 21:00 Ur Leukocyte Esterase Lg (Negative) 08/28/17 21:00 Urine WBC (Auto) 43.0 /HPF (0.0-6.0) H 08/28/17 21:00 Urine RBC (Auto) > 182.0 /HPF (0.0-6.0) 08/28/17 21:00 U Epithel Cells (Auto) < 1.0 /HPF (0-13.0) 08/28/17 21:00 Uric Acid Crystals 2+ 08/28/17 21:00 Urine Mucus Few /HPF 08/28/17 21:00 Blood Type B POSITIVE 08/27/17 20:03 Antibody Screen Negative 08/27/17 20:03 Crossmatch See Detail 08/27/17 20:03
[2017-09-05] MEDS: HALDOL IV PRN ×2 (18:46→22:43)
[2017-09-05] MEDS ORDERED: TPN ADULT 2,400 ML IV SCH (20:00)
[2017-09-05] MEDS: TYLENOL PO PRN (22:40)
--- NOTE | 2017-09-06 00:17 | Progress Note ---
Subjective Narrative: No change in clinical status , Pt is confused xray reveiwed with Dr mayer , pic compatible with an Ileus ,case discusse karine RN ,npo,TPN , NG to suction , keep merida and suprapubic cystostomy .Will see PT PRN , Please call ,. Objective Vital Signs - 12hr 09/05/17 09/05/17 09/05/17 20:03 22:49 23:21 Temperature 99.0 F Pulse Rate 131 H 95 H Pulse Rate [ 76 Anterior Bilateral Throughout] Respiratory 20 Rate Respiratory 18 Rate [Anterior Bilateral Throughout] Blood Pressure 143/69 [Right] O2 Sat by Pulse 100 95 Oximetry - Labs 09/05/17 Unknown 09/05/17 Unknown Diabetes panel 09/05/17 Range/Units Unknown Sodium 144 (137-145) mmol/L Potassium 3.5 L (3.6-5.0) mmol/L Chloride 106.4 (98-107) mmol/L Carbon Dioxide 26 (22-30) mmol/L BUN 20 (9-20) mg/dL Creatinine 0.6 L (0.8-1.5) mg/dL Glucose 108 H (75-100) mg/dL Calcium 9.0 (8.4-10.2) mg/dL Calcium panel 09/05/17 09/05/17 Range/Units Unknown Unknown Calcium 9.0 (8.4-10.2) mg/dL Phosphorus 2.50 D (2.5-4.5) mg/dL Pituitary panel 09/05/17 Range/Units Unknown Sodium 144 (137-145) mmol/L Potassium 3.5 L (3.6-5.0) mmol/L Chloride 106.4 (98-107) mmol/L Carbon Dioxide 26 (22-30) mmol/L BUN 20 (9-20) mg/dL Creatinine 0.6 L (0.8-1.5) mg/dL Glucose 108 H (75-100) mg/dL Calcium 9.0 (8.4-10.2) mg/dL Adrenal panel 09/05/17 Range/Units Unknown Sodium 144 (137-145) mmol/L Potassium 3.5 L (3.6-5.0) mmol/L Chloride 106.4 (98-107) mmol/L Carbon Dioxide 26 (22-30) mmol/L BUN 20 (9-20) mg/dL Creatinine 0.6 L (0.8-1.5) mg/dL Glucose 108 H (75-100) mg/dL Calcium 9.0 (8.4-10.2) mg/dL
[2017-09-06] MEDS: LOPRESSOR IV SCH ×4 (00:34→19:24)
[2017-09-06] MEDS: HALDOL IV PRN ×4 (03:17→18:45)
[2017-09-06] MEDS: ATIVAN IV PRN ×3 (03:17→18:45)
[2017-09-06] MEDS: ceFAZolin 2 GM in NACL 0.9% 100 ML IV SCH ×3 (05:54→23:48)
[2017-09-06] MEDS: ATROVENT IH SCH ×3 (07:30→19:24)
[2017-09-06 08:07] LABS: BUN/Creatinine Ratio 27; Blood Urea Nitrogen 19 mg/dL (9-20); Calcium 8.8 mg/dL (8.4-10.2); Hemolysis Index 1
--- NOTE | 2017-09-06 09:41 | Progress Note ---
Assessment and Plan Sepsis Acute SBO Acute on chronic diastolic heart failure Echo 04/2017 at [place] - LVEF 45-50% with moderate RV dysfunctioin Permanent atrial fibrillation on diltiazem and metoprolol for rate control. History of CAD s/p PCI to LAD in 2011 History of ascending aortic aneurysm measuring [address] 03/2016 Chronic DVT on xarelto as an outpatient Chronic renal failure Systemic Hypertension Non-compliance Continue Metoprolol and diltiazem. We will increase IV metoprolol to 5mg for optimal rate control. Subjective Date of service: 09/06/17 Principal diagnosis: afib with RVR and CHF excacerbation Interval history: Rapid afib on telemetry monitoring. Remains NPO status. Bilateral wrist restraints in place. Patient is yelling out , asking for water. Objective Vital Signs Temp Pulse Pulse Pulse Resp Resp Resp 09/06/17 09:05 98.9 F 120 H 20 09/06/17 07:45 111 H 111 H 24 24 09/06/17 07:30 108 H 108 H 28 H 28 H 09/06/17 05:03 97.6 F 122 H 24 09/06/17 01:08 97.5 F L 98 H 22 09/05/17 23:21 95 H 20 09/05/17 22:49 99.0 F 131 H 09/05/17 22:00 138 H 09/05/17 20:03 76 18 BP BP Pulse Ox 09/06/17 09:05 135/93 93 09/06/17 07:45 09/06/17 07:30 09/06/17 05:03 122/78 98 09/06/17 01:08 133/77 90 09/05/17 23:21 95 09/05/17 22:49 143/69 100 09/05/17 22:00 09/05/17 20:03 - Physical Examination General: No Apparent Distress HEENT: Positive: PERRL Cardiac: Positive: irregularly irregular Neuro: Positive: Weakness Abdomen: Positive: Unremarkable, Soft, Active Bowel Sounds, Other (DRESSED WOUND ) Skin: Positive: Clear Extremities: Absent: edema - Labs and Meds Comprehensive Metabolic Panel 09/05/17 09/06/17 Range/Units Unknown 05:49 Sodium 144 142 (137-145) mmol/L Potassium 3.5 L 3.8 (3.6-5.0) mmol/L Chloride 106.4 104.6 (98-107) mmol/L Carbon Dioxide 26 27 (22-30) mmol/L BUN 20 19 (9-20) mg/dL Creatinine 0.6 L 0.7 L (0.8-1.5) mg/dL Glucose 108 H 102 H (75-100) mg/dL Calcium 9.0 8.8 (8.4-10.2) mg/dL - Imaging and Cardiology EKG: image reviewed
[2017-09-06] MEDS: XARELTO PO SCH (10:00)
[2017-09-06] MEDS: SODIUM CHLORIDE FLUSH SYRINGE 10 ML IV SCH ×2 (10:00→23:44)
[2017-09-06] MEDS: PEPCID PO SCH ×2 (10:30→23:35)
--- NOTE | 2017-09-06 15:28 | Progress Note ---
Assessment and Plan Assessment and plan: Acute hypoxemic respiratory failure - Patient extubated on 08/29/17. Continue O2 to maintain sats. BiPAP as clinically indicated. Ileus - Cont TPN. NPO status. Surgery following Toxic metabolic encephalopathy - Resolving - Supportive care Acute on chronic diastolic heart failure - Echo 04/2017 at [place] - LVEF 45-50%, moderate RV dysfunction, RVSP 49 mm Hg and dilated IVC - Cont diuresis per Cardiology Permanent atrial fibrillation with RVR - Continue Cardizem and Xarelto. Cardiology following. Sepsis - ID following. Continue IV antibiotic. Complicated UTI with urinary retention. -08/24/17 SP cath was placed -08/27/17 CT abd showed free air intraperitoneal, SP cath, high density material in the urinary bladder, prominent prostate and bilateral renal calculi. -08/27/17 taken to the OR for cysto, evacuation of clots and merida placement by due to acute retention and exlap with evacuation of large amount of blood 2 L from abdominal cavity by Surgery. No bowel perforation History of CAD s/p PCI to LAD (2011) low salt diet and medical management History of ascending aortic aneurysm measuring [address] 03/2016 Chronic DVT on xarelto Acute renal failure Etiology likely secondary to Sepsis/ATN Resolving. Nephrology following. Systemic Hypertension Urinary retention - Follow a cardiac cath in place, draining clean urine - Urology following Bipolar disorder Psych is following Disposition - Consider LTAC placement. History Interval history: Patient was seen and evaluated this morning, agent was alert and oriented, but he was continuously moaning, per his daughter that is his baseline. Hospitalist Physical - Physical exam Narrative exam: Not in cardiopulmonary distress. NG tube in place. The patient appeared well nourished and normally developed. Vital signs as documented. Head exam is unremarkable. No scleral icterus . Neck is without jugular venous distension, thyromegaly, or carotid bruits. Lungs are clear to auscultation. Cardiac exam reveals regular rate and Rhythm. First and second heart sounds normal. No murmurs, rubs or gallops. Abdominal exam no distension. Extremities are nonedematous and both femoral and pedal pulses are normal. MANAGER FILE: Alert and oriented 3. No focal weakness. - Constitutional Vitals: Temp Pulse Resp BP Pulse Ox 98.9 F 118 H 24 143/80 94 09/06/17 12:26 09/06/17 13:40 09/06/17 13:40 09/06/17 12:26 09/06/17 12:26 General appearance: Present: no acute distress Results - Labs CBC & Chem 7: 09/05/17 Unknown 09/06/17 05:49 Labs: Laboratory Last Values WBC 11.5 K/mm3 (4.5-11.0) H 09/05/17 Unknown RBC 3.60 M/mm3 (3.65-5.03) L 09/05/17 Unknown Hgb 8.2 gm/dl (11.8-15.2) L 09/05/17 Unknown Hct 26.0 % (35.5-45.6) L 09/05/17 Unknown MCV 72 fl (84-94) L 09/05/17 Unknown MCH 23 pg (28-32) L 09/05/17 Unknown MCHC 32 % (32-34) 09/05/17 Unknown RDW 23.2 % (13.2-15.2) H 09/05/17 Unknown Plt Count 328 K/mm3 (140-440) 09/05/17 Unknown Lymph % (Auto) 7.7 % (13.4-35.0) L 09/05/17 Unknown [place] % (Auto) 4.1 % (0.0-7.3) 09/05/17 Unknown Eos % (Auto) 2.9 % (0.0-4.3) 09/05/17 Unknown Baso % (Auto) 0.3 % (0.0-1.8) 09/05/17 Unknown Lymph # 0.9 K/mm3 (1.2-5.4) L 09/05/17 Unknown [place] # 0.5 K/mm3 (0.0-0.8) 09/05/17 Unknown Eos # 0.3 K/mm3 (0.0-0.4) 09/05/17 Unknown Baso # 0.0 K/mm3 (0.0-0.1) 09/05/17 Unknown Add Manual Diff Complete 09/01/17 07:02 Total Counted 100 09/01/17 07:02 Seg Neutrophils % 85.0 % (40.0-70.0) H 09/05/17 Unknown Seg Neuts % (Manual) 93.0 % (40.0-70.0) H 09/01/17 07:02 Band Neutrophils % 0 % 09/01/17 07:02 Lymphocytes % (Manual) 3.0 % (13.4-35.0) L 09/01/17 07:02 Reactive Lymphs % (Man) 0 % 09/01/17 07:02 Monocytes % (Manual) 2.0 % (0.0-7.3) 09/01/17 07:02 Eosinophils % (Manual) 2.0 % (0.0-4.3) 09/01/17 07:02 Basophils % (Manual) 0 % (0.0-1.8) 09/01/17 07:02 Metamyelocytes % 0 % 09/01/17 07:02 Myelocytes % 0 % 09/01/17 07:02 Promyelocytes % 0 % 09/01/17 07:02 Blast Cells % 0 % 09/01/17 07:02 Nucleated RBC % Not Reportable 09/01/17 07:02 Seg Neutrophils # 9.8 K/mm3 (1.8-7.7) H 09/05/17 Unknown Seg Neutrophils # Man 12.6 K/mm3 (1.8-7.7) H 09/01/17 07:02 Band Neutrophils # 0.0 K/mm3 09/01/17 07:02 Lymphocytes # (Manual) 0.4 K/mm3 (1.2-5.4) L 09/01/17 07:02 Abs React Lymphs (Man) 0.0 K/mm3 09/01/17 07:02 Monocytes # (Manual) 0.3 K/mm3 (0.0-0.8) 09/01/17 07:02 Eosinophils # (Manual) 0.3 K/mm3 (0.0-0.4) 09/01/17 07:02 Basophils # (Manual) 0.0 K/mm3 (0.0-0.1) 09/01/17 07:02 Metamyelocytes # 0.0 K/mm3 09/01/17 07:02 Myelocytes # 0.0 K/mm3 09/01/17 07:02 Promyelocytes # 0.0 K/mm3 09/01/17 07:02 Blast Cells # 0.0 K/mm3 09/01/17 07:02 WBC Morphology Not Reportable 09/01/17 07:02 Hypersegmented Neuts Not Reportable 09/01/17 07:02 Hyposegmented Neuts Not Reportable 09/01/17 07:02 Hypogranular Neuts Not Reportable 09/01/17 07:02 Smudge Cells Not Reportable 09/01/17 07:02 Toxic Granulation Not Reportable 09/01/17 07:02 Toxic Vacuolation Not Reportable 09/01/17 07:02 Dohle Bodies Not Reportable 09/01/17 07:02 Pelger-Huet Anomaly Not Reportable 09/01/17 07:02 Cande Rods Not Reportable 09/01/17 07:02 Platelet Estimate Cons 09/01/17 07:02 Clumped Platelets Not Reportable 09/01/17 07:02 Plt Clumps, EDTA Not Reportable 09/01/17 07:02 Large Platelets Not Reportable 09/01/17 07:02 Giant Platelets Not Reportable 09/01/17 07:02 Platelet Satelliting Not Reportable 09/01/17 07:02 Plt Morphology Comment Not Reportable 09/01/17 07:02 RBC Morphology Not Reportable 09/01/17 07:02 Dimorphic RBCs Not Reportable 09/01/17 07:02 Polychromasia Not Reportable 09/01/17 07:02 Hypochromasia 2+ 09/01/17 07:02 Poikilocytosis 2+ 09/01/17 07:02 Anisocytosis 2+ 09/01/17 07:02 Microcytosis Not Reportable 09/01/17 07:02 Macrocytosis Not Reportable 09/01/17 07:02 Spherocytes Not Reportable 09/01/17 07:02 Pappenheimer Bodies Not Reportable 09/01/17 07:02 Sickle Cells Not Reportable 09/01/17 07:02 Target Cells Few 09/01/17 07:02 Tear Drop Cells Not Reportable 09/01/17 07:02 Ovalocytes Not Reportable 09/01/17 07:02 Helmet Cells Not Reportable 09/01/17 07:02 [place] Bodies Not Reportable 09/01/17 07:02 [place] Rings Not Reportable 09/01/17 07:02 [place] Cells 1+ 09/01/17 07:02 Bite Cells Not Reportable 09/01/17 07:02 Crenated Cell Not Reportable 09/01/17 07:02 Elliptocytes Not Reportable 09/01/17 07:02 Acanthocytes (Spur) 1+ 09/01/17 07:02 Rouleaux Not Reportable 09/01/17 07:02 Hemoglobin C Crystals Not Reportable 09/01/17 07:02 Schistocytes Few 09/01/17 07:02 Malaria parasites Not Reportable 09/01/17 07:02 Jonny Bodies Not Reportable 09/01/17 07:02 Hem Pathologist Commnt No 09/01/17 07:02 PT 22.7 Sec. (12.2-14.9) H 09/02/17 17:00 INR 1.87 (0.87-1.13) H 09/02/17 17:00 APTT 37.7 Sec. (24.2-36.6) H 09/02/17 17:00 POC ABG pH 7.435 (7.35-7.45) 08/29/17 10:58 POC ABG pCO2 34.8 (35-45) L 08/29/17 10:58 POC ABG pO2 93 (80-105) 08/29/17 10:58 POC ABG HCO3 23.4 08/29/17 10:58 POC ABG Total CO2 24 08/29/17 10:58 POC ABG O2 Sat 98 08/29/17 10:58 POC ABG Base Excess -1 08/29/17 10:58 FiO2 28 % 08/29/17 10:58 Sodium 142 mmol/L (137-145) 09/06/17 05:49 Potassium 3.8 mmol/L (3.6-5.0) 09/06/17 05:49 Chloride 104.6 mmol/L (98-107) 09/06/17 05:49 Carbon Dioxide 27 mmol/L (22-30) 09/06/17 05:49 Anion Gap 14 mmol/L 09/06/17 05:49 BUN 19 mg/dL (9-20) 09/06/17 05:49 Creatinine 0.7 mg/dL (0.8-1.5) L 09/06/17 05:49 Estimated GFR > 60 ml/min 09/06/17 05:49 BUN/Creatinine Ratio 27 % 09/06/17 05:49 Glucose 102 mg/dL (75-100) H 09/06/17 05:49 POC Glucose 118 (70-105) H 09/06/17 07:38 Lactic Acid 1.80 mmol/L (0.7-2.0) 08/28/17 Unknown Calcium 8.8 mg/dL (8.4-10.2) 09/06/17 05:49 Phosphorus 2.50 mg/dL (2.5-4.5) 09/06/17 05:49 Magnesium 2.10 mg/dL (1.7-2.3) 09/06/17 05:49 Total Bilirubin 1.30 mg/dL (0.1-1.2) H 09/02/17 17:00 AST 88 units/L (5-40) H 09/02/17 17:00 ALT 69 units/L (7-56) H 09/02/17 17:00 Alkaline Phosphatase 91 units/L (35-129) 09/02/17 17:00 Total Creatine Kinase 155 units/L (55-170) 08/23/17 10:56 CK-MB (CK-2) 4.4 ng/mL (0.0-4.0) H 08/23/17 10:56 CK-MB (CK-2) Rel Index 2.8 (0-4) 08/23/17 10:56 Troponin T 0.297 ng/mL (0.00-0.029) H* 09/02/17 17:00 C-Reactive Protein 38.40 mg/dL (0.00-1.30) H 08/29/17 20:45 NT-Pro-B Natriuret Pep 67550 pg/mL (0-900) H 08/23/17 02:54 Total Protein 6.0 g/dL (6.3-8.2) L 09/02/17 17:00 Albumin 2.3 g/dL (3.9-5) L 09/02/17 17:00 Albumin/Globulin Ratio 0.6 % 09/02/17 17:00 Triglycerides 69 mg/dL (2-149) 08/23/17 02:54 Cholesterol 125 mg/dL (50-199) 08/23/17 02:54 LDL Cholesterol Direct 77 mg/dL (50-130) 08/23/17 02:54 HDL Cholesterol 36 mg/dL (40-59) L 08/23/17 02:54 Cholesterol/HDL Ratio 3.47 % 08/23/17 02:54 Prostate Specific Ag 96.82 ng/mL (0.00-4.00) H 08/30/17 18:11 Urine Color Yellow (Yellow) 08/28/17 21:00 Urine Turbidity Clear (Clear) 08/28/17 21:00 Urine pH 5.0 (5.0-7.0) 08/28/17 21:00 Ur Specific Datil 1.005 (1.003-1.030) 08/28/17 21:00 Urine Protein <15 mg/dl mg/dL (Negative) 08/28/17 21:00 Urine Glucose (UA) Neg mg/dL (Negative) 08/28/17 21:00 Urine Ketones Neg mg/dL (Negative) 08/28/17 21:00 Urine Blood Lg (Negative) 08/28/17 21:00 Urine Nitrite Neg (Negative) 08/28/17 21:00 Urine Bilirubin Neg (Negative) 08/28/17 21:00 Urine Urobilinogen < 2.0 mg/dL (<2.0) 08/28/17 21:00 Ur Leukocyte Esterase Lg (Negative) 08/28/17 21:00 Urine WBC (Auto) 43.0 /HPF (0.0-6.0) H 08/28/17 21:00 Urine RBC (Auto) > 182.0 /HPF (0.0-6.0) 08/28/17 21:00 U Epithel Cells (Auto) < 1.0 /HPF (0-13.0) 08/28/17 21:00 Uric Acid Crystals 2+ 08/28/17 21:00 Urine Mucus Few /HPF 08/28/17 21:00 Blood Type B POSITIVE 08/27/17 20:03 Antibody Screen Negative 08/27/17 20:03 Crossmatch See Detail 08/27/17 20:03
--- NOTE | 2017-09-06 18:51 | XRay Report ---
FINAL REPORT PROCEDURE: XR ABDOMEN 1V AP TECHNIQUE: AP portable supine view of the abdomen HISTORY: tube placement COMPARISON: 09/03/2017 FINDINGS: There is a tube coiled in the lower thorax, which may be within the distal esophagus. There are dilated small bowel loops, compatible with obstruction or ileus. There is a catheter coiled overlying the pelvis. IVC filter is present. IMPRESSION: There is a tube projecting over the lower thorax, which may be within the distal esophagus
[2017-09-06] MEDS ORDERED: INTRALIPID 20% 250 ML IV SCH (20:00)
[2017-09-06] MEDS ORDERED: TPN ADULT 2,400 ML IV SCH (20:00)
--- NOTE | 2017-09-06 23:36 | XRay Report ---
FINAL REPORT PROCEDURE: XR ABD SERIES W CXR 1V TECHNIQUE: Abdominal series complete, including supine and upright AP views of the abdomen and frontal chest. HISTORY: Ileus. COMPARISON: Radiograph dated 09/06/2017, 1603. FINDINGS: Heart: Globular enlargement of the cardiac silhouette. Mediastinum/Vessels: Right paratracheal prominence. Left hilar prominence. Lungs/Pleural space: Mild bibasilar opacities. Bowel gas pattern: Moderately and diffusely air-filled distended loops of large and small bowel. Oral contrast in the rectum. Masses or calcifications: Densities overlie the left upper quadrant, similar to prior exam. The largest measures 4.4 mm. Bony structures: Right 5th-7th mid rib fractures. Other: No free intraperitoneal air. Enteric tube tip overlies location of the proximal stomach. Dialysis catheter in the pelvis. PICC line tip in the SVC. IVC filter. IMPRESSION: Moderately and diffusely air-filled distended loops of large and small bowel. Oral contrast in the rectum. Consider ileus, cannot exclude partial small bowel obstruction. Enteric tube overlies expected location of the proximal stomach. Globular enlargement of the cardiac silhouette, consider cardiomegaly or pericardial effusion. Right paratracheal prominence and left hilar prominence, probably related to patient rotation. Mild bibasilar opacities. Consider atelectasis or pneumonitis. Densities overlie the left upper quadrant, consider renal calculi.
[2017-09-07] MEDS: LOPRESSOR IV SCH ×4 (00:02→17:42)
[2017-09-07] MEDS: CARDIZEM/D5W 100MG/100ML 100 MG/100 ML BAG IV SCH ×3 (01:13→22:02)
[2017-09-07] MEDS: PEPCID PO SCH ×2 (04:00→18:50)
[2017-09-07] MEDS: HALDOL IV PRN ×2 (04:47→19:00)
[2017-09-07 06:23] LABS: Basophils # (Auto) 0.1 K/mm3 (0.0-0.1); Basophils % (Auto) 0.8 % (0.0-1.8); Eosinophils # (Auto) 0.3 K/mm3 (0.0-0.4); Eosinophils % (Auto) 2.9 % (0.0-4.3); Hematocrit 25.1 % (35.5-45.6); Hemoglobin 8.2 gm/dl (11.8-15.2); Lymphocytes # (Auto) 0.7 K/mm3 (1.2-5.4); Lymphocytes % (Auto) 6.3 % (13.4-35.0); Mean Corpuscular HGB Conc 33 % (32-34); Mean Corpuscular Volume 73 fl (84-94); Monocytes # (Auto) 0.4 K/mm3 (0.0-0.8); Monocytes % (Auto) 3.6 % (0.0-7.3); Red Blood Count 3.45 M/mm3 (3.65-5.03)
[2017-09-07 06:53] LABS: Mean Corpuscular Hemoglobin 24 pg (28-32); Red Cell Distribution Width 23.2 % (13.2-15.2)
[2017-09-07 07:00] LABS: BUN/Creatinine Ratio 26; Blood Urea Nitrogen 21 mg/dL (9-20); Calcium 8.4 mg/dL (8.4-10.2); Hemolysis Index 1
[2017-09-07] MEDS: ceFAZolin 2 GM in NACL 0.9% 100 ML IV SCH ×3 (07:11→22:59)
[2017-09-07 07:22] LABS: Platelet Count 194 K/mm3 (140-440)
[2017-09-07] MEDS: ATIVAN IV PRN ×2 (08:44→22:58)
[2017-09-07] MEDS: ATROVENT IH SCH ×3 (08:55→21:22)
[2017-09-07] MEDS: SODIUM CHLORIDE FLUSH SYRINGE 10 ML IV SCH ×2 (10:00→22:59)
--- NOTE | 2017-09-07 11:07 | Progress Note ---
Assessment and Plan Sepsis Acute SBO/Ileus Acute on chronic diastolic heart failure Echo 04/2017 at [place] - LVEF 45-50% with moderate RV dysfunctioin Permanent atrial fibrillation on diltiazem and metoprolol for rate control. History of CAD s/p PCI to LAD in 2011 History of ascending aortic aneurysm measuring [address] 03/2016 Chronic DVT on xarelto as an outpatient Chronic renal failure Systemic Hypertension Non-compliance Continue metoprolol and diltiazem for optimal rate control of atrial fibrillation. Subjective Date of service: 09/07/17 Principal diagnosis: afib with RVR and CHF excacerbation Interval history: No interval changes. Objective Vital Signs Temp Pulse Pulse Pulse Pulse Resp Resp 09/07/17 09:07 110 H 110 H 20 09/07/17 08:54 109 H 109 H 20 09/07/17 07:10 100 H 09/07/17 04:58 98.3 F 22 09/07/17 00:18 97.3 F L 100 H 22 09/07/17 00:02 118 H 09/06/17 22:50 116 H 24 09/06/17 22:00 110 H 19 09/06/17 20:32 97.9 F 118 H 24 09/06/17 19:40 114 H 22 09/06/17 19:25 112 H 22 09/06/17 19:09 119 H 09/06/17 16:36 98.7 F 20 09/06/17 13:40 118 H 09/06/17 13:32 118 H 09/06/17 12:26 98.9 F 139 H 20 Resp Resp BP Pulse Ox 09/07/17 09:07 20 09/07/17 08:54 20 09/07/17 07:10 142/84 09/07/17 04:58 142/84 09/07/17 00:18 109/64 96 09/07/17 00:02 117/72 09/06/17 22:50 97 09/06/17 22:00 19 09/06/17 20:32 117/72 97 09/06/17 19:40 09/06/17 19:25 09/06/17 19:09 09/06/17 16:36 139/79 09/06/17 13:40 24 09/06/17 13:32 24 09/06/17 12:26 143/80 94 - Physical Examination General: No Apparent Distress HEENT: Positive: PERRL Cardiac: Positive: irregularly irregular - Labs and Meds CBC 09/07/17 Range/Units 05:11 WBC 10.9 (4.5-11.0) K/mm3 RBC 3.45 L (3.65-5.03) M/mm3 Hgb 8.2 L (11.8-15.2) gm/dl Hct 25.1 L (35.5-45.6) % Plt Count 194 (140-440) K/mm3 Lymph # 0.7 L (1.2-5.4) K/mm3 [place] # 0.4 (0.0-0.8) K/mm3 Eos # 0.3 (0.0-0.4) K/mm3 Baso # 0.1 (0.0-0.1) K/mm3 Comprehensive Metabolic Panel 09/07/17 Range/Units 05:11 Sodium 141 (137-145) mmol/L Potassium 4.1 (3.6-5.0) mmol/L Chloride 105.4 (98-107) mmol/L Carbon Dioxide 21 L (22-30) mmol/L BUN 21 H (9-20) mg/dL Creatinine 0.8 (0.8-1.5) mg/dL Glucose 106 H (75-100) mg/dL Calcium 8.4 (8.4-10.2) mg/dL
--- NOTE | 2017-09-07 13:50 | Progress Note ---
Assessment and Plan Assessment and plan: Acute hypoxemic respiratory failure - Patient extubated on 08/29/17. Continue O2 to maintain sats. BiPAP as clinically indicated. Ileus - Cont TPN. NPO status. Surgery following Toxic metabolic encephalopathy - Resolving - Supportive care - patient was moaning continuously Acute on chronic diastolic heart failure - Echo 04/2017 at [place] - LVEF 45-50%, moderate RV dysfunction, RVSP 49 mm Hg and dilated IVC - Cardiology following Permanent atrial fibrillation with RVR - Continue Cardizem and metoprolol - Cardiology following. Sepsis - ID following - resolving Complicated UTI with urinary retention. -08/24/17 SP cath was placed -08/27/17 CT abd showed free air intraperitoneal, SP cath, high density material in the urinary bladder, prominent prostate and bilateral renal calculi. -08/27/17 taken to the OR for cysto, evacuation of clots and merida placement by due to acute retention and exlap with evacuation of large amount of blood 2 L from abdominal cavity by Surgery. No bowel perforation History of CAD s/p PCI to LAD (2011) low salt diet and medical management History of ascending aortic aneurysm measuring [address] 03/2016 Chronic DVT - Was on xarelto as an O/P Acute renal failure Etiology likely secondary to Sepsis/ATN Resolving. Nephrology following. Systemic Hypertension Urinary retention - Follow a cardiac cath in place, draining clean urine - Urology following Bipolar disorder Psych is following Disposition - Pending LTAC placement. History Interval history: Patient was seen and evaluated this morning, Patient was alert and oriented, but he was continuously moaning, per his daughter that is his baseline. Hospitalist Physical - Physical exam Narrative exam: Not in cardiopulmonary distress. NG tube in place. The patient appeared well nourished and normally developed. Vital signs as documented. Head exam is unremarkable. No scleral icterus . Neck is without jugular venous distension, thyromegaly, or carotid bruits. Lungs are clear to auscultation. Cardiac exam reveals regular rate and Rhythm. First and second heart sounds normal. No murmurs, rubs or gallops. Abdominal exam soft and nontender, hypoactive bowel sounds. Extremities are nonedematous and both femoral and pedal pulses are normal. 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 No focal weakness. - Constitutional Vitals: Temp Pulse Resp BP Pulse Ox 98.3 F 110 H 20 142/84 96 09/07/17 04:58 09/07/17 09:07 09/07/17 09:07 09/07/17 07:10 09/07/17 00:18 General appearance: Present: no acute distress Results - Labs CBC & Chem 7: 09/07/17 05:11 09/07/17 05:11 Labs: Laboratory Last Values WBC 10.9 K/mm3 (4.5-11.0) 09/07/17 05:11 RBC 3.45 M/mm3 (3.65-5.03) L 09/07/17 05:11 Hgb 8.2 gm/dl (11.8-15.2) L 09/07/17 05:11 Hct 25.1 % (35.5-45.6) L 09/07/17 05:11 MCV 73 fl (84-94) L 09/07/17 05:11 MCH 24 pg (28-32) L 09/07/17 05:11 MCHC 33 % (32-34) 09/07/17 05:11 RDW 23.2 % (13.2-15.2) H 09/07/17 05:11 Plt Count 194 K/mm3 (140-440) 09/07/17 05:11 Lymph % (Auto) 6.3 % (13.4-35.0) L 09/07/17 05:11 [place] % (Auto) 3.6 % (0.0-7.3) 09/07/17 05:11 Eos % (Auto) 2.9 % (0.0-4.3) 09/07/17 05:11 Baso % (Auto) 0.8 % (0.0-1.8) 09/07/17 05:11 Lymph # 0.7 K/mm3 (1.2-5.4) L 09/07/17 05:11 [place] # 0.4 K/mm3 (0.0-0.8) 09/07/17 05:11 Eos # 0.3 K/mm3 (0.0-0.4) 09/07/17 05:11 Baso # 0.1 K/mm3 (0.0-0.1) 09/07/17 05:11 Add Manual Diff Complete 09/01/17 07:02 Total Counted 100 09/01/17 07:02 Seg Neutrophils % 86.4 % (40.0-70.0) H 09/07/17 05:11 Seg Neuts % (Manual) 93.0 % (40.0-70.0) H 09/01/17 07:02 Band Neutrophils % 0 % 09/01/17 07:02 Lymphocytes % (Manual) 3.0 % (13.4-35.0) L 09/01/17 07:02 Reactive Lymphs % (Man) 0 % 09/01/17 07:02 Monocytes % (Manual) 2.0 % (0.0-7.3) 09/01/17 07:02 Eosinophils % (Manual) 2.0 % (0.0-4.3) 09/01/17 07:02 Basophils % (Manual) 0 % (0.0-1.8) 09/01/17 07:02 Metamyelocytes % 0 % 09/01/17 07:02 Myelocytes % 0 % 09/01/17 07:02 Promyelocytes % 0 % 09/01/17 07:02 Blast Cells % 0 % 09/01/17 07:02 Nucleated RBC % Not Reportable 09/01/17 07:02 Seg Neutrophils # 9.5 K/mm3 (1.8-7.7) H 09/07/17 05:11 Seg Neutrophils # Man 12.6 K/mm3 (1.8-7.7) H 09/01/17 07:02 Band Neutrophils # 0.0 K/mm3 09/01/17 07:02 Lymphocytes # (Manual) 0.4 K/mm3 (1.2-5.4) L 09/01/17 07:02 Abs React Lymphs (Man) 0.0 K/mm3 09/01/17 07:02 Monocytes # (Manual) 0.3 K/mm3 (0.0-0.8) 09/01/17 07:02 Eosinophils # (Manual) 0.3 K/mm3 (0.0-0.4) 09/01/17 07:02 Basophils # (Manual) 0.0 K/mm3 (0.0-0.1) 09/01/17 07:02 Metamyelocytes # 0.0 K/mm3 09/01/17 07:02 Myelocytes # 0.0 K/mm3 09/01/17 07:02 Promyelocytes # 0.0 K/mm3 09/01/17 07:02 Blast Cells # 0.0 K/mm3 09/01/17 07:02 WBC Morphology Not Reportable 09/01/17 07:02 Hypersegmented Neuts Not Reportable 09/01/17 07:02 Hyposegmented Neuts Not Reportable 09/01/17 07:02 Hypogranular Neuts Not Reportable 09/01/17 07:02 Smudge Cells Not Reportable 09/01/17 07:02 Toxic Granulation Not Reportable 09/01/17 07:02 Toxic Vacuolation Not Reportable 09/01/17 07:02 Dohle Bodies Not Reportable 09/01/17 07:02 Pelger-Huet Anomaly Not Reportable 09/01/17 07:02 Cande Rods Not Reportable 09/01/17 07:02 Platelet Estimate Cons 09/01/17 07:02 Clumped Platelets Not Reportable 09/01/17 07:02 Plt Clumps, EDTA Not Reportable 09/01/17 07:02 Large Platelets Not Reportable 09/01/17 07:02 Giant Platelets Not Reportable 09/01/17 07:02 Platelet Satelliting Not Reportable 09/01/17 07:02 Plt Morphology Comment Not Reportable 09/01/17 07:02 RBC Morphology Not Reportable 09/01/17 07:02 Dimorphic RBCs Not Reportable 09/01/17 07:02 Polychromasia Not Reportable 09/01/17 07:02 Hypochromasia 2+ 09/01/17 07:02 Poikilocytosis 2+ 09/01/17 07:02 Anisocytosis 2+ 09/01/17 07:02 Microcytosis Not Reportable 09/01/17 07:02 Macrocytosis Not Reportable 09/01/17 07:02 Spherocytes Not Reportable 09/01/17 07:02 Pappenheimer Bodies Not Reportable 09/01/17 07:02 Sickle Cells Not Reportable 09/01/17 07:02 Target Cells Few 09/01/17 07:02 Tear Drop Cells Not Reportable 09/01/17 07:02 Ovalocytes Not Reportable 09/01/17 07:02 Helmet Cells Not Reportable 09/01/17 07:02 Mor[place] Bodies Not Reportable 09/01/17 07:02 [place] Rings Not Reportable 09/01/17 07:02 [place] Cells 1+ 09/01/17 07:02 Bite Cells Not Reportable 09/01/17 07:02 Crenated Cell Not Reportable 09/01/17 07:02 Elliptocytes Not Reportable 09/01/17 07:02 Acanthocytes (Spur) 1+ 09/01/17 07:02 Rouleaux Not Reportable 09/01/17 07:02 Hemoglobin C Crystals Not Reportable 09/01/17 07:02 Schistocytes Few 09/01/17 07:02 Malaria parasites Not Reportable 09/01/17 07:02 Jonny Bodies Not Reportable 09/01/17 07:02 Hem Pathologist Commnt No 09/01/17 07:02 PT 22.7 Sec. (12.2-14.9) H 09/02/17 17:00 INR 1.87 (0.87-1.13) H 09/02/17 17:00 APTT 37.7 Sec. (24.2-36.6) H 09/02/17 17:00 POC ABG pH 7.435 (7.35-7.45) 08/29/17 10:58 POC ABG pCO2 34.8 (35-45) L 08/29/17 10:58 POC ABG pO2 93 (80-105) 08/29/17 10:58 POC ABG HCO3 23.4 08/29/17 10:58 POC ABG Total CO2 24 08/29/17 10:58 POC ABG O2 Sat 98 08/29/17 10:58 POC ABG Base Excess -1 08/29/17 10:58 FiO2 28 % 08/29/17 10:58 Sodium 141 mmol/L (137-145) 09/07/17 05:11 Potassium 4.1 mmol/L (3.6-5.0) 09/07/17 05:11 Chloride 105.4 mmol/L (98-107) 09/07/17 05:11 Carbon Dioxide 21 mmol/L (22-30) L 09/07/17 05:11 Anion Gap 19 mmol/L 09/07/17 05:11 BUN 21 mg/dL (9-20) H 09/07/17 05:11 Creatinine 0.8 mg/dL (0.8-1.5) 09/07/17 05:11 Estimated GFR > 60 ml/min 09/07/17 05:11 BUN/Creatinine Ratio 26 % 09/07/17 05:11 Glucose 106 mg/dL (75-100) H 09/07/17 05:11 POC Glucose 108 (70-105) H 09/07/17 12:38 Lactic Acid 1.80 mmol/L (0.7-2.0) 08/28/17 Unknown Calcium 8.4 mg/dL (8.4-10.2) 09/07/17 05:11 Phosphorus 2.70 mg/dL (2.5-4.5) 09/07/17 05:11 Magnesium 2.10 mg/dL (1.7-2.3) 09/07/17 05:11 Total Bilirubin 1.30 mg/dL (0.1-1.2) H 09/02/17 17:00 AST 88 units/L (5-40) H 09/02/17 17:00 ALT 69 units/L (7-56) H 09/02/17 17:00 Alkaline Phosphatase 91 units/L (35-129) 09/02/17 17:00 Total Creatine Kinase 155 units/L (55-170) 08/23/17 10:56 CK-MB (CK-2) 4.4 ng/mL (0.0-4.0) H 08/23/17 10:56 CK-MB (CK-2) Rel Index 2.8 (0-4) 08/23/17 10:56 Troponin T 0.297 ng/mL (0.00-0.029) H* 09/02/17 17:00 C-Reactive Protein 38.40 mg/dL (0.00-1.30) H 08/29/17 20:45 NT-Pro-B Natriuret Pep 14938 pg/mL (0-900) H 08/23/17 02:54 Total Protein 6.0 g/dL (6.3-8.2) L 09/02/17 17:00 Albumin 2.3 g/dL (3.9-5) L 09/02/17 17:00 Albumin/Globulin Ratio 0.6 % 09/02/17 17:00 Triglycerides 69 mg/dL (2-149) 07/04/18 02:54 Cholesterol 125 mg/dL (50-199) 08/23/17 02:54 LDL Cholesterol Direct 77 mg/dL (50-130) 08/23/17 02:54 HDL Cholesterol 36 mg/dL (40-59) L 08/23/17 02:54 Cholesterol/HDL Ratio 3.47 % 08/23/17 02:54 Prostate Specific Ag 96.82 ng/mL (0.00-4.00) H 08/30/17 18:11 Urine Color Yellow (Yellow) 08/28/17 21:00 Urine Turbidity Clear (Clear) 08/28/17 21:00 Urine pH 5.0 (5.0-7.0) 08/28/17 21:00 Ur Specific [place] 1.005 (1.003-1.030) 08/28/17 21:00 Urine Protein <15 mg/dl mg/dL (Negative) 08/28/17 21:00 Urine Glucose (UA) Neg mg/dL (Negative) 08/28/17 21:00 Urine Ketones Neg mg/dL (Negative) 08/28/17 21:00 Urine Blood Lg (Negative) 08/28/17 21:00 Urine Nitrite Neg (Negative) 08/28/17 21:00 Urine Bilirubin Neg (Negative) 08/28/17 21:00 Urine Urobilinogen < 2.0 mg/dL (<2.0) 08/28/17 21:00 Ur Leukocyte Esterase Lg (Negative) 08/28/17 21:00 Urine WBC (Auto) 43.0 /HPF (0.0-6.0) H 08/28/17 21:00 Urine RBC (Auto) > 182.0 /HPF (0.0-6.0) 08/28/17 21:00 U Epithel Cells (Auto) < 1.0 /HPF (0-13.0) 08/28/17 21:00 Uric Acid Crystals 2+ 08/28/17 21:00 Urine Mucus Few /HPF 08/28/17 21:00 Blood Type B POSITIVE 08/27/17 20:03 Antibody Screen Negative 08/27/17 20:03 Crossmatch See Detail 08/27/17 20:03
--- NOTE | 2017-09-07 14:11 | XRay Report ---
AP ABDOMEN: HISTORY: Small bowel obstruction. Mildly dilated loops of small bowel in the upper abdomen are unchanged over multiple previous exams. There is paucity of gas in the colon. An incomplete small bowel obstruction cannot be excluded. An IVC filter is in place at the level of L3-4. A surgical drain is identified in the pelvis. The lung bases are excluded from the [id number]. The nasogastric tube is not visualized. IMPRESSION: No change.
--- NOTE | 2017-09-07 15:49 | Progress Note ---
Subjective Narrative: no change in the mental sttus , confused , abd soft benign ,on TPN , Pt pulled it , will keep out , will check with KUB in AM , lytes ok . Objective Vital Signs - 12hr 09/07/17 09/07/17 09/07/17 04:58 07:10 08:54 Temperature 98.3 F Pulse Rate 100 H Pulse Rate [ 109 H Anterior Bilateral Throughout] Pulse Rate [ 109 H Anterior Upper Lobe] Respiratory 22 Rate Respiratory 20 Rate [Anterior Bilateral Throughout] Respiratory 20 Rate [Anterior Upper Lobe] Blood Pressure 142/84 142/84 09/07/17 09/07/17 09/07/17 09:07 13:55 14:01 Temperature Pulse Rate Pulse Rate [ 110 H 118 H 118 H Anterior Bilateral Throughout] Pulse Rate [ 110 H 118 H 118 H Anterior Upper Lobe] Respiratory Rate Respiratory 20 20 20 Rate [Anterior Bilateral Throughout] Respiratory 20 20 20 Rate [Anterior Upper Lobe] Blood Pressure - Labs 09/07/17 05:11 09/07/17 05:11 Diabetes panel 09/07/17 Range/Units 05:11 Sodium 141 (137-145) mmol/L Potassium 4.1 (3.6-5.0) mmol/L Chloride 105.4 (98-107) mmol/L Carbon Dioxide 21 L (22-30) mmol/L BUN 21 H (9-20) mg/dL Creatinine 0.8 (0.8-1.5) mg/dL Glucose 106 H (75-100) mg/dL Calcium 8.4 (8.4-10.2) mg/dL Calcium panel 09/07/17 Range/Units 05:11 Calcium 8.4 (8.4-10.2) mg/dL Phosphorus 2.70 (2.5-4.5) mg/dL Pituitary panel 09/07/17 Range/Units 05:11 Sodium 141 (137-145) mmol/L Potassium 4.1 (3.6-5.0) mmol/L Chloride 105.4 (98-107) mmol/L Carbon Dioxide 21 L (22-30) mmol/L BUN 21 H (9-20) mg/dL Creatinine 0.8 (0.8-1.5) mg/dL Glucose 106 H (75-100) mg/dL Calcium 8.4 (8.4-10.2) mg/dL Adrenal panel 09/07/17 Range/Units 05:11 Sodium 141 (137-145) mmol/L Potassium 4.1 (3.6-5.0) mmol/L Chloride 105.4 (98-107) mmol/L Carbon Dioxide 21 L (22-30) mmol/L BUN 21 H (9-20) mg/dL Creatinine 0.8 (0.8-1.5) mg/dL Glucose 106 H (75-100) mg/dL Calcium 8.4 (8.4-10.2) mg/dL
--- NOTE | 2017-09-07 18:37 | XRay Report ---
FINAL REPORT PROCEDURE: XR ABDOMEN 1V AP TECHNIQUE: AP supine portable radiograph of the abdomen was obtained at 09/07/2017 20:58 (GMT) . HISTORY: Tube placement. COMPARISON: Radiograph dated 09/06/2017. FINDINGS: Bowel gas pattern: Moderately distended loops of bowel throughout the abdomen. Gaseous distension of the stomach. Masses or calcifications: Densities about left upper quadrant, largest measuring approximately 4.5 mm. Pelvic phleboliths. Bony structures: Mild degenerative changes of the spine. Other: Enteric tube overlies expected location of the stomach. Dialysis catheter in the pelvis. IMPRESSION: Enteric tube overlies expected location of the stomach. Moderately distended loops of bowel in the abdomen. Gaseous distension of the stomach. Consider ileus or obstruction. Possible renal calculi.
[2017-09-07] MEDS: XARELTO PO SCH (18:49)
[2017-09-07] MEDS ORDERED: TPN ADULT 2,400 ML IV SCH (20:00)
[2017-09-07] MEDS: PEPCID IV SCH (22:59)
[2017-09-08] MEDS: LOPRESSOR IV SCH ×4 (02:29→18:40)
[2017-09-08 05:57] LABS: BUN/Creatinine Ratio 26; Blood Urea Nitrogen 23 mg/dL (9-20); Calcium 8.7 mg/dL (8.4-10.2); Hemolysis Index 0
[2017-09-08] MEDS: ATROVENT IH SCH ×3 (08:41→20:51)
--- NOTE | 2017-09-08 11:28 | XRay Report ---
ABDOMEN, 2 views: History: Possible ileus. The feeding tube has been removed. IVC filter and surgical drain in the pelvis are unchanged. Decreased gaseous distention of small bowel loops is demonstrated on today's exam. Gas is identified in the distal colon on today's exam as well. The overall pattern is more suggestive of an ileus on this exam. IMPRESSION: Mild improvement in small bowel dilatation as described. Probable improving ileus.
--- NOTE | 2017-09-08 12:29 | Progress Note ---
Subjective Narrative: confused , abd distended KUB with ? ileus , will obtain SBSeries Objective Vital Signs - 12hr 09/08/17 09/08/17 09/08/17 01:33 02:29 04:52 Temperature 97.5 F L 97.5 F L Pulse Rate 141 H 131 H Respiratory 24 24 Rate Blood Pressure 182/102 182/102 143/78 O2 Sat by Pulse 89 Oximetry 09/08/17 09/08/17 09/08/17 05:36 06:50 07:44 Temperature 98.6 F Pulse Rate 106 H 123 H 98 H Respiratory 24 22 Rate Blood Pressure 143/78 156/92 O2 Sat by Pulse 100 100 Oximetry 09/08/17 08:40 Temperature Pulse Rate Respiratory Rate Blood Pressure O2 Sat by Pulse 100 Oximetry - Labs 09/07/17 05:11 09/08/17 04:48 Diabetes panel 09/08/17 Range/Units 04:48 Sodium 142 (137-145) mmol/L Potassium 4.3 (3.6-5.0) mmol/L Chloride 107.4 H (98-107) mmol/L Carbon Dioxide 20 L (22-30) mmol/L BUN 23 H (9-20) mg/dL Creatinine 0.9 (0.8-1.5) mg/dL Glucose 127 H (75-100) mg/dL Calcium 8.7 (8.4-10.2) mg/dL Calcium panel 09/08/17 Range/Units 04:48 Calcium 8.7 (8.4-10.2) mg/dL Phosphorus 3.70 D (2.5-4.5) mg/dL Pituitary panel 09/08/17 Range/Units 04:48 Sodium 142 (137-145) mmol/L Potassium 4.3 (3.6-5.0) mmol/L Chloride 107.4 H (98-107) mmol/L Carbon Dioxide 20 L (22-30) mmol/L BUN 23 H (9-20) mg/dL Creatinine 0.9 (0.8-1.5) mg/dL Glucose 127 H (75-100) mg/dL Calcium 8.7 (8.4-10.2) mg/dL Adrenal panel 09/08/17 Range/Units 04:48 Sodium 142 (137-145) mmol/L Potassium 4.3 (3.6-5.0) mmol/L Chloride 107.4 H (98-107) mmol/L Carbon Dioxide 20 L (22-30) mmol/L BUN 23 H (9-20) mg/dL Creatinine 0.9 (0.8-1.5) mg/dL Glucose 127 H (75-100) mg/dL Calcium 8.7 (8.4-10.2) mg/dL
--- NOTE | 2017-09-08 12:37 | Progress Note ---
Assessment and Plan Sepsis Acute SBO/Ileus Acute on chronic diastolic heart failure Echo 04/2017 at [place] - LVEF 45-50% with moderate RV dysfunctioin Permanent atrial fibrillation on diltiazem and metoprolol for rate control. History of CAD s/p PCI to LAD in 2011 History of ascending aortic aneurysm measuring [address] 03/2016 Chronic DVT on xarelto as an outpatient Chronic renal failure Systemic Hypertension Non-compliance Continue metoprolol and diltiazem for optimal rate control of atrial fibrillation. Subjective Date of service: 09/08/17 Principal diagnosis: afib with RVR and CHF excacerbation Interval history: Patient is alert and oriented. No interval changes. Objective Vital Signs Temp Pulse Pulse Pulse Resp Resp Resp 09/08/17 08:40 09/08/17 07:44 98.6 F 98 H 22 09/08/17 06:50 123 H 09/08/17 05:36 106 H 24 09/08/17 04:52 97.5 F L 131 H 24 09/08/17 02:29 141 H 09/08/17 01:33 97.5 F L 24 09/07/17 21:16 97.9 F 136 H 24 09/07/17 19:45 123 H 09/07/17 15:51 98.2 F 135 H 24 09/07/17 14:01 118 H 118 H 20 20 09/07/17 13:55 118 H 118 H 20 20 BP Pulse Ox 09/08/17 08:40 100 09/08/17 07:44 156/92 100 09/08/17 06:50 143/78 09/08/17 05:36 100 09/08/17 04:52 143/78 89 09/08/17 02:29 182/102 09/08/17 01:33 182/102 09/07/17 21:16 163/94 91 09/07/17 19:45 09/07/17 15:51 153/98 100 09/07/17 14:01 09/07/17 13:55 - Physical Examination General: No Apparent Distress HEENT: Positive: PERRL Cardiac: Positive: irregularly irregular Extremities: Absent: edema - Labs and Meds Comprehensive Metabolic Panel 09/08/17 Range/Units 04:48 Sodium 142 (137-145) mmol/L Potassium 4.3 (3.6-5.0) mmol/L Chloride 107.4 H (98-107) mmol/L Carbon Dioxide 20 L (22-30) mmol/L BUN 23 H (9-20) mg/dL Creatinine 0.9 (0.8-1.5) mg/dL Glucose 127 H (75-100) mg/dL Calcium 8.7 (8.4-10.2) mg/dL
[2017-09-08] MEDS: PEPCID IV SCH ×2 (12:38→22:02)
[2017-09-08] MEDS: XARELTO PO SCH (12:39)
[2017-09-08] MEDS: HALDOL IV PRN (12:53)
--- NOTE | 2017-09-08 14:52 | Progress Note ---
Assessment and Plan Assessment and plan: Acute hypoxemic respiratory failure - Patient extubated on 08/29/17. Continue O2 to maintain sats. BiPAP as clinically indicated. Ileus - Cont TPN. NPO status. - Surgery following - patient said he passed gas, abdominal x-ray showed resolving ileus, will check KUB tomorrow Toxic metabolic encephalopathy - Resolving - Supportive care - patient was moaning continuously Acute on chronic diastolic heart failure - Echo 04/2017 at [place] - LVEF 45-50%, moderate RV dysfunction, RVSP 49 mm Hg and dilated IVC - Cardiology following Permanent atrial fibrillation with RVR - Continue Cardizem and metoprolol - Cardiology following. Sepsis - ID following - resolving Complicated UTI with urinary retention. -08/24/17 SP cath was placed -08/27/17 CT abd showed free air intraperitoneal, SP cath, high density material in the urinary bladder, prominent prostate and bilateral renal calculi. -08/27/17 taken to the OR for cysto, evacuation of clots and merida placement by due to acute retention and exlap with evacuation of large amount of blood 2 L from abdominal cavity by Surgery. No bowel perforation History of CAD s/p PCI to LAD (2011) low salt diet and medical management History of ascending aortic aneurysm measuring [address] 03/2016 Chronic DVT - Was on xarelto as an O/P Acute renal failure Etiology likely secondary to Sepsis/ATN Resolving. Nephrology following. Systemic Hypertension Urinary retention - Follow a cardiac cath in place, draining clean urine - Urology following Bipolar disorder - Psych is following Disposition - Pending LTAC placement. History Interval history: Patient was seen and evaluated this morning, Patient was alert and oriented, but he was continuously moaning, per his daughter that is his baseline. Hospitalist Physical - Physical exam Narrative exam: Not in cardiopulmonary distress. NG tube in place. The patient appeared well nourished and normally developed. Vital signs as documented. Head exam is unremarkable. No scleral icterus . Neck is without jugular venous distension, thyromegaly, or carotid bruits. Lungs are clear to auscultation. Cardiac exam reveals regular rate and Rhythm. First and second heart sounds normal. No murmurs, rubs or gallops. Abdominal exam soft and nontender, normoactive bowel sounds . Extremities are nonedematous and both femoral and pedal pulses are normal. [employer]: Alert and oriented 3. No focal weakness. - Constitutional Vitals: Temp Pulse Resp BP Pulse Ox 98.6 F 98 H 22 156/92 100 09/08/17 07:44 09/08/17 07:44 09/08/17 07:44 09/08/17 07:44 09/08/17 08:40 General appearance: Present: no acute distress Results - Labs CBC & Chem 7: 09/07/17 05:11 09/08/17 04:48 Labs: Laboratory Last Values WBC 10.9 K/mm3 (4.5-11.0) 09/07/17 05:11 RBC 3.45 M/mm3 (3.65-5.03) L 09/07/17 05:11 Hgb 8.2 gm/dl (11.8-15.2) L 09/07/17 05:11 Hct 25.1 % (35.5-45.6) L 09/07/17 05:11 MCV 73 fl (84-94) L 09/07/17 05:11 MCH 24 pg (28-32) L 09/07/17 05:11 MCHC 33 % (32-34) 09/07/17 05:11 RDW 23.2 % (13.2-15.2) H 09/07/17 05:11 Plt Count 194 K/mm3 (140-440) 09/07/17 05:11 Lymph % (Auto) 6.3 % (13.4-35.0) L 09/07/17 05:11 [place] % (Auto) 3.6 % (0.0-7.3) 09/07/17 05:11 Eos % (Auto) 2.9 % (0.0-4.3) 09/07/17 05:11 Baso % (Auto) 0.8 % (0.0-1.8) 09/07/17 05:11 Lymph # 0.7 K/mm3 (1.2-5.4) L 09/07/17 05:11 [place] # 0.4 K/mm3 (0.0-0.8) 09/07/17 05:11 Eos # 0.3 K/mm3 (0.0-0.4) 09/07/17 05:11 Baso # 0.1 K/mm3 (0.0-0.1) 09/07/17 05:11 Add Manual Diff Complete 09/01/17 07:02 Total Counted 100 09/01/17 07:02 Seg Neutrophils % 86.4 % (40.0-70.0) H 09/07/17 05:11 Seg Neuts % (Manual) 93.0 % (40.0-70.0) H 09/01/17 07:02 Band Neutrophils % 0 % 09/01/17 07:02 Lymphocytes % (Manual) 3.0 % (13.4-35.0) L 09/01/17 07:02 Reactive Lymphs % (Man) 0 % 09/01/17 07:02 Monocytes % (Manual) 2.0 % (0.0-7.3) 09/01/17 07:02 Eosinophils % (Manual) 2.0 % (0.0-4.3) 09/01/17 07:02 Basophils % (Manual) 0 % (0.0-1.8) 09/01/17 07:02 Metamyelocytes % 0 % 09/01/17 07:02 Myelocytes % 0 % 09/01/17 07:02 Promyelocytes % 0 % 09/01/17 07:02 Blast Cells % 0 % 09/01/17 07:02 Nucleated RBC % Not Reportable 09/01/17 07:02 Seg Neutrophils # 9.5 K/mm3 (1.8-7.7) H 09/07/17 05:11 Seg Neutrophils # Man 12.6 K/mm3 (1.8-7.7) H 09/01/17 07:02 Band Neutrophils # 0.0 K/mm3 09/01/17 07:02 Lymphocytes # (Manual) 0.4 K/mm3 (1.2-5.4) L 09/01/17 07:02 Abs React Lymphs (Man) 0.0 K/mm3 09/01/17 07:02 Monocytes # (Manual) 0.3 K/mm3 (0.0-0.8) 09/01/17 07:02 Eosinophils # (Manual) 0.3 K/mm3 (0.0-0.4) 09/01/17 07:02 Basophils # (Manual) 0.0 K/mm3 (0.0-0.1) 09/01/17 07:02 Metamyelocytes # 0.0 K/mm3 09/01/17 07:02 Myelocytes # 0.0 K/mm3 09/01/17 07:02 Promyelocytes # 0.0 K/mm3 09/01/17 07:02 Blast Cells # 0.0 K/mm3 09/01/17 07:02 WBC Morphology Not Reportable 09/01/17 07:02 Hypersegmented Neuts Not Reportable 09/01/17 07:02 Hyposegmented Neuts Not Reportable 09/01/17 07:02 Hypogranular Neuts Not Reportable 09/01/17 07:02 Smudge Cells Not Reportable 09/01/17 07:02 Toxic Granulation Not Reportable 09/01/17 07:02 Toxic Vacuolation Not Reportable 09/01/17 07:02 Dohle Bodies Not Reportable 09/01/17 07:02 Pelger-Huet Anomaly Not Reportable 09/01/17 07:02 Cande Rods Not Reportable 09/01/17 07:02 Platelet Estimate Cons 09/01/17 07:02 Clumped Platelets Not Reportable 09/01/17 07:02 Plt Clumps, EDTA Not Reportable 09/01/17 07:02 Large Platelets Not Reportable 09/01/17 07:02 Giant Platelets Not Reportable 09/01/17 07:02 Platelet Satelliting Not Reportable 09/01/17 07:02 Plt Morphology Comment Not Reportable 09/01/17 07:02 RBC Morphology Not Reportable 09/01/17 07:02 Dimorphic RBCs Not Reportable 09/01/17 07:02 Polychromasia Not Reportable 09/01/17 07:02 Hypochromasia 2+ 09/01/17 07:02 Poikilocytosis 2+ 09/01/17 07:02 Anisocytosis 2+ 09/01/17 07:02 Microcytosis Not Reportable 09/01/17 07:02 Macrocytosis Not Reportable 09/01/17 07:02 Spherocytes Not Reportable 09/01/17 07:02 Pappenheimer Bodies Not Reportable 09/01/17 07:02 Sickle Cells Not Reportable 09/01/17 07:02 Target Cells Few 09/01/17 07:02 Tear Drop Cells Not Reportable 09/01/17 07:02 Ovalocytes Not Reportable 09/01/17 07:02 Helmet Cells Not Reportable 09/01/17 07:02 [place] Bodies Not Reportable 09/01/17 07:02 [place] Rings Not Reportable 09/01/17 07:02 [place] Cells 1+ 09/01/17 07:02 Bite Cells Not Reportable 09/01/17 07:02 Crenated Cell Not Reportable 09/01/17 07:02 Elliptocytes Not Reportable 09/01/17 07:02 Acanthocytes (Spur) 1+ 09/01/17 07:02 Rouleaux Not Reportable 09/01/17 07:02 Hemoglobin C Crystals Not Reportable 09/01/17 07:02 Schistocytes Few 09/01/17 07:02 Malaria parasites Not Reportable 09/01/17 07:02 Jonny Bodies Not Reportable 09/01/17 07:02 Hem Pathologist Commnt No 09/01/17 07:02 PT 22.7 Sec. (12.2-14.9) H 09/02/17 17:00 INR 1.87 (0.87-1.13) H 09/02/17 17:00 APTT 37.7 Sec. (24.2-36.6) H 09/02/17 17:00 POC ABG pH 7.435 (7.35-7.45) 08/29/17 10:58 POC ABG pCO2 34.8 (35-45) L 08/29/17 10:58 POC ABG pO2 93 (80-105) 08/29/17 10:58 POC ABG HCO3 23.4 08/29/17 10:58 POC ABG Total CO2 24 08/29/17 10:58 POC ABG O2 Sat 98 08/29/17 10:58 POC ABG Base Excess -1 08/29/17 10:58 FiO2 28 % 08/29/17 10:58 Sodium 142 mmol/L (137-145) 09/08/17 04:48 Potassium 4.3 mmol/L (3.6-5.0) 09/08/17 04:48 Chloride 107.4 mmol/L (98-107) H 09/08/17 04:48 Carbon Dioxide 20 mmol/L (22-30) L 09/08/17 04:48 Anion Gap 19 mmol/L 09/08/17 04:48 BUN 23 mg/dL (9-20) H 09/08/17 04:48 Creatinine 0.9 mg/dL (0.8-1.5) 09/08/17 04:48 Estimated GFR > 60 ml/min 09/08/17 04:48 BUN/Creatinine Ratio 26 % 09/08/17 04:48 Glucose 127 mg/dL (75-100) H 09/08/17 04:48 POC Glucose 105 (70-105) 09/08/17 12:06 Lactic Acid 1.80 mmol/L (0.7-2.0) 08/28/17 Unknown Calcium 8.7 mg/dL (8.4-10.2) 09/08/17 04:48 Phosphorus 3.70 mg/dL (2.5-4.5) D 09/08/17 04:48 Magnesium 2.20 mg/dL (1.7-2.3) 09/08/17 04:48 Total Bilirubin 1.30 mg/dL (0.1-1.2) H 09/02/17 17:00 AST 88 units/L (5-40) H 09/02/17 17:00 ALT 69 units/L (7-56) H 09/02/17 17:00 Alkaline Phosphatase 91 units/L (35-129) 09/02/17 17:00 Total Creatine Kinase 155 units/L (55-170) 08/23/17 10:56 CK-MB (CK-2) 4.4 ng/mL (0.0-4.0) H 08/23/17 10:56 CK-MB (CK-2) Rel Index 2.8 (0-4) 08/23/17 10:56 Troponin T 0.297 ng/mL (0.00-0.029) H* 09/02/17 17:00 C-Reactive Protein 38.40 mg/dL (0.00-1.30) H 08/29/17 20:45 NT-Pro-B Natriuret Pep 11844 pg/mL (0-900) H 08/23/17 02:54 Total Protein 6.0 g/dL (6.3-8.2) L 09/02/17 17:00 Albumin 2.3 g/dL (3.9-5) L 09/02/17 17:00 Albumin/Globulin Ratio 0.6 % 09/02/17 17:00 Triglycerides 69 mg/dL (2-149) 08/23/17 02:54 Cholesterol 125 mg/dL (50-199) 08/23/17 02:54 LDL Cholesterol Direct 77 mg/dL (50-130) 08/23/17 02:54 HDL Cholesterol 36 mg/dL (40-59) L 08/23/17 02:54 Cholesterol/HDL Ratio 3.47 % 08/23/17 02:54 Prostate Specific Ag 96.82 ng/mL (0.00-4.00) H 08/30/17 18:11 Urine Color Yellow (Yellow) 08/28/17 21:00 Urine Turbidity Clear (Clear) 08/28/17 21:00 Urine pH 5.0 (5.0-7.0) 08/28/17 21:00 Ur Specific [place] 1.005 (1.003-1.030) 08/28/17 21:00 Urine Protein <15 mg/dl mg/dL (Negative) 08/28/17 21:00 Urine Glucose (UA) Neg mg/dL (Negative) 08/28/17 21:00 Urine Ketones Neg mg/dL (Negative) 08/28/17 21:00 Urine Blood Lg (Negative) 08/28/17 21:00 Urine Nitrite Neg (Negative) 08/28/17 21:00 Urine Bilirubin Neg (Negative) 08/28/17 21:00 Urine Urobilinogen < 2.0 mg/dL (<2.0) 08/28/17 21:00 Ur Leukocyte Esterase Lg (Negative) 08/28/17 21:00 Urine WBC (Auto) 43.0 /HPF (0.0-6.0) H 08/28/17 21:00 Urine RBC (Auto) > 182.0 /HPF (0.0-6.0) 08/28/17 21:00 U Epithel Cells (Auto) < 1.0 /HPF (0-13.0) 08/28/17 21:00 Uric Acid Crystals 2+ 08/28/17 21:00 Urine Mucus Few /HPF 08/28/17 21:00 Blood Type B POSITIVE 08/27/17 20:03 Antibody Screen Negative 08/27/17 20:03 Crossmatch See Detail 08/27/17 20:03
[2017-09-08] MEDS: CARDIZEM/D5W 100MG/100ML 100 MG/100 ML BAG IV SCH (18:36)
[2017-09-08] MEDS ORDERED: INTRALIPID 20% 250 ML IV SCH (20:00)
[2017-09-08] MEDS ORDERED: TPN ADULT 2,400 ML IV SCH (20:00)
[2017-09-08] MEDS: SODIUM CHLORIDE FLUSH SYRINGE 10 ML IV SCH (22:00)
[2017-09-09] MEDS: ATIVAN IV PRN ×2 (01:00→19:58)
[2017-09-09] MEDS: CARDIZEM/D5W 100MG/100ML 100 MG/100 ML BAG IV SCH ×2 (06:30→18:03)
[2017-09-09] MEDS: LOPRESSOR IV SCH ×4 (06:31→18:05)
[2017-09-09 07:48] LABS: Alanine Aminotransferase 14 units/L (7-56); Albumin 2.2 g/dL (3.9-5); BUN/Creatinine Ratio 33; Blood Urea Nitrogen 23 mg/dL (9-20); Hemolysis Index 3
--- NOTE | 2017-09-09 08:58 | Progress Note ---
Assessment and Plan - Patient Problems (1) Respiratory failure Current Visit: Yes Status: Acute (2) Shock Current Visit: Yes Status: Acute (3) Atrial fibrillation with RVR Current Visit: Yes Status: Acute Subjective Date of service: 09/09/17 Principal diagnosis: afib with RVR and CHF excacerbation Interval history: NO cv C\O,,HUNGRY Objective Vital Signs Temp Pulse Pulse Pulse Resp Resp BP 09/09/17 05:14 97.8 F 102 H 22 142/74 09/08/17 23:35 98.1 F 106 H 20 119/78 09/08/17 22:00 104 H 20 09/08/17 21:08 09/08/17 20:51 104 H 16 09/08/17 20:11 98.1 F 81 22 133/71 09/08/17 16:50 98.5 F 94 H 22 09/08/17 12:39 117 H 09/08/17 10:00 111 H 32 H BP Pulse Ox 09/09/17 05:14 97 09/08/17 23:35 93 09/08/17 22:00 09/08/17 21:08 98 09/08/17 20:51 09/08/17 20:11 100 09/08/17 16:50 144/77 93 09/08/17 12:39 09/08/17 10:00 95 - Physical Examination General: No Apparent Distress HEENT: Positive: PERRL Neck: Positive: neck supple, trachea midline. Negative: JVD/HJR, Masses Cardiac: Positive: irregularly irregular Lungs: Positive: clear to auscultation Neuro: Positive: Weakness Abdomen: Positive: Unremarkable, Soft, Active Bowel Sounds, Other Skin: Positive: Clear Extremities: Absent: edema - Labs and Meds Cardiac Enzymes 09/09/17 Range/Units 07:17 AST 28 (5-40) units/L Comprehensive Metabolic Panel 09/09/17 Range/Units 07:17 Sodium 140 (137-145) mmol/L Potassium 4.2 (3.6-5.0) mmol/L Chloride 106.5 (98-107) mmol/L Carbon Dioxide 21 L (22-30) mmol/L BUN 23 H (9-20) mg/dL Creatinine 0.7 L (0.8-1.5) mg/dL Glucose 102 H (75-100) mg/dL Calcium 8.0 L (8.4-10.2) mg/dL AST 28 (5-40) units/L ALT 14 (7-56) units/L Alkaline Phosphatase 75 (35-129) units/L Total Protein 5.9 L (6.3-8.2) g/dL Albumin 2.2 L (3.9-5) g/dL - Imaging and Cardiology EKG: image reviewed
--- NOTE | 2017-09-09 10:43 | XRay Report ---
FINAL REPORT EXAM: XR ABDOMEN 1V AP HISTORY: sbo COMPARISON: Radiograph of the abdomen performed on 09/07/2017 TECHNIQUE: Two views of the abdomen FINDINGS: IVC filter is in place. Dialysis catheter is unchanged in position. The enteric tube has been removed. Again seen are dilated loops of bowel throughout the mid abdomen. No free air. No acute bony or soft tissue abnormality. IMPRESSION: Persistently dilated loops of bowel in the mid abdomen that may represent ileus or obstruction.
[2017-09-09] MEDS: ATROVENT IH SCH ×4 (11:05→20:13)
[2017-09-09] MEDS: XARELTO PO SCH (11:36)
[2017-09-09] MEDS: PEPCID IV SCH ×2 (11:36→21:21)
--- NOTE | 2017-09-09 15:06 | Progress Note ---
Assessment and Plan Assessment and plan: Acute hypoxemic respiratory failure - Patient extubated on 08/29/17. Continue O2 to maintain sats. BiPAP as clinically indicated. Ileus - Cont TPN. NPO status. - Surgery following - patient said he passed gas, abdominal x-ray showed resolving ileus, will check KUB tomorrow Toxic metabolic encephalopathy - Resolving - Supportive care - patient was moaning continuously Acute on chronic diastolic heart failure - Echo 04/2017 at [facility] - LVEF 45-50%, moderate RV dysfunction, RVSP 49 mm Hg and dilated IVC - Cardiology following Permanent atrial fibrillation with RVR - Continue Cardizem and metoprolol - Cardiology following. Sepsis - ID following - resolving Complicated UTI with urinary retention. -08/24/17 SP cath was placed -08/27/17 CT abd showed free air intraperitoneal, SP cath, high density material in the urinary bladder, prominent prostate and bilateral renal calculi. -08/27/17 taken to the OR for cysto, evacuation of clots and merida placement by due to acute retention and exlap with evacuation of large amount of blood 2 L from abdominal cavity by Surgery. No bowel perforation History of CAD s/p PCI to LAD (2011) low salt diet and medical management History of ascending aortic aneurysm measuring [address] 03/2016 Chronic DVT - Was on xarelto as an O/P Acute renal failure Etiology likely secondary to Sepsis/ATN Resolving. Nephrology following. Systemic Hypertension Urinary retention - Follow a cardiac cath in place, draining clean urine - Urology following Bipolar disorder - Psych is following Disposition - Pending LTAC placement. History Interval history: Patient was seen and evaluated this morning, Patient was alert and oriented, but he was continuously moaning, per his daughter that is his baseline. Hospitalist Physical - Physical exam Narrative exam: Not in cardiopulmonary distress. NG tube in place. The patient appeared well nourished and normally developed. Vital signs as documented. Head exam is unremarkable. No scleral icterus . Neck is without jugular venous distension, thyromegaly, or carotid bruits. Lungs are clear to auscultation. Cardiac exam reveals regular rate and Rhythm. First and second heart sounds normal. No murmurs, rubs or gallops. Abdominal exam soft and nontender, normoactive bowel sounds . Extremities are nonedematous and both femoral and pedal pulses are normal. 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 No focal weakness. - Constitutional Vitals: Temp Pulse Resp BP Pulse Ox 98.0 F 98 H 22 138/75 96 09/09/17 08:36 09/09/17 11:37 09/09/17 11:12 09/09/17 08:36 09/09/17 11:08 General appearance: Present: no acute distress Results - Labs CBC & Chem 7: 09/07/17 05:11 09/09/17 07:17 Labs: Laboratory Last Values WBC 10.9 K/mm3 (4.5-11.0) 09/07/17 05:11 RBC 3.45 M/mm3 (3.65-5.03) L 09/07/17 05:11 Hgb 8.2 gm/dl (11.8-15.2) L 09/07/17 05:11 Hct 25.1 % (35.5-45.6) L 09/07/17 05:11 MCV 73 fl (84-94) L 09/07/17 05:11 MCH 24 pg (28-32) L 09/07/17 05:11 MCHC 33 % (32-34) 09/07/17 05:11 RDW 23.2 % (13.2-15.2) H 09/07/17 05:11 Plt Count 194 K/mm3 (140-440) 09/07/17 05:11 Lymph % (Auto) 6.3 % (13.4-35.0) L 09/07/17 05:11 Rich % (Auto) 3.6 % (0.0-7.3) 09/07/17 05:11 Eos % (Auto) 2.9 % (0.0-4.3) 09/07/17 05:11 Baso % (Auto) 0.8 % (0.0-1.8) 09/07/17 05:11 Lymph # 0.7 K/mm3 (1.2-5.4) L 09/07/17 05:11 Rich # 0.4 K/mm3 (0.0-0.8) 09/07/17 05:11 Eos # 0.3 K/mm3 (0.0-0.4) 09/07/17 05:11 Baso # 0.1 K/mm3 (0.0-0.1) 09/07/17 05:11 Add Manual Diff Complete 09/01/17 07:02 Total Counted 100 09/01/17 07:02 Seg Neutrophils % 86.4 % (40.0-70.0) H 09/07/17 05:11 Seg Neuts % (Manual) 93.0 % (40.0-70.0) H 09/01/17 07:02 Band Neutrophils % 0 % 09/01/17 07:02 Lymphocytes % (Manual) 3.0 % (13.4-35.0) L 09/01/17 07:02 Reactive Lymphs % (Man) 0 % 09/01/17 07:02 Monocytes % (Manual) 2.0 % (0.0-7.3) 09/01/17 07:02 Eosinophils % (Manual) 2.0 % (0.0-4.3) 09/01/17 07:02 Basophils % (Manual) 0 % (0.0-1.8) 09/01/17 07:02 Metamyelocytes % 0 % 09/01/17 07:02 Myelocytes % 0 % 09/01/17 07:02 Promyelocytes % 0 % 09/01/17 07:02 Blast Cells % 0 % 09/01/17 07:02 Nucleated RBC % Not Reportable 09/01/17 07:02 Seg Neutrophils # 9.5 K/mm3 (1.8-7.7) H 09/07/17 05:11 Seg Neutrophils # Man 12.6 K/mm3 (1.8-7.7) H 09/01/17 07:02 Band Neutrophils # 0.0 K/mm3 09/01/17 07:02 Lymphocytes # (Manual) 0.4 K/mm3 (1.2-5.4) L 09/01/17 07:02 Abs React Lymphs (Man) 0.0 K/mm3 09/01/17 07:02 Monocytes # (Manual) 0.3 K/mm3 (0.0-0.8) 09/01/17 07:02 Eosinophils # (Manual) 0.3 K/mm3 (0.0-0.4) 09/01/17 07:02 Basophils # (Manual) 0.0 K/mm3 (0.0-0.1) 09/01/17 07:02 Metamyelocytes # 0.0 K/mm3 09/01/17 07:02 Myelocytes # 0.0 K/mm3 09/01/17 07:02 Promyelocytes # 0.0 K/mm3 09/01/17 07:02 Blast Cells # 0.0 K/mm3 09/01/17 07:02 WBC Morphology Not Reportable 09/01/17 07:02 Hypersegmented Neuts Not Reportable 09/01/17 07:02 Hyposegmented Neuts Not Reportable 09/01/17 07:02 Hypogranular Neuts Not Reportable 09/01/17 07:02 Smudge Cells Not Reportable 09/01/17 07:02 Toxic Granulation Not Reportable 09/01/17 07:02 Toxic Vacuolation Not Reportable 09/01/17 07:02 Dohle Bodies Not Reportable 09/01/17 07:02 Pelger-Huet Anomaly Not Reportable 09/01/17 07:02 Cande Rods Not Reportable 09/01/17 07:02 Platelet Estimate Cons 09/01/17 07:02 Clumped Platelets Not Reportable 09/01/17 07:02 Plt Clumps, EDTA Not Reportable 09/01/17 07:02 Large Platelets Not Reportable 09/01/17 07:02 Giant Platelets Not Reportable 09/01/17 07:02 Platelet Satelliting Not Reportable 09/01/17 07:02 Plt Morphology Comment Not Reportable 09/01/17 07:02 RBC Morphology Not Reportable 09/01/17 07:02 Dimorphic RBCs Not Reportable 09/01/17 07:02 Polychromasia Not Reportable 09/01/17 07:02 Hypochromasia 2+ 09/01/17 07:02 Poikilocytosis 2+ 09/01/17 07:02 Anisocytosis 2+ 09/01/17 07:02 Microcytosis Not Reportable 09/01/17 07:02 Macrocytosis Not Reportable 09/01/17 07:02 Spherocytes Not Reportable 09/01/17 07:02 Pappenheimer Bodies Not Reportable 09/01/17 07:02 Sickle Cells Not Reportable 09/01/17 07:02 Target Cells Few 09/01/17 07:02 Tear Drop Cells Not Reportable 09/01/17 07:02 Ovalocytes Not Reportable 09/01/17 07:02 Helmet Cells Not Reportable 09/01/17 07:02 Morrell-Henefer Bodies Not Reportable 09/01/17 07:02 [place] Rings Not Reportable 09/01/17 07:02 James Cells 1+ 09/01/17 07:02 Bite Cells Not Reportable 09/01/17 07:02 Crenated Cell Not Reportable 09/01/17 07:02 Elliptocytes Not Reportable 09/01/17 07:02 Acanthocytes (Spur) 1+ 09/01/17 07:02 Rouleaux Not Reportable 09/01/17 07:02 Hemoglobin C Crystals Not Reportable 09/01/17 07:02 Schistocytes Few 09/01/17 07:02 Malaria parasites Not Reportable 09/01/17 07:02 Jonny Bodies Not Reportable 09/01/17 07:02 Hem Pathologist Commnt No 09/01/17 07:02 PT 22.7 Sec. (12.2-14.9) H 09/02/17 17:00 INR 1.87 (0.87-1.13) H 09/02/17 17:00 APTT 37.7 Sec. (24.2-36.6) H 09/02/17 17:00 POC ABG pH 7.435 (7.35-7.45) 08/29/17 10:58 POC ABG pCO2 34.8 (35-45) L 08/29/17 10:58 POC ABG pO2 93 (80-105) 08/29/17 10:58 POC ABG HCO3 23.4 08/29/17 10:58 POC ABG Total CO2 24 08/29/17 10:58 POC ABG O2 Sat 98 08/29/17 10:58 POC ABG Base Excess -1 08/29/17 10:58 FiO2 28 % 08/29/17 10:58 Sodium 140 mmol/L (137-145) 09/09/17 07:17 Potassium 4.2 mmol/L (3.6-5.0) 09/09/17 07:17 Chloride 106.5 mmol/L (98-107) 09/09/17 07:17 Carbon Dioxide 21 mmol/L (22-30) L 09/09/17 07:17 Anion Gap 17 mmol/L 09/09/17 07:17 BUN 23 mg/dL (9-20) H 09/09/17 07:17 Creatinine 0.7 mg/dL (0.8-1.5) L 09/09/17 07:17 Estimated GFR > 60 ml/min 09/09/17 07:17 BUN/Creatinine Ratio 33 % 09/09/17 07:17 Glucose 102 mg/dL (75-100) H 09/09/17 07:17 POC Glucose 121 (70-105) H 09/09/17 11:58 Lactic Acid 1.80 mmol/L (0.7-2.0) 08/28/17 Unknown Calcium 8.0 mg/dL (8.4-10.2) L 09/09/17 07:17 Phosphorus 3.70 mg/dL (2.5-4.5) D 09/08/17 04:48 Magnesium 2.20 mg/dL (1.7-2.3) 09/08/17 04:48 Total Bilirubin 0.60 mg/dL (0.1-1.2) 09/09/17 07:17 AST 28 units/L (5-40) 09/09/17 07:17 ALT 14 units/L (7-56) 09/09/17 07:17 Alkaline Phosphatase 75 units/L (35-129) 09/09/17 07:17 Total Creatine Kinase 155 units/L (55-170) 08/23/17 10:56 CK-MB (CK-2) 4.4 ng/mL (0.0-4.0) H 08/23/17 10:56 CK-MB (CK-2) Rel Index 2.8 (0-4) 08/23/17 10:56 Troponin T 0.297 ng/mL (0.00-0.029) H* 09/02/17 17:00 C-Reactive Protein 38.40 mg/dL (0.00-1.30) H 08/29/17 20:45 NT-Pro-B Natriuret Pep 63796 pg/mL (0-900) H 08/23/17 02:54 Total Protein 5.9 g/dL (6.3-8.2) L 09/09/17 07:17 Albumin 2.2 g/dL (3.9-5) L 09/09/17 07:17 Albumin/Globulin Ratio 0.6 % 09/09/17 07:17 Triglycerides 69 mg/dL (2-149) 08/23/17 02:54 Cholesterol 125 mg/dL (50-199) 08/23/17 02:54 LDL Cholesterol Direct 77 mg/dL (50-130) 08/23/17 02:54 HDL Cholesterol 36 mg/dL (40-59) L 08/23/17 02:54 Cholesterol/HDL Ratio 3.47 % 08/23/17 02:54 Prostate Specific Ag 96.82 ng/mL (0.00-4.00) H 08/30/17 18:11 Urine Color Yellow (Yellow) 08/28/17 21:00 Urine Turbidity Clear (Clear) 08/28/17 21:00 Urine pH 5.0 (5.0-7.0) 08/28/17 21:00 Ur Specific Griffin 1.005 (1.003-1.030) 08/28/17 21:00 Urine Protein <15 mg/dl mg/dL (Negative) 08/28/17 21:00 Urine Glucose (UA) Neg mg/dL (Negative) 08/28/17 21:00 Urine Ketones Neg mg/dL (Negative) 08/28/17 21:00 Urine Blood Lg (Negative) 08/28/17 21:00 Urine Nitrite Neg (Negative) 08/28/17 21:00 Urine Bilirubin Neg (Negative) 08/28/17 21:00 Urine Urobilinogen < 2.0 mg/dL (<2.0) 08/28/17 21:00 Ur Leukocyte Esterase Lg (Negative) 08/28/17 21:00 Urine WBC (Auto) 43.0 /HPF (0.0-6.0) H 08/28/17 21:00 Urine RBC (Auto) > 182.0 /HPF (0.0-6.0) 08/28/17 21:00 U Epithel Cells (Auto) < 1.0 /HPF (0-13.0) 08/28/17 21:00 Uric Acid Crystals 2+ 08/28/17 21:00 Urine Mucus Few /HPF 08/28/17 21:00 Blood Type B POSITIVE 08/27/17 20:03 Antibody Screen Negative 08/27/17 20:03 Crossmatch See Detail 08/27/17 20:03
--- NOTE | 2017-09-09 15:43 | Progress Note ---
Subjective Patient Reports: Positive: feels better, flatus, bowel movement Narrative: looks improving ,Had a BM tis morning abd soft an benign , will start PO ? Objective Vital Signs - 12hr 09/09/17 09/09/17 09/09/17 05:14 08:36 11:03 Temperature 97.8 F 98.0 F Pulse Rate 102 H 92 H Pulse Rate [ 95 H Anterior Upper Lobe] Respiratory 22 20 Rate Respiratory 18 Rate [Anterior Upper Lobe] Blood Pressure 142/74 138/75 O2 Sat by Pulse 97 100 Oximetry 09/09/17 09/09/17 09/09/17 11:08 11:12 11:37 Temperature Pulse Rate 98 H Pulse Rate [ 102 H Anterior Upper Lobe] Respiratory Rate Respiratory 22 Rate [Anterior Upper Lobe] Blood Pressure O2 Sat by Pulse 96 Oximetry - Labs 09/07/17 05:11 09/09/17 07:17 Diabetes panel 09/09/17 Range/Units 07:17 Sodium 140 (137-145) mmol/L Potassium 4.2 (3.6-5.0) mmol/L Chloride 106.5 (98-107) mmol/L Carbon Dioxide 21 L (22-30) mmol/L BUN 23 H (9-20) mg/dL Creatinine 0.7 L (0.8-1.5) mg/dL Glucose 102 H (75-100) mg/dL Calcium 8.0 L (8.4-10.2) mg/dL AST 28 (5-40) units/L ALT 14 (7-56) units/L Alkaline Phosphatase 75 (35-129) units/L Total Protein 5.9 L (6.3-8.2) g/dL Albumin 2.2 L (3.9-5) g/dL Calcium panel 09/09/17 Range/Units 07:17 Calcium 8.0 L (8.4-10.2) mg/dL Albumin 2.2 L (3.9-5) g/dL Pituitary panel 09/09/17 Range/Units 07:17 Sodium 140 (137-145) mmol/L Potassium 4.2 (3.6-5.0) mmol/L Chloride 106.5 (98-107) mmol/L Carbon Dioxide 21 L (22-30) mmol/L BUN 23 H (9-20) mg/dL Creatinine 0.7 L (0.8-1.5) mg/dL Glucose 102 H (75-100) mg/dL Calcium 8.0 L (8.4-10.2) mg/dL Adrenal panel 09/09/17 Range/Units 07:17 Sodium 140 (137-145) mmol/L Potassium 4.2 (3.6-5.0) mmol/L Chloride 106.5 (98-107) mmol/L Carbon Dioxide 21 L (22-30) mmol/L BUN 23 H (9-20) mg/dL Creatinine 0.7 L (0.8-1.5) mg/dL Glucose 102 H (75-100) mg/dL Calcium 8.0 L (8.4-10.2) mg/dL Total Bilirubin 0.60 (0.1-1.2) mg/dL AST 28 (5-40) units/L ALT 14 (7-56) units/L Alkaline Phosphatase 75 (35-129) units/L Total Protein 5.9 L (6.3-8.2) g/dL Albumin 2.2 L (3.9-5) g/dL
[2017-09-09] MEDS: HALDOL IV PRN (19:58)
[2017-09-09] MEDS ORDERED: TPN ADULT 2,400 ML IV SCH (20:00)
[2017-09-09] MEDS: SODIUM CHLORIDE FLUSH SYRINGE 10 ML IV SCH (21:16)
[2017-09-10] MEDS: LOPRESSOR IV SCH ×3 (01:00→12:58)
[2017-09-10] MEDS: CARDIZEM/D5W 100MG/100ML 100 MG/100 ML BAG IV SCH ×2 (02:27→13:09)
[2017-09-10] MEDS: HALDOL IV PRN (02:27)
[2017-09-10] MEDS: ATIVAN IV PRN ×2 (02:27→22:04)
[2017-09-10 07:36] LABS: BUN/Creatinine Ratio 29; Blood Urea Nitrogen 23 mg/dL (9-20); Calcium 8.3 mg/dL (8.4-10.2); Hemolysis Index 0
[2017-09-10] MEDS: ATROVENT IH SCH ×3 (08:15→20:00)
--- NOTE | 2017-09-10 11:32 | Progress Note ---
Assessment and Plan - Patient Problems (1) Respiratory failure Current Visit: Yes Status: Acute (2) Shock Current Visit: Yes Status: Acute (3) Atrial fibrillation with RVR Current Visit: Yes Status: Acute Subjective Date of service: 09/10/17 Principal diagnosis: afib with RVR and CHF excacerbation Interval history: NO cv C\O,,HUNGRY Objective Vital Signs Temp Pulse Pulse Pulse Pulse Resp Resp 09/10/17 09:43 97.5 F L 110 H 22 09/10/17 08:30 100 H 20 09/10/17 08:29 09/10/17 08:15 95 H 95 H 20 09/10/17 06:47 96 H 09/10/17 06:09 98.2 F 96 H 22 09/10/17 01:00 122 H 09/09/17 23:29 97.5 F L 122 H 24 09/09/17 22:00 109 H 102 H 09/09/17 21:21 97.5 F L 109 H 24 09/09/17 20:25 78 09/09/17 20:10 70 09/09/17 18:05 96 H 09/09/17 16:56 97.9 F 114 H 20 09/09/17 16:32 98 H 09/09/17 16:22 91 H 09/09/17 12:42 97.5 F L 95 H 22 09/09/17 11:37 98 H Resp BP Pulse Ox 09/10/17 09:43 126/81 96 09/10/17 08:30 09/10/17 08:29 100 09/10/17 08:15 20 09/10/17 06:47 135/69 09/10/17 06:09 135/69 100 09/10/17 01:00 139/90 09/09/17 23:29 136/90 97 09/09/17 22:00 09/09/17 21:21 118/63 100 09/09/17 20:25 24 09/09/17 20:10 24 99 09/09/17 18:05 142/81 09/09/17 16:56 142/82 99 09/09/17 16:32 19 09/09/17 16:22 18 09/09/17 12:42 128/72 99 09/09/17 11:37 - Physical Examination General: No Apparent Distress HEENT: Positive: PERRL Neck: Positive: neck supple, trachea midline. Negative: JVD/HJR, Masses Cardiac: Positive: Reg Rate and Rhythm Lungs: Positive: clear to auscultation Neuro: Positive: Weakness Abdomen: Positive: Unremarkable, Soft, Active Bowel Sounds, Other Skin: Positive: Clear Extremities: Absent: edema - Labs and Meds Comprehensive Metabolic Panel 09/10/17 Range/Units 06:00 Sodium 137 (137-145) mmol/L Potassium 4.4 (3.6-5.0) mmol/L Chloride 103.2 (98-107) mmol/L Carbon Dioxide 23 (22-30) mmol/L BUN 23 H (9-20) mg/dL Creatinine 0.8 (0.8-1.5) mg/dL Glucose 99 (75-100) mg/dL Calcium 8.3 L (8.4-10.2) mg/dL - Imaging and Cardiology EKG: image reviewed
[2017-09-10] MEDS: PEPCID IV SCH ×2 (12:58→22:04)
[2017-09-10] MEDS: SODIUM CHLORIDE FLUSH SYRINGE 10 ML IV SCH ×2 (13:10→22:05)
--- NOTE | 2017-09-10 14:50 | Progress Note ---
Subjective Patient Reports: Positive: feels better, flatus Narrative: doing fine surgically , abd soft benign , on ICE chips , will start full liq and advance slowly ,Pt need half-way nursing care , ? LTEC ? will see prn Objective Vital Signs - 12hr 09/10/17 09/10/17 09/10/17 06:09 06:47 08:15 Temperature 98.2 F Pulse Rate 96 H 96 H Pulse Rate [ 95 H Anterior Bilateral Throughout] Pulse Rate [ 95 H Anterior Upper Lobe] Respiratory 22 Rate Respiratory 20 Rate [Anterior Bilateral Throughout] Respiratory 20 Rate [Anterior Upper Lobe] Blood Pressure 135/69 135/69 O2 Sat by Pulse 100 Oximetry 09/10/17 09/10/17 09/10/17 08:29 08:30 09:43 Temperature 97.5 F L Pulse Rate 110 H Pulse Rate [ 100 H Anterior Bilateral Throughout] Pulse Rate [ Anterior Upper Lobe] Respiratory 22 Rate Respiratory 20 Rate [Anterior Bilateral Throughout] Respiratory Rate [Anterior Upper Lobe] Blood Pressure 126/81 O2 Sat by Pulse 100 96 Oximetry 09/10/17 09/10/17 09/10/17 11:32 12:58 14:17 Temperature 97.9 F Pulse Rate 103 H 106 H Pulse Rate [ 100 H Anterior Bilateral Throughout] Pulse Rate [ 100 H Anterior Upper Lobe] Respiratory 22 Rate Respiratory 18 Rate [Anterior Bilateral Throughout] Respiratory 18 Rate [Anterior Upper Lobe] Blood Pressure 109/61 O2 Sat by Pulse 97 Oximetry 09/10/17 14:26 Temperature Pulse Rate Pulse Rate [ 106 H Anterior Bilateral Throughout] Pulse Rate [ 106 H Anterior Upper Lobe] Respiratory Rate Respiratory 18 Rate [Anterior Bilateral Throughout] Respiratory 18 Rate [Anterior Upper Lobe] Blood Pressure O2 Sat by Pulse Oximetry - Labs 09/07/17 05:11 09/10/17 06:00 Diabetes panel 09/10/17 Range/Units 06:00 Sodium 137 (137-145) mmol/L Potassium 4.4 (3.6-5.0) mmol/L Chloride 103.2 (98-107) mmol/L Carbon Dioxide 23 (22-30) mmol/L BUN 23 H (9-20) mg/dL Creatinine 0.8 (0.8-1.5) mg/dL Glucose 99 (75-100) mg/dL Calcium 8.3 L (8.4-10.2) mg/dL Calcium panel 09/10/17 Range/Units 06:00 Calcium 8.3 L (8.4-10.2) mg/dL Phosphorus 3.40 (2.5-4.5) mg/dL Pituitary panel 09/10/17 Range/Units 06:00 Sodium 137 (137-145) mmol/L Potassium 4.4 (3.6-5.0) mmol/L Chloride 103.2 (98-107) mmol/L Carbon Dioxide 23 (22-30) mmol/L BUN 23 H (9-20) mg/dL Creatinine 0.8 (0.8-1.5) mg/dL Glucose 99 (75-100) mg/dL Calcium 8.3 L (8.4-10.2) mg/dL Adrenal panel 09/10/17 Range/Units 06:00 Sodium 137 (137-145) mmol/L Potassium 4.4 (3.6-5.0) mmol/L Chloride 103.2 (98-107) mmol/L Carbon Dioxide 23 (22-30) mmol/L BUN 23 H (9-20) mg/dL Creatinine 0.8 (0.8-1.5) mg/dL Glucose 99 (75-100) mg/dL Calcium 8.3 L (8.4-10.2) mg/dL
--- NOTE | 2017-09-10 15:24 | Progress Note ---
Assessment and Plan Assessment and plan: Acute hypoxemic respiratory failure - Patient extubated on 08/29/17. Continue O2 to maintain sats. BiPAP as clinically indicated. Ileus - Cont TPN. NPO status. - Surgery following - patient said he passed gas, abdominal x-ray showed resolving ileus, will check KUB tomorrow Toxic metabolic encephalopathy - Resolving - Supportive care - patient was moaning continuously Acute on chronic diastolic heart failure - Echo 04/2017 at [place] - LVEF 45-50%, moderate RV dysfunction, RVSP 49 mm Hg and dilated IVC - Cardiology following Permanent atrial fibrillation with RVR - Continue Cardizem and metoprolol - Cardiology following. Sepsis - ID following - resolving Complicated UTI with urinary retention. -08/24/17 SP cath was placed -08/27/17 CT abd showed free air intraperitoneal, SP cath, high density material in the urinary bladder, prominent prostate and bilateral renal calculi. -08/27/17 taken to the OR for cysto, evacuation of clots and merida placement by due to acute retention and exlap with evacuation of large amount of blood 2 L from abdominal cavity by Surgery. No bowel perforation History of CAD s/p PCI to LAD (2011) low salt diet and medical management History of ascending aortic aneurysm measuring [address] 03/2016 Chronic DVT - Was on xarelto as an O/P Acute renal failure Etiology likely secondary to Sepsis/ATN Resolving. Nephrology following. Systemic Hypertension Urinary retention - Follow a cardiac cath in place, draining clean urine - Urology following Bipolar disorder - Psych is following Disposition - Pending LTAC placement. History Interval history: Patient was seen and evaluated this morning, Patient was alert and oriented, but he was continuously moaning, per his daughter that is his baseline. Hospitalist Physical - Physical exam Narrative exam: Not in cardiopulmonary distress. NG tube in place. The patient appeared well nourished and normally developed. Vital signs as documented. Head exam is unremarkable. No scleral icterus . Neck is without jugular venous distension, thyromegaly, or carotid bruits. Lungs are clear to auscultation. Cardiac exam reveals regular rate and Rhythm. First and second heart sounds normal. No murmurs, rubs or gallops. Abdominal exam soft and nontender, normoactive bowel sounds . Extremities are nonedematous and both femoral and pedal pulses are normal. 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 No focal weakness. - Constitutional Vitals: Temp Pulse Resp BP Pulse Ox 97.9 F 106 H 18 109/61 97 09/10/17 11:32 09/10/17 14:26 09/10/17 14:26 09/10/17 11:32 09/10/17 11:32 General appearance: Present: no acute distress Results - Labs CBC & Chem 7: 09/07/17 05:11 09/10/17 06:00 Labs: Laboratory Last Values WBC 10.9 K/mm3 (4.5-11.0) 09/07/17 05:11 RBC 3.45 M/mm3 (3.65-5.03) L 09/07/17 05:11 Hgb 8.2 gm/dl (11.8-15.2) L 09/07/17 05:11 Hct 25.1 % (35.5-45.6) L 09/07/17 05:11 MCV 73 fl (84-94) L 09/07/17 05:11 MCH 24 pg (28-32) L 09/07/17 05:11 MCHC 33 % (32-34) 09/07/17 05:11 RDW 23.2 % (13.2-15.2) H 09/07/17 05:11 Plt Count 194 K/mm3 (140-440) 09/07/17 05:11 Lymph % (Auto) 6.3 % (13.4-35.0) L 09/07/17 05:11 [place] % (Auto) 3.6 % (0.0-7.3) 09/07/17 05:11 Eos % (Auto) 2.9 % (0.0-4.3) 09/07/17 05:11 Baso % (Auto) 0.8 % (0.0-1.8) 09/07/17 05:11 Lymph # 0.7 K/mm3 (1.2-5.4) L 09/07/17 05:11 [place] # 0.4 K/mm3 (0.0-0.8) 09/07/17 05:11 Eos # 0.3 K/mm3 (0.0-0.4) 09/07/17 05:11 Baso # 0.1 K/mm3 (0.0-0.1) 09/07/17 05:11 Add Manual Diff Complete 09/01/17 07:02 Total Counted 100 09/01/17 07:02 Seg Neutrophils % 86.4 % (40.0-70.0) H 09/07/17 05:11 Seg Neuts % (Manual) 93.0 % (40.0-70.0) H 09/01/17 07:02 Band Neutrophils % 0 % 09/01/17 07:02 Lymphocytes % (Manual) 3.0 % (13.4-35.0) L 09/01/17 07:02 Reactive Lymphs % (Man) 0 % 09/01/17 07:02 Monocytes % (Manual) 2.0 % (0.0-7.3) 09/01/17 07:02 Eosinophils % (Manual) 2.0 % (0.0-4.3) 09/01/17 07:02 Basophils % (Manual) 0 % (0.0-1.8) 09/01/17 07:02 Metamyelocytes % 0 % 09/01/17 07:02 Myelocytes % 0 % 09/01/17 07:02 Promyelocytes % 0 % 09/01/17 07:02 Blast Cells % 0 % 09/01/17 07:02 Nucleated RBC % Not Reportable 09/01/17 07:02 Seg Neutrophils # 9.5 K/mm3 (1.8-7.7) H 09/07/17 05:11 Seg Neutrophils # Man 12.6 K/mm3 (1.8-7.7) H 09/01/17 07:02 Band Neutrophils # 0.0 K/mm3 09/01/17 07:02 Lymphocytes # (Manual) 0.4 K/mm3 (1.2-5.4) L 09/01/17 07:02 Abs React Lymphs (Man) 0.0 K/mm3 09/01/17 07:02 Monocytes # (Manual) 0.3 K/mm3 (0.0-0.8) 09/01/17 07:02 Eosinophils # (Manual) 0.3 K/mm3 (0.0-0.4) 09/01/17 07:02 Basophils # (Manual) 0.0 K/mm3 (0.0-0.1) 09/01/17 07:02 Metamyelocytes # 0.0 K/mm3 09/01/17 07:02 Myelocytes # 0.0 K/mm3 09/01/17 07:02 Promyelocytes # 0.0 K/mm3 09/01/17 07:02 Blast Cells # 0.0 K/mm3 09/01/17 07:02 WBC Morphology Not Reportable 09/01/17 07:02 Hypersegmented Neuts Not Reportable 09/01/17 07:02 Hyposegmented Neuts Not Reportable 09/01/17 07:02 Hypogranular Neuts Not Reportable 09/01/17 07:02 Smudge Cells Not Reportable 09/01/17 07:02 Toxic Granulation Not Reportable 09/01/17 07:02 Toxic Vacuolation Not Reportable 09/01/17 07:02 Dohle Bodies Not Reportable 09/01/17 07:02 Pelger-Huet Anomaly Not Reportable 09/01/17 07:02 Cande Rods Not Reportable 09/01/17 07:02 Platelet Estimate Cons 09/01/17 07:02 Clumped Platelets Not Reportable 09/01/17 07:02 Plt Clumps, EDTA Not Reportable 09/01/17 07:02 Large Platelets Not Reportable 09/01/17 07:02 Giant Platelets Not Reportable 09/01/17 07:02 Platelet Satelliting Not Reportable 09/01/17 07:02 Plt Morphology Comment Not Reportable 09/01/17 07:02 RBC Morphology Not Reportable 09/01/17 07:02 Dimorphic RBCs Not Reportable 09/01/17 07:02 Polychromasia Not Reportable 09/01/17 07:02 Hypochromasia 2+ 09/01/17 07:02 Poikilocytosis 2+ 09/01/17 07:02 Anisocytosis 2+ 09/01/17 07:02 Microcytosis Not Reportable 09/01/17 07:02 Macrocytosis Not Reportable 09/01/17 07:02 Spherocytes Not Reportable 09/01/17 07:02 Pappenheimer Bodies Not Reportable 09/01/17 07:02 Sickle Cells Not Reportable 09/01/17 07:02 Target Cells Few 09/01/17 07:02 Tear Drop Cells Not Reportable 09/01/17 07:02 Ovalocytes Not Reportable 09/01/17 07:02 Helmet Cells Not Reportable 09/01/17 07:02 Morrell-[place] Bodies Not Reportable 09/01/17 07:02 [place] Rings Not Reportable 09/01/17 07:02 [place] Cells 1+ 09/01/17 07:02 Bite Cells Not Reportable 09/01/17 07:02 Crenated Cell Not Reportable 09/01/17 07:02 Elliptocytes Not Reportable 09/01/17 07:02 Acanthocytes (Spur) 1+ 09/01/17 07:02 Rouleaux Not Reportable 09/01/17 07:02 Hemoglobin C Crystals Not Reportable 09/01/17 07:02 Schistocytes Few 09/01/17 07:02 Malaria parasites Not Reportable 09/01/17 07:02 Jonny Bodies Not Reportable 09/01/17 07:02 Hem Pathologist Commnt No 09/01/17 07:02 PT 22.7 Sec. (12.2-14.9) H 09/02/17 17:00 INR 1.87 (0.87-1.13) H 09/02/17 17:00 APTT 37.7 Sec. (24.2-36.6) H 09/02/17 17:00 POC ABG pH 7.435 (7.35-7.45) 08/29/17 10:58 POC ABG pCO2 34.8 (35-45) L 08/29/17 10:58 POC ABG pO2 93 (80-105) 08/29/17 10:58 POC ABG HCO3 23.4 08/29/17 10:58 POC ABG Total CO2 24 08/29/17 10:58 POC ABG O2 Sat 98 08/29/17 10:58 POC ABG Base Excess -1 08/29/17 10:58 FiO2 28 % 08/29/17 10:58 Sodium 137 mmol/L (137-145) 09/10/17 06:00 Potassium 4.4 mmol/L (3.6-5.0) 09/10/17 06:00 Chloride 103.2 mmol/L (98-107) 09/10/17 06:00 Carbon Dioxide 23 mmol/L (22-30) 09/10/17 06:00 Anion Gap 15 mmol/L 09/10/17 06:00 BUN 23 mg/dL (9-20) H 09/10/17 06:00 Creatinine 0.8 mg/dL (0.8-1.5) 09/10/17 06:00 Estimated GFR > 60 ml/min 09/10/17 06:00 BUN/Creatinine Ratio 29 % 09/10/17 06:00 Glucose 99 mg/dL (75-100) 09/10/17 06:00 POC Glucose 111 (70-105) H 09/10/17 14:16 Lactic Acid 1.80 mmol/L (0.7-2.0) 08/28/17 Unknown Calcium 8.3 mg/dL (8.4-10.2) L 09/10/17 06:00 Phosphorus 3.40 mg/dL (2.5-4.5) 09/10/17 06:00 Magnesium 2.20 mg/dL (1.7-2.3) 09/10/17 06:00 Total Bilirubin 0.60 mg/dL (0.1-1.2) 09/09/17 07:17 AST 28 units/L (5-40) 09/09/17 07:17 ALT 14 units/L (7-56) 09/09/17 07:17 Alkaline Phosphatase 75 units/L (35-129) 09/09/17 07:17 Total Creatine Kinase 155 units/L (55-170) 08/23/17 10:56 CK-MB (CK-2) 4.4 ng/mL (0.0-4.0) H 08/23/17 10:56 CK-MB (CK-2) Rel Index 2.8 (0-4) 08/23/17 10:56 Troponin T 0.297 ng/mL (0.00-0.029) H* 09/02/17 17:00 C-Reactive Protein 38.40 mg/dL (0.00-1.30) H 08/29/17 20:45 NT-Pro-B Natriuret Pep 03320 pg/mL (0-900) H 08/23/17 02:54 Total Protein 5.9 g/dL (6.3-8.2) L 09/09/17 07:17 Albumin 2.2 g/dL (3.9-5) L 09/09/17 07:17 Albumin/Globulin Ratio 0.6 % 09/09/17 07:17 Triglycerides 69 mg/dL (2-149) 08/23/17 02:54 Cholesterol 125 mg/dL (50-199) 08/23/17 02:54 LDL Cholesterol Direct 77 mg/dL (50-130) 08/23/17 02:54 HDL Cholesterol 36 mg/dL (40-59) L 08/23/17 02:54 Cholesterol/HDL Ratio 3.47 % 08/23/17 02:54 Prostate Specific Ag 96.82 ng/mL (0.00-4.00) H 08/30/17 18:11 Urine Color Yellow (Yellow) 08/28/17 21:00 Urine Turbidity Clear (Clear) 08/28/17 21:00 Urine pH 5.0 (5.0-7.0) 08/28/17 21:00 Ur Specific [place] 1.005 (1.003-1.030) 08/28/17 21:00 Urine Protein <15 mg/dl mg/dL (Negative) 08/28/17 21:00 Urine Glucose (UA) Neg mg/dL (Negative) 08/28/17 21:00 Urine Ketones Neg mg/dL (Negative) 08/28/17 21:00 Urine Blood Lg (Negative) 08/28/17 21:00 Urine Nitrite Neg (Negative) 08/28/17 21:00 Urine Bilirubin Neg (Negative) 08/28/17 21:00 Urine Urobilinogen < 2.0 mg/dL (<2.0) 08/28/17 21:00 Ur Leukocyte Esterase Lg (Negative) 08/28/17 21:00 Urine WBC (Auto) 43.0 /HPF (0.0-6.0) H 08/28/17 21:00 Urine RBC (Auto) > 182.0 /HPF (0.0-6.0) 08/28/17 21:00 U Epithel Cells (Auto) < 1.0 /HPF (0-13.0) 08/28/17 21:00 Uric Acid Crystals 2+ 08/28/17 21:00 Urine Mucus Few /HPF 08/28/17 21:00 Blood Type B POSITIVE 08/27/17 20:03 Antibody Screen Negative 08/27/17 20:03 Crossmatch See Detail 08/27/17 20:03
[2017-09-10] MEDS: XARELTO PO SCH (18:32)
[2017-09-10] MEDS ORDERED: TPN ADULT 2,400 ML IV SCH (20:00)
[2017-09-11] MEDS: LOPRESSOR IV SCH ×5 (00:33→22:14)
[2017-09-11] MEDS: CARDIZEM/D5W 100MG/100ML 100 MG/100 ML BAG IV SCH (00:46)
[2017-09-11] MEDS ORDERED: ATROVENT IH PRN (03:55)
[2017-09-11] MEDS: ATIVAN IV PRN ×2 (05:46→22:15)
[2017-09-11 07:29] LABS: BUN/Creatinine Ratio 24; Blood Urea Nitrogen 22 mg/dL (9-20); Calcium 8.8 mg/dL (8.4-10.2); Hemolysis Index 0
--- NOTE | 2017-09-11 10:13 | Progress Note ---
Assessment and Plan Sepsis Acute SBO/Ileus Acute on chronic diastolic heart failure Echo 04/2017 at [place] - LVEF 45-50% with moderate RV dysfunctioin Permanent atrial fibrillation on diltiazem and metoprolol for rate control. History of CAD s/p PCI to LAD in 2011 History of ascending aortic aneurysm measuring [address] 03/2016 Chronic DVT on xarelto as an outpatient Chronic renal failure Systemic Hypertension Non-compliance Continue metoprolol and diltiazem for optimal rate control of atrial fibrillation. Subjective Date of service: 09/11/17 Principal diagnosis: afib with RVR and CHF excacerbation Interval history: Patient is alert and oriented. He has no complaints. For small bowel series today. Objective Vital Signs Temp Pulse Pulse Pulse Pulse Resp Resp 09/11/17 08:06 97.6 F 122 H 20 09/11/17 05:45 128 H 09/11/17 04:07 73 09/11/17 04:02 97.3 F L 126 H 24 09/11/17 03:42 09/11/17 00:33 145 H 09/11/17 00:29 98.2 F 137 H 22 09/10/17 23:49 115 H 09/10/17 22:00 122 H 112 H 24 09/10/17 20:35 97.9 F 24 09/10/17 20:13 130 H 09/10/17 20:01 122 H 09/10/17 16:17 97.8 F 140 H 24 09/10/17 14:26 106 H 106 H 18 09/10/17 14:17 100 H 100 H 18 09/10/17 12:58 106 H 09/10/17 11:32 97.9 F 103 H 22 Resp BP Pulse Ox 09/11/17 08:06 126/58 100 09/11/17 05:45 123/69 09/11/17 04:07 95 09/11/17 04:02 123/69 99 09/11/17 03:42 95 09/11/17 00:33 123/73 09/11/17 00:29 123/73 100 09/10/17 23:49 100 09/10/17 22:00 09/10/17 20:35 131/79 09/10/17 20:13 18 09/10/17 20:01 18 95 09/10/17 16:17 160/93 97 07/22/18 14:26 18 09/10/17 14:17 18 09/10/17 12:58 09/10/17 11:32 109/61 97 - Physical Examination General: No Apparent Distress HEENT: Positive: PERRL Cardiac: Positive: irregularly irregular Neuro: Positive: Weakness Extremities: Absent: edema - Labs and Meds Comprehensive Metabolic Panel 09/11/17 Range/Units 05:24 Sodium 139 (137-145) mmol/L Potassium 4.6 (3.6-5.0) mmol/L Chloride 102.9 (98-107) mmol/L Carbon Dioxide 23 (22-30) mmol/L BUN 22 H (9-20) mg/dL Creatinine 0.9 (0.8-1.5) mg/dL Glucose 83 (75-100) mg/dL Calcium 8.8 (8.4-10.2) mg/dL
--- NOTE | 2017-09-11 13:11 | Progress Note ---
Assessment and Plan Assessment and plan: Acute hypoxemic respiratory failure - Patient extubated on 08/29/17. Continue O2 to maintain sats. BiPAP as clinically indicated. Ileus - Cont TPN. NPO status. - Surgery following - Will check the result of small bowel series Toxic metabolic encephalopathy - Resolving - Supportive care - patient was moaning continuously Acute on chronic diastolic heart failure - Echo 04/2017 at [place] - LVEF 45-50%, moderate RV dysfunction, RVSP 49 mm Hg and dilated IVC - Cardiology following Permanent atrial fibrillation with RVR - Continue Cardizem and metoprolol - Cardiology following. Sepsis - ID following - resolving Complicated UTI with urinary retention. -08/24/17 SP cath was placed -08/27/17 CT abd showed free air intraperitoneal, SP cath, high density material in the urinary bladder, prominent prostate and bilateral renal calculi. -08/27/17 taken to the OR for cysto, evacuation of clots and merida placement by due to acute retention and exlap with evacuation of large amount of blood 2 L from abdominal cavity by Surgery. No bowel perforation History of CAD s/p PCI to LAD (2011) low salt diet and medical management History of ascending aortic aneurysm measuring [address] 03/2016 Chronic DVT - Was on xarelto as an O/P Acute renal failure Etiology likely secondary to Sepsis/ATN Resolving. Nephrology following. Systemic Hypertension Urinary retention - Follow a cardiac cath in place, draining clean urine - Urology following Bipolar disorder - Psych is following Disposition - Pending LTAC placement. History Interval history: Patient was seen and evaluated this morning, Patient was alert and oriented, but he was continuously moaning, per his daughter that is his baseline. Hospitalist Physical - Physical exam Narrative exam: Not in cardiopulmonary distress. NG tube in place. The patient appeared well nourished and normally developed. Vital signs as documented. Head exam is unremarkable. No scleral icterus . Neck is without jugular venous distension, thyromegaly, or carotid bruits. Lungs are clear to auscultation. Cardiac exam reveals regular rate and Rhythm. First and second heart sounds normal. No murmurs, rubs or gallops. Abdominal exam soft and nontender, normoactive bowel sounds . Extremities are nonedematous and both femoral and pedal pulses are normal. 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 patient was continuously moaning. - Constitutional Vitals: Temp Pulse Resp BP Pulse Ox 97.6 F 122 H 20 126/58 100 09/11/17 08:06 09/11/17 08:06 09/11/17 08:06 09/11/17 08:06 09/11/17 08:06 General appearance: Present: no acute distress Results - Labs CBC & Chem 7: 09/07/17 05:11 09/11/17 05:24 Labs: Laboratory Last Values WBC 10.9 K/mm3 (4.5-11.0) 09/07/17 05:11 RBC 3.45 M/mm3 (3.65-5.03) L 09/07/17 05:11 Hgb 8.2 gm/dl (11.8-15.2) L 09/07/17 05:11 Hct 25.1 % (35.5-45.6) L 09/07/17 05:11 MCV 73 fl (84-94) L 09/07/17 05:11 MCH 24 pg (28-32) L 09/07/17 05:11 MCHC 33 % (32-34) 09/07/17 05:11 RDW 23.2 % (13.2-15.2) H 09/07/17 05:11 Plt Count 194 K/mm3 (140-440) 09/07/17 05:11 Lymph % (Auto) 6.3 % (13.4-35.0) L 09/07/17 05:11 [place] % (Auto) 3.6 % (0.0-7.3) 09/07/17 05:11 Eos % (Auto) 2.9 % (0.0-4.3) 09/07/17 05:11 Baso % (Auto) 0.8 % (0.0-1.8) 09/07/17 05:11 Lymph # 0.7 K/mm3 (1.2-5.4) L 09/07/17 05:11 [place] # 0.4 K/mm3 (0.0-0.8) 09/07/17 05:11 Eos # 0.3 K/mm3 (0.0-0.4) 09/07/17 05:11 Baso # 0.1 K/mm3 (0.0-0.1) 09/07/17 05:11 Add Manual Diff Complete 09/01/17 07:02 Total Counted 100 09/01/17 07:02 Seg Neutrophils % 86.4 % (40.0-70.0) H 09/07/17 05:11 Seg Neuts % (Manual) 93.0 % (40.0-70.0) H 09/01/17 07:02 Band Neutrophils % 0 % 09/01/17 07:02 Lymphocytes % (Manual) 3.0 % (13.4-35.0) L 09/01/17 07:02 Reactive Lymphs % (Man) 0 % 09/01/17 07:02 Monocytes % (Manual) 2.0 % (0.0-7.3) 09/01/17 07:02 Eosinophils % (Manual) 2.0 % (0.0-4.3) 09/01/17 07:02 Basophils % (Manual) 0 % (0.0-1.8) 09/01/17 07:02 Metamyelocytes % 0 % 09/01/17 07:02 Myelocytes % 0 % 09/01/17 07:02 Promyelocytes % 0 % 09/01/17 07:02 Blast Cells % 0 % 09/01/17 07:02 Nucleated RBC % Not Reportable 09/01/17 07:02 Seg Neutrophils # 9.5 K/mm3 (1.8-7.7) H 09/07/17 05:11 Seg Neutrophils # Man 12.6 K/mm3 (1.8-7.7) H 09/01/17 07:02 Band Neutrophils # 0.0 K/mm3 09/01/17 07:02 Lymphocytes # (Manual) 0.4 K/mm3 (1.2-5.4) L 09/01/17 07:02 Abs React Lymphs (Man) 0.0 K/mm3 09/01/17 07:02 Monocytes # (Manual) 0.3 K/mm3 (0.0-0.8) 09/01/17 07:02 Eosinophils # (Manual) 0.3 K/mm3 (0.0-0.4) 09/01/17 07:02 Basophils # (Manual) 0.0 K/mm3 (0.0-0.1) 09/01/17 07:02 Metamyelocytes # 0.0 K/mm3 09/01/17 07:02 Myelocytes # 0.0 K/mm3 09/01/17 07:02 Promyelocytes # 0.0 K/mm3 09/01/17 07:02 Blast Cells # 0.0 K/mm3 09/01/17 07:02 WBC Morphology Not Reportable 09/01/17 07:02 Hypersegmented Neuts Not Reportable 09/01/17 07:02 Hyposegmented Neuts Not Reportable 09/01/17 07:02 Hypogranular Neuts Not Reportable 09/01/17 07:02 Smudge Cells Not Reportable 09/01/17 07:02 Toxic Granulation Not Reportable 09/01/17 07:02 Toxic Vacuolation Not Reportable 09/01/17 07:02 Dohle Bodies Not Reportable 09/01/17 07:02 Pelger-Huet Anomaly Not Reportable 09/01/17 07:02 Cande Rods Not Reportable 09/01/17 07:02 Platelet Estimate Cons 09/01/17 07:02 Clumped Platelets Not Reportable 09/01/17 07:02 Plt Clumps, EDTA Not Reportable 09/01/17 07:02 Large Platelets Not Reportable 09/01/17 07:02 Giant Platelets Not Reportable 09/01/17 07:02 Platelet Satelliting Not Reportable 09/01/17 07:02 Plt Morphology Comment Not Reportable 09/01/17 07:02 RBC Morphology Not Reportable 09/01/17 07:02 Dimorphic RBCs Not Reportable 09/01/17 07:02 Polychromasia Not Reportable 09/01/17 07:02 Hypochromasia 2+ 09/01/17 07:02 Poikilocytosis 2+ 09/01/17 07:02 Anisocytosis 2+ 09/01/17 07:02 Microcytosis Not Reportable 09/01/17 07:02 Macrocytosis Not Reportable 09/01/17 07:02 Spherocytes Not Reportable 09/01/17 07:02 Pappenheimer Bodies Not Reportable 09/01/17 07:02 Sickle Cells Not Reportable 09/01/17 07:02 Target Cells Few 09/01/17 07:02 Tear Drop Cells Not Reportable 09/01/17 07:02 Ovalocytes Not Reportable 09/01/17 07:02 Helmet Cells Not Reportable 09/01/17 07:02 [place] Bodies Not Reportable 09/01/17 07:02 [place] Rings Not Reportable 09/01/17 07:02 [place] Cells 1+ 09/01/17 07:02 Bite Cells Not Reportable 09/01/17 07:02 Crenated Cell Not Reportable 09/01/17 07:02 Elliptocytes Not Reportable 09/01/17 07:02 Acanthocytes (Spur) 1+ 09/01/17 07:02 Rouleaux Not Reportable 09/01/17 07:02 Hemoglobin C Crystals Not Reportable 09/01/17 07:02 Schistocytes Few 09/01/17 07:02 Malaria parasites Not Reportable 09/01/17 07:02 Jonny Bodies Not Reportable 09/01/17 07:02 Hem Pathologist Commnt No 09/01/17 07:02 PT 22.7 Sec. (12.2-14.9) H 09/02/17 17:00 INR 1.87 (0.87-1.13) H 09/02/17 17:00 APTT 37.7 Sec. (24.2-36.6) H 09/02/17 17:00 POC ABG pH 7.435 (7.35-7.45) 08/29/17 10:58 POC ABG pCO2 34.8 (35-45) L 08/29/17 10:58 POC ABG pO2 93 (80-105) 08/29/17 10:58 POC ABG HCO3 23.4 08/29/17 10:58 POC ABG Total CO2 24 08/29/17 10:58 POC ABG O2 Sat 98 08/29/17 10:58 POC ABG Base Excess -1 08/29/17 10:58 FiO2 28 % 08/29/17 10:58 Sodium 139 mmol/L (137-145) 09/11/17 05:24 Potassium 4.6 mmol/L (3.6-5.0) 09/11/17 05:24 Chloride 102.9 mmol/L (98-107) 09/11/17 05:24 Carbon Dioxide 23 mmol/L (22-30) 09/11/17 05:24 Anion Gap 18 mmol/L 09/11/17 05:24 BUN 22 mg/dL (9-20) H 09/11/17 05:24 Creatinine 0.9 mg/dL (0.8-1.5) 09/11/17 05:24 Estimated GFR > 60 ml/min 09/11/17 05:24 BUN/Creatinine Ratio 24 % 09/11/17 05:24 Glucose 83 mg/dL (75-100) 09/11/17 05:24 POC Glucose 120 (70-105) H 09/11/17 12:10 Lactic Acid 1.80 mmol/L (0.7-2.0) 08/28/17 Unknown Calcium 8.8 mg/dL (8.4-10.2) 09/11/17 05:24 Phosphorus 3.30 mg/dL (2.5-4.5) 09/11/17 05:24 Magnesium 2.20 mg/dL (1.7-2.3) 09/10/17 06:00 Total Bilirubin 0.60 mg/dL (0.1-1.2) 09/09/17 07:17 AST 28 units/L (5-40) 09/09/17 07:17 ALT 14 units/L (7-56) 09/09/17 07:17 Alkaline Phosphatase 75 units/L (35-129) 09/09/17 07:17 Total Creatine Kinase 155 units/L (55-170) 08/23/17 10:56 CK-MB (CK-2) 4.4 ng/mL (0.0-4.0) H 08/23/17 10:56 CK-MB (CK-2) Rel Index 2.8 (0-4) 08/23/17 10:56 Troponin T 0.297 ng/mL (0.00-0.029) H* 09/02/17 17:00 C-Reactive Protein 38.40 mg/dL (0.00-1.30) H 08/29/17 20:45 NT-Pro-B Natriuret Pep 77211 pg/mL (0-900) H 08/23/17 02:54 Total Protein 5.9 g/dL (6.3-8.2) L 09/09/17 07:17 Albumin 2.2 g/dL (3.9-5) L 09/09/17 07:17 Albumin/Globulin Ratio 0.6 % 09/09/17 07:17 Triglycerides 69 mg/dL (2-149) 08/23/17 02:54 Cholesterol 125 mg/dL (50-199) 08/23/17 02:54 LDL Cholesterol Direct 77 mg/dL (50-130) 08/23/17 02:54 HDL Cholesterol 36 mg/dL (40-59) L 08/23/17 02:54 Cholesterol/HDL Ratio 3.47 % 08/23/17 02:54 Prostate Specific Ag 96.82 ng/mL (0.00-4.00) H 08/30/17 18:11 Urine Color Yellow (Yellow) 08/28/17 21:00 Urine Turbidity Clear (Clear) 08/28/17 21:00 Urine pH 5.0 (5.0-7.0) 08/28/17 21:00 Ur Specific [place] 1.005 (1.003-1.030) 08/28/17 21:00 Urine Protein <15 mg/dl mg/dL (Negative) 08/28/17 21:00 Urine Glucose (UA) Neg mg/dL (Negative) 08/28/17 21:00 Urine Ketones Neg mg/dL (Negative) 08/28/17 21:00 Urine Blood Lg (Negative) 08/28/17 21:00 Urine Nitrite Neg (Negative) 08/28/17 21:00 Urine Bilirubin Neg (Negative) 08/28/17 21:00 Urine Urobilinogen < 2.0 mg/dL (<2.0) 08/28/17 21:00 Ur Leukocyte Esterase Lg (Negative) 08/28/17 21:00 Urine WBC (Auto) 43.0 /HPF (0.0-6.0) H 08/28/17 21:00 Urine RBC (Auto) > 182.0 /HPF (0.0-6.0) 08/28/17 21:00 U Epithel Cells (Auto) < 1.0 /HPF (0-13.0) 08/28/17 21:00 Uric Acid Crystals 2+ 08/28/17 21:00 Urine Mucus Few /HPF 08/28/17 21:00 Blood Type B POSITIVE 08/27/17 20:03 Antibody Screen Negative 08/27/17 20:03 Crossmatch See Detail 08/27/17 20:03
[2017-09-11] MEDS: LANOXIN IV SCH ×2 (14:06→19:42)
[2017-09-11] MEDS: PEPCID IV SCH ×2 (14:07→22:14)
[2017-09-11] MEDS: SODIUM CHLORIDE FLUSH SYRINGE 10 ML IV SCH ×2 (14:08→22:15)
--- NOTE | 2017-09-11 16:47 | Discharge Summary ---
Providers - Providers Date of Admission: 08/23/17 04:59 Date of discharge: 09/20/17 Attending physician: PREETI IZQUIERDO MD 08/23/17 04:59 Consult to Physician [CONS] Routine Comment: Consulting Provider: HEIDI LOMBARDI Physician Instructions: Reason For Exam: afib/rvr/chf 08/23/17 11:41 Consult to Physician [CONS] Routine Comment: Consulting Provider: GABRIELA HENDRICKS Physician Instructions: Reason For Exam: urinary retention 08/24/17 09:47 Consult to PICC Line RN [CONS] Routine Reason For Exam: Picc Line insertion Type Line:: PICC 08/24/17 15:40 Consult to Mental Health [CONS] Urgent Reason For Exam: psych 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 Notified:: awaiting call back Comment:: fax to [phone] 08/25/17 10:24 Occupational Therapy Evaluate and Treat [CONS] Routine Comment: Reason For Exam: Dibility Physical Therapy Evaluation and Treat [CONS] Routine Comment: Reason For Exam: Dibility 08/27/17 17:28 Consult to Physician [CONS] Stat Comment: Consulting Provider: SHON MILLAN Physician Instructions: spoke with him Reason For Exam: bowel movement 08/29/17 12:16 Consult to Physician [CONS] Routine Comment: Consulting Provider: DIDI PEPPER Physician Instructions: Reason For Exam: sepsis 08/29/17 12:17 Consult to Physician [CONS] Routine Comment: Consulting Provider: JHONATHAN GAN Physician Instructions: Reason For Exam: ARf 08/29/17 13:14 Consult to Dietitian/Nutrition [CONS] Routine Physician Instructions: Reason For Exam: Reason for Consult: Write/Manage TPN/PPN 08/30/17 11:33 Speech Therapy Evaluation and Treat [CONS] Routine Reason For Exam: Swallow Evaluation Speech Therapy Evaluation and Treat [CONS] Stat Reason For Exam: evaluation for feeding 08/30/17 11:34 Physical Therapy Evaluation and Treat [CONS] Routine Comment: Reason For Exam: Evaluation 08/30/17 11:35 Consult to Mental Health [CONS] Routine Reason For Exam: Psych Evaluation/Past Psych history Place consult to:: Psychiatric Services Notified:: Tiffanie Cruz Phone number called:: [phone] Was contact made?: Yes If yes, spoke with:: Tiffanie Cruz Time called:: 11:37 Comment:: Called psych consult and made them aware that patient needs to be seen. 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 Hadley 72-year-old man with history of bipolar disorder, hypertension, bph, obesity, chronic atrial fibrillation on Xarelto, medical noncompliance, prior deep vein thrombosis, suspected CHRIS, chronic kidney disease 3, mild descending aortic aneurysm, measured at a stable 4.7 cm over several years and single- vessel coronary artery disease with a patent LAD stent on a repeat cardiac catheterization 3 years ago. Serial left ventricular systolic function assessment has recorded level ventricle systolic function is lower limits of normal. Most recent echocardiogram was done at [facility] 2-3 months ago, ejection fraction was 45-50%. He presented to the emergency room at this time with this usual complaint of shortness of breath, EKG was atrial fibrillation with ventricular rate in the 130s. The ECG showed an old anterior myocardial infarction, unchanged from his baseline. pCXR showed mild pulmonary vascular congestion. Acute hypoxemic respiratory failure - Patient was intubated and extubated on 08/29/17 - Patient is saturating well on room air Ileus - Patient was initially on TPN. - Resolved - Patient is currently on cardiac and carb consistent diet Toxic metabolic encephalopathy - Resolved, alert and oriented - Supportive care Acute on chronic diastolic heart failure - Echo 04/2017 at [facility] - LVEF 45-50%, moderate RV dysfunction, RVSP 49 mm Hg and dilated IVC - Cardiology following, recommended conservative cardiac management Permanent atrial fibrillation with RVR - Continue BB and xarelto - Cardiology following. Sepsis - Resolved Complicated UTI with urinary retention. - Resolved -08/24/17 SP cath was placed -08/27/17 CT abd showed free air intraperitoneal, SP cath, high density material in the urinary bladder, prominent prostate and bilateral renal calculi. -08/27/17 taken to the OR for cysto, evacuation of clots and merida placement by due to acute retention and exlap with evacuation of large amount of blood 2 L from abdominal cavity by Surgery. No bowel perforation History of CAD s/p PCI to LAD (2011) low salt diet and medical management History of ascending aortic aneurysm measuring [address] 03/2016 Chronic DVT - Was on xarelto Acute renal failure Etiology likely secondary to Sepsis/ATN Resolved. Nephrology following. Systemic Hypertension Urinary retention - on merida catheter Bipolar disorder - Psych is following - Resumed home medications Patient discharged to SNF. Appropriate medications were given at the time of discharge. patients questions and concerns were addressed at the bedside. Disposition: [id number] HOME UNDER HOME [facility] Time spent for discharge: 45 minutes - Discharge Diagnoses (1) Atrial fibrillation with RVR Status: Acute (2) Respiratory failure Status: Acute (3) Shock Status: Acute (4) Acute abdominal pain Status: Acute (5) Altered mental status Status: Acute Comment: resolved (6) Chronic atrial fibrillation Status: Acute (7) Cystitis Status: Acute (8) Discharge planning issues Status: Acute Comment: discharged today to personal nursing home. (9) Bipolar disorder Status: Chronic Qualifiers: Active/Remission status: remission status unspecified Qualified Code(s): F31.9 - Bipolar disorder, unspecified (10) Coronary artery disease Status: Chronic Qualifiers: Coronary Disease-Associated Artery/Lesion type: [place] artery Associated angina: without angina (11) History of CVA (cerebrovascular accident) without residual deficits Status: Chronic Core Measure Documentation - Palliative Care Palliative Care/ Comfort Measures: Not Applicable - Core Measures Any of the following diagnoses?: none Exam - Physical Exam Narrative exam: Not in cardiopulmonary distress. The patient appeared well nourished and normally developed. Vital signs as documented. Head exam is unremarkable. No scleral icterus . Neck is without jugular venous distension, thyromegaly, or carotid bruits. Lungs are clear to auscultation. Cardiac exam reveals regular rate and Rhythm. First and second heart sounds normal. No murmurs, rubs or gallops. Abdominal exam soft and nontender, normoactive bowel sounds . Extremities are nonedematous and both femoral and pedal pulses are normal. 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 patient was continuously moaning. - Constitutional Vitals: Temp Pulse Resp BP Pulse Ox 97.6 F 129 H 20 126/58 100 09/11/17 08:06 09/11/17 14:06 09/11/17 08:06 09/11/17 08:06 09/11/17 08:06 Plan Activity: advance as tolerated Weight Bearing Status: Weight Bear as Tolerated Diet: low salt Additional Instructions: Follow at [facility] in 2-3 weeks Follow up with: PRIMARY CARE, [Primary Care Provider] - 7 Days Prescriptions: AtorvaSTATin [Lipitor] 20 mg PO QHS #30 tablet Bisacodyl [Dulcolax suppos] 10 mg LA QDAY PRN #30 supp.rect PRN Reason: Constipation unrelieved by MOM Digoxin [Lanoxin] 0.25 mg PO DAILY@1700 #30 tablet Divalproex ER [Depakote ER] 300 mg PO TID #90 tablet Losartan [Cozaar] 25 mg PO QDAY #30 tablet Metoprolol [Lopressor TAB] 50 mg PO TID #180 tablet Rivaroxaban [Xarelto] 20 mg PO QDAY #30 tablet Tamsulosin [Flomax] 0.4 mg PO DAILY #30 capsule
[2017-09-11] MEDS: XARELTO PO SCH (19:42)
[2017-09-11] MEDS ORDERED: TPN ADULT 2,400 ML IV SCH (20:00)
[2017-09-11] MEDS ORDERED: INTRALIPID 20% 250 ML IV SCH (20:00)
[2017-09-12] MEDS: LOPRESSOR IV SCH ×4 (02:30→16:43)
[2017-09-12] MEDS: ATIVAN IV PRN (06:13)
[2017-09-12 07:05] LABS: BUN/Creatinine Ratio 23; Blood Urea Nitrogen 16 mg/dL (9-20); Calcium 8.6 mg/dL (8.4-10.2); Hemolysis Index 21
--- NOTE | 2017-09-12 08:52 | Progress Note ---
Assessment and Plan Assessment and plan: Acute hypoxemic respiratory failure - Patient extubated on 08/29/17. Continue O2 to maintain sats. BiPAP as clinically indicated. Ileus - Cont TPN. NPO status. - Surgery following - Will check the result of small bowel series Toxic metabolic encephalopathy - Resolving - Supportive care - patient was moaning continuously Acute on chronic diastolic heart failure - Echo 04/2017 at [facility] - LVEF 45-50%, moderate RV dysfunction, RVSP 49 mm Hg and dilated IVC - Cardiology following Permanent atrial fibrillation with RVR - Continue Cardizem and metoprolol - Cardiology following. Sepsis - ID following - resolving Complicated UTI with urinary retention. -08/24/17 SP cath was placed -08/27/17 CT abd showed free air intraperitoneal, SP cath, high density material in the urinary bladder, prominent prostate and bilateral renal calculi. -08/27/17 taken to the OR for cysto, evacuation of clots and merida placement by due to acute retention and exlap with evacuation of large amount of blood 2 L from abdominal cavity by Surgery. No bowel perforation History of CAD s/p PCI to LAD (2011) low salt diet and medical management History of ascending aortic aneurysm measuring [address] 03/2016 Chronic DVT - Was on xarelto as an O/P Acute renal failure Etiology likely secondary to Sepsis/ATN Resolving. Nephrology following. Systemic Hypertension Urinary retention - Follow a cardiac cath in place, draining clean urine - Urology following Bipolar disorder - Psych is following Disposition - Pending LTAC placement. - Patient Problems (1) Atrial fibrillation with RVR Current Visit: Yes Status: Acute (2) Respiratory failure Current Visit: Yes Status: Acute (3) Shock Current Visit: Yes Status: Acute (4) Acute abdominal pain Current Visit: No Status: Acute (5) Altered mental status Current Visit: No Status: Acute (6) Chronic atrial fibrillation Current Visit: No Status: Acute (7) Cystitis Current Visit: No Status: Acute (8) Discharge planning issues Current Visit: No Status: Acute (9) Bipolar disorder Current Visit: No Status: Chronic Qualifiers: Active/Remission status: remission status unspecified Qualified Code(s): F31.9 - Bipolar disorder, unspecified (10) Coronary artery disease Current Visit: No Status: Chronic Qualifiers: Coronary Disease-Associated Artery/Lesion type: [place] artery Associated angina: without angina (11) History of CVA (cerebrovascular accident) without residual deficits Current Visit: No Status: Chronic History Interval history: Patient was seen and evaluated this morning, Patient was alert and oriented, but he was continuously moaning, per his daughter that is his baseline. Hospitalist Physical - Physical exam Narrative exam: Not in cardiopulmonary distress. NG tube in place. The patient appeared well nourished and normally developed. Vital signs as documented. Head exam is unremarkable. No scleral icterus . Neck is without jugular venous distension, thyromegaly, or carotid bruits. Lungs are clear to auscultation. Cardiac exam reveals regular rate and Rhythm. First and second heart sounds normal. No murmurs, rubs or gallops. Abdominal exam soft and nontender, normoactive bowel sounds . Extremities are nonedematous and both femoral and pedal pulses are normal. 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 patient was continuously moaning. - Constitutional Vitals: Temp Pulse Resp BP Pulse Ox 97.7 F 101 H 24 135/95 100 09/11/17 23:44 09/12/17 08:28 09/11/17 23:44 09/12/17 06:13 09/11/17 23:45 General appearance: Present: no acute distress Results - Labs CBC & Chem 7: 09/07/17 05:11 09/12/17 Unknown Labs: Laboratory Last Values WBC 10.9 K/mm3 (4.5-11.0) 09/07/17 05:11 RBC 3.45 M/mm3 (3.65-5.03) L 09/07/17 05:11 Hgb 8.2 gm/dl (11.8-15.2) L 09/07/17 05:11 Hct 25.1 % (35.5-45.6) L 09/07/17 05:11 MCV 73 fl (84-94) L 09/07/17 05:11 MCH 24 pg (28-32) L 09/07/17 05:11 MCHC 33 % (32-34) 09/07/17 05:11 RDW 23.2 % (13.2-15.2) H 09/07/17 05:11 Plt Count 194 K/mm3 (140-440) 09/07/17 05:11 Lymph % (Auto) 6.3 % (13.4-35.0) L 09/07/17 05:11 Sebastian % (Auto) 3.6 % (0.0-7.3) 09/07/17 05:11 Eos % (Auto) 2.9 % (0.0-4.3) 09/07/17 05:11 Baso % (Auto) 0.8 % (0.0-1.8) 09/07/17 05:11 Lymph # 0.7 K/mm3 (1.2-5.4) L 09/07/17 05:11 Sebastian # 0.4 K/mm3 (0.0-0.8) 09/07/17 05:11 Eos # 0.3 K/mm3 (0.0-0.4) 09/07/17 05:11 Baso # 0.1 K/mm3 (0.0-0.1) 09/07/17 05:11 Add Manual Diff Complete 09/01/17 07:02 Total Counted 100 09/01/17 07:02 Seg Neutrophils % 86.4 % (40.0-70.0) H 09/07/17 05:11 Seg Neuts % (Manual) 93.0 % (40.0-70.0) H 09/01/17 07:02 Band Neutrophils % 0 % 09/01/17 07:02 Lymphocytes % (Manual) 3.0 % (13.4-35.0) L 09/01/17 07:02 Reactive Lymphs % (Man) 0 % 09/01/17 07:02 Monocytes % (Manual) 2.0 % (0.0-7.3) 09/01/17 07:02 Eosinophils % (Manual) 2.0 % (0.0-4.3) 09/01/17 07:02 Basophils % (Manual) 0 % (0.0-1.8) 09/01/17 07:02 Metamyelocytes % 0 % 09/01/17 07:02 Myelocytes % 0 % 09/01/17 07:02 Promyelocytes % 0 % 09/01/17 07:02 Blast Cells % 0 % 09/01/17 07:02 Nucleated RBC % Not Reportable 09/01/17 07:02 Seg Neutrophils # 9.5 K/mm3 (1.8-7.7) H 09/07/17 05:11 Seg Neutrophils # Man 12.6 K/mm3 (1.8-7.7) H 09/01/17 07:02 Band Neutrophils # 0.0 K/mm3 09/01/17 07:02 Lymphocytes # (Manual) 0.4 K/mm3 (1.2-5.4) L 09/01/17 07:02 Abs React Lymphs (Man) 0.0 K/mm3 09/01/17 07:02 Monocytes # (Manual) 0.3 K/mm3 (0.0-0.8) 09/01/17 07:02 Eosinophils # (Manual) 0.3 K/mm3 (0.0-0.4) 09/01/17 07:02 Basophils # (Manual) 0.0 K/mm3 (0.0-0.1) 09/01/17 07:02 Metamyelocytes # 0.0 K/mm3 09/01/17 07:02 Myelocytes # 0.0 K/mm3 09/01/17 07:02 Promyelocytes # 0.0 K/mm3 09/01/17 07:02 Blast Cells # 0.0 K/mm3 09/01/17 07:02 WBC Morphology Not Reportable 09/01/17 07:02 Hypersegmented Neuts Not Reportable 09/01/17 07:02 Hyposegmented Neuts Not Reportable 09/01/17 07:02 Hypogranular Neuts Not Reportable 09/01/17 07:02 Smudge Cells Not Reportable 09/01/17 07:02 Toxic Granulation Not Reportable 09/01/17 07:02 Toxic Vacuolation Not Reportable 09/01/17 07:02 Dohle Bodies Not Reportable 09/01/17 07:02 Pelger-Huet Anomaly Not Reportable 09/01/17 07:02 Cande Rods Not Reportable 09/01/17 07:02 Platelet Estimate Cons 09/01/17 07:02 Clumped Platelets Not Reportable 09/01/17 07:02 Plt Clumps, EDTA Not Reportable 09/01/17 07:02 Large Platelets Not Reportable 09/01/17 07:02 Giant Platelets Not Reportable 09/01/17 07:02 Platelet Satelliting Not Reportable 09/01/17 07:02 Plt Morphology Comment Not Reportable 09/01/17 07:02 RBC Morphology Not Reportable 09/01/17 07:02 Dimorphic RBCs Not Reportable 09/01/17 07:02 Polychromasia Not Reportable 09/01/17 07:02 Hypochromasia 2+ 09/01/17 07:02 Poikilocytosis 2+ 09/01/17 07:02 Anisocytosis 2+ 09/01/17 07:02 Microcytosis Not Reportable 09/01/17 07:02 Macrocytosis Not Reportable 09/01/17 07:02 Spherocytes Not Reportable 09/01/17 07:02 Pappenheimer Bodies Not Reportable 09/01/17 07:02 Sickle Cells Not Reportable 09/01/17 07:02 Target Cells Few 09/01/17 07:02 Tear Drop Cells Not Reportable 09/01/17 07:02 Ovalocytes Not Reportable 09/01/17 07:02 Helmet Cells Not Reportable 09/01/17 07:02 [place] Bodies Not Reportable 09/01/17 07:02 Vincent Rings Not Reportable 09/01/17 07:02 James Cells 1+ 09/01/17 07:02 Bite Cells Not Reportable 09/01/17 07:02 Crenated Cell Not Reportable 09/01/17 07:02 Elliptocytes Not Reportable 09/01/17 07:02 Acanthocytes (Spur) 1+ 09/01/17 07:02 Rouleaux Not Reportable 09/01/17 07:02 Hemoglobin C Crystals Not Reportable 09/01/17 07:02 Schistocytes Few 09/01/17 07:02 Malaria parasites Not Reportable 09/01/17 07:02 Jonny Bodies Not Reportable 09/01/17 07:02 Hem Pathologist Commnt No 09/01/17 07:02 PT 22.7 Sec. (12.2-14.9) H 09/02/17 17:00 INR 1.87 (0.87-1.13) H 09/02/17 17:00 APTT 37.7 Sec. (24.2-36.6) H 09/02/17 17:00 POC ABG pH 7.435 (7.35-7.45) 08/29/17 10:58 POC ABG pCO2 34.8 (35-45) L 08/29/17 10:58 POC ABG pO2 93 (80-105) 08/29/17 10:58 POC ABG HCO3 23.4 08/29/17 10:58 POC ABG Total CO2 24 08/29/17 10:58 POC ABG O2 Sat 98 08/29/17 10:58 POC ABG Base Excess -1 08/29/17 10:58 FiO2 28 % 08/29/17 10:58 Sodium 136 mmol/L (137-145) L 09/12/17 Unknown Potassium 4.9 mmol/L (3.6-5.0) 09/12/17 Unknown Chloride 100.4 mmol/L (98-107) 09/12/17 Unknown Carbon Dioxide 24 mmol/L (22-30) 09/12/17 Unknown Anion Gap 17 mmol/L 09/12/17 Unknown BUN 16 mg/dL (9-20) 09/12/17 Unknown Creatinine 0.7 mg/dL (0.8-1.5) L 09/12/17 Unknown Estimated GFR > 60 ml/min 09/12/17 Unknown BUN/Creatinine Ratio 23 % 09/12/17 Unknown Glucose 114 mg/dL (75-100) H 09/12/17 Unknown POC Glucose 110 (70-105) H 09/12/17 06:00 Lactic Acid 1.80 mmol/L (0.7-2.0) 08/28/17 Unknown Calcium 8.6 mg/dL (8.4-10.2) 09/12/17 Unknown Phosphorus 3.30 mg/dL (2.5-4.5) 09/12/17 Unknown Magnesium 2.20 mg/dL (1.7-2.3) 09/12/17 Unknown Total Bilirubin 0.60 mg/dL (0.1-1.2) 09/09/17 07:17 AST 28 units/L (5-40) 09/09/17 07:17 ALT 14 units/L (7-56) 09/09/17 07:17 Alkaline Phosphatase 75 units/L (35-129) 09/09/17 07:17 Total Creatine Kinase 155 units/L (55-170) 08/23/17 10:56 CK-MB (CK-2) 4.4 ng/mL (0.0-4.0) H 08/23/17 10:56 CK-MB (CK-2) Rel Index 2.8 (0-4) 08/23/17 10:56 Troponin T 0.297 ng/mL (0.00-0.029) H* 09/02/17 17:00 C-Reactive Protein 38.40 mg/dL (0.00-1.30) H 08/29/17 20:45 NT-Pro-B Natriuret Pep 20186 pg/mL (0-900) H 08/23/17 02:54 Total Protein 5.9 g/dL (6.3-8.2) L 09/09/17 07:17 Albumin 2.2 g/dL (3.9-5) L 09/09/17 07:17 Albumin/Globulin Ratio 0.6 % 09/09/17 07:17 Triglycerides 69 mg/dL (2-149) 08/23/17 02:54 Cholesterol 125 mg/dL (50-199) 08/23/17 02:54 LDL Cholesterol Direct 77 mg/dL (50-130) 08/23/17 02:54 HDL Cholesterol 36 mg/dL (40-59) L 08/23/17 02:54 Cholesterol/HDL Ratio 3.47 % 08/23/17 02:54 Prostate Specific Ag 96.82 ng/mL (0.00-4.00) H 08/30/17 18:11 Urine Color Yellow (Yellow) 08/28/17 21:00 Urine Turbidity Clear (Clear) 08/28/17 21:00 Urine pH 5.0 (5.0-7.0) 08/28/17 21:00 Ur Specific [place] 1.005 (1.003-1.030) 08/28/17 21:00 Urine Protein <15 mg/dl mg/dL (Negative) 08/28/17 21:00 Urine Glucose (UA) Neg mg/dL (Negative) 08/28/17 21:00 Urine Ketones Neg mg/dL (Negative) 08/28/17 21:00 Urine Blood Lg (Negative) 08/28/17 21:00 Urine Nitrite Neg (Negative) 08/28/17 21:00 Urine Bilirubin Neg (Negative) 08/28/17 21:00 Urine Urobilinogen < 2.0 mg/dL (<2.0) 08/28/17 21:00 Ur Leukocyte Esterase Lg (Negative) 08/28/17 21:00 Urine WBC (Auto) 43.0 /HPF (0.0-6.0) H 08/28/17 21:00 Urine RBC (Auto) > 182.0 /HPF (0.0-6.0) 08/28/17 21:00 U Epithel Cells (Auto) < 1.0 /HPF (0-13.0) 08/28/17 21:00 Uric Acid Crystals 2+ 08/28/17 21:00 Urine Mucus Few /HPF 08/28/17 21:00 Miscellaneous Test See scanned report 09/02/17 17:05 Blood Type B POSITIVE 08/27/17 20:03 Antibody Screen Negative 08/27/17 20:03 Crossmatch See Detail 08/27/17 20:03
--- NOTE | 2017-09-12 09:39 | Fluoroscopy Report ---
SMALL BOWEL SERIES History: Small bowel obstruction. Findings: Patient Support Representative film of the abdomen demonstrates a few mildly dilated loops of small bowel in the upper abdomen. Portable radiographs of the abdomen were obtained out to 8 hours. Initial images again demonstrate a few mildly dilated loops of proximal small bowel measuring up to 4 cm. Mid and distal small bowel loops are decompressed and normal caliber. Transit time through the small bowel is delayed at approximately 5 hours. No fluoroscopic images were obtained due to the immobility of the patient. The 8 hour film demonstrates contrast agent in the colon and rectum. Impression: Transit time of the contrast agent through the small bowel loops is delayed at 5 hours. There are a few mildly dilated loops of proximal small bowel suggesting a low grade partial small bowel obstruction.
[2017-09-12] MEDS ORDERED: LANOXIN IV SCH (10:00)
--- NOTE | 2017-09-12 10:40 | Progress Note ---
Assessment and Plan Sepsis Acute SBO/Ileus Acute on chronic diastolic heart failure Echo 04/2017 at [facility] - LVEF 45-50% with moderate RV dysfunctioin Permanent atrial fibrillation on digoxin and metoprolol for rate control. History of CAD s/p PCI to LAD in 2011 History of ascending aortic aneurysm measuring [address] 03/2016 Chronic DVT on xarelto as an outpatient Chronic renal failure Systemic Hypertension Non-compliance Continue optimal rate control of atrial fibrillation. Subjective Date of service: 09/12/17 Principal diagnosis: afib with RVR and CHF excacerbation Interval history: No acute cardiac events. Objective Vital Signs Temp Pulse Pulse Resp BP BP Pulse Ox 09/12/17 09:36 100 09/12/17 08:28 101 H 09/12/17 06:13 115 H 135/95 09/12/17 02:30 68 110/60 09/11/17 23:45 100 H 100 09/11/17 23:44 97.7 F 24 123/85 09/11/17 22:14 110 H 131/82 09/11/17 22:00 121 H 110 H 09/11/17 20:11 100 09/11/17 19:42 98 H 09/11/17 19:41 98 H 09/11/17 19:40 97.6 F 65 24 131/82 100 09/11/17 17:20 97 09/11/17 17:15 97.8 F 58 L 22 98/60 100 09/11/17 14:06 129 H 09/11/17 14:05 129 H - Physical Examination General: No Apparent Distress HEENT: Positive: PERRL Cardiac: Positive: irregularly irregular - Labs and Meds Comprehensive Metabolic Panel 09/12/17 Range/Units Unknown Sodium 136 L (137-145) mmol/L Potassium 4.9 (3.6-5.0) mmol/L Chloride 100.4 (98-107) mmol/L Carbon Dioxide 24 (22-30) mmol/L BUN 16 (9-20) mg/dL Creatinine 0.7 L (0.8-1.5) mg/dL Glucose 114 H (75-100) mg/dL Calcium 8.6 (8.4-10.2) mg/dL
[2017-09-12] MEDS: PEPCID IV SCH ×2 (11:36→21:44)
[2017-09-12] MEDS: HALDOL IV PRN (14:36)
[2017-09-12] MEDS: XARELTO PO SCH (16:43)
[2017-09-12] MEDS ORDERED: TPN ADULT 2,400 ML IV SCH (20:00)
[2017-09-12] MEDS: LOPRESSOR PO SCH (21:40)
[2017-09-12] MEDS: DESYREL PO SCH (21:40)
[2017-09-12] MEDS: RisperDAL PO SCH (21:40)
[2017-09-12] MEDS: SODIUM CHLORIDE FLUSH SYRINGE 10 ML IV SCH (21:43)
[2017-09-12] MEDS ORDERED: RISPERIDONE 1.5 MG PO SCH (22:00)
[2017-09-13] MEDS: HALDOL IV PRN ×2 (02:15→23:45)
[2017-09-13] MEDS: SODIUM CHLORIDE FLUSH SYRINGE 10 ML IV SCH ×3 (05:31→23:36)
[2017-09-13] MEDS: LOPRESSOR IV SCH (05:35)
[2017-09-13] MEDS: LOPRESSOR PO SCH ×3 (05:57→23:35)
--- NOTE | 2017-09-13 07:23 | Progress Note ---
Assessment and Plan Sepsis Acute SBO/Ileus Acute on chronic diastolic heart failure Echo 04/2017 at [place] - LVEF 45-50% with moderate RV dysfunctioin Permanent atrial fibrillation on digoxin and metoprolol for rate control. History of CAD s/p PCI to LAD in 2011 History of ascending aortic aneurysm measuring [address] 03/2016 Chronic DVT on xarelto as an outpatient Chronic renal failure Systemic Hypertension Non-compliance Continue medical therapy for chronic atrial fibrillation. Otherwise, conservative cardiac management. Subjective Date of service: 09/13/17 Principal diagnosis: afib with RVR and CHF excacerbation Interval history: Patient has no cardiac complaints. Bilateral wrists restraints are in place. Objective Vital Signs Temp Pulse Resp BP BP Pulse Ox 09/13/17 01:17 98.9 F 84 18 129/60 100 09/12/17 21:40 116 H 127/99 09/12/17 20:40 98.2 F 116 H 20 127/99 100 09/12/17 11:35 131 H 09/12/17 10:00 26 H 96 09/12/17 09:36 100 09/12/17 08:28 101 H - Physical Examination General: No Apparent Distress HEENT: Positive: PERRL Cardiac: Positive: irregularly irregular Neuro: Positive: Weakness Extremities: Absent: edema
[2017-09-13] MEDS: COZAAR PO SCH (09:00)
--- NOTE | 2017-09-13 11:09 | XRay Report ---
AP ABDOMEN: HISTORY: Ileus. There is residual oral contrast in the distal colon and rectum from recent small bowel series. The colon is normal caliber. Small bowel dilatation has decreased by approximately 25% since the exam 4 days ago. Mild small bowel dilatation persists. Surgical drain in the pelvis is unchanged. No new findings are demonstrated. IMPRESSION: Mild improvement in the small bowel dilatation since 09/09/17.
[2017-09-13] MEDS: FLOMAX PO SCH (11:28)
[2017-09-13] MEDS: PEPCID IV SCH ×2 (11:29→23:35)
--- NOTE | 2017-09-13 14:26 | Progress Note ---
Assessment and Plan Assessment and plan: Acute hypoxemic respiratory failure - Patient extubated on 08/29/17. Continue O2 to maintain sats. BiPAP as clinically indicated. Ileus - Cont TPN. NPO status. - Surgery following - Will check the result of small bowel series Toxic metabolic encephalopathy - Resolving - Supportive care Acute on chronic diastolic heart failure - Echo 04/2017 at [place] - LVEF 45-50%, moderate RV dysfunction, RVSP 49 mm Hg and dilated IVC - Cardiology following Permanent atrial fibrillation with RVR - Continue BB and xarelto - Cardiology following. Sepsis - Resolved Complicated UTI with urinary retention. - Resolved -08/24/17 SP cath was placed -08/27/17 CT abd showed free air intraperitoneal, SP cath, high density material in the urinary bladder, prominent prostate and bilateral renal calculi. -08/27/17 taken to the OR for cysto, evacuation of clots and merida placement by due to acute retention and exlap with evacuation of large amount of blood 2 L from abdominal cavity by Surgery. No bowel perforation History of CAD s/p PCI to LAD (2011) low salt diet and medical management History of ascending aortic aneurysm measuring [address] 03/2016 Chronic DVT - Was on xarelto Acute renal failure Etiology likely secondary to Sepsis/ATN Resolved. Nephrology following. Systemic Hypertension Urinary retention - Follow a cardiac cath in place, draining clean urine - Urology following Bipolar disorder - Psych is following Disposition - Patient is currently on po feeding and once his diet advanced he can go to SNF. - Patient Problems (1) Atrial fibrillation with RVR Current Visit: Yes Status: Acute (2) Respiratory failure Current Visit: Yes Status: Acute (3) Shock Current Visit: Yes Status: Acute (4) Acute abdominal pain Current Visit: No Status: Acute (5) Altered mental status Current Visit: No Status: Acute (6) Chronic atrial fibrillation Current Visit: No Status: Acute (7) Cystitis Current Visit: No Status: Acute (8) Discharge planning issues Current Visit: No Status: Acute (9) Bipolar disorder Current Visit: No Status: Chronic Qualifiers: Active/Remission status: remission status unspecified Qualified Code(s): F31.9 - Bipolar disorder, unspecified (10) Coronary artery disease Current Visit: No Status: Chronic Qualifiers: Coronary Disease-Associated Artery/Lesion type: [place] artery Associated angina: without angina (11) History of CVA (cerebrovascular accident) without residual deficits Current Visit: No Status: Chronic History Interval history: Patient was seen and evaluated this morning, Patient was alert and oriented, patient was calm and cooperative. Patient has 2 bowel movements. Hospitalist Physical - Physical exam Narrative exam: Not in cardiopulmonary distress. The patient appeared well nourished and normally developed. Vital signs as documented. Head exam is unremarkable. No scleral icterus . Neck is without jugular venous distension, thyromegaly, or carotid bruits. Lungs are clear to auscultation. Cardiac exam reveals regular rate and Rhythm. First and second heart sounds normal. No murmurs, rubs or gallops. Abdominal exam soft and nontender, normoactive bowel sounds . Extremities are nonedematous and both femoral and pedal pulses are normal. CONTENT EDITOR: Alert and oriented 3. patient was continuously moaning. - Constitutional Vitals: Temp Pulse Resp BP Pulse Ox 97.8 F 65 22 117/53 95 09/13/17 07:58 09/13/17 07:58 09/13/17 07:58 09/13/17 07:58 09/13/17 09:01 General appearance: Present: no acute distress Results - Labs CBC & Chem 7: 09/07/17 05:11 09/12/17 Unknown Labs: Laboratory Last Values WBC 10.9 K/mm3 (4.5-11.0) 09/07/17 05:11 RBC 3.45 M/mm3 (3.65-5.03) L 09/07/17 05:11 Hgb 8.2 gm/dl (11.8-15.2) L 09/07/17 05:11 Hct 25.1 % (35.5-45.6) L 09/07/17 05:11 MCV 73 fl (84-94) L 09/07/17 05:11 MCH 24 pg (28-32) L 09/07/17 05:11 MCHC 33 % (32-34) 09/07/17 05:11 RDW 23.2 % (13.2-15.2) H 09/07/17 05:11 Plt Count 194 K/mm3 (140-440) 09/07/17 05:11 Lymph % (Auto) 6.3 % (13.4-35.0) L 09/07/17 05:11 [place] % (Auto) 3.6 % (0.0-7.3) 09/07/17 05:11 Eos % (Auto) 2.9 % (0.0-4.3) 09/07/17 05:11 Baso % (Auto) 0.8 % (0.0-1.8) 09/07/17 05:11 Lymph # 0.7 K/mm3 (1.2-5.4) L 09/07/17 05:11 [place] # 0.4 K/mm3 (0.0-0.8) 09/07/17 05:11 Eos # 0.3 K/mm3 (0.0-0.4) 09/07/17 05:11 Baso # 0.1 K/mm3 (0.0-0.1) 09/07/17 05:11 Add Manual Diff Complete 09/01/17 07:02 Total Counted 100 09/01/17 07:02 Seg Neutrophils % 86.4 % (40.0-70.0) H 09/07/17 05:11 Seg Neuts % (Manual) 93.0 % (40.0-70.0) H 09/01/17 07:02 Band Neutrophils % 0 % 09/01/17 07:02 Lymphocytes % (Manual) 3.0 % (13.4-35.0) L 09/01/17 07:02 Reactive Lymphs % (Man) 0 % 09/01/17 07:02 Monocytes % (Manual) 2.0 % (0.0-7.3) 09/01/17 07:02 Eosinophils % (Manual) 2.0 % (0.0-4.3) 09/01/17 07:02 Basophils % (Manual) 0 % (0.0-1.8) 09/01/17 07:02 Metamyelocytes % 0 % 09/01/17 07:02 Myelocytes % 0 % 09/01/17 07:02 Promyelocytes % 0 % 09/01/17 07:02 Blast Cells % 0 % 09/01/17 07:02 Nucleated RBC % Not Reportable 09/01/17 07:02 Seg Neutrophils # 9.5 K/mm3 (1.8-7.7) H 09/07/17 05:11 Seg Neutrophils # Man 12.6 K/mm3 (1.8-7.7) H 09/01/17 07:02 Band Neutrophils # 0.0 K/mm3 09/01/17 07:02 Lymphocytes # (Manual) 0.4 K/mm3 (1.2-5.4) L 09/01/17 07:02 Abs React Lymphs (Man) 0.0 K/mm3 09/01/17 07:02 Monocytes # (Manual) 0.3 K/mm3 (0.0-0.8) 09/01/17 07:02 Eosinophils # (Manual) 0.3 K/mm3 (0.0-0.4) 09/01/17 07:02 Basophils # (Manual) 0.0 K/mm3 (0.0-0.1) 09/01/17 07:02 Metamyelocytes # 0.0 K/mm3 09/01/17 07:02 Myelocytes # 0.0 K/mm3 09/01/17 07:02 Promyelocytes # 0.0 K/mm3 09/01/17 07:02 Blast Cells # 0.0 K/mm3 09/01/17 07:02 WBC Morphology Not Reportable 09/01/17 07:02 Hypersegmented Neuts Not Reportable 09/01/17 07:02 Hyposegmented Neuts Not Reportable 09/01/17 07:02 Hypogranular Neuts Not Reportable 09/01/17 07:02 Smudge Cells Not Reportable 09/01/17 07:02 Toxic Granulation Not Reportable 09/01/17 07:02 Toxic Vacuolation Not Reportable 09/01/17 07:02 Dohle Bodies Not Reportable 09/01/17 07:02 Pelger-Huet Anomaly Not Reportable 09/01/17 07:02 Cande Rods Not Reportable 09/01/17 07:02 Platelet Estimate Cons 09/01/17 07:02 Clumped Platelets Not Reportable 09/01/17 07:02 Plt Clumps, EDTA Not Reportable 09/01/17 07:02 Large Platelets Not Reportable 09/01/17 07:02 Giant Platelets Not Reportable 09/01/17 07:02 Platelet Satelliting Not Reportable 09/01/17 07:02 Plt Morphology Comment Not Reportable 09/01/17 07:02 RBC Morphology Not Reportable 09/01/17 07:02 Dimorphic RBCs Not Reportable 09/01/17 07:02 Polychromasia Not Reportable 09/01/17 07:02 Hypochromasia 2+ 09/01/17 07:02 Poikilocytosis 2+ 09/01/17 07:02 Anisocytosis 2+ 09/01/17 07:02 Microcytosis Not Reportable 09/01/17 07:02 Macrocytosis Not Reportable 09/01/17 07:02 Spherocytes Not Reportable 09/01/17 07:02 Pappenheimer Bodies Not Reportable 09/01/17 07:02 Sickle Cells Not Reportable 09/01/17 07:02 Target Cells Few 09/01/17 07:02 Tear Drop Cells Not Reportable 09/01/17 07:02 Ovalocytes Not Reportable 09/01/17 07:02 Helmet Cells Not Reportable 09/01/17 07:02 Morrell-[place] Bodies Not Reportable 09/01/17 07:02 [place] Rings Not Reportable 09/01/17 07:02 [place] Cells 1+ 09/01/17 07:02 Bite Cells Not Reportable 09/01/17 07:02 Crenated Cell Not Reportable 09/01/17 07:02 Elliptocytes Not Reportable 09/01/17 07:02 Acanthocytes (Spur) 1+ 09/01/17 07:02 Rouleaux Not Reportable 09/01/17 07:02 Hemoglobin C Crystals Not Reportable 09/01/17 07:02 Schistocytes Few 09/01/17 07:02 Malaria parasites Not Reportable 09/01/17 07:02 Jonny Bodies Not Reportable 09/01/17 07:02 Hem Pathologist Commnt No 09/01/17 07:02 PT 22.7 Sec. (12.2-14.9) H 09/02/17 17:00 INR 1.87 (0.87-1.13) H 09/02/17 17:00 APTT 37.7 Sec. (24.2-36.6) H 09/02/17 17:00 POC ABG pH 7.435 (7.35-7.45) 08/29/17 10:58 POC ABG pCO2 34.8 (35-45) L 08/29/17 10:58 POC ABG pO2 93 (80-105) 08/29/17 10:58 POC ABG HCO3 23.4 08/29/17 10:58 POC ABG Total CO2 24 08/29/17 10:58 POC ABG O2 Sat 98 08/29/17 10:58 POC ABG Base Excess -1 08/29/17 10:58 FiO2 28 % 08/29/17 10:58 Sodium 136 mmol/L (137-145) L 09/12/17 Unknown Potassium 4.9 mmol/L (3.6-5.0) 09/12/17 Unknown Chloride 100.4 mmol/L (98-107) 09/12/17 Unknown Carbon Dioxide 24 mmol/L (22-30) 09/12/17 Unknown Anion Gap 17 mmol/L 09/12/17 Unknown BUN 16 mg/dL (9-20) 09/12/17 Unknown Creatinine 0.7 mg/dL (0.8-1.5) L 09/12/17 Unknown Estimated GFR > 60 ml/min 09/12/17 Unknown BUN/Creatinine Ratio 23 % 09/12/17 Unknown Glucose 114 mg/dL (75-100) H 09/12/17 Unknown POC Glucose 118 (70-105) H 09/12/17 16:05 Lactic Acid 1.80 mmol/L (0.7-2.0) 08/28/17 Unknown Calcium 8.6 mg/dL (8.4-10.2) 09/12/17 Unknown Phosphorus 3.30 mg/dL (2.5-4.5) 09/12/17 Unknown Magnesium 2.20 mg/dL (1.7-2.3) 09/12/17 Unknown Total Bilirubin 0.60 mg/dL (0.1-1.2) 09/09/17 07:17 AST 28 units/L (5-40) 09/09/17 07:17 ALT 14 units/L (7-56) 09/09/17 07:17 Alkaline Phosphatase 75 units/L (35-129) 09/09/17 07:17 Total Creatine Kinase 155 units/L (55-170) 08/23/17 10:56 CK-MB (CK-2) 4.4 ng/mL (0.0-4.0) H 08/23/17 10:56 CK-MB (CK-2) Rel Index 2.8 (0-4) 08/23/17 10:56 Troponin T 0.297 ng/mL (0.00-0.029) H* 09/02/17 17:00 C-Reactive Protein 38.40 mg/dL (0.00-1.30) H 08/29/17 20:45 NT-Pro-B Natriuret Pep 36983 pg/mL (0-900) H 08/23/17 02:54 Total Protein 5.9 g/dL (6.3-8.2) L 09/09/17 07:17 Albumin 2.2 g/dL (3.9-5) L 09/09/17 07:17 Albumin/Globulin Ratio 0.6 % 09/09/17 07:17 Triglycerides 69 mg/dL (2-149) 08/23/17 02:54 Cholesterol 125 mg/dL (50-199) 08/23/17 02:54 LDL Cholesterol Direct 77 mg/dL (50-130) 08/23/17 02:54 HDL Cholesterol 36 mg/dL (40-59) L 08/23/17 02:54 Cholesterol/HDL Ratio 3.47 % 08/23/17 02:54 Prostate Specific Ag 96.82 ng/mL (0.00-4.00) H 08/30/17 18:11 Urine Color Yellow (Yellow) 08/28/17 21:00 Urine Turbidity Clear (Clear) 08/28/17 21:00 Urine pH 5.0 (5.0-7.0) 08/28/17 21:00 Ur Specific [place] 1.005 (1.003-1.030) 08/28/17 21:00 Urine Protein <15 mg/dl mg/dL (Negative) 08/28/17 21:00 Urine Glucose (UA) Neg mg/dL (Negative) 08/28/17 21:00 Urine Ketones Neg mg/dL (Negative) 08/28/17 21:00 Urine Blood Lg (Negative) 08/28/17 21:00 Urine Nitrite Neg (Negative) 08/28/17 21:00 Urine Bilirubin Neg (Negative) 08/28/17 21:00 Urine Urobilinogen < 2.0 mg/dL (<2.0) 08/28/17 21:00 Ur Leukocyte Esterase Lg (Negative) 08/28/17 21:00 Urine WBC (Auto) 43.0 /HPF (0.0-6.0) H 08/28/17 21:00 Urine RBC (Auto) > 182.0 /HPF (0.0-6.0) 08/28/17 21:00 U Epithel Cells (Auto) < 1.0 /HPF (0-13.0) 08/28/17 21:00 Uric Acid Crystals 2+ 08/28/17 21:00 Urine Mucus Few /HPF 08/28/17 21:00 Miscellaneous Test See scanned report 09/02/17 17:05 Blood Type B POSITIVE 08/27/17 20:03 Antibody Screen Negative 08/27/17 20:03 Crossmatch See Detail 08/27/17 20:03
[2017-09-13] MEDS: XARELTO PO SCH (15:46)
[2017-09-13] MEDS: RisperDAL PO SCH ×2 (15:46→23:34)
[2017-09-13] MEDS: TYLENOL PO PRN (15:58)
[2017-09-13] MEDS: LANOXIN PO SCH (16:10)
[2017-09-13] MEDS ORDERED: TPN ADULT 2,400 ML IV SCH (20:00)
[2017-09-13] MEDS ORDERED: INTRALIPID 20% 250 ML IV SCH (20:00)
[2017-09-13] MEDS: DESYREL PO SCH (23:35)
[2017-09-14] MEDS: LOPRESSOR PO SCH ×3 (05:28→22:04)
[2017-09-14 05:36] LABS: BUN/Creatinine Ratio 18; Blood Urea Nitrogen 14 mg/dL (9-20); Calcium 8.3 mg/dL (8.4-10.2); Hemolysis Index 6
--- NOTE | 2017-09-14 08:13 | Progress Note ---
Assessment and Plan Assessment and plan: Acute hypoxemic respiratory failure - Patient extubated on 08/29/17. Continue O2 to maintain sats. BiPAP as clinically indicated. Ileus - Cont TPN. NPO status. - Surgery following - Will check the result of small bowel series Toxic metabolic encephalopathy - Resolving - Supportive care Acute on chronic diastolic heart failure - Echo 04/2017 at [place] - LVEF 45-50%, moderate RV dysfunction, RVSP 49 mm Hg and dilated IVC - Cardiology following Permanent atrial fibrillation with RVR - Continue BB and xarelto - Cardiology following. Sepsis - Resolved Complicated UTI with urinary retention. - Resolved -08/24/17 SP cath was placed -08/27/17 CT abd showed free air intraperitoneal, SP cath, high density material in the urinary bladder, prominent prostate and bilateral renal calculi. -08/27/17 taken to the OR for cysto, evacuation of clots and merida placement by due to acute retention and exlap with evacuation of large amount of blood 2 L from abdominal cavity by Surgery. No bowel perforation History of CAD s/p PCI to LAD (2011) low salt diet and medical management History of ascending aortic aneurysm measuring [address] 03/2016 Chronic DVT - Was on xarelto Acute renal failure Etiology likely secondary to Sepsis/ATN Resolved. Nephrology following. Systemic Hypertension Urinary retention - Follow a cardiac cath in place, draining clean urine - Urology following Bipolar disorder - Psych is following Disposition - Patient is currently on po feeding and once his diet advanced he can go to SNF. - Patient Problems (1) Atrial fibrillation with RVR Current Visit: Yes Status: Acute (2) Respiratory failure Current Visit: Yes Status: Acute (3) Shock Current Visit: Yes Status: Acute (4) Acute abdominal pain Current Visit: No Status: Acute (5) Altered mental status Current Visit: No Status: Acute (6) Chronic atrial fibrillation Current Visit: No Status: Acute (7) Cystitis Current Visit: No Status: Acute (8) Discharge planning issues Current Visit: No Status: Acute (9) Bipolar disorder Current Visit: No Status: Chronic Qualifiers: Active/Remission status: remission status unspecified Qualified Code(s): F31.9 - Bipolar disorder, unspecified (10) Coronary artery disease Current Visit: No Status: Chronic Qualifiers: Coronary Disease-Associated Artery/Lesion type: [place] artery Associated angina: without angina (11) History of CVA (cerebrovascular accident) without residual deficits Current Visit: No Status: Chronic History Interval history: Patient was seen and evaluated this morning, Patient was alert and oriented, patient was calm and cooperative. Patient has 2 bowel movements. Hospitalist Physical - Physical exam Narrative exam: Not in cardiopulmonary distress. The patient appeared well nourished and normally developed. Vital signs as documented. Head exam is unremarkable. No scleral icterus . Neck is without jugular venous distension, thyromegaly, or carotid bruits. Lungs are clear to auscultation. Cardiac exam reveals regular rate and Rhythm. First and second heart sounds normal. No murmurs, rubs or gallops. Abdominal exam soft and nontender, normoactive bowel sounds . Extremities are nonedematous and both femoral and pedal pulses are normal. PROJECT MANAGER RETAIL: Alert and oriented 3. patient was continuously moaning. - Constitutional Vitals: Temp Pulse Resp BP Pulse Ox 98.6 F 105 H 20 119/76 100 09/14/17 03:08 09/14/17 03:08 09/14/17 03:08 09/14/17 03:08 09/14/17 03:08 General appearance: Present: no acute distress Results - Labs CBC & Chem 7: 09/07/17 05:11 09/14/17 05:00 Labs: Laboratory Last Values WBC 10.9 K/mm3 (4.5-11.0) 09/07/17 05:11 RBC 3.45 M/mm3 (3.65-5.03) L 09/07/17 05:11 Hgb 8.2 gm/dl (11.8-15.2) L 09/07/17 05:11 Hct 25.1 % (35.5-45.6) L 09/07/17 05:11 MCV 73 fl (84-94) L 09/07/17 05:11 MCH 24 pg (28-32) L 09/07/17 05:11 MCHC 33 % (32-34) 09/07/17 05:11 RDW 23.2 % (13.2-15.2) H 09/07/17 05:11 Plt Count 194 K/mm3 (140-440) 09/07/17 05:11 Lymph % (Auto) 6.3 % (13.4-35.0) L 09/07/17 05:11 [place] % (Auto) 3.6 % (0.0-7.3) 09/07/17 05:11 Eos % (Auto) 2.9 % (0.0-4.3) 09/07/17 05:11 Baso % (Auto) 0.8 % (0.0-1.8) 09/07/17 05:11 Lymph # 0.7 K/mm3 (1.2-5.4) L 09/07/17 05:11 [place] # 0.4 K/mm3 (0.0-0.8) 09/07/17 05:11 Eos # 0.3 K/mm3 (0.0-0.4) 09/07/17 05:11 Baso # 0.1 K/mm3 (0.0-0.1) 09/07/17 05:11 Add Manual Diff Complete 09/01/17 07:02 Total Counted 100 09/01/17 07:02 Seg Neutrophils % 86.4 % (40.0-70.0) H 09/07/17 05:11 Seg Neuts % (Manual) 93.0 % (40.0-70.0) H 09/01/17 07:02 Band Neutrophils % 0 % 09/01/17 07:02 Lymphocytes % (Manual) 3.0 % (13.4-35.0) L 09/01/17 07:02 Reactive Lymphs % (Man) 0 % 09/01/17 07:02 Monocytes % (Manual) 2.0 % (0.0-7.3) 09/01/17 07:02 Eosinophils % (Manual) 2.0 % (0.0-4.3) 09/01/17 07:02 Basophils % (Manual) 0 % (0.0-1.8) 09/01/17 07:02 Metamyelocytes % 0 % 09/01/17 07:02 Myelocytes % 0 % 09/01/17 07:02 Promyelocytes % 0 % 09/01/17 07:02 Blast Cells % 0 % 09/01/17 07:02 Nucleated RBC % Not Reportable 09/01/17 07:02 Seg Neutrophils # 9.5 K/mm3 (1.8-7.7) H 09/07/17 05:11 Seg Neutrophils # Man 12.6 K/mm3 (1.8-7.7) H 09/01/17 07:02 Band Neutrophils # 0.0 K/mm3 09/01/17 07:02 Lymphocytes # (Manual) 0.4 K/mm3 (1.2-5.4) L 09/01/17 07:02 Abs React Lymphs (Man) 0.0 K/mm3 09/01/17 07:02 Monocytes # (Manual) 0.3 K/mm3 (0.0-0.8) 09/01/17 07:02 Eosinophils # (Manual) 0.3 K/mm3 (0.0-0.4) 09/01/17 07:02 Basophils # (Manual) 0.0 K/mm3 (0.0-0.1) 09/01/17 07:02 Metamyelocytes # 0.0 K/mm3 09/01/17 07:02 Myelocytes # 0.0 K/mm3 09/01/17 07:02 Promyelocytes # 0.0 K/mm3 09/01/17 07:02 Blast Cells # 0.0 K/mm3 09/01/17 07:02 WBC Morphology Not Reportable 09/01/17 07:02 Hypersegmented Neuts Not Reportable 09/01/17 07:02 Hyposegmented Neuts Not Reportable 09/01/17 07:02 Hypogranular Neuts Not Reportable 09/01/17 07:02 Smudge Cells Not Reportable 09/01/17 07:02 Toxic Granulation Not Reportable 09/01/17 07:02 Toxic Vacuolation Not Reportable 09/01/17 07:02 Dohle Bodies Not Reportable 09/01/17 07:02 Pelger-Huet Anomaly Not Reportable 09/01/17 07:02 Cande Rods Not Reportable 09/01/17 07:02 Platelet Estimate Cons 09/01/17 07:02 Clumped Platelets Not Reportable 09/01/17 07:02 Plt Clumps, EDTA Not Reportable 09/01/17 07:02 Large Platelets Not Reportable 09/01/17 07:02 Giant Platelets Not Reportable 09/01/17 07:02 Platelet Satelliting Not Reportable 09/01/17 07:02 Plt Morphology Comment Not Reportable 09/01/17 07:02 RBC Morphology Not Reportable 09/01/17 07:02 Dimorphic RBCs Not Reportable 09/01/17 07:02 Polychromasia Not Reportable 09/01/17 07:02 Hypochromasia 2+ 09/01/17 07:02 Poikilocytosis 2+ 09/01/17 07:02 Anisocytosis 2+ 09/01/17 07:02 Microcytosis Not Reportable 09/01/17 07:02 Macrocytosis Not Reportable 09/01/17 07:02 Spherocytes Not Reportable 09/01/17 07:02 Pappenheimer Bodies Not Reportable 09/01/17 07:02 Sickle Cells Not Reportable 09/01/17 07:02 Target Cells Few 09/01/17 07:02 Tear Drop Cells Not Reportable 09/01/17 07:02 Ovalocytes Not Reportable 09/01/17 07:02 Helmet Cells Not Reportable 09/01/17 07:02 Morrell-[place] Bodies Not Reportable 09/01/17 07:02 [place] Rings Not Reportable 09/01/17 07:02 [place] Cells 1+ 09/01/17 07:02 Bite Cells Not Reportable 09/01/17 07:02 Crenated Cell Not Reportable 09/01/17 07:02 Elliptocytes Not Reportable 09/01/17 07:02 Acanthocytes (Spur) 1+ 09/01/17 07:02 Rouleaux Not Reportable 09/01/17 07:02 Hemoglobin C Crystals Not Reportable 09/01/17 07:02 Schistocytes Few 09/01/17 07:02 Malaria parasites Not Reportable 09/01/17 07:02 Jonny Bodies Not Reportable 09/01/17 07:02 Hem Pathologist Commnt No 09/01/17 07:02 PT 22.7 Sec. (12.2-14.9) H 09/02/17 17:00 INR 1.87 (0.87-1.13) H 09/02/17 17:00 APTT 37.7 Sec. (24.2-36.6) H 09/02/17 17:00 POC ABG pH 7.435 (7.35-7.45) 08/29/17 10:58 POC ABG pCO2 34.8 (35-45) L 08/29/17 10:58 POC ABG pO2 93 (80-105) 08/29/17 10:58 POC ABG HCO3 23.4 08/29/17 10:58 POC ABG Total CO2 24 08/29/17 10:58 POC ABG O2 Sat 98 08/29/17 10:58 POC ABG Base Excess -1 08/29/17 10:58 FiO2 28 % 08/29/17 10:58 Sodium 138 mmol/L (137-145) 09/14/17 05:00 Potassium 4.3 mmol/L (3.6-5.0) 09/14/17 05:00 Chloride 101.4 mmol/L (98-107) 09/14/17 05:00 Carbon Dioxide 27 mmol/L (22-30) 09/14/17 05:00 Anion Gap 14 mmol/L 09/14/17 05:00 BUN 14 mg/dL (9-20) 09/14/17 05:00 Creatinine 0.8 mg/dL (0.8-1.5) 09/14/17 05:00 Estimated GFR > 60 ml/min 09/14/17 05:00 BUN/Creatinine Ratio 18 % 09/14/17 05:00 Glucose 111 mg/dL (75-100) H 09/14/17 05:00 POC Glucose 126 (70-105) H 09/14/17 05:45 Lactic Acid 1.80 mmol/L (0.7-2.0) 08/28/17 Unknown Calcium 8.3 mg/dL (8.4-10.2) L 09/14/17 05:00 Phosphorus 3.30 mg/dL (2.5-4.5) 09/12/17 Unknown Magnesium 2.20 mg/dL (1.7-2.3) 09/12/17 Unknown Total Bilirubin 0.60 mg/dL (0.1-1.2) 09/09/17 07:17 AST 28 units/L (5-40) 09/09/17 07:17 ALT 14 units/L (7-56) 09/09/17 07:17 Alkaline Phosphatase 75 units/L (35-129) 09/09/17 07:17 Total Creatine Kinase 155 units/L (55-170) 08/23/17 10:56 CK-MB (CK-2) 4.4 ng/mL (0.0-4.0) H 08/23/17 10:56 CK-MB (CK-2) Rel Index 2.8 (0-4) 08/23/17 10:56 Troponin T 0.297 ng/mL (0.00-0.029) H* 09/02/17 17:00 C-Reactive Protein 38.40 mg/dL (0.00-1.30) H 08/29/17 20:45 NT-Pro-B Natriuret Pep 87168 pg/mL (0-900) H 08/23/17 02:54 Total Protein 5.9 g/dL (6.3-8.2) L 09/09/17 07:17 Albumin 2.2 g/dL (3.9-5) L 09/09/17 07:17 Albumin/Globulin Ratio 0.6 % 09/09/17 07:17 Triglycerides 69 mg/dL (2-149) 08/23/17 02:54 Cholesterol 125 mg/dL (50-199) 08/23/17 02:54 LDL Cholesterol Direct 77 mg/dL (50-130) 08/23/17 02:54 HDL Cholesterol 36 mg/dL (40-59) L 08/23/17 02:54 Cholesterol/HDL Ratio 3.47 % 08/23/17 02:54 Prostate Specific Ag 96.82 ng/mL (0.00-4.00) H 08/30/17 18:11 Urine Color Yellow (Yellow) 08/28/17 21:00 Urine Turbidity Clear (Clear) 08/28/17 21:00 Urine pH 5.0 (5.0-7.0) 08/28/17 21:00 Ur Specific [place] 1.005 (1.003-1.030) 08/28/17 21:00 Urine Protein <15 mg/dl mg/dL (Negative) 08/28/17 21:00 Urine Glucose (UA) Neg mg/dL (Negative) 08/28/17 21:00 Urine Ketones Neg mg/dL (Negative) 08/28/17 21:00 Urine Blood Lg (Negative) 08/28/17 21:00 Urine Nitrite Neg (Negative) 08/28/17 21:00 Urine Bilirubin Neg (Negative) 08/28/17 21:00 Urine Urobilinogen < 2.0 mg/dL (<2.0) 08/28/17 21:00 Ur Leukocyte Esterase Lg (Negative) 08/28/17 21:00 Urine WBC (Auto) 43.0 /HPF (0.0-6.0) H 08/28/17 21:00 Urine RBC (Auto) > 182.0 /HPF (0.0-6.0) 08/28/17 21:00 U Epithel Cells (Auto) < 1.0 /HPF (0-13.0) 08/28/17 21:00 Uric Acid Crystals 2+ 08/28/17 21:00 Urine Mucus Few /HPF 08/28/17 21:00 Miscellaneous Test See scanned report 09/02/17 17:05 Blood Type B POSITIVE 08/27/17 20:03 Antibody Screen Negative 08/27/17 20:03 Crossmatch See Detail 08/27/17 20:03
[2017-09-14] MEDS: FLOMAX PO SCH (11:18)
[2017-09-14] MEDS: COZAAR PO SCH (11:19)
[2017-09-14] MEDS: PEPCID PO SCH ×2 (11:19→22:05)
[2017-09-14] MEDS: SODIUM CHLORIDE FLUSH SYRINGE 10 ML IV SCH ×2 (11:19→22:08)
[2017-09-14] MEDS: XARELTO PO SCH (11:22)
--- NOTE | 2017-09-14 12:32 | Progress Note ---
Assessment and Plan Assessment and plan: Acute hypoxemic respiratory failure - Patient extubated on 08/29/17. Continue O2 to maintain sats. - Patient is saturating well Ileus - Resolved, Patient started with PO feeding and will DC TPN once the patient oral intake is adequate. Toxic metabolic encephalopathy - Resolving - Supportive care Acute on chronic diastolic heart failure - Echo 04/2017 at [place] - LVEF 45-50%, moderate RV dysfunction, RVSP 49 mm Hg and dilated IVC - Cardiology following Permanent atrial fibrillation with RVR - Continue BB and xarelto - Cardiology following. Sepsis - Resolved Complicated UTI with urinary retention. - Resolved -08/24/17 SP cath was placed -08/27/17 CT abd showed free air intraperitoneal, SP cath, high density material in the urinary bladder, prominent prostate and bilateral renal calculi. -08/27/17 taken to the OR for cysto, evacuation of clots and merida placement by due to acute retention and exlap with evacuation of large amount of blood 2 L from abdominal cavity by Surgery. No bowel perforation History of CAD s/p PCI to LAD (2011) low salt diet and medical management History of ascending aortic aneurysm measuring [address] 03/2016 Chronic DVT - Was on xarelto Acute renal failure Etiology likely secondary to Sepsis/ATN Resolved. Nephrology following. Systemic Hypertension Urinary retention - on catheter Bipolar disorder - Psych is following - Resumed home medications Disposition - Patient is currently on po feeding and once his diet advanced he can go to SNF. - Patient Problems (1) Atrial fibrillation with RVR Current Visit: Yes Status: Acute (2) Respiratory failure Current Visit: Yes Status: Acute (3) Shock Current Visit: Yes Status: Acute (4) Acute abdominal pain Current Visit: No Status: Acute (5) Altered mental status Current Visit: No Status: Acute (6) Chronic atrial fibrillation Current Visit: No Status: Acute (7) Cystitis Current Visit: No Status: Acute (8) Discharge planning issues Current Visit: No Status: Acute (9) Bipolar disorder Current Visit: No Status: Chronic Qualifiers: Active/Remission status: remission status unspecified Qualified Code(s): F31.9 - Bipolar disorder, unspecified (10) Coronary artery disease Current Visit: No Status: Chronic Qualifiers: Coronary Disease-Associated Artery/Lesion type: [place] artery Associated angina: without angina (11) History of CVA (cerebrovascular accident) without residual deficits Current Visit: No Status: Chronic History Interval history: Patient was seen and evaluated this morning, Patient was alert and oriented, patient was resting comfortably. Hospitalist Physical - Physical exam Narrative exam: Not in cardiopulmonary distress. The patient appeared well nourished and normally developed. Vital signs as documented. Head exam is unremarkable. No scleral icterus . Neck is without jugular venous distension, thyromegaly, or carotid bruits. Lungs are clear to auscultation. Cardiac exam reveals regular rate and Rhythm. First and second heart sounds normal. No murmurs, rubs or gallops. Abdominal exam soft and nontender, normoactive bowel sounds . Extremities are nonedematous and both femoral and pedal pulses are normal. 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 - Constitutional Vitals: Temp Pulse Resp BP Pulse Ox 98.6 F 77 20 131/58 96 09/14/17 07:37 09/14/17 07:37 09/14/17 07:37 09/14/17 07:37 09/14/17 07:37 General appearance: Present: no acute distress Results - Labs CBC & Chem 7: 09/07/17 05:11 09/14/17 05:00 Labs: Laboratory Last Values WBC 10.9 K/mm3 (4.5-11.0) 09/07/17 05:11 RBC 3.45 M/mm3 (3.65-5.03) L 09/07/17 05:11 Hgb 8.2 gm/dl (11.8-15.2) L 09/07/17 05:11 Hct 25.1 % (35.5-45.6) L 09/07/17 05:11 MCV 73 fl (84-94) L 09/07/17 05:11 MCH 24 pg (28-32) L 09/07/17 05:11 MCHC 33 % (32-34) 09/07/17 05:11 RDW 23.2 % (13.2-15.2) H 09/07/17 05:11 Plt Count 194 K/mm3 (140-440) 09/07/17 05:11 Lymph % (Auto) 6.3 % (13.4-35.0) L 09/07/17 05:11 [place] % (Auto) 3.6 % (0.0-7.3) 09/07/17 05:11 Eos % (Auto) 2.9 % (0.0-4.3) 09/07/17 05:11 Baso % (Auto) 0.8 % (0.0-1.8) 09/07/17 05:11 Lymph # 0.7 K/mm3 (1.2-5.4) L 09/07/17 05:11 [place] # 0.4 K/mm3 (0.0-0.8) 09/07/17 05:11 Eos # 0.3 K/mm3 (0.0-0.4) 09/07/17 05:11 Baso # 0.1 K/mm3 (0.0-0.1) 09/07/17 05:11 Add Manual Diff Complete 09/01/17 07:02 Total Counted 100 09/01/17 07:02 Seg Neutrophils % 86.4 % (40.0-70.0) H 09/07/17 05:11 Seg Neuts % (Manual) 93.0 % (40.0-70.0) H 09/01/17 07:02 Band Neutrophils % 0 % 09/01/17 07:02 Lymphocytes % (Manual) 3.0 % (13.4-35.0) L 09/01/17 07:02 Reactive Lymphs % (Man) 0 % 09/01/17 07:02 Monocytes % (Manual) 2.0 % (0.0-7.3) 09/01/17 07:02 Eosinophils % (Manual) 2.0 % (0.0-4.3) 09/01/17 07:02 Basophils % (Manual) 0 % (0.0-1.8) 09/01/17 07:02 Metamyelocytes % 0 % 09/01/17 07:02 Myelocytes % 0 % 09/01/17 07:02 Promyelocytes % 0 % 09/01/17 07:02 Blast Cells % 0 % 09/01/17 07:02 Nucleated RBC % Not Reportable 09/01/17 07:02 Seg Neutrophils # 9.5 K/mm3 (1.8-7.7) H 09/07/17 05:11 Seg Neutrophils # Man 12.6 K/mm3 (1.8-7.7) H 09/01/17 07:02 Band Neutrophils # 0.0 K/mm3 07/13/18 07:02 Lymphocytes # (Manual) 0.4 K/mm3 (1.2-5.4) L 09/01/17 07:02 Abs React Lymphs (Man) 0.0 K/mm3 09/01/17 07:02 Monocytes # (Manual) 0.3 K/mm3 (0.0-0.8) 09/01/17 07:02 Eosinophils # (Manual) 0.3 K/mm3 (0.0-0.4) 09/01/17 07:02 Basophils # (Manual) 0.0 K/mm3 (0.0-0.1) 09/01/17 07:02 Metamyelocytes # 0.0 K/mm3 09/01/17 07:02 Myelocytes # 0.0 K/mm3 09/01/17 07:02 Promyelocytes # 0.0 K/mm3 09/01/17 07:02 Blast Cells # 0.0 K/mm3 09/01/17 07:02 WBC Morphology Not Reportable 09/01/17 07:02 Hypersegmented Neuts Not Reportable 09/01/17 07:02 Hyposegmented Neuts Not Reportable 09/01/17 07:02 Hypogranular Neuts Not Reportable 09/01/17 07:02 Smudge Cells Not Reportable 09/01/17 07:02 Toxic Granulation Not Reportable 09/01/17 07:02 Toxic Vacuolation Not Reportable 09/01/17 07:02 Dohle Bodies Not Reportable 09/01/17 07:02 Pelger-Huet Anomaly Not Reportable 09/01/17 07:02 Cande Rods Not Reportable 09/01/17 07:02 Platelet Estimate Cons 09/01/17 07:02 Clumped Platelets Not Reportable 09/01/17 07:02 Plt Clumps, EDTA Not Reportable 09/01/17 07:02 Large Platelets Not Reportable 09/01/17 07:02 Giant Platelets Not Reportable 09/01/17 07:02 Platelet Satelliting Not Reportable 09/01/17 07:02 Plt Morphology Comment Not Reportable 09/01/17 07:02 RBC Morphology Not Reportable 09/01/17 07:02 Dimorphic RBCs Not Reportable 09/01/17 07:02 Polychromasia Not Reportable 09/01/17 07:02 Hypochromasia 2+ 09/01/17 07:02 Poikilocytosis 2+ 09/01/17 07:02 Anisocytosis 2+ 09/01/17 07:02 Microcytosis Not Reportable 09/01/17 07:02 Macrocytosis Not Reportable 09/01/17 07:02 Spherocytes Not Reportable 09/01/17 07:02 Pappenheimer Bodies Not Reportable 09/01/17 07:02 Sickle Cells Not Reportable 09/01/17 07:02 Target Cells Few 09/01/17 07:02 Tear Drop Cells Not Reportable 09/01/17 07:02 Ovalocytes Not Reportable 09/01/17 07:02 Helmet Cells Not Reportable 09/01/17 07:02 Morrell-Artas Bodies Not Reportable 09/01/17 07:02 [place] Rings Not Reportable 09/01/17 07:02 [place] Cells 1+ 09/01/17 07:02 Bite Cells Not Reportable 09/01/17 07:02 Crenated Cell Not Reportable 09/01/17 07:02 Elliptocytes Not Reportable 09/01/17 07:02 Acanthocytes (Spur) 1+ 09/01/17 07:02 Rouleaux Not Reportable 09/01/17 07:02 Hemoglobin C Crystals Not Reportable 09/01/17 07:02 Schistocytes Few 09/01/17 07:02 Malaria parasites Not Reportable 09/01/17 07:02 Jonny Bodies Not Reportable 09/01/17 07:02 Hem Pathologist Commnt No 09/01/17 07:02 PT 22.7 Sec. (12.2-14.9) H 09/02/17 17:00 INR 1.87 (0.87-1.13) H 09/02/17 17:00 APTT 37.7 Sec. (24.2-36.6) H 09/02/17 17:00 POC ABG pH 7.435 (7.35-7.45) 08/29/17 10:58 POC ABG pCO2 34.8 (35-45) L 08/29/17 10:58 POC ABG pO2 93 (80-105) 08/29/17 10:58 POC ABG HCO3 23.4 08/29/17 10:58 POC ABG Total CO2 24 08/29/17 10:58 POC ABG O2 Sat 98 08/29/17 10:58 POC ABG Base Excess -1 08/29/17 10:58 FiO2 28 % 08/29/17 10:58 Sodium 138 mmol/L (137-145) 09/14/17 05:00 Potassium 4.3 mmol/L (3.6-5.0) 09/14/17 05:00 Chloride 101.4 mmol/L (98-107) 09/14/17 05:00 Carbon Dioxide 27 mmol/L (22-30) 09/14/17 05:00 Anion Gap 14 mmol/L 09/14/17 05:00 BUN 14 mg/dL (9-20) 09/14/17 05:00 Creatinine 0.8 mg/dL (0.8-1.5) 09/14/17 05:00 Estimated GFR > 60 ml/min 09/14/17 05:00 BUN/Creatinine Ratio 18 % 09/14/17 05:00 Glucose 111 mg/dL (75-100) H 09/14/17 05:00 POC Glucose 106 (70-105) H 09/14/17 11:30 Lactic Acid 1.80 mmol/L (0.7-2.0) 08/28/17 Unknown Calcium 8.3 mg/dL (8.4-10.2) L 09/14/17 05:00 Phosphorus 3.30 mg/dL (2.5-4.5) 09/12/17 Unknown Magnesium 2.20 mg/dL (1.7-2.3) 09/12/17 Unknown Total Bilirubin 0.60 mg/dL (0.1-1.2) 09/09/17 07:17 AST 28 units/L (5-40) 09/09/17 07:17 ALT 14 units/L (7-56) 09/09/17 07:17 Alkaline Phosphatase 75 units/L (35-129) 09/09/17 07:17 Total Creatine Kinase 155 units/L (55-170) 08/23/17 10:56 CK-MB (CK-2) 4.4 ng/mL (0.0-4.0) H 08/23/17 10:56 CK-MB (CK-2) Rel Index 2.8 (0-4) 08/23/17 10:56 Troponin T 0.297 ng/mL (0.00-0.029) H* 09/02/17 17:00 C-Reactive Protein 38.40 mg/dL (0.00-1.30) H 08/29/17 20:45 NT-Pro-B Natriuret Pep 77687 pg/mL (0-900) H 08/23/17 02:54 Total Protein 5.9 g/dL (6.3-8.2) L 09/09/17 07:17 Albumin 2.2 g/dL (3.9-5) L 09/09/17 07:17 Albumin/Globulin Ratio 0.6 % 09/09/17 07:17 Triglycerides 69 mg/dL (2-149) 08/23/17 02:54 Cholesterol 125 mg/dL (50-199) 08/23/17 02:54 LDL Cholesterol Direct 77 mg/dL (50-130) 08/23/17 02:54 HDL Cholesterol 36 mg/dL (40-59) L 08/23/17 02:54 Cholesterol/HDL Ratio 3.47 % 08/23/17 02:54 Prostate Specific Ag 96.82 ng/mL (0.00-4.00) H 08/30/17 18:11 Urine Color Yellow (Yellow) 08/28/17 21:00 Urine Turbidity Clear (Clear) 08/28/17 21:00 Urine pH 5.0 (5.0-7.0) 08/28/17 21:00 Ur Specific [place] 1.005 (1.003-1.030) 08/28/17 21:00 Urine Protein <15 mg/dl mg/dL (Negative) 08/28/17 21:00 Urine Glucose (UA) Neg mg/dL (Negative) 08/28/17 21:00 Urine Ketones Neg mg/dL (Negative) 08/28/17 21:00 Urine Blood Lg (Negative) 08/28/17 21:00 Urine Nitrite Neg (Negative) 08/28/17 21:00 Urine Bilirubin Neg (Negative) 08/28/17 21:00 Urine Urobilinogen < 2.0 mg/dL (<2.0) 08/28/17 21:00 Ur Leukocyte Esterase Lg (Negative) 08/28/17 21:00 Urine WBC (Auto) 43.0 /HPF (0.0-6.0) H 08/28/17 21:00 Urine RBC (Auto) > 182.0 /HPF (0.0-6.0) 08/28/17 21:00 U Epithel Cells (Auto) < 1.0 /HPF (0-13.0) 08/28/17 21:00 Uric Acid Crystals 2+ 08/28/17 21:00 Urine Mucus Few /HPF 08/28/17 21:00 Miscellaneous Test See scanned report 09/02/17 17:05 Blood Type B POSITIVE 08/27/17 20:03 Antibody Screen Negative 08/27/17 20:03 Crossmatch See Detail 08/27/17 20:03
[2017-09-14] MEDS: RisperDAL PO SCH ×2 (12:44→22:05)
--- NOTE | 2017-09-14 12:56 | Progress Note ---
Assessment and Plan Sepsis Acute SBO/Ileus Acute on chronic diastolic heart failure Echo 04/2017 at [place] - LVEF 45-50% with moderate RV dysfunctioin Permanent atrial fibrillation on digoxin and metoprolol for rate control. History of CAD s/p PCI to LAD in 2011 History of ascending aortic aneurysm measuring [address] 03/2016 Chronic DVT on xarelto as an outpatient Chronic renal failure Systemic Hypertension Non-compliance Continue rate controlling agents for chronic atrial fibrillation. Otherwise, conservative cardiac management. Subjective Date of service: 09/14/17 Principal diagnosis: afib with RVR and CHF excacerbation Interval history: Patient is resting in bed comfortably. Objective Vital Signs Temp Pulse Resp BP Pulse Ox 09/14/17 07:37 98.6 F 77 20 131/58 96 09/14/17 03:08 98.6 F 105 H 20 119/76 100 09/13/17 21:58 99.8 F H 106 H 22 110/74 95 09/13/17 19:30 96 09/13/17 16:58 20 09/13/17 16:10 75 09/13/17 15:58 20 09/13/17 15:48 98.2 F 20 105/57 - Physical Examination General: No Apparent Distress HEENT: Positive: PERRL Cardiac: Positive: irregularly irregular Extremities: Absent: edema - Labs and Meds Comprehensive Metabolic Panel 09/14/17 Range/Units 05:00 Sodium 138 (137-145) mmol/L Potassium 4.3 (3.6-5.0) mmol/L Chloride 101.4 (98-107) mmol/L Carbon Dioxide 27 (22-30) mmol/L BUN 14 (9-20) mg/dL Creatinine 0.8 (0.8-1.5) mg/dL Glucose 111 H (75-100) mg/dL Calcium 8.3 L (8.4-10.2) mg/dL
[2017-09-14] MEDS: LANOXIN PO SCH (16:47)
[2017-09-14] MEDS ORDERED: TPN ADULT 2,400 ML IV SCH (20:00)
[2017-09-14] MEDS: DESYREL PO SCH (22:05)
[2017-09-15] MEDS: LOPRESSOR PO SCH ×3 (06:26→22:25)
[2017-09-15 06:33] LABS: BUN/Creatinine Ratio 19; Blood Urea Nitrogen 15 mg/dL (9-20); Calcium 8.1 mg/dL (8.4-10.2); Hemolysis Index 0
--- NOTE | 2017-09-15 07:50 | Progress Note ---
Assessment and Plan Assessment and plan: Acute hypoxemic respiratory failure - Patient extubated on 08/29/17. Continue O2 to maintain sats. - Patient is saturating well Ileus - Resolved - Patient is currently on cardiac and carb consistent diet - We'll DC TPN Toxic metabolic encephalopathy - Resolving - Supportive care Acute on chronic diastolic heart failure - Echo 04/2017 at [place] - LVEF 45-50%, moderate RV dysfunction, RVSP 49 mm Hg and dilated IVC - Cardiology following, recommended conservative cardiac management Permanent atrial fibrillation with RVR - Continue BB and xarelto - Cardiology following. Sepsis - Resolved Complicated UTI with urinary retention. - Resolved -08/24/17 SP cath was placed -08/27/17 CT abd showed free air intraperitoneal, SP cath, high density material in the urinary bladder, prominent prostate and bilateral renal calculi. -08/27/17 taken to the OR for cysto, evacuation of clots and merida placement by due to acute retention and exlap with evacuation of large amount of blood 2 L from abdominal cavity by Surgery. No bowel perforation History of CAD s/p PCI to LAD (2011) low salt diet and medical management History of ascending aortic aneurysm measuring [address] 03/2016 Chronic DVT - Was on xarelto Acute renal failure Etiology likely secondary to Sepsis/ATN Resolved. Nephrology following. Systemic Hypertension Urinary retention - on catheter Bipolar disorder - Psych is following - Resumed home medications Disposition - Discharged to SNF - Patient Problems (1) Atrial fibrillation with RVR Current Visit: Yes Status: Acute (2) Respiratory failure Current Visit: Yes Status: Acute (3) Shock Current Visit: Yes Status: Acute (4) Acute abdominal pain Current Visit: No Status: Acute (5) Altered mental status Current Visit: No Status: Acute (6) Chronic atrial fibrillation Current Visit: No Status: Acute (7) Cystitis Current Visit: No Status: Acute (8) Discharge planning issues Current Visit: No Status: Acute (9) Bipolar disorder Current Visit: No Status: Chronic Qualifiers: Active/Remission status: remission status unspecified Qualified Code(s): F31.9 - Bipolar disorder, unspecified (10) Coronary artery disease Current Visit: No Status: Chronic Qualifiers: Coronary Disease-Associated Artery/Lesion type: [place] artery Associated angina: without angina (11) History of CVA (cerebrovascular accident) without residual deficits Current Visit: No Status: Chronic History Interval history: Patient was seen and evaluated this morning, Patient tolerated cardiac and ADA diet well. Hospitalist Physical - Physical exam Narrative exam: Not in cardiopulmonary distress. The patient appeared well nourished and normally developed. Vital signs as documented. Head exam is unremarkable. No scleral icterus . Neck is without jugular venous distension, thyromegaly, or carotid bruits. Lungs are clear to auscultation. Cardiac exam reveals regular rate and Rhythm. First and second heart sounds normal. No murmurs, rubs or gallops. Abdominal exam soft and nontender, normoactive bowel sounds . Extremities are nonedematous and both femoral and pedal pulses are normal. 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 - Constitutional Vitals: Temp Pulse Resp BP Pulse Ox 98.4 F 83 18 106/60 100 09/15/17 02:34 09/15/17 02:34 09/15/17 02:34 09/15/17 02:34 09/15/17 02:34 General appearance: Present: no acute distress Results - Labs CBC & Chem 7: 09/07/17 05:11 09/15/17 05:50 Labs: Laboratory Last Values WBC 10.9 K/mm3 (4.5-11.0) 09/07/17 05:11 RBC 3.45 M/mm3 (3.65-5.03) L 09/07/17 05:11 Hgb 8.2 gm/dl (11.8-15.2) L 09/07/17 05:11 Hct 25.1 % (35.5-45.6) L 09/07/17 05:11 MCV 73 fl (84-94) L 09/07/17 05:11 MCH 24 pg (28-32) L 09/07/17 05:11 MCHC 33 % (32-34) 09/07/17 05:11 RDW 23.2 % (13.2-15.2) H 09/07/17 05:11 Plt Count 194 K/mm3 (140-440) 09/07/17 05:11 Lymph % (Auto) 6.3 % (13.4-35.0) L 09/07/17 05:11 [place] % (Auto) 3.6 % (0.0-7.3) 09/07/17 05:11 Eos % (Auto) 2.9 % (0.0-4.3) 09/07/17 05:11 Baso % (Auto) 0.8 % (0.0-1.8) 09/07/17 05:11 Lymph # 0.7 K/mm3 (1.2-5.4) L 09/07/17 05:11 [place] # 0.4 K/mm3 (0.0-0.8) 09/07/17 05:11 Eos # 0.3 K/mm3 (0.0-0.4) 09/07/17 05:11 Baso # 0.1 K/mm3 (0.0-0.1) 09/07/17 05:11 Add Manual Diff Complete 09/01/17 07:02 Total Counted 100 09/01/17 07:02 Seg Neutrophils % 86.4 % (40.0-70.0) H 09/07/17 05:11 Seg Neuts % (Manual) 93.0 % (40.0-70.0) H 09/01/17 07:02 Band Neutrophils % 0 % 09/01/17 07:02 Lymphocytes % (Manual) 3.0 % (13.4-35.0) L 09/01/17 07:02 Reactive Lymphs % (Man) 0 % 09/01/17 07:02 Monocytes % (Manual) 2.0 % (0.0-7.3) 09/01/17 07:02 Eosinophils % (Manual) 2.0 % (0.0-4.3) 09/01/17 07:02 Basophils % (Manual) 0 % (0.0-1.8) 09/01/17 07:02 Metamyelocytes % 0 % 09/01/17 07:02 Myelocytes % 0 % 09/01/17 07:02 Promyelocytes % 0 % 09/01/17 07:02 Blast Cells % 0 % 09/01/17 07:02 Nucleated RBC % Not Reportable 09/01/17 07:02 Seg Neutrophils # 9.5 K/mm3 (1.8-7.7) H 09/07/17 05:11 Seg Neutrophils # Man 12.6 K/mm3 (1.8-7.7) H 09/01/17 07:02 Band Neutrophils # 0.0 K/mm3 09/01/17 07:02 Lymphocytes # (Manual) 0.4 K/mm3 (1.2-5.4) L 09/01/17 07:02 Abs React Lymphs (Man) 0.0 K/mm3 09/01/17 07:02 Monocytes # (Manual) 0.3 K/mm3 (0.0-0.8) 09/01/17 07:02 Eosinophils # (Manual) 0.3 K/mm3 (0.0-0.4) 09/01/17 07:02 Basophils # (Manual) 0.0 K/mm3 (0.0-0.1) 09/01/17 07:02 Metamyelocytes # 0.0 K/mm3 09/01/17 07:02 Myelocytes # 0.0 K/mm3 09/01/17 07:02 Promyelocytes # 0.0 K/mm3 09/01/17 07:02 Blast Cells # 0.0 K/mm3 09/01/17 07:02 WBC Morphology Not Reportable 09/01/17 07:02 Hypersegmented Neuts Not Reportable 09/01/17 07:02 Hyposegmented Neuts Not Reportable 09/01/17 07:02 Hypogranular Neuts Not Reportable 09/01/17 07:02 Smudge Cells Not Reportable 09/01/17 07:02 Toxic Granulation Not Reportable 09/01/17 07:02 Toxic Vacuolation Not Reportable 09/01/17 07:02 Dohle Bodies Not Reportable 09/01/17 07:02 Pelger-Huet Anomaly Not Reportable 09/01/17 07:02 Cande Rods Not Reportable 09/01/17 07:02 Platelet Estimate Cons 09/01/17 07:02 Clumped Platelets Not Reportable 09/01/17 07:02 Plt Clumps, EDTA Not Reportable 09/01/17 07:02 Large Platelets Not Reportable 09/01/17 07:02 Giant Platelets Not Reportable 09/01/17 07:02 Platelet Satelliting Not Reportable 09/01/17 07:02 Plt Morphology Comment Not Reportable 09/01/17 07:02 RBC Morphology Not Reportable 09/01/17 07:02 Dimorphic RBCs Not Reportable 09/01/17 07:02 Polychromasia Not Reportable 09/01/17 07:02 Hypochromasia 2+ 09/01/17 07:02 Poikilocytosis 2+ 09/01/17 07:02 Anisocytosis 2+ 09/01/17 07:02 Microcytosis Not Reportable 09/01/17 07:02 Macrocytosis Not Reportable 09/01/17 07:02 Spherocytes Not Reportable 09/01/17 07:02 Pappenheimer Bodies Not Reportable 09/01/17 07:02 Sickle Cells Not Reportable 09/01/17 07:02 Target Cells Few 09/01/17 07:02 Tear Drop Cells Not Reportable 09/01/17 07:02 Ovalocytes Not Reportable 09/01/17 07:02 Helmet Cells Not Reportable 09/01/17 07:02 Morrell-Hildebran Bodies Not Reportable 09/01/17 07:02 [place] Rings Not Reportable 09/01/17 07:02 [place] Cells 1+ 09/01/17 07:02 Bite Cells Not Reportable 09/01/17 07:02 Crenated Cell Not Reportable 09/01/17 07:02 Elliptocytes Not Reportable 09/01/17 07:02 Acanthocytes (Spur) 1+ 09/01/17 07:02 Rouleaux Not Reportable 09/01/17 07:02 Hemoglobin C Crystals Not Reportable 09/01/17 07:02 Schistocytes Few 09/01/17 07:02 Malaria parasites Not Reportable 09/01/17 07:02 Jonny Bodies Not Reportable 09/01/17 07:02 Hem Pathologist Commnt No 09/01/17 07:02 PT 22.7 Sec. (12.2-14.9) H 09/02/17 17:00 INR 1.87 (0.87-1.13) H 09/02/17 17:00 APTT 37.7 Sec. (24.2-36.6) H 09/02/17 17:00 POC ABG pH 7.435 (7.35-7.45) 08/29/17 10:58 POC ABG pCO2 34.8 (35-45) L 08/29/17 10:58 POC ABG pO2 93 (80-105) 08/29/17 10:58 POC ABG HCO3 23.4 08/29/17 10:58 POC ABG Total CO2 24 08/29/17 10:58 POC ABG O2 Sat 98 08/29/17 10:58 POC ABG Base Excess -1 08/29/17 10:58 FiO2 28 % 08/29/17 10:58 Sodium 137 mmol/L (137-145) 09/15/17 05:50 Potassium 3.9 mmol/L (3.6-5.0) 09/15/17 05:50 Chloride 101.1 mmol/L (98-107) 09/15/17 05:50 Carbon Dioxide 28 mmol/L (22-30) 09/15/17 05:50 Anion Gap 12 mmol/L 09/15/17 05:50 BUN 15 mg/dL (9-20) 09/15/17 05:50 Creatinine 0.8 mg/dL (0.8-1.5) 09/15/17 05:50 Estimated GFR > 60 ml/min 09/15/17 05:50 BUN/Creatinine Ratio 19 % 09/15/17 05:50 Glucose 102 mg/dL (75-100) H 09/15/17 05:50 POC Glucose 115 (70-105) H 09/15/17 06:26 Lactic Acid 1.80 mmol/L (0.7-2.0) 08/28/17 Unknown Calcium 8.1 mg/dL (8.4-10.2) L 09/15/17 05:50 Phosphorus 3.50 mg/dL (2.5-4.5) 09/15/17 05:50 Magnesium 2.20 mg/dL (1.7-2.3) 09/15/17 05:50 Total Bilirubin 0.60 mg/dL (0.1-1.2) 09/09/17 07:17 AST 28 units/L (5-40) 09/09/17 07:17 ALT 14 units/L (7-56) 09/09/17 07:17 Alkaline Phosphatase 75 units/L (35-129) 09/09/17 07:17 Total Creatine Kinase 155 units/L (55-170) 08/23/17 10:56 CK-MB (CK-2) 4.4 ng/mL (0.0-4.0) H 08/23/17 10:56 CK-MB (CK-2) Rel Index 2.8 (0-4) 08/23/17 10:56 Troponin T 0.297 ng/mL (0.00-0.029) H* 09/02/17 17:00 C-Reactive Protein 38.40 mg/dL (0.00-1.30) H 08/29/17 20:45 NT-Pro-B Natriuret Pep 01570 pg/mL (0-900) H 08/23/17 02:54 Total Protein 5.9 g/dL (6.3-8.2) L 09/09/17 07:17 Albumin 2.2 g/dL (3.9-5) L 09/09/17 07:17 Albumin/Globulin Ratio 0.6 % 09/09/17 07:17 Triglycerides 69 mg/dL (2-149) 08/23/17 02:54 Cholesterol 125 mg/dL (50-199) 08/23/17 02:54 LDL Cholesterol Direct 77 mg/dL (50-130) 08/23/17 02:54 HDL Cholesterol 36 mg/dL (40-59) L 08/23/17 02:54 Cholesterol/HDL Ratio 3.47 % 08/23/17 02:54 Prostate Specific Ag 96.82 ng/mL (0.00-4.00) H 08/30/17 18:11 Urine Color Yellow (Yellow) 08/28/17 21:00 Urine Turbidity Clear (Clear) 08/28/17 21:00 Urine pH 5.0 (5.0-7.0) 08/28/17 21:00 Ur Specific [place] 1.005 (1.003-1.030) 08/28/17 21:00 Urine Protein <15 mg/dl mg/dL (Negative) 08/28/17 21:00 Urine Glucose (UA) Neg mg/dL (Negative) 08/28/17 21:00 Urine Ketones Neg mg/dL (Negative) 08/28/17 21:00 Urine Blood Lg (Negative) 08/28/17 21:00 Urine Nitrite Neg (Negative) 08/28/17 21:00 Urine Bilirubin Neg (Negative) 08/28/17 21:00 Urine Urobilinogen < 2.0 mg/dL (<2.0) 08/28/17 21:00 Ur Leukocyte Esterase Lg (Negative) 08/28/17 21:00 Urine WBC (Auto) 43.0 /HPF (0.0-6.0) H 08/28/17 21:00 Urine RBC (Auto) > 182.0 /HPF (0.0-6.0) 08/28/17 21:00 U Epithel Cells (Auto) < 1.0 /HPF (0-13.0) 08/28/17 21:00 Uric Acid Crystals 2+ 08/28/17 21:00 Urine Mucus Few /HPF 08/28/17 21:00 Digoxin 0.6 ng/mL (0.9-2.0) L 09/15/17 05:50 Miscellaneous Test See scanned report 09/02/17 17:05 Blood Type B POSITIVE 08/27/17 20:03 Antibody Screen Negative 08/27/17 20:03 Crossmatch See Detail 08/27/17 20:03
--- NOTE | 2017-09-15 08:30 | Progress Note ---
Assessment and Plan Sepsis Acute SBO/Ileus Acute on chronic diastolic heart failure Echo 04/2017 at [place] - LVEF 45-50% with moderate RV dysfunctioin Permanent atrial fibrillation on digoxin and metoprolol for rate control. History of CAD s/p PCI to LAD in 2011 History of ascending aortic aneurysm measuring [address] 03/2016 Chronic DVT on xarelto as an outpatient Chronic renal failure Systemic Hypertension Non-compliance Continue rate controlling agents for chronic atrial fibrillation. Otherwise, conservative cardiac management. Subjective Date of service: 09/15/17 Principal diagnosis: afib with RVR and CHF excacerbation Interval history: Patient is resting in bed comfortably. Restraints remain in place. Objective Vital Signs Temp Pulse Resp BP Pulse Ox 09/15/17 02:34 98.4 F 83 18 106/60 100 09/14/17 22:04 73 93/54 09/14/17 22:00 96 09/14/17 20:34 99.8 F H 73 20 93/54 96 09/14/17 16:47 90 09/14/17 14:54 98.7 F 60 20 114/65 99 09/14/17 10:00 97 - Physical Examination General: No Apparent Distress HEENT: Positive: PERRL Cardiac: Positive: irregularly irregular Neuro: Positive: Weakness Extremities: Absent: edema - Labs and Meds Comprehensive Metabolic Panel 09/15/17 Range/Units 05:50 Sodium 137 (137-145) mmol/L Potassium 3.9 (3.6-5.0) mmol/L Chloride 101.1 (98-107) mmol/L Carbon Dioxide 28 (22-30) mmol/L BUN 15 (9-20) mg/dL Creatinine 0.8 (0.8-1.5) mg/dL Glucose 102 H (75-100) mg/dL Calcium 8.1 L (8.4-10.2) mg/dL
[2017-09-15] MEDS: FLOMAX PO SCH (09:20)
[2017-09-15] MEDS: XARELTO PO SCH (09:21)
[2017-09-15] MEDS: PEPCID PO SCH ×2 (09:21→22:24)
[2017-09-15] MEDS: RisperDAL PO SCH ×2 (09:21→22:23)
[2017-09-15] MEDS: COZAAR PO SCH (09:22)
[2017-09-15] MEDS: SODIUM CHLORIDE FLUSH SYRINGE 10 ML IV SCH ×2 (09:30→22:26)
[2017-09-15] MEDS ORDERED: TPN ADULT 2,400 ML IV SCH (20:00)
[2017-09-15] MEDS: DESYREL PO SCH (22:24)
[2017-09-16] MEDS: LOPRESSOR PO SCH ×3 (06:52→23:33)
--- NOTE | 2017-09-16 08:01 | Progress Note ---
Assessment and Plan Assessment and plan: Acute hypoxemic respiratory failure - Patient extubated on 08/29/17. Continue O2 to maintain sats. - Patient is saturating well Ileus - Resolved - Patient is currently on cardiac and carb consistent diet - We'll DC TPN Toxic metabolic encephalopathy - Resolving - Supportive care Acute on chronic diastolic heart failure - Echo 04/2017 at [facility] - LVEF 45-50%, moderate RV dysfunction, RVSP 49 mm Hg and dilated IVC - Cardiology following, recommended conservative cardiac management Permanent atrial fibrillation with RVR - Continue BB and xarelto - Cardiology following. Sepsis - Resolved Complicated UTI with urinary retention. - Resolved -08/24/17 SP cath was placed -08/27/17 CT abd showed free air intraperitoneal, SP cath, high density material in the urinary bladder, prominent prostate and bilateral renal calculi. -08/27/17 taken to the OR for cysto, evacuation of clots and merida placement by due to acute retention and exlap with evacuation of large amount of blood 2 L from abdominal cavity by Surgery. No bowel perforation History of CAD s/p PCI to LAD (2011) low salt diet and medical management History of ascending aortic aneurysm measuring [address] 03/2016 Chronic DVT - Was on xarelto Acute renal failure Etiology likely secondary to Sepsis/ATN Resolved. Nephrology following. Systemic Hypertension Urinary retention - on catheter Bipolar disorder - Psych is following - Resumed home medications Disposition - We'll discharge to SNF - Patient Problems (1) Atrial fibrillation with RVR Current Visit: Yes Status: Acute (2) Respiratory failure Current Visit: Yes Status: Acute (3) Shock Current Visit: Yes Status: Acute (4) Acute abdominal pain Current Visit: No Status: Acute (5) Altered mental status Current Visit: No Status: Acute (6) Chronic atrial fibrillation Current Visit: No Status: Acute (7) Cystitis Current Visit: No Status: Acute (8) Discharge planning issues Current Visit: No Status: Acute (9) Bipolar disorder Current Visit: No Status: Chronic Qualifiers: Active/Remission status: remission status unspecified Qualified Code(s): F31.9 - Bipolar disorder, unspecified (10) Coronary artery disease Current Visit: No Status: Chronic Qualifiers: Coronary Disease-Associated Artery/Lesion type: [place] artery Associated angina: without angina (11) History of CVA (cerebrovascular accident) without residual deficits Current Visit: No Status: Chronic History Interval history: Patient was seen and evaluated this morning, Patient tolerated cardiac and ADA diet well. TPN discontinued Hospitalist Physical - Physical exam Narrative exam: Not in cardiopulmonary distress. The patient appeared well nourished and normally developed. Vital signs as documented. Head exam is unremarkable. No scleral icterus . Neck is without jugular venous distension, thyromegaly, or carotid bruits. Lungs are clear to auscultation. Cardiac exam reveals regular rate and Rhythm. First and second heart sounds normal. No murmurs, rubs or gallops. Abdominal exam soft and nontender, normoactive bowel sounds . Extremities are nonedematous and both femoral and pedal pulses are normal. 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 - Constitutional Vitals: Temp Pulse Resp BP Pulse Ox 98.6 F 78 18 107/60 97 09/16/17 01:58 09/16/17 06:52 09/16/17 01:58 09/16/17 06:52 09/16/17 01:58 General appearance: Present: no acute distress Results - Labs CBC & Chem 7: 09/07/17 05:11 09/15/17 05:50 Labs: Laboratory Last Values WBC 10.9 K/mm3 (4.5-11.0) 09/07/17 05:11 RBC 3.45 M/mm3 (3.65-5.03) L 09/07/17 05:11 Hgb 8.2 gm/dl (11.8-15.2) L 09/07/17 05:11 Hct 25.1 % (35.5-45.6) L 09/07/17 05:11 MCV 73 fl (84-94) L 09/07/17 05:11 MCH 24 pg (28-32) L 09/07/17 05:11 MCHC 33 % (32-34) 09/07/17 05:11 RDW 23.2 % (13.2-15.2) H 09/07/17 05:11 Plt Count 194 K/mm3 (140-440) 09/07/17 05:11 Lymph % (Auto) 6.3 % (13.4-35.0) L 09/07/17 05:11 [place] % (Auto) 3.6 % (0.0-7.3) 09/07/17 05:11 Eos % (Auto) 2.9 % (0.0-4.3) 09/07/17 05:11 Baso % (Auto) 0.8 % (0.0-1.8) 09/07/17 05:11 Lymph # 0.7 K/mm3 (1.2-5.4) L 09/07/17 05:11 [place] # 0.4 K/mm3 (0.0-0.8) 09/07/17 05:11 Eos # 0.3 K/mm3 (0.0-0.4) 09/07/17 05:11 Baso # 0.1 K/mm3 (0.0-0.1) 09/07/17 05:11 Add Manual Diff Complete 09/01/17 07:02 Total Counted 100 09/01/17 07:02 Seg Neutrophils % 86.4 % (40.0-70.0) H 09/07/17 05:11 Seg Neuts % (Manual) 93.0 % (40.0-70.0) H 09/01/17 07:02 Band Neutrophils % 0 % 09/01/17 07:02 Lymphocytes % (Manual) 3.0 % (13.4-35.0) L 09/01/17 07:02 Reactive Lymphs % (Man) 0 % 09/01/17 07:02 Monocytes % (Manual) 2.0 % (0.0-7.3) 09/01/17 07:02 Eosinophils % (Manual) 2.0 % (0.0-4.3) 09/01/17 07:02 Basophils % (Manual) 0 % (0.0-1.8) 09/01/17 07:02 Metamyelocytes % 0 % 09/01/17 07:02 Myelocytes % 0 % 09/01/17 07:02 Promyelocytes % 0 % 09/01/17 07:02 Blast Cells % 0 % 09/01/17 07:02 Nucleated RBC % Not Reportable 09/01/17 07:02 Seg Neutrophils # 9.5 K/mm3 (1.8-7.7) H 09/07/17 05:11 Seg Neutrophils # Man 12.6 K/mm3 (1.8-7.7) H 09/01/17 07:02 Band Neutrophils # 0.0 K/mm3 09/01/17 07:02 Lymphocytes # (Manual) 0.4 K/mm3 (1.2-5.4) L 09/01/17 07:02 Abs React Lymphs (Man) 0.0 K/mm3 09/01/17 07:02 Monocytes # (Manual) 0.3 K/mm3 (0.0-0.8) 09/01/17 07:02 Eosinophils # (Manual) 0.3 K/mm3 (0.0-0.4) 09/01/17 07:02 Basophils # (Manual) 0.0 K/mm3 (0.0-0.1) 09/01/17 07:02 Metamyelocytes # 0.0 K/mm3 09/01/17 07:02 Myelocytes # 0.0 K/mm3 09/01/17 07:02 Promyelocytes # 0.0 K/mm3 09/01/17 07:02 Blast Cells # 0.0 K/mm3 09/01/17 07:02 WBC Morphology Not Reportable 09/01/17 07:02 Hypersegmented Neuts Not Reportable 09/01/17 07:02 Hyposegmented Neuts Not Reportable 09/01/17 07:02 Hypogranular Neuts Not Reportable 09/01/17 07:02 Smudge Cells Not Reportable 09/01/17 07:02 Toxic Granulation Not Reportable 09/01/17 07:02 Toxic Vacuolation Not Reportable 09/01/17 07:02 Dohle Bodies Not Reportable 09/01/17 07:02 Pelger-Huet Anomaly Not Reportable 09/01/17 07:02 Cande Rods Not Reportable 09/01/17 07:02 Platelet Estimate Cons 09/01/17 07:02 Clumped Platelets Not Reportable 09/01/17 07:02 Plt Clumps, EDTA Not Reportable 09/01/17 07:02 Large Platelets Not Reportable 09/01/17 07:02 Giant Platelets Not Reportable 09/01/17 07:02 Platelet Satelliting Not Reportable 09/01/17 07:02 Plt Morphology Comment Not Reportable 09/01/17 07:02 RBC Morphology Not Reportable 09/01/17 07:02 Dimorphic RBCs Not Reportable 09/01/17 07:02 Polychromasia Not Reportable 09/01/17 07:02 Hypochromasia 2+ 09/01/17 07:02 Poikilocytosis 2+ 09/01/17 07:02 Anisocytosis 2+ 09/01/17 07:02 Microcytosis Not Reportable 09/01/17 07:02 Macrocytosis Not Reportable 09/01/17 07:02 Spherocytes Not Reportable 09/01/17 07:02 Pappenheimer Bodies Not Reportable 09/01/17 07:02 Sickle Cells Not Reportable 09/01/17 07:02 Target Cells Few 09/01/17 07:02 Tear Drop Cells Not Reportable 09/01/17 07:02 Ovalocytes Not Reportable 09/01/17 07:02 Helmet Cells Not Reportable 09/01/17 07:02 [place] Bodies Not Reportable 09/01/17 07:02 [place] Rings Not Reportable 09/01/17 07:02 [place] Cells 1+ 09/01/17 07:02 Bite Cells Not Reportable 09/01/17 07:02 Crenated Cell Not Reportable 09/01/17 07:02 Elliptocytes Not Reportable 09/01/17 07:02 Acanthocytes (Spur) 1+ 09/01/17 07:02 Rouleaux Not Reportable 09/01/17 07:02 Hemoglobin C Crystals Not Reportable 09/01/17 07:02 Schistocytes Few 09/01/17 07:02 Malaria parasites Not Reportable 09/01/17 07:02 Jonny Bodies Not Reportable 09/01/17 07:02 Hem Pathologist Commnt No 09/01/17 07:02 PT 22.7 Sec. (12.2-14.9) H 09/02/17 17:00 INR 1.87 (0.87-1.13) H 09/02/17 17:00 APTT 37.7 Sec. (24.2-36.6) H 09/02/17 17:00 POC ABG pH 7.435 (7.35-7.45) 08/29/17 10:58 POC ABG pCO2 34.8 (35-45) L 08/29/17 10:58 POC ABG pO2 93 (80-105) 08/29/17 10:58 POC ABG HCO3 23.4 08/29/17 10:58 POC ABG Total CO2 24 08/29/17 10:58 POC ABG O2 Sat 98 08/29/17 10:58 POC ABG Base Excess -1 08/29/17 10:58 FiO2 28 % 08/29/17 10:58 Sodium 137 mmol/L (137-145) 09/15/17 05:50 Potassium 3.9 mmol/L (3.6-5.0) 09/15/17 05:50 Chloride 101.1 mmol/L (98-107) 09/15/17 05:50 Carbon Dioxide 28 mmol/L (22-30) 09/15/17 05:50 Anion Gap 12 mmol/L 09/15/17 05:50 BUN 15 mg/dL (9-20) 09/15/17 05:50 Creatinine 0.8 mg/dL (0.8-1.5) 09/15/17 05:50 Estimated GFR > 60 ml/min 09/15/17 05:50 BUN/Creatinine Ratio 19 % 09/15/17 05:50 Glucose 102 mg/dL (75-100) H 09/15/17 05:50 POC Glucose 86 (70-105) 09/16/17 06:20 Lactic Acid 1.80 mmol/L (0.7-2.0) 08/28/17 Unknown Calcium 8.1 mg/dL (8.4-10.2) L 09/15/17 05:50 Phosphorus 3.50 mg/dL (2.5-4.5) 09/15/17 05:50 Magnesium 2.20 mg/dL (1.7-2.3) 09/15/17 05:50 Total Bilirubin 0.60 mg/dL (0.1-1.2) 09/09/17 07:17 AST 28 units/L (5-40) 09/09/17 07:17 ALT 14 units/L (7-56) 09/09/17 07:17 Alkaline Phosphatase 75 units/L (35-129) 09/09/17 07:17 Total Creatine Kinase 155 units/L (55-170) 08/23/17 10:56 CK-MB (CK-2) 4.4 ng/mL (0.0-4.0) H 08/23/17 10:56 CK-MB (CK-2) Rel Index 2.8 (0-4) 08/23/17 10:56 Troponin T 0.297 ng/mL (0.00-0.029) H* 09/02/17 17:00 C-Reactive Protein 38.40 mg/dL (0.00-1.30) H 08/29/17 20:45 NT-Pro-B Natriuret Pep 36175 pg/mL (0-900) H 08/23/17 02:54 Total Protein 5.9 g/dL (6.3-8.2) L 09/09/17 07:17 Albumin 2.2 g/dL (3.9-5) L 09/09/17 07:17 Albumin/Globulin Ratio 0.6 % 09/09/17 07:17 Triglycerides 69 mg/dL (2-149) 08/23/17 02:54 Cholesterol 125 mg/dL (50-199) 08/23/17 02:54 LDL Cholesterol Direct 77 mg/dL (50-130) 08/23/17 02:54 HDL Cholesterol 36 mg/dL (40-59) L 08/23/17 02:54 Cholesterol/HDL Ratio 3.47 % 08/23/17 02:54 Prostate Specific Ag 96.82 ng/mL (0.00-4.00) H 08/30/17 18:11 Urine Color Yellow (Yellow) 08/28/17 21:00 Urine Turbidity Clear (Clear) 08/28/17 21:00 Urine pH 5.0 (5.0-7.0) 08/28/17 21:00 Ur Specific [place] 1.005 (1.003-1.030) 08/28/17 21:00 Urine Protein <15 mg/dl mg/dL (Negative) 08/28/17 21:00 Urine Glucose (UA) Neg mg/dL (Negative) 08/28/17 21:00 Urine Ketones Neg mg/dL (Negative) 08/28/17 21:00 Urine Blood Lg (Negative) 08/28/17 21:00 Urine Nitrite Neg (Negative) 08/28/17 21:00 Urine Bilirubin Neg (Negative) 08/28/17 21:00 Urine Urobilinogen < 2.0 mg/dL (<2.0) 08/28/17 21:00 Ur Leukocyte Esterase Lg (Negative) 08/28/17 21:00 Urine WBC (Auto) 43.0 /HPF (0.0-6.0) H 08/28/17 21:00 Urine RBC (Auto) > 182.0 /HPF (0.0-6.0) 08/28/17 21:00 U Epithel Cells (Auto) < 1.0 /HPF (0-13.0) 08/28/17 21:00 Uric Acid Crystals 2+ 08/28/17 21:00 Urine Mucus Few /HPF 08/28/17 21:00 Digoxin 0.6 ng/mL (0.9-2.0) L 09/15/17 05:50 Miscellaneous Test See scanned report 09/02/17 17:05 Blood Type B POSITIVE 08/27/17 20:03 Antibody Screen Negative 08/27/17 20:03 Crossmatch See Detail 08/27/17 20:03
[2017-09-16] MEDS: XARELTO PO SCH (09:23)
[2017-09-16] MEDS: PEPCID PO SCH ×2 (10:38→22:22)
[2017-09-16] MEDS: RisperDAL PO SCH ×2 (10:38→23:22)
[2017-09-16] MEDS: FLOMAX PO SCH (10:38)
[2017-09-16] MEDS: SODIUM CHLORIDE FLUSH SYRINGE 10 ML IV SCH ×2 (10:39→23:34)
[2017-09-16] MEDS: COZAAR PO SCH (10:40)
--- NOTE | 2017-09-16 11:42 | Progress Note ---
Assessment and Plan Sepsis Acute SBO/Ileus Acute on chronic diastolic heart failure Echo 04/2017 at [facility] - LVEF 45-50% with moderate RV dysfunctioin Permanent atrial fibrillation on digoxin and metoprolol for rate control. on xarelto for anticoagulation History of CAD s/p PCI to LAD in 2011 History of ascending aortic aneurysm measuring [address] 03/2016 Chronic DVT on xarelto Chronic renal failure Systemic Hypertension Non-compliance Recommend: Continue current therapy. Subjective Date of service: 09/16/17 Principal diagnosis: afib with RVR and CHF excacerbation Interval history: No cardiac complaints. Pt is confused Objective Vital Signs Temp Pulse Resp BP Pulse Ox 09/16/17 10:40 63 106/69 09/16/17 08:44 96 09/16/17 07:52 98.6 F 63 20 106/69 98 09/16/17 06:52 78 107/60 09/16/17 01:58 98.6 F 78 18 107/61 97 09/15/17 23:22 98.7 F 19 107/67 09/15/17 22:25 84 107/67 09/15/17 22:00 96 09/15/17 21:04 100 09/15/17 20:08 64 99 09/15/17 20:07 98.3 F 69 18 119/50 93 09/15/17 17:51 87/60 09/15/17 13:56 98.3 F 74 18 87/49 100 - Physical Examination General: No Apparent Distress HEENT: Positive: PERRL Neck: Positive: neck supple, trachea midline. Negative: JVD/HJR, Masses Cardiac: Positive: irregularly irregular Lungs: Positive: Rhonchi Abdomen: Positive: Unremarkable, Soft, Active Bowel Sounds, Other Skin: Positive: Clear Extremities: Absent: edema - Imaging and Cardiology EKG: image reviewed
[2017-09-16] MEDS: LANOXIN PO SCH (17:58)
[2017-09-16] MEDS: DESYREL PO SCH (22:23)
[2017-09-17] MEDS: LOPRESSOR PO SCH ×3 (06:24→22:05)
[2017-09-17 06:58] LABS: BUN/Creatinine Ratio 15; Blood Urea Nitrogen 12 mg/dL (9-20); Calcium 8.4 mg/dL (8.4-10.2); Hemolysis Index 3
[2017-09-17] MEDS: XARELTO PO SCH (08:55)
--- NOTE | 2017-09-17 08:58 | Progress Note ---
Assessment and Plan Assessment and plan: Acute hypoxemic respiratory failure - Patient extubated on 08/29/17. Continue O2 to maintain sats. - Patient is saturating well Ileus - Resolved - Patient is currently on cardiac and carb consistent diet - We'll DC TPN Toxic metabolic encephalopathy - Resolving - Supportive care Acute on chronic diastolic heart failure - Echo 04/2017 at [place] - LVEF 45-50%, moderate RV dysfunction, RVSP 49 mm Hg and dilated IVC - Cardiology following, recommended conservative cardiac management Permanent atrial fibrillation with RVR - Continue BB and xarelto - Cardiology following. Sepsis - Resolved Complicated UTI with urinary retention. - Resolved -08/24/17 SP cath was placed -08/27/17 CT abd showed free air intraperitoneal, SP cath, high density material in the urinary bladder, prominent prostate and bilateral renal calculi. -08/27/17 taken to the OR for cysto, evacuation of clots and merida placement by due to acute retention and exlap with evacuation of large amount of blood 2 L from abdominal cavity by Surgery. No bowel perforation History of CAD s/p PCI to LAD (2011) low salt diet and medical management History of ascending aortic aneurysm measuring [address] 03/2016 Chronic DVT - Was on xarelto Acute renal failure Etiology likely secondary to Sepsis/ATN Resolved. Nephrology following. Systemic Hypertension Urinary retention - on catheter Bipolar disorder - Psych is following - Resumed home medications Disposition - pending to Subacute rehab placement - Patient Problems (1) Atrial fibrillation with RVR Current Visit: Yes Status: Acute (2) Respiratory failure Current Visit: Yes Status: Acute (3) Shock Current Visit: Yes Status: Acute (4) Acute abdominal pain Current Visit: No Status: Acute (5) Altered mental status Current Visit: No Status: Acute (6) Chronic atrial fibrillation Current Visit: No Status: Acute (7) Cystitis Current Visit: No Status: Acute (8) Discharge planning issues Current Visit: No Status: Acute (9) Bipolar disorder Current Visit: No Status: Chronic Qualifiers: Active/Remission status: remission status unspecified Qualified Code(s): F31.9 - Bipolar disorder, unspecified (10) Coronary artery disease Current Visit: No Status: Chronic Qualifiers: Coronary Disease-Associated Artery/Lesion type: [place] artery Associated angina: without angina (11) History of CVA (cerebrovascular accident) without residual deficits Current Visit: No Status: Chronic History Interval history: Patient was seen and evaluated this morning, Patient tolerated cardiac and ADA diet well. Hospitalist Physical - Physical exam Narrative exam: Not in cardiopulmonary distress. The patient appeared well nourished and normally developed. Vital signs as documented. Head exam is unremarkable. No scleral icterus . Neck is without jugular venous distension, thyromegaly, or carotid bruits. Lungs are clear to auscultation. Cardiac exam reveals regular rate and Rhythm. First and second heart sounds normal. No murmurs, rubs or gallops. Abdominal exam soft and nontender, normoactive bowel sounds . Extremities are nonedematous and both femoral and pedal pulses are normal. 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 - Constitutional Vitals: Temp Pulse Resp BP Pulse Ox 99.1 F 70 20 110/60 95 09/17/17 02:58 09/17/17 06:24 09/17/17 02:58 09/17/17 06:24 09/17/17 02:58 General appearance: Present: no acute distress Results - Labs CBC & Chem 7: 09/07/17 05:11 09/17/17 05:43 Labs: Laboratory Last Values WBC 10.9 K/mm3 (4.5-11.0) 09/07/17 05:11 RBC 3.45 M/mm3 (3.65-5.03) L 09/07/17 05:11 Hgb 8.2 gm/dl (11.8-15.2) L 09/07/17 05:11 Hct 25.1 % (35.5-45.6) L 09/07/17 05:11 MCV 73 fl (84-94) L 09/07/17 05:11 MCH 24 pg (28-32) L 09/07/17 05:11 MCHC 33 % (32-34) 09/07/17 05:11 RDW 23.2 % (13.2-15.2) H 09/07/17 05:11 Plt Count 194 K/mm3 (140-440) 09/07/17 05:11 Lymph % (Auto) 6.3 % (13.4-35.0) L 09/07/17 05:11 [place] % (Auto) 3.6 % (0.0-7.3) 09/07/17 05:11 Eos % (Auto) 2.9 % (0.0-4.3) 09/07/17 05:11 Baso % (Auto) 0.8 % (0.0-1.8) 09/07/17 05:11 Lymph # 0.7 K/mm3 (1.2-5.4) L 09/07/17 05:11 [place] # 0.4 K/mm3 (0.0-0.8) 09/07/17 05:11 Eos # 0.3 K/mm3 (0.0-0.4) 09/07/17 05:11 Baso # 0.1 K/mm3 (0.0-0.1) 09/07/17 05:11 Add Manual Diff Complete 09/01/17 07:02 Total Counted 100 09/01/17 07:02 Seg Neutrophils % 86.4 % (40.0-70.0) H 09/07/17 05:11 Seg Neuts % (Manual) 93.0 % (40.0-70.0) H 09/01/17 07:02 Band Neutrophils % 0 % 09/01/17 07:02 Lymphocytes % (Manual) 3.0 % (13.4-35.0) L 09/01/17 07:02 Reactive Lymphs % (Man) 0 % 09/01/17 07:02 Monocytes % (Manual) 2.0 % (0.0-7.3) 09/01/17 07:02 Eosinophils % (Manual) 2.0 % (0.0-4.3) 09/01/17 07:02 Basophils % (Manual) 0 % (0.0-1.8) 09/01/17 07:02 Metamyelocytes % 0 % 09/01/17 07:02 Myelocytes % 0 % 09/01/17 07:02 Promyelocytes % 0 % 09/01/17 07:02 Blast Cells % 0 % 09/01/17 07:02 Nucleated RBC % Not Reportable 09/01/17 07:02 Seg Neutrophils # 9.5 K/mm3 (1.8-7.7) H 09/07/17 05:11 Seg Neutrophils # Man 12.6 K/mm3 (1.8-7.7) H 09/01/17 07:02 Band Neutrophils # 0.0 K/mm3 09/01/17 07:02 Lymphocytes # (Manual) 0.4 K/mm3 (1.2-5.4) L 09/01/17 07:02 Abs React Lymphs (Man) 0.0 K/mm3 09/01/17 07:02 Monocytes # (Manual) 0.3 K/mm3 (0.0-0.8) 09/01/17 07:02 Eosinophils # (Manual) 0.3 K/mm3 (0.0-0.4) 09/01/17 07:02 Basophils # (Manual) 0.0 K/mm3 (0.0-0.1) 09/01/17 07:02 Metamyelocytes # 0.0 K/mm3 09/01/17 07:02 Myelocytes # 0.0 K/mm3 09/01/17 07:02 Promyelocytes # 0.0 K/mm3 09/01/17 07:02 Blast Cells # 0.0 K/mm3 09/01/17 07:02 WBC Morphology Not Reportable 09/01/17 07:02 Hypersegmented Neuts Not Reportable 09/01/17 07:02 Hyposegmented Neuts Not Reportable 09/01/17 07:02 Hypogranular Neuts Not Reportable 09/01/17 07:02 Smudge Cells Not Reportable 09/01/17 07:02 Toxic Granulation Not Reportable 09/01/17 07:02 Toxic Vacuolation Not Reportable 09/01/17 07:02 Dohle Bodies Not Reportable 09/01/17 07:02 Pelger-Huet Anomaly Not Reportable 09/01/17 07:02 Cande Rods Not Reportable 09/01/17 07:02 Platelet Estimate Cons 09/01/17 07:02 Clumped Platelets Not Reportable 09/01/17 07:02 Plt Clumps, EDTA Not Reportable 09/01/17 07:02 Large Platelets Not Reportable 09/01/17 07:02 Giant Platelets Not Reportable 09/01/17 07:02 Platelet Satelliting Not Reportable 09/01/17 07:02 Plt Morphology Comment Not Reportable 09/01/17 07:02 RBC Morphology Not Reportable 09/01/17 07:02 Dimorphic RBCs Not Reportable 09/01/17 07:02 Polychromasia Not Reportable 09/01/17 07:02 Hypochromasia 2+ 09/01/17 07:02 Poikilocytosis 2+ 09/01/17 07:02 Anisocytosis 2+ 09/01/17 07:02 Microcytosis Not Reportable 09/01/17 07:02 Macrocytosis Not Reportable 09/01/17 07:02 Spherocytes Not Reportable 09/01/17 07:02 Pappenheimer Bodies Not Reportable 09/01/17 07:02 Sickle Cells Not Reportable 09/01/17 07:02 Target Cells Few 09/01/17 07:02 Tear Drop Cells Not Reportable 09/01/17 07:02 Ovalocytes Not Reportable 09/01/17 07:02 Helmet Cells Not Reportable 09/01/17 07:02 [place] Bodies Not Reportable 09/01/17 07:02 [place] Rings Not Reportable 09/01/17 07:02 [place] Cells 1+ 09/01/17 07:02 Bite Cells Not Reportable 09/01/17 07:02 Crenated Cell Not Reportable 09/01/17 07:02 Elliptocytes Not Reportable 09/01/17 07:02 Acanthocytes (Spur) 1+ 09/01/17 07:02 Rouleaux Not Reportable 09/01/17 07:02 Hemoglobin C Crystals Not Reportable 09/01/17 07:02 Schistocytes Few 09/01/17 07:02 Malaria parasites Not Reportable 09/01/17 07:02 Jonny Bodies Not Reportable 09/01/17 07:02 Hem Pathologist Commnt No 09/01/17 07:02 PT 22.7 Sec. (12.2-14.9) H 09/02/17 17:00 INR 1.87 (0.87-1.13) H 09/02/17 17:00 APTT 37.7 Sec. (24.2-36.6) H 09/02/17 17:00 POC ABG pH 7.435 (7.35-7.45) 08/29/17 10:58 POC ABG pCO2 34.8 (35-45) L 08/29/17 10:58 POC ABG pO2 93 (80-105) 08/29/17 10:58 POC ABG HCO3 23.4 08/29/17 10:58 POC ABG Total CO2 24 08/29/17 10:58 POC ABG O2 Sat 98 08/29/17 10:58 POC ABG Base Excess -1 08/29/17 10:58 FiO2 28 % 08/29/17 10:58 Sodium 138 mmol/L (137-145) 09/17/17 05:43 Potassium 3.8 mmol/L (3.6-5.0) 09/17/17 05:43 Chloride 98.9 mmol/L (98-107) 09/17/17 05:43 Carbon Dioxide 27 mmol/L (22-30) 09/17/17 05:43 Anion Gap 16 mmol/L 09/17/17 05:43 BUN 12 mg/dL (9-20) 09/17/17 05:43 Creatinine 0.8 mg/dL (0.8-1.5) 09/17/17 05:43 Estimated GFR > 60 ml/min 09/17/17 05:43 BUN/Creatinine Ratio 15 % 09/17/17 05:43 Glucose 84 mg/dL (75-100) 09/17/17 05:43 POC Glucose 81 (70-105) 09/16/17 18:15 Lactic Acid 1.80 mmol/L (0.7-2.0) 08/28/17 Unknown Calcium 8.4 mg/dL (8.4-10.2) 09/17/17 05:43 Phosphorus 3.50 mg/dL (2.5-4.5) 09/15/17 05:50 Magnesium 2.20 mg/dL (1.7-2.3) 09/15/17 05:50 Total Bilirubin 0.60 mg/dL (0.1-1.2) 09/09/17 07:17 AST 28 units/L (5-40) 09/09/17 07:17 ALT 14 units/L (7-56) 09/09/17 07:17 Alkaline Phosphatase 75 units/L (35-129) 09/09/17 07:17 Total Creatine Kinase 155 units/L (55-170) 08/23/17 10:56 CK-MB (CK-2) 4.4 ng/mL (0.0-4.0) H 08/23/17 10:56 CK-MB (CK-2) Rel Index 2.8 (0-4) 08/23/17 10:56 Troponin T 0.297 ng/mL (0.00-0.029) H* 09/02/17 17:00 C-Reactive Protein 38.40 mg/dL (0.00-1.30) H 08/29/17 20:45 NT-Pro-B Natriuret Pep 76406 pg/mL (0-900) H 08/23/17 02:54 Total Protein 5.9 g/dL (6.3-8.2) L 09/09/17 07:17 Albumin 2.2 g/dL (3.9-5) L 09/09/17 07:17 Albumin/Globulin Ratio 0.6 % 09/09/17 07:17 Triglycerides 69 mg/dL (2-149) 08/23/17 02:54 Cholesterol 125 mg/dL (50-199) 08/23/17 02:54 LDL Cholesterol Direct 77 mg/dL (50-130) 08/23/17 02:54 HDL Cholesterol 36 mg/dL (40-59) L 08/23/17 02:54 Cholesterol/HDL Ratio 3.47 % 08/23/17 02:54 Prostate Specific Ag 96.82 ng/mL (0.00-4.00) H 08/30/17 18:11 Urine Color Yellow (Yellow) 08/28/17 21:00 Urine Turbidity Clear (Clear) 08/28/17 21:00 Urine pH 5.0 (5.0-7.0) 08/28/17 21:00 Ur Specific [place] 1.005 (1.003-1.030) 08/28/17 21:00 Urine Protein <15 mg/dl mg/dL (Negative) 08/28/17 21:00 Urine Glucose (UA) Neg mg/dL (Negative) 08/28/17 21:00 Urine Ketones Neg mg/dL (Negative) 08/28/17 21:00 Urine Blood Lg (Negative) 08/28/17 21:00 Urine Nitrite Neg (Negative) 08/28/17 21:00 Urine Bilirubin Neg (Negative) 08/28/17 21:00 Urine Urobilinogen < 2.0 mg/dL (<2.0) 08/28/17 21:00 Ur Leukocyte Esterase Lg (Negative) 08/28/17 21:00 Urine WBC (Auto) 43.0 /HPF (0.0-6.0) H 08/28/17 21:00 Urine RBC (Auto) > 182.0 /HPF (0.0-6.0) 08/28/17 21:00 U Epithel Cells (Auto) < 1.0 /HPF (0-13.0) 08/28/17 21:00 Uric Acid Crystals 2+ 08/28/17 21:00 Urine Mucus Few /HPF 08/28/17 21:00 Digoxin 0.6 ng/mL (0.9-2.0) L 09/15/17 05:50 Miscellaneous Test See scanned report 09/02/17 17:05 Blood Type B POSITIVE 08/27/17 20:03 Antibody Screen Negative 08/27/17 20:03 Crossmatch See Detail 08/27/17 20:03
[2017-09-17] MEDS: PEPCID PO SCH ×2 (10:01→22:10)
[2017-09-17] MEDS: FLOMAX PO SCH (10:02)
[2017-09-17] MEDS: RisperDAL PO SCH ×2 (10:02→22:10)
[2017-09-17] MEDS: SODIUM CHLORIDE FLUSH SYRINGE 10 ML IV SCH (10:03)
[2017-09-17] MEDS: COZAAR PO SCH (10:04)
--- NOTE | 2017-09-17 10:48 | Progress Note ---
Assessment and Plan Sepsis Acute SBO/Ileus Acute on chronic diastolic heart failure Echo 04/2017 at [place] - LVEF 45-50% with moderate RV dysfunctioin Permanent atrial fibrillation on digoxin and metoprolol for rate control. on xarelto for anticoagulation History of CAD s/p PCI to LAD in 2011 History of ascending aortic aneurysm measuring [address] 03/2016 Chronic DVT on xarelto Chronic renal failure Systemic Hypertension Non-compliance Recommend: Continue current therapy. Subjective Date of service: 09/17/17 Principal diagnosis: afib with RVR and CHF excacerbation Interval history: Pt more alert today. Still confused Objective Vital Signs Temp Pulse Resp BP Pulse Ox 09/17/17 10:04 66 101/60 09/17/17 09:49 100 09/17/17 07:54 98.1 F 66 20 101/60 100 09/17/17 06:24 70 110/60 09/17/17 02:58 99.1 F 90 20 118/62 95 09/16/17 23:33 76 110/60 09/16/17 22:00 95 09/16/17 21:55 98 09/16/17 19:24 98.5 F 54 L 20 108/70 100 09/16/17 17:58 64 123/59 09/16/17 17:51 64 100 09/16/17 17:50 70 123/59 100 09/16/17 17:47 97 H 100 09/16/17 16:10 98.0 F 86 20 118/52 100 09/16/17 14:08 81 105/62 09/16/17 11:36 98.4 F 81 20 105/62 97 - Physical Examination General: No Apparent Distress HEENT: Positive: PERRL Neck: Positive: neck supple, trachea midline. Negative: JVD/HJR, Masses Cardiac: Positive: irregularly irregular Lungs: Positive: clear to auscultation Neuro: Positive: Weakness Abdomen: Positive: Soft, Other Skin: Positive: Clear Extremities: Absent: edema - Labs and Meds Comprehensive Metabolic Panel 09/17/17 Range/Units 05:43 Sodium 138 (137-145) mmol/L Potassium 3.8 (3.6-5.0) mmol/L Chloride 98.9 (98-107) mmol/L Carbon Dioxide 27 (22-30) mmol/L BUN 12 (9-20) mg/dL Creatinine 0.8 (0.8-1.5) mg/dL Glucose 84 (75-100) mg/dL Calcium 8.4 (8.4-10.2) mg/dL - Imaging and Cardiology EKG: image reviewed
[2017-09-17] MEDS: LANOXIN PO SCH ×2 (16:20→16:34)
[2017-09-17] MEDS: DESYREL PO SCH (22:10)
--- NOTE | 2017-09-18 10:26 | Progress Note ---
Assessment and Plan Sepsis Acute SBO/Ileus Acute on chronic diastolic heart failure Echo 04/2017 at [place] - LVEF 45-50% with moderate RV dysfunctioin Permanent atrial fibrillation on digoxin and metoprolol for rate control. History of CAD s/p PCI to LAD in 2011 History of ascending aortic aneurysm measuring [address] 03/2016 Chronic DVT on xarelto as an outpatient Chronic renal failure Systemic Hypertension Non-compliance Continue rate controlling agents for chronic atrial fibrillation. Otherwise, conservative cardiac management. Subjective Date of service: 09/18/17 Principal diagnosis: afib with RVR and CHF excacerbation Interval history: Patient is resting in bed comfortably. Awaits placement. Objective Vital Signs Temp Pulse Resp BP Pulse Ox 09/18/17 08:08 95 09/18/17 07:24 98.9 F 76 20 113/68 89 09/18/17 03:35 98.5 F 68 18 118/52 96 09/17/17 22:05 71 143/64 09/17/17 22:00 96 09/17/17 21:25 99.1 F 71 20 143/64 96 09/17/17 16:34 80 105/55 09/17/17 16:10 98.7 F 80 20 105/55 98 09/17/17 15:00 78 103/56 09/17/17 14:40 98.9 F 78 20 103/56 98 - Physical Examination General: No Apparent Distress HEENT: Positive: PERRL Cardiac: Positive: irregularly irregular Neuro: Positive: Weakness Extremities: Absent: edema
[2017-09-18] MEDS: SODIUM CHLORIDE FLUSH SYRINGE 10 ML IV SCH (11:34)
[2017-09-18] MEDS: COZAAR PO SCH (11:36)
[2017-09-18] MEDS: XARELTO PO SCH (11:36)
[2017-09-18] MEDS: RisperDAL PO SCH ×2 (11:37→23:49)
[2017-09-18] MEDS: FLOMAX PO SCH (11:37)
[2017-09-18] MEDS: LOPRESSOR PO SCH ×3 (11:37→23:49)
[2017-09-18] MEDS: PEPCID PO SCH ×2 (11:37→23:48)
[2017-09-18] MEDS: LANOXIN PO SCH (17:43)
[2017-09-18] MEDS: DESYREL PO SCH (23:48)
--- NOTE | 2017-09-19 08:31 | Progress Note ---
Assessment and Plan Assessment and plan: Acute hypoxemic respiratory failure - Patient extubated on 08/29/17. Continue O2 to maintain sats. - Patient is saturating well Ileus - Resolved - Patient is currently on cardiac and carb consistent diet - We'll DC TPN Toxic metabolic encephalopathy - Resolving - Supportive care Acute on chronic diastolic heart failure - Echo 04/2017 at [place] - LVEF 45-50%, moderate RV dysfunction, RVSP 49 mm Hg and dilated IVC - Cardiology following, recommended conservative cardiac management Permanent atrial fibrillation with RVR - Continue BB and xarelto - Cardiology following. Sepsis - Resolved Complicated UTI with urinary retention. - Resolved -08/24/17 SP cath was placed -08/27/17 CT abd showed free air intraperitoneal, SP cath, high density material in the urinary bladder, prominent prostate and bilateral renal calculi. -08/27/17 taken to the OR for cysto, evacuation of clots and merida placement by due to acute retention and exlap with evacuation of large amount of blood 2 L from abdominal cavity by Surgery. No bowel perforation History of CAD s/p PCI to LAD (2011) low salt diet and medical management History of ascending aortic aneurysm measuring [address] 03/2016 Chronic DVT - Was on xarelto Acute renal failure Etiology likely secondary to Sepsis/ATN Resolved. Nephrology following. Systemic Hypertension Urinary retention - on catheter Bipolar disorder - Psych is following - Resumed home medications Disposition - pending to Subacute rehab placement - Patient Problems (1) Atrial fibrillation with RVR Current Visit: Yes Status: Acute (2) Respiratory failure Current Visit: Yes Status: Acute (3) Shock Current Visit: Yes Status: Acute (4) Acute abdominal pain Current Visit: No Status: Acute (5) Altered mental status Current Visit: No Status: Acute (6) Chronic atrial fibrillation Current Visit: No Status: Acute (7) Cystitis Current Visit: No Status: Acute (8) Discharge planning issues Current Visit: No Status: Acute (9) Bipolar disorder Current Visit: No Status: Chronic Qualifiers: Active/Remission status: remission status unspecified Qualified Code(s): F31.9 - Bipolar disorder, unspecified (10) Coronary artery disease Current Visit: No Status: Chronic Qualifiers: Coronary Disease-Associated Artery/Lesion type: [place] artery Associated angina: without angina (11) History of CVA (cerebrovascular accident) without residual deficits Current Visit: No Status: Chronic History Interval history: Patient was seen and evaluated this morning, Patient was doing well, no new complaints. Hospitalist Physical - Physical exam Narrative exam: Not in cardiopulmonary distress. The patient appeared well nourished and normally developed. Vital signs as documented. Head exam is unremarkable. No scleral icterus . Neck is without jugular venous distension, thyromegaly, or carotid bruits. Lungs are clear to auscultation. Cardiac exam reveals regular rate and Rhythm. First and second heart sounds normal. No murmurs, rubs or gallops. Abdominal exam soft and nontender, normoactive bowel sounds . Extremities are nonedematous and both femoral and pedal pulses are normal. 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 patient was continuously moaning. - Constitutional Vitals: Temp Pulse Resp BP Pulse Ox 98.5 F 68 20 100/56 99 09/18/17 21:12 09/18/17 17:49 09/18/17 21:12 09/18/17 21:12 09/18/17 19:29 General appearance: Present: no acute distress Results - Labs CBC & Chem 7: 09/07/17 05:11 09/17/17 05:43 Labs: Laboratory Last Values WBC 10.9 K/mm3 (4.5-11.0) 09/07/17 05:11 RBC 3.45 M/mm3 (3.65-5.03) L 09/07/17 05:11 Hgb 8.2 gm/dl (11.8-15.2) L 09/07/17 05:11 Hct 25.1 % (35.5-45.6) L 09/07/17 05:11 MCV 73 fl (84-94) L 09/07/17 05:11 MCH 24 pg (28-32) L 09/07/17 05:11 MCHC 33 % (32-34) 09/07/17 05:11 RDW 23.2 % (13.2-15.2) H 09/07/17 05:11 Plt Count 194 K/mm3 (140-440) 09/07/17 05:11 Lymph % (Auto) 6.3 % (13.4-35.0) L 09/07/17 05:11 [place]ake % (Auto) 3.6 % (0.0-7.3) 09/07/17 05:11 Eos % (Auto) 2.9 % (0.0-4.3) 09/07/17 05:11 Baso % (Auto) 0.8 % (0.0-1.8) 09/07/17 05:11 Lymph # 0.7 K/mm3 (1.2-5.4) L 09/07/17 05:11 Leake # 0.4 K/mm3 (0.0-0.8) 09/07/17 05:11 Eos # 0.3 K/mm3 (0.0-0.4) 09/07/17 05:11 Baso # 0.1 K/mm3 (0.0-0.1) 09/07/17 05:11 Add Manual Diff Complete 09/01/17 07:02 Total Counted 100 09/01/17 07:02 Seg Neutrophils % 86.4 % (40.0-70.0) H 09/07/17 05:11 Seg Neuts % (Manual) 93.0 % (40.0-70.0) H 09/01/17 07:02 Band Neutrophils % 0 % 09/01/17 07:02 Lymphocytes % (Manual) 3.0 % (13.4-35.0) L 09/01/17 07:02 Reactive Lymphs % (Man) 0 % 09/01/17 07:02 Monocytes % (Manual) 2.0 % (0.0-7.3) 09/01/17 07:02 Eosinophils % (Manual) 2.0 % (0.0-4.3) 09/01/17 07:02 Basophils % (Manual) 0 % (0.0-1.8) 09/01/17 07:02 Metamyelocytes % 0 % 09/01/17 07:02 Myelocytes % 0 % 09/01/17 07:02 Promyelocytes % 0 % 09/01/17 07:02 Blast Cells % 0 % 09/01/17 07:02 Nucleated RBC % Not Reportable 09/01/17 07:02 Seg Neutrophils # 9.5 K/mm3 (1.8-7.7) H 09/07/17 05:11 Seg Neutrophils # Man 12.6 K/mm3 (1.8-7.7) H 09/01/17 07:02 Band Neutrophils # 0.0 K/mm3 09/01/17 07:02 Lymphocytes # (Manual) 0.4 K/mm3 (1.2-5.4) L 09/01/17 07:02 Abs React Lymphs (Man) 0.0 K/mm3 09/01/17 07:02 Monocytes # (Manual) 0.3 K/mm3 (0.0-0.8) 09/01/17 07:02 Eosinophils # (Manual) 0.3 K/mm3 (0.0-0.4) 09/01/17 07:02 Basophils # (Manual) 0.0 K/mm3 (0.0-0.1) 09/01/17 07:02 Metamyelocytes # 0.0 K/mm3 09/01/17 07:02 Myelocytes # 0.0 K/mm3 09/01/17 07:02 Promyelocytes # 0.0 K/mm3 09/01/17 07:02 Blast Cells # 0.0 K/mm3 09/01/17 07:02 WBC Morphology Not Reportable 09/01/17 07:02 Hypersegmented Neuts Not Reportable 09/01/17 07:02 Hyposegmented Neuts Not Reportable 09/01/17 07:02 Hypogranular Neuts Not Reportable 09/01/17 07:02 Smudge Cells Not Reportable 09/01/17 07:02 Toxic Granulation Not Reportable 09/01/17 07:02 Toxic Vacuolation Not Reportable 09/01/17 07:02 Dohle Bodies Not Reportable 09/01/17 07:02 Pelger-Huet Anomaly Not Reportable 09/01/17 07:02 Cande Rods Not Reportable 09/01/17 07:02 Platelet Estimate Cons 09/01/17 07:02 Clumped Platelets Not Reportable 09/01/17 07:02 Plt Clumps, EDTA Not Reportable 09/01/17 07:02 Large Platelets Not Reportable 09/01/17 07:02 Giant Platelets Not Reportable 09/01/17 07:02 Platelet Satelliting Not Reportable 09/01/17 07:02 Plt Morphology Comment Not Reportable 09/01/17 07:02 RBC Morphology Not Reportable 09/01/17 07:02 Dimorphic RBCs Not Reportable 09/01/17 07:02 Polychromasia Not Reportable 09/01/17 07:02 Hypochromasia 2+ 09/01/17 07:02 Poikilocytosis 2+ 09/01/17 07:02 Anisocytosis 2+ 09/01/17 07:02 Microcytosis Not Reportable 09/01/17 07:02 Macrocytosis Not Reportable 09/01/17 07:02 Spherocytes Not Reportable 09/01/17 07:02 Pappenheimer Bodies Not Reportable 09/01/17 07:02 Sickle Cells Not Reportable 09/01/17 07:02 Target Cells Few 09/01/17 07:02 Tear Drop Cells Not Reportable 09/01/17 07:02 Ovalocytes Not Reportable 09/01/17 07:02 Helmet Cells Not Reportable 09/01/17 07:02 Morrell-Lolo Bodies Not Reportable 09/01/17 07:02 Cade Rings Not Reportable 09/01/17 07:02 Geddes Cells 1+ 09/01/17 07:02 Bite Cells Not Reportable 09/01/17 07:02 Crenated Cell Not Reportable 09/01/17 07:02 Elliptocytes Not Reportable 09/01/17 07:02 Acanthocytes (Spur) 1+ 09/01/17 07:02 Rouleaux Not Reportable 09/01/17 07:02 Hemoglobin C Crystals Not Reportable 09/01/17 07:02 Schistocytes Few 09/01/17 07:02 Malaria parasites Not Reportable 09/01/17 07:02 Jonny Bodies Not Reportable 09/01/17 07:02 Hem Pathologist Commnt No 09/01/17 07:02 PT 22.7 Sec. (12.2-14.9) H 09/02/17 17:00 INR 1.87 (0.87-1.13) H 09/02/17 17:00 APTT 37.7 Sec. (24.2-36.6) H 09/02/17 17:00 POC ABG pH 7.435 (7.35-7.45) 08/29/17 10:58 POC ABG pCO2 34.8 (35-45) L 08/29/17 10:58 POC ABG pO2 93 (80-105) 08/29/17 10:58 POC ABG HCO3 23.4 08/29/17 10:58 POC ABG Total CO2 24 08/29/17 10:58 POC ABG O2 Sat 98 08/29/17 10:58 POC ABG Base Excess -1 08/29/17 10:58 FiO2 28 % 08/29/17 10:58 Sodium 138 mmol/L (137-145) 09/17/17 05:43 Potassium 3.8 mmol/L (3.6-5.0) 09/17/17 05:43 Chloride 98.9 mmol/L (98-107) 09/17/17 05:43 Carbon Dioxide 27 mmol/L (22-30) 09/17/17 05:43 Anion Gap 16 mmol/L 09/17/17 05:43 BUN 12 mg/dL (9-20) 09/17/17 05:43 Creatinine 0.8 mg/dL (0.8-1.5) 09/17/17 05:43 Estimated GFR > 60 ml/min 09/17/17 05:43 BUN/Creatinine Ratio 15 % 09/17/17 05:43 Glucose 84 mg/dL (75-100) 09/17/17 05:43 POC Glucose 131 (70-105) H 09/17/17 11:55 Lactic Acid 1.80 mmol/L (0.7-2.0) 08/28/17 Unknown Calcium 8.4 mg/dL (8.4-10.2) 09/17/17 05:43 Phosphorus 3.50 mg/dL (2.5-4.5) 09/15/17 05:50 Magnesium 2.20 mg/dL (1.7-2.3) 09/15/17 05:50 Total Bilirubin 0.60 mg/dL (0.1-1.2) 09/09/17 07:17 AST 28 units/L (5-40) 09/09/17 07:17 ALT 14 units/L (7-56) 09/09/17 07:17 Alkaline Phosphatase 75 units/L (35-129) 09/09/17 07:17 Total Creatine Kinase 155 units/L (55-170) 08/23/17 10:56 CK-MB (CK-2) 4.4 ng/mL (0.0-4.0) H 08/23/17 10:56 CK-MB (CK-2) Rel Index 2.8 (0-4) 08/23/17 10:56 Troponin T 0.297 ng/mL (0.00-0.029) H* 09/02/17 17:00 C-Reactive Protein 38.40 mg/dL (0.00-1.30) H 08/29/17 20:45 NT-Pro-B Natriuret Pep 28002 pg/mL (0-900) H 08/23/17 02:54 Total Protein 5.9 g/dL (6.3-8.2) L 09/09/17 07:17 Albumin 2.2 g/dL (3.9-5) L 09/09/17 07:17 Albumin/Globulin Ratio 0.6 % 09/09/17 07:17 Triglycerides 69 mg/dL (2-149) 08/23/17 02:54 Cholesterol 125 mg/dL (50-199) 08/23/17 02:54 LDL Cholesterol Direct 77 mg/dL (50-130) 08/23/17 02:54 HDL Cholesterol 36 mg/dL (40-59) L 08/23/17 02:54 Cholesterol/HDL Ratio 3.47 % 08/23/17 02:54 Prostate Specific Ag 96.82 ng/mL (0.00-4.00) H 08/30/17 18:11 Urine Color Yellow (Yellow) 08/28/17 21:00 Urine Turbidity Clear (Clear) 08/28/17 21:00 Urine pH 5.0 (5.0-7.0) 08/28/17 21:00 Ur Specific [place] 1.005 (1.003-1.030) 08/28/17 21:00 Urine Protein <15 mg/dl mg/dL (Negative) 08/28/17 21:00 Urine Glucose (UA) Neg mg/dL (Negative) 08/28/17 21:00 Urine Ketones Neg mg/dL (Negative) 08/28/17 21:00 Urine Blood Lg (Negative) 08/28/17 21:00 Urine Nitrite Neg (Negative) 08/28/17 21:00 Urine Bilirubin Neg (Negative) 08/28/17 21:00 Urine Urobilinogen < 2.0 mg/dL (<2.0) 08/28/17 21:00 Ur Leukocyte Esterase Lg (Negative) 08/28/17 21:00 Urine WBC (Auto) 43.0 /HPF (0.0-6.0) H 08/28/17 21:00 Urine RBC (Auto) > 182.0 /HPF (0.0-6.0) 08/28/17 21:00 U Epithel Cells (Auto) < 1.0 /HPF (0-13.0) 08/28/17 21:00 Uric Acid Crystals 2+ 08/28/17 21:00 Urine Mucus Few /HPF 08/28/17 21:00 Digoxin 0.6 ng/mL (0.9-2.0) L 09/15/17 05:50 Miscellaneous Test See scanned report 09/02/17 17:05 Blood Type B POSITIVE 08/27/17 20:03 Antibody Screen Negative 08/27/17 20:03 Crossmatch See Detail 08/27/17 20:03
--- NOTE | 2017-09-19 09:06 | Progress Note ---
Subjective Date of service: 09/19/17 Principal diagnosis: afib with RVR and CHF excacerbation Interval history: clot retention s/p evacuation 08-27-17 spt removed home with merida to leg bag & big bag (plug 3 way side port) continue flomax outpt urodynamics - office will set up Objective - Constitutional Vitals: Vital Signs - 12hr 09/18/17 09/19/17 09/19/17 21:12 03:43 08:06 Temperature 98.5 F 97.4 F L 98.9 F Pulse Rate 45 L 89 Respiratory 20 20 20 Rate Blood Pressure 100/56 131/68 151/68 O2 Sat by Pulse 98 96 Oximetry - Labs CBC & Chem 7: 09/07/17 05:11 09/17/17 05:43
[2017-09-19] MEDS: FLOMAX PO SCH (10:12)
[2017-09-19] MEDS: RisperDAL PO SCH ×2 (10:13→21:48)
[2017-09-19] MEDS: TYLENOL PO PRN (10:13)
[2017-09-19] MEDS: PEPCID PO SCH ×2 (10:13→21:48)
[2017-09-19] MEDS: COZAAR PO SCH (10:14)
[2017-09-19] MEDS: XARELTO PO SCH (10:15)
--- NOTE | 2017-09-19 11:16 | Progress Note ---
Assessment and Plan Sepsis Acute SBO/Ileus Acute on chronic diastolic heart failure Echo 04/2017 at [place] - LVEF 45-50% with moderate RV dysfunctioin Permanent atrial fibrillation on digoxin and metoprolol for rate control. History of CAD s/p PCI to LAD in 2011 History of ascending aortic aneurysm measuring [address] 03/2016 Chronic DVT on xarelto as an outpatient Chronic renal failure Systemic Hypertension Non-compliance Continue rate controlling agents for chronic atrial fibrillation. Otherwise, conservative cardiac management. Subjective Date of service: 09/19/17 Principal diagnosis: afib with RVR and CHF excacerbation Interval history: Patient is resting in bed comfortably. PT is at bedside. Awaits placement. Objective Vital Signs Temp Pulse Resp BP Pulse Ox 09/19/17 10:14 89 151/68 09/19/17 08:06 98.9 F 89 20 151/68 96 09/19/17 03:43 97.4 F L 45 L 20 131/68 98 09/18/17 21:12 98.5 F 20 100/56 09/18/17 19:29 99 09/18/17 17:49 68 128/67 09/18/17 17:43 63 128/67 09/18/17 13:53 99.3 F 75 18 115/61 95 09/18/17 11:36 58 L 106/49 - Physical Examination General: No Apparent Distress HEENT: Positive: PERRL Cardiac: Positive: irregularly irregular Neuro: Positive: Weakness Extremities: Absent: edema
--- NOTE | 2017-09-19 12:48 | Progress Note ---
Assessment and Plan Assessment and plan: Acute hypoxemic respiratory failure - Patient extubated on 08/29/17. Continue O2 to maintain sats. - Patient is saturating well Ileus - Resolved - Patient is currently on cardiac and carb consistent diet - We'll DC TPN Toxic metabolic encephalopathy - Resolving - Supportive care Acute on chronic diastolic heart failure - Echo 04/2017 at [place] - LVEF 45-50%, moderate RV dysfunction, RVSP 49 mm Hg and dilated IVC - Cardiology following, recommended conservative cardiac management Permanent atrial fibrillation with RVR - Continue BB and xarelto - Cardiology following. Sepsis - Resolved Complicated UTI with urinary retention. - Resolved -08/24/17 SP cath was placed -08/27/17 CT abd showed free air intraperitoneal, SP cath, high density material in the urinary bladder, prominent prostate and bilateral renal calculi. -08/27/17 taken to the OR for cysto, evacuation of clots and merida placement by due to acute retention and exlap with evacuation of large amount of blood 2 L from abdominal cavity by Surgery. No bowel perforation - Currently on SPC is changed to [place] catheter History of CAD s/p PCI to LAD (2011) low salt diet and medical management History of ascending aortic aneurysm measuring [address] 03/2016 Chronic DVT - Was on xarelto Acute renal failure Etiology likely secondary to Sepsis/ATN Resolved. Nephrology following. Systemic Hypertension Urinary retention - on catheter Bipolar disorder - Psych is following - Resumed home medications Disposition - pending to Subacute rehab placement - Patient Problems (1) Atrial fibrillation with RVR Current Visit: Yes Status: Acute (2) Respiratory failure Current Visit: Yes Status: Acute (3) Shock Current Visit: Yes Status: Acute (4) Acute abdominal pain Current Visit: No Status: Acute (5) Altered mental status Current Visit: No Status: Acute (6) Chronic atrial fibrillation Current Visit: No Status: Acute (7) Cystitis Current Visit: No Status: Acute (8) Discharge planning issues Current Visit: No Status: Acute (9) Bipolar disorder Current Visit: No Status: Chronic Qualifiers: Active/Remission status: remission status unspecified Qualified Code(s): F31.9 - Bipolar disorder, unspecified (10) Coronary artery disease Current Visit: No Status: Chronic Qualifiers: Coronary Disease-Associated Artery/Lesion type: [place] artery Associated angina: without angina (11) History of CVA (cerebrovascular accident) without residual deficits Current Visit: No Status: Chronic History Interval history: Patient was seen and evaluated this morning, Patient was doing well, no new complaints. Hospitalist Physical - Physical exam Narrative exam: Not in cardiopulmonary distress. The patient appeared well nourished and normally developed. Vital signs as documented. Head exam is unremarkable. No scleral icterus . Neck is without jugular venous distension, thyromegaly, or carotid bruits. Lungs are clear to auscultation. Cardiac exam reveals regular rate and Rhythm. First and second heart sounds normal. No murmurs, rubs or gallops. Abdominal exam soft and nontender, normoactive bowel sounds . Extremities are nonedematous and both femoral and pedal pulses are normal. COORDINATOR HOTELS: Alert and oriented 3. - Constitutional Vitals: Temp Pulse Resp BP Pulse Ox 98.9 F 89 20 151/68 96 09/19/17 08:06 09/19/17 10:14 09/19/17 08:06 09/19/17 10:14 09/19/17 08:06 General appearance: Present: no acute distress Results - Labs CBC & Chem 7: 09/07/17 05:11 09/17/17 05:43 Labs: Laboratory Last Values WBC 10.9 K/mm3 (4.5-11.0) 09/07/17 05:11 RBC 3.45 M/mm3 (3.65-5.03) L 09/07/17 05:11 Hgb 8.2 gm/dl (11.8-15.2) L 09/07/17 05:11 Hct 25.1 % (35.5-45.6) L 09/07/17 05:11 MCV 73 fl (84-94) L 09/07/17 05:11 MCH 24 pg (28-32) L 09/07/17 05:11 MCHC 33 % (32-34) 09/07/17 05:11 RDW 23.2 % (13.2-15.2) H 09/07/17 05:11 Plt Count 194 K/mm3 (140-440) 09/07/17 05:11 Lymph % (Auto) 6.3 % (13.4-35.0) L 09/07/17 05:11 [place] % (Auto) 3.6 % (0.0-7.3) 09/07/17 05:11 Eos % (Auto) 2.9 % (0.0-4.3) 09/07/17 05:11 Baso % (Auto) 0.8 % (0.0-1.8) 09/07/17 05:11 Lymph # 0.7 K/mm3 (1.2-5.4) L 09/07/17 05:11 [place] # 0.4 K/mm3 (0.0-0.8) 09/07/17 05:11 Eos # 0.3 K/mm3 (0.0-0.4) 09/07/17 05:11 Baso # 0.1 K/mm3 (0.0-0.1) 09/07/17 05:11 Add Manual Diff Complete 09/01/17 07:02 Total Counted 100 09/01/17 07:02 Seg Neutrophils % 86.4 % (40.0-70.0) H 09/07/17 05:11 Seg Neuts % (Manual) 93.0 % (40.0-70.0) H 09/01/17 07:02 Band Neutrophils % 0 % 09/01/17 07:02 Lymphocytes % (Manual) 3.0 % (13.4-35.0) L 09/01/17 07:02 Reactive Lymphs % (Man) 0 % 09/01/17 07:02 Monocytes % (Manual) 2.0 % (0.0-7.3) 09/01/17 07:02 Eosinophils % (Manual) 2.0 % (0.0-4.3) 09/01/17 07:02 Basophils % (Manual) 0 % (0.0-1.8) 09/01/17 07:02 Metamyelocytes % 0 % 09/01/17 07:02 Myelocytes % 0 % 09/01/17 07:02 Promyelocytes % 0 % 09/01/17 07:02 Blast Cells % 0 % 09/01/17 07:02 Nucleated RBC % Not Reportable 09/01/17 07:02 Seg Neutrophils # 9.5 K/mm3 (1.8-7.7) H 09/07/17 05:11 Seg Neutrophils # Man 12.6 K/mm3 (1.8-7.7) H 09/01/17 07:02 Band Neutrophils # 0.0 K/mm3 07/13/18 07:02 Lymphocytes # (Manual) 0.4 K/mm3 (1.2-5.4) L 09/01/17 07:02 Abs React Lymphs (Man) 0.0 K/mm3 09/01/17 07:02 Monocytes # (Manual) 0.3 K/mm3 (0.0-0.8) 09/01/17 07:02 Eosinophils # (Manual) 0.3 K/mm3 (0.0-0.4) 09/01/17 07:02 Basophils # (Manual) 0.0 K/mm3 (0.0-0.1) 09/01/17 07:02 Metamyelocytes # 0.0 K/mm3 09/01/17 07:02 Myelocytes # 0.0 K/mm3 09/01/17 07:02 Promyelocytes # 0.0 K/mm3 09/01/17 07:02 Blast Cells # 0.0 K/mm3 09/01/17 07:02 WBC Morphology Not Reportable 09/01/17 07:02 Hypersegmented Neuts Not Reportable 09/01/17 07:02 Hyposegmented Neuts Not Reportable 09/01/17 07:02 Hypogranular Neuts Not Reportable 09/01/17 07:02 Smudge Cells Not Reportable 09/01/17 07:02 Toxic Granulation Not Reportable 09/01/17 07:02 Toxic Vacuolation Not Reportable 09/01/17 07:02 Dohle Bodies Not Reportable 09/01/17 07:02 Pelger-Huet Anomaly Not Reportable 09/01/17 07:02 Cande Rods Not Reportable 09/01/17 07:02 Platelet Estimate Cons 09/01/17 07:02 Clumped Platelets Not Reportable 09/01/17 07:02 Plt Clumps, EDTA Not Reportable 09/01/17 07:02 Large Platelets Not Reportable 09/01/17 07:02 Giant Platelets Not Reportable 09/01/17 07:02 Platelet Satelliting Not Reportable 09/01/17 07:02 Plt Morphology Comment Not Reportable 09/01/17 07:02 RBC Morphology Not Reportable 09/01/17 07:02 Dimorphic RBCs Not Reportable 09/01/17 07:02 Polychromasia Not Reportable 09/01/17 07:02 Hypochromasia 2+ 09/01/17 07:02 Poikilocytosis 2+ 09/01/17 07:02 Anisocytosis 2+ 09/01/17 07:02 Microcytosis Not Reportable 09/01/17 07:02 Macrocytosis Not Reportable 09/01/17 07:02 Spherocytes Not Reportable 09/01/17 07:02 Pappenheimer Bodies Not Reportable 09/01/17 07:02 Sickle Cells Not Reportable 09/01/17 07:02 Target Cells Few 09/01/17 07:02 Tear Drop Cells Not Reportable 09/01/17 07:02 Ovalocytes Not Reportable 09/01/17 07:02 Helmet Cells Not Reportable 09/01/17 07:02 [place] Bodies Not Reportable 09/01/17 07:02 [place] Rings Not Reportable 09/01/17 07:02 [place] Cells 1+ 09/01/17 07:02 Bite Cells Not Reportable 09/01/17 07:02 Crenated Cell Not Reportable 09/01/17 07:02 Elliptocytes Not Reportable 09/01/17 07:02 Acanthocytes (Spur) 1+ 09/01/17 07:02 Rouleaux Not Reportable 09/01/17 07:02 Hemoglobin C Crystals Not Reportable 09/01/17 07:02 Schistocytes Few 09/01/17 07:02 Malaria parasites Not Reportable 09/01/17 07:02 Jonny Bodies Not Reportable 09/01/17 07:02 Hem Pathologist Commnt No 09/01/17 07:02 PT 22.7 Sec. (12.2-14.9) H 09/02/17 17:00 INR 1.87 (0.87-1.13) H 09/02/17 17:00 APTT 37.7 Sec. (24.2-36.6) H 09/02/17 17:00 POC ABG pH 7.435 (7.35-7.45) 08/29/17 10:58 POC ABG pCO2 34.8 (35-45) L 08/29/17 10:58 POC ABG pO2 93 (80-105) 08/29/17 10:58 POC ABG HCO3 23.4 08/29/17 10:58 POC ABG Total CO2 24 08/29/17 10:58 POC ABG O2 Sat 98 08/29/17 10:58 POC ABG Base Excess -1 08/29/17 10:58 FiO2 28 % 08/29/17 10:58 Sodium 138 mmol/L (137-145) 09/17/17 05:43 Potassium 3.8 mmol/L (3.6-5.0) 09/17/17 05:43 Chloride 98.9 mmol/L (98-107) 09/17/17 05:43 Carbon Dioxide 27 mmol/L (22-30) 09/17/17 05:43 Anion Gap 16 mmol/L 09/17/17 05:43 BUN 12 mg/dL (9-20) 09/17/17 05:43 Creatinine 0.8 mg/dL (0.8-1.5) 09/17/17 05:43 Estimated GFR > 60 ml/min 09/17/17 05:43 BUN/Creatinine Ratio 15 % 09/17/17 05:43 Glucose 84 mg/dL (75-100) 09/17/17 05:43 POC Glucose 108 (70-105) H 09/19/17 12:03 Lactic Acid 1.80 mmol/L (0.7-2.0) 08/28/17 Unknown Calcium 8.4 mg/dL (8.4-10.2) 09/17/17 05:43 Phosphorus 3.50 mg/dL (2.5-4.5) 09/15/17 05:50 Magnesium 2.20 mg/dL (1.7-2.3) 09/15/17 05:50 Total Bilirubin 0.60 mg/dL (0.1-1.2) 09/09/17 07:17 AST 28 units/L (5-40) 09/09/17 07:17 ALT 14 units/L (7-56) 09/09/17 07:17 Alkaline Phosphatase 75 units/L (35-129) 09/09/17 07:17 Total Creatine Kinase 155 units/L (55-170) 08/23/17 10:56 CK-MB (CK-2) 4.4 ng/mL (0.0-4.0) H 08/23/17 10:56 CK-MB (CK-2) Rel Index 2.8 (0-4) 08/23/17 10:56 Troponin T 0.297 ng/mL (0.00-0.029) H* 09/02/17 17:00 C-Reactive Protein 38.40 mg/dL (0.00-1.30) H 08/29/17 20:45 NT-Pro-B Natriuret Pep 56438 pg/mL (0-900) H 08/23/17 02:54 Total Protein 5.9 g/dL (6.3-8.2) L 09/09/17 07:17 Albumin 2.2 g/dL (3.9-5) L 09/09/17 07:17 Albumin/Globulin Ratio 0.6 % 09/09/17 07:17 Triglycerides 69 mg/dL (2-149) 08/23/17 02:54 Cholesterol 125 mg/dL (50-199) 08/23/17 02:54 LDL Cholesterol Direct 77 mg/dL (50-130) 08/23/17 02:54 HDL Cholesterol 36 mg/dL (40-59) L 08/23/17 02:54 Cholesterol/HDL Ratio 3.47 % 08/23/17 02:54 Prostate Specific Ag 96.82 ng/mL (0.00-4.00) H 08/30/17 18:11 Urine Color Yellow (Yellow) 08/28/17 21:00 Urine Turbidity Clear (Clear) 08/28/17 21:00 Urine pH 5.0 (5.0-7.0) 08/28/17 21:00 Ur Specific [place] 1.005 (1.003-1.030) 08/28/17 21:00 Urine Protein <15 mg/dl mg/dL (Negative) 08/28/17 21:00 Urine Glucose (UA) Neg mg/dL (Negative) 08/28/17 21:00 Urine Ketones Neg mg/dL (Negative) 08/28/17 21:00 Urine Blood Lg (Negative) 08/28/17 21:00 Urine Nitrite Neg (Negative) 08/28/17 21:00 Urine Bilirubin Neg (Negative) 08/28/17 21:00 Urine Urobilinogen < 2.0 mg/dL (<2.0) 08/28/17 21:00 Ur Leukocyte Esterase Lg (Negative) 08/28/17 21:00 Urine WBC (Auto) 43.0 /HPF (0.0-6.0) H 08/28/17 21:00 Urine RBC (Auto) > 182.0 /HPF (0.0-6.0) 08/28/17 21:00 U Epithel Cells (Auto) < 1.0 /HPF (0-13.0) 08/28/17 21:00 Uric Acid Crystals 2+ 08/28/17 21:00 Urine Mucus Few /HPF 08/28/17 21:00 Digoxin 0.6 ng/mL (0.9-2.0) L 09/15/17 05:50 Miscellaneous Test See scanned report 09/02/17 17:05 Blood Type B POSITIVE 08/27/17 20:03 Antibody Screen Negative 08/27/17 20:03 Crossmatch See Detail 08/27/17 20:03
[2017-09-19] MEDS: LOPRESSOR PO SCH ×2 (14:00→23:19)
[2017-09-19] MEDS: LANOXIN PO SCH (18:24)
[2017-09-19] MEDS: SODIUM CHLORIDE FLUSH SYRINGE 10 ML IV SCH ×3 (18:44→21:52)
[2017-09-19] MEDS ORDERED: MORPHINE IM ONE (20:56)
[2017-09-19] MEDS: DESYREL PO SCH (21:49)
[2017-09-20] MEDS: LOPRESSOR PO SCH ×2 (05:41→13:55)
--- NOTE | 2017-09-20 09:17 | Progress Note ---
Assessment and Plan Sepsis Acute SBO/Ileus Acute on chronic diastolic heart failure Echo 04/2017 at [place] - LVEF 45-50% with moderate RV dysfunctioin Permanent atrial fibrillation on digoxin and metoprolol for rate control. History of CAD s/p PCI to LAD in 2011 History of ascending aortic aneurysm measuring [address] 03/2016 Chronic DVT on xarelto as an outpatient Chronic renal failure Systemic Hypertension Non-compliance Continue rate controlling agents for chronic atrial fibrillation. Otherwise, conservative cardiac management. Subjective Date of service: 09/20/17 Principal diagnosis: afib with RVR and CHF excacerbation Interval history: Patient is resting in bed comfortably. He has no cardiac complaints. Awaits placement. Objective Vital Signs Temp Pulse Pulse Pulse Resp BP BP 09/20/17 08:58 98.5 F 62 24 106/68 09/20/17 05:41 74 136/66 09/20/17 01:43 98.5 F 74 16 136/66 09/19/17 22:00 58 L 67 16 09/19/17 19:09 98.6 F 67 16 121/56 09/19/17 18:24 69 126/85 09/19/17 14:03 61 09/19/17 14:02 98.0 F 55 L 20 102/68 09/19/17 14:00 89 102/68 09/19/17 10:14 89 151/68 09/19/17 10:00 89 Pulse Ox 09/20/17 08:58 99 09/20/17 05:41 09/20/17 01:43 90 09/19/17 22:00 98 09/19/17 19:09 98 09/19/17 18:24 09/19/17 14:03 96 09/19/17 14:02 89 09/19/17 14:00 09/19/17 10:14 09/19/17 10:00 96 - Physical Examination General: No Apparent Distress HEENT: Positive: PERRL Cardiac: Positive: irregularly irregular Neuro: Positive: Weakness Extremities: Absent: edema
[2017-09-20] MEDS: PEPCID PO SCH (10:01)
[2017-09-20] MEDS: XARELTO PO SCH (10:01)
[2017-09-20] MEDS: COZAAR PO SCH (10:01)
[2017-09-20] MEDS: FLOMAX PO SCH (10:01)
[2017-09-20] MEDS: SODIUM CHLORIDE FLUSH SYRINGE 10 ML IV SCH ×2 (10:02→10:03)
[2017-09-20] MEDS: RisperDAL PO SCH (10:02)
[2017-09-20] MEDS ORDERED: HALDOL IV PRN (11:33)
--- NOTE | 2017-09-20 12:47 | Progress Note ---
Assessment and Plan Assessment and plan: Acute hypoxemic respiratory failure - Patient extubated on 08/29/17. - Patient is saturating well on room air Ileus - Resolved Toxic metabolic encephalopathy - Resolved Acute on chronic diastolic heart failure - Echo 04/2017 at [place] - LVEF 45-50%, moderate RV dysfunction, RVSP 49 mm Hg and dilated IVC - Cardiology following, recommended conservative cardiac management Permanent atrial fibrillation with RVR - Continue BB and xarelto - Cardiology following. Sepsis - Resolved Complicated UTI with urinary retention. - Resolved History of CAD s/p PCI to LAD (2011) - Stable History of ascending aortic aneurysm - measuring [address] 03/2016 Acute renal failure - Resolved Systemic Hypertension Urinary retention - on [place] catheter Bipolar disorder - Continue home medications Disposition - pending to Subacute rehab placement - Patient Problems (1) Atrial fibrillation with RVR Current Visit: Yes Status: Acute (2) Respiratory failure Current Visit: Yes Status: Acute (3) Shock Current Visit: Yes Status: Acute (4) Acute abdominal pain Current Visit: No Status: Acute (5) Altered mental status Current Visit: No Status: Acute (6) Chronic atrial fibrillation Current Visit: No Status: Acute (7) Cystitis Current Visit: No Status: Acute (8) Discharge planning issues Current Visit: No Status: Acute (9) Bipolar disorder Current Visit: No Status: Chronic Qualifiers: Active/Remission status: remission status unspecified Qualified Code(s): F31.9 - Bipolar disorder, unspecified (10) Coronary artery disease Current Visit: No Status: Chronic Qualifiers: Coronary Disease-Associated Artery/Lesion type: [place] artery Associated angina: without angina (11) History of CVA (cerebrovascular accident) without residual deficits Current Visit: No Status: Chronic History Interval history: Patient was seen and evaluated this morning, Patient was doing well, no new complaints. Hospitalist Physical - Physical exam Narrative exam: Not in cardiopulmonary distress. The patient appeared well nourished and normally developed. Vital signs as documented. Head exam is unremarkable. No scleral icterus . Neck is without jugular venous distension, thyromegaly, or carotid bruits. Lungs are clear to auscultation. Cardiac exam reveals regular rate and Rhythm. First and second heart sounds normal. No murmurs, rubs or gallops. Abdominal exam soft and nontender, normoactive bowel sounds . Extremities are nonedematous and both femoral and pedal pulses are normal. GARAGE MANAGER: Alert and oriented 3. - Constitutional Vitals: Temp Pulse Resp BP Pulse Ox 98.5 F 62 24 106/68 99 09/20/17 08:58 09/20/17 08:58 09/20/17 08:58 09/20/17 08:58 09/20/17 08:58 General appearance: Present: no acute distress Results - Labs CBC & Chem 7: 09/07/17 05:11 09/17/17 05:43 Labs: Laboratory Last Values WBC 10.9 K/mm3 (4.5-11.0) 09/07/17 05:11 RBC 3.45 M/mm3 (3.65-5.03) L 09/07/17 05:11 Hgb 8.2 gm/dl (11.8-15.2) L 09/07/17 05:11 Hct 25.1 % (35.5-45.6) L 09/07/17 05:11 MCV 73 fl (84-94) L 09/07/17 05:11 MCH 24 pg (28-32) L 09/07/17 05:11 MCHC 33 % (32-34) 09/07/17 05:11 RDW 23.2 % (13.2-15.2) H 09/07/17 05:11 Plt Count 194 K/mm3 (140-440) 09/07/17 05:11 Lymph % (Auto) 6.3 % (13.4-35.0) L 09/07/17 05:11 [place] % (Auto) 3.6 % (0.0-7.3) 09/07/17 05:11 Eos % (Auto) 2.9 % (0.0-4.3) 09/07/17 05:11 Baso % (Auto) 0.8 % (0.0-1.8) 09/07/17 05:11 Lymph # 0.7 K/mm3 (1.2-5.4) L 09/07/17 05:11 [place] # 0.4 K/mm3 (0.0-0.8) 09/07/17 05:11 Eos # 0.3 K/mm3 (0.0-0.4) 09/07/17 05:11 Baso # 0.1 K/mm3 (0.0-0.1) 09/07/17 05:11 Add Manual Diff Complete 09/01/17 07:02 Total Counted 100 09/01/17 07:02 Seg Neutrophils % 86.4 % (40.0-70.0) H 09/07/17 05:11 Seg Neuts % (Manual) 93.0 % (40.0-70.0) H 09/01/17 07:02 Band Neutrophils % 0 % 09/01/17 07:02 Lymphocytes % (Manual) 3.0 % (13.4-35.0) L 09/01/17 07:02 Reactive Lymphs % (Man) 0 % 09/01/17 07:02 Monocytes % (Manual) 2.0 % (0.0-7.3) 09/01/17 07:02 Eosinophils % (Manual) 2.0 % (0.0-4.3) 09/01/17 07:02 Basophils % (Manual) 0 % (0.0-1.8) 09/01/17 07:02 Metamyelocytes % 0 % 09/01/17 07:02 Myelocytes % 0 % 09/01/17 07:02 Promyelocytes % 0 % 09/01/17 07:02 Blast Cells % 0 % 09/01/17 07:02 Nucleated RBC % Not Reportable 09/01/17 07:02 Seg Neutrophils # 9.5 K/mm3 (1.8-7.7) H 09/07/17 05:11 Seg Neutrophils # Man 12.6 K/mm3 (1.8-7.7) H 09/01/17 07:02 Band Neutrophils # 0.0 K/mm3 09/01/17 07:02 Lymphocytes # (Manual) 0.4 K/mm3 (1.2-5.4) L 09/01/17 07:02 Abs React Lymphs (Man) 0.0 K/mm3 09/01/17 07:02 Monocytes # (Manual) 0.3 K/mm3 (0.0-0.8) 09/01/17 07:02 Eosinophils # (Manual) 0.3 K/mm3 (0.0-0.4) 09/01/17 07:02 Basophils # (Manual) 0.0 K/mm3 (0.0-0.1) 09/01/17 07:02 Metamyelocytes # 0.0 K/mm3 09/01/17 07:02 Myelocytes # 0.0 K/mm3 09/01/17 07:02 Promyelocytes # 0.0 K/mm3 09/01/17 07:02 Blast Cells # 0.0 K/mm3 09/01/17 07:02 WBC Morphology Not Reportable 09/01/17 07:02 Hypersegmented Neuts Not Reportable 09/01/17 07:02 Hyposegmented Neuts Not Reportable 09/01/17 07:02 Hypogranular Neuts Not Reportable 09/01/17 07:02 Smudge Cells Not Reportable 09/01/17 07:02 Toxic Granulation Not Reportable 09/01/17 07:02 Toxic Vacuolation Not Reportable 09/01/17 07:02 Dohle Bodies Not Reportable 09/01/17 07:02 Pelger-Huet Anomaly Not Reportable 09/01/17 07:02 Cande Rods Not Reportable 09/01/17 07:02 Platelet Estimate Cons 09/01/17 07:02 Clumped Platelets Not Reportable 09/01/17 07:02 Plt Clumps, EDTA Not Reportable 09/01/17 07:02 Large Platelets Not Reportable 09/01/17 07:02 Giant Platelets Not Reportable 09/01/17 07:02 Platelet Satelliting Not Reportable 09/01/17 07:02 Plt Morphology Comment Not Reportable 09/01/17 07:02 RBC Morphology Not Reportable 09/01/17 07:02 Dimorphic RBCs Not Reportable 09/01/17 07:02 Polychromasia Not Reportable 09/01/17 07:02 Hypochromasia 2+ 09/01/17 07:02 Poikilocytosis 2+ 09/01/17 07:02 Anisocytosis 2+ 09/01/17 07:02 Microcytosis Not Reportable 09/01/17 07:02 Macrocytosis Not Reportable 09/01/17 07:02 Spherocytes Not Reportable 09/01/17 07:02 Pappenheimer Bodies Not Reportable 09/01/17 07:02 Sickle Cells Not Reportable 09/01/17 07:02 Target Cells Few 09/01/17 07:02 Tear Drop Cells Not Reportable 09/01/17 07:02 Ovalocytes Not Reportable 09/01/17 07:02 Helmet Cells Not Reportable 09/01/17 07:02 [place] Bodies Not Reportable 09/01/17 07:02 [place] Rings Not Reportable 09/01/17 07:02 [place] Cells 1+ 09/01/17 07:02 Bite Cells Not Reportable 09/01/17 07:02 Crenated Cell Not Reportable 09/01/17 07:02 Elliptocytes Not Reportable 09/01/17 07:02 Acanthocytes (Spur) 1+ 09/01/17 07:02 Rouleaux Not Reportable 09/01/17 07:02 Hemoglobin C Crystals Not Reportable 09/01/17 07:02 Schistocytes Few 09/01/17 07:02 Malaria parasites Not Reportable 09/01/17 07:02 Jonny Bodies Not Reportable 09/01/17 07:02 Hem Pathologist Commnt No 09/01/17 07:02 PT 22.7 Sec. (12.2-14.9) H 09/02/17 17:00 INR 1.87 (0.87-1.13) H 09/02/17 17:00 APTT 37.7 Sec. (24.2-36.6) H 09/02/17 17:00 POC ABG pH 7.435 (7.35-7.45) 08/29/17 10:58 POC ABG pCO2 34.8 (35-45) L 08/29/17 10:58 POC ABG pO2 93 (80-105) 08/29/17 10:58 POC ABG HCO3 23.4 08/29/17 10:58 POC ABG Total CO2 24 08/29/17 10:58 POC ABG O2 Sat 98 08/29/17 10:58 POC ABG Base Excess -1 08/29/17 10:58 FiO2 28 % 08/29/17 10:58 Sodium 138 mmol/L (137-145) 09/17/17 05:43 Potassium 3.8 mmol/L (3.6-5.0) 09/17/17 05:43 Chloride 98.9 mmol/L (98-107) 09/17/17 05:43 Carbon Dioxide 27 mmol/L (22-30) 09/17/17 05:43 Anion Gap 16 mmol/L 09/17/17 05:43 BUN 12 mg/dL (9-20) 09/17/17 05:43 Creatinine 0.8 mg/dL (0.8-1.5) 09/17/17 05:43 Estimated GFR > 60 ml/min 09/17/17 05:43 BUN/Creatinine Ratio 15 % 09/17/17 05:43 Glucose 84 mg/dL (75-100) 09/17/17 05:43 POC Glucose 114 (70-105) H 09/20/17 12:21 Lactic Acid 1.80 mmol/L (0.7-2.0) 08/28/17 Unknown Calcium 8.4 mg/dL (8.4-10.2) 09/17/17 05:43 Phosphorus 3.50 mg/dL (2.5-4.5) 09/15/17 05:50 Magnesium 2.20 mg/dL (1.7-2.3) 09/15/17 05:50 Total Bilirubin 0.60 mg/dL (0.1-1.2) 09/09/17 07:17 AST 28 units/L (5-40) 09/09/17 07:17 ALT 14 units/L (7-56) 09/09/17 07:17 Alkaline Phosphatase 75 units/L (35-129) 09/09/17 07:17 Total Creatine Kinase 155 units/L (55-170) 08/23/17 10:56 CK-MB (CK-2) 4.4 ng/mL (0.0-4.0) H 08/23/17 10:56 CK-MB (CK-2) Rel Index 2.8 (0-4) 08/23/17 10:56 Troponin T 0.297 ng/mL (0.00-0.029) H* 09/02/17 17:00 C-Reactive Protein 38.40 mg/dL (0.00-1.30) H 08/29/17 20:45 NT-Pro-B Natriuret Pep 11492 pg/mL (0-900) H 08/23/17 02:54 Total Protein 5.9 g/dL (6.3-8.2) L 09/09/17 07:17 Albumin 2.2 g/dL (3.9-5) L 09/09/17 07:17 Albumin/Globulin Ratio 0.6 % 09/09/17 07:17 Triglycerides 69 mg/dL (2-149) 08/23/17 02:54 Cholesterol 125 mg/dL (50-199) 08/23/17 02:54 LDL Cholesterol Direct 77 mg/dL (50-130) 08/23/17 02:54 HDL Cholesterol 36 mg/dL (40-59) L 08/23/17 02:54 Cholesterol/HDL Ratio 3.47 % 08/23/17 02:54 Prostate Specific Ag 96.82 ng/mL (0.00-4.00) H 08/30/17 18:11 Urine Color Yellow (Yellow) 08/28/17 21:00 Urine Turbidity Clear (Clear) 08/28/17 21:00 Urine pH 5.0 (5.0-7.0) 08/28/17 21:00 Ur Specific [place] 1.005 (1.003-1.030) 08/28/17 21:00 Urine Protein <15 mg/dl mg/dL (Negative) 08/28/17 21:00 Urine Glucose (UA) Neg mg/dL (Negative) 08/28/17 21:00 Urine Ketones Neg mg/dL (Negative) 08/28/17 21:00 Urine Blood Lg (Negative) 08/28/17 21:00 Urine Nitrite Neg (Negative) 08/28/17 21:00 Urine Bilirubin Neg (Negative) 08/28/17 21:00 Urine Urobilinogen < 2.0 mg/dL (<2.0) 08/28/17 21:00 Ur Leukocyte Esterase Lg (Negative) 08/28/17 21:00 Urine WBC (Auto) 43.0 /HPF (0.0-6.0) H 08/28/17 21:00 Urine RBC (Auto) > 182.0 /HPF (0.0-6.0) 08/28/17 21:00 U Epithel Cells (Auto) < 1.0 /HPF (0-13.0) 08/28/17 21:00 Uric Acid Crystals 2+ 08/28/17 21:00 Urine Mucus Few /HPF 08/28/17 21:00 Digoxin 0.6 ng/mL (0.9-2.0) L 09/15/17 05:50 Miscellaneous Test See scanned report 09/02/17 17:05 Blood Type B POSITIVE 08/27/17 20:03 Antibody Screen Negative 08/27/17 20:03 Crossmatch See Detail 08/27/17 20:03
[2017-09-20] MEDS: LANOXIN PO SCH (17:04)
[2017-09-20 18:30] VITALS: BP 129/84
== END 2017-09-20 18:29 | DRG 853 ==
LOC: ED 02:27 → CC1 04:59 → 4A 08-25 18:06 → CC1 08-27 09:30 → 4A 08-31 17:25 → 2B-ACE 09-13 03:56
PROVIDERS: ADMIT Internal Medicine; ATTEND Internal Medicine
PROC: 4A033R1 Measurement of Arterial Saturation, Peripheral, Percutaneous Approach (ICD-10-PCS; 2017-08-23)
PROC: 5A09457 Assistance with Respiratory Ventilation, 24-96 Consecutive Hours, Continuous Positive Airway Pressure (ICD-10-PCS; 2017-08-23)
PROC: 0WCG4ZZ Extirpation of Matter from Peritoneal Cavity, Percutaneous Endoscopic Approach (ICD-10-PCS; principal; 2017-08-27)
PROC: 30233N1 Transfusion of Nonautologous Red Blood Cells into Peripheral Vein, Percutaneous Approach (ICD-10-PCS; 2017-08-27)
PROC: 02HV33Z Insertion of Infusion Device into Superior Vena Cava, Percutaneous Approach (ICD-10-PCS; 2017-08-27)
PROC: 0D9680Z Drainage of Stomach with Drainage Device, Via Natural or Artificial Opening Endoscopic (ICD-10-PCS; 2017-08-27)
PROC: 0T9B30Z Drainage of Bladder with Drainage Device, Percutaneous Approach (ICD-10-PCS; 2017-08-27)
PROC: 5A1945Z Respiratory Ventilation, 24-96 Consecutive Hours (ICD-10-PCS; 2017-08-28)
PROC: 0BH17EZ Insertion of Endotracheal Airway into Trachea, Via Natural or Artificial Opening (ICD-10-PCS; 2017-08-28)
PROC: 5A09457 Assistance with Respiratory Ventilation, 24-96 Consecutive Hours, Continuous Positive Airway Pressure (ICD-10-PCS; 2017-08-29)
DX: A41.9 Sepsis, unspecified organism (principal); I50.33 Acute on chronic diastolic (congestive) heart failure; N17.0 Acute kidney failure with tubular necrosis; J96.01 Acute respiratory failure with hypoxia; G92 Toxic encephalopathy; R65.21 Severe sepsis with septic shock; K56.7 Ileus, unspecified; N39.0 Urinary tract infection, site not specified; I13.0 Hypertensive heart and chronic kidney disease with heart failure and stage 1 through stage 4 chronic kidney disease, or unspecified chronic kidney disease; K56.609 Unspecified intestinal obstruction, unspecified as to partial versus complete obstruction; I82.509 Chronic embolism and thrombosis of unspecified deep veins of unspecified lower extremity; F31.9 Bipolar disorder, unspecified; I25.10 Atherosclerotic heart disease of native coronary artery without angina pectoris; R33.9 Retention of urine, unspecified; I48.2 Chronic atrial fibrillation; N40.1 Benign prostatic hyperplasia with lower urinary tract symptoms; E66.9 Obesity, unspecified; T83.091A Other mechanical complication of indwelling urethral catheter, initial encounter; I73.9 Peripheral vascular disease, unspecified; I71.4 Abdominal aortic aneurysm, without rupture; G47.33 Obstructive sleep apnea (adult) (pediatric); N18.3 Chronic kidney disease, stage 3 (moderate); I71.2 Thoracic aortic aneurysm, without rupture; Z95.5 Presence of coronary angioplasty implant and graft; I25.2 Old myocardial infarction; Z86.73 Personal history of transient ischemic attack (TIA), and cerebral infarction without residual deficits; Z68.29 Body mass index [BMI] 29.0-29.9, adult; Z91.14 Patient's other noncompliance with medication regimen; Z79.01 Long term (current) use of anticoagulants; Z91.013 Allergy to seafood; Z79.82 Long term (current) use of aspirin; Z79.899 Other long term (current) drug therapy; Z82.49 Family history of ischemic heart disease and other diseases of the circulatory system; Z83.3 Family history of diabetes mellitus
CPT/HCPCS: 36415; 36600; 71045; 74018; 74019; 74022; 74176; 74250; 76857; 80048; 80053; 80061; 80162; 81001; 82140; 82550; 82553; 82565; 82803; 82962; 83735; 83880; 84100; 84153; 84484; 85007; 85025; 85027; 85610; 85730; 86140; 86403; 86850; 86900; 86901; 86920; 87040; 87070; 87076; 87086; 87186; 87205; 93005; 93010; 94002; 94003; 94640; 94644; 94660; 94760; 99291; A4217; A9270-GY; C1726; C1769; G8978-GP; G8979-GP; G8996-GN; G8997-GN; G8998-GN; J0282; J0330; J0690; J0692; J1160; J1170; J1450; J1630; J1940; J2060; J2250; J2370; J3010; J3370; J3430; J3486; J7030; J7040; J7060; P9016; Q9963; Q9968

== ENCOUNTER 2018-05-06 01:41 | Emergency (ER) | payer OTHER, MEDICARE ==
[2018-05-06 02:48] VITALS: BP 160/85
--- NOTE | 2018-05-06 03:24 | Emergency Department Report ---
ED ENT HPI - General Chief complaint: Nosebleed Stated complaint: NOSE BLEED Time Seen by Provider: 05/06/18 02:30 Source: patient, EMS Mode of arrival: Ambulatory Limitations: No Limitations - History of Present Illness Initial comments: Mr. Hadley is a very pleasant 72-year-old male with hx of Bipolar disorder, depression with psychosis. History of hypertension, atrial fibrillation, BPH, CHF, hyperlipidemia, DVT bilateral Mr. Hadley takes Xarelta and aspirin. He is currently a resident of [facility] on . Presents to ED for epistaxis. Bleeding now resolved. No cough. No fever. Mr. Hadley is concerned about persistent leg swelling. However he walks without difficulty. MD complaint: epistaxis -: Gradual, This evening Location: nose Severity: mild Improves with: none Worsens with: none Context-Epistaxis: aspirin use, other (Xarelto) - Related Data Previous Rx's Medication Instructions Recorded Last Taken Type Nitrofurantoin [place]/M-Cryst 100 mg PO Q12HR #14 capsule 11/04/16 Unknown Rx [Macrobid CAP] AtorvaSTATin [Lipitor] 20 mg PO QHS #30 tablet 09/18/17 Unknown Rx Bisacodyl [Dulcolax suppos] 10 mg [place] QDAY PRN #30 supp.rect 09/18/17 Unknown Rx Digoxin [Lanoxin] 0.25 mg PO DAILY@1700 #30 tablet 09/18/17 Unknown Rx Divalproex ER [Depakote ER] 300 mg PO TID #90 tablet 09/18/17 Unknown Rx Losartan [Cozaar] 25 mg PO QDAY #30 tablet 09/18/17 Unknown Rx Metoprolol [Lopressor TAB] 50 mg PO TID #180 tablet 09/18/17 Unknown Rx Rivaroxaban [Xarelto] 20 mg PO QDAY #30 tablet 09/18/17 Unknown Rx Tamsulosin [Flomax] 0.4 mg PO DAILY #30 capsule 09/18/17 Unknown Rx Allergies Allergy/AdvReac Type Severity Reaction Status Date / Time shellfish derived Allergy Itching Verified 06/26/14 13:56 ED Dental HPI - General Chief complaint: Nosebleed Stated complaint: NOSE BLEED Time Seen by Provider: 05/06/18 02:30 Source: patient, EMS Mode of arrival: Ambulatory Limitations: No Limitations - Related Data Previous Rx's Medication Instructions Recorded Last Taken Type Nitrofurantoin [place]/M-Cryst 100 mg PO Q12HR #14 capsule 11/04/16 Unknown Rx [Macrobid CAP] AtorvaSTATin [Lipitor] 20 mg PO QHS #30 tablet 09/18/17 Unknown Rx Bisacodyl [Dulcolax suppos] 10 mg [place] QDAY PRN #30 supp.rect 09/18/17 Unknown Rx Digoxin [Lanoxin] 0.25 mg PO DAILY@1700 #30 tablet 09/18/17 Unknown Rx Divalproex ER [Depakote ER] 300 mg PO TID #90 tablet 09/18/17 Unknown Rx Losartan [Cozaar] 25 mg PO QDAY #30 tablet 09/18/17 Unknown Rx Metoprolol [Lopressor TAB] 50 mg PO TID #180 tablet 09/18/17 Unknown Rx Rivaroxaban [Xarelto] 20 mg PO QDAY #30 tablet 09/18/17 Unknown Rx Tamsulosin [Flomax] 0.4 mg PO DAILY #30 capsule 09/18/17 Unknown Rx Allergies Allergy/AdvReac Type Severity Reaction Status Date / Time shellfish derived Allergy Itching Verified 06/26/14 13:56 ED Review of Systems ROS: Stated complaint: NOSE BLEED Other details as noted in HPI Constitutional: denies: fever, malaise Respiratory: denies: cough, shortness of breath ED Past Medical Hx - Past Medical History Previous Medical History?: Yes Hx Hypertension: Yes Hx CVA: Yes (2011) Hx Heart Attack/AMI: Yes Hx Congestive Heart Failure: Yes Hx Deep Vein Thrombosis: No Hx Arthritis: Yes Hx Psychiatric Treatment: Yes (Bipolar,) Hx Asthma: No Hx Tuberculosis: No Hx HIV: No Additional medical history: Afib, - Surgical History Past Surgical History?: Yes Hx Coronary Stent: Yes (x2) Hx Open Heart Surgery: No Hx Pacemaker: No Hx Internal Defibrillator: No Additional Surgical History: Cardiac stents, - Social History Smoking Status: Never Smoker Substance Use Type: Prescribed - Medications Home Medications: Home Medications Medication Instructions Recorded Confirmed Last Taken Type Nitrofurantoin [place]/M-Cryst 100 mg PO Q12HR #14 capsule 11/04/17 09/04/17 Unknown Rx [Macrobid CAP] AtorvaSTATin [Lipitor] 20 mg PO QHS #30 tablet 07/30/18 Unknown Rx Bisacodyl [Dulcolax suppos] 10 mg [place] QDAY PRN #30 supp.rect 09/18/17 Unknown Rx Digoxin [Lanoxin] 0.25 mg PO DAILY@1700 #30 tablet 09/18/17 Unknown Rx Divalproex ER [Depakote ER] 300 mg PO TID #90 tablet 09/18/17 Unknown Rx Losartan [Cozaar] 25 mg PO QDAY #30 tablet 09/18/17 Unknown Rx Metoprolol [Lopressor TAB] 50 mg PO TID #180 tablet 09/18/17 Unknown Rx Rivaroxaban [Xarelto] 20 mg PO QDAY #30 tablet 09/18/17 Unknown Rx Tamsulosin [Flomax] 0.4 mg PO DAILY #30 capsule 09/18/17 Unknown Rx ED Physical Exam - General Limitations: No Limitations General appearance: alert, in no apparent distress - Head Head exam: Present: atraumatic - Eye Eye exam: Present: normal appearance - ENT ENT exam: Present: mucous membranes moist, other (bleeding from the mouth or nose) - Neck Neck exam: Present: full ROM - Respiratory Respiratory exam: Present: normal lung sounds bilaterally. Absent: respiratory distress, wheezes, rales, rhonchi - Cardiovascular Cardiovascular Exam: Present: regular rate, normal rhythm, normal heart sounds - GI/Abdominal GI/Abdominal exam: Present: soft. Absent: distended, tenderness, guarding, rebound - Extremities Exam Extremities exam: Present: other (nonpitting edema bilateral leg) - Neurological Exam Neurological exam: Present: alert - Psychiatric Psychiatric exam: Present: normal affect, normal mood - Skin Skin exam: Present: warm, dry, intact, normal color ED Course Vital Signs 05/06/18 02:39 Temperature 98.2 F Pulse Rate 89 Respiratory 20 Rate Blood Pressure 160/85 O2 Sat by Pulse 98 Oximetry ED Medical Decision Making - Medical Decision Making mild epistaxis resolved. Will recommend holding xarelto and aspirin for 2 days. Critical care attestation.: If time is entered above; I have spent that time in minutes in the direct care of this critically ill patient, excluding procedure time. ED Disposition Clinical Impression: Epistaxis Disposition: DC/TX-65 PSY HOSP/PSY UNIT Is pt being admited?: No Does the pt Need Aspirin: No Condition: Stable Additional Instructions: Please hold aspirin and Xarelto for 2 days.
== END 2018-05-06 05:00 ==
LOC: ED 01:41
DX: R04.0 Epistaxis (principal); I11.0 Hypertensive heart disease with heart failure; I50.9 Heart failure, unspecified; I25.2 Old myocardial infarction; M19.90 Unspecified osteoarthritis, unspecified site; I48.91 Unspecified atrial fibrillation; F31.9 Bipolar disorder, unspecified; Z95.5 Presence of coronary angioplasty implant and graft; Z95.818 Presence of other cardiac implants and grafts; Z79.899 Other long term (current) drug therapy; Z91.013 Allergy to seafood; Z86.73 Personal history of transient ischemic attack (TIA), and cerebral infarction without residual deficits

== ENCOUNTER 2018-05-06 19:39 | Emergency (ER) | payer MEDICARE, OTHER ==
--- NOTE | 2018-05-06 20:22 | Emergency Department Report ---
ED ENT HPI - General Chief complaint: Nosebleed Stated complaint: HIGH BP/NOSE BLEED Time Seen by Provider: 05/06/18 20:12 Source: patient, EMS Mode of arrival: Stretcher Limitations: No Limitations - History of Present Illness Initial comments: I had the pleasure of treating Mr. Hadley last night for minor nosebleed. Mr. Hadley presents to ER from [place] for recurrent nosebleed. The bleeding again appears to be minor. THe bleeding has resolved. No other concerns. Past medical history includes atrial fibrillation, bilateral lower extremity DVT. He is currently taking aspirin and Xarelto. MD complaint: epistaxis -: This evening Severity: mild Improves with: rest Context-Epistaxis: aspirin use, other (Xrelto) - Related Data Previous Rx's Medication Instructions Recorded Last Taken Type Nitrofurantoin [place]/M-Cryst 100 mg PO Q12HR #14 capsule 11/04/16 Unknown Rx [Macrobid CAP] AtorvaSTATin [Lipitor] 20 mg PO QHS #30 tablet 09/18/17 Unknown Rx Bisacodyl [Dulcolax suppos] 10 mg [place] QDAY PRN #30 supp.rect 09/18/17 Unknown Rx Digoxin [Lanoxin] 0.25 mg PO DAILY@1700 #30 tablet 09/18/17 Unknown Rx Divalproex ER [Depakote ER] 300 mg PO TID #90 tablet 09/18/17 Unknown Rx Losartan [Cozaar] 25 mg PO QDAY #30 tablet 09/18/17 Unknown Rx Metoprolol [Lopressor TAB] 50 mg PO TID #180 tablet 09/18/17 Unknown Rx Rivaroxaban [Xarelto] 20 mg PO QDAY #30 tablet 09/18/17 Unknown Rx Tamsulosin [Flomax] 0.4 mg PO DAILY #30 capsule 09/18/17 Unknown Rx Allergies Allergy/AdvReac Type Severity Reaction Status Date / Time shellfish derived Allergy Itching Verified 06/26/14 13:56 ED Dental HPI - General Chief complaint: Nosebleed Stated complaint: HIGH BP/NOSE BLEED Time Seen by Provider: 05/06/18 20:12 Source: patient, EMS Mode of arrival: Stretcher Limitations: No Limitations - Related Data Previous Rx's Medication Instructions Recorded Last Taken Type Nitrofurantoin [place]/M-Cryst 100 mg PO Q12HR #14 capsule 11/04/16 Unknown Rx [Macrobid CAP] AtorvaSTATin [Lipitor] 20 mg PO QHS #30 tablet 09/18/17 Unknown Rx Bisacodyl [Dulcolax suppos] 10 mg [place] QDAY PRN #30 supp.rect 09/18/17 Unknown Rx Digoxin [Lanoxin] 0.25 mg PO DAILY@1700 #30 tablet 09/18/17 Unknown Rx Divalproex ER [Depakote ER] 300 mg PO TID #90 tablet 09/18/17 Unknown Rx Losartan [Cozaar] 25 mg PO QDAY #30 tablet 09/18/17 Unknown Rx Metoprolol [Lopressor TAB] 50 mg PO TID #180 tablet 09/18/17 Unknown Rx Rivaroxaban [Xarelto] 20 mg PO QDAY #30 tablet 09/18/17 Unknown Rx Tamsulosin [Flomax] 0.4 mg PO DAILY #30 capsule 09/18/17 Unknown Rx Allergies Allergy/AdvReac Type Severity Reaction Status Date / Time shellfish derived Allergy Itching Verified 06/26/14 13:56 ED Review of Systems ROS: Stated complaint: HIGH BP/NOSE BLEED Other details as noted in HPI Comment: All other systems reviewed and negative Constitutional: denies: fever, malaise Respiratory: denies: cough Cardiovascular: denies: chest pain ED Past Medical Hx - Past Medical History Previous Medical History?: Yes Hx Hypertension: Yes Hx CVA: Yes (2011) Hx Heart Attack/AMI: Yes Hx Congestive Heart Failure: Yes Hx Deep Vein Thrombosis: No Hx Arthritis: Yes Hx Psychiatric Treatment: Yes (Bipolar,) Hx Asthma: No Hx Tuberculosis: No Hx HIV: No Additional medical history: Afib, - Surgical History Past Surgical History?: Yes Hx Coronary Stent: Yes (x2) Hx Open Heart Surgery: No Hx Pacemaker: No Hx Internal Defibrillator: No Additional Surgical History: Cardiac stents, - Social History Smoking Status: Never Smoker Substance Use Type: None - Medications Home Medications: Home Medications Medication Instructions Recorded Confirmed Last Taken Type Nitrofurantoin [place]/M-Cryst 100 mg PO Q12HR #14 capsule 11/04/16 09/04/17 Unknown Rx [Macrobid CAP] AtorvaSTATin [Lipitor] 20 mg PO QHS #30 tablet 09/18/17 Unknown Rx Bisacodyl [Dulcolax suppos] 10 mg IN QDAY PRN #30 supp.rect 09/18/17 Unknown Rx Digoxin [Lanoxin] 0.25 mg PO DAILY@1700 #30 tablet 09/18/17 Unknown Rx Divalproex ER [Depakote ER] 300 mg PO TID #90 tablet 09/18/17 Unknown Rx Losartan [Cozaar] 25 mg PO QDAY #30 tablet 09/18/17 Unknown Rx Metoprolol [Lopressor TAB] 50 mg PO TID #180 tablet 09/18/17 Unknown Rx Rivaroxaban [Xarelto] 20 mg PO QDAY #30 tablet 09/18/17 Unknown Rx Tamsulosin [Flomax] 0.4 mg PO DAILY #30 capsule 09/18/17 Unknown Rx ED Physical Exam - General Limitations: No Limitations General appearance: alert, in no apparent distress - Head Head exam: Present: atraumatic, normocephalic - Eye Eye exam: Present: normal appearance - ENT ENT exam: Present: mucous membranes moist, other (no bleeding for nares or mouth) - Neck Neck exam: Present: normal inspection - Respiratory Respiratory exam: Present: normal lung sounds bilaterally. Absent: respiratory distress, wheezes, rales, rhonchi - Cardiovascular Cardiovascular Exam: Present: regular rate, normal rhythm, normal heart sounds. Absent: systolic murmur, diastolic murmur, rubs, gallop - GI/Abdominal GI/Abdominal exam: Present: soft, normal bowel sounds. Absent: distended, tenderness, guarding, rebound - Rectal Rectal exam: Present: deferred - Extremities Exam Extremities exam: Present: normal inspection - Back Exam Back exam: Present: normal inspection - Neurological Exam Neurological exam: Present: alert, oriented X3 - Psychiatric Psychiatric exam: Present: normal affect, normal mood - Skin Skin exam: Present: warm, dry, intact, normal color. Absent: rash ED Course Vital Signs 05/06/18 20:10 Temperature 98.9 F Pulse Rate 104 H Respiratory 20 Rate Blood Pressure 165/89 O2 Sat by Pulse 100 Oximetry ED Medical Decision Making - Medical Decision Making Mr. Hadley presents with recurrent nosebleed. I have checked CBC, PT, PTT where are within acceptable limits. Again, I recommend holding aspirin and Xarelto for 2 days. Dc'd back to [facility] Critical care attestation.: If time is entered above; I have spent that time in minutes in the direct care of this critically ill patient, excluding procedure time. ED Disposition Clinical Impression: Epistaxis Disposition: DC/TX-70 ANOTHER TYPE HLTHCARE Is pt being admited?: No Does the pt Need Aspirin: No Condition: Stable Additional Instructions: Your bleeding may return. However, the bleeding is minor. Please hold aspirin and Xarelto for 2 days.
[2018-05-06 21:14] LABS: Basophils % (Auto) 0.5 % (0.0-1.8); Eosinophils # (Auto) 0.2 K/mm3 (0.0-0.4); Eosinophils % (Auto) 3.5 % (0.0-4.3); Hematocrit 30.6 % (35.5-45.6); Hemoglobin 9.9 gm/dl (11.8-15.2); Lymphocytes % (Auto) 19.4 % (13.4-35.0); Mean Corpuscular HGB Conc 32 % (32-34); Mean Corpuscular Volume 72 fl (84-94); Monocytes # (Auto) 0.8 K/mm3 (0.0-0.8); Monocytes % (Auto) 14.5 % (0.0-7.3); Platelet Count 195 K/mm3 (140-440); Red Blood Count 4.27 M/mm3 (3.65-5.03); Red Cell Distribution Width 17.8 % (13.2-15.2)
[2018-05-06 21:25] LABS: INR 1.43 (0.87-1.13)
[2018-05-06 21:26] LABS: Partial Thromboplastin Time 31.9 Sec. (24.2-36.6)
[2018-05-06 23:26] VITALS: BP 163/70
== END 2018-05-06 23:30 | disposition other institution (70) ==
LOC: ED 19:39
DX: R04.0 Epistaxis (principal); I48.91 Unspecified atrial fibrillation; I11.0 Hypertensive heart disease with heart failure; M19.90 Unspecified osteoarthritis, unspecified site; Z86.718 Personal history of other venous thrombosis and embolism; Z79.82 Long term (current) use of aspirin; Z91.013 Allergy to seafood; Z95.1 Presence of aortocoronary bypass graft
CPT/HCPCS: 36415; 85025; 85610; 85730; 99285

== ENCOUNTER 2018-05-08 23:13 | Emergency (ER) | payer MEDICARE ==
--- NOTE | 2018-05-09 01:01 | Emergency Department Report ---
ED General Adult HPI - General Chief complaint: Extremity Injury, Lower Stated complaint: LEG SWELLING/BLOOD CLOT Time Seen by Provider: 05/09/18 00:53 Source: patient Mode of arrival: Ambulatory Limitations: No Limitations - History of Present Illness Initial comments: 72-year-old male with a history of chronic atrial fibrillation, hypertension, prior DVT, chronic kidney disease presents with complaint of lower extremity swelling. Patient said that he has had lower extremity swelling for the past week. Denies any chest pain shortness of breath the current time. Patient states he was discharged from [place] earlier today. Patient states that he is compliant with his Xarelto therapy as well as his digoxin. Severity scale (0 -10): 8 - Related Data Previous Rx's Medication Instructions Recorded Last Taken Type Nitrofurantoin [place]/M-Cryst 100 mg PO Q12HR #14 capsule 11/04/16 Unknown Rx [Macrobid CAP] AtorvaSTATin [Lipitor] 20 mg PO QHS #30 tablet 09/18/17 Unknown Rx Bisacodyl [Dulcolax suppos] 10 mg [place] QDAY PRN #30 supp.rect 09/18/17 Unknown Rx Digoxin [Lanoxin] 0.25 mg PO DAILY@1700 #30 tablet 09/18/17 Unknown Rx Divalproex ER [Depakote ER] 300 mg PO TID #90 tablet 09/18/17 Unknown Rx Losartan [Cozaar] 25 mg PO QDAY #30 tablet 09/18/17 Unknown Rx Metoprolol [Lopressor TAB] 50 mg PO TID #180 tablet 09/18/17 Unknown Rx Rivaroxaban [Xarelto] 20 mg PO QDAY #30 tablet 09/18/17 Unknown Rx Tamsulosin [Flomax] 0.4 mg PO DAILY #30 capsule 09/18/17 Unknown Rx Allergies Allergy/AdvReac Type Severity Reaction Status Date / Time shellfish derived Allergy Itching Verified 06/26/14 13:56 ED Review of Systems ROS: Stated complaint: LEG SWELLING/BLOOD CLOT Other details as noted in HPI Constitutional: denies: chills, fever Eyes: denies: eye pain, eye discharge, vision change ENT: denies: ear pain, throat pain Respiratory: denies: cough, shortness of breath, wheezing Cardiovascular: denies: chest pain, palpitations Endocrine: no symptoms reported Gastrointestinal: denies: abdominal pain, nausea, diarrhea Genitourinary: denies: urgency, dysuria Musculoskeletal: other (swelling; pain) Skin: denies: rash, lesions Neurological: denies: headache, weakness, paresthesias Psychiatric: denies: anxiety, depression Hematological/Lymphatic: denies: easy bleeding, easy bruising ED Past Medical Hx - Past Medical History Previous Medical History?: Yes Hx Hypertension: Yes Hx CVA: Yes (2011) Hx Heart Attack/AMI: Yes Hx Congestive Heart Failure: Yes Hx Deep Vein Thrombosis: No Hx Arthritis: Yes Hx Psychiatric Treatment: Yes (Bipolar,) Hx Asthma: No Hx Tuberculosis: No Hx HIV: No Additional medical history: Afib, - Surgical History Past Surgical History?: Yes Hx Coronary Stent: Yes (x2) Hx Open Heart Surgery: No Hx Pacemaker: No Hx Internal Defibrillator: No Additional Surgical History: Cardiac stents, - Social History Smoking Status: Never Smoker Substance Use Type: None - Medications Home Medications: Home Medications Medication Instructions Recorded Confirmed Last Taken Type Nitrofurantoin [place]/M-Cryst 100 mg PO Q12HR #14 capsule 11/04/16 09/04/17 Unknown Rx [Macrobid CAP] AtorvaSTATin [Lipitor] 20 mg PO QHS #30 tablet 09/18/17 Unknown Rx Bisacodyl [Dulcolax suppos] 10 mg [place] QDAY PRN #30 supp.rect 09/18/17 Unknown Rx Digoxin [Lanoxin] 0.25 mg PO DAILY@1700 #30 tablet 09/18/17 Unknown Rx Divalproex ER [Depakote ER] 300 mg PO TID #90 tablet 09/18/17 Unknown Rx Losartan [Cozaar] 25 mg PO QDAY #30 tablet 09/18/17 Unknown Rx Metoprolol [Lopressor TAB] 50 mg PO TID #180 tablet 09/18/17 Unknown Rx Rivaroxaban [Xarelto] 20 mg PO QDAY #30 tablet 09/18/17 Unknown Rx Tamsulosin [Flomax] 0.4 mg PO DAILY #30 capsule 09/18/17 Unknown Rx ED Physical Exam - General Limitations: No Limitations General appearance: alert, other (minimal distress; comfortable) - Head Head exam: Present: atraumatic, normocephalic - Eye Eye exam: Present: normal appearance - ENT ENT exam: Present: mucous membranes moist - Neck Neck exam: Present: normal inspection - Respiratory Respiratory exam: Present: normal lung sounds bilaterally. Absent: respiratory distress - Cardiovascular Cardiovascular Exam: Present: tachycardia, irregular rhythm. Absent: systolic murmur, diastolic murmur, rubs, gallop - GI/Abdominal GI/Abdominal exam: Present: soft, normal bowel sounds - Rectal Rectal exam: Present: deferred - Extremities Exam Extremities exam: Present: other (2+ edema bilaterally in lower extremities; ) - Back Exam Back exam: Present: normal inspection - Neurological Exam Neurological exam: Present: alert, oriented X3 - Psychiatric Psychiatric exam: Present: normal affect, normal mood - Skin Skin exam: Present: warm, dry, intact, normal color. Absent: rash ED Course Vital Signs 05/08/18 05/09/18 05/09/18 23:18 01:16 01:30 Temperature 97.9 F Pulse Rate 139 H 81 93 H Respiratory 18 19 22 Rate Blood Pressure 136/85 145/75 Blood Pressure 145/75 [Right] O2 Sat by Pulse 99 95 97 Oximetry 05/09/18 05/09/18 02:30 02:46 Temperature Pulse Rate 105 H Respiratory 16 21 Rate Blood Pressure 158/81 Blood Pressure [Right] O2 Sat by Pulse 100 Oximetry ED Medical Decision Making - Lab Data Result diagrams: 05/09/18 01:30 05/09/18 01:30 - EKG Data -: EKG Interpreted by Me - EKG Data When compared to previous EKG there are: no significant change, other Interpretation: other (atrial fibrillation rapid ventricular rate) - Medical Decision Making Patient had ultrasounds of the bilateral lower extremities ordered. Patient received 20 mg of diltiazem IV while here in the emergency department disease noted to be in atrial fibrillation with rapid ventricular rate. - Differential Diagnosis DVT; atrial fibrillation rapid ventricular rate; electrolyte abnormality; a Critical care attestation.: If time is entered above; I have spent that time in minutes in the direct care of this critically ill patient, excluding procedure time. ED Disposition Clinical Impression: Atrial fibrillation, Lower extremity pain, bilateral Disposition: - TO HOME OR SELFCARE Is pt being admited?: No Condition: Stable Instructions: Arthralgia (ED) Referrals: HAO AVELAR MD [Primary Care Provider] - 3-5 Days Time of Disposition: 02:59 Print Language: GREEK
--- NOTE | 2018-05-09 01:44 | XRay Report ---
PROCEDURE: XR CHEST 1V AP TECHNIQUE: Chest radiograph single view. HISTORY: chest pain COMPARISONS: None . FINDINGS: Heart: The heart is enlarged. Mediastinum/Vessels: Normal. Lungs/Pleural space: Normal. Bony thorax: No acute osseous abnormality. Life support devices: None. IMPRESSION: There is cardiomegaly. The lungs are clear and expanded.. This document is electronically signed by Nicolas Bell MD., May 09 2018 01:40:53 AM ET
[2018-05-09 01:52] LABS: Hematocrit 29.5 % (35.5-45.6); Hemoglobin 9.6 gm/dl (11.8-15.2); Mean Corpuscular HGB Conc 33 % (32-34); Mean Corpuscular Volume 71 fl (84-94); Platelet Count 193 K/mm3 (140-440); Red Blood Count 4.13 M/mm3 (3.65-5.03); Red Cell Distribution Width 17.4 % (13.2-15.2)
[2018-05-09 02:10] LABS: Alanine Aminotransferase 16 units/L (7-56); Albumin 3.8 g/dL (3.9-5); BUN/Creatinine Ratio 19; Blood Urea Nitrogen 21 mg/dL (9-20); Calcium 9.6 mg/dL (8.4-10.2); Hemolysis Index 3
[2018-05-09] MEDS ORDERED: PERCOCET 5/325 PO ONE (02:25)
[2018-05-09 03:15] VITALS: BP 144/84
== END 2018-05-09 03:59 | disposition home or self-care (01) ==
LOC: ED 23:13
DX: I48.91 Unspecified atrial fibrillation (principal); M79.605 Pain in left leg; M79.604 Pain in right leg; I25.2 Old myocardial infarction; I11.0 Hypertensive heart disease with heart failure; I50.9 Heart failure, unspecified; M19.90 Unspecified osteoarthritis, unspecified site; F31.9 Bipolar disorder, unspecified
CPT/HCPCS: 36415; 71045; 80053; 82550; 83880; 84436; 84443; 85027; 93005; 93010

== ENCOUNTER 2018-05-09 07:04 | Outpatient (CLI) | payer MEDICARE ==
--- NOTE | 2018-05-09 09:18 | Vascular Lab Report ---
PROCEDURE: VL VENOUS DUPLEX LE BILAT TECHNIQUE: Transverse longitudinal sonograms obtained with sheridan scale sonography. Spectral and color Doppler evaluation. Compression and augmentation. HISTORY: LOWER EXTREMITY PAIN COMPARISONS: None FINDINGS: The bilateral common femoral, superficial femoral, popliteal and visualized calf veins demonstrate no rmal flow with Doppler. No significant filling defect. Partial compressibility was noted over the enid ateral thigh vessels. Reflux is noted. No evidence of deep venous thrombus. Subcutaneous edema identi fied. Compressibility likely limited by edema. IMPRESSION: No deep venous thrombus identified.. This document is electronically signed by Shivam Whitfield MD., May 09 2018 09:16:04 AM ET
== END 2018-05-09 07:05 | disposition home or self-care (01) ==
LOC: VAS 07:04
PROVIDERS: ATTEND Emergency Medicine
DX: M79.604 Pain in right leg (principal); M79.605 Pain in left leg; I11.0 Hypertensive heart disease with heart failure; I50.9 Heart failure, unspecified; M19.90 Unspecified osteoarthritis, unspecified site; Z90.89 Acquired absence of other organs
CPT/HCPCS: 93970

== ENCOUNTER 2018-05-11 16:15 | Emergency (ER) | payer MEDICARE ==
[2018-05-11 17:24] VITALS: BP 169/74
--- NOTE | 2018-05-11 17:25 | Emergency Department Report ---
Blank Doc - Documentation Documentation: Mr baron returns to ED for bilateral swollen and pain to legs was just d/c from ER this am ACC reevaluate
== END 2018-05-11 19:25 | disposition left against medical advice (07) ==
LOC: ED 16:15
DX: R60.0 Localized edema (principal); Z53.21 Procedure and treatment not carried out due to patient leaving prior to being seen by health care provider

== ENCOUNTER 2018-05-13 00:44 | Emergency (ER) | payer MEDICARE ==
[2018-05-13 01:13] VITALS: BP 120/60
--- NOTE | 2018-05-13 07:30 | Emergency Department Report ---
ED General Adult HPI - General Chief complaint: Extremity Injury, Lower Stated complaint: LEG SWELLING Time Seen by Provider: 05/13/18 07:20 Source: patient, EMS (ems notes not available at time of chart dictation), RN notes reviewed, old records reviewed Mode of arrival: Ambulatory Limitations: No Limitations - History of Present Illness Initial comments: This is a 72-year-old gentleman. Patient follows with at length to heart cardiology; Dr. Canas He reports a past medical history of chronic lower extremity edema, congestive heart failure, high cholesterol, bipolar, atrial fibrillation, arthritis. The patient presents to the emergency room today with a recurrent complaint of nontraumatic bilateral lower extremity swelling. The patient has had multiple visits for the same complaint within the past 2 weeks. The patient has had an extensive workup by my colleagues in the past 2 weeks, including multiple laboratory studies, negative DVT study, unremarkable x-ray of the chest. He was recently seen by my colleague, Dr. Crane, who gave the patient appropriate counseling on ER utilization, and utilization of Lasix. Malleoli taking Lasix 40 mg once daily, and was instructed to take Lasix 40 mg twice daily. Denies physical pain. His lower extremity swelling is constant. It does not appear to have exacerbating or relieving factors. The patient endorses compliance with medications, with the exception of Lasix 40 mg twice daily. He makes no complaint of homicidality or suicidality. -: Gradual, days(s) Location: left, right, lower extremity Severity scale (0 -10): 3 Consistency: constant Improves with: none Worsens with: none - Related Data Previous Rx's Medication Instructions Recorded Last Taken Type AtorvaSTATin [Lipitor] 20 mg PO QHS #30 tablet 09/18/17 Unknown Rx Digoxin [Lanoxin] 0.25 mg PO DAILY@1700 #30 tablet 09/18/17 Unknown Rx Divalproex ER [Depakote ER] 300 mg PO TID #90 tablet 09/18/17 Unknown Rx Losartan [Cozaar] 25 mg PO QDAY #30 tablet 09/18/17 Unknown Rx Metoprolol [Lopressor TAB] 50 mg PO TID #180 tablet 09/18/17 Unknown Rx Rivaroxaban [Xarelto] 20 mg PO QDAY #30 tablet 09/18/17 Unknown Rx Tamsulosin [Flomax] 0.4 mg PO DAILY #30 capsule 09/18/17 Unknown Rx Acetaminophen [Tylenol 8 Hour] 650 mg PO Q8H #30 tablet.er 05/11/18 Unknown Rx Furosemide [Lasix TAB] 40 mg PO BID #30 tablet 05/13/18 Unknown Rx Allergies Allergy/AdvReac Type Severity Reaction Status Date / Time shellfish derived Allergy Itching Verified 05/12/18 14:53 ED Review of Systems ROS: Stated complaint: LEG SWELLING Other details as noted in HPI Constitutional: denies: fever Eyes: denies: vision change ENT: denies: epistaxis Respiratory: denies: orthopnea Cardiovascular: edema. denies: chest pain Gastrointestinal: denies: nausea, vomiting, constipation, hematemesis, melena, hematochezia Genitourinary: denies: dysuria Musculoskeletal: other (chronic lower extremity swelling). denies: arthralgia, myalgia Skin: denies: lesions Neurological: denies: numbness, paresthesias, confusion Psychiatric: denies: homicidal thoughts, suicidal thoughts ED Past Medical Hx - Past Medical History Previous Medical History?: Yes Hx Hypertension: Yes Hx CVA: Yes (2012) Hx Heart Attack/AMI: Yes Hx Congestive Heart Failure: Yes Hx Deep Vein Thrombosis: No Hx Liver Disease: Yes Hx Arthritis: Yes Hx Psychiatric Treatment: Yes (Bipolar,) Hx Asthma: No Hx Tuberculosis: No Hx HIV: No Additional medical history: Afib, - Surgical History Hx Coronary Stent: Yes (x2) Hx Open Heart Surgery: No Hx Pacemaker: No Hx Internal Defibrillator: No Additional Surgical History: Cardiac stents, - Social History Smoking Status: Never Smoker Substance Use Type: None - Medications Home Medications: Home Medications Medication Instructions Recorded Confirmed Last Taken Type AtorvaSTATin [Lipitor] 20 mg PO QHS #30 tablet 09/18/17 Unknown Rx Digoxin [Lanoxin] 0.25 mg PO DAILY@1700 #30 tablet 09/18/17 Unknown Rx Divalproex ER [Depakote ER] 300 mg PO TID #90 tablet 09/18/17 Unknown Rx Losartan [Cozaar] 25 mg PO QDAY #30 tablet 09/18/17 Unknown Rx Metoprolol [Lopressor TAB] 50 mg PO TID #180 tablet 09/18/17 Unknown Rx Rivaroxaban [Xarelto] 20 mg PO QDAY #30 tablet 09/18/17 Unknown Rx Tamsulosin [Flomax] 0.4 mg PO DAILY #30 capsule 09/18/17 Unknown Rx Acetaminophen [Tylenol 8 Hour] 650 mg PO Q8H #30 tablet.er 05/11/18 Unknown Rx Furosemide [Lasix TAB] 40 mg PO BID #30 tablet 05/13/18 Unknown Rx ED Physical Exam - General Limitations: No Limitations General appearance: alert, anxious - Head Head exam: Present: atraumatic, normocephalic - Eye Eye exam: Present: normal appearance, EOMI. Absent: nystagmus - ENT ENT exam: Present: normal exam, normal orophraynx, mucous membranes moist, normal external ear exam - Neck Neck exam: Present: normal inspection, full ROM. Absent: tenderness, meningismus - Respiratory Respiratory exam: Present: normal lung sounds bilaterally. Absent: respiratory distress - Cardiovascular Cardiovascular Exam: Present: tachycardia, irregular rhythm, normal heart sound s. Absent: systolic murmur, diastolic murmur, rubs, gallop - GI/Abdominal GI/Abdominal exam: Present: soft. Absent: distended, tenderness, guarding, rebound, rigid, pulsatile mass - Rectal Rectal exam: Present: deferred - Extremities Exam Extremities exam: Present: normal inspection, pedal edema, other ( 2 to 3+ pitting edema bilateral lower extremities.). Absent: calf tenderness - Back Exam Back exam: Present: normal inspection, full ROM. Absent: tenderness, CVA tenderness (R), paraspinal tenderness, vertebral tenderness - Neurological Exam Neurological exam: Present: alert, oriented X3, CN II-XII intact, normal gait, other (Extraocular movements intact. Tongue midline. No facial droop. Facial sensation intact to light touch in the V1, V2, V3 distribution bilaterally. 5 and 5 strength in 4 extremities.. Sensation is intact to light touch in 4 extremities.). Absent: motor sensory deficit - Psychiatric Psychiatric exam: Present: agitated, anxious - Skin Skin exam: Present: warm, dry, intact, normal color. Absent: rash ED Course Vital Signs 05/13/18 00:58 Temperature 97.1 F L Pulse Rate 64 Respiratory 18 Rate Blood Pressure 120/60 O2 Sat by Pulse 99 Oximetry ED Medical Decision Making - Lab Data Vital Signs 05/13/18 00:58 Temperature 97.1 F L Pulse Rate 64 Respiratory 18 Rate Blood Pressure 120/60 O2 Sat by Pulse 99 Oximetry Current vital signs, blood pressure 152/88 Temperature 90.8 degrees. Heart rate 84 bpm. 18 breaths per minute. Saturating 97% on no oxygen. - EKG Data -: EKG Interpreted by Me - EKG Data 05/13/18 08:21 Atrial fibrillation, left axis deviation, poor R wave progression, QTC prolonged, abnormal EKG, not consistent with ST elevation myocardial infarction, not having chest pain - Medical Decision Making Differential diagnosis, including but not limited to: Resolved A. fib with RVR, anxiety, agitation, chronic lower extremity edema Assessment and plan: 72-year-old gentleman with complaint of chronic lower extremity edema. During my history and physical, he is found to be tachycardic, but he was also noted to be walking around the ER without difficulty, and speaking to multiple staff members. His tachycardia has resolved, and he is saturating well on room air. He declined laboratory studies which I believe is reasonable, given his extensive workup within the past few days. He is speaking in full sentences with no crackles or rales, and saturating appropriately. He does not appear to have an emergently decompensated medical condition at this time. The patient is somewhat disorganized, but not homicidal and not suicidal, he does not meet 1013 criteria or involuntary hold criteria at this time. He is again counseled to increase Lasix to 40 mg twice daily, and he is medically suitable to follow up with his outpatient primary care doctor or manager labor delivery. Critical care attestation.: If time is entered above; I have spent that time in minutes in the direct care of this critically ill patient, excluding procedure time. ED Disposition Clinical Impression: Localized swelling of both lower legs Disposition: DC-01 TO HOME OR SELFCARE Is pt being admited?: No Does the pt Need Aspirin: No Condition: Stable Instructions: Leg Edema (ED) Additional Instructions: Continue outpatient medications. Increase Lasix consumption to 40 mg twice daily. Continue current outpatient medications otherwise. Follow up with your primary care doctor within the next 2-4 weeks. Follow up with her manager labor delivery within the next 7-10 days. Return to the emergency room right away with new, worsening or different symptoms. Referrals: ADAM CANAS MD [Staff Physician] - 7-10 days
== END 2018-05-13 10:17 | disposition home or self-care (01) ==
LOC: ED 00:44
DX: R22.43 Localized swelling, mass and lump, lower limb, bilateral (principal); I11.0 Hypertensive heart disease with heart failure; I50.9 Heart failure, unspecified; I25.2 Old myocardial infarction; M19.90 Unspecified osteoarthritis, unspecified site; F31.9 Bipolar disorder, unspecified; I48.91 Unspecified atrial fibrillation; Z95.5 Presence of coronary angioplasty implant and graft; Z79.899 Other long term (current) drug therapy; Z91.013 Allergy to seafood
CPT/HCPCS: 93005; 93010

== ENCOUNTER 2018-05-14 17:10 | Emergency (ER) | payer MEDICARE ==
--- NOTE | 2018-05-14 17:27 | Emergency Department Report ---
Chief Complaint: Extremity Problem,Nontraumatic Stated Complaint: LEGS SWOLLEN/ANKLE PAIN Time Seen by Provider: 05/14/18 17:26 - HPI History of Present Illness: I SAW MR [facility] IN H[place]WAY HE WAS GOING TO [place]. SO FAR HE HAS NOT RETURNED HERE SEVERAL TIMES THIS LAST WEEK HE IS IN NAD MSE screening note: Focused history and physical exam performed. Due to findings the following was ordered: ED Disposition for MSE Condition: Stable
[2018-05-14 18:21] VITALS: BP 169/88
--- NOTE | 2018-05-14 20:10 | Emergency Department Report ---
Chief Complaint: Extremity Problem,Nontraumatic Stated Complaint: LEGS SWOLLEN/ANKLE PAIN Time Seen by Provider: 05/14/18 17:26 - HPI History of Present Illness: 72-year-old -[place] male with chronic lower leg edema has been coming in every day for the last 2 weeks for the same complaint patient reports nothing has changed. Patient does admit that he walks a lot and has not followed up with any the providers that we have referred him to. Patient denies any shortness of breathing no chest pain complains of leg swelling and leg pain. Patient was given a prescription yesterday for Lasix 40 mg to take. - ROS Review of Systems: Bilateral leg swelling and pain with walking - Exam Vital Signs: Vital Signs 05/14/18 18:20 Temperature 98.1 F Pulse Rate 111 H Respiratory 20 Rate Blood Pressure 169/88 O2 Sat by Pulse 99 Oximetry Physical Exam: Patient's alert and oriented 3 in no acute distress and pleasant. Cardiovascular S1 and S2 tachycardic which is patient's baseline. Respiratory clear to auscultation Bilateral lower leg edema pulses are intact not diminished. Patient mood is stable non-anxious non-flat MSE screening note: Focused history and physical exam performed. Due to findings the following was ordered: Discussed the patient that we have given him 2 referrals and a prescription in the last 2 days I reprinted patient's discharge summary and cervical the referrals and explained to patient with a relocated. Patient was very thankful. Also discussed the patient that if he stays home and elevates his feet the swelling shall improve. Patient verbalized understanding. ED Disposition for MSE Condition: Stable Referrals: RORY WYOMING SAAD VILLANUEVA MD [Primary Care Provider] - 3-5 Days
== END 2018-05-14 20:10 | disposition left against medical advice (07) ==
LOC: ED 17:10
DX: M79.604 Pain in right leg (principal); M79.605 Pain in left leg; R22.43 Localized swelling, mass and lump, lower limb, bilateral; R60.0 Localized edema; Z91.013 Allergy to seafood
CPT/HCPCS: 99281

== ENCOUNTER 2018-05-15 23:20 | Inpatient (IN) | payer MEDICARE ==
[2018-05-15] MEDS ORDERED: ASPIRIN PO ONE (23:53)
[2018-05-16 00:20] LABS: Hemoglobin 11.1 gm/dl (11.8-15.2); Mean Corpuscular Volume 72 fl (84-94)
[2018-05-16 00:21] LABS: Basophils % (Auto) 0.7 % (0.0-1.8); Eosinophils # (Auto) 0.2 K/mm3 (0.0-0.4); Eosinophils % (Auto) 2.4 % (0.0-4.3); Lymphocytes # (Auto) 1.1 K/mm3 (1.2-5.4); Lymphocytes % (Auto) 15.5 % (13.4-35.0); Mean Corpuscular HGB Conc 33 % (32-34); Monocytes # (Auto) 0.5 K/mm3 (0.0-0.8); Monocytes % (Auto) 7.8 % (0.0-7.3); Platelet Count 214 K/mm3 (140-440); Red Cell Distribution Width 17.6 % (13.2-15.2)
[2018-05-16] MEDS ORDERED: CARDIZEM IV ONE (00:22)
--- NOTE | 2018-05-16 00:26 | XRay Report ---
PROCEDURE: XR CHEST 1V AP TECHNIQUE: Chest radiograph single view. HISTORY: Chest Pain COMPARISONS: May 09, 2018 . FINDINGS: Heart: Heart size is enlarged but stable. Mediastinum/Vessels: Normal. Lungs/Pleural space: Normal. Bony thorax: No acute osseous abnormality. Life support devices: None. IMPRESSION: There is no evidence of an acute infiltrate or effusion. Mild stable cardiomegaly.. This document is electronically signed by Aimee Crane DO., May 16 2018 12:24:12 AM ET
--- NOTE | 2018-05-16 00:27 | Emergency Department Report ---
ED Chest Pain HPI - General Chief Complaint: Chest Pain Stated Complaint: SWOLLEN LEGS CHEST PAIN Time Seen by Provider: 05/16/18 00:15 Source: patient Mode of arrival: Ambulatory Limitations: No Limitations - History of Present Illness Initial Comments: Patient is 72 years old male with history of congestive heart failure, chronic atrial fibrillation on the Xarelto, carotid artery disease. To the ER complaining of chest pain, left-sided, pressure with no radiation. Patient stated that chest pain associated with shortness of breath and palpitation. Patient denied any fever or chills. Patient found to have atrial fibrillation with RVR with a heart rate ranging between 110-145. Patient received Cardizem 10 mg IV push and started on Cardizem drip at 5 mg/h. MD Complaint: chest pain Onset: during rest Pain Location: left chest Severity scale (0 -10): 3 Quality: tightness Consistency: constant - Related Data Previous Rx's Medication Instructions Recorded Last Taken Type AtorvaSTATin [Lipitor] 20 mg PO QHS #30 tablet 09/18/17 Unknown Rx Digoxin [Lanoxin] 0.25 mg PO DAILY@1700 #30 tablet 09/18/17 Unknown Rx Divalproex ER [Depakote ER] 300 mg PO TID #90 tablet 09/18/17 Unknown Rx Losartan [Cozaar] 25 mg PO QDAY #30 tablet 09/18/17 Unknown Rx Metoprolol [Lopressor TAB] 50 mg PO TID #180 tablet 09/18/17 Unknown Rx Rivaroxaban [Xarelto] 20 mg PO QDAY #30 tablet 09/18/17 Unknown Rx Tamsulosin [Flomax] 0.4 mg PO DAILY #30 capsule 09/18/17 Unknown Rx Acetaminophen [Tylenol 8 Hour] 650 mg PO Q8H #30 tablet.er 05/11/18 Unknown Rx Furosemide [Lasix TAB] 40 mg PO BID #30 tablet 05/13/18 Unknown Rx Allergies Allergy/AdvReac Type Severity Reaction Status Date / Time shellfish derived Allergy Itching Verified 05/12/18 14:53 Heart Score - HEART Score History: Moderately suspicious EKG: Non-specific Age: > 65 Risk factors: > 3 risk factors or hx of atherosclerotic disease Troponin: < normal limit HEART Score: 6 - Critical Actions Critical Actions: 4-6 pts:12-16.6% risk of adverse cardiac event. Should be admitted ED Review of Systems ROS: Stated complaint: SWOLLEN LEGS CHEST PAIN Other details as noted in HPI Comment: All other systems reviewed and negative Constitutional: denies: chills, fever Respiratory: shortness of breath, SOB with exertion, SOB at rest. denies: cough, wheezing Cardiovascular: chest pain, palpitations Gastrointestinal: denies: abdominal pain, nausea, vomiting, diarrhea, hematemesis Musculoskeletal: denies: back pain Neurological: denies: headache, weakness, numbness, paresthesias, confusion ED Past Medical Hx - Past Medical History Previous Medical History?: Yes Hx Hypertension: Yes Hx CVA: Yes (2012) Hx Heart Attack/AMI: Yes Hx Congestive Heart Failure: Yes Hx Deep Vein Thrombosis: No Hx Liver Disease: Yes Hx Arthritis: Yes Hx Psychiatric Treatment: Yes (Bipolar,) Hx Asthma: No Hx Tuberculosis: No Hx HIV: No Additional medical history: Afib, - Surgical History Hx Coronary Stent: Yes (x2) Hx Open Heart Surgery: No Hx Pacemaker: No Hx Internal Defibrillator: No Additional Surgical History: Cardiac stents, - Social History Smoking Status: Never Smoker Substance Use Type: None - Medications Home Medications: Home Medications Medication Instructions Recorded Confirmed Last Taken Type AtorvaSTATin [Lipitor] 20 mg PO QHS #30 tablet 09/18/17 Unknown Rx Digoxin [Lanoxin] 0.25 mg PO DAILY@1700 #30 tablet 09/18/17 Unknown Rx Divalproex ER [Depakote ER] 300 mg PO TID #90 tablet 09/18/17 Unknown Rx Losartan [Cozaar] 25 mg PO QDAY #30 tablet 09/18/17 Unknown Rx Metoprolol [Lopressor TAB] 50 mg PO TID #180 tablet 09/18/17 Unknown Rx Rivaroxaban [Xarelto] 20 mg PO QDAY #30 tablet 09/18/17 Unknown Rx Tamsulosin [Flomax] 0.4 mg PO DAILY #30 capsule 09/18/17 Unknown Rx Acetaminophen [Tylenol 8 Hour] 650 mg PO Q8H #30 tablet.er 05/11/18 Unknown Rx Furosemide [Lasix TAB] 40 mg PO BID #30 tablet 05/13/18 Unknown Rx ED Physical Exam - General Limitations: No Limitations General appearance: alert, in no apparent distress - Head Head exam: Present: atraumatic, normocephalic, normal inspection - Eye Eye exam: Present: normal appearance, PERRL - ENT ENT exam: Present: normal exam, normal orophraynx, mucous membranes moist - Neck Neck exam: Present: normal inspection, full ROM. Absent: tenderness, men ingismus, lymphadenopathy, thyromegaly - Respiratory Respiratory exam: Present: normal lung sounds bilaterally. Absent: respiratory distress, wheezes, rales, rhonchi, chest wall tenderness, accessory muscle use, decreased breath sounds, prolonged expiratory - Cardiovascular Cardiovascular Exam: Present: tachycardia, irregular rhythm - GI/Abdominal GI/Abdominal exam: Present: soft, normal bowel sounds. Absent: distended, tenderness, guarding, rebound, rigid - Extremities Exam Extremities exam: Present: full ROM, normal capillary refill, pedal edema, other (chronic right leg swelling.). Absent: tenderness, calf tenderness ED Course Vital Signs 05/15/18 05/16/18 05/16/18 23:48 00:20 00:30 Temperature 97.6 F Pulse Rate 140 H 98 H 109 H Respiratory 16 15 24 Rate Blood Pressure 209/111 120/73 O2 Sat by Pulse 98 97 Oximetry 05/16/18 05/16/18 05/16/18 00:38 00:45 00:59 Temperature Pulse Rate 104 H 82 91 H Respiratory Rate Blood Pressure 120/73 135/70 135/70 O2 Sat by Pulse 96 Oximetry ED Medical Decision Making - Lab Data Result diagrams: 05/16/18 00:02 05/16/18 00:02 - EKG Data -: EKG Interpreted by Me Rate: tachycardia - EKG Data 05/16/18 00:27 Atrial fibrillation with RVR. - Medical Decision Making Patient is 72 years old male with history of congestive heart failure, chronic atrial fibrillation on the Xarelto, carotid artery disease. To the ER complaining of chest pain, left-sided, pressure with no radiation. Patient stated that chest pain associated with shortness of breath and palpitation. Patient denied any fever or chills. Patient found to have atrial fibrillation with RVR with a heart rate ranging between 110-145. Patient received Cardizem 10 mg IV push and started on Cardizem drip at 5 mg/h. I discussed the patient is Dr. Katherin Medina, she agreed to admit the patient to medical service. Critical Care Time: Yes Critical care time in (mins) excluding proc time.: 30 Critical care attestation.: If time is entered above; I have spent that time in minutes in the direct care of this critically ill patient, excluding procedure time. ED Disposition Clinical Impression: Atrial fibrillation with RVR, Chest pain, SOB (shortness of breath) Disposition: OP ADMIT IP TO THIS HOSP Is pt being admited?: Yes Condition: Stable Instructions: Chest Pain (ED)
[2018-05-16 00:31] LABS: BUN/Creatinine Ratio 18; Blood Urea Nitrogen 25 mg/dL (9-20); Calcium 10.3 mg/dL (8.4-10.2); Hemolysis Index 10
[2018-05-16] MEDS ORDERED: CARDIZEM 100 MG in D5W 80 ML IV SCH (01:00)
[2018-05-16] MEDS ORDERED: SODIUM CHLORIDE FLUSH SYRINGE 10 ML IV PRN (02:30)
[2018-05-16] MEDS ORDERED: TYLENOL PO PRN (02:30)
[2018-05-16] MEDS ORDERED: ZOFRAN IV PRN (02:30)
--- NOTE | 2018-05-16 02:34 | History and Physical Report ---
History of Present Illness Date of examination: 05/16/18 History of present illness: 70-year-old man with a history of A. fib, hypertension, DVT, coronary artery disease, previous CVA, thoracic aneurysm, and bipolar comes emergency room with complaints of chest pain. He refused to give a history, stating he is very sle epy. In the emergency room, he was found to be in A. fib with rapid ventricular rate in the 140s, started on a Cardizem drip. Her review of systems unobtainable PAST MEDICAL HISTORY:A. fib, hypertension, DVT, coronary artery disease, previous CVA, thoracic aneurysm, and bipolar PAST SURGICAL HISTORY: IVC filter, tonsillectomy SOCIAL HISTORY: Denies alcohol, tobacco, drugs FAMILY HISTORY: Hypertension, diabetes Medications and Allergies Allergies Allergy/AdvReac Type Severity Reaction Status Date / Time shellfish derived Allergy Itching Verified 05/12/18 14:53 Home Medications Medication Instructions Recorded Confirmed Last Taken Type AtorvaSTATin [Lipitor] 20 mg PO QHS #30 tablet 09/18/17 05/17/18 Unknown Rx Digoxin [Lanoxin] 0.25 mg PO DAILY@1700 #30 tablet 09/18/17 05/17/18 Unknown Rx Divalproex ER [Depakote ER] 300 mg PO TID #90 tablet 09/18/17 05/17/18 Unknown Rx Losartan [Cozaar] 25 mg PO QDAY #30 tablet 09/18/17 05/17/18 Unknown Rx Metoprolol [Lopressor TAB] 50 mg PO TID #180 tablet 09/18/17 05/17/18 Unknown Rx Rivaroxaban [Xarelto] 20 mg PO QDAY #30 tablet 09/18/17 05/17/18 Unknown Rx Tamsulosin [Flomax] 0.4 mg PO DAILY #30 capsule 09/18/17 05/17/18 Unknown Rx Acetaminophen [Tylenol 8 Hour] 650 mg PO Q8H #30 tablet.er 05/11/18 05/17/18 Unknown Rx Furosemide [Lasix TAB] 40 mg PO BID #30 tablet 05/13/18 05/17/18 Unknown Rx Active Meds: Active Medications Diltiazem HCl 100 mg/ Dextrose 100 mls @ 5 mls/hr IV DIRECT PATRICK; Protocol Last Admin: 05/16/18 00:59 Dose: 5 mg/hr, 5 mls/hr Documented by: Exam - Physical Exam Narrative exam: Gen. appearance: Patient lying in bed, no apparent distress HEENT: Normocephalic, atraumatic, pupils equally round and reactive to light, extraocular movement intact, and no sclericterus,. No JVD or thyromegaly or nodule,neck supple, no carotid bruit ,mucous membranes moist, no exudate or erythema Heart: S1, S2, irregular rate and rhythm Lungs: Crackles bilaterally, breathing comfortable Abdomen: Positive bowel sounds, nontender, nondistended, no organomegaly Extremity: 2+edema, cyanosis, clubbing Skin: No rash, nodules, warm, dry Neuro: Oriented 3, cranial nerves II-12 intact, speech is fluent, motor and sensory intact - Constitutional Vitals: Temp Pulse Resp BP Pulse Ox 97.6 F 71 24 122/62 93 05/15/18 23:48 05/16/18 01:31 05/16/18 00:30 05/16/18 02:00 05/16/18 02:00 Results - Labs CBC & Chem 7: 05/16/18 00:02 05/16/18 00:02 Labs: Abnormal lab results 05/16/18 05/16/18 Range/Units 00:02 00:02 Hgb 11.1 L (11.8-15.2) gm/dl Hct 34.0 L (35.5-45.6) % MCV 72 L (84-94) fl MCH 24 L (28-32) pg RDW 17.6 H (13.2-15.2) % [place] % (Auto) 7.8 H (0.0-7.3) % Lymph # 1.1 L (1.2-5.4) K/mm3 Seg Neutrophils % 73.6 H (40.0-70.0) % BUN 25 H (9-20) mg/dL Glucose 161 H (75-100) mg/dL Calcium 10.3 H (8.4-10.2) mg/dL - Imaging and Cardiology EKG: image reviewed Chest x-ray: report reviewed Assessment and Plan Assessment A. fib with RVR ?CHF Coronary artery disease Hypertension History of CVA, DVT Thoracic aneurysm Plan Admit to medicine Continue Cardizem drip Check cardiac enzymes, echo, consult cardiology Start IV Lasix, obatin further information DVT prophalaxis, xarelto Addendum Patient signed out AGAINST MEDICAL ADVICE, risk and benefits explained to him, verbalized understanding
[2018-05-16 04:08] LABS: Creatine Kinase MB 2.7 ng/mL (0.0-4.0)
[2018-05-16] MEDS ORDERED: LASIX ONE (05:33)
[2018-05-16] MEDS ORDERED: LASIX IV SCH (06:00)
[2018-05-16 06:15] VITALS: BP 135/80
[2018-05-16] MEDS ORDERED: FLOMAX PO SCH (10:00)
[2018-05-16] MEDS ORDERED: XARELTO PO SCH (10:00)
[2018-05-16] MEDS ORDERED: SODIUM CHLORIDE FLUSH SYRINGE 10 ML IV SCH (10:00)
== END 2018-05-16 06:05 | disposition left against medical advice (07) | DRG 310 ==
LOC: ED 23:20 → CC1 05-16 02:20 → UNDOADMIN 05-16 02:20 → CC1 05-16 02:30
PROVIDERS: ADMIT Internal Medicine; ATTEND Internal Medicine
DX: I48.91 Unspecified atrial fibrillation (principal); I25.10 Atherosclerotic heart disease of native coronary artery without angina pectoris; I71.2 Thoracic aortic aneurysm, without rupture; I11.0 Hypertensive heart disease with heart failure; M19.90 Unspecified osteoarthritis, unspecified site; I50.9 Heart failure, unspecified; F31.9 Bipolar disorder, unspecified; Z82.49 Family history of ischemic heart disease and other diseases of the circulatory system; Z86.718 Personal history of other venous thrombosis and embolism; Z86.73 Personal history of transient ischemic attack (TIA), and cerebral infarction without residual deficits; Z83.3 Family history of diabetes mellitus; Z91.013 Allergy to seafood; Z79.899 Other long term (current) drug therapy; Z79.01 Long term (current) use of anticoagulants; I25.2 Old myocardial infarction; Z95.5 Presence of coronary angioplasty implant and graft
CPT/HCPCS: 36415; 71045; 80048; 82550; 82553; 84484; 85025; 93005; 93010; 96374; G0378; J1940

== ENCOUNTER 2018-05-16 23:08 | Inpatient (IN) | payer MEDICARE ==
[2018-05-17] MEDS ORDERED: ATIVAN IM STA (00:18)
[2018-05-17] MEDS ORDERED: BENADRYL IM ONE (00:18)
[2018-05-17] MEDS ORDERED: HALDOL IM PRN (00:18)
[2018-05-17] MEDS ORDERED: ATIVAN ONE (00:21)
[2018-05-17] MEDS ORDERED: HALDOL ONE (00:21)
[2018-05-17] MEDS ORDERED: BENADRYL ONE (00:21)
--- NOTE | 2018-05-17 00:31 | Emergency Department Report ---
ED General Adult HPI - General Chief complaint: Extremity Injury, Lower Stated complaint: SWOLLEN LEGS Time Seen by Provider: 05/17/18 00:13 Source: patient, RN notes reviewed, old records reviewed Mode of arrival: Ambulatory Limitations: Other (patient is disorganized. Patient is psychotic.) - History of Present Illness Initial comments: This is a 72-year-old gentleman, with a history of atrial fibrillation, on systemic anticoagulation, high cholesterol, bipolar, hypertension Patient has had 13 visits to this emergency department since 05/06/2018. Patient has presented multiple times, with complaints of chest pain, shortness of breath, lower extremity swelling. I myself have personally evaluated this patient recently. Patient has had multiple extensive workups, and has been discharged with instructions to follow up multiple times. However, the patient continues to return to the emergency room. He presented to the emergency room last night with A. fib and RVR. He was admitted to the hospital, and then subsequently signed out AGAINST MEDICAL ADVICE. The patient is disorganized currently, and as per verbal report from er medicine staff, requested to go outside to grab his shoes. However, he was then noted to be engaging in verbally aggressive activity with other patients in the waiting room, including making threatening gestures, and raising his fists up. In addition, the patient continually changes his story about why he wants to go back into the waiting room. He initially told staff that he wants to get his shoes. He then stated that he wants to get paperwork. He was then noted to be attempting to go through another patient's belongings and then made the aforementioned threatening gestures The patient's story keeps changing, and it is nonsensical. The patient clearly lacks the ability to care for himself, as he continually comes back to this emergency Department. Even though he signed out AGAINST MEDICAL ADVICE this recently, it is my opinion that the the patient at this point time does not have decision-making capacity, and he clearly lacks the ability to care for himself independently. In addition, he is now making threatening gestures at other patients. For these reasons, the patient will be placed on a psychiatric hold, and on a 1013. He will be medicated with Haldol, Ativan and Benadryl to allow for acquisition of emergent diagnostics to exclude emergent condition, and placement of an IV for his current A. fib with RVR. The patient right now does not make any complaint of pain, and he is adamant that he is not homicidal or suicidal. However, he cannot rationally or reasonably explain his actions to this provider over the past 2 weeks. Severity scale (0 -10): 9 - Related Data Previous Rx's Medication Instructions Recorded Last Taken Type AtorvaSTATin [Lipitor] 20 mg PO QHS #30 tablet 09/18/17 Unknown Rx Digoxin [Lanoxin] 0.25 mg PO DAILY@1700 #30 tablet 09/18/17 Unknown Rx Divalproex ER [Depakote ER] 300 mg PO TID #90 tablet 09/18/17 Unknown Rx Losartan [Cozaar] 25 mg PO QDAY #30 tablet 09/18/17 Unknown Rx Metoprolol [Lopressor TAB] 50 mg PO TID #180 tablet 09/18/17 Unknown Rx Rivaroxaban [Xarelto] 20 mg PO QDAY #30 tablet 09/18/17 Unknown Rx Tamsulosin [Flomax] 0.4 mg PO DAILY #30 capsule 09/18/17 Unknown Rx Acetaminophen [Tylenol 8 Hour] 650 mg PO Q8H #30 tablet.er 05/11/18 Unknown Rx Furosemide [Lasix TAB] 40 mg PO BID #30 tablet 05/13/18 Unknown Rx Allergies Allergy/AdvReac Type Severity Reaction Status Date / Time shellfish derived Allergy Itching Verified 05/12/18 14:53 ED Review of Systems ROS: Stated complaint: SWOLLEN LEGS Other details as noted in HPI ED Past Medical Hx - Past Medical History Previous Medical History?: Yes Hx Hypertension: Yes Hx CVA: Yes (2011) Hx Heart Attack/AMI: Yes Hx Congestive Heart Failure: Yes Hx Deep Vein Thrombosis: No Hx Liver Disease: Yes Hx Arthritis: Yes Hx Psychiatric Treatment: Yes (Bipolar,) Hx Asthma: No Hx Tuberculosis: No Hx HIV: No Additional medical history: Afib, - Surgical History Past Surgical History?: Yes Hx Coronary Stent: Yes (x2) Hx Open Heart Surgery: No Hx Pacemaker: No Hx Internal Defibrillator: No Additional Surgical History: Cardiac stents, - Social History Smoking Status: Never Smoker Substance Use Type: None - Medications Home Medications: Home Medications Medication Instructions Recorded Confirmed Last Taken Type AtorvaSTATin [Lipitor] 20 mg PO QHS #30 tablet 09/18/17 Unknown Rx Digoxin [Lanoxin] 0.25 mg PO DAILY@1700 #30 tablet 09/18/17 Unknown Rx Divalproex ER [Depakote ER] 300 mg PO TID #90 tablet 09/18/17 Unknown Rx Losartan [Cozaar] 25 mg PO QDAY #30 tablet 09/18/17 Unknown Rx Metoprolol [Lopressor TAB] 50 mg PO TID #180 tablet 09/18/17 Unknown Rx Rivaroxaban [Xarelto] 20 mg PO QDAY #30 tablet 09/18/17 Unknown Rx Tamsulosin [Flomax] 0.4 mg PO DAILY #30 capsule 09/18/17 Unknown Rx Acetaminophen [Tylenol 8 Hour] 650 mg PO Q8H #30 tablet.er 05/11/18 Unknown Rx Furosemide [Lasix TAB] 40 mg PO BID #30 tablet 05/13/18 Unknown Rx ED Physical Exam - General Limitations: Other (disorganized, psychotic) General appearance: alert, anxious - Head Head exam: Present: atraumatic, normocephalic - Eye Eye exam: Present: normal appearance, EOMI. Absent: nystagmus - ENT ENT exam: Present: normal exam, normal orophraynx, mucous membranes moist, normal external ear exam - Neck Neck exam: Present: normal inspection, full ROM - Respiratory Respiratory exam: Present: normal lung sounds bilaterally. Absent: respiratory distress - Cardiovascular Cardiovascular Exam: Present: tachycardia, irregular rhythm, normal heart sounds. Absent: systolic murmur, diastolic murmur, rubs, gallop - GI/Abdominal GI/Abdominal exam: Present: soft. Absent: distended, guarding, rebound, rigid, pulsatile mass - Rectal Rectal exam: Present: deferred - Extremities Exam Extremities exam: Present: normal inspection, full ROM, pedal edema (2-3+ edema in the lower extremities), other (2+ pulses noted in the bilateral upper, lower extremities. Compartments soft. No long bony tenderness. The pelvis is stable.). Absent: calf tenderness - Back Exam Back exam: Present: normal inspection, full ROM. Absent: tenderness, CVA tenderness (R), paraspinal tenderness, vertebral tenderness - Neurological Exam Neurological exam: Present: alert, normal gait, other (Extraocular movements intact. Tongue midline. No facial droop. Facial sensation intact to light touch in the V1, V2, V3 distribution bilaterally. 5 and 5 strength in 4 extremities.. Sensation is intact to light touch in 4 extremities.). Absent: motor sensory deficit - Psychiatric Psychiatric exam: Present: agitated, anxious - Skin Skin exam: Present: warm, dry, intact, normal color. Absent: rash ED Course Vital Signs 05/16/18 05/17/18 23:29 01:40 Temperature 98.4 F 97.9 F Pulse Rate 124 H 84 Respiratory 20 22 Rate Blood Pressure 147/91 Blood Pressure 124/60 [Right] O2 Sat by Pulse 100 95 Oximetry - Reevaluation(s) Reevaluation #1: 05/17/18 00:34 Differential diagnosis, including not limited to: A. fib with RVR, psychosis Reevaluation #2: 05/17/18 02:22 Laboratory studies reviewed and appreciated. Patient sleeping comfortably, and stretcher, and is in no acute distress. X-ray of the chest is negative for acute disease. Given 20 mg of diltiazem, and tachycardia resolved, EKG shows fibrillation, rate of 85 bpm. Patient will be readmitted to the medical service, Dr. Medina has accepted the patient to the medical service. ED Medical Decision Making - Lab Data Result diagrams: 05/17/18 00:34 05/17/18 00:34 Vital Signs 05/16/18 23:29 Temperature 98.4 F Pulse Rate 124 H Respiratory 20 Rate Blood Pressure 147/91 O2 Sat by Pulse 100 Oximetry - EKG Data -: EKG Interpreted by Me - EKG Data 05/17/18 02:24 Atrial fibrillation, 85 bpm, left axis deviation, poor R-wave progression, QTC prolonged, abnormal EKG, not consistent with ST elevation myocardial infarction. - Radiology Data Radiology results: report reviewed, image reviewed Critical Care Time: Yes Critical care time in (mins) excluding proc time.: 35 Critical care attestation.: If time is entered above; I have spent that time in minutes in the direct care of this critically ill patient, excluding procedure time. ED Disposition Clinical Impression: Atrial fibrillation with RVR, Unable to function independently Disposition: OP ADMIT IP TO THIS HOSP Is pt being admited?: Yes Condition: Good
[2018-05-17] MEDS ORDERED: CARDIZEM IV ONE (00:57)
[2018-05-17] MEDS ORDERED: GEODON IM ONE (01:02)
[2018-05-17 01:11] LABS: Hematocrit 33.6 % (35.5-45.6); Hemoglobin 10.8 gm/dl (11.8-15.2); Mean Corpuscular HGB Conc 32 % (32-34); Mean Corpuscular Volume 73 fl (84-94); Platelet Count 218 K/mm3 (140-440); Red Blood Count 4.59 M/mm3 (3.65-5.03); Red Cell Distribution Width 17.6 % (13.2-15.2)
--- NOTE | 2018-05-17 01:11 | XRay Report ---
PROCEDURE: XR CHEST 1V AP TECHNIQUE: A portable view of the chest was obtained. HISTORY: afib w rvr COMPARISONS: 05/16/2018 FINDINGS: The heart is moderately enlarged. The lungs are not congested. There are no infiltrates or effusions. The skeletal structures do not show any acute changes. IMPRESSION: Cardiomegaly. No acute cardiopulmonary process.. This document is electronically signed by Romeo Michael MD., May 17 2018 01:09:32 AM ET
[2018-05-17 01:22] LABS: INR 1.1 (0.87-1.13)
[2018-05-17] MEDS ORDERED: ZOFRAN IV PRN (04:41)
[2018-05-17] MEDS ORDERED: SODIUM CHLORIDE FLUSH SYRINGE 10 ML IV PRN (04:41)
--- NOTE | 2018-05-17 04:54 | History and Physical Report ---
History of Present Illness Date of examination: 05/17/18 History of present illness: 72-year-old man with a history of A. fib, hypertension, chf, coronary artery disease, previous CVA, thoracic aneurysm, and bipolar comes emergency room he was found to be in A. fib with RVR, s/p IV Cardizem with good results. He was here last night with the same, complaining of shortness of breath and chest pain, was found to be in A. fib with RVR and started on a Cardizem drip, however he signed out AGAINST MEDICAL ADVICE. Today He was noted to have disorganized thought, going through patient's bags, rather loud and aggressive. He was 1013 in the emergency room, given Geodon and Haldol, he is now sedated. Unable to get a history, or review of systems PAST MEDICAL HISTORY:A. fib, hypertension, DVT, coronary artery disease, previous CVA, thoracic aneurysm, and bipolar PAST SURGICAL HISTORY: IVC filter, tonsillectomy SOCIAL HISTORY: Denies alcohol, tobacco, drugs FAMILY HISTORY: Hypertension, diabetes Medications and Allergies Allergies Allergy/AdvReac Type Severity Reaction Status Date / Time shellfish derived Allergy Itching Verified 05/12/18 14:53 Home Medications Medication Instructions Recorded Confirmed Last Taken Type AtorvaSTATin [Lipitor] 20 mg PO QHS #30 tablet 09/18/17 05/23/18 Unknown Rx Digoxin [Lanoxin] 0.25 mg PO DAILY@1700 #30 tablet 09/18/17 05/23/18 Unknown Rx Losartan [Cozaar] 25 mg PO QDAY #30 tablet 09/18/17 05/23/18 Unknown Rx Metoprolol [Lopressor TAB] 50 mg PO TID #180 tablet 09/18/17 05/23/18 Unknown Rx Rivaroxaban [Xarelto] 20 mg PO QDAY #30 tablet 09/18/17 05/23/18 Unknown Rx Tamsulosin [Flomax] 0.4 mg PO DAILY #30 capsule 09/18/17 05/23/18 Unknown Rx Acetaminophen [Tylenol 8 Hour] 650 mg PO Q8H #30 tablet.er 05/11/18 05/23/18 05/21/18 Rx 650mg Furosemide [Lasix TAB] 40 mg PO BID #30 tablet 05/13/18 05/23/18 Unknown Rx Depakote ER 300 mg PO TID 05/22/18 05/22/18 Unknown History Haloperidol Lactate [Haldol] 5 mg IM Q6H PRN vial 05/22/18 05/22/18 05/21/18 Rx 5mg Mirtazapine [Remeron] 7.5 mg PO QHS tablet 05/22/18 05/22/18 05/21/18 Rx 7.5mg Active Meds: Active Medications Acetaminophen (Tylenol) 650 mg PO Q4H PRN PRN Reason: Pain MILD(1-3)/Fever >100.5/IRBY Enoxaparin Sodium (Lovenox) 30 mg SUB-Q QDAY [facility] Ondansetron HCl (Zofran) 4 mg IV Q8H PRN PRN Reason: Nausea And Vomiting Rivaroxaban (Xarelto) 20 mg PO QDAY [facility]; Protocol Sodium Chloride (Sodium Chloride Flush Syringe 10 Ml) 10 ml IV BID [facility] Sodium Chloride (Sodium Chloride Flush Syringe 10 Ml) 10 ml IV PRN PRN PRN Reason: LINE FLUSH Exam - Physical Exam Narrative exam: General Apperance: The patient lying in bed, breathing comfortable, intubated HEENT: Normocephalic, atraumatic. Pupils equally round and reactive to light, unable to do EOM, no sclericterus or JVD or thyromegaly or nodule. , no carotid bruit, mucous membranes moist, unable to examine oral cavity Heart: S1-S2, regular is rhythm Lungs: Clear to auscultation bilaterally, breathing comfortable Abdomen: Positive bowel sounds, soft, nondistended, no organomegaly Extremities: +edema cyanosis clubbing Skin: no rash, nodule, warm and dry Neuro: Sedated - Constitutional Vitals: Temp Pulse Resp BP Pulse Ox 97.9 F 75 22 121/62 95 05/17/18 01:40 05/17/18 02:01 05/17/18 02:01 05/17/18 02:01 05/17/18 02:01 Results - Labs CBC & Chem 7: 05/22/18 05:04 05/22/18 05:04 Labs: Abnormal lab results 05/17/18 05/17/18 05/17/18 Range/Units 00:34 00:34 00:34 Hgb 10.8 L (11.8-15.2) gm/dl Hct 33.6 L (35.5-45.6) % MCV 73 L (84-94) fl MCH 24 L (28-32) pg RDW 17.6 H (13.2-15.2) % BUN 24 H (9-20) mg/dL Creatinine 1.7 H (0.8-1.5) mg/dL Glucose 109 H (75-100) mg/dL Total Creatine Kinase 258 H (55-170) units/L Digoxin 0.3 L (0.9-2.0) ng/mL Salicylates < 0.3 L (2.8-20.0) mg/dL Acetaminophen (10.0-30.0) ug/mL 05/17/18 Range/Units 00:34 Hgb (11.8-15.2) gm/dl Hct (35.5-45.6) % MCV (84-94) fl MCH (28-32) pg RDW (13.2-15.2) % BUN (9-20) mg/dL Creatinine (0.8-1.5) mg/dL Glucose (75-100) mg/dL Total Creatine Kinase (55-170) units/L Digoxin (0.9-2.0) ng/mL Salicylates (2.8-20.0) mg/dL Acetaminophen < 5.0 L (10.0-30.0) ug/mL Assessment and Plan Assessment A. fib with RVR CHF Coronary artery disease Hypertension History of CVA, DVT Bipolar Thoracic aneurysm Plan Admit to medicine Check cardiac enzymes, echo, consult cardiology Start IV Lasix, obatin further information when awake DVT prophalaxis, xarelto
[2018-05-17] MEDS: LASIX IV SCH ×2 (06:42→17:36)
--- NOTE | 2018-05-17 08:31 | Consultation ---
History of Present Illness Consult date: 05/17/18 Consult reason: atrial fibrillation History of present illness: Patient is a 72 year old man with multiple medical problems. He has a history of single-vessel coronary artery disease who has been lost to outpatient cardiac follow-up. A cardiac cath done 2013 reoprts a patent LAD stent. His latest cardiac workup done in 2015 with a persantine thallium stress test reports no reversible ischemia, ejection fraction 50-55% by echocardiogram. He has chronic atrial fibrillation and prior deep vein thrombosis previously treated with Xarelto for prophylaxis. He has a history of bipolar disease, chronic hypertension, obesity and chronic kidney disease. He also has a ascending aortic aneurysm, measured at 4.9 cm in 2014. It would be noted patient has had multiple ER visits in the last month. Patient is now admitted with rapid atrial fibrillation and behavioral disturbance. Patient has no chest pain, shortness of breath or palpitations. Noted with mild lower extremity edema. Chest x-ray reports no acute process. His presenting EKG shows rapid atrial fibrillation which was treated with IV Cardizem. Medications and Allergies Allergies Allergy/AdvReac Type Severity Reaction Status Date / Time shellfish derived Allergy Itching Verified 05/12/18 14:53 Home Medications Medication Instructions Recorded Confirmed Last Taken Type AtorvaSTATin [Lipitor] 20 mg PO QHS #30 tablet 09/18/17 05/17/18 Unknown Rx Digoxin [Lanoxin] 0.25 mg PO DAILY@1700 #30 tablet 09/18/17 05/17/18 Unknown Rx Divalproex ER [Depakote ER] 300 mg PO TID #90 tablet 09/18/17 05/17/18 Unknown Rx Losartan [Cozaar] 25 mg PO QDAY #30 tablet 09/18/17 05/17/18 Unknown Rx Metoprolol [Lopressor TAB] 50 mg PO TID #180 tablet 09/18/17 05/17/18 Unknown Rx Rivaroxaban [Xarelto] 20 mg PO QDAY #30 tablet 09/18/17 05/17/18 Unknown Rx Tamsulosin [Flomax] 0.4 mg PO DAILY #30 capsule 09/18/17 05/17/18 Unknown Rx Acetaminophen [Tylenol 8 Hour] 650 mg PO Q8H #30 tablet.er 05/11/18 05/17/18 Unknown Rx Furosemide [Lasix TAB] 40 mg PO BID #30 tablet 05/13/18 05/17/18 Unknown Rx Active Meds: Active Medications Acetaminophen (Tylenol) 650 mg PO Q4H PRN PRN Reason: Pain MILD(1-3)/Fever >100.5/IRBY Furosemide (Lasix) 40 mg IV 0600,1800 [facility] Last Admin: 05/17/18 06:42 Dose: 40 mg Documented by: Ondansetron HCl (Zofran) 4 mg IV Q8H PRN PRN Reason: Nausea And Vomiting Rivaroxaban (Xarelto) 20 mg PO QDAY PATRICK; Protocol Sodium Chloride (Sodium Chloride Flush Syringe 10 Ml) 10 ml IV BID [facility] Sodium Chloride (Sodium Chloride Flush Syringe 10 Ml) 10 ml IV PRN PRN PRN Reason: LINE FLUSH Physical Examination Vital Signs Temp Pulse Resp BP Pulse Ox 98.4 F 124 H 20 147/91 100 05/16/18 23:29 05/16/18 23:29 05/16/18 23:29 05/16/18 23:29 05/16/18 23:29 General appearance: no acute distress HEENT: Positive: PERRL Neck: Positive: trachea midline Cardiac: Positive: irregularly irregular Lungs: Positive: Decreased Breath Sounds Neuro: Positive: Grossly Intact, Weakness Extremities: Present: +1 Edema Results 05/17/18 00:34 05/17/18 00:34 Coagulation 05/17/18 Range/Units 00:34 PT 14.9 (12.2-14.9) Sec. INR 1.10 (0.87-1.13) CBC 05/17/18 Range/Units 00:34 WBC 8.0 (4.5-11.0) K/mm3 RBC 4.59 (3.65-5.03) M/mm3 Hgb 10.8 L (11.8-15.2) gm/dl Hct 33.6 L (35.5-45.6) % Plt Count 218 (140-440) K/mm3 Comprehensive Metabolic Panel 05/17/18 Range/Units 00:34 Sodium 137 (137-145) mmol/L Potassium 4.1 (3.6-5.0) mmol/L Chloride 100.1 (98-107) mmol/L Carbon Dioxide 22 (22-30) mmol/L BUN 24 H (9-20) mg/dL Creatinine 1.7 H (0.8-1.5) mg/dL Glucose 109 H (75-100) mg/dL Calcium 10.0 (8.4-10.2) mg/dL Assessment and Plan Behavioral disturbance Permanent atrial fibrillation on digoxin and metoprolol for rate control. on xarelto as an outpatient. Chronic diastolic heart failure Echo 04/2017 at [place] - LVEF 45-50% with moderate RV dysfunctioin History of CAD s/p PCI to LAD in 2011 History of ascending aortic aneurysm measuring 4.9cm by CT Chronic DVT Chronic renal failure Systemic Hypertension Non-compliance Continue rate controlling agents for chronic atrial fibrillation. Otherwise, conservative cardiac management.
[2018-05-17] MEDS ORDERED: LOVENOX SUB-Q SCH (10:00)
[2018-05-17] MEDS: XARELTO PO SCH (11:48)
[2018-05-17] MEDS: LOPRESSOR PO SCH ×2 (13:38→20:38)
[2018-05-17] MEDS ORDERED: HALDOL PO PRN (13:41)
[2018-05-17] MEDS: SODIUM CHLORIDE FLUSH SYRINGE 10 ML IV SCH ×2 (13:42→22:34)
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
[2018-05-17] MEDS: HALDOL IM PRN ×2 (14:09→23:55)
[2018-05-17 15:09] LABS: Bacteria,Urine 1+ /HPF (Negative); Bilirubin,Urine NEG (Negative); Blood,Urine NEG (Negative); Color,Urine Yellow (Yellow); Mucus,Urine FEW /HPF
[2018-05-17 16:44] LABS: Amphetamine Screen,Urine PRESUMPTIVE NEGATIVE; Benzodiazepines Screen,Urine PRESUMPTIVE NEGATIVE; Cannabinoid Screen,Urine PRESUMPTIVE NEGATIVE; Cocaine Screen,Urine PRESUMPTIVE NEGATIVE; Methadone Screen,Urine PRESUMPTIVE NEGATIVE; Opiate Screen,Urine PRESUMPTIVE NEGATIVE
[2018-05-17] MEDS: LANOXIN PO SCH (17:34)
[2018-05-17] MEDS: ROCEPHIN/NS 1 GM/50 ML 1 GM/50 ML BAG IV SCH (17:37)
[2018-05-17] MEDS: TYLENOL PO PRN (20:38)
[2018-05-18] MEDS ORDERED: ATIVAN IV ONE (01:19)
[2018-05-18] MEDS: LASIX IV SCH ×2 (05:49→18:20)
[2018-05-18 06:34] LABS: Basophils % (Auto) 0.6 % (0.0-1.8); Eosinophils # (Auto) 0.3 K/mm3 (0.0-0.4); Hematocrit 28.5 % (35.5-45.6); Hemoglobin 9.3 gm/dl (11.8-15.2); Lymphocytes % (Auto) 19.8 % (13.4-35.0); Mean Corpuscular HGB Conc 33 % (32-34); Mean Corpuscular Volume 72 fl (84-94); Monocytes # (Auto) 0.5 K/mm3 (0.0-0.8); Monocytes % (Auto) 9.2 % (0.0-7.3); Platelet Count 175 K/mm3 (140-440); Red Blood Count 3.96 M/mm3 (3.65-5.03); Red Cell Distribution Width 17.5 % (13.2-15.2)
[2018-05-18 07:00] LABS: BUN/Creatinine Ratio 14; Blood Urea Nitrogen 18 mg/dL (9-20); Calcium 9.1 mg/dL (8.4-10.2); Hemolysis Index 2
[2018-05-18] MEDS: LOPRESSOR PO SCH ×3 (09:07→21:02)
--- NOTE | 2018-05-18 10:01 | Progress Note ---
Assessment and Plan Behavioral disturbance Permanent atrial fibrillation on digoxin and metoprolol for rate control. on xarelto as an outpatient. Chronic diastolic heart failure Echo 04/2017 at [place] - LVEF 45-50% with moderate RV dysfunctioin History of CAD s/p PCI to LAD in 2011 History of ascending aortic aneurysm measuring 4.9cm by CT Chronic DVT Chronic renal failure Systemic Hypertension Non-compliance Recommendations: Continue rate controlling agents for chronic atrial fibrillation. Otherwise, conservative cardiac management. Subjective Date of service: 05/18/18 Principal diagnosis: Afib Interval history: Patient continues to be agitated this morning He is in 4 points restraints Objective Vital Signs Temp Pulse Resp BP BP Pulse Ox 05/18/18 09:31 98.1 F 113 H 22 134/78 97 05/18/18 09:05 95 05/18/18 06:00 97.6 F 117 H 20 139/78 99 05/17/18 22:00 18 05/17/18 20:38 91 H 134/72 05/17/18 20:37 97.5 F L 20 134/72 05/17/18 20:00 97.9 F 90 134/72 05/17/18 17:34 106 H 131/70 05/17/18 16:44 106 H 05/17/18 15:29 98.4 F 106 H 18 142/68 95 05/17/18 14:06 99 05/17/18 13:38 66 05/17/18 12:00 98.3 F 124 H 18 148/98 94 - Physical Examination HEENT: Positive: PERRL Neck: Positive: trachea midline Cardiac: Positive: irregularly irregular Lungs: Positive: Normal Exam Neuro: Positive: Grossly Intact, Weakness Extremities: Present: +1 Edema - Labs and Meds CBC 05/18/18 Range/Units 04:56 WBC 5.1 (4.5-11.0) K/mm3 RBC 3.96 (3.65-5.03) M/mm3 Hgb 9.3 L (11.8-15.2) gm/dl Hct 28.5 L (35.5-45.6) % Plt Count 175 (140-440) K/mm3 Lymph # 1.0 L (1.2-5.4) K/mm3 [place] # 0.5 (0.0-0.8) K/mm3 Eos # 0.3 (0.0-0.4) K/mm3 Baso # 0.0 (0.0-0.1) K/mm3 Comprehensive Metabolic Panel 05/18/18 Range/Units 04:56 Sodium 142 (137-145) mmol/L Potassium 3.7 (3.6-5.0) mmol/L Chloride 102.5 (98-107) mmol/L Carbon Dioxide 28 (22-30) mmol/L BUN 18 (9-20) mg/dL Creatinine 1.3 (0.8-1.5) mg/dL Glucose 87 (75-100) mg/dL Calcium 9.1 (8.4-10.2) mg/dL
[2018-05-18] MEDS: HALDOL IM PRN ×2 (10:03→15:05)
[2018-05-18] MEDS: TYLENOL PO PRN ×2 (11:07→15:05)
[2018-05-18] MEDS: FLOMAX PO SCH (11:08)
[2018-05-18] MEDS: ROCEPHIN/NS 1 GM/50 ML 1 GM/50 ML BAG IV SCH (11:08)
[2018-05-18] MEDS: XARELTO PO SCH (11:08)
[2018-05-18] MEDS: SODIUM CHLORIDE FLUSH SYRINGE 10 ML IV SCH ×2 (11:09→21:03)
--- NOTE | 2018-05-18 14:34 | Progress Note ---
Subjective - Reason for Consult Consult date: 05/18/18 Reason for consult: Psychiatry Follow-up - Chief Complaint Chief complaint: "I need to go" 72 y.o. AA male who presented to the ER for bizarre behavior. The patient has several ER visit this month. Today the patient is still somewhat disorganized during the assessment. Currently, the patient is in restraints. He is fixated on withdrawing money from his bank "[employer]." His reason for wanting to withdraw money wasn't logical. He was asked about past psy medications, he stated, "I took Geodon for a while." He was able to ID the current/past [place] President and state his . He denies SI/HI's and AVH's. Mental Status Exam - Vital signs Last Vital Signs Temp 98.1 F 05/18/18 09:31 Pulse 113 H 05/18/18 09:31 Resp 22 05/18/18 09:31 BP 134/78 05/18/18 09:31 Pulse Ox 97 05/18/18 09:31 - Exam Narrative exam: MSE: Appearance: in hospital attire Behavior: regular eye contact Speech: regular rate and tone Mood: labile Affect: congruent to mood Thought Process: disorganized Thought Content: denies SI/HI's with AVH's, paranoid, delusional Motor Activity: in restraints Cognition: A/Ox 3 Insight: poor Judgment: poor Assessment and Plan Impression: Unspecified Psychosis. Today the patient is still somewhat disorganized during the assessment. Today the patient is in restraints. QTc 483. Recommendation/Plan: Continue 1013 and start Geodon 20 mg PO BID for psychosis. Attempted to discuss possible metabolic side effects of Geodon with the patient. Give Geodon with food. Dipso: The patient will be referred to inpatient psy services once medically clear. Will staff with Dr Chelsey Bhakta.
--- NOTE | 2018-05-18 17:44 | Progress Note ---
Assessment and Plan Patient is a 72 year old man with multiple medical problems. He has a history of single-vessel coronary artery disease who has been lost to outpatient cardiac follow-up. A cardiac cath done 2013 reoprts a patent LAD stent. His latest card iac workup done in 2015 with a persantine thallium stress test reports no reversible ischemia, ejection fraction 50-55% by echocardiogram. He has chronic atrial fibrillation and prior deep vein thrombosis previously treated with Xarelto for prophylaxis. He has a history of bipolar disease, chronic h ypertension, obesity and chronic kidney disease. He also has a ascending aortic aneurysm, measured at 4.9 cm in 2014. It would be noted patient has had multiple ER visits in the last month. Patient is now admitted with rapid atrial fibrillation and behavioral disturbance. Patient has no chest pain, shortness of breath or palpitations. Noted with mild lower extremity edema. Chest x-ray reports no acute process. His presenting EKG shows rapid atrial fibrillation which was treated with IV Cardizem. - Bipolar disorder with Psychosis Continue home psych meds Obtain psych consult - Permanent atrial fibrillation cont digoxin and metoprolol for rate control. Cont xarelto as an outpatient. Conservative recommended by production maintenance technician - Chronic diastolic heart failure Echo 04/2017 at [place] - LVEF 45-50% with moderate RV dysfunctioin Diaphoresis, Elmer, beta bernardo, daily wt, strict input and output - History of CAD s/p PCI to LAD in 2011 Aspirin, beta blockers, statins. History of ascending aortic aneurysm measuring 4.9cm by CT Chronic DVT Chronic renal failure Systemic Hypertension Non-compliance Subjective Date of service: 05/18/18 Principal diagnosis: Afib Interval history: Patient confused and agitated wanting to leave his bed. No chest pain. Objective - Exam Narrative Exam: Constitutional: Confused. Well-nourished well-developed. In no distress Head: Normocephalic atraumatic Eyes: Pupils are equal round and reactive to light Nose: No enlarged turbinates, no septal deviation. Mouth: Moist mucous membranes. Neck: Supple no thyromegaly. No bruit. No JVD Heart: Regular rate and rhythm, S1-S2 normal. No rubs murmurs or gallop Lungs: Clear to auscultation bilaterally. no rales or rhonchi Abdomen: Soft, nontender. Bowel sound are present. Extremities: No edema, no cyanosis, no clubbing. Neuro: Alert oriented Oriented x3. No focal sensory or motor deficit. Skin: No rashes or hyperpigmented spots Musculoskeletal system: No joint pain or swelling Hematological: No petechia or subcutanous hemorrhages. Immunological: No multiple septic spots on the skin Lymphatic: No generalized lymphadenopathy Psychiatry: Cocaine abuse Euthymic. Calm. - Constitutional Vitals: Vital Signs - 12hr 05/18/18 05/18/18 05/18/18 06:00 09:05 09:31 Temperature 97.6 F 98.1 F Pulse Rate 117 H 113 H Respiratory 20 22 Rate Blood Pressure 139/78 134/78 [Right] O2 Sat by Pulse 99 95 97 Oximetry 05/18/18 15:45 Temperature 97.6 F Pulse Rate 126 H Respiratory 22 Rate Blood Pressure 151/94 [Right] O2 Sat by Pulse 97 Oximetry - Labs CBC & Chem 7: 05/18/18 04:56 05/18/18 04:56 Labs: Abnormal lab results 05/18/18 Range/Units 04:56 Hgb 9.3 L (11.8-15.2) gm/dl Hct 28.5 L (35.5-45.6) % MCV 72 L (84-94) fl MCH 24 L (28-32) pg RDW 17.5 H (13.2-15.2) % [place] % (Auto) 9.2 H (0.0-7.3) % Eos % (Auto) 6.0 H (0.0-4.3) % Lymph # 1.0 L (1.2-5.4) K/mm3
[2018-05-18] MEDS: LANOXIN PO SCH (18:30)
[2018-05-18] MEDS: GEODON PO SCH (21:02)
[2018-05-19] MEDS: HALDOL IM PRN ×2 (03:28→12:08)
[2018-05-19] MEDS: LASIX IV SCH ×2 (05:57→19:02)
[2018-05-19 07:29] LABS: Basophils % (Auto) 0.7 % (0.0-1.8); Eosinophils # (Auto) 0.3 K/mm3 (0.0-0.4); Eosinophils % (Auto) 3.9 % (0.0-4.3); Hematocrit 33.5 % (35.5-45.6); Hemoglobin 10.8 gm/dl (11.8-15.2); Lymphocytes # (Auto) 0.9 K/mm3 (1.2-5.4); Lymphocytes % (Auto) 13.2 % (13.4-35.0); Mean Corpuscular HGB Conc 32 % (32-34); Mean Corpuscular Volume 73 fl (84-94); Monocytes # (Auto) 0.4 K/mm3 (0.0-0.8); Monocytes % (Auto) 6.3 % (0.0-7.3); Platelet Count 206 K/mm3 (140-440); Red Blood Count 4.62 M/mm3 (3.65-5.03); Red Cell Distribution Width 17.2 % (13.2-15.2)
[2018-05-19 07:51] LABS: Alanine Aminotransferase 16 units/L (7-56); Albumin 3.6 g/dL (3.9-5); BUN/Creatinine Ratio 13; Blood Urea Nitrogen 15 mg/dL (9-20); Calcium 9.3 mg/dL (8.4-10.2); Hemolysis Index 5
[2018-05-19] MEDS: ROCEPHIN/NS 1 GM/50 ML 1 GM/50 ML BAG IV SCH (09:51)
[2018-05-19] MEDS: FLOMAX PO SCH (09:52)
[2018-05-19] MEDS: XARELTO PO SCH (09:52)
[2018-05-19] MEDS: LOPRESSOR PO SCH ×3 (09:52→21:07)
[2018-05-19] MEDS: SODIUM CHLORIDE FLUSH SYRINGE 10 ML IV SCH ×2 (09:53→21:08)
[2018-05-19] MEDS: GEODON PO SCH ×2 (09:53→21:08)
--- NOTE | 2018-05-19 14:28 | Progress Note ---
Assessment and Plan - Patient Problems (1) Chronic atrial fibrillation Current Visit: Yes Status: Acute Plan to address problem: We will continue rate control and oral anticoagulation for chronic atrial fibrillation. Subjective Date of service: 05/19/18 Principal diagnosis: Afib Interval history: Patient is confused, stating that he wants to leave and go to the bank. There is no chest pain, he otherwise looks well. Objective Vital Signs Temp Pulse Resp BP Pulse Ox 05/19/18 10:00 97 05/19/18 06:18 98.2 F 128 H 24 155/92 100 05/18/18 20:42 100 05/18/18 20:28 80 163/78 05/18/18 15:45 97.6 F 126 H 22 151/94 97 - Physical Examination General: No Apparent Distress, Other (confused, due to bipolar disease) HEENT: Positive: PERRL Neck: Positive: trachea midline Cardiac: Positive: Reg Rate and Rhythm, irregularly irregular Lungs: Positive: Decreased Breath Sounds Neuro: Positive: Grossly Intact, Weakness Skin: Positive: Clear Extremities: Absent: edema - Labs and Meds Cardiac Enzymes 05/19/18 Range/Units 07:05 AST 28 (5-40) units/L CBC 05/19/18 Range/Units 07:05 WBC 7.0 (4.5-11.0) K/mm3 RBC 4.62 (3.65-5.03) M/mm3 Hgb 10.8 L (11.8-15.2) gm/dl Hct 33.5 L (35.5-45.6) % Plt Count 206 (140-440) K/mm3 Lymph # 0.9 L (1.2-5.4) K/mm3 [place] # 0.4 (0.0-0.8) K/mm3 Eos # 0.3 (0.0-0.4) K/mm3 Baso # 0.0 (0.0-0.1) K/mm3 Comprehensive Metabolic Panel 05/19/18 Range/Units 07:05 Sodium 141 (137-145) mmol/L Potassium 3.4 L (3.6-5.0) mmol/L Chloride 101.9 (98-107) mmol/L Carbon Dioxide 27 (22-30) mmol/L BUN 15 (9-20) mg/dL Creatinine 1.2 (0.8-1.5) mg/dL Glucose 100 (75-100) mg/dL Calcium 9.3 (8.4-10.2) mg/dL AST 28 (5-40) units/L ALT 16 (7-56) units/L Alkaline Phosphatase 58 (35-129) units/L Total Protein 7.0 (6.3-8.2) g/dL Albumin 3.6 L (3.9-5) g/dL
[2018-05-19] MEDS: TYLENOL PO PRN (15:21)
--- NOTE | 2018-05-19 17:20 | Progress Note ---
Assessment and Plan Patient is a 72 year old man with multiple medical problems. He has a history of single-vessel coronary artery disease who has been lost to outpatient cardiac follow-up. A cardiac cath done 2013 reoprts a patent LAD stent. His latest card iac workup done in 2015 with a persantine thallium stress test reports no reversible ischemia, ejection fraction 50-55% by echocardiogram. He has chronic atrial fibrillation and prior deep vein thrombosis previously treated with Xarelto for prophylaxis. He has a history of bipolar disease, chronic h ypertension, obesity and chronic kidney disease. He also has a ascending aortic aneurysm, measured at 4.9 cm in 2014. It would be noted patient has had multiple ER visits in the last month. Patient is now admitted with rapid atrial fibrillation and behavioral disturbance. Patient has no chest pain, shortness of breath or palpitations. Noted with mild lower extremity edema. Chest x-ray reports no acute process. His presenting EKG shows rapid atrial fibrillation which was treated with IV Cardizem. - Bipolar disorder with Psychosis Continue home psych meds Obtain psych consult - Permanent atrial fibrillation. Rate not controlled cont digoxin and metoprolol for rate control. Cont xarelto as an outpatient. Conservative recommended by recruiter - Chronic diastolic heart failure Echo 04/2017 at [place] - LVEF 45-50% with moderate RV dysfunctioin Diuresis, Acei, beta bernardo, daily wt, strict input and output, statin - History of CAD s/p PCI to LAD in 2011 Aspirin, beta blockers, statins. History of ascending aortic aneurysm measuring 4.9cm by CT Chronic DVT Chronic renal failure Systemic Hypertension Non-compliance Subjective Date of service: 05/19/18 Principal diagnosis: Afib Interval history: Patient still confused. Say he want to walk around. No chest pain. Objective - Exam Narrative Exam: Constitutional: Confused. Well-nourished well-developed. In no distress Head: Normocephalic atraumatic Eyes: Pupils are equal round and reactive to light Nose: No enlarged turbinates, no septal deviation. Mouth: Moist mucous membranes. Neck: Supple no thyromegaly. No bruit. No JVD Heart: Regular rate and rhythm, S1-S2 normal. No rubs murmurs or gallop Lungs: Clear to auscultation bilaterally. no rales or rhonchi Abdomen: Soft, nontender. Bowel sound are present. Extremities: No edema, no cyanosis, no clubbing. Neuro: Alert oriented Oriented x3. No focal sensory or motor deficit. Skin: No rashes or hyperpigmented spots Musculoskeletal system: No joint pain or swelling Hematological: No petechia or subcutanous hemorrhages. Immunological: No multiple septic spots on the skin Lymphatic: No generalized lymphadenopathy Psychiatry: Cocaine abuse Euthymic. Calm. - Constitutional Vitals: Vital Signs - 12hr 05/19/18 05/19/18 05/19/18 06:18 10:00 15:21 Temperature 98.2 F Pulse Rate 128 H Respiratory 24 20 Rate Blood Pressure 155/92 [Right] O2 Sat by Pulse 100 97 Oximetry - Labs CBC & Chem 7: 05/19/18 07:05 05/19/18 07:05 Labs: Abnormal lab results 05/19/18 05/19/18 Range/Units 07:05 07:05 Hgb 10.8 L (11.8-15.2) gm/dl Hct 33.5 L (35.5-45.6) % MCV 73 L (84-94) fl MCH 23 L (28-32) pg RDW 17.2 H (13.2-15.2) % Lymph % (Auto) 13.2 L (13.4-35.0) % Lymph # 0.9 L (1.2-5.4) K/mm3 Seg Neutrophils % 75.9 H (40.0-70.0) % Potassium 3.4 L (3.6-5.0) mmol/L Albumin 3.6 L (3.9-5) g/dL
[2018-05-19] MEDS: LANOXIN PO SCH (19:01)
[2018-05-20] MEDS: TYLENOL PO PRN ×2 (03:56→20:25)
[2018-05-20] MEDS: LASIX IV SCH ×2 (05:41→17:18)
[2018-05-20] MEDS: LOPRESSOR PO SCH ×3 (08:00→21:00)
[2018-05-20 08:22] LABS: Alanine Aminotransferase 16 units/L (7-56); Albumin 3.6 g/dL (3.9-5); BUN/Creatinine Ratio 14; Blood Urea Nitrogen 17 mg/dL (9-20); Calcium 9.4 mg/dL (8.4-10.2); Hemolysis Index 56
[2018-05-20 08:27] LABS: Basophils % (Auto) 0.8 % (0.0-1.8); Eosinophils # (Auto) 0.3 K/mm3 (0.0-0.4); Eosinophils % (Auto) 5.4 % (0.0-4.3); Hematocrit 36.1 % (35.5-45.6); Hemoglobin 11.9 gm/dl (11.8-15.2); Lymphocytes # (Auto) 1.1 K/mm3 (1.2-5.4); Lymphocytes % (Auto) 19.3 % (13.4-35.0); Mean Corpuscular HGB Conc 33 % (32-34); Mean Corpuscular Volume 72 fl (84-94); Monocytes # (Auto) 0.5 K/mm3 (0.0-0.8); Monocytes % (Auto) 9.2 % (0.0-7.3); Platelet Count 210 K/mm3 (140-440); Red Blood Count 5.04 M/mm3 (3.65-5.03); Red Cell Distribution Width 16.9 % (13.2-15.2)
[2018-05-20] MEDS: XARELTO PO SCH (09:54)
[2018-05-20] MEDS: FLOMAX PO SCH (09:55)
[2018-05-20] MEDS: SODIUM CHLORIDE FLUSH SYRINGE 10 ML IV SCH (09:55)
[2018-05-20] MEDS: GEODON PO SCH ×2 (09:55→21:00)
[2018-05-20] MEDS: ROCEPHIN/NS 1 GM/50 ML 1 GM/50 ML BAG IV SCH (09:56)
--- NOTE | 2018-05-20 12:31 | Progress Note ---
Assessment and Plan Patient is a 72 year old man with multiple medical problems. He has a history of single-vessel coronary artery disease who has been lost to outpatient cardiac follow-up. A cardiac cath done 2013 reoprts a patent LAD stent. His latest card iac workup done in 2015 with a persantine thallium stress test reports no reversible ischemia, ejection fraction 50-55% by echocardiogram. He has chronic atrial fibrillation and prior deep vein thrombosis previously treated with Xarelto for prophylaxis. He has a history of bipolar disease, chronic h ypertension, obesity and chronic kidney disease. He also has a ascending aortic aneurysm, measured at 4.9 cm in 2014. It would be noted patient has had multiple ER visits in the last month. Patient is now admitted with rapid atrial fibrillation and behavioral disturbance. Patient has no chest pain, shortness of breath or palpitations. Noted with mild lower extremity edema. Chest x-ray reports no acute process. His presenting EKG shows rapid atrial fibrillation which was treated with IV Cardizem. - Bipolar disorder with Psychosis Continue home psych meds Obtain psych consult - Permanent atrial fibrillation. Rate not controlled cont digoxin and metoprolol for rate control. Cont xarelto as an outpatient. Conservative recommended by policy specialist - Chronic diastolic heart failure Echo 04/2017 at [place] - LVEF 45-50% with moderate RV dysfunctioin Diuresis, Acei, beta bernardo, daily wt, strict input and output, statin - History of CAD s/p PCI to LAD in 2011 Aspirin, beta blockers, statins. - History of ascending aortic aneurysm measuring 4.9cm by CT Chronic DVT - Non-compliance - Disposition: To be admitted to inpatient psychiatric unit past psych recommendation when clinically stable Subjective Date of service: 05/20/18 Principal diagnosis: Afib, chronic diastolic heart failure, presented to aneurysm, CAD Interval history: Patient still confused. Say he want to go to the bank. No chest pain. Objective - Exam Narrative Exam: Constitutional: Confused. In no distress Head: Normocephalic atraumatic Eyes: Pupils are equal round and reactive to light Nose: No enlarged turbinates, no septal deviation. Mouth: Moist mucous membranes. Neck: Supple no thyromegaly. No bruit. No JVD Heart: Irregularly irregular. No rubs murmurs or gallop Lungs: Clear to auscultation bilaterally. no rales or rhonchi Abdomen: Soft, nontender. Bowel sound are present. Extremities: No edema, no cyanosis, no clubbing. Neuro: Confused. No focal sensory or motor deficit. Skin: No rashes or hyperpigmented spots Musculoskeletal system: No joint pain or swelling Hematological: No petechia or subcutanous hemorrhages. Immunological: No multiple septic spots on the skin Lymphatic: No generalized lymphadenopathy Psychiatry: Cocaine abuse continues Euthymic. Calm. - Constitutional Vitals: Vital Signs - 12hr 05/20/18 05/20/18 05/20/18 01:32 01:58 06:53 Temperature 97.2 F L 98.5 F Pulse Rate 76 122 H Respiratory 20 20 Rate Blood Pressure 129/70 161/77 O2 Sat by Pulse 100 100 Oximetry 05/20/18 09:13 Temperature 98.1 F Pulse Rate 79 Respiratory 20 Rate Blood Pressure 98/57 O2 Sat by Pulse 98 Oximetry - Labs CBC & Chem 7: 05/20/18 07:37 05/20/18 07:37 Labs: Abnormal lab results 05/20/18 05/20/18 Range/Units 07:37 07:37 RBC 5.04 H (3.65-5.03) M/mm3 MCV 72 L (84-94) fl MCH 24 L (28-32) pg RDW 16.9 H (13.2-15.2) % [place] % (Auto) 9.2 H (0.0-7.3) % Eos % (Auto) 5.4 H (0.0-4.3) % Lymph # 1.1 L (1.2-5.4) K/mm3 Chloride 97.6 L (98-107) mmol/L Glucose 106 H (75-100) mg/dL Albumin 3.6 L (3.9-5) g/dL
--- NOTE | 2018-05-20 13:48 | Progress Note ---
Assessment and Plan - Patient Problems (1) Chronic atrial fibrillation Current Visit: Yes Status: Acute Plan to address problem: We will continue rate control and oral anticoagulation for chronic atrial fibrillation. Subjective Date of service: 05/20/18 Principal diagnosis: Afib, chronic diastolic heart failure, presented to aneurysm, CAD Interval history: Patient is comfortable, no cardiac complaints. Objective Vital Signs Temp Pulse Resp BP BP Pulse Ox 05/20/18 09:13 98.1 F 79 20 98/57 98 05/20/18 06:53 98.5 F 122 H 20 161/77 100 05/20/18 01:58 76 100 05/20/18 01:32 97.2 F L 20 129/70 05/19/18 21:07 105 H 148/106 05/19/18 20:26 98.3 F 105 H 148/106 97 05/19/18 19:01 78 05/19/18 16:35 98.6 F 78 20 152/75 100 05/19/18 15:21 20 - Physical Examination General: No Apparent Distress, Other (confused, due to bipolar disease) HEENT: Positive: PERRL Neck: Positive: trachea midline Cardiac: Positive: irregularly irregular Lungs: Positive: Decreased Breath Sounds Neuro: Positive: Grossly Intact, Weakness Skin: Positive: Clear Extremities: Absent: edema - Labs and Meds Cardiac Enzymes 05/20/18 Range/Units 07:37 AST 32 (5-40) units/L CBC 05/20/18 Range/Units 07:37 WBC 5.8 (4.5-11.0) K/mm3 RBC 5.04 H (3.65-5.03) M/mm3 Hgb 11.9 (11.8-15.2) gm/dl Hct 36.1 (35.5-45.6) % Plt Count 210 (140-440) K/mm3 Lymph # 1.1 L (1.2-5.4) K/mm3 [place] # 0.5 (0.0-0.8) K/mm3 Eos # 0.3 (0.0-0.4) K/mm3 Baso # 0.0 (0.0-0.1) K/mm3 Comprehensive Metabolic Panel 05/20/18 Range/Units 07:37 Sodium 138 (137-145) mmol/L Potassium 3.9 (3.6-5.0) mmol/L Chloride 97.6 L (98-107) mmol/L Carbon Dioxide 25 (22-30) mmol/L BUN 17 (9-20) mg/dL Creatinine 1.2 (0.8-1.5) mg/dL Glucose 106 H (75-100) mg/dL Calcium 9.4 (8.4-10.2) mg/dL AST 32 (5-40) units/L ALT 16 (7-56) units/L Alkaline Phosphatase 59 (35-129) units/L Total Protein 7.4 (6.3-8.2) g/dL Albumin 3.6 L (3.9-5) g/dL
[2018-05-20] MEDS: HALDOL IM PRN ×2 (15:56→23:09)
[2018-05-20] MEDS: LANOXIN PO SCH (16:06)
[2018-05-21] MEDS: TYLENOL PO PRN ×2 (02:22→06:15)
[2018-05-21] MEDS: SODIUM CHLORIDE FLUSH SYRINGE 10 ML IV SCH ×3 (02:35→21:28)
[2018-05-21] MEDS: HALDOL IM PRN (03:37)
[2018-05-21] MEDS: LASIX IV SCH ×2 (06:32→17:05)
[2018-05-21 07:06] LABS: Basophils % (Auto) 0.6 % (0.0-1.8); Eosinophils # (Auto) 0.3 K/mm3 (0.0-0.4); Eosinophils % (Auto) 4.5 % (0.0-4.3); Hematocrit 35.2 % (35.5-45.6); Hemoglobin 11.2 gm/dl (11.8-15.2); Lymphocytes % (Auto) 16.3 % (13.4-35.0); Mean Corpuscular HGB Conc 32 % (32-34); Mean Corpuscular Volume 72 fl (84-94); Monocytes # (Auto) 0.6 K/mm3 (0.0-0.8); Monocytes % (Auto) 8.7 % (0.0-7.3); Platelet Count 228 K/mm3 (140-440); Red Blood Count 4.89 M/mm3 (3.65-5.03); Red Cell Distribution Width 16.9 % (13.2-15.2)
[2018-05-21 07:34] LABS: Alanine Aminotransferase 16 units/L (7-56); Albumin 3.5 g/dL (3.9-5); BUN/Creatinine Ratio 15; Blood Urea Nitrogen 20 mg/dL (9-20); Calcium 9.5 mg/dL (8.4-10.2); Hemolysis Index 5
[2018-05-21] MEDS: LOPRESSOR PO SCH ×3 (09:16→21:27)
[2018-05-21] MEDS: GEODON PO SCH ×2 (09:16→21:27)
[2018-05-21] MEDS: XARELTO PO SCH (09:16)
[2018-05-21] MEDS: FLOMAX PO SCH (09:16)
[2018-05-21] MEDS: ROCEPHIN/NS 1 GM/50 ML 1 GM/50 ML BAG IV SCH (09:17)
--- NOTE | 2018-05-21 12:21 | Progress Note ---
Assessment and Plan - Patient Problems (1) Chronic atrial fibrillation Current Visit: Yes Status: Acute Plan to address problem: Cardiac history of coronary artery disease and a patent left anterior descending artery stent, normal left ventricle systolic function. He has an asymptomatic ascending aortic aneurysm that was 4.9 cm on the most recent assessment. He has chronic atrial fibrillation on a rate control strategy, and oral anticoagulation with Xarelto. Recommendations: Medical therapy for coronary artery disease, atrial fibrillation rate control, oral anticoagulation. Otherwise no further cardiac workup, we will follow on a when necessary basis. (2) Coronary artery disease Current Visit: Yes Status: Acute Plan to address problem: Cardiac history of coronary artery disease and a patent left anterior descending artery stent, normal left ventricle systolic function. He has an asymptomatic ascending aortic aneurysm that was 4.9 cm on the most recent assessment. He has chronic atrial fibrillation on a rate control strategy, and oral anticoagulation with Xarelto. Recommendations: Medical therapy for coronary artery disease, atrial fibrillation rate control, oral anticoagulation. Otherwise no further cardiac workup, we will follow on a when necessary basis. Subjective Date of service: 05/21/18 Principal diagnosis: Afib, chronic diastolic heart failure, presented to aneurysm, CAD Interval history: Patient is comfortable, no cardiac complaints. He continues to exhibit symptoms of bipolar disease, with conversations that are not applicable to his current situation. He remains on a 24 observation watch. Objective Vital Signs Temp Pulse Resp Resp BP BP Pulse Ox 05/21/18 12:09 98.2 F 96 H 20 125/66 98 05/21/18 08:31 97.3 F L 87 20 125/73 100 05/21/18 07:15 17 05/21/18 06:15 17 05/21/18 04:29 98.3 F 95 H 20 126/76 98 05/21/18 03:22 17 05/21/18 02:22 17 05/20/18 22:00 17 17 05/20/18 21:25 17 05/20/18 21:00 84 158/76 05/20/18 20:25 17 05/20/18 20:24 98.3 F 82 20 151/70 97 05/20/18 18:38 98.5 F 81 18 121/66 99 05/20/18 14:17 97.8 F 94 H 20 132/81 - Physical Examination General: No Apparent Distress, Other (confused, due to bipolar disease) HEENT: Positive: PERRL Neck: Positive: trachea midline Cardiac: Positive: irregularly irregular Lungs: Positive: Decreased Breath Sounds Neuro: Positive: Grossly Intact, Weakness Skin: Positive: Clear Extremities: Absent: edema - Labs and Meds Cardiac Enzymes 05/21/18 Range/Units 06:10 AST 27 (5-40) units/L CBC 05/21/18 Range/Units 06:10 WBC 6.4 (4.5-11.0) K/mm3 RBC 4.89 (3.65-5.03) M/mm3 Hgb 11.2 L (11.8-15.2) gm/dl Hct 35.2 L (35.5-45.6) % Plt Count 228 (140-440) K/mm3 Lymph # 1.0 L (1.2-5.4) K/mm3 [place] # 0.6 (0.0-0.8) K/mm3 Eos # 0.3 (0.0-0.4) K/mm3 Baso # 0.0 (0.0-0.1) K/mm3 Comprehensive Metabolic Panel 05/21/18 Range/Units 06:10 Sodium 140 (137-145) mmol/L Potassium 3.6 (3.6-5.0) mmol/L Chloride 99.6 (98-107) mmol/L Carbon Dioxide 28 (22-30) mmol/L BUN 20 (9-20) mg/dL Creatinine 1.3 (0.8-1.5) mg/dL Glucose 112 H (75-100) mg/dL Calcium 9.5 (8.4-10.2) mg/dL AST 27 (5-40) units/L ALT 16 (7-56) units/L Alkaline Phosphatase 57 (35-129) units/L Total Protein 7.0 (6.3-8.2) g/dL Albumin 3.5 L (3.9-5) g/dL
--- NOTE | 2018-05-21 13:16 | Progress Note ---
Subjective - Reason for Consult Consult date: 05/21/18 Reason for consult: Psychiatry Follow-up - Chief Complaint Chief complaint: "I want to eat my breakfast" 72 y.o. AA male who presented to the ER for bizarre behavior. The patient has several ER visit this month. Today the patient is still somewhat disorganized during the assessment. He continues to be fixated on going to the bank for multiple reasons that isn't logical. Per collateral informations from his daughter Parris Jeffrey at [phone], she stated that her father have been declining since 2008. She stated that her father have a hx of bipolar do. She stated that he have been to several inpatient mental health facilities in the past. The patient denies SI/HI's and AVH's. He did state that he wasn't sleeping at night. Today the patient was able to ID the current/past US President when asked. Also, he was able to recall 2/3 numbers within 5 mins. Mental Status Exam - Vital signs Last Vital Signs Temp 98.2 F 05/21/18 12:09 Pulse 96 H 05/21/18 12:09 Resp 20 05/21/18 12:09 BP 125/66 05/21/18 12:09 Pulse Ox 98 05/21/18 12:09 - Exam Narrative exam: MSE: Appearance: in hospital attire Behavior: regular eye contact Speech: regular rate and tone Mood: labile Affect: congruent to mood Thought Process: disorganized Thought Content: denies SI/HI's with AVH's, delusional Motor Activity: in restraints Cognition: A/Ox 3 Insight: poor Judgment: poor Assessment and Plan Impression: Unspecified Psychosis. Today the patient is still somewhat disorganized during the assessment. Recommendation/Plan: Continue 1013 and Geodon 20 mg PO BID for psychosis and start Remeron 7.5 mg PO HS for sleep. Attempted to discuss possible metabolic side effects of Geodon with the patient. Also, attempted to discussed suicidality/medication induced eugenia with the patient reference Remeron. Give Geodon with food. Dipso: The patient will be referred to inpatient psy services once medically clear. Staffed with Dr Miguel Bhakta.
[2018-05-21] MEDS: LANOXIN PO SCH (17:05)
--- NOTE | 2018-05-21 17:30 | Progress Note ---
Assessment and Plan Patient is a 72 year old man with multiple medical problems. He has a history of single-vessel coronary artery disease who has been lost to outpatient cardiac follow-up. A cardiac cath done 2013 reoprts a patent LAD stent. His latest card iac workup done in 2015 with a persantine thallium stress test reports no reversible ischemia, ejection fraction 50-55% by echocardiogram. He has chronic atrial fibrillation and prior deep vein thrombosis previously treated with Xarelto for prophylaxis. He has a history of bipolar disease, chronic h ypertension, obesity and chronic kidney disease. He also has a ascending aortic aneurysm, measured at 4.9 cm in 2014. It would be noted patient has had multiple ER visits in the last month. Patient is now admitted with rapid atrial fibrillation and behavioral disturbance. Patient has no chest pain, shortness of breath or palpitations. Noted with mild lower extremity edema. Chest x-ray reports no acute process. His presenting EKG shows rapid atrial fibrillation which was treated with IV Cardizem. - Bipolar disorder with Psychosis Continue home psych meds Obtain psych consult - Permanent atrial fibrillation. Rate not controlled cont digoxin and metoprolol for rate control. Cont xarelto as an outpatient. Conservative recommended by plant operations engineer - Chronic diastolic heart failure Echo 04/2017 at [facility] - LVEF 45-50% with moderate RV dysfunctioin Diuresis, Acei, beta bernardo, daily wt, strict input and output, statin - History of CAD s/p PCI to LAD in 2011 Aspirin, beta blockers, statins. - History of ascending aortic aneurysm measuring 4.9cm by CT Monitor Chronic DVT - Non-compliance - Disposition: Pt is clinically stable. For transfer to [facility] it Subjective Date of service: 05/21/18 Principal diagnosis: Afib, chronic diastolic heart failure, presented to aneurysm, CAD Interval history: Patient still confused. Though less so. No chest pain. Objective - Exam Narrative Exam: Constitutional: Confused. In no distress Head: Normocephalic atraumatic Eyes: Pupils are equal round and reactive to light Nose: No enlarged turbinates, no septal deviation. Mouth: Moist mucous membranes. Neck: Supple no thyromegaly. No bruit. No JVD Heart: Irregularly irregular. No rubs murmurs or gallop Lungs: Clear to auscultation bilaterally. no rales or rhonchi Abdomen: Soft, nontender. Bowel sound are present. Extremities: No edema, no cyanosis, no clubbing. Neuro: Confused. No focal sensory or motor deficit. Skin: No rashes or hyperpigmented spots Musculoskeletal system: No joint pain or swelling Hematological: No petechia or subcutanous hemorrhages. Immunological: No multiple septic spots on the skin Lymphatic: No generalized lymphadenopathy Psychiatry: Cocaine abuse continues Euthymic. Calm. - Constitutional Vitals: Vital Signs - 12hr 05/21/18 05/21/18 05/21/18 06:15 07:15 08:31 Temperature 97.3 F L Pulse Rate 87 Respiratory 17 17 20 Rate Blood Pressure Blood Pressure 125/73 [Right] O2 Sat by Pulse 100 Oximetry 05/21/18 05/21/18 12:09 16:10 Temperature 98.2 F 98.6 F Pulse Rate 96 H 86 Respiratory 20 20 Rate Blood Pressure 125/66 Blood Pressure 135/76 [Right] O2 Sat by Pulse 98 100 Oximetry - Labs CBC & Chem 7: 05/21/18 06:10 05/21/18 06:10 Labs: Abnormal lab results 05/21/18 05/21/18 Range/Units 06:10 06:10 Hgb 11.2 L (11.8-15.2) gm/dl Hct 35.2 L (35.5-45.6) % MCV 72 L (84-94) fl MCH 23 L (28-32) pg RDW 16.9 H (13.2-15.2) % [place] % (Auto) 8.7 H (0.0-7.3) % Eos % (Auto) 4.5 H (0.0-4.3) % Lymph # 1.0 L (1.2-5.4) K/mm3 Glucose 112 H (75-100) mg/dL Albumin 3.5 L (3.9-5) g/dL
[2018-05-21] MEDS ORDERED: REMERON PO SCH (22:00)
--- NOTE | 2018-05-21 23:48 | History and Physical Report ---
History of Present Illness Date of admission: 05/17/18 04:41 Past History Past Medical History: heart failure Past Surgical History: Other (Cardiac stents) Social history: Lives alone Medications and Allergies Allergies Allergy/AdvReac Type Severity Reaction Status Date / Time shellfish derived Allergy Itching Verified 05/12/18 14:53 Home Medications Medication Instructions Recorded Confirmed Last Taken Type AtorvaSTATin [Lipitor] 20 mg PO QHS #30 tablet 09/18/17 05/17/18 Unknown Rx Digoxin [Lanoxin] 0.25 mg PO DAILY@1700 #30 tablet 09/18/17 05/17/18 Unknown Rx Divalproex ER [Depakote ER] 300 mg PO TID #90 tablet 09/18/17 05/17/18 Unknown Rx Losartan [Cozaar] 25 mg PO QDAY #30 tablet 09/18/17 05/17/18 Unknown Rx Metoprolol [Lopressor TAB] 50 mg PO TID #180 tablet 09/18/17 05/17/18 Unknown Rx Rivaroxaban [Xarelto] 20 mg PO QDAY #30 tablet 09/18/17 05/17/18 Unknown Rx Tamsulosin [Flomax] 0.4 mg PO DAILY #30 capsule 09/18/17 05/17/18 Unknown Rx Acetaminophen [Tylenol 8 Hour] 650 mg PO Q8H #30 tablet.er 05/11/18 05/17/18 Unknown Rx Furosemide [Lasix TAB] 40 mg PO BID #30 tablet 05/13/18 05/17/18 Unknown Rx Active Meds: Active Medications Acetaminophen (Tylenol) 650 mg PO Q4H PRN PRN Reason: Pain MILD(1-3)/Fever >100.5/IRBY Last Admin: 05/21/18 06:15 Dose: 650 mg Documented by: Atorvastatin Calcium (Lipitor) 20 mg PO QHS [facility] Last Admin: 05/21/18 21:28 Dose: 20 mg Documented by: Digoxin (Lanoxin) 0.25 mg PO DAILY@1700 [facility] Last Admin: 05/21/18 17:05 Dose: 0.25 mg Documented by: Furosemide (Lasix) 40 mg IV 0600,1800 [facility] Last Admin: 05/21/18 17:05 Dose: 40 mg Documented by: Haloperidol Lactate (Haldol) 5 mg IM Q6H PRN PRN Reason: Agitation Last Admin: 05/21/18 03:37 Dose: 5 mg Documented by: Ceftriaxone Sodium (Rocephin/Ns 1 Gm/50 Ml) 1 gm in 50 mls @ 100 mls/hr IV Q24HR [facility]; Protocol Last Admin: 05/21/18 09:17 Dose: 100 mls/hr Documented by: Metoprolol Tartrate (Lopressor) 50 mg PO TID [facility] Last Admin: 05/21/18 21:27 Dose: 50 mg Documented by: Mirtazapine (Remeron) 7.5 mg PO QHS [facility] Last Admin: 05/21/18 21:27 Dose: 7.5 mg Documented by: Ondansetron HCl (Zofran) 4 mg IV Q8H PRN PRN Reason: Nausea And Vomiting Rivaroxaban (Xarelto) 20 mg PO QDAY [facility]; Protocol Last Admin: 05/21/18 09:16 Dose: 20 mg Documented by: Sodium Chloride (Sodium Chloride Flush Syringe 10 Ml) 10 ml IV BID [facility] Last Admin: 05/21/18 21:28 Dose: 10 ml Documented by: Sodium Chloride (Sodium Chloride Flush Syringe 10 Ml) 10 ml IV PRN PRN PRN Reason: LINE FLUSH Tamsulosin HCl (Flomax) 0.4 mg PO DAILY [facility] Last Admin: 05/21/18 09:16 Dose: 0.4 mg Documented by: Ziprasidone (Geodon) 20 mg PO BID [facility] Last Admin: 05/21/18 21:27 Dose: 20 mg Documented by: Exam - Constitutional Vitals: Temp Pulse Resp BP Pulse Ox 97.6 F 83 20 123/64 100 05/21/18 21:00 05/21/18 21:00 05/21/18 21:00 05/21/18 21:00 05/21/18 21:00 Results - Labs CBC & Chem 7: 05/21/18 06:10 05/21/18 06:10 Labs: Abnormal lab results 05/21/18 05/21/18 Range/Units 06:10 06:10 Hgb 11.2 L (11.8-15.2) gm/dl Hct 35.2 L (35.5-45.6) % MCV 72 L (84-94) fl MCH 23 L (28-32) pg RDW 16.9 H (13.2-15.2) % [place] % (Auto) 8.7 H (0.0-7.3) % Eos % (Auto) 4.5 H (0.0-4.3) % Lymph # 1.0 L (1.2-5.4) K/mm3 Glucose 112 H (75-100) mg/dL Albumin 3.5 L (3.9-5) g/dL
[2018-05-22 05:36] LABS: Basophils # (Auto) 0.1 K/mm3 (0.0-0.1); Basophils % (Auto) 0.9 % (0.0-1.8); Eosinophils # (Auto) 0.4 K/mm3 (0.0-0.4); Eosinophils % (Auto) 7.5 % (0.0-4.3); Hematocrit 34.6 % (35.5-45.6); Hemoglobin 11.1 gm/dl (11.8-15.2); Lymphocytes # (Auto) 1.1 K/mm3 (1.2-5.4); Lymphocytes % (Auto) 19.6 % (13.4-35.0); Mean Corpuscular HGB Conc 32 % (32-34); Mean Corpuscular Volume 73 fl (84-94); Monocytes # (Auto) 0.6 K/mm3 (0.0-0.8); Monocytes % (Auto) 10.8 % (0.0-7.3); Platelet Count 215 K/mm3 (140-440); Red Blood Count 4.76 M/mm3 (3.65-5.03); Red Cell Distribution Width 16.8 % (13.2-15.2)
[2018-05-22] MEDS: LASIX IV SCH (05:42)
[2018-05-22 06:07] LABS: Alanine Aminotransferase 18 units/L (7-56); Albumin 3.6 g/dL (3.9-5); BUN/Creatinine Ratio 19; Blood Urea Nitrogen 25 mg/dL (9-20); Calcium 9.5 mg/dL (8.4-10.2); Hemolysis Index 10
--- NOTE | 2018-05-22 09:28 | Discharge Summary ---
Providers - Providers Date of Admission: 05/17/18 04:41 Attending physician: MELVA ENRIQUE MD 05/17/18 00:19 Consult to Mental Health [CONS] Urgent Reason For Exam: psych Place consult to:: drag down concessionist Notified:: awaiting call back 05/17/18 04:41 Consult to Physician [CONS] Routine Comment: Consulting Provider: HEIDI LOMBARDI Physician Instructions: Reason For Exam: afib/rvr 05/17/18 05:50 psychiatry consult [Consult to Mental Health] [CONS] Routine Reason For Exam: bipolar Place consult to:: psych Notified:: SANDRO Phone number called:: [phone] Was contact made?: Yes If yes, spoke with:: SANDRO Time called:: 09:03 05/17/18 16:55 Consult to Wound/ET Nurse [CONS] Routine Reason For Exam: wound eval [facility] Condition: Good Hospital course: 72m w pmh of afib on van, bipolar disorder, hypertension. The patient has multiple hospitalizations, he frequently signed out AGAINST MEDICAL ADVICE. He has been on adherence to medications and treatments. The patient was admitted with disorganized behavior and combative behavior. Hospital course The patient was empirically treated with antibiotics for UTI His cardiac medications were optimized for chronic atrial fibrillation and coronary artery disease. He was continued on oral anticoagulation. He was also managed by psychiatry for psychosis and eugenia. The patient's non-medically optimized for transfer to inpatient psychiatric units, therefore discharged to geriatric psych unit. -The patient is to have aortic imaging every 3-6 months given for Aortic aneurysm Diagnoses Bipolar disorder with eugenia and acute psychosis Chronic atrial fibrillation, with hypercoagulable states Chronic systolic heart failure History of CAD status post PCI and stents History of ascending aortic aneurysm, 4.[address] hx of Chronic DVT Nonadherence BPH Disposition: DC/TX-65 PSY HOSP/PSY UNIT Time spent for discharge: 33 mins Core Measure Documentation - Palliative Care Palliative Care/ Comfort Measures: Not Applicable - Core Measures Any of the following diagnoses?: heart failure - Heart Failure Discharge Requirements HUSAM/ARB for LVSD if EF <40%: Not Applicable Beta bernardo at discharge: Yes Exam - Constitutional Vitals: Temp Pulse Resp BP Pulse Ox 98.0 F 78 20 137/81 100 05/22/18 08:00 05/22/18 08:00 05/22/18 08:00 05/22/18 08:00 05/22/18 08:00 General appearance: Present: no acute distress, well-nourished - EENT Eyes: Present: PERRL ENT: hearing intact, clear oral mucosa - Neck Neck: Present: supple, normal ROM - Respiratory Respiratory effort: normal Respiratory: bilateral: CTA - Cardiovascular Heart Sounds: Present: S1 & S2. Absent: rub, click - Extremities Extremities: pulses symmetrical, No edema Peripheral Pulses: within normal limits - Abdominal General gastrointestinal: Present: soft, non-tender, non-distended, normal bowel sounds Male genitourinary: Present: normal - Integumentary Integumentary: Present: clear, warm, dry - Musculoskeletal Musculoskeletal: gait normal, strength equal bilaterally - Psychiatric Psychiatric: no appropriate mood/affect, no intact judgment & insight - Neurologic Neurologic: CNII-XII intact, moves all extremities Plan Follow up with: SAAD MAK MD [Primary Care Provider] - 3-5 Days
[2018-05-22] MEDS: ROCEPHIN/NS 1 GM/50 ML 1 GM/50 ML BAG IV SCH (10:05)
[2018-05-22] MEDS: LOPRESSOR PO SCH ×2 (10:05→14:53)
[2018-05-22] MEDS: XARELTO PO SCH (10:05)
[2018-05-22] MEDS: GEODON PO SCH (10:05)
[2018-05-22] MEDS: FLOMAX PO SCH (10:05)
[2018-05-22] MEDS: SODIUM CHLORIDE FLUSH SYRINGE 10 ML IV SCH (10:06)
--- NOTE | 2018-05-22 13:34 | Progress Note ---
Subjective - Reason for Consult Consult date: 05/22/18 Reason for consult: Psychiatry Follow-up - Chief Complaint Chief complaint: "Where will I be tomorrow" 72 y.o. AA male who presented to the ER for bizarre behavior. The patient has several ER visit this month. Today the patient is still somewhat disorganized during the assessment. He continue to be delusional with his thoughts. He had to be redirected to keep him on topic several times during the interview. He denies SI/HI's and AVH's. No indications of side effects of his medications. Mental Status Exam - Vital signs Last Vital Signs Temp 98.0 F 05/22/18 08:00 Pulse 78 05/22/18 10:05 Resp 20 05/22/18 08:00 BP 137/81 05/22/18 10:05 Pulse Ox 100 05/22/18 08:00 - Exam Narrative exam: MSE: Appearance: in hospital attire Behavior: regular eye contact Speech: regular rate and tone Mood: labile Affect: congruent to mood Thought Process: disorganized Thought Content: denies SI/HI's with AVH's, delusional Motor Activity: sitting up in bed Cognition: A/Ox 3 Insight: poor Judgment: poor Assessment and Plan Impression: Unspecified Psychosis. Today the patient is still somewhat disorganized during the assessment. Recommendation/Plan: Continue 1013, Geodon 20 mg PO BID for psychosis, and Remeron 7.5 mg PO HS for sleep. Attempted to discuss possible metabolic side effects of Geodon with the patient. Also, attempted to discussed suicidality/medication induced eugenia with the patient reference Remeron. Give Geodon with food. Psy sign off. Dipso: The patient is pending acceptance with the [facility] unit on the 5th floor. Will staff with Dr Miguel Bhakta.
[2018-05-22 14:51] VITALS: BP 117/55
[2018-05-23] MEDS ORDERED: LASIX IV SCH (10:00)
== END 2018-05-22 14:45 | DRG 308 ==
LOC: ED 23:08 → 4A 05-17 04:41
PROVIDERS: ADMIT Internal Medicine; ATTEND Internal Medicine
DX: I48.91 Unspecified atrial fibrillation (principal); N17.0 Acute kidney failure with tubular necrosis; N39.0 Urinary tract infection, site not specified; F23 Brief psychotic disorder; D68.59 Other primary thrombophilia; I50.22 Chronic systolic (congestive) heart failure; I82.509 Chronic embolism and thrombosis of unspecified deep veins of unspecified lower extremity; I13.0 Hypertensive heart and chronic kidney disease with heart failure and stage 1 through stage 4 chronic kidney disease, or unspecified chronic kidney disease; I25.10 Atherosclerotic heart disease of native coronary artery without angina pectoris; N40.0 Benign prostatic hyperplasia without lower urinary tract symptoms; E66.9 Obesity, unspecified; N18.9 Chronic kidney disease, unspecified; F06.33 Mood disorder due to known physiological condition with manic features; I71.2 Thoracic aortic aneurysm, without rupture; M19.90 Unspecified osteoarthritis, unspecified site; Z79.01 Long term (current) use of anticoagulants; Z95.5 Presence of coronary angioplasty implant and graft; Z91.14 Patient's other noncompliance with medication regimen; Z91.013 Allergy to seafood; Z79.899 Other long term (current) drug therapy; Z68.29 Body mass index [BMI] 29.0-29.9, adult; Z86.73 Personal history of transient ischemic attack (TIA), and cerebral infarction without residual deficits; Z82.49 Family history of ischemic heart disease and other diseases of the circulatory system; Z83.3 Family history of diabetes mellitus; I25.2 Old myocardial infarction
CPT/HCPCS: 36415; 71045; 80048; 80053; 80162; 80307; 80320; 81001; 82550; 82553; 83735; 84484; 85025; 85027; 85610; 87086; 93005; 93010; 96372; 96374; G0378; A9270-GY; G0480; J0696; J1200; J1630; J1940; J2060; J3486

== ENCOUNTER 2018-05-22 13:09 | Inpatient (IN) | payer MEDICARE ==
[2018-05-23] MEDS ORDERED: HALDOL IM PRN (06:49)
--- NOTE | 2018-05-23 06:49 | History and Physical Report ---
History of Present Illness Date of examination: 05/22/18 Date of admission: 05/22/18 15:35 Chief complaint: I need to sleep History of present illness: 72 YO Male with HTN, Atrial fib, CHF, CVA, Bipolar Disorder, Thoracic Aneurysm admitted to Geriatric Psychiatry unit. Pt seen and evaluated upon arrival to his room. Pt resting comfortably in Day Room, discussing politics with another resident. Pt denies fever, chills, CP, Palpitationa, NVD, Trauma, Productive cou gh or recent ill contacts. No reported nursing events. Past History Past Medical History: atrial fib, CAD, hypertension, stroke, other (Bipolar Disorder) Past Surgical History: tonsillectomy, Other (IVC Filter placement) Social history: . denies: smoking, alcohol abuse Family history: diabetes, hypertension Medications and Allergies Allergies Allergy/AdvReac Type Severity Reaction Status Date / Time shellfish derived Allergy Itching Verified 05/12/18 14:53 Home Medications Medication Instructions Recorded Confirmed Last Taken Type AtorvaSTATin [Lipitor] 20 mg PO QHS #30 tablet 09/18/17 05/17/18 Unknown Rx Digoxin [Lanoxin] 0.25 mg PO DAILY@1700 #30 tablet 09/18/17 05/17/18 Unknown Rx Losartan [Cozaar] 25 mg PO QDAY #30 tablet 09/18/17 05/17/18 Unknown Rx Metoprolol [Lopressor TAB] 50 mg PO TID #180 tablet 09/18/17 05/17/18 Unknown Rx Rivaroxaban [Xarelto] 20 mg PO QDAY #30 tablet 09/18/17 05/17/18 Unknown Rx Tamsulosin [Flomax] 0.4 mg PO DAILY #30 capsule 09/18/17 05/17/18 Unknown Rx Acetaminophen [Tylenol 8 Hour] 650 mg PO Q8H #30 tablet.er 05/11/18 05/17/18 05/21/18 Rx 650mg Furosemide [Lasix TAB] 40 mg PO BID #30 tablet 05/13/18 05/17/18 Unknown Rx Depakote ER 300 mg PO TID 05/22/18 05/22/18 Unknown History Haloperidol Lactate [Haldol] 5 mg IM Q6H PRN vial 05/22/18 05/22/18 05/21/18 Rx 5mg Mirtazapine [Remeron] 7.5 mg PO QHS tablet 05/22/18 05/22/18 05/21/18 Rx 7.5mg Active Meds: Active Medications Divalproex Sodium (Depakote Er) 500 mg PO BID [facility] Last Admin: 05/22/18 21:33 Dose: 500 mg Documented by: Olanzapine (Zyprexa) 5 mg PO QHS [facility] Last Admin: 05/22/18 21:32 Dose: 5 mg Documented by: Review of Systems Constitutional: no weight loss, no weight gain, no fever Ears, nose, mouth and throat: no ear pain, no tinnitis, no nose pain Cardiovascular: no chest pain, no palpitations, no edema, no lightheadedness Respiratory: no cough, no excessive sputum, no dyspnea on exertion Gastrointestinal: no nausea, no diarrhea, no change in bowel habits Genitourinary Male: no hematuria, no urinary frequency, no urinary hesitancy Rectal: no incontinence, no hemorrhoids Musculoskeletal: no neck stiffness, no shooting arm pain Integumentary: no rash, no redness, no wounds Neurological: no transient paralysis, no weakness, no numbness Psychiatric: change in sleep habits, sleep disturbances, no change in appetite, no suicidal ideation Endocrine: no cold intolerance, no polyphagia, no polydipsia Hematologic/Lymphatic: no easy bruising, no lymphedema Allergic/Immunologic: no urticaria Exam - Constitutional Vitals: Temp Pulse Resp BP Pulse Ox 97.6 F 82 18 127/72 99 05/22/18 17:56 05/22/18 17:56 05/22/18 17:56 05/22/18 17:56 05/22/18 17:56 General appearance: Present: no acute distress, well-nourished - EENT Eyes: Present: PERRL ENT: hearing intact, clear oral mucosa - Neck Neck: Present: supple, normal ROM - Respiratory Respiratory effort: normal Respiratory: bilateral: CTA - Cardiovascular Heart Sounds: Present: S1 & S2. Absent: rub, click - Extremities Extremities: pulses symmetrical Extremity abnormal: edema Peripheral Pulses: within normal limits - Abdominal General gastrointestinal: Present: soft, non-tender, non-distended, normal bowel sounds Male genitourinary: Present: normal - Integumentary Integumentary: Present: clear, warm, dry - Musculoskeletal Musculoskeletal: gait normal, strength equal bilaterally - Psychiatric Psychiatric: appropriate mood/affect, intact judgment & insight - Neurologic Neurologic: CNII-XII intact, moves all extremities Assessment and Plan - Patient Problems (1) CHF (congestive heart failure) Current Visit: No Status: Acute Qualifiers: Heart failure chronicity: chronic Plan to address problem: No CHF Decompensation at this time. continue diuresis with lasix, strict I/O, daily weight, monitor uop q shift, afterload reduction. (2) HTN (hypertension) Current Visit: Yes Status: Acute Qualifiers: Hypertension type: essential hypertension Qualified Code(s): I10 - Essential (primary) hypertension Plan to address problem: Monitor BP q shift, continue current antihypertensive therapy, continue medical management. (3) CAD (coronary artery disease) Current Visit: Yes Status: Acute Qualifiers: Associated angina: without angina Plan to address problem: Low cholesterol diet, risk factor reduction, statin therapy (4) Atrial fibrillation with RVR Current Visit: No Status: Acute Plan to address problem: Continue therapeutic anticoagulation, continue rate control.
[2018-05-23] MEDS ORDERED: ACETAMINOPHEN 650 MG PO SCH (07:00)
[2018-05-23] MEDS ORDERED: DIVALPROEX SODIUM PO SCH (08:00)
[2018-05-23] MEDS: TYLENOL PO SCH ×3 (09:08→21:44)
[2018-05-23] MEDS: COZAAR PO SCH (09:10)
[2018-05-23] MEDS: LOPRESSOR PO SCH ×3 (09:10→20:20)
[2018-05-23] MEDS: XARELTO PO SCH (09:11)
[2018-05-23] MEDS: FLOMAX PO SCH (09:11)
[2018-05-23] MEDS: LASIX PO SCH ×2 (09:12→21:44)
--- NOTE | 2018-05-23 12:41 | History and Physical Report ---
GP History & Physical - History of Present Illness Date of admission: 05/22/18 Date of Examination: 05/23/18 Reason for Admission: Danger to self, Impaired reality testing, Unable to care for self Chief Complaint: I have no complaint History of Present Illness: The patient is a 72 YO , disabled Male with HTN, Atrial fib, CHF, CVA, Bipolar Disorder, Thoracic Aneurysm who is admitted to Geriatric Psychiatry unit via the ED. He presents with bizarre behaviors, he is hyperactive, delusional, hypersexual and disruptive. In my interview with the patient, he reports being diagnosed with Bipolar in the 80s for which he takes Depakote and Geodon. He endorses auditory hallucinations, stating that God talks directly to him; he has grandiose delusions. He is loud, difficult to redirect and agitated. He denies being paranoid, suicidal or homicidal. He reports being compliant with his medications and denies side effects. He denies abusing substances. Legal Status: Voluntary Patient Problems: Current Active Problems Bipolar I disorder with eugenia (Acute) CAD (coronary artery disease) (Acute) HTN (hypertension) (Acute) Reaction to Hospitalization: Accepting Substance History - Substance History Drug Use: none Hx Tobacco Use: No Alcohol Use: No Past psychiatric history - Past Medical History Past Medical History: atrial fib, CAD, hypertension, stroke Past Surgical History: tonsillectomy - past Psychiatric treatment and history Psych: Bipolar psychiatric treatment history: Patient reports 2 previous inpatient treatments. No suicide attempts He follows with his psychiatrist in the out-patient - Social History Social history: , Lives alone, smoking, alcohol abuse Review of Systems All systems: negative Psychiatric: insomnia Results - Results Labs/Vitals: Laboratory Last Values Valproic Acid 15.0 ug/mL (50-100) L 05/23/18 07:46 Last Vital Signs Temp 97.9 F 05/23/18 07:39 Pulse 71 05/23/18 09:10 Resp 18 05/23/18 07:39 BP 137/68 05/23/18 09:10 Pulse Ox 99 05/23/18 07:39 Physical Examination - Constitutional Vitals: Vital Signs Temp Pulse Resp BP Pulse Ox 97.9 F 71 18 137/68 99 05/23/18 07:39 05/23/18 09:10 05/23/18 07:39 05/23/18 09:10 05/23/18 07:39 Temperature -Last 24 Hours Temperature 97.9 F Temperature 97.6 F General appearance: Present: no acute distress, disheveled - EENT ENT: hearing intact Mental Status Exam - Vital signs Last Vital Signs Temp 97.9 F 05/23/18 07:39 Pulse 71 05/23/18 09:10 Resp 18 05/23/18 07:39 BP 137/68 05/23/18 09:10 Pulse Ox 99 05/23/18 07:39 - Exam Orientation: time, place, person Affect: agitated Mood: congruent with affect Thought content: delusions Thought Process: Flight of Ideas Perceptions: hallucinations Speech: pressured Concentration: distractible Motor activity: restless Level of consciousness: alert Memory: Intact Sleep Symptoms: Difficulty Falling Asleep Appetite: increased Interaction: hostile, irritable Assessment and Plan - Psychiatric problem (1) Bipolar I disorder with eugenia Current Visit: Yes Status: Acute plan to address problem: Patient will be admitted for inpatient psychiatric evaluation, medication adjustment and close monitoring The patient's behavior, mood, sleep and appetite will be closely monitored. Patient will be enrolled in individual and group therapeutic sessions and encouraged to attend. Patient will be provided with a safe and structured environment. Patient's physical health needs will be addressed by the Hospitalist. Social Assessment will be completed and the Warehouse Operations Associate will work with patient and family to ensure a suitable and safe disposition Medication adjustment will be made as clinically indicated The patient agreed on the treatment plan, understood the risk, benefit, alternative treatment, potential consequence of no treatment, and gave informed consent. Physician Certification - Certification Statement Physician Certification Statement: This is an acknowledgement statement that YAMINI KOENIG is a 72 year old M who requires inpatient psychiatric admission for treatment which could reasonably be expected to improve the patient's condition for Bipolar disorder Estimated period of time patient will need to remain in the hospital: 7 days Plan for post-hospital care: Out-patient treatment
[2018-05-23] MEDS: LANOXIN PO SCH ×2 (16:58→17:10)
[2018-05-23] MEDS: REMERON PO SCH (21:39)
[2018-05-24] MEDS: TYLENOL PO SCH (06:08)
[2018-05-24] MEDS: LASIX PO SCH ×2 (09:09→21:22)
[2018-05-24] MEDS: LOPRESSOR PO SCH ×3 (09:09→20:19)
[2018-05-24] MEDS: FLOMAX PO SCH (09:10)
[2018-05-24] MEDS: COZAAR PO SCH (09:12)
[2018-05-24] MEDS: XARELTO PO SCH (09:13)
--- NOTE | 2018-05-24 09:55 | Progress Note ---
Subjective Date of service: 05/24/18 Principal diagnosis: Bipolar disorder Subjective Comment: The is hyperactive and delusional this morning. He slept only 2 to 3 hours last night. He is loud, disruptive and threatens staffs. He is difficult to redirect. Security staffs called to the unit to help control patient's behavior. Patient is hyper-sexual, repeatedly makes inappropriate sexual remarks. He states that he is engaged to the TIRE BLADDER MAKER of the hospital, Rhina Barbosa. He claims that the TIRE BLADDER MAKER told him she wanted 5 children with him. He refuses to take Laxis. He denies suicidal or homicidal thoughts. He denies hallucinations. No medication side effects reported or observed. Objective - Criteria for Continued Treatment Criteria for Continued Treatment: Improving Level of Functioning, Understanding Diagnosis and need for Medication, Improving Treatment / Medication Compliance, Confronting Denial of Illness, Stablizing Level of Functioning, Improving Emotional/Socia - Mental Status Mental Status: Oriented x 3 - Objective Observation Participation Level: Moderate Assessment and Plan - Patient Problems (1) Bipolar I disorder with eugenia Current Visit: Yes Status: Acute Plan to address problem: Will continue inpatient psychiatric treatment for medication adjustment and close monitoring The patient's behavior, mood, sleep and appetite will be closely monitored. Patient will be enrolled in individual and group therapeutic sessions and encouraged to attend. Patient will be provided with a safe and structured environment. Patient's physical health needs will be addressed by the Hospitalist. Social Assessment will be completed and the Service Order Taker will work with patient and family to ensure a suitable and safe disposition Medication adjustment will be made as clinically indicated The patient agreed on the treatment plan, understood the risk, benefit, alternative treatment, potential consequence of no treatment, and gave informed consent.
[2018-05-24] MEDS ORDERED: ATIVAN IM PRN (10:04)
[2018-05-24] MEDS: LANOXIN PO SCH (16:55)
[2018-05-24] MEDS: REMERON PO SCH (21:20)
[2018-05-25] MEDS: LOPRESSOR PO SCH ×3 (08:41→20:21)
[2018-05-25] MEDS: COZAAR PO SCH (09:15)
[2018-05-25] MEDS: XARELTO PO SCH (09:16)
[2018-05-25] MEDS: FLOMAX PO SCH (09:17)
[2018-05-25] MEDS: LASIX PO SCH ×2 (09:20→21:21)
--- NOTE | 2018-05-25 10:25 | Progress Note ---
Subjective Date of service: 05/25/18 Principal diagnosis: Bipolar disorder Subjective Comment: The patient is hyperactive and delusional this morning. He is loud, disruptive and threatens staffs. He was aggressive last night and required to be nursed in seclusion room. He denies hallucinations. No medication side effects reported or observed. Objective - Criteria for Continued Treatment Criteria for Continued Treatment: Improving Level of Functioning, Understanding Diagnosis and need for Medication, Improving Treatment / Medication Compliance, Confronting Denial of Illness, Stablizing Level of Functioning, Improving Emot ional/Socia - Mental Status Mental Status: Oriented x 3 - Objective Observation Participation Level: Moderate Assessment and Plan - Patient Problems (1) Bipolar I disorder with eugenia Current Visit: Yes Status: Acute Plan to address problem: Will continue inpatient psychiatric treatment for medication adjustment and close monitoring The patient's behavior, mood, sleep and appetite will be closely monitored. Patient will be enrolled in individual and group therapeutic sessions and encouraged to attend. Patient will be provided with a safe and structured environment. Patient's physical health needs will be addressed by the Hospitalist. Social Assessment will be completed and the Aluminum Fabrication Supervisor will work with patient and family to ensure a suitable and safe disposition Medication adjustment will be made as clinically indicated The patient agreed on the treatment plan, understood the risk, benefit, alternative treatment, potential consequence of no treatment, and gave informed consent.
[2018-05-25] MEDS: LANOXIN PO SCH (17:57)
[2018-05-25] MEDS: REMERON PO SCH (21:08)
[2018-05-26] MEDS ORDERED: ATIVAN PO ONE (00:12)
[2018-05-26] MEDS: LOPRESSOR PO SCH ×3 (07:50→21:48)
[2018-05-26] MEDS: LASIX PO SCH ×2 (09:48→21:47)
[2018-05-26] MEDS: XARELTO PO SCH (09:48)
[2018-05-26] MEDS: COZAAR PO SCH (09:48)
[2018-05-26] MEDS: FLOMAX PO SCH (09:49)
--- NOTE | 2018-05-26 09:49 | Progress Note ---
Subjective Date of service: 05/26/18 Principal diagnosis: Bipolar disorder Subjective Comment: The patient is hyperactive and delusional this morning. He is grandiose; states that he is waiting for the NUT GRINDER to ask him out. He is loud, disruptive and threatens staffs. He is agitated, attempting to forcibly grab items on the table at the the Nursing station. He denies suicidal or homicidal thoughts. He denies hallucinations. No medication side effects reported or observed. Objective - Criteria for Continued Treatment Criteria for Continued Treatment: Improving Level of Functioning, Understanding Diagnosis and need for Medication, Improving Treatment / Medication Compliance, Confronting Denial of Illness, Stablizing Level of Functioning, Improving Emotional/Socia - Mental Status Mental Status: Oriented x 3 - Objective Observation Participation Level: Minimal Assessment and Plan - Patient Problems (1) Bipolar I disorder with haven Current Visit: Yes Status: Acute Plan to address problem: Will continue inpatient psychiatric treatment for medication adjustment and close monitoring The patient's behavior, mood, sleep and appetite will be closely monitored. Patient will be enrolled in individual and group therapeutic sessions and encouraged to attend. Patient will be provided with a safe and structured environment. Patient's physical health needs will be addressed by the Hospitalist. Social Assessment will be completed and the Senior Core Java Developer will work with patient and family to ensure a suitable and safe disposition Medication adjustment will be made as clinically indicated Will add Clonazepam 0.25mg bid for [place] The patient agreed on the treatment plan, understood the risk, benefit, alternative treatment, potential consequence of no treatment, and gave informed consent.
[2018-05-26] MEDS: ATIVAN IM PRN ×2 (10:29→19:20)
[2018-05-26] MEDS: LANOXIN PO SCH (18:00)
[2018-05-26] MEDS: REMERON PO SCH (21:46)
[2018-05-27] MEDS: LOPRESSOR PO SCH ×3 (08:42→21:29)
--- NOTE | 2018-05-27 09:39 | Progress Note ---
Subjective Date of service: 05/27/18 Principal diagnosis: Bipolar disorder Subjective Comment: The patient continues to be demanding, disruptive, threatening and aggressive. He is alert, fully oriented and in touch with reality. He denies suicidal or homicidal thoughts. He denies hallucinations. No medication side effects reported or observed. Objective - Criteria for Continued Treatment Criteria for Continued Treatment: Improving Level of Functioning, Stablizing Level of Functioning, Improving Emotional/Socia - Mental Status Mental Status: Oriented x 3 - Objective Observation Participation Level: Moderate Assessment and Plan - Patient Problems (1) Bipolar I disorder with eugenia Current Visit: Yes Status: Acute Plan to address problem: Will continue inpatient psychiatric treatment for medication adjustment and close monitoring The patient's behavior, mood, sleep and appetite will be closely monitored. Patient will be enrolled in individual and group therapeutic sessions and encouraged to attend. Patient will be provided with a safe and structured environment. Patient's physical health needs will be addressed by the Hospitalist. Social Assessment will be completed and the Agricultural Equipment Salesperson will work with patient and family to ensure a suitable and safe disposition Medication adjustment will be made as clinically indicated The patient agreed on the treatment plan, understood the risk, benefit, al ternative treatment, potential consequence of no treatment, and gave informed consent.
[2018-05-27] MEDS: FLOMAX PO SCH (09:51)
[2018-05-27] MEDS: XARELTO PO SCH (09:51)
[2018-05-27] MEDS: COZAAR PO SCH (09:52)
[2018-05-27] MEDS: LASIX PO SCH ×2 (09:55→21:27)
[2018-05-27] MEDS: LANOXIN PO SCH (17:46)
[2018-05-27] MEDS: HALDOL IM PRN (18:25)
[2018-05-27] MEDS: REMERON PO SCH (21:27)
[2018-05-28] MEDS: LOPRESSOR PO SCH ×3 (08:35→20:15)
[2018-05-28] MEDS: LASIX PO SCH ×2 (09:39→21:23)
[2018-05-28] MEDS: FLOMAX PO SCH (09:39)
[2018-05-28] MEDS: XARELTO PO SCH (09:43)
[2018-05-28] MEDS: COZAAR PO SCH (09:44)
[2018-05-28] MEDS: ATIVAN IM PRN (19:16)
[2018-05-28] MEDS: LANOXIN PO SCH (19:48)
--- NOTE | 2018-05-28 21:01 | Progress Note ---
Subjective Date of service: 05/28/18 Principal diagnosis: Bipolar disorder Subjective Comment: The is alert, fully oriented and able to engage in long meaningful conversations. He is insightful and has good judgment but chooses to curse and threaten staffs. He is physically aggressive, attempts to throw objects off the Nursing Station. In my professional opinion, large component of patient's current behavior is a behavioral which seems to have been longstanding. He denies suicidal or homicidal thoughts. He denies hallucinations. No medication side effects reported or observed. Objective - Criteria for Continued Treatment Criteria for Continued Treatment: Improving Level of Functioning, Improving Emotional/Socia - Mental Status Mental Status: Alert - Objective Observation Participation Level: Moderate Assessment and Plan - Patient Problems (1) Bipolar I disorder with eugenia Current Visit: Yes Status: Acute Plan to address problem: Will continue inpatient psychiatric treatment for medication adjustment and close monitoring The patient's behavior, mood, sleep and appetite will be closely monitored. Patient will be enrolled in individual and group therapeutic sessions and encouraged to attend. Patient will be provided with a safe and structured environment. Patient's physical health needs will be addressed by the Hospitalist. Social Assessment will be completed and the Title Supervisor will work with patient and family to ensure a suitable and safe disposition Medication adjustment will be made as clinically indicated The patient agreed on the treatment plan, understood the risk, benefit, alt ernative treatment, potential consequence of no treatment, and gave informed consent.
[2018-05-28] MEDS: REMERON PO SCH (21:24)
[2018-05-29] MEDS: HALDOL IM PRN (04:10)
--- NOTE | 2018-05-29 07:26 | Progress Note ---
Subjective Date of service: 05/29/18 Principal diagnosis: Bipolar disorder Subjective Comment: The received multiple PRN medications for agitation last night. He is calm, alert, fully oriented and able to engage in long meaningful conversation this morning. He completely denies suicidal or homicidal thoughts. He denies hallucinations, paranoia and no delusional statement this morning. He is insightful, accepts his medications and denies side effects. Objective - Criteria for Continued Treatment Criteria for Continued Treatment: Improving Emotional/Socia - Mental Status Mental Status: Oriented x 3 - Objective Observation Participation Level: Minimal Assessment and Plan - Patient Problems (1) Bipolar I disorder with eugenia Current Visit: Yes Status: Acute Plan to address problem: Will continue inpatient psychiatric treatment for medication adjustment and close monitoring The patient's behavior, mood, sleep and appetite will be closely monitored. Patient will be enrolled in individual and group therapeutic sessions and encouraged to attend. Patient will be provided with a safe and structured environment. Patient's physical health needs will be addressed by the Hospitalist. Social Assessment will be completed and the School Superintendent will work with patient and family to ensure a suitable and safe disposition Medication adjustment will be made as clinically indicated The patient agreed on the treatment plan, understood the risk, benefit, alternative treatment, potential consequence of no treatment, and gave informed consent.
[2018-05-29] MEDS: FLOMAX PO SCH (09:24)
[2018-05-29] MEDS: XARELTO PO SCH (09:24)
[2018-05-29] MEDS: LASIX PO SCH ×2 (09:24→22:39)
[2018-05-29] MEDS: COZAAR PO SCH (09:24)
[2018-05-29] MEDS: LOPRESSOR PO SCH ×3 (09:25→20:35)
[2018-05-29] MEDS: LANOXIN PO SCH (17:09)
[2018-05-29] MEDS: REMERON PO SCH (22:39)
--- NOTE | 2018-05-30 08:15 | Discharge Summary ---
Providers - Providers Date of Admission: 05/22/18 15:35 Date of discharge: 05/30/18 Attending physician: PITA MILLAN MD 05/22/18 14:05 Consult to Physician [CONS] Routine Comment: Consulting Provider: JENNIFER EPPS Physician Instructions: Reason For Exam: medical Primary care physician: [facility], [place] Hospitalization Reason for admission: bizarre behaviors, hyperactive, delusional, hypersexual and disruptive Admitting Diagnosis: F31.2 - BIPOLAR DISORD, CRNT EPISODE MANIC SEVERE W PSYCH FEATURES Condition: Good Hospital course: The patient was provided inpatient psychiatric treatment with safe and supportive environment, group therapy, individual counseling, psychiatric medication, medication adjustment, adverse effect monitor, medical evaluation, medical treatment, social service assessment, social support meeting, placement assessment and psycho-education. The patients mood, anxiety, thoughts, stress management skill, cognition, impulse/anger control, motivation, understanding of disease, compliance to treatment and appreciation on family/social support are improved and stabilized. At the time of discharge, the patient had no suicidal ideas, no homicidal ideas, no aggressive thoughts, no endangering behavior and no debilitating adverse effects. The patient agreed on the treatment plan, understood the risk, benefit, alternative treatment, potential consequence of no treatment, and gave informed consent. The patient was advised to be compliant with medications, not to use drugs and not to drink alcohol. The patient understands that if suicidal ideas, homicidal ideas, or any endangering thoughts arise, the patient should immediately seek for emergent assistance including but not limited to crisis hot line and emergency room. Follow up with out-patient Psychiatrist and PCP within 14 - 21 days of discharge. Disposition: - TO HOME OR SELFCARE Time spent for discharge: 36 minutes Allergies/Adverse Reactions: Allergies shellfish derived Allergy (Verified 05/12/18 14:53) Itching Vital Signs: Last Vital Signs Temp 98.0 F 05/29/18 06:07 Pulse 78 05/30/18 00:58 Resp 16 05/29/18 22:34 BP 132/63 05/30/18 00:58 Pulse Ox 100 05/29/18 06:07 Last Lab: Laboratory Last Values Valproic Acid 15.0 ug/mL (50-100) L 05/23/18 07:46 - Discharge Diagnoses (1) Bipolar I disorder with eugenia Status: Acute Core Measure Documentation - Palliative Care Palliative Care/ Comfort Measures: Not Applicable - Core Measures Any of the following diagnoses?: none - VTE Discharge Requirements Deep Vein Thrombosis/Pulmonary Embolism Present on Admission: No Has pt received <5 days of overlap therapy or INR<2.0: No Anticoagulant overlap therapy prescribed at discharge: No Contraindication No Overlap Therapy order at DC: Not Indicated Exam - Constitutional Vitals: Temp Pulse Resp BP Pulse Ox 98.0 F 78 16 132/63 100 05/29/18 06:07 05/30/18 00:58 05/29/18 22:34 05/30/18 00:58 05/29/18 06:07 General appearance: Present: no acute distress, well-nourished - EENT Eyes: Present: PERRL ENT: hearing intact - Neck Neck: Present: supple - Respiratory Respiratory effort: normal - Integumentary Integumentary: Present: clear, warm, dry - Psychiatric Psychiatric: appropriate mood/affect, intact judgment & insight, memory intact, cooperative Plan Activity: fall precautions Weight Bearing Status: Weight Bear as Tolerated Diet: regular [facility] ESTRELLITA [Primary Care Provider] - 7 Days Prescriptions: AtorvaSTATin [Lipitor] 20 mg PO QHS #30 tablet Mirtazapine [Remeron] 7.5 mg PO QHS #14 tablet Losartan [Cozaar] 25 mg PO QDAY #30 tablet Divalproex ER [Depakote ER] 500 mg PO BID #60 tablet Tamsulosin [Flomax] 0.4 mg PO DAILY #30 capsule clonazePAM [KlonoPIN] 0.25 mg PO TID #30 tablet Digoxin [Lanoxin] 0.25 mg PO DAILY@1700 #30 tablet Furosemide [Lasix TAB] 40 mg PO BID #30 tablet Metoprolol [Lopressor TAB] 50 mg PO TID #180 tablet Rivaroxaban [Xarelto] 20 mg PO QDAY #30 tablet OLANzapine [ZyPREXA] 5 mg PO BID #60 tablet
[2018-05-30] MEDS: LASIX PO SCH (10:06)
[2018-05-30] MEDS: COZAAR PO SCH (10:06)
[2018-05-30] MEDS: FLOMAX PO SCH (10:06)
[2018-05-30] MEDS: LOPRESSOR PO SCH ×2 (10:07→14:16)
[2018-05-30] MEDS: XARELTO PO SCH (10:08)
[2018-05-30 14:16] VITALS: BP 114/63
== END 2018-05-30 15:05 | disposition home or self-care (01) | DRG 885 ==
LOC: UNDOADMIN 13:09 → 3A 13:09 → 5A 15:35
PROVIDERS: ADMIT Psychiatry & Neurology Psychiatry; ATTEND Psychiatry & Neurology Psychiatry
DX: F31.2 Bipolar disorder, current episode manic severe with psychotic features (principal); I48.91 Unspecified atrial fibrillation; I25.10 Atherosclerotic heart disease of native coronary artery without angina pectoris; F31.9 Bipolar disorder, unspecified; Z60.2 Problems related to living alone; I10 Essential (primary) hypertension; Z86.73 Personal history of transient ischemic attack (TIA), and cerebral infarction without residual deficits; Z83.3 Family history of diabetes mellitus; Z82.49 Family history of ischemic heart disease and other diseases of the circulatory system; Z90.89 Acquired absence of other organs; Z91.013 Allergy to seafood
CPT/HCPCS: 36415; 80164; G0378; A9270-GY; J1630; J2060

== ENCOUNTER 2018-05-30 20:48 | Emergency (ER) | payer MEDICARE ==
--- NOTE | 2018-05-30 21:47 | Emergency Department Report ---
Blank Doc - Documentation Documentation: This is a 72-year-old male that presents with bilateral leg pain and swelling. HX of CHF. This initial assessment/diagnostic orders/clinical plan/treatment(s) is/are subject to change based on patient's health status, clinical progression and re- assessment by fellow clinical providers in the ED. Further treatment and workup at subsequent clinical providers discretion. Patient/guardians urged not to elope from the ED as their condition may be serious if not clinically assessed and managed. Initial orders include: 1- Patient sent to MAIN ED for further evaluation and treatment 2- labs 3- EKG
[2018-05-30 22:48] LABS: Basophils % (Auto) 0.6 % (0.0-1.8); Eosinophils # (Auto) 0.1 K/mm3 (0.0-0.4); Eosinophils % (Auto) 2.4 % (0.0-4.3); Hematocrit 32.4 % (35.5-45.6); Hemoglobin 10.3 gm/dl (11.8-15.2); Lymphocytes # (Auto) 1.2 K/mm3 (1.2-5.4); Lymphocytes % (Auto) 21.2 % (13.4-35.0); Mean Corpuscular HGB Conc 32 % (32-34); Mean Corpuscular Volume 74 fl (84-94); Monocytes # (Auto) 0.5 K/mm3 (0.0-0.8); Monocytes % (Auto) 9.3 % (0.0-7.3); Platelet Count 183 K/mm3 (140-440); Red Blood Count 4.41 M/mm3 (3.65-5.03); Red Cell Distribution Width 16.5 % (13.2-15.2)
[2018-05-30 22:58] LABS: INR 1.89 (0.87-1.13)
[2018-05-30 22:59] LABS: Partial Thromboplastin Time 38.5 Sec. (24.2-36.6)
--- NOTE | 2018-05-30 23:10 | XRay Report ---
PROCEDURE: XR CHEST ROUTINE 2V TECHNIQUE: PA and lateral chest radiographs were obtained. HISTORY: Chest Pain COMPARISONS: None. FINDINGS: Heart: Mild to moderate degree cardiomegaly is noted.. Mediastinum/Vessels: Normal. Lungs/Pleural space: Bilateral lungs are hyperinflated. There are no confluent infiltrates or mass l esions. Pleural spaces are clear.. Bony thorax: No acute osseous abnormality. IMPRESSION: COPD No acute pulmonary process Mild cardiomegaly. This document is electronically signed by Nahun Garcia MD., May 30 2018 11:08:26 PM ET
[2018-05-30 23:12] LABS: BUN/Creatinine Ratio 18; Blood Urea Nitrogen 29 mg/dL (9-20); Calcium 10.1 mg/dL (8.4-10.2); Hemolysis Index 3
--- NOTE | 2018-05-31 00:25 | Emergency Department Report ---
ED Extremity Problem HPI - General Chief complaint: Extremity Problem,Nontraumatic Stated complaint: LEG/FEET PAIN Time Seen by Provider: 05/30/18 21:45 Source: patient Mode of arrival: Wheelchair Limitations: No Limitations - History of Present Illness Initial comments: 72-year-old with history of CHF and chronic lower extremity edema and pain. Patient presents today with complaint of lower lower extremity swelling and pain. Patient has had multiple hospital visits for same. Denies shortness of breath. MD Complaint: extremity pain, extremity swelling -: unknown Location: bilateral lower extremity History of Same: Yes -: No fever, No associated dyspnea, No associated chest pain Severity scale (0 -10): 9 Consistency: constant Improves with: nothing Worsens with: nothing Associated Symptoms: denies: chest pain, shortness of breath - Related Data Home Medications Medication Instructions Recorded Confirmed Last Taken Aspirin [Aspirin BABY CHEW TAB] 81 mg PO QDAY 05/31/18 05/31/18 05/30/18 Previous Rx's Medication Instructions Recorded Last Taken Type Digoxin [Lanoxin] 0.25 mg PO DAILY@1700 #30 tablet 05/30/18 05/30/18 Rx Divalproex ER [Depakote ER] 500 mg PO BID #60 tablet 05/30/18 05/30/18 Rx Furosemide [Lasix TAB] 40 mg PO BID #30 tablet 05/30/18 05/30/18 Rx Losartan [Cozaar] 25 mg PO QDAY #30 tablet 05/30/18 05/30/18 Rx Metoprolol [Lopressor TAB] 50 mg PO TID #180 tablet 05/30/18 05/30/18 Rx Mirtazapine [Remeron] 7.5 mg PO QHS #14 tablet 05/30/18 05/30/18 Rx OLANzapine [ZyPREXA] 5 mg PO BID #60 tablet 05/30/18 05/30/18 Rx Rivaroxaban [Xarelto] 20 mg PO QDAY #30 tablet 05/30/18 05/30/18 Rx Tamsulosin [Flomax] 0.4 mg PO DAILY #30 capsule 05/30/18 05/30/18 Rx clonazePAM [KlonoPIN] 0.25 mg PO TID #30 tablet 05/30/18 05/30/18 Rx Aspirin [Aspirin BABY CHEW TAB] 81 mg PO QDAY #30 tab.chew 05/31/18 Unknown Rx Furosemide [Lasix TAB] 40 mg PO BID #60 tablet 05/31/18 Unknown Rx Allergies Allergy/AdvReac Type Severity Reaction Status Date / Time shellfish derived Allergy Itching Verified 05/31/18 07:50 ED Review of Systems ROS: Stated complaint: LEG/FEET PAIN Other details as noted in HPI Comment: All other systems reviewed and negative Constitutional: denies: chills, fever Respiratory: denies: shortness of breath Cardiovascular: denies: chest pain Musculoskeletal: as per HPI ED Past Medical Hx - Past Medical History Previous Medical History?: Yes Hx Hypertension: Yes Hx CVA: Yes (2012) Hx Heart Attack/AMI: Yes Hx Congestive Heart Failure: Yes Hx Deep Vein Thrombosis: No Hx Liver Disease: Yes Hx Renal Disease: No Hx Arthritis: No Hx Seizures: No Hx Psychiatric Treatment: Yes (Bipolar,) Hx Asthma: No Hx Tuberculosis: No Hx Dementia: No Hx HIV: No Additional medical history: Afib, - Surgical History Past Surgical History?: Yes Hx Coronary Stent: Yes (x2) Hx Open Heart Surgery: No Hx Pacemaker: No Hx Internal Defibrillator: No Hx Cholecystectomy: Yes Hx Appendectomy: No Additional Surgical History: Cardiac stents, - Social History Smoking Status: Never Smoker Substance Use Type: None - Medications Home Medications: Home Medications Medication Instructions Recorded Confirmed Last Taken Type Digoxin [Lanoxin] 0.25 mg PO DAILY@1700 #30 tablet 05/30/18 05/31/18 05/30/18 Rx Divalproex ER [Depakote ER] 500 mg PO BID #60 tablet 05/30/18 05/31/18 05/30/18 Rx Furosemide [Lasix TAB] 40 mg PO BID #30 tablet 05/30/18 05/31/18 05/30/18 Rx Losartan [Cozaar] 25 mg PO QDAY #30 tablet 05/30/18 05/31/18 05/30/18 Rx Metoprolol [Lopressor TAB] 50 mg PO TID #180 tablet 05/30/18 05/31/18 05/30/18 Rx Mirtazapine [Remeron] 7.5 mg PO QHS #14 tablet 05/30/18 05/31/18 05/30/18 Rx OLANzapine [ZyPREXA] 5 mg PO BID #60 tablet 04/12/0805/31/18 05/30/18 Rx Rivaroxaban [Xarelto] 20 mg PO QDAY #30 tablet 05/30/18 05/31/18 05/30/18 Rx Tamsulosin [Flomax] 0.4 mg PO DAILY #30 capsule 05/30/18 05/31/18 05/30/18 Rx clonazePAM [KlonoPIN] 0.25 mg PO TID #30 tablet 05/30/18 05/31/18 05/30/18 Rx Aspirin [Aspirin BABY CHEW TAB] 81 mg PO QDAY 05/31/18 05/31/18 05/30/18 History Aspirin [Aspirin BABY CHEW TAB] 81 mg PO QDAY #30 tab.chew 05/31/18 Unknown Rx Furosemide [Lasix TAB] 40 mg PO BID #60 tablet 05/31/18 Unknown Rx ED Physical Exam - General Limitations: No Limitations General appearance: alert, in no apparent distress, other (patient asleep on stretcher.) - Head Head exam: Present: atraumatic, normocephalic - Eye Eye exam: Present: normal appearance - ENT ENT exam: Present: mucous membranes moist - Neck Neck exam: Present: normal inspection - Respiratory Respiratory exam: Present: normal lung sounds bilaterally. Absent: respiratory distress - Cardiovascular Cardiovascular Exam: Present: regular rate, normal rhythm - GI/Abdominal GI/Abdominal exam: Present: soft. Absent: distended, tenderness - Extremities Exam Extremities exam: Present: other (2+ edema to bilateral lower extremities) - Neurological Exam Neurological exam: Present: alert, oriented X3 - Psychiatric Psychiatric exam: Present: normal affect, normal mood - Skin Skin exam: Present: warm, dry, intact, normal color ED Course Vital Signs 05/30/18 05/30/18 05/31/18 21:44 23:02 00:33 Temperature 99.4 F 98.7 F Pulse Rate 97 H 100 H 76 Respiratory 20 16 16 Rate Blood Pressure 128/50 Blood Pressure 134/63 137/70 [Left] O2 Sat by Pulse 100 99 96 Oximetry ED Medical Decision Making - Lab Data Result diagrams: 05/30/18 22:28 05/30/18 22:28 - EKG Data -: EKG Interpreted by Me EKG shows normal: axis, QRS complexes, ST-T waves Rate: normal - EKG Data When compared to previous EKG there are: no significant change (compared to 04/2018) Interpretation: LVH, other (Afib) - Radiology Data Radiology results: report reviewed, image reviewed - Medical Decision Making - chronic BLE pain and swelling - CXR negative for pulm edema - no resp distress, resp even and unlabored, O2 sats nml - recommend outpatient follow-up - return precautions given - Differential Diagnosis CHF Critical care attestation.: If time is entered above; I have spent that time in minutes in the direct care of this critically ill patient, excluding procedure time. ED Disposition Clinical Impression: Edema of both lower extremities Disposition: DC-01 TO HOME OR SELFCARE Is pt being admited?: No Condition: Stable Instructions: Leg Edema (ED) Referrals: PRIMARY CARE, [Referring] - 3-5 Days Time of Disposition: 00:25
[2018-05-31 00:34] VITALS: BP 137/70
== END 2018-05-31 01:23 | disposition home or self-care (01) ==
LOC: ED 20:48
DX: R60.9 Edema, unspecified (principal); M79.605 Pain in left leg; M79.604 Pain in right leg; I11.0 Hypertensive heart disease with heart failure; I50.9 Heart failure, unspecified; Z86.73 Personal history of transient ischemic attack (TIA), and cerebral infarction without residual deficits; Z95.1 Presence of aortocoronary bypass graft; Z90.49 Acquired absence of other specified parts of digestive tract; Z91.013 Allergy to seafood; Z79.82 Long term (current) use of aspirin
CPT/HCPCS: 36415; 71046; 80048; 83880; 84484; 85025; 85610; 85730; 93005; 93010; 99284

== ENCOUNTER 2018-05-31 05:39 | Emergency (ER) | payer MEDICARE ==
[2018-05-31 05:54] VITALS: BP 130/70
== END 2018-05-31 07:30 | disposition left against medical advice (07) ==
LOC: ED 05:39
DX: Z53.21 Procedure and treatment not carried out due to patient leaving prior to being seen by health care provider (principal)

== ENCOUNTER 2018-05-31 07:48 | Emergency (ER) | payer MEDICARE ==
[2018-05-31 07:59] VITALS: BP 120/83
--- NOTE | 2018-05-31 08:38 | Emergency Department Report ---
ED Recheck HPI - General Chief Complaint: Medical Clearance Stated Complaint: LEG AND FEET PAIN/LOST RX Time Seen by Provider: 05/31/18 08:16 Source: patient Mode of arrival: Ambulatory Limitations: No Limitations - History of Present Illness Initial Comments: This is a 72-year-old male nontoxic, well nourished in appearance, no acute signs of distress presents to the ED with medication refill. Patient stated that he lost his prescription for aspirin and Lasix. Patient stated that he takes Lasix 40 mg twice a day and baby aspirin daily. Patient apparently denies any symptoms. Denies any fever, chills, nausea, vomiting, chest pain, sense of breath, headache or stiff neck. MD Complaint: medication refill request Returns Today for: request for prescription Symptoms Since Prior Visit: no new symptoms Associated Symptoms: none. denies: fever, chills, chest pain, shortness of breath, rash, malaise, nasue[place], abdominal pain - Related Data Home Medications Medication Instructions Recorded Confirmed Last Taken Aspirin [Aspirin BABY CHEW TAB] 81 mg PO QDAY 05/31/18 05/31/18 05/30/18 Previous Rx's Medication Instructions Recorded Last Taken Type Digoxin [Lanoxin] 0.25 mg PO DAILY@1700 #30 tablet 05/30/18 05/30/18 Rx Divalproex ER [Depakote ER] 500 mg PO BID #60 tablet 05/30/18 05/30/18 Rx Furosemide [Lasix TAB] 40 mg PO BID #30 tablet 05/30/18 05/30/18 Rx Losartan [Cozaar] 25 mg PO QDAY #30 tablet 05/30/18 05/30/18 Rx Metoprolol [Lopressor TAB] 50 mg PO TID #180 tablet 05/30/18 05/30/18 Rx Mirtazapine [Remeron] 7.5 mg PO QHS #14 tablet 05/30/18 05/30/18 Rx OLANzapine [ZyPREXA] 5 mg PO BID #60 tablet 05/30/18 05/30/18 Rx Rivaroxaban [Xarelto] 20 mg PO QDAY #30 tablet 05/30/18 05/30/18 Rx Tamsulosin [Flomax] 0.4 mg PO DAILY #30 capsule 05/30/18 05/30/18 Rx clonazePAM [KlonoPIN] 0.25 mg PO TID #30 tablet 05/30/18 05/30/18 Rx Aspirin [Aspirin BABY CHEW TAB] 81 mg PO QDAY #30 tab.chew 05/31/18 Unknown Rx Furosemide [Lasix TAB] 40 mg PO BID #60 tablet 05/31/18 Unknown Rx Allergies Allergy/AdvReac Type Severity Reaction Status Date / Time shellfish derived Allergy Itching Verified 05/31/18 07:50 ED Review of Systems ROS: Stated complaint: LEG AND FEET PAIN/LOST RX Other details as noted in HPI Constitutional: denies: chills, fever Eyes: denies: eye pain, eye discharge, vision change ENT: denies: ear pain, throat pain Respiratory: denies: cough, shortness of breath, wheezing Cardiovascular: denies: chest pain, palpitations Endocrine: no symptoms reported Gastrointestinal: denies: abdominal pain, nausea, diarrhea Genitourinary: denies: urgency, dysuria Musculoskeletal: denies: back pain, joint swelling, arthralgia Skin: denies: rash, lesions Neurological: denies: headache, weakness, paresthesias Psychiatric: denies: anxiety, depression Hematological/Lymphatic: denies: easy bleeding, easy bruising ED Past Medical Hx - Past Medical History Previous Medical History?: Yes Hx Hypertension: Yes Hx CVA: Yes (2012) Hx Heart Attack/AMI: Yes Hx Congestive Heart Failure: Yes Hx Deep Vein Thrombosis: No Hx Liver Disease: Yes Hx Renal Disease: No Hx Arthritis: No Hx Seizures: No Hx Psychiatric Treatment: Yes (Bipolar,) Hx Asthma: No Hx Tuberculosis: No Hx Dementia: No Hx HIV: No Additional medical history: Afib, - Surgical History Past Surgical History?: Yes Hx Coronary Stent: Yes (x2) Hx Open Heart Surgery: No Hx Pacemaker: No Hx Internal Defibrillator: No Hx Cholecystectomy: Yes Hx Appendectomy: No Additional Surgical History: Cardiac stents, Stent in Rt. leg - Social History Smoking Status: Never Smoker Substance Use Type: None - Medications Home Medications: Home Medications Medication Instructions Recorded Confirmed Last Taken Type Digoxin [Lanoxin] 0.25 mg PO DAILY@1700 #30 tablet 05/30/18 05/31/18 05/30/18 Rx Divalproex ER [Depakote ER] 500 mg PO BID #60 tablet 05/30/18 05/31/18 05/30/18 Rx Furosemide [Lasix TAB] 40 mg PO BID #30 tablet 05/30/18 05/31/18 05/30/18 Rx Losartan [Cozaar] 25 mg PO QDAY #30 tablet 05/30/18 05/31/18 05/30/18 Rx Metoprolol [Lopressor TAB] 50 mg PO TID #180 tablet 05/30/18 05/31/18 05/30/18 Rx Mirtazapine [Remeron] 7.5 mg PO QHS #14 tablet 05/30/18 05/31/18 05/30/18 Rx OLANzapine [ZyPREXA] 5 mg PO BID #60 tablet 05/30/18 05/31/18 05/30/18 Rx Rivaroxaban [Xarelto] 20 mg PO QDAY #30 tablet 05/30/18 05/31/18 05/30/18 Rx Tamsulosin [Flomax] 0.4 mg PO DAILY #30 capsule 05/30/18 05/31/18 05/30/18 Rx clonazePAM [KlonoPIN] 0.25 mg PO TID #30 tablet 05/30/18 05/31/18 05/30/18 Rx Aspirin [Aspirin BABY CHEW TAB] 81 mg PO QDAY 05/31/18 05/31/18 05/30/18 History Aspirin [Aspirin BABY CHEW TAB] 81 mg PO QDAY #30 tab.chew 05/31/18 Unknown Rx Furosemide [Lasix TAB] 40 mg PO BID #60 tablet 05/31/18 Unknown Rx ED Physical Exam - General Limitations: No Limitations General appearance: alert, in no apparent distress - Head Head exam: Present: atraumatic, normocephalic - Eye Eye exam: Present: normal appearance - ENT ENT exam: Present: mucous membranes moist - Neck Neck exam: Present: normal inspection, full ROM. Absent: tenderness, meningismus, lymphadenopathy - Respiratory Respiratory exam: Present: normal lung sounds bilaterally. Absent: respiratory distress, wheezes, rales, rhonchi, stridor, chest wall tenderness, accessory muscle use, decreased breath sounds, prolonged expiratory - Cardiovascular Cardiovascular Exam: Present: regular rate. Absent: systolic murmur - Rectal Rectal exam: Present: deferred - Extremities Exam Extremities exam: Present: normal inspection, full ROM, normal capillary refill. Absent: tenderness, joint swelling, calf tenderness - Back Exam Back exam: Present: normal inspection, full ROM - Neurological Exam Neurological exam: Present: alert, oriented X3 - Psychiatric Psychiatric exam: Present: normal affect, normal mood - Skin Skin exam: Present: warm, dry, intact, normal color. Absent: rash ED Course Vital Signs 05/31/18 07:55 Temperature 98.7 F Pulse Rate 69 Respiratory 16 Rate Blood Pressure 120/83 O2 Sat by Pulse 100 Oximetry - Reevaluation(s) Reevaluation #1: 05/31/18 08:39 Patient is speaking in full sentences with no signs of distress noted. Critical care attestation.: If time is entered above; I have spent that time in minutes in the direct care of this critically ill patient, excluding procedure time. ED Disposition Clinical Impression: Medication refill Disposition: [id number] TO HOME OR SELFCARE Is pt being admited?: No Does the pt Need Aspirin: No Condition: Stable Additional Instructions: Follow-up with a primary care doctor in 3-5 days or if symptoms worsen and continue return to emergency room as soon as possible. Prescriptions: Aspirin [Aspirin BABY CHEW TAB] 81 mg PO QDAY #30 tab.chew Furosemide [Lasix TAB] 40 mg PO BID #60 tablet Referrals: HAO AVELAR MD [Primary Care Provider] - 3-5 Days PRIMARY CAREMD [Referring] - 3-5 Days ЕЛЕНА MCKEON MD [Staff Physician] - 3-5 Days [facility] [place] [Outside] - 3-5 Days Forms: Work/School Release Form(ED)
== END 2018-05-31 08:48 | disposition home or self-care (01) ==
LOC: ED 07:48
DX: I11.0 Hypertensive heart disease with heart failure (principal); I50.9 Heart failure, unspecified; Z76.0 Encounter for issue of repeat prescription; I25.2 Old myocardial infarction; Z95.1 Presence of aortocoronary bypass graft; Z90.49 Acquired absence of other specified parts of digestive tract; Z91.013 Allergy to seafood; Z79.82 Long term (current) use of aspirin
CPT/HCPCS: 99282

== ENCOUNTER 2018-06-01 15:22 | Emergency (ER) | payer MEDICARE ==
--- NOTE | 2018-06-01 16:39 | Emergency Department Report ---
Chief Complaint: Extremity Injury, Lower Stated Complaint: LEGS SWELLING Time Seen by Provider: 06/01/18 16:32 - HPI History of Present Illness: This is a 72 y.o. male that presents to ER with chronic BLE pain and edema. Patient states symptoms worse over the past month. He haven't been successful getting an appointment with a PCP. Also requesting refills on medication. States he received a refill for Lasix on yesterday visit. Denies SOB, palpitations, or chest pain. - Exam Vital Signs: Vital Signs 06/01/18 16:33 Temperature 98.4 F Pulse Rate 115 H Respiratory 16 Rate Blood Pressure 120/80 O2 Sat by Pulse 100 Oximetry MSE screening note: Focused history and physical exam performed. Due to findings the following was ordered: Labs ED Disposition for MSE Condition: Stable Referrals: HAO AVELAR MD [Primary Care Provider] - 3-5 Days
[2018-06-01 17:04] LABS: Hematocrit 32.2 % (35.5-45.6); Hemoglobin 10.3 gm/dl (11.8-15.2); Mean Corpuscular HGB Conc 32 % (32-34); Mean Corpuscular Volume 72 fl (84-94); Platelet Count 193 K/mm3 (140-440); Red Blood Count 4.46 M/mm3 (3.65-5.03); Red Cell Distribution Width 16.2 % (13.2-15.2)
[2018-06-01 17:08] LABS: INR 1.02 (0.87-1.13); Partial Thromboplastin Time 27.7 Sec. (24.2-36.6)
[2018-06-01 17:10] LABS: BUN/Creatinine Ratio 17; Blood Urea Nitrogen 22 mg/dL (9-20); Calcium 9.5 mg/dL (8.4-10.2); Hemolysis Index 0
[2018-06-01] MEDS ORDERED: LASIX PO ONE (17:50)
--- NOTE | 2018-06-01 17:52 | Emergency Department Report ---
ED General Adult HPI - General Chief complaint: Extremity Injury, Lower Stated complaint: LEGS SWELLING Time Seen by Provider: 06/01/18 16:32 Source: patient Mode of arrival: Ambulatory Limitations: No Limitations - History of Present Illness Initial comments: Pt is a 72 yo male who presents to the ED with c/o medication refill. The patient states he lost his refills that he was given on 05/30/18. He denies any CP, SOB, palpitations, N/V, cough, fever or any other sx. He has chronic BLE edema. He states he has an appointment with his PCP tomorrow (06/02/17). The patient states he has his lasix and aspirin, but none of the other prescriptions. - Related Data Home Medications Medication Instructions Recorded Confirmed Last Taken Aspirin [Aspirin BABY CHEW TAB] 81 mg PO QDAY 05/31/18 05/31/18 05/30/18 Previous Rx's Medication Instructions Recorded Last Taken Type Furosemide [Lasix TAB] 40 mg PO BID #30 tablet 05/30/18 05/30/18 Rx clonazePAM [KlonoPIN] 0.25 mg PO TID #30 tablet 05/30/18 05/30/18 Rx Furosemide [Lasix TAB] 40 mg PO BID #60 tablet 05/31/18 Unknown Rx Aspirin [Aspirin BABY CHEW TAB] 81 mg PO QDAY #30 tab.chew 06/01/18 Unknown Rx Digoxin [Lanoxin] 0.25 mg PO DAILY@1700 #30 tablet 06/01/18 Unknown Rx Divalproex ER [Depakote ER] 500 mg PO BID #60 tablet 06/01/18 Unknown Rx Losartan [Cozaar] 25 mg PO QDAY #30 tablet 06/01/18 Unknown Rx Metoprolol [Lopressor TAB] 50 mg PO TID #180 tablet 06/01/18 Unknown Rx Mirtazapine [Remeron] 7.5 mg PO QHS #14 tablet 06/01/18 Unknown Rx OLANzapine [ZyPREXA] 5 mg PO BID #60 tablet 06/01/18 Unknown Rx Rivaroxaban [Xarelto] 20 mg PO QDAY #30 tablet 06/01/18 Unknown Rx Tamsulosin [Flomax] 0.4 mg PO DAILY #30 capsule 06/01/18 Unknown Rx Allergies Allergy/AdvReac Type Severity Reaction Status Date / Time shellfish derived Allergy Itching Verified 06/01/18 15:23 ED Review of Systems ROS: Stated complaint: LEGS SWELLING Other details as noted in HPI Comment: All other systems reviewed and negative ED Past Medical Hx - Past Medical History Previous Medical History?: Yes Hx Hypertension: Yes Hx CVA: Yes (2011) Hx Heart Attack/AMI: Yes Hx Congestive Heart Failure: Yes Hx Deep Vein Thrombosis: No Hx Liver Disease: Yes Hx Renal Disease: No Hx Arthritis: No Hx Seizures: No Hx Psychiatric Treatment: Yes (Bipolar,) Hx Asthma: No Hx Tuberculosis: No Hx Dementia: No Hx HIV: No Additional medical history: Afib, - Surgical History Past Surgical History?: Yes Hx Coronary Stent: Yes (x2) Hx Open Heart Surgery: No Hx Pacemaker: No Hx Internal Defibrillator: No Hx Cholecystectomy: Yes Hx Appendectomy: No Additional Surgical History: Cardiac stents, Stent in Rt. leg - Social History Smoking Status: Never Smoker Substance Use Type: None - Medications Home Medications: Home Medications Medication Instructions Recorded Confirmed Last Taken Type Furosemide [Lasix TAB] 40 mg PO BID #30 tablet 05/30/18 05/31/18 05/30/18 Rx clonazePAM [KlonoPIN] 0.25 mg PO TID #30 tablet 05/30/18 05/31/18 05/30/18 Rx Aspirin [Aspirin BABY CHEW TAB] 81 mg PO QDAY 05/31/18 05/31/18 05/30/18 History Furosemide [Lasix TAB] 40 mg PO BID #60 tablet 05/31/18 Unknown Rx Aspirin [Aspirin BABY CHEW TAB] 81 mg PO QDAY #30 tab.chew 06/01/18 Unknown Rx Digoxin [Lanoxin] 0.25 mg PO DAILY@1700 #30 tablet 06/01/18 Unknown Rx Divalproex ER [Depakote ER] 500 mg PO BID #60 tablet 06/01/18 Unknown Rx Losartan [Cozaar] 25 mg PO QDAY #30 tablet 06/01/18 Unknown Rx Metoprolol [Lopressor TAB] 50 mg PO TID #180 tablet 06/01/18 Unknown Rx Mirtazapine [Remeron] 7.5 mg PO QHS #14 tablet 06/01/18 Unknown Rx OLANzapine [ZyPREXA] 5 mg PO BID #60 tablet 06/01/18 Unknown Rx Rivaroxaban [Xarelto] 20 mg PO QDAY #30 tablet 06/01/18 Unknown Rx Tamsulosin [Flomax] 0.4 mg PO DAILY #30 capsule 06/01/18 Unknown Rx ED Physical Exam - General Limitations: No Limitations General appearance: alert, in no apparent distress - Head Head exam: Present: atraumatic, normocephalic - Eye Eye exam: Present: normal appearance - ENT ENT exam: Present: mucous membranes moist - Respiratory Respiratory exam: Present: rales (mild rales in the bilateral bases). Absent: respiratory distress, wheezes, rhonchi, stridor, chest wall tenderness, accessory muscle use, decreased breath sounds, prolonged expiratory - Cardiovascular Cardiovascular Exam: Present: tachycardia, irregular rhythm. Absent: systolic murmur, diastolic murmur, rubs, gallop - Extremities Exam Extremities exam: Present: pedal edema (chronic, bilaterally, no erythema ) - Neurological Exam Neurological exam: Present: alert, oriented X3 - Psychiatric Psychiatric exam: Present: normal affect, normal mood - Skin Skin exam: Present: warm, dry, intact ED Course Vital Signs 06/01/18 06/01/18 06/01/18 16:33 18:15 18:39 Temperature 98.4 F Pulse Rate 115 H 86 86 Respiratory 16 18 Rate Blood Pressure 120/80 123/77 Blood Pressure 123/77 [Right] O2 Sat by Pulse 100 100 Oximetry ED Medical Decision Making - Lab Data Result diagrams: 06/01/18 16:46 06/01/18 16:46 Lab Results 06/01/18 06/01/18 06/01/18 Range/Units 16:46 16:46 16:46 WBC 6.5 (4.5-11.0) K/mm3 RBC 4.46 (3.65-5.03) M/mm3 Hgb 10.3 L (11.8-15.2) gm/dl Hct 32.2 L (35.5-45.6) % MCV 72 L (84-94) fl MCH 23 L (28-32) pg MCHC 32 (32-34) % RDW 16.2 H (13.2-15.2) % Plt Count 193 (140-440) K/mm3 PT 14.0 (12.2-14.9) Sec. INR 1.02 (0.87-1.13) APTT 27.7 (24.2-36.6) Sec. Sodium 139 (137-145) mmol/L Potassium 3.8 (3.6-5.0) mmol/L Chloride 101.6 (98-107) mmol/L Carbon Dioxide 27 (22-30) mmol/L Anion Gap 14 mmol/L BUN 22 H (9-20) mg/dL Creatinine 1.3 (0.8-1.5) mg/dL Estimated GFR > 60 ml/min BUN/Creatinine Ratio 17 % Glucose 91 (75-100) mg/dL Calcium 9.5 (8.4-10.2) mg/dL NT-Pro-B Natriuret Pep (0-900) pg/mL 06/01/18 Range/Units 16:46 WBC (4.5-11.0) K/mm3 RBC (3.65-5.03) M/mm3 Hgb (11.8-15.2) gm/dl Hct (35.5-45.6) % MCV (84-94) fl MCH (28-32) pg MCHC (32-34) % RDW (13.2-15.2) % Plt Count (140-440) K/mm3 PT (12.2-14.9) Sec. INR (0.87-1.13) APTT (24.2-36.6) Sec. Sodium (137-145) mmol/L Potassium (3.6-5.0) mmol/L Chloride (98-107) mmol/L Carbon Dioxide (22-30) mmol/L Anion Gap mmol/L BUN (9-20) mg/dL Creatinine (0.8-1.5) mg/dL Estimated GFR ml/min BUN/Creatinine Ratio % Glucose (75-100) mg/dL Calcium (8.4-10.2) mg/dL NT-Pro-B Natriuret Pep 3989 H (0-900) pg/mL - Medical Decision Making Pt is a 72 yo male who presents to the ED with c/o medication refill. The patient states he lost his refills that he was given on 05/30/18. He denies any CP, SOB, palpitations, N/V, cough, fever or any other sx. He has chronic BLE edema. He states he has an appointment with his PCP tomorrow (06/02/17). The patient states he has his lasix and aspirin, but none of the other prescriptions. Pt had mild rales in the bases of the lungs. Pt given 40 mg of lasix and 50 mg of metoprolol while in the ED. Heart rate improved. Pt medications were refilled. Advised pt to please keep his appt with his PCP on 06/02/18. Advised pt that future refills would need to be through his PCP. Discussed for pt to please return for any new or worsening symptoms. Discussed pt with Dr. Crane who agreed with treatment and plan. Critical care attestation.: If time is entered above; I have spent that time in minutes in the direct care of this critically ill patient, excluding procedure time. ED Disposition Clinical Impression: Bilateral leg edema, Medication refill, Anticoagulated on Coumadin CHF (congestive heart failure) Qualifiers: Heart failure type: unspecified Heart failure chronicity: chronic Qualified Code(s): I50.9 - Heart failure, unspecified Afib Qualifiers: Atrial fibrillation type: chronic Qualified Code(s): I48.2 - Chronic atrial fibrillation Disposition: TO HOME OR SELFCARE Is pt being admited?: No Does the pt Need Aspirin: No Condition: Stable Instructions: Heart Failure (ED) Additional Instructions: Please see your primary care doctor tomorrow (06/02/18). Will need to get future refills from primary care. Return to the emergency room for any new or worsening symptoms. Prescriptions: Mirtazapine [Remeron] 7.5 mg PO QHS #14 tablet Aspirin [Aspirin BABY CHEW TAB] 81 mg PO QDAY #30 tab.chew Losartan [Cozaar] 25 mg PO QDAY #30 tablet Divalproex ER [Depakote ER] 500 mg PO BID #60 tablet Tamsulosin [Flomax] 0.4 mg PO DAILY #30 capsule Digoxin [Lanoxin] 0.25 mg PO DAILY@1700 #30 tablet Metoprolol [Lopressor TAB] 50 mg PO TID #180 tablet Rivaroxaban [Xarelto] 20 mg PO QDAY #30 tablet OLANzapine [ZyPREXA] 5 mg PO BID #60 tablet Referrals: HAO AVELAR MD [Primary Care Provider] - [facility] Time of Disposition: 17:54 Print Language: URDU
[2018-06-01] MEDS ORDERED: LOPRESSOR PO ONE (17:59)
[2018-06-01 18:27] VITALS: BP 123/77
== END 2018-06-01 18:39 | disposition home or self-care (01) ==
LOC: ED 15:22
DX: I48.2 Chronic atrial fibrillation (principal); R60.9 Edema, unspecified; I11.0 Hypertensive heart disease with heart failure; I50.9 Heart failure, unspecified; Z76.0 Encounter for issue of repeat prescription; I25.2 Old myocardial infarction; Z86.73 Personal history of transient ischemic attack (TIA), and cerebral infarction without residual deficits; Z95.0 Presence of cardiac pacemaker; Z90.49 Acquired absence of other specified parts of digestive tract; Z79.82 Long term (current) use of aspirin; Z91.013 Allergy to seafood
CPT/HCPCS: 36415; 80048; 83880; 85027; 85610; 85730; 99283

== ENCOUNTER 2018-06-04 19:24 | Emergency (ER) | payer MEDICARE ==
--- NOTE | 2018-06-04 20:05 | Emergency Department Report ---
Chief Complaint: Chest Pain Stated Complaint: LEGS/ANKLE/CHEST PAIN Time Seen by Provider: 06/04/18 20:01 - HPI History of Present Illness: Pt was at [facility] [place] medications refilled this morning pt states he has aching in the bilateral ankles and heels states he took his prescribed medications this morning pt was evaluated in the ED a couple of days ago and had his medications refilled then as well substernal CP that began at 1:15 PM describes the pain as sharp (+) sob no radiation of the pain no N/V EKG with afib, normal rate MSE screening note: Focused history performed Due to findings the following was ordered: labs, EKG, CXR ED Disposition for MSE Condition: Stable
[2018-06-04 20:19] LABS: Basophils # (Auto) 0.1 K/mm3 (0.0-0.1); Basophils % (Auto) 1.2 % (0.0-1.8); Eosinophils # (Auto) 0.2 K/mm3 (0.0-0.4); Eosinophils % (Auto) 3.3 % (0.0-4.3); Hematocrit 31.1 % (35.5-45.6); Lymphocytes % (Auto) 18.3 % (13.4-35.0); Mean Corpuscular HGB Conc 32 % (32-34); Mean Corpuscular Volume 73 fl (84-94); Monocytes # (Auto) 0.5 K/mm3 (0.0-0.8); Monocytes % (Auto) 9.7 % (0.0-7.3); Platelet Count 185 K/mm3 (140-440); Red Blood Count 4.26 M/mm3 (3.65-5.03); Red Cell Distribution Width 16.4 % (13.2-15.2)
[2018-06-04 20:29] LABS: INR 1.81 (0.87-1.13)
[2018-06-04 20:30] LABS: Partial Thromboplastin Time 45.9 Sec. (24.2-36.6)
[2018-06-04 20:48] LABS: Alanine Aminotransferase 14 units/L (7-56); Albumin 3.8 g/dL (3.9-5); BUN/Creatinine Ratio 19; Blood Urea Nitrogen 25 mg/dL (9-20); Calcium 9.6 mg/dL (8.4-10.2); Hemolysis Index 44
[2018-06-04] MEDS ORDERED: ULTRAM PO ONE (20:54)
--- NOTE | 2018-06-04 20:58 | Emergency Department Report ---
ED Chest Pain HPI - General Chief Complaint: Chest Pain Stated Complaint: LEGS/ANKLE/CHEST PAIN Time Seen by Provider: 06/04/18 20:01 Source: patient, old records reviewed Mode of arrival: Ambulatory Limitations: No Limitations - History of Present Illness Initial Comments: 72-year-old male that asthma, history of bipolar with psychosis, chronic atrial fibrillation (on Xarelto) ascending aortic aneurysm CHF, hypertension, CAD with stents 2, cholecystectomy, and right leg stent secondary PAD presents to the hospital with complaints of bilateral leg edema, ankle, foot pain, and chest pain. Patient presented to triage complaining of substernal chest pain 3 hours prior to arrival. Patient tells me he had "a little chest pain" with mild shortness of breath but the pain has resolved. He mostly complains of improving leg edema and persistent and chronic foot pain worse with palpation and movement. No trauma or recent injury reported. This is patient's visit here to the ED May 06 for similar complaints. Patient was actually admitted here May 17 and was treated for UTI and had medications optimized with continued anticoagulation for chronic atrial fibrillation. Patient also states he was at [facility] [place] and received prescriptions. Patient also received prescriptions during his ER visit here on June 01. Patient is bouncing between hospitals with ongoing chronic complaints. He states he lives alone in an apartment. He denies taking any current medication for pain. Patient is sleeping but easily arousable with no acute distress during examination. Patient had a cardiac cath. 11/04/2013 Negative stress test May 2015 06/09/2018 negative bilateral lower extremity Dopplers for DVT Severity scale (0 -10): 9 - Related Data Home Medications Medication Instructions Recorded Confirmed Last Taken Aspirin [Aspirin BABY CHEW TAB] 81 mg PO QDAY 05/31/18 05/31/18 05/30/18 Previous Rx's Medication Instructions Recorded Last Taken Type Furosemide [Lasix TAB] 40 mg PO BID #30 tablet 05/30/18 05/30/18 Rx clonazePAM [KlonoPIN] 0.25 mg PO TID #30 tablet 05/30/18 05/30/18 Rx Furosemide [Lasix TAB] 40 mg PO BID #60 tablet 05/31/18 Unknown Rx Aspirin [Aspirin BABY CHEW TAB] 81 mg PO QDAY #30 tab.chew 06/01/18 Unknown Rx Digoxin [Lanoxin] 0.25 mg PO DAILY@1700 #30 tablet 06/01/18 Unknown Rx Divalproex ER [Depakote ER] 500 mg PO BID #60 tablet 06/01/18 Unknown Rx Losartan [Cozaar] 25 mg PO QDAY #30 tablet 06/01/18 Unknown Rx Metoprolol [Lopressor TAB] 50 mg PO TID #180 tablet 06/01/18 Unknown Rx Mirtazapine [Remeron] 7.5 mg PO QHS #14 tablet 06/01/18 Unknown Rx OLANzapine [ZyPREXA] 5 mg PO BID #60 tablet 06/01/18 Unknown Rx Rivaroxaban [Xarelto] 20 mg PO QDAY #30 tablet 06/01/18 Unknown Rx Tamsulosin [Flomax] 0.4 mg PO DAILY #30 capsule 06/01/18 Unknown Rx Acetaminophen [Acetaminophen TAB] 500 mg PO Q4HR PRN #20 tablet 06/05/18 Unknown Rx Allergies Allergy/AdvReac Type Severity Reaction Status Date / Time shellfish derived Allergy Itching Verified 06/01/18 15:23 Heart Score - HEART Score History: Slightly suspicious EKG: Normal Age: > 65 Risk factors: > 3 risk factors or hx of atherosclerotic disease Troponin: < normal limit HEART Score: 4 ED Review of Systems ROS: Stated complaint: LEGS/ANKLE/CHEST PAIN Other details as noted in HPI Comment: All other systems reviewed and negative ED Past Medical Hx - Past Medical History Hx Hypertension: Yes Hx CVA: Yes (2011) Hx Heart Attack/AMI: Yes Hx Congestive Heart Failure: Yes Hx Deep Vein Thrombosis: No Hx Liver Disease: Yes Hx Renal Disease: No Hx Arthritis: No Hx Seizures: No Hx Psychiatric Treatment: Yes (Bipolar,) Hx Asthma: No Hx Tuberculosis: No Hx Dementia: No Hx HIV: No Additional medical history: Afib, ascending aortic aneurysm - Surgical History Hx Coronary Stent: Yes (x2) Hx Open Heart Surgery: No Hx Pacemaker: No Hx Internal Defibrillator: No Hx Cholecystectomy: Yes Hx Appendectomy: No Additional Surgical History: Cardiac stents, Stent in Rt. leg - Social History Smoking Status: Unknown if ever smoked Substance Use Type: None - Medications Home Medications: Home Medications Medication Instructions Recorded Confirmed Last Taken Type Furosemide [Lasix TAB] 40 mg PO BID #30 tablet 05/30/18 05/31/18 05/30/18 Rx clonazePAM [KlonoPIN] 0.25 mg PO TID #30 tablet 05/30/18 05/31/18 05/30/18 Rx Aspirin [Aspirin BABY CHEW TAB] 81 mg PO QDAY 05/31/18 05/31/18 05/30/18 History Furosemide [Lasix TAB] 40 mg PO BID #60 tablet 05/31/18 Unknown Rx Aspirin [Aspirin BABY CHEW TAB] 81 mg PO QDAY #30 tab.chew 06/01/18 Unknown Rx Digoxin [Lanoxin] 0.25 mg PO DAILY@1700 #30 tablet 06/01/18 Unknown Rx Divalproex ER [Depakote ER] 500 mg PO BID #60 tablet 06/01/18 Unknown Rx Losartan [Cozaar] 25 mg PO QDAY #30 tablet 06/01/18 Unknown Rx Metoprolol [Lopressor TAB] 50 mg PO TID #180 tablet 06/01/18 Unknown Rx Mirtazapine [Remeron] 7.5 mg PO QHS #14 tablet 06/01/18 Unknown Rx OLANzapine [ZyPREXA] 5 mg PO BID #60 tablet 06/01/18 Unknown Rx Rivaroxaban [Xarelto] 20 mg PO QDAY #30 tablet 06/01/18 Unknown Rx Tamsulosin [Flomax] 0.4 mg PO DAILY #30 capsule 06/01/18 Unknown Rx Acetaminophen [Acetaminophen TAB] 500 mg PO Q4HR PRN #20 tablet 06/05/18 Unknown Rx ED Physical Exam - General Limitations: No Limitations - Other Other exam information: General: No limitations, patient is alert in no acute distress Head exam: Atraumatic, normocephalic Eyes exam: Normal appearance ENT: Moist mucous membrane, normal oropharynx Neck exam: Normal inspection, full range of motion, no meningismus nontender Respiratory exam: Clear to auscultation bilateral, no wheezes, rales, crackles Cardiovascular: Normal rate and rhythm, normal heart sounds Abdomen: Soft, nondistended, and nontender, with normal bowel sounds, no rebound, or guarding Extremity: Full range of motion, bilateral 2-3+ pitting edema of the lower legs. Dopplerable DP pulses equal bilaterally but unable to palpate. No lesions, erythema, warmth. Refill less than 2 seconds. No calf tenderness or leg asymmetry. Back: Normal Inspection, full range of motion, no tenderness Neurologic: Alert, oriented x3, cranial nerves intact, no motor or sensory deficit Psychiatric: normal affect, normal mood Skin: Warm, dry, intact ED Course Vital Signs 06/04/18 06/04/18 20:01 20:46 Temperature 98.3 F Pulse Rate 99 H 98 H Respiratory 20 15 Rate Blood Pressure 124/64 117/62 O2 Sat by Pulse 100 98 Oximetry JT score - Jt Score Age > 65: (1) Yes Aspirin use within the Past 7 Days: (0) No 3 or more CAD Risk Factors: (1) Yes 2 or more Angina events in past 24 hrs: (0) No Known CAD with more than 50% Stenosis: (0) No Elevated Cardiac Markers: (0) No ST Deviation Greater than 0.5mm: (0) No JT Score: 2 ED Medical Decision Making - Lab Data Result diagrams: 06/04/18 20:08 06/04/18 20:08 Lab Results 06/04/18 06/04/18 06/04/18 Range/Units 20:08 20:08 20:08 WBC 5.2 (4.5-11.0) K/mm3 RBC 4.26 (3.65-5.03) M/mm3 Hgb 10.0 L (11.8-15.2) gm/dl Hct 31.1 L (35.5-45.6) % MCV 73 L (84-94) fl MCH 23 L (28-32) pg MCHC 32 (32-34) % RDW 16.4 H (13.2-15.2) % Plt Count 185 (140-440) K/mm3 Lymph % (Auto) 18.3 (13.4-35.0) % Burnet % (Auto) 9.7 H (0.0-7.3) % Eos % (Auto) 3.3 (0.0-4.3) % Baso % (Auto) 1.2 (0.0-1.8) % Lymph # 1.0 L (1.2-5.4) K/mm3 Burnet # 0.5 (0.0-0.8) K/mm3 Eos # 0.2 (0.0-0.4) K/mm3 Baso # 0.1 (0.0-0.1) K/mm3 Seg Neutrophils % 67.5 (40.0-70.0) % Seg Neutrophils # 3.5 (1.8-7.7) K/mm3 PT 22.2 H (12.2-14.9) Sec. INR 1.81 H (0.87-1.13) APTT 45.9 H (24.2-36.6) Sec. Sodium 140 (137-145) mmol/L Potassium 4.6 D (3.6-5.0) mmol/L Chloride 103.5 (98-107) mmol/L Carbon Dioxide 26 (22-30) mmol/L Anion Gap 15 mmol/L BUN 25 H (9-20) mg/dL Creatinine 1.3 (0.8-1.5) mg/dL Estimated GFR > 60 ml/min BUN/Creatinine Ratio 19 % Glucose 105 H (75-100) mg/dL Calcium 9.6 (8.4-10.2) mg/dL Total Bilirubin 0.40 (0.1-1.2) mg/dL AST 25 (5-40) units/L ALT 14 (7-56) units/L Alkaline Phosphatase 50 (35-129) units/L Troponin T 0.012 (0.00-0.029) ng/mL Total Protein 7.2 (6.3-8.2) g/dL Albumin 3.8 L (3.9-5) g/dL Albumin/Globulin Ratio 1.1 % / Range/Units 22:59 WBC (4.5-11.0) K/mm3 RBC (3.65-5.03) M/mm3 Hgb (11.8-15.2) gm/dl Hct (35.5-45.6) % MCV (84-94) fl MCH (28-32) pg MCHC (32-34) % RDW (13.2-15.2) % Plt Count (140-440) K/mm3 Lymph % (Auto) (13.4-35.0) % Burnet % (Auto) (0.0-7.3) % Eos % (Auto) (0.0-4.3) % Baso % (Auto) (0.0-1.8) % Lymph # (1.2-5.4) K/mm3 Burnet # (0.0-0.8) K/mm3 Eos # (0.0-0.4) K/mm3 Baso # (0.0-0.1) K/mm3 Seg Neutrophils % (40.0-70.0) % Seg Neutrophils # (1.8-7.7) K/mm3 PT (12.2-14.9) Sec. INR (0.87-1.13) APTT (24.2-36.6) Sec. Sodium (137-145) mmol/L Potassium (3.6-5.0) mmol/L Chloride (98-107) mmol/L Carbon Dioxide (22-30) mmol/L Anion Gap mmol/L BUN (9-20) mg/dL Creatinine (0.8-1.5) mg/dL Estimated GFR ml/min BUN/Creatinine Ratio % Glucose (75-100) mg/dL Calcium (8.4-10.2) mg/dL Total Bilirubin (0.1-1.2) mg/dL AST (5-40) units/L ALT (7-56) units/L Alkaline Phosphatase (35-129) units/L Troponin T < 0.010 (0.00-0.029) ng/mL Total Protein (6.3-8.2) g/dL Albumin (3.9-5) g/dL Albumin/Globulin Ratio % - EKG Data -: EKG Interpreted by Me (afib [id number]) EKG shows normal: axis (qrs -12), QRS complexes (qrsd 95), ST-T waves (no stemi) - EKG Data When compared to previous EKG there are: no significant change 06/05/18 00:45 Repeat EKG shows persistent atrial fibrillation rate controlled without signs of ST elevation PA or acute changes compared to previous - Radiology Data Radiology results: report reviewed pcxr: Cardiomegaly - Medical Decision Making Patient presenting with chronic complaints of bilateral leg edema and foot pain. Diminished pulses on exam but they are present without signs of infection. Patient did complain of chest pain which resolved and has 2 negative troponins and unchanged EKG. PT is taking Xarelto with no signs of hypoxia, persistent chest pain, or shortness of breath therefore no suspicion for pulmonary embolus. Patient will be discharged home. he Did receive tramadol in the ED. - Differential Diagnosis PA, angina, chronic pain, bipolar/psychosis, social issues, PAD, neuropathy Critical Care Time: No Critical care attestation.: If time is entered above; I have spent that time in minutes in the direct care of this critically ill patient, excluding procedure time. ED Disposition Clinical Impression: Bilateral leg edema, Chronic atrial fibrillation, Chronic leg pain, Current use of long chain beamer anticoagulation, Bipolar disorder, Atypical chest pain Disposition: TO HOME OR SELFCARE Is pt being admited?: No Does the pt Need Aspirin: No Condition: Stable Instructions: Chest Pain (ED), Leg Edema (ED) Additional Instructions: Take the medication as prescribed. Follow up with your doctor or the clinic/doctor provided. Return if symptoms worsen as indicated by your discha rge instructions Prescriptions: Acetaminophen [Acetaminophen TAB] 500 mg PO Q4HR PRN #20 tablet PRN Reason: Pain , Severe (7-10) Referrals: PRIMARY CARE,MD [Primary Care Provider] - 3-5 Days Time of Disposition: 00:50
--- NOTE | 2018-06-04 21:09 | XRay Report ---
PROCEDURE: XR CHEST 1V AP TECHNIQUE: Chest single AP HISTORY: Chest Pain COMPARISONS: Comparison is May 30, 2018 FINDINGS: There is moderate cardiomegaly. No confluent pulmonary infiltrate identified. No pleural fluid collec tion seen. Pulmonary vasculature is unremarkable. IMPRESSION: Cardiomegaly. This document is electronically signed by Mario Craft MD., June 04 2018 09:07:12 PM ET
[2018-06-05 19:38] VITALS: BP 128/79
== END 2018-06-05 01:17 | disposition home or self-care (01) ==
LOC: ED 19:24
DX: I48.2 Chronic atrial fibrillation (principal); R60.0 Localized edema; I11.0 Hypertensive heart disease with heart failure; F31.9 Bipolar disorder, unspecified; Z79.01 Long term (current) use of anticoagulants; Z90.49 Acquired absence of other specified parts of digestive tract; Z95.1 Presence of aortocoronary bypass graft; Z79.82 Long term (current) use of aspirin; Z91.013 Allergy to seafood
CPT/HCPCS: 36415; 71045; 80053; 84484; 85025; 85610; 85730; 93005; 93010; 99284

== ENCOUNTER 2018-06-05 18:32 | Emergency (ER) | payer MEDICARE ==
--- NOTE | 2018-06-05 18:51 | Emergency Department Report ---
Chief Complaint: Extremity Problem,Nontraumatic Stated Complaint: SWELLING ON LEGS Time Seen by Provider: 06/05/18 18:50 - HPI History of Present Illness: 5TH VISIT TO ER THIS MONTH SAME COMPLAINT SEE EMR EATING IN WAITING ROOM AMBULATORY MSE COMPLETED - Exam Vital Signs: Vital Signs 06/05/18 18:38 Temperature 99.9 F H Pulse Rate 80 Respiratory 18 Rate Blood Pressure 128/60 O2 Sat by Pulse 98 Oximetry MSE screening note: Focused history and physical exam performed. Due to findings the following was ordered: ED Disposition for MSE Condition: Stable
--- NOTE | 2018-06-05 20:44 | Emergency Department Report ---
ED Extremity Problem HPI - General Chief complaint: Extremity Problem,Nontraumatic Stated complaint: SWELLING ON LEGS Time Seen by Provider: 06/05/18 18:50 Source: patient Mode of arrival: Ambulatory Limitations: No Limitations - History of Present Illness Initial comments: 72-year-old -[place] male that he is here multiple times in the last 2 m [facility] for the same complaint of leg swelling. Patient reports that he is constantly on his feet as he has to work. Patient has been instructed that he is to elevate his feet in the evenings to follow a low-sodium diet. Patient admits that he has not followed the recommendations from the emergency room. Patient denies any fever shortness of breathing any redness no chest pain. MD Complaint: extremity swelling -: month(s) Location: bilateral lower extremity History of Same: Yes Radiation: distal Severity scale (0 -10): 8 Improves with: elevation Worsens with: walking Associated Symptoms: denies other symptoms - Related Data Home Medications Medication Instructions Recorded Confirmed Last Taken Aspirin [Aspirin BABY CHEW TAB] 81 mg PO QDAY 05/31/18 05/31/18 05/30/18 Previous Rx's Medication Instructions Recorded Last Taken Type Furosemide [Lasix TAB] 40 mg PO BID #30 tablet 05/30/18 05/30/18 Rx clonazePAM [KlonoPIN] 0.25 mg PO TID #30 tablet 05/30/18 05/30/18 Rx Furosemide [Lasix TAB] 40 mg PO BID #60 tablet 05/31/18 Unknown Rx Aspirin [Aspirin BABY CHEW TAB] 81 mg PO QDAY #30 tab.chew 06/01/18 Unknown Rx Digoxin [Lanoxin] 0.25 mg PO DAILY@1700 #30 tablet 06/01/18 Unknown Rx Divalproex ER [Depakote ER] 500 mg PO BID #60 tablet 06/01/18 Unknown Rx Losartan [Cozaar] 25 mg PO QDAY #30 tablet 06/01/18 Unknown Rx Metoprolol [Lopressor TAB] 50 mg PO TID #180 tablet 06/01/18 Unknown Rx Mirtazapine [Remeron] 7.5 mg PO QHS #14 tablet 06/01/18 Unknown Rx OLANzapine [ZyPREXA] 5 mg PO BID #60 tablet 06/01/18 Unknown Rx Rivaroxaban [Xarelto] 20 mg PO QDAY #30 tablet 06/01/18 Unknown Rx Tamsulosin [Flomax] 0.4 mg PO DAILY #30 capsule 06/01/18 Unknown Rx Acetaminophen [Acetaminophen TAB] 500 mg PO Q4HR PRN #20 tablet 06/05/18 Unknown Rx Allergies Allergy/AdvReac Type Severity Reaction Status Date / Time shellfish derived Allergy Itching Verified 06/05/18 18:43 ED Review of Systems ROS: Stated complaint: SWELLING ON LEGS Other details as noted in HPI Comment: All other systems reviewed and negative ED Past Medical Hx - Past Medical History Previous Medical History?: Yes Hx Hypertension: Yes Hx CVA: Yes (2012) Hx Heart Attack/AMI: Yes Hx Congestive Heart Failure: Yes Hx Deep Vein Thrombosis: No Hx Liver Disease: Yes Hx Renal Disease: No Hx Arthritis: No Hx Seizures: No Hx Psychiatric Treatment: Yes (Bipolar,) Hx Asthma: No Hx Tuberculosis: No Hx Dementia: No Hx HIV: No Additional medical history: Afib, - Surgical History Past Surgical History?: Yes Hx Coronary Stent: Yes (x2) Hx Open Heart Surgery: No Hx Pacemaker: No Hx Internal Defibrillator: No Hx Cholecystectomy: Yes Hx Appendectomy: No Additional Surgical History: Cardiac stents, Stent in Rt. leg - Social History Smoking Status: Never Smoker Substance Use Type: None - Medications Home Medications: Home Medications Medication Instructions Recorded Confirmed Last Taken Type Furosemide [Lasix TAB] 40 mg PO BID #30 tablet 05/30/18 05/31/18 05/30/18 Rx clonazePAM [KlonoPIN] 0.25 mg PO TID #30 tablet 05/30/18 05/31/18 05/30/18 Rx Aspirin [Aspirin BABY CHEW TAB] 81 mg PO QDAY 05/31/18 05/31/18 05/30/18 History Furosemide [Lasix TAB] 40 mg PO BID #60 tablet 05/31/18 Unknown Rx Aspirin [Aspirin BABY CHEW TAB] 81 mg PO QDAY #30 tab.chew 06/01/18 Unknown Rx Digoxin [Lanoxin] 0.25 mg PO DAILY@1700 #30 tablet 06/01/18 Unknown Rx Divalproex ER [Depakote ER] 500 mg PO BID #60 tablet 06/01/18 Unknown Rx Losartan [Cozaar] 25 mg PO QDAY #30 tablet 06/01/18 Unknown Rx Metoprolol [Lopressor TAB] 50 mg PO TID #180 tablet 06/01/18 Unknown Rx Mirtazapine [Remeron] 7.5 mg PO QHS #14 tablet 06/01/18 Unknown Rx OLANzapine [ZyPREXA] 5 mg PO BID #60 tablet 06/01/18 Unknown Rx Rivaroxaban [Xarelto] 20 mg PO QDAY #30 tablet 06/01/18 Unknown Rx Tamsulosin [Flomax] 0.4 mg PO DAILY #30 capsule 06/01/18 Unknown Rx Acetaminophen [Acetaminophen TAB] 500 mg PO Q4HR PRN #20 tablet 06/05/18 Unknown Rx ED Physical Exam - General Limitations: No Limitations General appearance: alert, in no apparent distress - Head Head exam: Present: atraumatic, normocephalic - Eye Eye exam: Present: normal appearance - ENT ENT exam: Present: mucous membranes moist - Neck Neck exam: Present: normal inspection - Respiratory Respiratory exam: Present: normal lung sounds bilaterally. Absent: respiratory distress - Cardiovascular Cardiovascular Exam: Present: regular rate, systolic murmur - GI/Abdominal GI/Abdominal exam: Present: soft, normal bowel sounds - Expanded Lower Extremity Exam Right Knee exam: Present: full ROM, swelling Lower Leg exam: Present: full ROM, swelling Foot/Toe exam: Present: full ROM, tenderness Left Knee exam: Present: full ROM, swelling Lower Leg exam: Present: full ROM, swelling Foot/Toe exam: Present: full ROM, swelling Neuro vascular tendon exam: Present: no vascular compromise - Neurological Exam Neurological exam: Present: alert, oriented X3 ED Course Vital Signs 06/05/18 18:38 Temperature 99.9 F H Pulse Rate 80 Respiratory 18 Rate Blood Pressure 128/60 O2 Sat by Pulse 98 Oximetry ED Medical Decision Making - Medical Decision Making Patient has been evaluated by this provider [facility]. Discussed the patient that he needs to elevate his feet when he gets home from work. He needs to watch his sodium intake. And to keep his appointments to his primary care doctor's. Patient verbalized understanding. Critical care attestation.: If time is entered above; I have spent that time in minutes in the direct care of this critically ill patient, excluding procedure time. ED Disposition Clinical Impression: Dependent edema Disposition: DC-01 TO HOME OR SELFCARE Is pt being admited?: No Does the pt Need Aspirin: No Condition: Stable Additional Instructions: Please elevate your legs when you get home from work. Watch her sodium intake. Follow-up with her primary care providers. Referrals: PRIMARY CARE, [Primary Care Provider] - 3-5 Days ЕЛЕНА MCKEON MD [Staff Physician] - 3-5 Days
[2018-06-05 21:30] VITALS: BP 128/60
== END 2018-06-05 21:04 | disposition home or self-care (01) ==
LOC: ED 18:32
DX: R60.9 Edema, unspecified (principal); I11.0 Hypertensive heart disease with heart failure; I50.9 Heart failure, unspecified; Z86.73 Personal history of transient ischemic attack (TIA), and cerebral infarction without residual deficits; Z95.1 Presence of aortocoronary bypass graft; Z90.49 Acquired absence of other specified parts of digestive tract; Z79.82 Long term (current) use of aspirin; Z91.013 Allergy to seafood
CPT/HCPCS: 99281

== ENCOUNTER 2018-06-05 23:07 | Emergency (ER) | payer MEDICARE ==
[2018-06-06] MEDS ORDERED: ASPIRIN PO ONE (00:20)
[2018-06-06 00:54] LABS: Basophils % (Auto) 0.5 % (0.0-1.8); Eosinophils # (Auto) 0.1 K/mm3 (0.0-0.4); Eosinophils % (Auto) 2.5 % (0.0-4.3); Lymphocytes # (Auto) 0.9 K/mm3 (1.2-5.4); Lymphocytes % (Auto) 15.3 % (13.4-35.0); Mean Corpuscular HGB Conc 32 % (32-34); Mean Corpuscular Volume 73 fl (84-94); Monocytes # (Auto) 0.6 K/mm3 (0.0-0.8); Monocytes % (Auto) 9.6 % (0.0-7.3); Platelet Count 200 K/mm3 (140-440); Red Blood Count 4.24 M/mm3 (3.65-5.03); Red Cell Distribution Width 16.4 % (13.2-15.2)
--- NOTE | 2018-06-06 01:02 | Emergency Department Report ---
ED General Adult HPI - General Chief complaint: Dyspnea/Respdistress Stated complaint: ROBERTO Time Seen by Provider: 06/06/18 00:28 Source: patient, RN notes reviewed, old records reviewed Mode of arrival: Stretcher Limitations: Physical Limitation - History of Present Illness Initial comments: This is a 72-year-old gentleman. I have evaluated this patient in the past. His past medical history includes bipolar disorder, permanent atrial fibrillation, on xarelto, digoxin, metoprolol Also has a past medical history of chronic diastolic heart failure, ejection fraction 45-50% with moderate right ventricular dysfunction, heart disease with stents, 2011, known history of a sending aortic aneurysm, 4.[address], chronic DVT, systemic hypertension, chronic renal insufficiency The patient had a cardiac catheterization performed in 2013 which demonstrated a patent LAD stent. The patient had a nuclear stress test in 2015, which demonstrated no reversible ischemia. Today, the patient presents to the emergency room with a complaint of chest pain and shortness of breath. The patient is sleepy. He apparently took his valproic acid and Remeron prior to my evaluation. He is not able to describe the nature of the chest pain, radiation, or call to the nature of the symptoms. He denies headache, neck pain, admits to chronic shortness of breath, and reports chronic lower extremity swelling. He makes no complaint of homicidality or suicidality. History is limited as the patient is a poor historian sleepy, somewhat difficult to arouse, and is also somewhat disorganized. As per nursing team documentation: Received patient ambulatory from main waiting room to room 22. Patient is aaox4, respirations even and unlabored on room air, sating at 100%, skin warm, dry, and intact. Patient reports ROBERTO that started this evening, intermittent sternal CP described as "achy" that started at approximately 1930 tonight, and dizziness upon ambulating. Patient denies N/V. Patient also reports productive cough with green phlegm that also started this evening. VSS. PMHx of CHF, HTN, Afib, coronary stents and stent to the right leg, and CVA with no deficits. Patient reports being compliant with all medication. Patient in gown and on monitor. Awaiting MD stone. Of note, this patient has had multiple visits to this department over the past month and a half. His physical exam today appears to be similar to prior physical examinations, although he is somewhat more somnolent than typically. -: Gradual, hour(s) (he reports that the chest pain started at 7:30 the preceding evening.) Severity scale (0 -10): 8 Quality: other Consistency: other Improves with: other Worsens with: other Associated Symptoms: shortness of breath, weakness, other - Related Data Home Medications Medication Instructions Recorded Confirmed Last Taken Metoprolol [Lopressor TAB] 50 mg PO TID 06/06/18 06/06/18 Unknown Previous Rx's Medication Instructions Recorded Last Taken Type Furosemide [Lasix TAB] 40 mg PO BID #30 tablet 05/30/18 05/30/18 Rx Furosemide [Lasix TAB] 40 mg PO BID #60 tablet 05/31/18 Unknown Rx Aspirin [Aspirin BABY CHEW TAB] 81 mg PO QDAY #30 tab.chew 06/01/18 06/05/18 10:00 Rx Digoxin [Lanoxin] 0.25 mg PO DAILY@1700 #30 tablet 06/01/18 Unknown Rx Divalproex ER [Depakote ER] 500 mg PO BID #60 tablet 06/01/18 06/05/18 22:00 Rx Losartan [Cozaar] 25 mg PO QDAY #30 tablet 06/01/18 Unknown Rx Mirtazapine [Remeron] 7.5 mg PO QHS #14 tablet 06/01/18 06/05/18 22:00 Rx OLANzapine [ZyPREXA] 5 mg PO BID #60 tablet 06/01/18 Unknown Rx Rivaroxaban [Xarelto] 20 mg PO QDAY #30 tablet 06/01/18 Unknown Rx Tamsulosin [Flomax] 0.4 mg PO DAILY #30 capsule 06/01/18 Unknown Rx Allergies Allergy/AdvReac Type Severity Reaction Status Date / Time shellfish derived Allergy Itching Verified 06/05/18 18:43 ED Review of Systems ROS: Stated complaint: ROBERTO Other details as noted in HPI Constitutional: denies: fever Eyes: denies: eye discharge Respiratory: shortness of breath Cardiovascular: chest pain Gastrointestinal: denies: abdominal pain Genitourinary: denies: dysuria Neurological: weakness Psychiatric: denies: homicidal thoughts, suicidal thoughts ED Past Medical Hx - Past Medical History Previous Medical History?: Yes Hx Hypertension: Yes Hx CVA: Yes (2011) Hx Heart Attack/AMI: Yes Hx Congestive Heart Failure: Yes Hx Deep Vein Thrombosis: No Hx Liver Disease: No Hx Renal Disease: No Hx Arthritis: No Hx Seizures: No Hx Psychiatric Treatment: Yes (Bipolar,) Hx Asthma: No Hx Tuberculosis: No Hx Dementia: No Hx HIV: No Additional medical history: Afib, - Surgical History Hx Coronary Stent: Yes (x2) Hx Open Heart Surgery: No Hx Pacemaker: No Hx Internal Defibrillator: No Hx Cholecystectomy: Yes Hx Appendectomy: No Additional Surgical History: Cardiac stents, Stent in Rt. leg - Social History Smoking Status: Never Smoker Substance Use Type: None - Medications Home Medications: Home Medications Medication Instructions Recorded Confirmed Last Taken Type Furosemide [Lasix TAB] 40 mg PO BID #30 tablet 05/30/18 05/31/18 05/30/18 Rx Furosemide [Lasix TAB] 40 mg PO BID #60 tablet 05/31/18 06/06/18 Unknown Rx Aspirin [Aspirin BABY CHEW TAB] 81 mg PO QDAY #30 tab.chew 06/01/18 06/06/18 06/05/18 10:00 Rx Digoxin [Lanoxin] 0.25 mg PO DAILY@1700 #30 tablet 06/01/18 06/06/18 Unknown Rx Divalproex ER [Depakote ER] 500 mg PO BID #60 tablet 06/01/18 06/06/18 06/05/18 22:00 Rx Losartan [Cozaar] 25 mg PO QDAY #30 tablet 06/01/18 06/06/18 Unknown Rx Mirtazapine [Remeron] 7.5 mg PO QHS #14 tablet 06/01/18 06/06/18 06/05/18 22:00 Rx OLANzapine [ZyPREXA] 5 mg PO BID #60 tablet 06/01/18 06/06/18 Unknown Rx Rivaroxaban [Xarelto] 20 mg PO QDAY #30 tablet 06/01/18 06/06/18 Unknown Rx Tamsulosin [Flomax] 0.4 mg PO DAILY #30 capsule 06/01/18 06/06/18 Unknown Rx Metoprolol [Lopressor TAB] 50 mg PO TID 06/06/18 06/06/18 Unknown History ED Physical Exam - General Limitations: Physical Limitation General appearance: lethargic - Head Head exam: Present: atraumatic, normocephalic - Eye Eye exam: Present: normal appearance, EOMI. Absent: nystagmus - ENT ENT exam: Present: normal exam, normal orophraynx, mucous membranes moist, normal external ear exam - Neck Neck exam: Present: normal inspection, full ROM. Absent: tenderness, meningismus - Respiratory Respiratory exam: Present: normal lung sounds bilaterally. Absent: respiratory distress - Cardiovascular Cardiovascular Exam: Present: irregular rhythm, normal heart sounds. Absent: systolic murmur, diastolic murmur, rubs, gallop - GI/Abdominal GI/Abdominal exam: Present: soft. Absent: distended, tenderness, guarding, rebound, rigid, pulsatile mass - Rectal Rectal exam: Present: deferred - Extremities Exam Extremities exam: Present: normal inspection, full ROM, pedal edema, other (2+ pulses noted in the bilateral upper, lower extremities. Compartments soft. No long bony tenderness. The pelvis is stable.). Absent: calf tenderness - Back Exam Back exam: Present: normal inspection, full ROM. Absent: paraspinal tenderness, vertebral tenderness - Neurological Exam Neurological exam: Present: alert (patient is alert but sleepy), other (patient moving 4 extremities. There is 5 out of 5 strength in 4 extremities. The patient reportedly walked in. There is no facial droop. The tongue is midline. Extraocular movements are intact bilaterally.) - Psychiatric Psychiatric exam: Present: flat affect - Skin Skin exam: Present: warm, dry, intact, normal color. Absent: rash ED Course Vital Signs 06/05/18 06/06/18 06/06/18 23:11 00:14 00:15 Temperature 97.4 F L 97.7 F Pulse Rate 84 90 80 Respiratory 18 17 Rate Blood Pressure 106/48 128/62 Blood Pressure 128/62 [Left] O2 Sat by Pulse 99 100 Oximetry 06/06/18 06/06/18 06/06/18 00:31 00:45 01:15 Temperature Pulse Rate 80 71 84 Respiratory 16 15 15 Rate Blood Pressure 128/62 128/62 120/68 Blood Pressure [Left] O2 Sat by Pulse 100 98 100 Oximetry 06/06/18 06/06/18 06/06/18 01:30 01:45 02:01 Temperature Pulse Rate 81 80 74 Respiratory 16 19 15 Rate Blood Pressure 120/69 119/60 131/62 Blood Pressure [Left] O2 Sat by Pulse 100 100 100 Oximetry 06/06/18 06/06/18 06/06/18 03:09 03:15 03:31 Temperature Pulse Rate 76 73 61 Respiratory 20 16 19 Rate Blood Pressure 120/69 133/69 131/62 Blood Pressure [Left] O2 Sat by Pulse 95 100 97 Oximetry 06/06/18 06/06/18 06/06/18 04:00 04:15 04:31 Temperature Pulse Rate 71 68 64 Respiratory 17 14 17 Rate Blood Pressure 128/65 133/69 133/69 Blood Pressure [Left] O2 Sat by Pulse 100 100 99 Oximetry 06/06/18 06/06/18 06/06/18 05:01 05:15 07:35 Temperature Pulse Rate 61 69 76 Respiratory 20 18 16 Rate Blood Pressure 104/54 128/65 Blood Pressure 145/73 [Left] O2 Sat by Pulse 96 98 100 Oximetry 06/06/18 08:40 Temperature 98 F Pulse Rate Respiratory Rate Blood Pressure Blood Pressure [Left] O2 Sat by Pulse Oximetry - Reevaluation(s) Reevaluation #1: 06/06/18 01:02 Differential diagnosis, including not limited to: GERD, gastritis, hiatal hernia, secondary gain, malingering, acute coronary syndrome, pulmonary embolus Assessment and plan: 06/06/18 01:03 72-year-old gentleman who presents to this emergency room every night, with various complaints. He took multiple sedating medications which are chronically prescribed for him prior to my evaluation. The patient is sleepy but arousable, and not tachycardic, and not hypoxic. On previous evaluations at this hospital, he has endorsed compliance with his systemic anticoagulation. His coagulation parameters 2 days ago reflected this. Patient has had multiple negative troponins over the past month and a half. Patient has been no complaint of homicidality or suicidality, and currently does not meet 1013 criteria for involuntary hold. We will observe the patient, obtain noncontrast CT scan of the brain, obtain serial cardiac enzymes, and serial EKGs. Given that patient has presents to this department so many times for various complaints, and given his rather extensive outpatient cardiac risk stratification, if objective laboratory testing and EKGs remain unremarkable, I would find the patient to be medically suitable to follow up with his outpatient nail machine operator at this facility to complete his outpatient cardiac risk stratification. Reevaluation #2: 04/17/19 01:26 Care will be transferred to the overnight physician, Dr. Daniel Craven, to follow up on laboratory studies. Assuming multiple negative troponins, and multiple unchanged EKGs, and taoist of normal mental status, I would consider the patient suitable for discharge to follow up with an outpatient nail machine operator. Reevaluation #3: 06/06/18 01:38xr chest within normal limits glucose of 64 appreciated patient will be fed and given IV dextrose Reevaluation #4: 06/06/18 01:44 inr 2.4 given lack of tachycardia, lack of hypoxia, evidence of compliance with xarelto and patient being ambulatory, i do not feel that patient requires additional evaluation for pulmonary embolus at this time, and find him to low probably at this time for PE, and will cancel d dimer - EJ/Peripheral Line Neck L Time Out Performed: Yes Indications: nurses unable to establis Skin Cleansed in Sterile Fashion: Yes Size: 20 Dressing Placed: Tegaderm Patient Tolerated Procedure: well ED Medical Decision Making - Lab Data Result diagrams: 06/06/18 00:30 06/06/18 00:30 Vital Signs 06/05/18 06/06/18 23:11 00:15 Temperature 97.4 F L 97.7 F Pulse Rate 84 91 H Respiratory 18 18 Rate Blood Pressure 106/48 Blood Pressure 128/62 [Left] O2 Sat by Pulse 99 100 Oximetry Lab Results 06/06/18 Range/Units 00:30 WBC 5.8 (4.5-11.0) K/mm3 RBC 4.24 (3.65-5.03) M/mm3 Hgb 10.0 L (11.8-15.2) gm/dl Hct 31.0 L (35.5-45.6) % MCV 73 L (84-94) fl MCH 24 L (28-32) pg MCHC 32 (32-34) % RDW 16.4 H (13.2-15.2) % Plt Count 200 (140-440) K/mm3 Lymph % (Auto) 15.3 (13.4-35.0) % [place] % (Auto) 9.6 H (0.0-7.3) % Eos % (Auto) 2.5 (0.0-4.3) % Baso % (Auto) 0.5 (0.0-1.8) % Lymph # 0.9 L (1.2-5.4) K/mm3 [place] # 0.6 (0.0-0.8) K/mm3 Eos # 0.1 (0.0-0.4) K/mm3 Baso # 0.0 (0.0-0.1) K/mm3 Seg Neutrophils % 72.1 H (40.0-70.0) % Seg Neutrophils # 4.2 (1.8-7.7) K/mm3 - EKG Data -: EKG Interpreted by Me - EKG Data When compared to previous EKG there are: no significant change 06/06/18 01:05 This EKG shows atrial fibrillation, rate controlled, 82 bpm, left axis deviation, poor R-wave progression, this is not consistent with ST elevation myocardial infarction. Appears unchanged from prior EKGs. - Radiology Data Radiology results: image reviewed interpreted by me: X-ray of the chest appears unchanged from prior, chronic cardiomegaly, no acute disease. Critical care attestation.: If time is entered above; I have spent that time in minutes in the direct care of this critically ill patient, excluding procedure time. ED Disposition Clinical Impression: Chest pain, SOB (shortness of breath) Disposition: -01 TO HOME OR SELFCARE Is pt being admited?: No Does the pt Need Aspirin: No Condition: Stable Instructions: Chest Pain (ED) Additional Instructions: Continue outpatient medications. I'll up with a nail machine operator within the next 3- 5 days. Return to the emergency room right away with new pain, worsening pain, migration of pain, projectile vomiting, change in mental status, confusion, inability to tolerate liquid feeds, new, worsening or different symptoms. Referrals: HEIDI LOMBARDI MD [Staff Physician] - 3-5 Days MELANIE SINGH MD [Staff Physician] - 3-5 Days
--- NOTE | 2018-06-06 01:36 | XRay Report ---
PROCEDURE: XR CHEST 1V AP TECHNIQUE: Chest radiograph single view. HISTORY: Chest Pain COMPARISONS: June 04, 2018 . FINDINGS: Heart: The heart is enlarged. Mediastinum/Vessels: Normal. Lungs/Pleural space: Normal. Bony thorax: No acute osseous abnormality. Life support devices: None. IMPRESSION: There is cardiomegaly. The lungs are clear and expanded.. This document is electronically signed by Nicolas Bell MD. , June 06 2018 01:33:30 AM ET
[2018-06-06] MEDS ORDERED: D50W (25GM) Syringe IV PRN (01:37)
[2018-06-06] MEDS ORDERED: D50W (25GM) Vial IV ONE (01:37)
[2018-06-06 01:42] LABS: INR 2.61 (0.87-1.13)
[2018-06-06 01:43] LABS: Partial Thromboplastin Time 40.3 Sec. (24.2-36.6)
--- NOTE | 2018-06-06 02:23 | Cat Scan Report ---
PROCEDURE: CT HEAD/BRAIN WO CON TECHNIQUE: Computerized tomography of the head was performed without contrast material. CT DOSE LENGTH PRODUCT: mGycm HISTORY: ams COMPARISONS: None . FINDINGS: Skull and scalp: Normal . Paranasal sinuses: Normal . Ventricles and subarachnoid spaces: There is mild central and cortical atrophy. There is no hydrocep halus or asymmetry. . Cerebrum: No evidence of hemorrhage, acute infarction or mass . There is chronic deep white matter i schemic gliosis. Cerebellum and brainstem: No evidence of hemorrhage, acute infarction or mass . Vasculature: There is calcified plaque in the vertebral arteries and the cavernous portions of inter nal carotid arteries. . IMPRESSION: There are chronic involutional and ischemic changes. There is no acute abnormality. . This document is electronically signed by Nicolas Bell MD., June 06 2018 02:22:28 AM ET
--- NOTE | 2018-06-06 03:34 | Cat Scan Report ---
PROCEDURE: CT ANGIO CHEST TECHNIQUE: A CT angiogram was performed following the intravenous injection of iodinated contrast. S agittal, coronal, and rotational MIP reconstructions were reviewed. HISTORY: cp dyspnea COMPARISONS: Chest x-ray 06/06/2018 FINDINGS: The heart is markedly enlarged. There is no evidence of pericardial effusion. There is aneurysmal dil atation of the ascending aorta which measures 4.5 cm in diameter. Is no evidence of dissection. There is no evidence of pulmonary embolus. The lungs are not overtly congested. The lungs reveal very mild interstitial prominence. Interstitial edema is not suspected. There are no infiltrates or effusions. There is no evidence of adenopathy. In the upper abdomen the adrenal glands appear normal. The skele jag structures reveal multilevel disc degeneration at the lateral spine. At the thoracic inlet the th yroid gland appears normal. IMPRESSION: No evidence of pulmonary embolus, aortic dissection, or vascular congestion. Cardiomegaly with aneurysmal dilatation of the ascending aorta. No evidence of aortic dissection.. Mild interstitial changes. No acute process in the chest otherwise. This document is electronically signed by Romeo Michael MD., June 06 2018 03:32:54 AM ET
[2018-06-06] MEDS ORDERED: D5W 1,000 ML IV ONE (03:39)
[2018-06-06] MEDS ORDERED: D5W 1,000 ML IV SCH (04:00)
[2018-06-06 08:12] VITALS: BP 145/73
== END 2018-06-06 09:15 | disposition home or self-care (01) ==
LOC: ED 23:07
DX: R07.89 Other chest pain (principal); R06.02 Shortness of breath; I48.91 Unspecified atrial fibrillation; I11.0 Hypertensive heart disease with heart failure; Z91.013 Allergy to seafood; Z95.1 Presence of aortocoronary bypass graft; Z90.49 Acquired absence of other specified parts of digestive tract; Z79.82 Long term (current) use of aspirin
CPT/HCPCS: 36415; 36569; 70450; 71045; 71275; 80048; 80162; 80164; 82962; 84484; 85025; 85379; 85610; 85730; 93005; 93010; 96361; 96374; 99284; G0480; J7070; Q9967; 80320

== ENCOUNTER 2018-06-06 18:54 | Emergency (ER) | payer MEDICARE ==
[2018-06-06 19:05] VITALS: BP 131/62
--- NOTE | 2018-06-06 19:08 | Emergency Department Report ---
Blank Doc - Documentation Documentation: This is a 72-year-old male that presents with chest pain and leg stiffness. Geoff ding was just discharged this morning by the ED provider. Also has some SOB. This initial assessment/diagnostic orders/clinical plan/treatment(s) is/are subject to change based on patient's health status, clinical progression and re- assessment by fellow clinical providers in the ED. Further treatment and workup at subsequent clinical providers discretion. Patient/guardians urged not to elope from the ED as their condition may be serious if not clinically assessed and managed. Initial orders include: 1- Patient sent to [facility] for further evaluation and treatment 2- labs 3- cXR
[2018-06-06 19:26] LABS: Basophils % (Auto) 0.8 % (0.0-1.8); Eosinophils # (Auto) 0.3 K/mm3 (0.0-0.4); Eosinophils % (Auto) 4.8 % (0.0-4.3); Hematocrit 29.8 % (35.5-45.6); Hemoglobin 9.6 gm/dl (11.8-15.2); Lymphocytes # (Auto) 1.4 K/mm3 (1.2-5.4); Lymphocytes % (Auto) 23.3 % (13.4-35.0); Mean Corpuscular HGB Conc 32 % (32-34); Mean Corpuscular Volume 73 fl (84-94); Monocytes # (Auto) 0.6 K/mm3 (0.0-0.8); Monocytes % (Auto) 10.2 % (0.0-7.3); Platelet Count 194 K/mm3 (140-440); Red Blood Count 4.07 M/mm3 (3.65-5.03); Red Cell Distribution Width 16.6 % (13.2-15.2)
[2018-06-06 19:34] LABS: INR 2.18 (0.87-1.13)
[2018-06-06 19:35] LABS: Partial Thromboplastin Time 40.5 Sec. (24.2-36.6)
[2018-06-06 19:50] LABS: Calcium 9.8 mg/dL (8.4-10.2)
--- NOTE | 2018-06-06 21:31 | XRay Report ---
PROCEDURE: XR CHEST ROUTINE 2V TECHNIQUE: PA and lateral chest radiographs were obtained. HISTORY: Chest Pain COMPARISONS: None. FINDINGS: Heart: Heart is enlarged. Mediastinum/Vessels: Normal. Lungs/Pleural space: Lungs are expanded and clear. There are no infiltrates, effusions or pneumothor aces.. Bony thorax: No acute osseous abnormality. IMPRESSION: There is no acute cardiopulmonary abnormality.. This document is electronically signed by Nicolas Bell MD., June 06 2018 09:29:31 PM ET
--- NOTE | 2018-06-06 22:08 | Emergency Department Report ---
ED General Adult HPI - General Chief complaint: Extremity Problem,Nontraumatic Stated complaint: LEG/CHEST PAIN Time Seen by Provider: 06/06/18 21:49 Source: patient Mode of arrival: Ambulatory Limitations: No Limitations - History of Present Illness Initial comments: Mr. Hadley is a 72 yo male with hx of bipolar disorder, hypertension, atrial fibrillation, DVT, COPD presents with bilateral foot pain. He states that he has pain at the ball of foot. He desires pain medication. I have seen this gentleman several times in the last several months. I've spoken with his daughter at length regarding his multiple presentations. No other concerns. -: Gradual, week(s) (several) Location: lower extremity Severity scale (0 -10): 0 Consistency: constant Improves with: none Worsens with: none Associated Symptoms: confusion - Related Data Home Medications Medication Instructions Recorded Confirmed Last Taken Metoprolol [Lopressor TAB] 50 mg PO TID 06/06/18 06/06/18 Unknown Previous Rx's Medication Instructions Recorded Last Taken Type Furosemide [Lasix TAB] 40 mg PO BID #30 tablet 05/30/18 05/30/18 Rx Furosemide [Lasix TAB] 40 mg PO BID #60 tablet 05/31/18 Unknown Rx Aspirin [Aspirin BABY CHEW TAB] 81 mg PO QDAY #30 tab.chew 06/01/18 06/05/18 10:00 Rx Digoxin [Lanoxin] 0.25 mg PO DAILY@1700 #30 tablet 06/01/18 Unknown Rx Divalproex ER [Depakote ER] 500 mg PO BID #60 tablet 06/01/18 06/05/18 22:00 Rx Losartan [Cozaar] 25 mg PO QDAY #30 tablet 06/01/18 Unknown Rx Mirtazapine [Remeron] 7.5 mg PO QHS #14 tablet 06/01/18 06/05/18 22:00 Rx OLANzapine [ZyPREXA] 5 mg PO BID #60 tablet 06/01/18 Unknown Rx Rivaroxaban [Xarelto] 20 mg PO QDAY #30 tablet 06/01/18 Unknown Rx Tamsulosin [Flomax] 0.4 mg PO DAILY #30 capsule 06/01/18 Unknown Rx Allergies Allergy/AdvReac Type Severity Reaction Status Date / Time shellfish derived Allergy Itching Verified 06/05/18 18:43 ED Review of Systems ROS: Stated complaint: LEG/CHEST PAIN Other details as noted in HPI Comment: All other systems reviewed and negative Constitutional: denies: fever, malaise Respiratory: denies: cough ED Past Medical Hx - Past Medical History Previous Medical History?: Yes Hx Hypertension: Yes Hx CVA: Yes (2011) Hx Heart Attack/AMI: Yes Hx Congestive Heart Failure: Yes Hx Deep Vein Thrombosis: No Hx Liver Disease: No Hx Renal Disease: No Hx Arthritis: No Hx Seizures: No Hx Psychiatric Treatment: Yes (Bipolar,) Hx Asthma: No Hx Tuberculosis: No Hx Dementia: No Hx HIV: No Additional medical history: Afib, - Surgical History Past Surgical History?: Yes Hx Coronary Stent: Yes (x2) Hx Open Heart Surgery: No Hx Pacemaker: No Hx Internal Defibrillator: No Hx Cholecystectomy: Yes Hx Appendectomy: No Additional Surgical History: Cardiac stents, Stent in Rt. leg - Social History Smoking Status: Unknown if ever smoked Substance Use Type: None - Medications Home Medications: Home Medications Medication Instructions Recorded Confirmed Last Taken Type Furosemide [Lasix TAB] 40 mg PO BID #30 tablet 05/30/18 05/31/18 05/30/18 Rx Furosemide [Lasix TAB] 40 mg PO BID #60 tablet 05/31/18 06/06/18 Unknown Rx Aspirin [Aspirin BABY CHEW TAB] 81 mg PO QDAY #30 tab.chew 06/01/18 06/06/18 06/05/18 10:00 Rx Digoxin [Lanoxin] 0.25 mg PO DAILY@1700 #30 tablet 06/01/18 06/06/18 Unknown Rx Divalproex ER [Depakote ER] 500 mg PO BID #60 tablet 06/01/18 06/06/18 06/05/18 22:00 Rx Losartan [Cozaar] 25 mg PO QDAY #30 tablet 06/01/18 06/06/18 Unknown Rx Mirtazapine [Remeron] 7.5 mg PO QHS #14 tablet 06/01/18 06/06/18 06/05/18 22:00 Rx OLANzapine [ZyPREXA] 5 mg PO BID #60 tablet 06/01/18 06/06/18 Unknown Rx Rivaroxaban [Xarelto] 20 mg PO QDAY #30 tablet 06/01/18 06/06/18 Unknown Rx Tamsulosin [Flomax] 0.4 mg PO DAILY #30 capsule 06/01/18 06/06/18 Unknown Rx Metoprolol [Lopressor TAB] 50 mg PO TID 06/06/18 06/06/18 Unknown History ED Physical Exam - General Limitations: No Limitations General appearance: alert, in no apparent distress - Head Head exam: Present: atraumatic, normocephalic - Eye Eye exam: Present: normal appearance - ENT ENT exam: Present: mucous membranes moist - Neck Neck exam: Present: normal inspection, full ROM - Respiratory Respiratory exam: Present: normal lung sounds bilaterally. Absent: respiratory distress, wheezes, rales, rhonchi - Cardiovascular Cardiovascular Exam: Present: regular rate, normal rhythm, normal heart sounds. Absent: systolic murmur, diastolic murmur, rubs, gallop - GI/Abdominal GI/Abdominal exam: Present: soft, normal bowel sounds. Absent: distended, tenderness, guarding, rebound - Rectal Rectal exam: Present: deferred - Extremities Exam Extremities exam: Present: pedal edema, other (no evidence of injury) - Back Exam Back exam: Present: normal inspection - Neurological Exam Neurological exam: Present: alert, other (oriented to name and place poor insight) - Psychiatric Psychiatric exam: Present: normal affect, normal mood - Skin Skin exam: Present: warm, dry, intact, normal color. Absent: rash ED Course Vital Signs 06/06/18 19:04 Temperature 98.7 F Pulse Rate 85 Respiratory 16 Rate Blood Pressure 131/62 O2 Sat by Pulse 100 Oximetry ED Medical Decision Making - Lab Data Result diagrams: 06/06/18 19:13 06/06/18 19:13 Laboratory Results - last 24 hr 06/06/18 06/06/18 06/06/18 19:13 19:13 19:13 WBC 5.9 RBC 4.07 Hgb 9.6 L Hct 29.8 L MCV 73 L MCH 24 L MCHC 32 RDW 16.6 H Plt Count 194 Lymph % (Auto) 23.3 [place] % (Auto) 10.2 H Eos % (Auto) 4.8 H Baso % (Auto) 0.8 Lymph # 1.4 [place] # 0.6 Eos # 0.3 Baso # 0.0 Seg Neutrophils % 60.9 Seg Neutrophils # 3.6 PT 25.7 H INR 2.18 H APTT 40.5 H Sodium 140 Potassium 4.4 Chloride 102.3 Carbon Dioxide 25 Anion Gap 17 BUN 27 H Creatinine 1.6 H Estimated GFR 52 BUN/Creatinine Ratio 17 Glucose 117 H Calcium 9.8 Troponin T 0.016 - Medical Decision Making Mr. Hadley presents with concern of foot pain. Hx of DVT. No evidence of injury. Mr. Hadley appears to have psychiatric illness with likely superimposed dementia. According to EMR, he has had several psychiatric hospitalizations at [facility]. Dc'd home. He is calm and cooperative at this time. Critical care attestation.: If time is entered above; I have spent that time in minutes in the direct care of this critically ill patient, excluding procedure time. ED Disposition Clinical Impression: Leg pain, Bipolar depression Disposition: DC-01 TO HOME OR SELFCARE Is pt being admited?: No Does the pt Need Aspirin: No Condition: Stable Referrals: SAAD MAK MD [Primary Care Provider] - 3-5 Days
[2018-06-06] MEDS ORDERED: TYLENOL PO ONE (22:14)
== END 2018-06-06 22:33 | disposition home or self-care (01) ==
LOC: ED 18:54
DX: M79.672 Pain in left foot (principal); M79.671 Pain in right foot; F31.9 Bipolar disorder, unspecified; I10 Essential (primary) hypertension; I25.2 Old myocardial infarction
CPT/HCPCS: 36415; 71046; 80048; 84484; 85025; 85610; 85730

== ENCOUNTER 2018-06-14 16:50 | Emergency (ER) | payer MEDICARE ==
--- NOTE | 2018-06-14 17:06 | Emergency Department Report ---
Blank Doc - Documentation Documentation: This is a 72-year-old male that presents with bilateral leg pains. Patient has history of same symptoms. This initial assessment/diagnostic orders/clinical plan/treatment(s) is/are subject to change based on patient's health status, clinical progression and re- assessment by fellow clinical providers in the ED. Further treatment and workup at subsequent clinical providers discretion. Patient/guardians urged not to elope from the ED as their condition may be serious if not clinically assessed and managed. Initial orders include: 1- Patient sent to [facility] for further evaluation and treatment 2- labs has been recently taken on several occasions
[2018-06-14 17:07] VITALS: BP 136/60
== END 2018-06-14 22:01 | disposition left against medical advice (07) ==
LOC: ED 16:50
DX: M79.604 Pain in right leg (principal); Z53.21 Procedure and treatment not carried out due to patient leaving prior to being seen by health care provider

== ENCOUNTER 2018-06-15 18:56 | Emergency (ER) | payer MEDICARE ==
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
[2018-06-15 19:50] LABS: Hematocrit 30.6 % (35.5-45.6); Hemoglobin 9.8 gm/dl (11.8-15.2); Mean Corpuscular HGB Conc 32 % (32-34); Mean Corpuscular Volume 73 fl (84-94); Platelet Count 193 K/mm3 (140-440); Red Blood Count 4.19 M/mm3 (3.65-5.03); Red Cell Distribution Width 16.3 % (13.2-15.2)
[2018-06-15] MEDS ORDERED: LOPRESSOR PO SCH (20:00)
[2018-06-15] MEDS ORDERED: BABY ASPIRIN PO SCH (20:00)
[2018-06-15] MEDS ORDERED: COZAAR PO SCH (20:00)
[2018-06-15 20:04] LABS: INR 1.22 (0.87-1.13)
[2018-06-15 20:12] LABS: BUN/Creatinine Ratio 19; Blood Urea Nitrogen 23 mg/dL (9-20); Calcium 9.3 mg/dL (8.4-10.2); Hemolysis Index 5
--- NOTE | 2018-06-15 20:20 | Cat Scan Report ---
PROCEDURE: CT HEAD/BRAIN WO CON TECHNIQUE: Computerized tomography of the head was performed without contrast material. CT DOSE LENGTH PRODUCT: 920.5 mGycm HISTORY: sleepy, on anticoagulation COMPARISONS: June 06, 2018 . FINDINGS: Skull and scalp: Normal . Paranasal sinuses: A 1.3 cm sclerotic lesion is noted in the right frontal sinus consistent with an osteoma. . Ventricles and subarachnoid spaces: Prominent consistent with cerebral atrophy appropriate for patie nt's age. . Cerebrum: No evidence of hemorrhage, acute infarction or mass . Cerebellum and brainstem: No evidence of hemorrhage, acute infarction or mass . Vasculature: Atherosclerotic calcification is noted involving internal carotid and vertebral arterie s. . Other: None . ASPECTS: 10 IMPRESSION: No acute intracranial abnormality Osteoma right frontal sinus. This document is electronically signed by Nahun Garcia MD., June 15 2018 08:18:23 PM ET
--- NOTE | 2018-06-15 20:27 | XRay Report ---
PROCEDURE: XR CHEST 1V AP TECHNIQUE: Frontal portable view of the chest HISTORY: cp COMPARISONS: Chest x-ray dated June 06, 2018. The report of that study is not available for review a t the time of this dictation. FINDINGS: There is prominence of the interstitial markings in both lungs similar in appearance to the previous study. There is increased density in the left lung base which may represent atelectasis, infiltrate or artif act. There is no evidence of pneumothorax and no definite evidence of pleural effusion pleural fluid colle ction. The cardiac silhouette is enlarged similar in appearance to the previous study. The thoracic aorta is tortuous. The bony structures are unremarkable. IMPRESSION: 1. Atelectasis versus infiltrate versus artifact left lung base. 2. Stable enlarged cardiac silhouette. PA and lateral views of the chest were CT chest may be helpful for further evaluation. This document is electronically signed by Jenelle Rodriguez MD., June 15 2018 08:26:08 PM ET
[2018-06-15 20:58] VITALS: BP 119/62
[2018-06-15] MEDS ORDERED: LASIX PO SCH (22:00)
[2018-06-16] MEDS ORDERED: XARELTO PO SCH (10:00)
== END 2018-06-15 20:55 | disposition home or self-care (01) ==
LOC: ED 18:56
DX: R07.89 Other chest pain (principal); M79.604 Pain in right leg; G89.29 Other chronic pain; I11.0 Hypertensive heart disease with heart failure; I50.9 Heart failure, unspecified; I25.2 Old myocardial infarction; F31.9 Bipolar disorder, unspecified; Z95.5 Presence of coronary angioplasty implant and graft; Z86.73 Personal history of transient ischemic attack (TIA), and cerebral infarction without residual deficits; Z90.49 Acquired absence of other specified parts of digestive tract; Z79.899 Other long term (current) drug therapy; Z91.013 Allergy to seafood
CPT/HCPCS: 36415; 70450; 71045; 80048; 80162; 80164; 82550; 83735; 84484; 85027; 85610; 93005; 93010; 99285; G0480; 80320

== ENCOUNTER 2018-06-15 23:47 | Emergency (ER) | payer MEDICARE ==
[2018-06-16 00:51] VITALS: BP 129/60
== END 2018-06-16 | disposition left against medical advice (07) ==
LOC: ED 23:47
DX: M79.89 Other specified soft tissue disorders (principal); R06.00 Dyspnea, unspecified; Z53.21 Procedure and treatment not carried out due to patient leaving prior to being seen by health care provider

== ENCOUNTER 2018-06-16 21:49 | Emergency (ER) | payer MEDICARE ==
[2018-06-16 22:56] VITALS: BP 121/56
== END 2018-06-17 09:11 ==
LOC: ED 21:49
DX: M79.89 Other specified soft tissue disorders (principal); Z53.21 Procedure and treatment not carried out due to patient leaving prior to being seen by health care provider

== ENCOUNTER 2018-06-18 10:47 | Emergency (ER) | payer MEDICARE | END 2018-06-18 15:36 | disposition left against medical advice (07) | LOC: ED 10:47 | DX: M79.604 Pain in right leg (principal); M79.605 Pain in left leg; Z53.21 Procedure and treatment not carried out due to patient leaving prior to being seen by health care provider ==

== ENCOUNTER 2018-06-18 18:56 | Emergency (ER) | payer MEDICARE ==
--- NOTE | 2018-06-19 01:46 | Emergency Department Report ---
ED Extremity Problem HPI - General Chief complaint: Extremity Injury, Lower Stated complaint: LEGS SWOLLEN Time Seen by Provider: 06/19/18 01:42 Source: patient Mode of arrival: Ambulatory Limitations: No Limitations - History of Present Illness Initial comments: 72-year-old -[place] male that is well known here in the emergency room comes in today for his chronic bilateral lower legs. Patient states that he was at work today and has been on his legs all day so he comes in the afternoon at the emergency room to be evaluated. Patient has no other complaints. When I discussed the patient is homeless and states yes and that he would like to be evaluated by psychologist social. Patient reports he feels 110% better after having a shower here. Patient reports that his leg pain is similar that he's had in the past. Patient denies any shortness of breathing chest pain no nausea no vomiting or fevers. Patient denies any falls. MD Complaint: extremity pain, extremity swelling -: month(s) Location: bilateral lower extremity History of Same: Yes -: Yes myalgia, Yes arthralgia Radiation: none Severity scale (0 -10): 5 Quality: aching Consistency: intermittent Improves with: rest Worsens with: walking Associated Symptoms: denies other symptoms. denies: chest pain, shortness of breath, fever - Related Data Home Medications Medication Instructions Recorded Confirmed Last Taken Metoprolol [Lopressor TAB] 50 mg PO TID 06/06/18 06/06/18 Unknown Previous Rx's Medication Instructions Recorded Last Taken Type Furosemide [Lasix TAB] 40 mg PO BID #30 tablet 05/30/18 05/30/18 Rx Furosemide [Lasix TAB] 40 mg PO BID #60 tablet 05/31/18 Unknown Rx Aspirin [Aspirin BABY CHEW TAB] 81 mg PO QDAY #30 tab.chew 06/01/18 06/05/18 10:00 Rx Digoxin [Lanoxin] 0.25 mg PO DAILY@1700 #30 tablet 06/01/18 Unknown Rx Divalproex ER [Depakote ER] 500 mg PO BID #60 tablet 06/01/18 06/05/18 22:00 Rx Losartan [Cozaar] 25 mg PO QDAY #30 tablet 06/01/18 Unknown Rx Mirtazapine [Remeron] 7.5 mg PO QHS #14 tablet 06/01/18 06/05/18 22:00 Rx OLANzapine [ZyPREXA] 5 mg PO BID #60 tablet 06/01/18 Unknown Rx Rivaroxaban [Xarelto] 20 mg PO QDAY #30 tablet 06/01/18 Unknown Rx Tamsulosin [Flomax] 0.4 mg PO DAILY #30 capsule 06/01/18 Unknown Rx Allergies Allergy/AdvReac Type Severity Reaction Status Date / Time shellfish derived Allergy Itching Verified 06/18/18 11:07 ED Review of Systems ROS: Stated complaint: LEGS SWOLLEN Other details as noted in HPI Comment: All other systems reviewed and negative Musculoskeletal: myalgia ED Past Medical Hx - Past Medical History Hx Hypertension: Yes Hx CVA: Yes (2011) Hx Heart Attack/AMI: Yes Hx Congestive Heart Failure: Yes Hx Deep Vein Thrombosis: No Hx Liver Disease: No Hx Renal Disease: No Hx Arthritis: No Hx Seizures: No Hx Psychiatric Treatment: Yes (Bipolar,) Hx Asthma: No Hx Tuberculosis: No Hx Dementia: No Hx HIV: No Additional medical history: Afib, - Surgical History Hx Coronary Stent: Yes (x2) Hx Open Heart Surgery: No Hx Pacemaker: No Hx Internal Defibrillator: No Hx Cholecystectomy: Yes Hx Appendectomy: No Additional Surgical History: Cardiac stents, Stent in Rt. leg - Social History Smoking Status: Unknown if ever smoked Substance Use Type: None - Medications Home Medications: Home Medications Medication Instructions Recorded Confirmed Last Taken Type Furosemide [Lasix TAB] 40 mg PO BID #30 tablet 05/30/18 05/31/18 05/30/18 Rx Furosemide [Lasix TAB] 40 mg PO BID #60 tablet 05/31/18 06/06/18 Unknown Rx Aspirin [Aspirin BABY CHEW TAB] 81 mg PO QDAY #30 tab.chew 06/01/18 06/06/18 06/05/18 10:00 Rx Digoxin [Lanoxin] 0.25 mg PO DAILY@1700 #30 tablet 06/01/18 06/06/18 Unknown Rx Divalproex ER [Depakote ER] 500 mg PO BID #60 tablet 06/01/18 06/06/18 06/05/18 22:00 Rx Losartan [Cozaar] 25 mg PO QDAY #30 tablet 06/01/18 06/06/18 Unknown Rx Mirtazapine [Remeron] 7.5 mg PO QHS #14 tablet 04/02/0706/06/18 06/05/18 22:00 Rx OLANzapine [ZyPREXA] 5 mg PO BID #60 tablet 06/01/18 06/06/18 Unknown Rx Rivaroxaban [Xarelto] 20 mg PO QDAY #30 tablet 06/01/18 06/06/18 Unknown Rx Tamsulosin [Flomax] 0.4 mg PO DAILY #30 capsule 06/01/18 06/06/18 Unknown Rx Metoprolol [Lopressor TAB] 50 mg PO TID 06/06/18 06/06/18 Unknown History ED Physical Exam - General Limitations: No Limitations General appearance: alert, in no apparent distress - Head Head exam: Present: atraumatic, normocephalic - Eye Eye exam: Present: normal appearance, EOMI - ENT ENT exam: Present: mucous membranes moist - Neck Neck exam: Present: normal inspection - Respiratory Respiratory exam: Present: normal lung sounds bilaterally. Absent: respiratory distress - Cardiovascular Cardiovascular Exam: Present: regular rate, normal rhythm. Absent: systolic murmur, diastolic murmur, rubs, gallop - GI/Abdominal GI/Abdominal exam: Present: soft, normal bowel sounds. Absent: distended, tenderness - Extremities Exam Extremities exam: Present: pedal edema (nonpitting) - Neurological Exam Neurological exam: Present: alert, oriented X3 - Psychiatric Psychiatric exam: Present: normal affect, normal mood - Skin Skin exam: Present: warm, dry, intact, normal color. Absent: rash ED Course Vital Signs 06/18/18 06/18/18 20:40 23:28 Temperature 99 F Pulse Rate 95 H 95 H Respiratory 18 16 Rate Blood Pressure 114/60 Blood Pressure 122/65 [Left] O2 Sat by Pulse 100 99 Oximetry ED Medical Decision Making - Medical Decision Making Patient has been evaluated by this provider in fast track. Recommend to follow-up with Department of aging psychologist social. Information be given and discharge summary. Critical care attestation.: If time is entered above; I have spent that time in minutes in the direct care of this critically ill patient, excluding procedure time. ED Disposition Clinical Impression: Unable to function independently, Medical non-compliance Leg pain Qualifiers: Laterality: bilateral Qualified Code(s): M79.604 - Pain in right leg Disposition: DC-01 TO HOME OR SELFCARE Is pt being admited?: No Does the pt Need Aspirin: No Condition: Stable Instructions: Arthralgia (ED) Additional Instructions: Please follow up her primary care provider. Discussed patient to call psychologist social information will be given to patient for Department of health and human services. Department of aging [address] [facility] [id number], [place] [address] Referrals: [facility] MD ESTRELLITA [Primary Care Provider] - 3-5 Days MICHAEL DOTY MD [Staff Physician] - 3-5 Days ARNIE CUEVA MD [Staff Physician] - 3-5 Days VICENTE BRYANT MD [Staff Physician] - 3-5 Days
[2018-06-19 02:30] VITALS: BP 120/84
== END 2018-06-19 02:31 | disposition home or self-care (01) ==
LOC: ED 18:56
DX: M79.604 Pain in right leg (principal); M79.605 Pain in left leg; I11.0 Hypertensive heart disease with heart failure; I50.9 Heart failure, unspecified; I25.2 Old myocardial infarction; Z86.73 Personal history of transient ischemic attack (TIA), and cerebral infarction without residual deficits; Z95.1 Presence of aortocoronary bypass graft; Z90.49 Acquired absence of other specified parts of digestive tract; Z79.82 Long term (current) use of aspirin; Z91.013 Allergy to seafood
CPT/HCPCS: 99282

== ENCOUNTER 2018-06-19 20:58 | Emergency (ER) | payer MEDICARE ==
--- NOTE | 2018-06-19 21:43 | Emergency Department Report ---
Chief Complaint: Extremity Problem,Nontraumatic Stated Complaint: LEG PAIN Time Seen by Provider: 06/19/18 21:41 - HPI History of Present Illness: pt states that his legs "feel like they have gotten bigger" states that he forgot his medication this morning, states he took it all at 8 PM tonight denies any other sx pt was evaluated twice yesterday for the same sx MSE screening note: Focused history performed.
[2018-06-19 21:44] VITALS: BP 95/64
--- NOTE | 2018-06-20 03:04 | Emergency Department Report ---
ED Extremity Problem HPI - General Chief complaint: Extremity Problem,Nontraumatic Stated complaint: LEG PAIN Time Seen by Provider: 06/19/18 21:41 Source: patient, EMS Mode of arrival: Ambulatory Limitations: No Limitations - History of Present Illness Initial comments: 72-year-old male that well known to this provider comes in for evaluation of his legs. Patient complains of chronic bilateral leg swelling. Patient was seen by this provider yesterday for the same complaint. Patient reports nothing has changed. He reports that when he walks on his legs constantly they swell. Patient denies any fall no chest pain or shortness of breathing. MD Complaint: extremity swelling Location: bilateral lower extremity History of Same: Yes Associated Symptoms: denies other symptoms - Related Data Home Medications Medication Instructions Recorded Confirmed Last Taken Metoprolol [Lopressor TAB] 50 mg PO TID 06/06/18 06/06/18 Unknown Previous Rx's Medication Instructions Recorded Last Taken Type Furosemide [Lasix TAB] 40 mg PO BID #30 tablet 05/30/18 05/30/18 Rx Furosemide [Lasix TAB] 40 mg PO BID #60 tablet 05/31/18 Unknown Rx Aspirin [Aspirin BABY CHEW TAB] 81 mg PO QDAY #30 tab.chew 06/01/18 06/05/18 10:00 Rx Digoxin [Lanoxin] 0.25 mg PO DAILY@1700 #30 tablet 06/01/18 Unknown Rx Divalproex ER [Depakote ER] 500 mg PO BID #60 tablet 06/01/18 06/05/18 22:00 Rx Losartan [Cozaar] 25 mg PO QDAY #30 tablet 06/01/18 Unknown Rx Mirtazapine [Remeron] 7.5 mg PO QHS #14 tablet 06/01/18 06/05/18 22:00 Rx OLANzapine [ZyPREXA] 5 mg PO BID #60 tablet 06/01/18 Unknown Rx Rivaroxaban [Xarelto] 20 mg PO QDAY #30 tablet 06/01/18 Unknown Rx Tamsulosin [Flomax] 0.4 mg PO DAILY #30 capsule 06/01/18 Unknown Rx Allergies Allergy/AdvReac Type Severity Reaction Status Date / Time shellfish derived Allergy Itching Verified 06/18/18 11:07 ED Review of Systems ROS: Stated complaint: LEG PAIN Other details as noted in HPI Comment: All other systems reviewed and negative ED Past Medical Hx - Past Medical History Previous Medical History?: Yes Hx Hypertension: Yes Hx CVA: Yes (2012) Hx Heart Attack/AMI: Yes Hx Congestive Heart Failure: Yes Hx Deep Vein Thrombosis: No Hx Liver Disease: No Hx Renal Disease: No Hx Arthritis: No Hx Seizures: No Hx Psychiatric Treatment: Yes (Bipolar,) Hx Asthma: No Hx Tuberculosis: No Hx Dementia: No Hx HIV: No Additional medical history: Afib, - Surgical History Past Surgical History?: Yes Hx Coronary Stent: Yes (x2) Hx Open Heart Surgery: No Hx Pacemaker: No Hx Internal Defibrillator: No Hx Cholecystectomy: Yes Hx Appendectomy: No Additional Surgical History: Cardiac stents, Stent in Rt. leg - Social History Smoking Status: Never Smoker Substance Use Type: None - Medications Home Medications: Home Medications Medication Instructions Recorded Confirmed Last Taken Type Furosemide [Lasix TAB] 40 mg PO BID #30 tablet 05/30/18 05/31/18 05/30/18 Rx Furosemide [Lasix TAB] 40 mg PO BID #60 tablet 05/31/18 06/06/18 Unknown Rx Aspirin [Aspirin BABY CHEW TAB] 81 mg PO QDAY #30 tab.chew 06/01/18 06/06/18 06/05/18 10:00 Rx Digoxin [Lanoxin] 0.25 mg PO DAILY@1700 #30 tablet 06/01/18 06/06/18 Unknown Rx Divalproex ER [Depakote ER] 500 mg PO BID #60 tablet 06/01/18 06/06/18 06/05/18 22:00 Rx Losartan [Cozaar] 25 mg PO QDAY #30 tablet 06/01/18 06/06/18 Unknown Rx Mirtazapine [Remeron] 7.5 mg PO QHS #14 tablet 06/01/18 06/06/18 06/05/18 22:00 Rx OLANzapine [ZyPREXA] 5 mg PO BID #60 tablet 06/01/18 06/06/18 Unknown Rx Rivaroxaban [Xarelto] 20 mg PO QDAY #30 tablet 06/01/18 06/06/18 Unknown Rx Tamsulosin [Flomax] 0.4 mg PO DAILY #30 capsule 06/01/18 06/06/18 Unknown Rx Metoprolol [Lopressor TAB] 50 mg PO TID 06/06/18 06/06/18 Unknown History ED Physical Exam - General Limitations: No Limitations General appearance: alert, in no apparent distress - Head Head exam: Present: atraumatic, normocephalic - ENT ENT exam: Present: mucous membranes moist - Respiratory Respiratory exam: Present: normal lung sounds bilaterally. Absent: respiratory distress - Cardiovascular Cardiovascular Exam: Present: regular rate, normal rhythm. Absent: systolic murmur, diastolic murmur, rubs, gallop - Expanded Lower Extremity Exam Left Lower Leg exam: Present: swelling Neuro vascular tendon exam: Present: no vascular compromise Right Lower Leg exam: Present: swelling Foot/Toe exam: Present: swelling Neuro vascular tendon exam: Present: no vascular compromise Gait: Positive: observed and normal - Neurological Exam Neurological exam: Present: alert, oriented X3 ED Course Vital Signs 06/19/18 21:41 Temperature 98.1 F Pulse Rate 80 Respiratory 18 Rate Blood Pressure 95/64 O2 Sat by Pulse 100 Oximetry ED Medical Decision Making - Medical Decision Making Patient comes in for chronic leg edema. Patient is to follow-up with primary care provider. Critical care attestation.: If time is entered above; I have spent that time in minutes in the direct care of this critically ill patient, excluding procedure time. ED Disposition Clinical Impression: Dependent edema Disposition: DC-01 TO HOME OR SELFCARE Is pt being admited?: No Does the pt Need Aspirin: No Condition: Stable Instructions: Leg Edema (ED) Additional Instructions: Follow-up with her primary care provider. Referrals: HAO AVELAR MD [Primary Care Provider] - 3-5 Days
== END 2018-06-20 03:00 | disposition home or self-care (01) ==
LOC: ED 20:58
DX: R60.9 Edema, unspecified (principal); I11.0 Hypertensive heart disease with heart failure; I50.9 Heart failure, unspecified; Z86.73 Personal history of transient ischemic attack (TIA), and cerebral infarction without residual deficits; Z95.1 Presence of aortocoronary bypass graft; Z90.49 Acquired absence of other specified parts of digestive tract; Z79.82 Long term (current) use of aspirin; Z91.013 Allergy to seafood
CPT/HCPCS: 99283

== ENCOUNTER 2018-06-20 13:01 | Emergency (ER) | payer MEDICARE ==
[2018-06-20 14:13] LABS: Basophils # (Auto) 0.1 K/mm3 (0.0-0.1); Basophils % (Auto) 1.4 % (0.0-1.8); Eosinophils # (Auto) 0.3 K/mm3 (0.0-0.4); Eosinophils % (Auto) 5.1 % (0.0-4.3); Hemoglobin 9.6 gm/dl (11.8-15.2); Lymphocytes # (Auto) 1.1 K/mm3 (1.2-5.4); Lymphocytes % (Auto) 18.6 % (13.4-35.0); Mean Corpuscular HGB Conc 32 % (32-34); Mean Corpuscular Volume 72 fl (84-94); Monocytes # (Auto) 0.6 K/mm3 (0.0-0.8); Monocytes % (Auto) 11.3 % (0.0-7.3); Platelet Count 188 K/mm3 (140-440); Red Blood Count 4.17 M/mm3 (3.65-5.03); Red Cell Distribution Width 16.7 % (13.2-15.2)
--- NOTE | 2018-06-20 14:40 | Emergency Department Report ---
HPI - General Chief Complaint: Weakness Time Seen by Provider: 06/20/18 14:09 - HPI HPI: 72-year-old -[place] male, who is well-known to this emergency Department, presents to the emergency department with a complaint of continued bilateral leg pain and swelling. The patient has been here 3 days in a row. 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 He is awake and alert. The pain is to the area just above the ankles and down to his feet. He has a past medical history of CHF, CVA, coronary artery disease, hypertension, paroxysmal A. fib, bipolar disorder. Patient says that he was hoping to see the social media editor for help with placement but he was unable to see her yesterday. Patient says that he is compliant with his medications. ED Past Medical Hx - Past Medical History Previous Medical History?: Yes Hx Hypertension: Yes Hx CVA: Yes (2012) Hx Heart Attack/AMI: Yes Hx Congestive Heart Failure: Yes Hx Deep Vein Thrombosis: No Hx Liver Disease: No Hx Renal Disease: No Hx Arthritis: No Hx Seizures: No Hx Psychiatric Treatment: Yes (Bipolar,) Hx Asthma: No Hx Tuberculosis: No Hx Dementia: No Hx HIV: No Additional medical history: Afib, - Surgical History Past Surgical History?: Yes Hx Coronary Stent: Yes (x2) Hx Open Heart Surgery: No Hx Pacemaker: No Hx Internal Defibrillator: No Hx Cholecystectomy: Yes Hx Appendectomy: No Additional Surgical History: Cardiac stents, Stent in Rt. leg - Social History Smoking Status: Never Smoker - Medications Home Medications: Home Medications Medication Instructions Recorded Confirmed Last Taken Type Furosemide [Lasix TAB] 40 mg PO BID #30 tablet 05/30/18 05/31/18 05/30/18 Rx Furosemide [Lasix TAB] 40 mg PO BID #60 tablet 05/31/18 06/06/18 Unknown Rx Aspirin [Aspirin BABY CHEW TAB] 81 mg PO QDAY #30 tab.chew 06/01/18 06/06/18 06/05/18 10:00 Rx Digoxin [Lanoxin] 0.25 mg PO DAILY@1700 #30 tablet 06/01/18 06/06/18 Unknown Rx Divalproex ER [Depakote ER] 500 mg PO BID #60 tablet 06/01/18 06/06/18 06/05/18 22:00 Rx Losartan [Cozaar] 25 mg PO QDAY #30 tablet 06/01/18 06/06/18 Unknown Rx Mirtazapine [Remeron] 7.5 mg PO QHS #14 tablet 06/01/18 06/06/18 06/05/18 22:00 Rx OLANzapine [ZyPREXA] 5 mg PO BID #60 tablet 06/01/18 06/06/18 Unknown Rx Rivaroxaban [Xarelto] 20 mg PO QDAY #30 tablet 06/01/18 06/06/18 Unknown Rx Tamsulosin [Flomax] 0.4 mg PO DAILY #30 capsule 06/01/18 06/06/18 Unknown Rx Metoprolol [Lopressor TAB] 50 mg PO TID 06/06/18 06/06/18 Unknown History ED Review of Systems ROS: Stated complaint: LEG PAIN/AMS Other details as noted in HPI Comment: All other systems reviewed and negative Constitutional: denies: chills, fever Eyes: denies: eye pain, vision change ENT: denies: ear pain, throat pain Respiratory: denies: cough, shortness of breath Cardiovascular: edema. denies: chest pain Gastrointestinal: denies: abdominal pain, vomiting Genitourinary: denies: dysuria, frequency Musculoskeletal: arthralgia, myalgia. denies: back pain Skin: denies: rash, lesions Neurological: denies: headache, numbness Physical Exam - Physical Exam Vital Signs: Vital Signs 06/20/18 13:27 Temperature 98.1 F Pulse Rate 68 Respiratory 20 Rate Blood Pressure 121/51 O2 Sat by Pulse 94 Oximetry Physical Exam: GENERAL: The patient is well-developed well-nourished. HENT: Normocephalic. Atraumatic. Patient has moist mucous membranes. EYES: Extraocular motions are intact. Pupils equal reactive to light bilaterally. NECK: Supple. Trachea is midline. CHEST/LUNGS: Clear to auscultation. There is no respiratory distress noted. HEART/CARDIOVASCULAR: Regular. There is no tachycardia. There is no murmur. ABDOMEN: Abdomen is soft, nontender. Patient has normal bowel sounds. There is no abdominal distention. SKIN: There is pitting edema to the bilateral lower extremities. NEURO: The patient is sleepy but once awake he is alert and oriented. The patient is cooperative. The patient has no focal neurologic deficits. The patient has normal speech. Cranial nerves II through XII grossly intact. MUSCULOSKELETAL: There is no tenderness or deformity. There is no limitation range of motion. There is no evidence of acute injury. ED Course Vital Signs 06/20/18 13:27 Temperature 98.1 F Pulse Rate 68 Respiratory 20 Rate Blood Pressure 121/51 O2 Sat by Pulse 94 Oximetry ED Medical Decision Making - Lab Data Result diagrams: 06/20/18 Unknown 06/20/18 Unknown - Radiology Data Radiology results: report reviewed, image reviewed interpreted by me: Chest x-ray does not show any acute process. There are no pleural effusions, obvious pneumonia and there is no pneumothorax. There is some pulmonary vascular congestion. PROCEDURE: VL VENOUS DUPLEX LE BILAT TECHNIQUE: Transverse longitudinal sonograms obtained with sheridan scale sonography. HISTORY: LE pain and swelling COMPARISONS: Bilateral lower extremity venous Doppler evaluation May 09, 2018 FINDINGS: The bilateral common femoral, superficial femoral, popliteal and visualized calf veins demonstrate flow with Doppler. Augmentation present. No new echogenic area identified. No acute deep venous thrombus. Bilateral reflux is noted at the popliteal veins The bilateral common femoral superficial femoral and popliteal veins demonstrate partial compression. Nonspecific finding which can indicate prior DVT and scarring. Subcutaneous edema noted. IMPRESSION: No acute deep venous thrombus identified. . This document is electronically signed by Shivam Whitfield MD., Jun 20 2018 05:17:35 PM ET Transcribed By: Dictated By: SHIVAM WHITFIELD MD Electronically Authenticated By: SHIVAM WHITFIELD MD Signed Date/Time: 06/20/18 1732 - Medical Decision Making Patient presents to the emergency department with a complaint of bilateral leg pain. The patient is homeless and does a lot walking each day. However he does have multiple comorbidities including CHF and has some pitting edema to the bilateral lower extremities. A venous Doppler ultrasound was done that did not show any signs of acute DVT. Patient does have elevated BNP level and he was given a dose of Lasix to start some diuresis. The patient was very sleepy but is arousable. The plan was going to be for the patient have a CT scan of the head without contrast and possible admission. 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 At this point the patient is awake, alert, calm and appropriate, able to answer all questions, and appears to have normal decision-making capacity. He was explained about the plan for further evaluation and possible admission, but the patient does not want to do so. He understands that leaving at this point due to worsening pain and swelling of the lower extremities, shortness of breath, following, debility. Despite all this, the patient still wants to leave and has signed out AGAINST MEDICAL ADVICE. - Differential Diagnosis Venous stasis, CHF, cellulitis Critical Care Time: No Critical care attestation.: If time is entered above; I have spent that time in minutes in the direct care of this critically ill patient, excluding procedure time. ED Disposition Clinical Impression: Bilateral lower extremity edema, Bilateral leg pain Disposition: - LEFT AGAINST MED ADVICE Is pt being admited?: No Condition: Stable Referrals: SAAD MAK MD [Primary Care Provider] - 3-5 Days Time of Disposition: 19:24
[2018-06-20 14:45] LABS: Alanine Aminotransferase 11 units/L (7-56); Albumin 3.4 g/dL (3.9-5); BUN/Creatinine Ratio 19; Blood Urea Nitrogen 25 mg/dL (9-20); Calcium 9.1 mg/dL (8.4-10.2); Hemolysis Index 38
[2018-06-20] MEDS ORDERED: LASIX IV ONE (15:55)
--- NOTE | 2018-06-20 16:15 | XRay Report ---
PROCEDURE: XR CHEST 1V AP TECHNIQUE: Portable AP upright chest x-ray HISTORY: SOB COMPARISONS: Prior chest x-ray 06/15/2018 FINDINGS: The heart remains diffusely enlarged. The upper lobe pulmonary vasculature mildly distended although sharply defined. No definite pulmonary edema pleural effusions or masses are identified. Minimal basi lar atelectasis is suspected. No infiltrates are seen. No acute bone abnormalities are identified. IMPRESSION: Cardiomegaly.. Mild pulmonary venous hypertension changes visualized. No pulmonary edema or pleural effusions identi fied. Minimal basilar atelectasis. No dense consolidations are seen. This document is electronically signed by Kenny Vera MD., Jun 20 2018 04:13:50 PM ET
[2018-06-20 17:01] VITALS: BP 123/61
--- NOTE | 2018-06-20 17:19 | Vascular Lab Report ---
PROCEDURE: VL VENOUS DUPLEX LE BILAT TECHNIQUE: Transverse longitudinal sonograms obtained with sheridan scale sonography. HISTORY: LE pain and swelling COMPARISONS: Bilateral lower extremity venous Doppler evaluation May 09, 2018 FINDINGS: The bilateral common femoral, superficial femoral, popliteal and visualized calf veins demonstrate fl ow with Doppler. Augmentation present. No new echogenic area identified. No acute deep venous thrombu s. Bilateral reflux is noted at the popliteal veins The bilateral common femoral superficial femoral and popliteal veins demonstrate partial compression. Nonspecific finding which can indicate prior DVT and scarring. Subcutaneous edema noted. IMPRESSION: No acute deep venous thrombus identified. . This document is electronically signed by Shivam Whitfield MD., Jun 20 2018 05:17:35 PM ET
== END 2018-06-20 16:53 | disposition left against medical advice (07) ==
LOC: ED 13:01
DX: R60.0 Localized edema (principal); M79.605 Pain in left leg; M79.604 Pain in right leg; I10 Essential (primary) hypertension; I25.2 Old myocardial infarction; F31.9 Bipolar disorder, unspecified
CPT/HCPCS: 36415; 71045; 80053; 83880; 85025; 93970

== ENCOUNTER 2018-06-21 02:38 | Emergency (ER) | payer MEDICARE ==
[2018-06-21 03:00] VITALS: BP 114/55
--- NOTE | 2018-06-21 03:53 | Emergency Department Report ---
ED General Adult HPI - General Chief complaint: Extremity Problem,Nontraumatic Stated complaint: LEG SWELLING/ROBERTO Source: patient Mode of arrival: Ambulatory Limitations: No Limitations - History of Present Illness Initial comments: Mr. Hadley is a 72 years old male, very familiar to the ER and the staff states patient is coming more frequent. The patient had history of congestive heart failure and bilateral lower extremity swelling. Patient presented to the ER complaining of bilateral leg pain and swelling. Patient is homeless and doing a lot of walking every day. Patient was seen yesterday and had a gallbladder ultrasound for his lower extremity which was negative for DVT. Patient is nontoxic and in no acute distress. Patient is answering question appropriately. - Related Data Home Medications Medication Instructions Recorded Confirmed Last Taken Metoprolol [Lopressor TAB] 50 mg PO TID 06/06/18 06/06/18 Unknown Previous Rx's Medication Instructions Recorded Last Taken Type Furosemide [Lasix TAB] 40 mg PO BID #30 tablet 05/30/18 05/30/18 Rx Furosemide [Lasix TAB] 40 mg PO BID #60 tablet 05/31/18 Unknown Rx Aspirin [Aspirin BABY CHEW TAB] 81 mg PO QDAY #30 tab.chew 06/01/18 06/05/18 10:00 Rx Digoxin [Lanoxin] 0.25 mg PO DAILY@1700 #30 tablet 06/01/18 Unknown Rx Divalproex ER [Depakote ER] 500 mg PO BID #60 tablet 06/01/18 06/05/18 22:00 Rx Losartan [Cozaar] 25 mg PO QDAY #30 tablet 06/01/18 Unknown Rx Mirtazapine [Remeron] 7.5 mg PO QHS #14 tablet 06/01/18 06/05/18 22:00 Rx OLANzapine [ZyPREXA] 5 mg PO BID #60 tablet 06/01/18 Unknown Rx Rivaroxaban [Xarelto] 20 mg PO QDAY #30 tablet 06/01/18 Unknown Rx Tamsulosin [Flomax] 0.4 mg PO DAILY #30 capsule 06/01/18 Unknown Rx Allergies Allergy/AdvReac Type Severity Reaction Status Date / Time shellfish derived Allergy Itching Verified 06/18/18 11:07 ED Review of Systems ROS: Stated complaint: LEG SWELLING/ROBERTO Other details as noted in HPI Comment: All other systems reviewed and negative Constitutional: denies: chills, fever Respiratory: denies: cough, shortness of breath, SOB with exertion, SOB at rest, wheezing Cardiovascular: denies: chest pain, palpitations Gastrointestinal: denies: abdominal pain ED Past Medical Hx - Past Medical History Previous Medical History?: Yes Hx Hypertension: Yes Hx CVA: Yes (2012) Hx Heart Attack/AMI: Yes Hx Congestive Heart Failure: Yes Hx Deep Vein Thrombosis: No Hx Liver Disease: No Hx Renal Disease: No Hx Arthritis: No Hx Seizures: No Hx Psychiatric Treatment: Yes (Bipolar,) Hx Asthma: No Hx Tuberculosis: No Hx Dementia: No Hx HIV: No Additional medical history: Afib, - Surgical History Past Surgical History?: Yes Hx Coronary Stent: Yes (x2) Hx Open Heart Surgery: No Hx Pacemaker: No Hx Internal Defibrillator: No Hx Cholecystectomy: Yes Hx Appendectomy: No Additional Surgical History: Cardiac stents, Stent in Rt. leg - Social History Smoking Status: Never Smoker Substance Use Type: None - Medications Home Medications: Home Medications Medication Instructions Recorded Confirmed Last Taken Type Furosemide [Lasix TAB] 40 mg PO BID #30 tablet 05/30/18 05/31/18 05/30/18 Rx Furosemide [Lasix TAB] 40 mg PO BID #60 tablet 05/31/18 06/06/18 Unknown Rx Aspirin [Aspirin BABY CHEW TAB] 81 mg PO QDAY #30 tab.chew 06/01/18 06/06/18 06/05/18 10:00 Rx Digoxin [Lanoxin] 0.25 mg PO DAILY@1700 #30 tablet 06/01/18 06/06/18 Unknown Rx Divalproex ER [Depakote ER] 500 mg PO BID #60 tablet 06/01/18 06/06/18 06/05/18 22:00 Rx Losartan [Cozaar] 25 mg PO QDAY #30 tablet 06/01/18 06/06/18 Unknown Rx Mirtazapine [Remeron] 7.5 mg PO QHS #14 tablet 06/01/18 06/06/18 06/05/18 22:00 Rx OLANzapine [ZyPREXA] 5 mg PO BID #60 tablet 06/01/18 06/06/18 Unknown Rx Rivaroxaban [Xarelto] 20 mg PO QDAY #30 tablet 06/01/18 06/06/18 Unknown Rx Tamsulosin [Flomax] 0.4 mg PO DAILY #30 capsule 06/01/18 06/06/18 Unknown Rx Metoprolol [Lopressor TAB] 50 mg PO TID 06/06/18 06/06/18 Unknown History ED Physical Exam - General Limitations: No Limitations General appearance: alert, in no apparent distress - Head Head exam: Present: atraumatic, normocephalic, normal inspection - Eye Eye exam: Present: normal appearance - ENT ENT exam: Present: normal exam, normal orophraynx, mucous membranes moist - Neck Neck exam: Present: normal inspection, full ROM. Absent: tenderness, meningismus, lymphadenopathy, thyromegaly - Respiratory Respiratory exam: Present: normal lung sounds bilaterally - Cardiovascular Cardiovascular Exam: Present: regular rate, normal rhythm, normal heart sounds - GI/Abdominal GI/Abdominal exam: Present: soft, normal bowel sounds. Absent: distended, tenderness, guarding, rebound, rigid, organomegaly, mass, bruit, pulsatile mass, hernia - Extremities Exam Extremities exam: Present: normal inspection, full ROM, normal capillary refill, pedal edema. Absent: tenderness, joint swelling, calf tenderness - Back Exam Back exam: Present: normal inspection, full ROM. Absent: CVA tenderness (L) - Neurological Exam Neurological exam: Present: alert, oriented X3, CN II-XII intact, normal gait - Psychiatric Psychiatric exam: Absent: depressed, agitated, anxious, flat affect, manic, homicidal ideation, suicidal ideation ED Course Vital Signs 06/21/18 02:47 Temperature 98.6 F Pulse Rate 90 Respiratory 16 Rate Blood Pressure 114/55 O2 Sat by Pulse 99 Oximetry ED Medical Decision Making - Medical Decision Making Mr. Hadley is a 72 years old male, very familiar to the ER and the staff states patient is coming more frequent. The patient had history of congestive heart failure and bilateral lower extremity swelling. Patient presented to the ER complaining of bilateral leg pain and swelling. Patient is homeless and doing a lot of walking every day. Patient was seen yesterday and had a gallbladder ultrasound for his lower extremity which was negative for DVT. Patient is nontoxic and in no acute distress. Patient is answering question appropriately. I reviewed patient medical record in his frequent visits to the ER I believe patient will benefit from drug abuse social worker consult for placement. Again patient is clinically stable with no acute problem. Critical care attestation.: If time is entered above; I have spent that time in minutes in the direct care of this critically ill patient, excluding procedure time. ED Disposition Clinical Impression: Homelessness Disposition: DC-01 TO HOME OR SELFCARE Is pt being admited?: No Condition: Stable Referrals: HAO AVELAR MD [Primary Care Provider] - 3-5 Days
== END 2018-06-21 04:05 | disposition home or self-care (01) ==
LOC: ED 02:38
DX: M79.89 Other specified soft tissue disorders (principal); M79.605 Pain in left leg; M79.604 Pain in right leg; Z59.0 Homelessness; I11.0 Hypertensive heart disease with heart failure; I50.9 Heart failure, unspecified; I25.2 Old myocardial infarction

== ENCOUNTER 2018-08-05 16:04 | Emergency (ER) | payer MEDICARE ==
--- NOTE | 2018-08-05 18:00 | Event Note ---
ED Screening Note Date of service: 08/05/18 Time: 17:58 ED Screening Note: 73 male c/o chest pain and ankle pain. This initial assessment/diagnostic orders/clinical plan/treatment(s) is/are subject to change based on patients health status, clinical progression and re- assessment by fellow clinical providers in the ED. Further treatment and workup at subsequent clinical providers discretion. Patient/guardian urged not to elope from the ED as their condition may be serious if not clinically assessed and managed. Initial orders include:
[2018-08-05 18:13] VITALS: BP 140/66
[2018-08-05 19:04] LABS: Basophils % (Auto) 0.6 % (0.0-1.8); Eosinophils # (Auto) 0.1 K/mm3 (0.0-0.4); Eosinophils % (Auto) 2.5 % (0.0-4.3); Hematocrit 36.8 % (35.5-45.6); Hemoglobin 11.6 gm/dl (11.8-15.2); Lymphocytes # (Auto) 1.4 K/mm3 (1.2-5.4); Lymphocytes % (Auto) 26.8 % (13.4-35.0); Mean Corpuscular HGB Conc 32 % (32-34); Mean Corpuscular Volume 71 fl (84-94); Monocytes # (Auto) 0.5 K/mm3 (0.0-0.8); Red Blood Count 5.22 M/mm3 (3.65-5.03)
[2018-08-05 19:32] LABS: Alanine Aminotransferase 7 units/L (7-56); BUN/Creatinine Ratio 15; Blood Urea Nitrogen 18 mg/dL (9-20); Calcium 9.7 mg/dL (8.4-10.2); Hemolysis Index 5
[2018-08-05 19:59] LABS: Platelet Count 117 K/mm3 (140-440)
--- NOTE | 2018-08-05 20:35 | Emergency Department Report ---
ED General Adult HPI - General Chief complaint: Medical Clearance Stated complaint: CHEST PAIN Source: patient Mode of arrival: Ambulatory Limitations: No Limitations - History of Present Illness Initial comments: This is a 73-year-old -[place] male who presents to the emergency room with pain to the feet for 1 week. Past medical history of congestive heart failure, CVA in 2012, [place], hypertension, bipolar, and Afib. Patient reports pain is worse with weightbearing. He also reports the to speak with a high school social studies tutor due to being an homeless. He denies recent injury, swelling, paresthesias, or weakness. Onset/Timin -: week(s) Location: lower extremity Radiation: non-radiation Severity scale (0 -10): 7 Quality: aching Consistency: intermittent Improves with: none Worsens with: movement Associated Symptoms: denies other symptoms Treatments Prior to Arrival: none - Related Data Home Medications Medication Instructions Recorded Confirmed Last Taken Metoprolol [Lopressor TAB] 50 mg PO TID 06/06/18 06/06/18 Unknown Previous Rx's Medication Instructions Recorded Last Taken Type Furosemide [Lasix TAB] 40 mg PO BID #30 tablet 05/30/18 05/30/18 Rx Furosemide [Lasix TAB] 40 mg PO BID #60 tablet 05/31/18 Unknown Rx Aspirin [Aspirin BABY CHEW TAB] 81 mg PO QDAY #30 tab.chew 06/01/18 06/05/18 10:00 Rx Digoxin [Lanoxin] 0.25 mg PO DAILY@1700 #30 tablet 06/01/18 Unknown Rx Divalproex ER [Depakote ER] 500 mg PO BID #60 tablet 06/01/18 06/05/18 22:00 Rx Losartan [Cozaar] 25 mg PO QDAY #30 tablet 06/01/18 Unknown Rx Mirtazapine [Remeron 15mg TAB] 7.5 mg PO QHS #14 tablet 06/01/18 06/05/18 22:00 Rx OLANzapine [ZyPREXA] 5 mg PO BID #60 tablet 06/01/18 Unknown Rx Rivaroxaban [Xarelto] 20 mg PO QDAY #30 tablet 06/01/18 Unknown Rx Tamsulosin [Flomax] 0.4 mg PO DAILY #30 capsule 06/01/18 Unknown Rx Acetaminophen [Arthritis Pain 650 mg PO Q8H PRN #20 tablet.er 08/05/18 Unknown Rx Relief] Allergies Allergy/AdvReac Type Severity Reaction Status Date / Time shellfish derived Allergy Itching Verified 08/05/18 16:06 ED Review of Systems ROS: Stated complaint: CHEST PAIN Other details as noted in HPI Constitutional: denies: chills, fever Respiratory: denies: cough, shortness of breath, wheezing Cardiovascular: denies: chest pain, palpitations Gastrointestinal: denies: abdominal pain, nausea, diarrhea Musculoskeletal: arthralgia (feet pain). denies: back pain, joint swelling Skin: denies: rash, lesions Neurological: denies: headache, weakness, paresthesias Psychiatric: denies: anxiety, depression ED Past Medical Hx - Past Medical History Hx Hypertension: Yes Hx CVA: Yes (2012) Hx Heart Attack/AMI: Yes Hx Congestive Heart Failure: Yes Hx Deep Vein Thrombosis: No Hx Liver Disease: No Hx Renal Disease: No Hx Arthritis: No Hx Seizures: No Hx Psychiatric Treatment: Yes (Bipolar,) Hx Asthma: No Hx Tuberculosis: No Hx Dementia: No Hx HIV: No Additional medical history: Afib, - Surgical History Hx Coronary Stent: Yes (x2) Hx Open Heart Surgery: No Hx Pacemaker: No Hx Internal Defibrillator: No Hx Cholecystectomy: Yes Hx Appendectomy: No Additional Surgical History: Cardiac stents, Stent in Rt. leg - Social History Smoking Status: Never Smoker Substance Use Type: None - Medications Home Medications: Home Medications Medication Instructions Recorded Confirmed Last Taken Type Furosemide [Lasix TAB] 40 mg PO BID #30 tablet 05/30/18 05/31/18 05/30/18 Rx Furosemide [Lasix TAB] 40 mg PO BID #60 tablet 05/31/18 06/06/18 Unknown Rx Aspirin [Aspirin BABY CHEW TAB] 81 mg PO QDAY #30 tab.chew 06/01/18 06/06/18 06/05/18 10:00 Rx Digoxin [Lanoxin] 0.25 mg PO DAILY@1700 #30 tablet 06/01/18 06/06/18 Unknown Rx Divalproex ER [Depakote ER] 500 mg PO BID #60 tablet 06/01/18 06/06/18 06/05/18 22:00 Rx Losartan [Cozaar] 25 mg PO QDAY #30 tablet 06/01/18 06/06/18 Unknown Rx Mirtazapine [Remeron 15mg TAB] 7.5 mg PO QHS #14 tablet 06/01/18 06/06/18 06/05/18 22:00 Rx OLANzapine [ZyPREXA] 5 mg PO BID #60 tablet 06/01/18 06/06/18 Unknown Rx Rivaroxaban [Xarelto] 20 mg PO QDAY #30 tablet 06/01/18 06/06/18 Unknown Rx Tamsulosin [Flomax] 0.4 mg PO DAILY #30 capsule 06/01/18 06/06/18 Unknown Rx Metoprolol [Lopressor TAB] 50 mg PO TID 06/06/18 06/06/18 Unknown History Acetaminophen [Arthritis Pain 650 mg PO Q8H PRN #20 tablet.er 08/05/18 Unknown Rx Relief] ED Physical Exam - General Limitations: No Limitations General appearance: alert, in no apparent distress - Respiratory Respiratory exam: Present: normal lung sounds bilaterally. Absent: respiratory distress - Cardiovascular Cardiovascular Exam: Present: regular rate, normal rhythm. Absent: systolic murmur, diastolic murmur, rubs, gallop - GI/Abdominal GI/Abdominal exam: Present: soft, normal bowel sounds - Extremities Exam Extremities exam: Present: full ROM, normal capillary refill, pedal edema (nonpitting). Absent: joint swelling, calf tenderness - Expanded Lower Extremity Exam Left Ankle exam: Present: full ROM. Absent: abrasion, laceration, ecchymosis, deformity, crepidus, dislocation, erythema, anterior draw sign Foot/Toe exam: Present: full ROM. Absent: tenderness, swelling, abrasion, laceration, ecchymosis, deformity, crepidus, dislocation, erythema, amputation, puncture wound, foreign body, calcaneal tenderness, tenderness at base of 5th metatarsal, nail avulsion, subungual hematoma Neuro vascular tendon exam: Present: no vascular compromise Gait: Positive: observed and normal Right Lower Leg exam: Present: normal inspection, full ROM Ankle exam: Present: full ROM. Absent: abrasion, laceration, ecchymosis, deformity, crepidus, dislocation, erythema, anterior draw sign Foot/Toe exam: Present: full ROM. Absent: tenderness, swelling, abrasion, laceration, ecchymosis, deformity, crepidus, dislocation, erythema, amputation, puncture wound, foreign body, calcaneal tenderness, tenderness at base of 5th m etatarsal, nail avulsion, subungual hematoma Neuro vascular tendon exam: Present: no vascular compromise Gait: Positive: observed and normal - Neurological Exam Neurological exam: Present: alert, oriented X3, normal gait - Psychiatric Psychiatric exam: Present: normal affect, normal mood - Skin Skin exam: Present: warm, dry, intact, normal color. Absent: rash ED Course Vital Signs 08/05/18 17:53 Temperature 99.2 F Pulse Rate 60 Respiratory 18 Rate Blood Pressure 140/66 O2 Sat by Pulse 99 Oximetry ED Medical Decision Making - Lab Data Result diagrams: 08/05/18 18:30 08/05/18 18:30 Lab Results 08/05/18 08/05/18 Range/Units 18:30 18:30 WBC 5.3 (4.5-11.0) K/mm3 RBC 5.22 H (3.65-5.03) M/mm3 Hgb 11.6 L (11.8-15.2) gm/dl Hct 36.8 (35.5-45.6) % MCV 71 L (84-94) fl MCH 22 L (28-32) pg MCHC 32 (32-34) % RDW 18.0 H (13.2-15.2) % Plt Count 117 L (140-440) K/mm3 Lymph % (Auto) 26.8 (13.4-35.0) % [place] % (Auto) 10.0 H (0.0-7.3) % Eos % (Auto) 2.5 (0.0-4.3) % Baso % (Auto) 0.6 (0.0-1.8) % Lymph # 1.4 (1.2-5.4) K/mm3 [place] # 0.5 (0.0-0.8) K/mm3 Eos # 0.1 (0.0-0.4) K/mm3 Baso # 0.0 (0.0-0.1) K/mm3 Seg Neutrophils % 60.1 (40.0-70.0) % Seg Neutrophils # 3.2 (1.8-7.7) K/mm3 Sodium 140 (137-145) mmol/L Potassium 4.2 (3.6-5.0) mmol/L Chloride 102.8 (98-107) mmol/L Carbon Dioxide 26 (22-30) mmol/L Anion Gap 15 mmol/L BUN 18 (9-20) mg/dL Creatinine 1.2 (0.8-1.5) mg/dL Estimated GFR > 60 ml/min BUN/Creatinine Ratio 15 % Glucose 90 (75-100) mg/dL Calcium 9.7 (8.4-10.2) mg/dL Total Bilirubin 0.60 (0.1-1.2) mg/dL AST 11 (5-40) units/L ALT 7 (7-56) units/L Alkaline Phosphatase 54 (35-129) units/L Troponin T < 0.010 (0.00-0.029) ng/mL Total Protein 7.8 (6.3-8.2) g/dL Albumin 4.0 (3.9-5) g/dL Albumin/Globulin Ratio 1.1 % - Medical Decision Making Patient was examined by me. Vitals are normal and patient is in no acute distress. Labs were obtained and are unremarkable. Patient ambulating normal while in the ER. He states he checked in to see a high school social studies tutor because he is homeless and have no where to go. A social work consult was placed. Patient will wait to speak with a high school social studies tutor. Start tylenol arthritis for acute on chronic pain. Plan discussed with patient to discharge and treat outpatient. He agrees with ER plan. Patient discharged home in stable condition. Follow up with PCP in 2-3 days. Critical care attestation.: If time is entered above; I have spent that time in minutes in the direct care of this critically ill patient, excluding procedure time. ED Disposition Clinical Impression: Pain in both feet, Homeless single person Disposition: TO HOME OR SELFCARE Is pt being admited?: No Does the pt Need Aspirin: No Condition: Stable Instructions: Arthralgia (ED) Additional Instructions: Return to the emergency room with worsening symptoms. Follow-up with their primary care doctor for continued care. Prescriptions: Acetaminophen [Arthritis Pain Relief] 650 mg PO Q8H PRN #20 tablet.er PRN Reason: Pain , Severe (7-10) Referrals: HAO AVELAR MD [Primary Care Provider] - 3-5 Days [facility] [Outside] - 3-5 Days [facility] [Outside] - 3-5 Days Time of Disposition: 21:32
[2018-08-05] MEDS ORDERED: NORCO 7.5/325 PO ONE (20:40)
== END 2018-08-06 00:36 | disposition home or self-care (01) ==
LOC: ED 16:04
DX: M79.672 Pain in left foot (principal); M79.671 Pain in right foot; Z59.0 Homelessness; I25.2 Old myocardial infarction; I11.0 Hypertensive heart disease with heart failure; I50.9 Heart failure, unspecified; F31.9 Bipolar disorder, unspecified; I48.91 Unspecified atrial fibrillation; Z79.899 Other long term (current) drug therapy; Z91.013 Allergy to seafood
CPT/HCPCS: 36415; 80053; 82962; 84484; 85025

== ENCOUNTER 2018-08-06 02:04 | Emergency (ER) | payer MEDICARE ==
--- NOTE | 2018-08-06 06:29 | Emergency Department Report ---
HPI - General Chief Complaint: Medical Clearance Time Seen by Provider: 08/06/18 06:01 - HPI HPI: 73-year-old -[place] male presents to the emergency department with complaint of some previous swelling around the ankles and shortness of breath that has since resolved. The patient has a history of CHF, coronary artery disease with ND, CHF, bipolar disorder. He was seen here yesterday for similar symptoms and had requested to see a social services aide at that time secondary to being homeless. He was evaluated and discharged but signed back in for his previous complaints. He does not have a primary care physician but follows up with Dr. Veronica for cardiology and says that he has a psychiatrist but is unsure of their name at the current time. While he does have a history of bipolar disorder and says that he has been noncompliant out of his meds, he denies any current hallucinations, suicidal or homicidal ideations. ED Past Medical Hx - Past Medical History Previous Medical History?: Yes Hx Hypertension: Yes Hx CVA: Yes (2012) Hx Heart Attack/AMI: Yes Hx Congestive Heart Failure: Yes Hx Deep Vein Thrombosis: No Hx Liver Disease: No Hx Renal Disease: No Hx Arthritis: No Hx Seizures: No Hx Psychiatric Treatment: Yes (Bipolar,) Hx Asthma: No Hx Tuberculosis: No Hx Dementia: No Hx HIV: No Additional medical history: Afib, - Surgical History Past Surgical History?: Yes Hx Coronary Stent: Yes (x2) Hx Open Heart Surgery: No Hx Pacemaker: No Hx Internal Defibrillator: No Hx Cholecystectomy: No Hx Appendectomy: No Additional Surgical History: Cardiac stents, Stent in Rt. leg - Social History Smoking Status: Never Smoker Substance Use Type: None - Medications Home Medications: Home Medications Medication Instructions Recorded Confirmed Last Taken Type Furosemide [Lasix TAB] 40 mg PO BID #30 tablet 05/30/18 05/31/18 05/30/18 Rx Furosemide [Lasix TAB] 40 mg PO BID #60 tablet 05/31/18 06/06/18 Unknown Rx Aspirin [Aspirin BABY CHEW TAB] 81 mg PO QDAY #30 tab.chew 06/01/18 06/06/18 06/05/18 10:00 Rx Digoxin [Lanoxin] 0.25 mg PO DAILY@1700 #30 tablet 06/01/18 06/06/18 Unknown Rx Divalproex ER [Depakote ER] 500 mg PO BID #60 tablet 06/01/18 06/06/18 06/05/18 22:00 Rx Losartan [Cozaar] 25 mg PO QDAY #30 tablet 06/01/18 06/06/18 Unknown Rx Mirtazapine [Remeron 15mg TAB] 7.5 mg PO QHS #14 tablet 06/01/18 06/06/18 06/05/18 22:00 Rx OLANzapine [ZyPREXA] 5 mg PO BID #60 tablet 06/01/18 06/06/18 Unknown Rx Rivaroxaban [Xarelto] 20 mg PO QDAY #30 tablet 06/01/18 06/06/18 Unknown Rx Tamsulosin [Flomax] 0.4 mg PO DAILY #30 capsule 06/01/18 06/06/18 Unknown Rx Metoprolol [Lopressor TAB] 50 mg PO TID 06/06/18 06/06/18 Unknown History Acetaminophen [Arthritis Pain 650 mg PO Q8H PRN #20 tablet.er 08/05/18 Unknown Rx Relief] ED Review of Systems ROS: Stated complaint: MED CORRECTION Other details as noted in HPI Comment: All other systems reviewed and negative Constitutional: denies: chills, fever Eyes: denies: eye pain, vision change ENT: denies: ear pain, throat pain Respiratory: shortness of breath (yesterday). denies: cough Cardiovascular: edema (around ankles). denies: chest pain Gastrointestinal: denies: abdominal pain, vomiting Genitourinary: denies: dysuria, discharge Musculoskeletal: denies: back pain, arthralgia Skin: denies: rash, change in color Neurological: denies: headache, numbness Physical Exam - Physical Exam Physical Exam: GENERAL: The patient is well-developed well-nourished. HENT: Normocephalic. Atraumatic. Patient has moist mucous membranes. EYES: Extraocular motions are intact. Pupils equal reactive to light bilaterally. NECK: Supple. Trachea is midline. CHEST/LUNGS: Clear to auscultation. There is no respiratory distress noted. HEART/CARDIOVASCULAR: Regular. There is no tachycardia. There is no murmur. ABDOMEN: Abdomen is soft, nontender. Patient has normal bowel sounds. There is no abdominal distention. SKIN: Skin is warm and dry. NEURO: The patient is awake, alert, and cooperative. The patient has no focal neurologic deficits. The patient has normal speech. MUSCULOSKELETAL: There is no tenderness or deformity. There is no evidence of acute injury. ED Medical Decision Making - Lab Data Result diagrams: 08/06/18 07:06 08/06/18 07:06 - Radiology Data Radiology results: report reviewed PROCEDURE: XR CHEST ROUTINE 2V TECHNIQUE: PA and lateral chest radiographs were obtained. HISTORY: SOB COMPARISONS: 06/20/2018. FINDINGS: No mediastinal shift. Cardiomegaly. No pneumothorax. Diffuse interstitial prominence. No definite pleural effusion. IMPRESSION: Pulmonary interstitial edema without definite effusion or focal airspace diseas e. This document is electronically signed by Krystyna Del Toro MD., August 06 2018 08:55:09 AM ET Transcribed By: OUMAR Dictated By: KRYSTYNA DEL TORO MD Electronically Authenticated By: KRYSTYNA DEL TORO MD Signed Date/Time: 08/06/18 0858 - Medical Decision Making This patient originally presented with the complaint of some previous shortness of breath and swelling around his ankles. On examination he does not appear to be in any acute respiratory distress. There is no significant peripheral edema. Chest x-ray was done that was read as some pulmonary interstitial edema without any definitive effusion or air space disease. Patient's labs were mostly unremarkable except for a mild to moderate urinary tract infection found, as well as elevated BNP. The patient also had some elevated blood pressure that came down with a dose of hydralazine. The patient met with the case management team at around 11:30 AM but eloped from the emergency department by noon. He was given a dose of antibiotics for his urinary tract infection but we were unable to start diuresis at and the patient eloped without any discharge paperwork or prescriptions. - Differential Diagnosis CHF, venous stasis, Pneumonia Critical Care Time: No Critical care attestation.: If time is entered above; I have spent that time in minutes in the direct care of this critically ill patient, excluding procedure time. ED Disposition Clinical Impression: Hypertension Qualifiers: Hypertension type: essential hypertension Qualified Code(s): I10 - Essential (primary) hypertension UTI (urinary tract infection) Qualifiers: Urinary tract infection type: acute cystitis Hematuria presence: without hematuria Qualified Code(s): N30.00 - Acute cystitis without hematuria CHF (congestive heart failure) Qualifiers: Heart failure type: unspecified Heart failure chronicity: acute on chronic Qualified Code(s): I50.9 - Heart failure, unspecified Disposition: ELOPED Is pt being admited?: No Instructions: Hypertension (ED) Referrals: HAO AVELAR MD [Primary Care Provider] - 3-5 Days
[2018-08-06 07:16] LABS: Bacteria,Urine 1+ /HPF (Negative); Bilirubin,Urine NEG (Negative); Blood,Urine NEG (Negative); Color,Urine Amber (Yellow); Mucus,Urine 1+ /HPF
[2018-08-06 07:34] LABS: Eosinophils # (Auto) 0.2 K/mm3 (0.0-0.4); Eosinophils % (Auto) 5.4 % (0.0-4.3); Hematocrit 36.2 % (35.5-45.6); Hemoglobin 11.7 gm/dl (11.8-15.2); Lymphocytes # (Auto) 1.6 K/mm3 (1.2-5.4); Mean Corpuscular HGB Conc 32 % (32-34); Monocytes # (Auto) 0.3 K/mm3 (0.0-0.8); Monocytes % (Auto) 7.1 % (0.0-7.3); Red Blood Count 5.19 M/mm3 (3.65-5.03)
[2018-08-06 07:34] LABS: Amphetamine Screen,Urine PRESUMPTIVE NEGATIVE; Benzodiazepines Screen,Urine PRESUMPTIVE NEGATIVE; Cannabinoid Screen,Urine PRESUMPTIVE NEGATIVE; Cocaine Screen,Urine PRESUMPTIVE NEGATIVE; Methadone Screen,Urine PRESUMPTIVE NEGATIVE; Opiate Screen,Urine PRESUMPTIVE NEGATIVE
[2018-08-06 07:45] LABS: Mean Corpuscular Volume 70 fl (84-94)
[2018-08-06 07:57] LABS: BUN/Creatinine Ratio 19; Blood Urea Nitrogen 17 mg/dL (9-20); Calcium 9.3 mg/dL (8.4-10.2); Hemolysis Index 7
[2018-08-06] MEDS ORDERED: MACROBID PO ONE (08:34)
[2018-08-06 08:35] LABS: Mean Platelet Volume 104 fl (6-12); Platelet Count 104 K/mm3 (140-440)
--- NOTE | 2018-08-06 08:58 | XRay Report ---
PROCEDURE: XR CHEST ROUTINE 2V TECHNIQUE: PA and lateral chest radiographs were obtained. HISTORY: SOB COMPARISONS: 06/20/2018. FINDINGS: No mediastinal shift. Cardiomegaly. No pneumothorax. Diffuse interstitial prominence. No definite ple ural effusion. IMPRESSION: Pulmonary interstitial edema without definite effusion or focal airspace disease. This document is electronically signed by Doyle Monge MD., August 06 2018 08:55:09 AM ET
[2018-08-06] MEDS ORDERED: APRESOLINE IV ONE (09:35)
[2018-08-06 10:19] VITALS: BP 154/65
== END 2018-08-06 12:10 | disposition left against medical advice (07) ==
LOC: ED 02:04
DX: R06.02 Shortness of breath (principal); M25.471 Effusion, right ankle; M25.472 Effusion, left ankle; N39.0 Urinary tract infection, site not specified; I11.0 Hypertensive heart disease with heart failure; I50.9 Heart failure, unspecified; I25.2 Old myocardial infarction; F31.9 Bipolar disorder, unspecified; Z86.73 Personal history of transient ischemic attack (TIA), and cerebral infarction without residual deficits; Z95.5 Presence of coronary angioplasty implant and graft; Z91.013 Allergy to seafood
CPT/HCPCS: 36415; 71046; 80048; 80307; 81001; 83880; 84484; 85025; 87086; 93005; 93010; 96374; 99284; J0360

== ENCOUNTER 2018-08-07 17:35 | Observation (INO) | payer MEDICARE ==
--- NOTE | 2018-08-07 18:04 | Event Note ---
ED Screening Note Date of service: 08/07/18 Time: 18:01 ED Screening Note: 73 y/o male comes in for chest pain that started 45 mins [employer] and is !0/10. no sob, no cough. This initial assessment/diagnostic orders/clinical plan/treatment(s) is/are subject to change based on patients health status, clinical progression and re- assessment by fellow clinical providers in the ED. Further treatment and workup at subsequent clinical providers discretion. Patient/guardian urged not to elope from the ED as their condition may be serious if not clinically assessed and managed. Initial orders include:
[2018-08-07 18:36] LABS: Hematocrit 36.8 % (35.5-45.6); Hemoglobin 11.8 gm/dl (11.8-15.2); Mean Corpuscular HGB Conc 32 % (32-34); Red Blood Count 5.29 M/mm3 (3.65-5.03); Red Cell Distribution Width 18.1 % (13.2-15.2)
[2018-08-07 18:41] LABS: Mean Corpuscular Volume 70 fl (84-94); Platelet Count 121 K/mm3 (140-440)
[2018-08-07 18:58] LABS: INR 1.16 (0.87-1.13)
[2018-08-07 18:59] LABS: Partial Thromboplastin Time 30.5 Sec. (24.2-36.6)
--- NOTE | 2018-08-07 19:06 | Emergency Department Report ---
ED Chest Pain HPI - General Chief Complaint: Chest Pain Stated Complaint: CHEST PAIN Time Seen by Provider: 08/07/18 18:25 Source: patient Mode of arrival: Ambulatory Limitations: No Limitations - History of Present Illness Initial Comments: 73-year-old -Romanian male presents to the emergency department with complaint of some chest pain and shortness of breath. The patient was here yesterday but eloped prior to completion of treatment. Patient is homeless and says that he was given some type of placement by case management and that he went there but "it was a terrible place, they were doing crack and other drugs there." Patient complains of some pain in the center of the chest along with the shortness of breath. He has a past medical history of CHF, CVA, coronary artery disease with IL, hypertension, atrial fibrillation and bipolar disorder. The patient says that he lost all of his medication. He denies any tobacco or illicit drug use. - Related Data Home Medications Medication Instructions Recorded Confirmed Last Taken Metoprolol [Lopressor TAB] 50 mg PO TID 06/06/18 06/06/18 Unknown Previous Rx's Medication Instructions Recorded Last Taken Type Furosemide [Lasix TAB] 40 mg PO BID #30 tablet 05/30/18 05/30/18 Rx Furosemide [Lasix TAB] 40 mg PO BID #60 tablet 05/31/18 Unknown Rx Aspirin [Aspirin BABY CHEW TAB] 81 mg PO QDAY #30 tab.chew 06/01/18 06/05/18 10:00 Rx Digoxin [Lanoxin] 0.25 mg PO DAILY@1700 #30 tablet 06/01/18 Unknown Rx Divalproex ER [Depakote ER] 500 mg PO BID #60 tablet 06/01/18 06/05/18 22:00 Rx Losartan [Cozaar] 25 mg PO QDAY #30 tablet 06/01/18 Unknown Rx Mirtazapine [Remeron 15mg TAB] 7.5 mg PO QHS #14 tablet 06/01/18 06/05/18 22:00 Rx OLANzapine [ZyPREXA] 5 mg PO BID #60 tablet 06/01/18 Unknown Rx Rivaroxaban [Xarelto] 20 mg PO QDAY #30 tablet 06/01/18 Unknown Rx Tamsulosin [Flomax] 0.4 mg PO DAILY #30 capsule 06/01/18 Unknown Rx Acetaminophen [Arthritis Pain 650 mg PO Q8H PRN #20 tablet.er 08/05/18 Unknown Rx Relief] Allergies Allergy/AdvReac Type Severity Reaction Status Date / Time shellfish derived Allergy Itching Verified 08/05/18 16:06 Heart Score - HEART Score History: Moderately suspicious EKG: Non-specific Age: > 65 Risk factors: > 3 risk factors or hx of atherosclerotic disease Troponin: < normal limit HEART Score: 6 - Critical Actions Critical Actions: 4-6 pts:12-16.6% risk of adverse cardiac event. Should be admitted ED Review of Systems ROS: Stated complaint: CHEST PAIN Other details as noted in HPI Comment: All other systems reviewed and negative Constitutional: denies: chills, fever Eyes: denies: eye pain, vision change ENT: denies: ear pain, throat pain Respiratory: shortness of breath, SOB with exertion Cardiovascular: chest pain. denies: palpitations Gastrointestinal: denies: abdominal pain, vomiting Genitourinary: denies: dysuria, discharge Musculoskeletal: denies: back pain, arthralgia Skin: denies: rash, lesions Neurological: denies: headache, weakness ED Past Medical Hx - Past Medical History Previous Medical History?: Yes Hx Hypertension: Yes Hx CVA: Yes (2012) Hx Heart Attack/AMI: Yes Hx Congestive Heart Failure: Yes Hx Deep Vein Thrombosis: No Hx Liver Disease: No Hx Renal Disease: No Hx Arthritis: No Hx Seizures: No Hx Psychiatric Treatment: Yes (Bipolar,) Hx Asthma: No Hx Tuberculosis: No Hx Dementia: No Hx HIV: No Additional medical history: Afib, - Surgical History Past Surgical History?: Yes Hx Coronary Stent: Yes (x2) Hx Open Heart Surgery: No Hx Pacemaker: No Hx Internal Defibrillator: No Hx Cholecystectomy: No Hx Appendectomy: No Additional Surgical History: Cardiac stents, Stent in Rt. leg - Social History Smoking Status: Former Smoker Substance Use Type: None - Medications Home Medications: Home Medications Medication Instructions Recorded Confirmed Last Taken Type Furosemide [Lasix TAB] 40 mg PO BID #30 tablet 05/30/18 05/31/18 05/30/18 Rx Furosemide [Lasix TAB] 40 mg PO BID #60 tablet 05/31/18 06/06/18 Unknown Rx Aspirin [Aspirin BABY CHEW TAB] 81 mg PO QDAY #30 tab.chew 06/01/18 06/06/18 06/05/18 10:00 Rx Digoxin [Lanoxin] 0.25 mg PO DAILY@1700 #30 tablet 06/01/18 06/06/18 Unknown Rx Divalproex ER [Depakote ER] 500 mg PO BID #60 tablet 06/01/18 06/06/18 06/05/18 22:00 Rx Losartan [Cozaar] 25 mg PO QDAY #30 tablet 06/01/18 06/06/18 Unknown Rx Mirtazapine [Remeron 15mg TAB] 7.5 mg PO QHS #14 tablet 06/01/18 06/06/18 06/05/18 22:00 Rx OLANzapine [ZyPREXA] 5 mg PO BID #60 tablet 06/01/18 06/06/18 Unknown Rx Rivaroxaban [Xarelto] 20 mg PO QDAY #30 tablet 06/01/18 06/06/18 Unknown Rx Tamsulosin [Flomax] 0.4 mg PO DAILY #30 capsule 06/01/18 06/06/18 Unknown Rx Metoprolol [Lopressor TAB] 50 mg PO TID 06/06/18 06/06/18 Unknown History Acetaminophen [Arthritis Pain 650 mg PO Q8H PRN #20 tablet.er 08/05/18 Unknown Rx Relief] ED Physical Exam - General Limitations: No Limitations - Other Other exam information: GENERAL: The patient is well-developed well-nourished. HENT: Normocephalic. Atraumatic. Patient has moist mucous membranes. EYES: Extraocular motions are intact. Pupils equal reactive to light bilaterally. NECK: Supple. Trachea is midline. CHEST/LUNGS: Coarse breath sounds. Mild tachypnea but no excessive muscle use. There is no respiratory distress noted. HEART/CARDIOVASCULAR: Irregular. There is no tachycardia. There is no murmur. ABDOMEN: Abdomen is soft, nontender. Patient has normal bowel sounds. There is no abdominal distention. SKIN: Skin is warm and dry. NEURO: The patient is awake, alert, and oriented. The patient is cooperative. The patient has no focal neurologic deficits. The patient has normal speech. MUSCULOSKELETAL: There is no tenderness or deformity. There is no evidence of acute injury. ED Course Vital Signs 08/07/18 08/07/18 08/07/18 17:59 18:36 19:26 Temperature 99.5 F Pulse Rate 117 H 67 79 Respiratory 12 17 21 Rate Blood Pressure 211/109 167/71 139/58 [Left] O2 Sat by Pulse 97 100 98 Oximetry 08/07/18 08/07/18 22:09 23:11 Temperature 97.8 F Pulse Rate 74 106 H Respiratory 17 18 Rate Blood Pressure 152/78 179/85 [Left] O2 Sat by Pulse 100 96 Oximetry JT score - Jt Score Age > 65: (1) Yes Aspirin use within the Past 7 Days: (0) No 3 or more CAD Risk Factors: (1) Yes 2 or more Angina events in past 24 hrs: (1) Yes Known CAD with more than 50% Stenosis: (0) No Elevated Cardiac Markers: (0) No ST Deviation Greater than 0.5mm: (0) No JT Score: 3 ED Medical Decision Making - Lab Data Result diagrams: 08/07/18 18:16 08/07/18 18:16 - EKG Data -: EKG Interpreted by Me - EKG Data Interpretation: other (atrial fibrillation, left axis deviation, PVCs, Q waves to the anterior and inferior leads, prolonged QTc, T-wave inversions to the lateral leads) - Radiology Data Radiology results: image reviewed interpreted by me: Chest x-ray shows some pulmonary vascular congestion. No pneumonia or pneumothorax. - Medical Decision Making This patient presented with a complaint of chest pain and shortness of breath. Chest x-ray shows some pulmonary vascular congestion but no pneumonia or pneumothorax. He has a BNP of greater than 10,000 which is greatly increased from his ER visit yesterday in which she was about 3000 prior to leaving/eloping before treatment could be given. The patient was given some Lasix to start diu resis. First troponin negative. The patient will be admitted to the hospital for further evaluation and treatment and was accepted for admission by the hospitalist service. - Differential Diagnosis CHF, IL, costochondritis, pneumonia Critical Care Time: No Critical care attestation.: If time is entered above; I have spent that time in minutes in the direct care of this critically ill patient, excluding procedure time. ED Disposition Clinical Impression: Atrial fibrillation with RVR, Medical non-compliance, Acute chest pain CHF (congestive heart failure) Qualifiers: Heart failure type: unspecified Heart failure chronicity: acute on chronic Qualified Code(s): I50.9 - Heart failure, unspecified Disposition: DC-09 OP ADMIT IP TO THIS HOSP Is pt being admited?: Yes Condition: Fair Time of Disposition: 01:00
[2018-08-07 19:16] LABS: Basophils % (Manual) 0 % (0.0-1.8); Total Cells Counted 100
[2018-08-07 19:17] LABS: Anisocytosis 1+; Ovalocytes Few; Platelet Estimate Consistent w Auto; Poikilocytosis 1+
[2018-08-07 19:31] LABS: Alanine Aminotransferase 8 units/L (7-56); BUN/Creatinine Ratio 16; Blood Urea Nitrogen 21 mg/dL (9-20); Calcium 10.4 mg/dL (8.4-10.2); Hemolysis Index 14
[2018-08-07] MEDS ORDERED: LASIX IV ONE (20:07)
--- NOTE | 2018-08-07 20:29 | XRay Report ---
PROCEDURE: XR CHEST 1V AP TECHNIQUE: Chest radiograph single view. HISTORY: Chest Pain COMPARISONS: 08/06/2018 . FINDINGS: Heart: Mild cardiomegaly is again noted. Mediastinum/Vessels: Normal. Lungs/Pleural space: Normal. Bony thorax: No acute osseous abnormality. Life support devices: None. IMPRESSION: Mild degree cardiomegaly No acute pulmonary process. This document is electronically signed by Nahun Garcia MD., August 07 2018 08:27:22 PM ET
[2018-08-07] MEDS ORDERED: ZOFRAN IV PRN (21:30)
[2018-08-07] MEDS ORDERED: TYLENOL PO PRN (21:30)
[2018-08-07] MEDS ORDERED: SODIUM CHLORIDE FLUSH SYRINGE 10 ML IV PRN (21:30)
[2018-08-07] MEDS ORDERED: MORPHINE IV PRN (21:30)
[2018-08-07] MEDS ORDERED: PERCOCET 5/325 PO PRN (21:30)
[2018-08-07] MEDS ORDERED: NITROSTAT SL PRN (21:36)
[2018-08-07] MEDS ORDERED: DILAUDID IV PRN (21:36)
[2018-08-07] MEDS ORDERED: COLACE PO SCH (22:00)
[2018-08-07] MEDS ORDERED: SODIUM CHLORIDE FLUSH SYRINGE 10 ML IV SCH (22:00)
[2018-08-07] MEDS ORDERED: HEPARIN SUB-Q SCH (22:00)
[2018-08-07] MEDS ORDERED: REMERON PO SCH (22:00)
--- NOTE | 2018-08-07 22:42 | History and Physical Report ---
History of Present Illness Date of examination: 08/07/18 Date of admission: 08/07/18 21:30 Chief complaint: Chest pain History of present illness: 73-year-old -Congolese male with history of CHF, CVA (2011), CAD, [place] (s/p stent x2), hypertension, atrial fibrillation and bipolar disorder who presents to [facility] ED with complaints of chest pain and shortness of breath for the past hour. Pt complains of nonradiating sub-sternal chest pain. He describes his pain as sharp and rates it 6/10. The pain is relieved by pain medication and rest. Patient states he is unable to walk more than 15 feet without becoming short of breath and needing to take a rest. Pt states that he follows Dr. Veronica at [facility]. Of note pt was seen in ED on 08/06/18 with complaints of swelling around the ankles and shortness of breath. He requested to see a social insurance specialist secondary to being homeless. The patient met with the case management team at around 11:30 am but eloped from the ED around noon. Admits: CP, SOB, Increased swelling of ankles, noncompliant with heart failure medication Denies: IRBY, n/v/d, diaphoresis, hemoptysis, fever, or recent sick contact Past History Past Medical History: acute [place], atrial fib, heart failure, hypertension, liver disease, stroke (2011), other (Bipolar, ) Past Surgical History: Other (s/p stent x2) Social history: other (former smoker) Family history: no significant family history Medications and Allergies Allergies Allergy/AdvReac Type Severity Reaction Status Date / Time shellfish derived Allergy Itching Verified 08/05/18 16:06 Home Medications Medication Instructions Recorded Confirmed Last Taken Type Furosemide [Lasix TAB] 40 mg PO BID #30 tablet 05/30/18 05/31/18 05/30/18 Rx Furosemide [Lasix TAB] 40 mg PO BID #60 tablet 05/31/18 06/06/18 Unknown Rx Aspirin [Aspirin BABY CHEW TAB] 81 mg PO QDAY #30 tab.chew 06/01/18 06/06/18 06/05/18 10:00 Rx Digoxin [Lanoxin] 0.25 mg PO DAILY@1700 #30 tablet 06/01/18 06/06/18 Unknown Rx Divalproex ER [Depakote ER] 500 mg PO BID #60 tablet 06/01/18 06/06/18 06/05/18 22:00 Rx Losartan [Cozaar] 25 mg PO QDAY #30 tablet 06/01/18 06/06/18 Unknown Rx Mirtazapine [Remeron 15mg TAB] 7.5 mg PO QHS #14 tablet 06/01/18 06/06/18 06/05/18 22:00 Rx OLANzapine [ZyPREXA] 5 mg PO BID #60 tablet 06/01/18 06/06/18 Unknown Rx Rivaroxaban [Xarelto] 20 mg PO QDAY #30 tablet 06/01/18 06/06/18 Unknown Rx Tamsulosin [Flomax] 0.4 mg PO DAILY #30 capsule 06/01/18 06/06/18 Unknown Rx Metoprolol [Lopressor TAB] 50 mg PO TID 06/06/18 06/06/18 Unknown History Acetaminophen [Arthritis Pain 650 mg PO Q8H PRN #20 tablet.er 08/05/18 Unknown Rx Relief] Active Meds: Active Medications Acetaminophen (Tylenol) 650 mg PO Q4H PRN PRN Reason: Pain MILD(1-3)/Fever >100.5/IRBY Aspirin (Baby Aspirin) 81 mg PO QDAY [facility] Atorvastatin Calcium (Lipitor) 40 mg PO QHS [facility] Last Admin: 08/07/18 22:19 Dose: 40 mg Documented by: Digoxin (Lanoxin) 0.25 mg PO DAILY@1700 [facility] Divalproex Sodium (Depakote Er) 500 mg PO BID [facility] Last Admin: 08/07/18 22:19 Dose: 500 mg Documented by: Docusate Sodium (Colace) 100 mg PO BID [facility] Last Admin: 08/07/18 22:19 Dose: 100 mg Documented by: Furosemide (Lasix) 40 mg IV QDAY [facility] Hydromorphone HCl (Dilaudid) 0.5 mg IV Q3H PRN PRN Reason: Pain , Severe (7-10) Losartan Potassium (Cozaar) 25 mg PO QDAY [facility] Metoprolol Tartrate (Lopressor) 50 mg PO TID [facility] Mirtazapine (Remeron) 7.5 mg PO QHS [facility] Last Admin: 08/07/18 22:19 Dose: 7.5 mg Documented by: Morphine Sulfate (Morphine) 2 mg IV Q4H PRN PRN Reason: Pain, Moderate (4-6) Stop: 08/08/18 23:59 Nitroglycerin (Nitrostat) 0.4 mg SL Q5M PRN PRN Reason: Chest Pain Olanzapine (Zyprexa) 5 mg PO BID [facility] Ondansetron HCl (Zofran) 4 mg IV Q8H PRN PRN Reason: Nausea And Vomiting Oxycodone/Acetaminophen (Percocet 5/325) 1 tab PO Q6H PRN PRN Reason: Pain, Moderate (4-6) Rivaroxaban (Xarelto) 20 mg PO QDAY [facility]; Protocol Sodium Chloride (Sodium Chloride Flush Syringe 10 Ml) 10 ml IV BID [facility] Last Admin: 08/07/18 22:19 Dose: 10 ml Documented by: Sodium Chloride (Sodium Chloride Flush Syringe 10 Ml) 10 ml IV PRN PRN PRN Reason: LINE FLUSH Tamsulosin HCl (Flomax) 0.4 mg PO DAILY [facility] Review of Systems All systems: negative (reviewed and no additional remarkable complaints except as noted below) Cardiovascular: chest pain, shortness of breath Respiratory: shortness of breath Exam - Physical Exam Narrative exam: Physical exam General appearance: Present: No acute distress, drowsy but easily aroused, older adult -Congolese male - EENT Eyes: Present: PERRL, EOM intact ENT: hearing intact, poor dentition - Neck Neck: Present: supple, normal ROM - Respiratory Respiratory effort: Non-labored Respiratory: Bibasilar crackles - Cardiovascular Heart rate: 130 (bpm) Rhythm: atrial fibrillation, left axis deviation, Heart Sounds: Present: S1 & S2. Absent: rub, click - Extremities Extremities: no ischemia, pulses intact, abnormal (bilateral lower extremity pitting edema) - Peripheral Assessment Peripheral Pulses: within normal limits - Abdominal General gastrointestinal: soft, non-tender, normal bowel sounds - Integumentary Integumentary: Present: warm, dry - Musculoskeletal Musculoskeletal: Able to move all extremities - Psychiatric Psychiatric: cooperative - Constitutional Vitals: Temp Pulse Resp BP Pulse Ox 99.5 F 74 17 152/78 100 08/07/18 17:59 08/07/18 22:09 08/07/18 22:09 08/07/18 22:09 08/07/18 22:09 Results - Labs CBC & Chem 7: 08/07/18 18:16 08/07/18 18:16 Labs: Laboratory Last Values WBC 5.3 K/mm3 (4.5-11.0) 08/07/18 18:16 RBC 5.29 M/mm3 (3.65-5.03) H 19 18:16 Hgb 11.8 gm/dl (11.8-15.2) 08/07/18 18:16 Hct 36.8 % (35.5-45.6) 08/07/18 18:16 MCV 70 fl (84-94) L 19 18:16 MCH 22 pg (28-32) L 08/07/18 18:16 MCHC 32 % (32-34) 08/07/18 18:16 RDW 18.1 % (13.2-15.2) H 08/07/18 18:16 Plt Count 121 K/mm3 (140-440) L 08/07/18 18:16 Add Manual Diff Complete 08/07/18 18:16 Total Counted 100 08/07/18 18:16 Seg Neuts % (Manual) 67.0 % (40.0-70.0) 08/07/18 18:16 0 % 08/07/18 18:16 21.0 % (13.4-35.0) 08/07/18 18:16 Reactive Lymphs % (Man) 0 % 08/07/18 18:16 9.0 % (0.0-7.3) H 19 18:16 3.0 % (0.0-4.3) 19 18:16 0 % (0.0-1.8) 08/07/18 18:16 0 % 19 18:16 0 % 08/07/18 18:16 0 % 08/07/18 18:16 0 % 08/07/18 18:16 Nucleated RBC % Not Reportable 08/07/18 18:16 Seg Neutrophils # Man 3.6 K/mm3 (1.8-7.7) 08/07/18 18:16 Band Neutrophils # 0.0 K/mm3 08/07/18 18:16 1.1 K/mm3 (1.2-5.4) L 08/07/18 18:16 Abs React Lymphs (Man) 0.0 K/mm3 08/07/18 18:16 0.5 K/mm3 (0.0-0.8) 08/07/18 18:16 0.2 K/mm3 (0.0-0.4) 08/07/18 18:16 0.0 K/mm3 (0.0-0.1) 08/07/18 18:16 0.0 K/mm3 08/07/18 18:16 0.0 K/mm3 08/07/18 18:16 0.0 K/mm3 08/07/18 18:16 Blast Cells # 0.0 K/mm3 08/07/18 18:16 WBC Morphology Not Reportable 08/07/18 18:16 Hypersegmented Neuts Not Reportable 08/07/18 18:16 Hyposegmented Neuts Not Reportable 08/07/18 18:16 Hypogranular Neuts Not Reportable 08/07/18 18:16 Not Reportable 08/07/18 18:16 Not Reportable 08/07/18 18:16 Not Reportable 08/07/18 18:16 Not Reportable 08/07/18 18:16 Not Reportable 08/07/18 18:16 Not Reportable 08/07/18 18:16 Consistent w auto 08/07/18 18:16 Not Reportable 08/07/18 18:16 Plt Clumps, EDTA Not Reportable 08/07/18 18:16 Not Reportable 08/07/18 18:16 Not Reportable 08/07/18 18:16 Not Reportable 08/07/18 18:16 Plt Morphology Comment Not Reportable 08/07/18 18:16 RBC Morphology Not Reportable 08/07/18 18:16 Dimorphic RBCs Not Reportable 08/07/18 18:16 Not Reportable 08/07/18 18:16 Not Reportable 08/07/18 18:16 1+ 08/07/18 18:16 1+ 08/07/18 18:16 1+ 08/07/18 18:16 Not Reportable 08/07/18 18:16 Not Reportable 08/07/18 18:16 Not Reportable 08/07/18 18:16 Not Reportable 08/07/18 18:16 Not Reportable 08/07/18 18:16 Not Reportable 08/07/18 18:16 Few 08/07/18 18:16 Not Reportable 08/07/18 18:16 Not Reportable 08/07/18 18:16 Not Reportable 08/07/18 18:16 Not Reportable 08/07/18 18:16 Not Reportable 08/07/18 18:16 Not Reportable 08/07/18 18:16 Not Reportable 08/07/18 18:16 Acanthocytes (Spur) Not Reportable 08/07/18 18:16 Rouleaux Not Reportable 08/07/18 18:16 Not Reportable 08/07/18 18:16 Not Reportable 08/07/18 18:16 Not Reportable 08/07/18 18:16 Not Reportable 08/07/18 18:16 Hem Pathologist Commnt No 08/07/18 18:16 PT 14.5 Sec. (12.2-14.9) 08/07/18 18:31 INR 1.16 (0.87-1.13) H 08/07/18 18:31 APTT 30.5 Sec. (24.2-36.6) 08/07/18 18:31 Sodium 140 mmol/L (137-145) 08/07/18 18:16 Potassium 4.3 mmol/L (3.6-5.0) 08/07/18 18:16 Chloride 103.1 mmol/L (98-107) 08/07/18 18:16 Carbon Dioxide 24 mmol/L (22-30) 08/07/18 18:16 17 mmol/L 08/07/18 18:16 BUN 21 mg/dL (9-20) H 08/07/18 18:16 1.3 mg/dL (0.8-1.5) 08/07/18 18:16 Estimated GFR > 60 ml/min 08/07/18 18:16 16 % 08/07/18 18:16 Glucose 182 mg/dL (75-100) H 08/07/18 18:16 Calcium 10.4 mg/dL (8.4-10.2) H 08/07/18 18:16 0.70 mg/dL (0.1-1.2) 08/07/18 18:16 AST 14 units/L (5-40) 08/07/18 18:16 ALT 8 units/L (7-56) 08/07/18 18:16 59 units/L (35-129) 08/07/18 18:16 0.011 ng/mL (0.00-0.029) 08/07/18 20:44 NT-Pro-B Natriuret Pep 74705 pg/mL (0-900) H 08/07/18 18:31 7.7 g/dL (6.3-8.2) 08/07/18 18:16 4.0 g/dL (3.9-5) 08/07/18 18:16 1.1 % 08/07/18 18:16 - Imaging and Cardiology EKG: image reviewed (atrial fibrillation, left axis deviation, 130bpm) Chest x-ray: report reviewed (Mild degree cardiomegaly. No acute pulmonary process.), image reviewed Assessment and Plan Assessment and plan: 73-year-old -Congolese male with history of CHF, CVA (2011), CAD, [place] (s/p stent x2), hypertension, atrial fibrillation and bipolar disorder who presents to [facility] ED with complaints of chest pain and shortness of breath for the past hour. He is previously seen in ED on 08/06/18 with complaints of swelling around the ankles and shortness of breath. He requested to see a social insurance specialist, met with case mgmt around noon, and eloped from ED around noon. Troponin negative 2, [place] [address]. CXR unrevealing for acute cardiopulmonary abnormalities. He was found to be in hypertensive urgency with BP of 211/109. Given patient extensive cardiac history will admit to telemetry and consult cardiology. AE CHF Acute CP Elevated BNP HTN Urgency Bipolar Disorder Afib on Xarelto CAD Hx [place] s/p stent x2 BPH Plan: Continue supportive care Continuous telemetry monitoring Cardiology ([facility]) consulted Monitor BP Resume losartan 25 mg daily, metoprolol 50 mg 3 times a day IV Lasix 40 mg daily Resume digoxin 0.25mg daily ASA 81mg and Lipitor 40 2 at bedtime Resume Depakote 500 mg twice a day, Remeron 7.5 mg daily at bedtime, Zyprexa 5 mg twice a day Continue Flomax 0.4 mg daily DVT PPX on Xarelto Advance Directives: No VTE prophylaxis?: Chemical Plan of care discussed with patient/family: Yes
[2018-08-08] MEDS ORDERED: LOPRESSOR PO SCH (08:00)
[2018-08-08 08:18] VITALS: BP 172/83
[2018-08-08] MEDS ORDERED: LASIX IV SCH (10:00)
[2018-08-08] MEDS ORDERED: XARELTO PO SCH (10:00)
[2018-08-08] MEDS ORDERED: BABY ASPIRIN PO SCH (10:00)
[2018-08-08] MEDS ORDERED: COZAAR PO SCH (10:00)
[2018-08-08] MEDS ORDERED: FLOMAX PO SCH (10:00)
--- NOTE | 2018-08-08 15:57 | Discharge Summary ---
Providers - Providers Date of Admission: 08/07/18 21:30 Attending physician: BLAZE SKINNER 08/07/18 21:36 Consult to Physician [CONS] Routine Comment: Consulting Provider: HEIDI LOMBARDI Physician Instructions: Reason For Exam: est pt, HF, CP 08/08/18 04:12 Consult to Case Management [CONS] Routine Services Needed at Discharge: Other Notified:: protective services case worker Comment:: homeless Primary care physician: HAO AVELAR Hospitalization Condition: Undetermined Hospital course: left AMA, I never got to see him. Disposition: DC-07 LEFT AGAINST MED ADVICE Core Measure Documentation - Palliative Care Palliative Care/ Comfort Measures: Not Applicable - Core Measures Any of the following diagnoses?: none - VTE Discharge Requirements Deep Vein Thrombosis/Pulmonary Embolism Present on Admission: No Has pt received <5 days of overlap therapy or INR<2.0: No Anticoagulant overlap therapy prescribed at discharge: No Contraindication No Overlap Therapy order at DC: Not Indicated Exam - Constitutional Vitals: Temp Pulse Resp BP Pulse Ox 98.0 F 76 16 172/83 99 08/08/18 08:14 08/08/18 08:14 08/08/18 08:14 08/08/18 08:14 08/08/18 08:14 Plan Follow up with: HAO AVELAR MD [Primary Care Provider] - 7 Days
[2018-08-08] MEDS ORDERED: LANOXIN PO SCH (17:00)
== END 2018-08-08 09:05 | disposition left against medical advice (07) ==
LOC: ED 17:35 → 4A 21:30
PROVIDERS: ADMIT Internal Medicine; ATTEND Internal Medicine
DX: R07.89 Other chest pain (principal); I16.0 Hypertensive urgency; F31.9 Bipolar disorder, unspecified; I48.91 Unspecified atrial fibrillation; I25.10 Atherosclerotic heart disease of native coronary artery without angina pectoris; I25.2 Old myocardial infarction; N40.0 Benign prostatic hyperplasia without lower urinary tract symptoms; R79.89 Other specified abnormal findings of blood chemistry; I11.0 Hypertensive heart disease with heart failure; I50.9 Heart failure, unspecified; Z79.899 Other long term (current) drug therapy; Z95.1 Presence of aortocoronary bypass graft; Z86.73 Personal history of transient ischemic attack (TIA), and cerebral infarction without residual deficits
CPT/HCPCS: 36415; 71045; 80053; 83880; 84484; 85007; 85025; 85610; 85730; 93005; 93010; 96374; 99284; A9270; G0378; J1940

== ENCOUNTER 2018-08-08 19:49 | Emergency (ER) | payer MEDICARE ==
--- NOTE | 2018-08-08 23:04 | XRay Report ---
PROCEDURE: XR CHEST ROUTINE 2V TECHNIQUE: PA and lateral chest radiographs were obtained. HISTORY: Medical Clearance Psych COMPARISONS: CXR 08/07/2018. FINDINGS: Heart: Moderately enlarged but stable. Mediastinum/Vessels: Normal. Lungs/Pleural space: Normal. Bony thorax: No acute osseous abnormality. IMPRESSION: No acute cardiopulmonary process seen. No change. Stable cardiomegaly This document is electronically signed by Aisha Motley MD., August 08 2018 11:02:11 PM ET
[2018-08-08 23:09] LABS: Basophils # (Auto) 0.1 K/mm3 (0.0-0.1); Basophils % (Auto) 0.9 % (0.0-1.8); Eosinophils # (Auto) 0.2 K/mm3 (0.0-0.4); Eosinophils % (Auto) 3.6 % (0.0-4.3); Hematocrit 34.1 % (35.5-45.6); Hemoglobin 11.2 gm/dl (11.8-15.2); Lymphocytes # (Auto) 1.4 K/mm3 (1.2-5.4); Lymphocytes % (Auto) 23.3 % (13.4-35.0); Mean Corpuscular HGB Conc 33 % (32-34); Mean Corpuscular Volume 70 fl (84-94); Monocytes # (Auto) 0.7 K/mm3 (0.0-0.8); Monocytes % (Auto) 11.7 % (0.0-7.3); Red Blood Count 4.86 M/mm3 (3.65-5.03); Red Cell Distribution Width 18.6 % (13.2-15.2)
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
[2018-08-08 23:18] LABS: Platelet Count 110 K/mm3 (140-440)
[2018-08-08 23:42] LABS: Albumin 3.6 g/dL (3.9-5); Calcium 10.1 mg/dL (8.4-10.2)
[2018-08-09 01:02] LABS: Amphetamine Screen,Urine PRESUMPTIVE NEGATIVE; Benzodiazepines Screen,Urine PRESUMPTIVE NEGATIVE; Cannabinoid Screen,Urine PRESUMPTIVE NEGATIVE; Cocaine Screen,Urine PRESUMPTIVE NEGATIVE; Methadone Screen,Urine PRESUMPTIVE NEGATIVE; Opiate Screen,Urine PRESUMPTIVE NEGATIVE
[2018-08-09] MEDS ORDERED: NORVASC PO ONE (01:26)
[2018-08-09 01:33] LABS: Bilirubin,Urine NEG (Negative); Blood,Urine SM (Negative); Color,Urine Amber (Yellow); Hyaline Casts,Urine 124 /LPF; Mucus,Urine 3+ /HPF
[2018-08-09 01:54] LABS: Protein,Urine >500 mg/dL (Negative); WBC,Urine > 182.0 /HPF (0.0-6.0)
[2018-08-09] MEDS ORDERED: MACROBID PO ONE (06:28)
[2018-08-09] MEDS ORDERED: TYLENOL PO ONE (07:29)
[2018-08-09 08:02] VITALS: BP 163/90
== END 2018-08-09 11:12 | disposition home or self-care (01) ==
LOC: ED 19:49
DX: M25.572 Pain in left ankle and joints of left foot (principal); M25.571 Pain in right ankle and joints of right foot; I11.0 Hypertensive heart disease with heart failure; I50.9 Heart failure, unspecified; N39.0 Urinary tract infection, site not specified; F31.9 Bipolar disorder, unspecified; I25.2 Old myocardial infarction; I48.91 Unspecified atrial fibrillation; Z59.0 Homelessness; Z95.1 Presence of aortocoronary bypass graft; Z79.82 Long term (current) use of aspirin; Z79.899 Other long term (current) drug therapy; Z91.013 Allergy to seafood; Z98.890 Other specified postprocedural states
CPT/HCPCS: 36415; 71046; 80053; 80307; 81001; 83880; 85025; 99284; G0480; 80320; 99285

== ENCOUNTER 2018-08-09 20:26 | Emergency (ER) | payer MEDICARE ==
[2018-08-09 20:36] VITALS: BP 139/84
--- NOTE | 2018-08-09 20:39 | Emergency Department Report ---
Chief Complaint: Extremity Injury, Lower Stated Complaint: BILATERAL ANKLE/FOOT PAIN Time Seen by Provider: 08/09/18 20:35 - HPI History of Present Illness: This is a 73-year-old male nontoxic-well in appearance with no signs of distress presents with acute on chronic bilateral leg pains and swelling. Patient was just discharged this morning on medications and diagnose. Patient denies any follow-up. Patient deneis any chest pain, shortness of breathe, fever, chills, headache, nausea, vomiting, back pain. Patient denies any SI/HI. Patient denies any other complaints or symptoms. Stated started to take medications that he was prescribed. - Exam Vital Signs: Vital Signs 08/09/18 08/09/18 20:34 20:35 Temperature 98.4 F Pulse Rate 130 H 80 Respiratory 16 Rate Blood Pressure 139/84 O2 Sat by Pulse 98 Oximetry Physical Exam: GENERAL: The patient is well-developed well-nourished. No SI/HI. HENT: Normocephalic. Atraumatic. Patient has moist mucous membranes. EYES: Extraocular motions are intact. NECK: Supple. Trachea is midline. CHEST/LUNGS: Clear to auscultation. There is no respiratory distress noted. HEART/CARDIOVASCULAR: Regular. There is no tachycardia. There is no murmur. ABDOMEN: Abdomen is soft, nontender. Patient has normal bowel sounds. There is no abdominal distention. SKIN: Skin is warm and dry. NEURO: The patient is awake, alert, and oriented. The patient is cooperative. The patient has no focal neurologic deficits. The patient has normal speech. MUSCULOSKELETAL: There is no tenderness or deformity. There is no limitation range of motion. There is no evidence of acute injury. MSE screening note: Focused history and physical exam performed. Due to findings the following was ordered: ED Medical Decision Making - Medical Decision Making I have reviewed the previous visit from this morning and I agree with Dr. Velasquez discussion. Patient was instructed to continue taking the medications that was prescrpied to him, including medication for UTI. Astridn is stable now for follow-up. This is a chronic on going condition for patient. Patient does need a PCP and professor of mathematics for proper treatment. I will provide patient with these referrals. Patient was instructed to Follow-up with a primary care doctor in 3- 5 days or if symptoms worsen and continue return to emergency room as soon as possible. At time of discharge, the patient does not seem toxic or ill in appearance. No acute signs of distress noted. Patient agrees to discharge treatment plan of care. No further questions noted by the patient. ED Disposition for MSE Clinical Impression: Chronic ankle pain, bilateral Disposition: DC-01 TO HOME OR SELFCARE Is pt being admited?: No Does the pt Need Aspirin: No Condition: Stable Additional Instructions: Follow-up with a primary care and professor of mathematics doctor in 2 days or if symptoms worsen and continue return to emergency room as soon as possible. Continue taking the medications that was prescribed to you. Referrals: [facility]IMARY [facility] [Referring] - 3-5 Days ЕЛЕНА MCKEON MD [Staff Physician] - 3-5 Days LAMONT MCKINNEY MD [Staff Physician] - 3-5 Days [facility] [Outside] - 3-5 Days [facility] [place] [facility] [Outside] - 3-5 Days
== END 2018-08-09 21:00 | disposition home or self-care (01) ==
LOC: ED 20:26
DX: M25.571 Pain in right ankle and joints of right foot (principal); M25.572 Pain in left ankle and joints of left foot; G89.29 Other chronic pain
CPT/HCPCS: 99281

== ENCOUNTER 2018-08-12 13:41 | Emergency (ER) | payer MEDICARE ==
--- NOTE | 2018-08-12 14:04 | Event Note ---
ED Screening Note ED Screening Note: Pt presents for chronic LE edema and pain in afib with RVR did not take his meds last night, did not take them this morning states he had 7 medications refilled and states he left all medications in [place] and is requesting refills of all meds This initial assessment/diagnostic orders/clinical plan/treatment(s) is/are subject to change based on patients health status, clinical progression and re- assessment by fellow clinical providers in the ED. Further treatment and workup at subsequent clinical providers discretion. Patient/guardian urged not to elope from the ED as their condition may be serious if not clinically assessed and managed. Initial orders include: EKG, labs
[2018-08-12] MEDS ORDERED: LOPRESSOR PO ONE (14:20)
[2018-08-12] MEDS ORDERED: XARELTO PO ONE (14:20)
[2018-08-12] MEDS ORDERED: LASIX PO ONE (14:22)
[2018-08-12] MEDS ORDERED: LANOXIN PO ONE (14:22)
--- NOTE | 2018-08-12 14:37 | Emergency Department Report ---
ED Extremity Problem HPI - General Chief complaint: Extremity Injury, Lower Stated complaint: ANKLE SWOLLEN Time Seen by Provider: 08/12/18 14:02 Source: patient, old records reviewed Mode of arrival: Ambulatory Limitations: No Limitations - History of Present Illness Initial comments: 73-year-old male with a past medical history of CHF, bipolar disorder, chronic atrial fibrillation, CAD with stent placement, right leg stent, and homelessness with frequent ER visits presents to the hospital once again complaining of lower extremity edema. Patient states he has not had his medications 2 days. Patient was seen here August 05, , , , and . Vists were mostly related to lower extremity edema but also have included chest pain and shortness of breath. 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 Patient also had one attempt at admission once again patient left before admitting doctor could see him the next day. Patient states that yesterday he went to a primary care office and was seen by a Dr Veronica. Apparently Dr Veronica wrote him for several prescriptions and increase his Lasix dose from 40 twice a day to 80 twice a day and added potassium. Patient states that he filled the medications last night but [place]. He has not had the medication yesterday or today. He was unable to coordinate pickup or drop off of these meds. He presents with A. дмитрий with RVR denies chest pain or shortness of breath. Only complaint is persistent leg edema. Patient now states he does not have the money to fill the medication again is requesting for us to give him his medication. - Related Data Previous Rx's Medication Instructions Recorded Last Taken Type Aspirin [Aspirin BABY CHEW TAB] 81 mg PO QDAY #30 tab.chew 06/01/18 06/05/18 10:00 Rx Acetaminophen [Arthritis Pain 650 mg PO Q8H PRN #20 tablet.er 08/05/18 Unknown Rx Relief] Nitrofurantoin [place]/M-Cryst 100 mg PO Q12HR #14 capsule 08/09/18 Unknown Rx [Macrobid CAP] Digoxin [Lanoxin] 0.25 mg PO DAILY@1700 #30 tablet 08/12/18 Unknown Rx Divalproex ER [Depakote ER] 500 mg PO BID #60 tablet 08/12/18 Unknown Rx Furosemide [Lasix TAB] 40 mg PO BID #30 tablet 08/12/18 Unknown Rx Losartan [Cozaar] 25 mg PO QDAY #30 tablet 08/12/18 Unknown Rx Metoprolol [Lopressor TAB] 50 mg PO TID #90 tablet 08/12/18 Unknown Rx Mirtazapine [Remeron 15mg TAB] 7.5 mg PO QHS #14 tablet 08/12/18 Unknown Rx OLANzapine [ZyPREXA] 5 mg PO BID #60 tablet 08/12/18 Unknown Rx Rivaroxaban [Xarelto] 20 mg PO QDAY #30 tablet 08/12/18 Unknown Rx Tamsulosin [Flomax] 0.4 mg PO DAILY #30 capsule 08/12/18 Unknown Rx Allergies Allergy/AdvReac Type Severity Reaction Status Date / Time shellfish derived Allergy Itching Verified 08/05/18 16:06 ED Review of Systems ROS: Stated complaint: ANKLE SWOLLEN Other details as noted in HPI Comment: All other systems reviewed and negative ED Past Medical Hx - Past Medical History Previous Medical History?: Yes Hx Hypertension: Yes Hx CVA: Yes (2012) Hx Heart Attack/AMI: Yes Hx Congestive Heart Failure: Yes Hx Deep Vein Thrombosis: No Hx Liver Disease: No Hx Renal Disease: No Hx Arthritis: No Hx Seizures: No Hx Psychiatric Treatment: Yes (Bipolar,) Hx Asthma: No Hx Tuberculosis: No Hx Dementia: No Hx HIV: No Additional medical history: Afib, - Surgical History Past Surgical History?: Yes Hx Coronary Stent: Yes (x2) Hx Open Heart Surgery: No Hx Pacemaker: No Hx Internal Defibrillator: No Hx Cholecystectomy: No Hx Appendectomy: No Additional Surgical History: Cardiac stents, Stent in Rt. leg - Social History Smoking Status: Former Smoker Substance Use Type: Alcohol - Medications Home Medications: Home Medications Medication Instructions Recorded Confirmed Last Taken Type Aspirin [Aspirin BABY CHEW TAB] 81 mg PO QDAY #30 tab.chew 06/01/18 08/08/18 06/05/18 10:00 Rx Acetaminophen [Arthritis Pain 650 mg PO Q8H PRN #20 tablet.er 08/05/18 08/08/18 Unknown Rx Relief] Nitrofurantoin [place]/M-Cryst 100 mg PO Q12HR #14 capsule 08/09/18 Unknown Rx [Macrobid CAP] Digoxin [Lanoxin] 0.25 mg PO DAILY@1700 #30 tablet 08/12/18 Unknown Rx Divalproex ER [Depakote ER] 500 mg PO BID #60 tablet 08/12/18 Unknown Rx Furosemide [Lasix TAB] 40 mg PO BID #30 tablet 08/12/18 Unknown Rx Losartan [Cozaar] 25 mg PO QDAY #30 tablet 08/12/18 Unknown Rx Metoprolol [Lopressor TAB] 50 mg PO TID #90 tablet 08/12/18 Unknown Rx Mirtazapine [Remeron 15mg TAB] 7.5 mg PO QHS #14 tablet 08/12/18 Unknown Rx OLANzapine [ZyPREXA] 5 mg PO BID #60 tablet 08/12/18 Unknown Rx Rivaroxaban [Xarelto] 20 mg PO QDAY #30 tablet 08/12/18 Unknown Rx Tamsulosin [Flomax] 0.4 mg PO DAILY #30 capsule 08/12/18 Unknown Rx ED Physical Exam - General Limitations: No Limitations - Other Other exam information: General: No limitations Head exam: Atraumatic, normocephalic Eyes exam: Normal appearance, ENT: Moist mucous membrane, normal oropharynx Neck exam: Normal inspection, full range of motion, no meningismus nontender Respiratory exam: Clear to auscultation bilateral, no wheezes, rales, crackles Cardiovascular: Irregular rhythm, systolic heart murmur, mild tachycardia Abdomen: Soft, nondistended, and nontender, with normal bowel sounds, no rebound, or guarding Extremity: Full range of motion, bilateral lower extremity edema pitting 2+ no calf tenderness Back: Normal Inspection, full range of motion, no tenderness Neurologic: Alert, oriented x3, cranial nerves intact, no motor or sensory deficit Psychiatric: normal affect, normal mood Skin: Warm, dry, intact ED Course Vital Signs 08/12/18 08/12/18 08/12/18 13:44 14:22 14:37 Temperature 98.4 F Pulse Rate 144 H 104 H 116 H Respiratory 20 16 Rate Blood Pressure 155/95 137/91 Blood Pressure 142/91 [Right] O2 Sat by Pulse 100 98 Oximetry 08/12/18 08/12/18 08/12/18 15:44 17:02 18:46 Temperature 98.0 F Pulse Rate 98 H 90 86 Respiratory 14 16 16 Rate Blood Pressure 151/99 Blood Pressure 154/79 166/88 [Right] O2 Sat by Pulse 98 100 98 Oximetry ED Medical Decision Making - Lab Data Result diagrams: 08/12/18 15:34 08/12/18 15:34 Lab Results 08/12/18 08/12/18 08/12/18 Range/Units 14:30 14:30 14:30 WBC TNR RBC TNR Hgb TNR Hct TNR MCV TNR MCH TNR MCHC TNR RDW TNR Plt Count TNR Lymph % (Auto) TNR [place] % (Auto) TNR Eos % (Auto) TNR Baso % (Auto) TNR Lymph # TNR [place] # TNR Eos # TNR Baso # TNR Add Manual Diff TNR Seg Neutrophils % TNR Seg Neutrophils # TNR PT TNR INR TNR APTT TNR Sodium TNR Potassium TNR Chloride TNR Carbon Dioxide TNR Anion Gap TNR BUN TNR Creatinine TNR Estimated GFR TNR BUN/Creatinine Ratio TNR Glucose TNR Calcium TNR Total Bilirubin TNR AST TNR ALT TNR Alkaline Phosphatase TNR Total Creatine Kinase TNR CK-MB (CK-2) TNR CK-MB (CK-2) Rel Index TNR Troponin T TNR NT-Pro-B Natriuret Pep Total Protein TNR Albumin TNR Albumin/Globulin Ratio TNR Triglycerides (2-149) mg/dL Cholesterol (50-199) mg/dL LDL Cholesterol Direct (50-130) mg/dL HDL Cholesterol (40-59) mg/dL Cholesterol/HDL Ratio % TSH Free T4 08/12/18 08/12/18 08/12/18 Range/Units 14:30 14:30 15:34 WBC 5.5 RBC 4.96 Hgb 11.4 L Hct 34.8 L MCV 70 L MCH 23 L MCHC 33 RDW 19.0 H Plt Count 153 Lymph % (Auto) 20.4 Sumner % (Auto) 11.3 H Eos % (Auto) 4.8 H Baso % (Auto) 0.5 Lymph # 1.1 L [place] # 0.6 Eos # 0.3 Baso # 0.0 Add Manual Diff Seg Neutrophils % 63.0 Seg Neutrophils # 3.4 PT INR APTT Sodium Potassium Chloride Carbon Dioxide Anion Gap BUN Creatinine Estimated GFR BUN/Creatinine Ratio Glucose Calcium Total Bilirubin AST ALT Alkaline Phosphatase Total Creatine Kinase CK-MB (CK-2) CK-MB (CK-2) Rel Index Troponin T NT-Pro-B Natriuret Pep TNR Total Protein Albumin Albumin/Globulin Ratio Triglycerides (2-149) mg/dL Cholesterol (50-199) mg/dL LDL Cholesterol Direct (50-130) mg/dL HDL Cholesterol (40-59) mg/dL Cholesterol/HDL Ratio % TSH TNR Free T4 TNR 08/12/18 08/12/18 08/12/18 Range/Units 15:34 15:34 15:34 WBC RBC Hgb Hct MCV MCH MCHC RDW Plt Count Lymph % (Auto) Sumner % (Auto) Eos % (Auto) Baso % (Auto) Lymph # Sumner # Eos # Baso # Add Manual Diff Seg Neutrophils % Seg Neutrophils # PT 15.7 H INR 1.28 H APTT 31.5 Sodium 139 Potassium 4.1 Chloride 99.8 Carbon Dioxide 27 Anion Gap 16 BUN 24 H Creatinine 1.2 Estimated GFR > 60 BUN/Creatinine Ratio 20 Glucose 98 Calcium 10.4 H Total Bilirubin 0.50 AST 18 ALT 16 Alkaline Phosphatase 60 Total Creatine Kinase CK-MB (CK-2) CK-MB (CK-2) Rel Index Troponin T NT-Pro-B Natriuret Pep 6181 H Total Protein 7.5 Albumin 4.0 Albumin/Globulin Ratio 1.1 Triglycerides (2-149) mg/dL Cholesterol (50-199) mg/dL LDL Cholesterol Direct (50-130) mg/dL HDL Cholesterol (40-59) mg/dL Cholesterol/HDL Ratio % TSH 0.819 Free T4 1.24 08/12/18 08/12/18 Range/Units 15:34 18:33 WBC RBC Hgb Hct MCV MCH MCHC RDW Plt Count Lymph % (Auto) Sumner % (Auto) Eos % (Auto) Baso % (Auto) Lymph # Sumner # Eos # Baso # Add Manual Diff Seg Neutrophils % Seg Neutrophils # PT INR APTT Sodium Potassium Chloride Carbon Dioxide Anion Gap BUN Creatinine Estimated GFR BUN/Creatinine Ratio Glucose Calcium Total Bilirubin AST ALT Alkaline Phosphatase Total Creatine Kinase CK-MB (CK-2) CK-MB (CK-2) Rel Index Troponin T 0.269 H* D 0.260 H* NT-Pro-B Natriuret Pep Total Protein Albumin Albumin/Globulin Ratio Triglycerides 108 (2-149) mg/dL Cholesterol 144 (50-199) mg/dL LDL Cholesterol Direct 87 (50-130) mg/dL HDL Cholesterol 50 (40-59) mg/dL Cholesterol/HDL Ratio 2.88 % TSH Free T4 - EKG Data -: EKG Interpreted by Me (afib 110) EKG shows normal: axis (qrs 19), QRS complexes (qrsd 86), ST-T waves (no stemi, pvc) - EKG Data When compared to previous EKG there are: no significant change - Medical Decision Making repeat trop and ekg stable pt without cp or sob pt here for chronic leg edema with med refill request pt provided Xarelto, digoxin, but no blood, and by mouth Lasix in the ED pt will continue to attempt to contact the women who has his meds to obtain them he will also attempt to contact his insurance company to see if they will cover scripts again i will write for his last scripts on record. asa is otc - Differential Diagnosis afib rvr, med noncompliance, homeless Critical Care Time: No Critical care attestation.: If time is entered above; I have spent that time in minutes in the direct care of this critically ill patient, excluding procedure time. ED Disposition Clinical Impression: Atrial fibrillation with RVR, Dependent edema, Noncompliance with medication regimen, Medication refill Disposition: DC TO HOME OR SELFCARE Is pt being admited?: No Condition: Stable Instructions: Atrial Fibrillation (ED), Leg Edema (ED) Additional Instructions: Take the medication as prescribed. Follow up with your doctor or the clinic/doctor provided. Return if symptoms worsen as indicated by your discharge instructions Prescriptions: Losartan [Cozaar] 25 mg PO QDAY #30 tablet Divalproex ER [Depakote ER] 500 mg PO BID #60 tablet Tamsulosin [Flomax] 0.4 mg PO DAILY #30 capsule Digoxin [Lanoxin] 0.25 mg PO DAILY@1700 #30 tablet Furosemide [Lasix TAB] 40 mg PO BID #30 tablet Metoprolol [Lopressor TAB] 50 mg PO TID #90 tablet Mirtazapine [Remeron 15mg TAB] 7.5 mg PO QHS #14 tablet Rivaroxaban [Xarelto] 20 mg PO QDAY #30 tablet OLANzapine [ZyPREXA] 5 mg PO BID #60 tablet [facility] ESTRELLITA [Primary Care Provider] - 3-5 Days HEIDI LOMBARDI MD [Staff Physician] - 3-5 Days Time of Disposition: 19:36
[2018-08-12 15:46] LABS: Hematocrit TNR % (35.5-45.6); Hemoglobin TNR gm/dl (11.8-15.2); Mean Corpuscular HGB Conc TNR % (32-34); Mean Corpuscular Volume TNR fl (84-94); Red Blood Count TNR M/mm3 (3.65-5.03)
[2018-08-12 15:47] LABS: Mean Platelet Volume TNR fl (6-12); Platelet Count TNR K/mm3 (140-440); Red Cell Distribution Width TNR % (13.2-15.2)
[2018-08-12 15:48] LABS: Eosinophils % (Auto) TNR % (0.0-4.3); Lymphocytes % (Auto) TNR % (13.4-35.0); Monocytes % (Auto) TNR % (0.0-7.3)
[2018-08-12 15:49] LABS: Basophils % (Auto) TNR % (0.0-1.8); Lymphocytes # (Auto) TNR K/mm3 (1.2-5.4)
[2018-08-12 15:50] LABS: Monocytes # (Auto) TNR K/mm3 (0.0-0.8)
[2018-08-12 15:51] LABS: Eosinophils # (Auto) TNR K/mm3 (0.0-0.4)
[2018-08-12 15:52] LABS: Basophils # (Auto) TNR K/mm3 (0.0-0.1)
[2018-08-12 15:54] LABS: BUN/Creatinine Ratio TNR; Blood Urea Nitrogen TNR mg/dL (9-20); Calcium TNR mg/dL (8.4-10.2)
[2018-08-12 15:55] LABS: Alanine Aminotransferase TNR units/L (7-56); Creatine Kinase MB TNR ng/mL (0.0-4.0)
[2018-08-12 15:56] LABS: Albumin TNR g/dL (3.9-5); Hemolysis Index TNR
[2018-08-12 15:57] LABS: INR TNR (0.87-1.13)
[2018-08-12 15:58] LABS: Free T4 (Free Thyroxine) TNR ng/dL (0.76-1.46); Partial Thromboplastin Time TNR Sec. (24.2-36.6)
[2018-08-12 16:04] LABS: Basophils % (Auto) 0.5 % (0.0-1.8); Eosinophils # (Auto) 0.3 K/mm3 (0.0-0.4); Eosinophils % (Auto) 4.8 % (0.0-4.3); Hematocrit 34.8 % (35.5-45.6); Hemoglobin 11.4 gm/dl (11.8-15.2); Lymphocytes # (Auto) 1.1 K/mm3 (1.2-5.4); Lymphocytes % (Auto) 20.4 % (13.4-35.0); Mean Corpuscular HGB Conc 33 % (32-34); Mean Corpuscular Volume 70 fl (84-94); Monocytes # (Auto) 0.6 K/mm3 (0.0-0.8); Monocytes % (Auto) 11.3 % (0.0-7.3); Platelet Count 153 K/mm3 (140-440); Red Blood Count 4.96 M/mm3 (3.65-5.03)
[2018-08-12 16:15] LABS: Alanine Aminotransferase 16 units/L (7-56); BUN/Creatinine Ratio 20; Blood Urea Nitrogen 24 mg/dL (9-20); Calcium 10.4 mg/dL (8.4-10.2); Hemolysis Index 15; INR 1.28 (0.87-1.13)
[2018-08-12 16:16] LABS: Partial Thromboplastin Time 31.5 Sec. (24.2-36.6)
[2018-08-12 16:33] LABS: Free T4 (Free Thyroxine) 1.24 ng/dL (0.76-1.46)
[2018-08-12 18:10] LABS: Chol/HDL Ratio 2.88 %
[2018-08-12 18:46] VITALS: BP 166/88
== END 2018-08-12 19:45 | disposition home or self-care (01) ==
LOC: ED 13:41
DX: R60.0 Localized edema (principal); I48.91 Unspecified atrial fibrillation; I11.0 Hypertensive heart disease with heart failure; I50.9 Heart failure, unspecified; I25.2 Old myocardial infarction; F31.9 Bipolar disorder, unspecified; Z76.0 Encounter for issue of repeat prescription; Z91.14 Patient's other noncompliance with medication regimen; Z86.73 Personal history of transient ischemic attack (TIA), and cerebral infarction without residual deficits; Z59.0 Homelessness; Z95.5 Presence of coronary angioplasty implant and graft; Z79.899 Other long term (current) drug therapy; Z91.013 Allergy to seafood
CPT/HCPCS: 36415; 80053; 80061; 83880; 84439; 84443; 84484; 85025; 85610; 85730; 93005; 93010

== ENCOUNTER 2018-08-19 22:37 | Emergency (ER) | payer MEDICARE ==
[2018-08-20 01:07] LABS: Basophils % (Auto) 0.4 % (0.0-1.8); Eosinophils # (Auto) 0.2 K/mm3 (0.0-0.4); Eosinophils % (Auto) 3.7 % (0.0-4.3); Hematocrit 33.5 % (35.5-45.6); Hemoglobin 10.6 gm/dl (11.8-15.2); Lymphocytes # (Auto) 1.8 K/mm3 (1.2-5.4); Lymphocytes % (Auto) 27.2 % (13.4-35.0); Mean Corpuscular HGB Conc 32 % (32-34); Mean Corpuscular Volume 71 fl (84-94); Monocytes # (Auto) 0.5 K/mm3 (0.0-0.8); Monocytes % (Auto) 7.9 % (0.0-7.3); Platelet Count 180 K/mm3 (140-440); Red Blood Count 4.72 M/mm3 (3.65-5.03); Red Cell Distribution Width 19.1 % (13.2-15.2)
[2018-08-20 01:56] LABS: BUN/Creatinine Ratio 25; Blood Urea Nitrogen 33 mg/dL (9-20); Calcium 9.7 mg/dL (8.4-10.2); Hemolysis Index 14
[2018-08-20] MEDS ORDERED: LASIX IV ONE (02:45)
--- NOTE | 2018-08-20 02:51 | Emergency Department Report ---
HPI - General Chief Complaint: Extremity Injury, Lower Time Seen by Provider: 08/20/18 02:10 - HPI HPI: Room 9 The patient is a 73-year-old male presenting with a chief complaint of lower extremity edema. The patient has a history of CHF and normally takes Lasix. The patient states he has been out of his Lasix for the past 9 days during that time his experiment bilateral lower extremity edema. Patient denies chest pain or shortness of breath Location: Bilateral lower extremities Duration: [See above] Quality: [See above] Severity: [See above] Modifying factors: [see above] Context: [see above] Mode of transportation: [not driving] ED Past Medical Hx - Past Medical History Previous Medical History?: Yes Hx Hypertension: Yes Hx CVA: Yes (2011) Hx Heart Attack/AMI: Yes Hx Congestive Heart Failure: Yes Hx Psychiatric Treatment: Yes (Bipolar,) Additional medical history: Afib, - Surgical History Hx Coronary Stent: Yes (x2) Additional Surgical History: Cardiac stents, Stent in Rt. leg - Family History Family history: no significant - Social History Smoking Status: Never Smoker Substance Use Type: None (denies illicit drug use) - Medications Home Medications: Home Medications Medication Instructions Recorded Confirmed Last Taken Type Aspirin [Aspirin BABY CHEW TAB] 81 mg PO QDAY #30 tab.chew 06/01/18 08/08/18 06/05/18 10:00 Rx Acetaminophen [Arthritis Pain 650 mg PO Q8H PRN #20 tablet.er 08/05/18 08/08/18 Unknown Rx Relief] Nitrofurantoin [place]/M-Cryst 100 mg PO Q12HR #14 capsule 08/09/18 Unknown Rx [Macrobid CAP] Digoxin [Lanoxin] 0.25 mg PO DAILY@1700 #30 tablet 08/12/18 Unknown Rx Losartan [Cozaar] 25 mg PO QDAY #30 tablet 08/12/18 Unknown Rx Metoprolol [Lopressor TAB] 50 mg PO TID #90 tablet 08/12/18 Unknown Rx Mirtazapine [Remeron 15mg TAB] 7.5 mg PO QHS #14 tablet 08/12/18 Unknown Rx OLANzapine [ZyPREXA] 5 mg PO BID #60 tablet 08/12/18 Unknown Rx Rivaroxaban [Xarelto] 20 mg PO QDAY #30 tablet 08/12/18 Unknown Rx Tamsulosin [Flomax] 0.4 mg PO DAILY #30 capsule 08/12/18 Unknown Rx Divalproex ER [Depakote ER] 500 mg PO BID #60 tablet 08/20/18 Unknown Rx Furosemide [Lasix TAB] 40 mg PO BID #60 tablet 08/20/18 Unknown Rx ED Review of Systems ROS: Stated complaint: BOTH FEET SWOLLEN AND ANKLES Other details as noted in HPI Constitutional: no symptoms reported Eyes: denies: eye pain ENT: denies: throat pain Respiratory: denies: shortness of breath Cardiovascular: denies: chest pain Endocrine: no symptoms reported Gastrointestinal: denies: abdominal pain Genitourinary: denies: dysuria Musculoskeletal: denies: back pain Neurological: denies: headache Physical Exam - Physical Exam Vital Signs: Vital Signs 08/19/18 23:09 Temperature 97.9 F Pulse Rate 118 H Respiratory 18 Rate Blood Pressure 113/82 O2 Sat by Pulse 100 Oximetry Physical Exam: GENERAL: The patient is well-developed well-nourished male lying on stretcher not appearing to be in acute distress. [] HEENT: Normocephalic. Atraumatic. Extraocular motions are intact. Patient has moist mucous membranes. NECK: Supple. Trachea midline CHEST/LUNGS: Clear to auscultation. There is no respiratory distress noted. HEART/CARDIOVASCULAR: Irregularly irregular. There is no tachycardia. There is no gallop rub or murmur. ABDOMEN: Abdomen is soft, nontender. Patient has normal bowel sounds. SKIN: There is no rash. There is 1-2+ bilateral lower extremity pitting edema. There is no diaphoresis. NEURO: The patient is awake, alert, and oriented. The patient is cooperative. The patient has normal speech MUSCULOSKELETAL: There is no evidence of acute injury. ED Course Vital Signs 08/19/18 23:09 Temperature 97.9 F Pulse Rate 118 H Respiratory 18 Rate Blood Pressure 113/82 O2 Sat by Pulse 100 Oximetry ED Medical Decision Making - Lab Data Result diagrams: 08/20/18 00:43 08/20/18 00:43 - EKG Data -: EKG Interpreted by Me Rate: normal (86 bpm) - EKG Data When compared to previous EKG there are: previous EKG unavailable Interpretation: other (atrial fibrillation rate controlled at 86 bpm) - Differential Diagnosis CHF exacerbation Critical care attestation.: If time is entered above; I have spent that time in minutes in the direct care of this critically ill patient, excluding procedure time. ED Disposition Clinical Impression: Peripheral edema, CHF (congestive heart failure) Disposition: TO HOME OR SELFCARE Is pt being admited?: No Does the pt Need Aspirin: No Condition: Stable Instructions: Heart Failure (ED) Additional Instructions: Return to the emergency department immediately should you develop worsening symptoms, fever, inability to tolerate food or liquid or any other concerns. Prescriptions: Divalproex ER [Depakote ER] 500 mg PO BID #60 tablet Furosemide [Lasix TAB] 40 mg PO BID #60 tablet Referrals: HAO AVELAR MD [Primary Care Provider] - 3-5 Days ADAM CANAS MD [Staff Physician] - 3-5 Days Time of Disposition: 04:35
[2018-08-20] MEDS ORDERED: DepaCON 500 MG in NACL 0.9% 100 ML IV ONE (04:45)
[2018-08-20 06:22] VITALS: BP 152/81
== END 2018-08-20 06:21 | disposition home or self-care (01) ==
LOC: ED 22:37
DX: R60.0 Localized edema (principal); I11.0 Hypertensive heart disease with heart failure; I50.9 Heart failure, unspecified; F31.9 Bipolar disorder, unspecified; I48.91 Unspecified atrial fibrillation; Z95.1 Presence of aortocoronary bypass graft; Z86.73 Personal history of transient ischemic attack (TIA), and cerebral infarction without residual deficits; Z79.82 Long term (current) use of aspirin; Z79.899 Other long term (current) drug therapy; Z91.013 Allergy to seafood
CPT/HCPCS: 36415; 80048; 80162; 80164; 85025; 93005; 93010; 96365; 96375; 99283; J1940

== ENCOUNTER 2018-09-06 13:25 | Emergency (ER) | payer MEDICARE ==
[2018-09-06] MEDS ORDERED: LASIX PO ONE (14:26)
--- NOTE | 2018-09-06 14:29 | Emergency Department Report ---
HPI - General Chief Complaint: Extremity Injury, Lower Time Seen by Provider: 09/06/18 13:38 - HPI HPI: 73-year-old -[place] Citizen male, who is well-known to this department, presents with the complaint of bilateral leg pain and swelling. He has a hist ory of atrial fibrillation, CHF, hypertension, bipolar disorder. Patient says that he lost all of his medications last Monday. He was here on 08/20/18 and was given a prescription for a month's worth of Lasix and his Depakote. Therefore he has not been taking anything for diuresis. He denies any fever, chest pain, shortness of breath, nausea, vomiting. He says that he follows up with Dr. Veronica for cardiology that he has a psychiatrist but cannot currently remember the name. ED Past Medical Hx - Past Medical History Previous Medical History?: Yes Hx Hypertension: Yes Hx CVA: Yes (2011) Hx Heart Attack/AMI: Yes Hx Congestive Heart Failure: Yes Hx Psychiatric Treatment: Yes (Bipolar,) Additional medical history: Afib, - Surgical History Past Surgical History?: Yes Hx Coronary Stent: Yes (x2) Additional Surgical History: Cardiac stents, Stent in Rt. leg - Social History Smoking Status: Unknown if ever smoked Substance Use Type: None - Medications Home Medications: Home Medications Medication Instructions Recorded Confirmed Last Taken Type Furosemide [Lasix TAB] 40 mg PO BID #60 tablet 09/06/18 Unknown Rx Losartan [Cozaar] 25 mg PO DAILY #30 tablet 09/06/18 Unknown Rx Metoprolol [Lopressor TAB] 50 mg PO TID #90 tablet 09/06/18 Unknown Rx Mirtazapine [Remeron 15mg TAB] 7.5 mg PO QHS #14 tablet 09/06/18 Unknown Rx Oxycodone HCl/Acetaminophen 1 each PO Q6HR PRN #12 tablet 09/06/18 Unknown Rx [Percocet 7.5/325 mg] Potassium Chloride [K-Dur] 20 meq PO BID #60 tab 09/06/18 Unknown Rx Rivaroxaban [Xarelto] 20 mg PO DAILY #30 tablet 09/06/18 Unknown Rx Tamsulosin [Flomax] 0.4 mg PO DAILY #30 capsule 09/06/18 Unknown Rx ED Review of Systems ROS: Stated complaint: LEG PAIN Other details as noted in HPI Comment: All other systems reviewed and negative Constitutional: denies: chills, fever Eyes: denies: eye pain, vision change ENT: denies: ear pain, throat pain Respiratory: denies: cough, shortness of breath Cardiovascular: edema. denies: chest pain Gastrointestinal: denies: abdominal pain, vomiting Genitourinary: denies: dysuria, discharge Musculoskeletal: arthralgia, myalgia. denies: back pain Skin: denies: rash, lesions Neurological: denies: headache, weakness Physical Exam - Physical Exam Vital Signs: Vital Signs 09/06/18 13:43 Temperature 99.2 F Pulse Rate 114 H Respiratory 16 Rate Blood Pressure 143/77 [Right] O2 Sat by Pulse 98 Oximetry Physical Exam: GENERAL: The patient is well-developed well-nourished. HENT: Normocephalic. Atraumatic. Patient has moist mucous membranes. EYES: Extraocular motions are intact. Pupils equal reactive to light bilater ally. NECK: Supple. Trachea is midline. CHEST/LUNGS: Clear to auscultation. There is no respiratory distress noted. HEART/CARDIOVASCULAR: Irregular with mild tachycardia. There is no murmur. ABDOMEN: Abdomen is soft, nontender. Patient has normal bowel sounds. There is no abdominal distention. SKIN: 2+ pitting edema of the bilateral lower extremities. NEURO: The patient is awake, alert, and oriented. The patient is cooperative. The patient has no focal neurologic deficits. The patient has normal speech. MUSCULOSKELETAL: Tenderness to palpation to the bilateral lower extremities from the knees distally. There is no evidence of acute injury. ED Course Vital Signs 09/06/18 13:43 Temperature 99.2 F Pulse Rate 114 H Respiratory 16 Rate Blood Pressure 143/77 [Right] O2 Sat by Pulse 98 Oximetry ED Medical Decision Making - Lab Data Result diagrams: 09/06/18 14:47 09/06/18 14:47 - EKG Data -: EKG Interpreted by Me - EKG Data When compared to previous EKG there are: no significant change Interpretation: unchanged when compared t (08/20/18), other (atrial fibrillation, left axis deviation, PVCs, LVH, Q waves in the anterior leads) - Radiology Data Radiology results: image reviewed interpreted by me: Chest x-ray shows some cardiomegaly without any signs of pleural effusions, pneumonia or pneumothorax. - Medical Decision Making This patient presents to the emergency department with a complaint of lower extremity pain and swelling. He has a history of CHF but denies any shortness of breath at this time. Patient does have 2+ bilateral lower extremity pitting edema and he is tender to palpation to the bilateral lower extremities. Chest x-ray shows some cardiomegaly without any other acute process. Patient's labs show an elevated troponin of 0.075, which is elevated but is less than his previous visit. The patient has a BNP of 15,000 consistent with his history of CHF and medication noncompliance. The patient has chronic A. fib with some mild RVR. He was given some metoprolol here for rate control. The patient was given some Lasix to start diuresis. My plan is for the patient to be admitted to the hospital for further evaluation and treatment. The case was presented to the admitting hospitalist, Dr. Grimm, who will either admit the patient or provide further disposition. Critical Care Time: No Critical care attestation.: If time is entered above; I have spent that time in minutes in the direct care of this critically ill patient, excluding procedure time. ED Disposition Clinical Impression: Dependent edema, Bilateral lower extremity edema, Noncompliance with medication regimen, History of DVT (deep vein thrombosis) Afib Qualifiers: Atrial fibrillation type: chronic Qualified Code(s): I48.2 - Chronic atrial fibrillation CHF (congestive heart failure) Qualifiers: Heart failure type: unspecified Heart failure chronicity: acute on chronic Qualified Code(s): I50.9 - Heart failure, unspecified Bipolar disorder Qualifiers: Active/Remission status: remission status unspecified Qualified Code(s): F31.9 - Bipolar disorder, unspecified Disposition: DC-01 TO HOME OR SELFCARE Is pt being admited?: Yes Condition: Stable Prescriptions: Mirtazapine [Remeron 15mg TAB] 7.5 mg PO QHS #14 tablet Losartan [Cozaar] 25 mg PO DAILY #30 tablet Tamsulosin [Flomax] 0.4 mg PO DAILY #30 capsule Potassium Chloride [K-Dur] 20 meq PO BID #60 tab Furosemide [Lasix TAB] 40 mg PO BID #60 tablet Metoprolol [Lopressor TAB] 50 mg PO TID #90 tablet Oxycodone HCl/Acetaminophen [Percocet 7.5/325 mg] 1 each PO Q6HR PRN #12 tablet PRN Reason: Pain Rivaroxaban [Xarelto] 20 mg PO DAILY #30 tablet Referrals: SAAD MAK MD [Primary Care Provider] - 3-5 Days Time of Disposition: 19:38
[2018-09-06] MEDS ORDERED: LOPRESSOR PO ONE (14:40)
--- NOTE | 2018-09-06 14:48 | XRay Report ---
CHEST 1 VIEW INDICATION: Chest Pain. COMPARISON: 08/08/2018 FINDINGS: Support devices: None. Heart: Enlarged but unchanged since the last exam. Pulmonary vessels: Normal. Lungs/Pleura: No acute air space or interstitial disease. Additional findings: None. IMPRESSION: 1. Cardiomegaly but no CHF . Signer Name: Alexandro Emanuel MD Signed: 09/06/2018 2:44 PM Workstation Name: [id number]
[2018-09-06 15:06] LABS: Hematocrit 28.1 % (35.5-45.6); Hemoglobin 9.3 gm/dl (11.8-15.2); Mean Corpuscular HGB Conc 33 % (32-34); Mean Corpuscular Volume 70 fl (84-94); Platelet Count 221 K/mm3 (140-440); Red Cell Distribution Width 19.8 % (13.2-15.2)
[2018-09-06 15:09] LABS: Mean Corpuscular Hemoglobin 23 pg (28-32)
[2018-09-06 15:16] LABS: INR 1.23 (0.87-1.13); Partial Thromboplastin Time 28.6 Sec. (24.2-36.6)
[2018-09-06 15:34] LABS: Alanine Aminotransferase 10 units/L (7-56); Albumin 3.7 g/dL (3.9-5); BUN/Creatinine Ratio 15; Blood Urea Nitrogen 19 mg/dL (9-20); Calcium 9.6 mg/dL (8.4-10.2); Hemolysis Index 1
[2018-09-06] MEDS ORDERED: MORPHINE IV ONE (16:31)
[2018-09-06] MEDS ORDERED: VANCOMYCIN/NS 1 GM/250 ML 1 GM/250 ML BAG IV ONE (16:54)
[2018-09-06] MEDS ORDERED: PERCOCET 5/325 PO ONE (17:28)
[2018-09-06] MEDS ORDERED: VANCOMYCIN 1,750 MG in NACL 0.9% 500 ML 500 ML IV ONE (17:30)
--- NOTE | 2018-09-06 18:06 | Event Note ---
Date: 09/06/18 73-year-old -[place] male very noncompliant and known from the previous visits comes in for bilateral leg swelling and pain. Patient has history of CHF hypertension atrial fibrillation and bipolar disorder. Patient says he lost all his medications last Monday. Patient was given full month's prescription on 08/20/2018. Not taking his medications. Patient follows with Dr. Veronica of [place] [facility]. On examination patient is not tachypneic Pedal edema present BNP around 14,400. Electrolytes are normal BUN and creatinine are normal . Diagnosis Congestive heart failure Pedal edema Hypertension All his prescriptions for Lasix potassium and blood pressure medications given Home discharge medication sheet on the chart Patient to be discharged home Patient to follow up with [facility] in 1-2 days. Return to emergency room if increasing shortness of breath or chest pain present.
[2018-09-06 18:57] VITALS: BP 128/79
[2018-09-06 19:13] LABS: Basophils % (Manual) 0 % (0.0-1.8); Hypochromasia 2+; Total Cells Counted 100
[2018-09-06 19:14] LABS: Anisocytosis 1+; Target Cells Rare
[2018-09-06 19:15] LABS: Large Platelets 1+; Platelet Estimate Consistent w Auto
== END 2018-09-06 19:33 | disposition home or self-care (01) ==
LOC: ED 13:25
DX: R60.0 Localized edema (principal); I11.0 Hypertensive heart disease with heart failure; I50.9 Heart failure, unspecified; F31.9 Bipolar disorder, unspecified; I48.91 Unspecified atrial fibrillation; I25.2 Old myocardial infarction; Z86.73 Personal history of transient ischemic attack (TIA), and cerebral infarction without residual deficits; Z86.718 Personal history of other venous thrombosis and embolism; Z91.14 Patient's other noncompliance with medication regimen; Z95.0 Presence of cardiac pacemaker; Z79.899 Other long term (current) drug therapy; Z91.013 Allergy to seafood
CPT/HCPCS: 36415; 71045; 80053; 83880; 84484; 85007; 85025; 85610; 85730; 93005; 93010; 99284; J3370; J7040

== ENCOUNTER 2018-10-05 22:03 | Emergency (ER) | payer MEDICARE ==
--- NOTE | 2018-10-06 01:42 | Emergency Department Report ---
ED Lower Extremity HPI - General Chief Complaint: Extremity Injury, Lower Stated Complaint: RIGHT LEG SWOLLEN AND RIGHT TOE NAIL Time Seen by Provider: 10/06/18 01:16 Source: patient Mode of arrival: Ambulatory Limitations: No Limitations - History of Present Illness Initial Comments: Patient is a 73-year-old male history of CHF DVT hypertension last admission 09/06/2018 for DVT and CHF exacerbation patient presents today for increased right lower leg pain and swelling takes it states is not taking xarelto because he takes an aspirin is not followed up with Dr. Doty states he has an appointment next week but right lower leg pain and swelling increased over past 2 weeks now pain with dorsoflexion , weight bearing , with sob, sympt oms are exacerbated by activity , symptoms are relieved by nothing pain is 7/10 at this time. MD Complaint: leg injury (leg pain swelling ) Onset/Timin -: week(s) Injury: Leg: Right (as bad) Type of Injury: other (denies injury ) Place: home Severity: moderate Severity scale (0 -10): 4 Improves With: nothing Worsens With: weight bearing, movement, palpation Associated Symptoms: swelling, ambulatory - Related Data Previous Rx's Medication Instructions Recorded Last Taken Type Furosemide [Lasix TAB] 40 mg PO BID #60 tablet 09/06/18 Unknown Rx Losartan [Cozaar] 25 mg PO DAILY #30 tablet 09/06/18 Unknown Rx Metoprolol [Lopressor TAB] 50 mg PO TID #90 tablet 09/06/18 Unknown Rx Mirtazapine [Remeron 15mg TAB] 7.5 mg PO QHS #14 tablet 09/06/18 Unknown Rx Oxycodone HCl/Acetaminophen 1 each PO Q6HR PRN #12 tablet 09/06/18 Unknown Rx [Percocet 7.5/325 mg] Potassium Chloride [K-Dur] 20 meq PO BID #60 tab 09/06/18 Unknown Rx Rivaroxaban [Xarelto] 20 mg PO DAILY #30 tablet 09/06/18 Unknown Rx Tamsulosin [Flomax] 0.4 mg PO DAILY #30 capsule 09/06/18 Unknown Rx Rivaroxaban [Xarelto] 20 mg PO QDAY #7 tab 10/06/18 Unknown Rx Allergies Allergy/AdvReac Type Severity Reaction Status Date / Time shellfish derived Allergy Itching Verified 08/05/18 16:06 ED Review of Systems ROS: Stated complaint: RIGHT LEG SWOLLEN AND RIGHT TOE NAIL Other details as noted in HPI Constitutional: denies: chills, fever Eyes: denies: eye pain, eye discharge, vision change ENT: denies: ear pain, throat pain Respiratory: denies: cough, shortness of breath, wheezing Cardiovascular: denies: chest pain, palpitations Endocrine: no symptoms reported (1), unexplained weight gain Gastrointestinal: denies: abdominal pain, nausea, diarrhea Genitourinary: denies: urgency, dysuria Musculoskeletal: joint swelling, arthralgia, myalgia, other (right lower leg swelling ). denies: back pain Skin: denies: rash, lesions Neurological: denies: headache, weakness, paresthesias Psychiatric: denies: anxiety, depression Hematological/Lymphatic: denies: easy bleeding, easy bruising ED Past Medical Hx - Past Medical History Previous Medical History?: Yes Hx Hypertension: Yes Hx CVA: Yes (2011) Hx Heart Attack/AMI: Yes Hx Congestive Heart Failure: Yes Hx Psychiatric Treatment: Yes (Bipolar,) Additional medical history: Afib, - Surgical History Past Surgical History?: Yes Hx Coronary Stent: Yes (x2) Additional Surgical History: Cardiac stents, Stent in Rt. leg - Social History Smoking Status: Never Smoker Substance Use Type: None - Medications Home Medications: Home Medications Medication Instructions Recorded Confirmed Last Taken Type Furosemide [Lasix TAB] 40 mg PO BID #60 tablet 09/06/18 Unknown Rx Losartan [Cozaar] 25 mg PO DAILY #30 tablet 09/06/18 Unknown Rx Metoprolol [Lopressor TAB] 50 mg PO TID #90 tablet 09/06/18 Unknown Rx Mirtazapine [Remeron 15mg TAB] 7.5 mg PO QHS #14 tablet 09/06/18 Unknown Rx Oxycodone HCl/Acetaminophen 1 each PO Q6HR PRN #12 tablet 09/06/18 Unknown Rx [Percocet 7.5/325 mg] Potassium Chloride [K-Dur] 20 meq PO BID #60 tab 09/06/18 Unknown Rx Rivaroxaban [Xarelto] 20 mg PO DAILY #30 tablet 09/06/18 Unknown Rx Tamsulosin [Flomax] 0.4 mg PO DAILY #30 capsule 09/06/18 Unknown Rx Rivaroxaban [Xarelto] 20 mg PO QDAY #7 tab 08/17/19 Unknown Rx ED Physical Exam - General Limitations: No Limitations General appearance: alert, in no apparent distress - Head Head exam: Present: atraumatic, normocephalic - Eye Eye exam: Present: normal appearance, PERRL, EOMI Pupils: Present: normal accommodation - ENT ENT exam: Present: mucous membranes moist - Neck Neck exam: Present: normal inspection, full ROM. Absent: tenderness, lymphadenopathy, thyromegaly - Respiratory Respiratory exam: Present: normal lung sounds bilaterally, decreased breath sounds (bilat lower lobes ). Absent: respiratory distress, wheezes, rales, rhonchi, stridor, chest wall tenderness - Cardiovascular Cardiovascular Exam: Present: regular rate, normal rhythm, normal heart sounds. Absent: systolic murmur, diastolic murmur, rubs, gallop - GI/Abdominal GI/Abdominal exam: Present: soft, normal bowel sounds. Absent: distended, tenderness, guarding, rebound, rigid, bruit, hernia - Rectal Rectal exam: Present: deferred - Extremities Exam Extremities exam: Present: full ROM, tenderness (right posterior lateral calf pain and swelling ), pedal edema, calf tenderness - Expanded Lower Extremity Exam Right Lower Leg exam: Present: full ROM, tenderness, swelling. Absent: abrasion, laceration, ecchymosis, deformity, crepidus, dislocation, erythema, palpable cord, Aden's sign Ankle exam: Present: full ROM, swelling. Absent: tenderness, abrasion, lac eration, ecchymosis, deformity, crepidus, dislocation, erythema, anterior draw sign Foot/Toe exam: Present: full ROM, swelling. Absent: tenderness, abrasion, laceration, ecchymosis, deformity, crepidus, dislocation, erythema, amputation, puncture wound, foreign body, calcaneal tenderness, tenderness at base of 5th metatarsal, nail avulsion, subungual hematoma Neuro vascular tendon exam: Absent: pulse deficit, motor deficit, sensory deficit, tendon deficit, foot drop, peroneal nerve deficit Gait: Positive: observed and limited by pain - Back Exam Back exam: Present: normal inspection, full ROM. Absent: tenderness, CVA tenderness (R), CVA tenderness (L), muscle spasm, paraspinal tenderness, rash noted - Neurological Exam Neurological exam: Present: alert, oriented X3, CN II-XII intact, reflexes normal. Absent: motor sensory deficit - Psychiatric Psychiatric exam: Present: normal affect, normal mood - Skin Skin exam: Present: warm, dry, intact, normal color. Absent: rash ED Course Vital Signs 10/05/18 22:05 Temperature 98.8 F Pulse Rate 100 H Respiratory 18 Rate Blood Pressure 140/78 O2 Sat by Pulse 98 Oximetry ED Lower Extremity MDM - Lab Data Result diagrams: 10/06/18 03:25 10/06/18 03:25 Labs 10/06/18 10/06/18 10/06/18 03:25 03:25 03:25 WBC 6.3 RBC 4.17 Hgb 9.5 L Hct 29.4 L MCV 70 L MCH 23 L MCHC 32 RDW 19.3 H Plt Count 167 Lymph % (Auto) 19.2 [place] % (Auto) 7.3 Eos % (Auto) 5.0 H Baso % (Auto) 1.4 Lymph # 1.2 [place] # 0.5 Eos # 0.3 Baso # 0.1 Seg Neutrophils % 67.1 Seg Neutrophils # 4.2 PT 15.8 H INR 1.29 H APTT 31.1 Sodium 133 L Potassium 3.9 Chloride 101.5 Carbon Dioxide 19 L Anion Gap 16 BUN 23 H Creatinine 1.1 Estimated GFR > 60 BUN/Creatinine Ratio 21 Glucose 114 H Calcium 9.7 Total Bilirubin 0.60 AST 16 ALT 15 Alkaline Phosphatase 80 Troponin T 0.045 H NT-Pro-B Natriuret Pep 9408 H Total Protein 7.6 Albumin 3.6 L Albumin/Globulin Ratio 0.9 Triglycerides 74 Cholesterol 135 LDL Cholesterol Direct 90 HDL Cholesterol 43 Cholesterol/HDL Ratio 3.13 - Radiology Data Radiology results: report reviewed, image reviewed Ordering Physician: ISRAEL RAMÍREZ NP Date of Service: 10/06/18 Procedure(s): XR chest routine 2V Accession Number(s): [id number] cc: ISRAEL RAMÍREZ NP Fluoro Time In Minutes: CHEST 2 VIEWS INDICATION / CLINICAL INFORMATION: Shortness of breath and history of CHF. COMPARISON: 09/06/2018. FINDINGS: SUPPORT DEVICES: None. HEART / MEDIASTINUM: Cardiomegaly is stable. Pulmonary vasculature is normal. LUNGS / PLEURA: No significant pulmonary or pleural abnormality. No pneumothorax. ADDITIONAL FINDINGS: No significant additional findings. IMPRESSION: No acute findings. I see no evidence of congestive heart failure. Signer Name: Romeo Blunt MD Signed: 10/06/2018 3:01 AM Workstation Name: [id number] Transcribed By: RT Dictated By: Romeo Blunt MD Electronically Authenticated By: Romeo Blunt MD Signed Date/Time: 10/06/18 030 DD/ 030 Ordering Physician: ISRAEL RAMÍREZ NP Date of Service: 10/06/18 Procedure(s): XR tibia fibula 2V RT Accession Number(s): [id number] cc: ISRAEL RAMÍREZ NP Fluoro Time In Minutes: RIGHT LOWER LEG 2 VIEWS INDICATION / CLINICAL INFORMATION: Right lower leg pain and swelling. COMPARISON: None available. FINDINGS: BONES / JOINT(S): There is no evidence of fracture or destructive lesion. There is a small plantar calcaneal spur. There are minimal degenerative changes involving the knee. SOFT TISSUES: There are atherosclerotic calcifications. ADDITIONAL FINDINGS: None. IMPRESSION: No acute abnormality. Signer Name: Romeo Blunt MD Signed: 10/06/2018 3:00 AM Workstation Name: [id number] Transcribed By: RT Dictated By: Romeo Blunt MD Electronically Authenticated By: Romeo Blunt MD Signed Date/Time: 10/06/18299 DD/ 0259 TD/TT: - Medical Decision Making Labs noted improved from last admission including BMP troponin right lower extrem ity distal pulses are intact +2 range of motion is intact plan patient given Xarelto 20 mg by mouth in ED refill prescription for 7 days until follow with PCP patient will do outpatient Doppler to rule out DVT right lower extremity patient will follow up with Dr. Doty in 2 days as scheduled patient verbalized agreement and understanding with same there is no shortness of breath no chest pain or dizziness no lightheadedness patient is ambulatory with cane to baseline at this time patient verbalized agreement and understanding of discharge plan DC'd to home in stable condition at this time pt will return to ed if symptoms worsen or not improving Critical care attestation.: If time is entered above; I have spent that time in minutes in the direct care of this critically ill patient, excluding procedure time. ED Disposition Clinical Impression: Lower extremity edema Leg pain Qualifiers: Laterality: right Qualified Code(s): M79.604 - Pain in right leg Disposition: TO HOME OR SELFCARE Is pt being admited?: No Does the pt Need Aspirin: No Condition: Stable Instructions: Peripheral Vascular Disorders (ED), Leg Edema (ED) Prescriptions: Rivaroxaban [Xarelto] 20 mg PO QDAY #7 tab Referrals: MICHAEL DOTY MD [Staff Physician] - 2-3 Days Time of Disposition: 04:58
--- NOTE | 2018-10-06 03:04 | XRay Report ---
RIGHT LOWER LEG 2 VIEWS INDICATION / CLINICAL INFORMATION: Right lower leg pain and swelling. COMPARISON: None available. FINDINGS: BONES / JOINT(S): There is no evidence of fracture or destructive lesion. There is a small plantar ca lcaneal spur. There are minimal degenerative changes involving the knee. SOFT TISSUES: There are atherosclerotic calcifications. ADDITIONAL FINDINGS: None. IMPRESSION: No acute abnormality. Signer Name: Romeo Blunt MD Signed: 10/06/2018 3:00 AM Workstation Name: [email or web address]
--- NOTE | 2018-10-06 03:06 | XRay Report ---
CHEST 2 VIEWS INDICATION / CLINICAL INFORMATION: Shortness of breath and history of CHF. COMPARISON: 09/06/2018. FINDINGS: SUPPORT DEVICES: None. HEART / MEDIASTINUM: Cardiomegaly is stable. Pulmonary vasculature is normal. LUNGS / PLEURA: No significant pulmonary or pleural abnormality. No pneumothorax. ADDITIONAL FINDINGS: No significant additional findings. IMPRESSION: No acute findings. I see no evidence of congestive heart failure. Signer Name: Romeo Blunt MD Signed: 10/06/2018 3:01 AM Workstation Name: [id number]
[2018-10-06 03:44] LABS: Basophils # (Auto) 0.1 K/mm3 (0.0-0.1); Basophils % (Auto) 1.4 % (0.0-1.8); Eosinophils # (Auto) 0.3 K/mm3 (0.0-0.4); Hematocrit 29.4 % (35.5-45.6); Hemoglobin 9.5 gm/dl (11.8-15.2); Lymphocytes # (Auto) 1.2 K/mm3 (1.2-5.4); Lymphocytes % (Auto) 19.2 % (13.4-35.0); Mean Corpuscular HGB Conc 32 % (32-34); Mean Corpuscular Volume 70 fl (84-94); Monocytes # (Auto) 0.5 K/mm3 (0.0-0.8); Monocytes % (Auto) 7.3 % (0.0-7.3); Platelet Count 167 K/mm3 (140-440); Red Blood Count 4.17 M/mm3 (3.65-5.03); Red Cell Distribution Width 19.3 % (13.2-15.2)
[2018-10-06 03:56] LABS: INR 1.29 (0.87-1.13)
[2018-10-06 03:57] LABS: Partial Thromboplastin Time 31.1 Sec. (24.2-36.6)
[2018-10-06 04:08] LABS: Alanine Aminotransferase 15 units/L (7-56); Albumin 3.6 g/dL (3.9-5); BUN/Creatinine Ratio 21; Blood Urea Nitrogen 23 mg/dL (9-20); Calcium 9.7 mg/dL (8.4-10.2); Hemolysis Index 0
[2018-10-06 04:39] LABS: Chol/HDL Ratio 3.13 %; HDL Cholesterol 43 mg/dL (40-59); LDL Cholesterol,Direct 90 mg/dL (50-130)
[2018-10-06] MEDS ORDERED: XARELTO PO ONE (05:00)
[2018-10-06 06:29] VITALS: BP 128/71
== END 2018-10-06 06:25 | disposition home or self-care (01) ==
LOC: ED 22:03
DX: R60.0 Localized edema (principal); I11.0 Hypertensive heart disease with heart failure; I50.9 Heart failure, unspecified; F31.9 Bipolar disorder, unspecified; Z86.73 Personal history of transient ischemic attack (TIA), and cerebral infarction without residual deficits; I25.2 Old myocardial infarction; Z95.5 Presence of coronary angioplasty implant and graft; Z98.890 Other specified postprocedural states; Z91.013 Allergy to seafood; Z79.899 Other long term (current) drug therapy; Z86.718 Personal history of other venous thrombosis and embolism
CPT/HCPCS: 36415; 71046; 80053; 80061; 83880; 84484; 85025; 85610; 85730

== ENCOUNTER 2018-10-06 10:44 | Emergency (ER) | payer MEDICARE ==
[2018-10-06 12:51] VITALS: BP 144/76
--- NOTE | 2018-10-06 12:58 | Emergency Department Report ---
Chief Complaint: Extremity Problem,Nontraumatic Stated Complaint: SWOLLEN LEG/R SIDE PAIN Time Seen by Provider: 10/06/18 12:44 - HPI History of Present Illness: Patient comes in for right leg patient . Patient was discharge at 6:02 am. Patient was discharge on Xarelto 20mg. Patient did not fill his medication. Patient is homeless. Patient having no chest pain or SOB. Patient is requesting food. MSE screening note: Focused history and physical exam performed. Due to findings the following was ordered: Will call US to see if they are able to do the study today. ED Disposition for MSE Condition: Stable Referrals: SANDRO MADERA MD [Primary Care Provider] - 3-5 Days
--- NOTE | 2018-10-06 15:11 | Vascular Lab Report ---
. VL venous duplex LE RT INDICATION / CLINICAL INFORMATION: swelling on right lower leg.. COMPARISON: None available. FINDINGS: No evidence of acute deep vein thrombosis. However, there does appear to be thrombus in the greater s aphenous vein (superficial venous system). In addition, there is slight echogenic wall thickening in the superficial vein proximally and distally, suggesting old thrombus. Also, there is a 6 cm area of decreased echogenicity in the soft tissues of the right lower leg at th e midcalf level. Exact etiology is uncertain, but this could represent hematoma. IMPRESSION: 1. No acute DVT. 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 2. Soft tissue "mass" laterally at the mid calf level, possibly hematoma. Suggest clinical correlatio n and follow-up. Signer Name: Panfilo Lewis MD Signed: 10/06/2018 3:07 PM Workstation Name: [id number]
== END 2018-10-06 17:50 | disposition left against medical advice (07) ==
LOC: ED 10:44
DX: M79.605 Pain in left leg (principal); Z53.21 Procedure and treatment not carried out due to patient leaving prior to being seen by health care provider

== ENCOUNTER 2018-10-07 14:36 | Emergency (ER) | payer MEDICARE ==
[2018-10-07 16:19] VITALS: BP 139/77
--- NOTE | 2018-10-07 16:23 | Emergency Department Report ---
Chief Complaint: Extremity Problem,Nontraumatic Stated Complaint: (R) LEG SWOLLEN/(L) LEG ABOVE KNEE PAIN Time Seen by Provider: 10/07/18 16:18 - HPI History of Present Illness: 73 y/o male comes in for chronic leg pain. Patient was seen her twice yesterday and than went to [facility] and was placed on Lasix. Patient has not gotten any of his medication filled. Patient denies any trauma, chest pain or sob. - ROS Review of Systems: bilateral leg pain and swellin. - Exam Physical Exam: Axo times 3. MSE screening note: Focused history and physical exam performed. Due to findings the following was ordered: ED Medical Decision Making - Radiology Data Radiology results: report reviewed Patient: YAMINI KOENIG MR#: [id number] : 1945 Acct:[id number] Age/Sex: 73 / M ADM Date: 10/07/18 Loc: ED Attending Dr: Ordering Physician: SILVINO NORWOOD Date of Service: 10/07/18 Procedure(s): XR femur 2+V LT Accession Number(s): [id number] cc: SILVINO NORWOOD Fluoro Time In Minutes: HISTORY:thigh pain with localized swelling. COMPARISON: None. TECHNIQUE: AP and lateral FINDINGS: Bones: No fracture or dislocation. Joint spaces: Maintained. Soft tissues: No significant abnormality. Additional findings: None. IMPRESSION: 1. No significant abnormality. Signer Name: Brian Ren MD Signed: 10/07/2018 5:25 PM Workstation Name: [id number] Transcribed By: Dictated By: Brian Ren MD Electronically Authenticated By: Brian Ren MD Signed Date/Time: 10/07/181724 DD/ 23 TD/TT: ED Disposition for MSE Clinical Impression: Pain of left thigh Disposition: -01 TO HOME OR SELFCARE Is pt being admited?: No Does the pt Need Aspirin: No Condition: Stable Instructions: Arthralgia (ED) Additional Instructions: Xray neg. Take over the counter Tylenol or Ibuprofen. Start taking medication that has been prescribed to you. Referrals: MICHAEL DOTY MD [Staff Physician] - 3-5 Days
[2018-10-07] MEDS ORDERED: TYLENOL PO ONE (16:27)
--- NOTE | 2018-10-07 17:29 | XRay Report ---
HISTORY:thigh pain with localized swelling. COMPARISON: None. TECHNIQUE: AP and lateral FINDINGS: Bones: No fracture or dislocation. Joint spaces: Maintained. Soft tissues: No significant abnormality. Additional findings: None. IMPRESSION: 1. No significant abnormality. Signer Name: Brian Ren MD Signed: 10/07/2018 5:25 PM Workstation Name: [id number]
== END 2018-10-07 18:25 | disposition home or self-care (01) ==
LOC: ED 14:36
DX: M79.652 Pain in left thigh (principal)

== ENCOUNTER 2018-10-08 19:25 | Emergency (ER) | payer MEDICARE ==
--- NOTE | 2018-10-08 20:09 | Emergency Department Report ---
ED General Adult HPI - General Chief complaint: Extremity Injury, Lower Stated complaint: RIGHT LEG PAIN Time Seen by Provider: 10/08/18 20:07 Source: patient, EMS Mode of arrival: Stretcher Limitations: No Limitations - History of Present Illness Initial comments: 73-year-old male with a history of DVT and CHF presents complaining of right leg pain. Patient has had multiple visits to the ER for the same leg pain. Patient has not been able to feel his well-developed therapy. Patient states he has an appointment tomorrow with this medication at that point the patient denies any chest pain or shortness of breath. Patient denies any recent falls. Patient states that he has run out of his oxycodone therapy is taking no masses or pain. Patient ambulates with a cane baseline. Severity scale (0 -10): 8 - Related Data Previous Rx's Medication Instructions Recorded Last Taken Type Furosemide [Lasix TAB] 40 mg PO BID #60 tablet 09/06/18 Unknown Rx Losartan [Cozaar] 25 mg PO DAILY #30 tablet 09/06/18 Unknown Rx Metoprolol [Lopressor TAB] 50 mg PO TID #90 tablet 09/06/18 Unknown Rx Mirtazapine [Remeron 15mg TAB] 7.5 mg PO QHS #14 tablet 09/06/18 Unknown Rx Oxycodone HCl/Acetaminophen 1 each PO Q6HR PRN #12 tablet 09/06/18 Unknown Rx [Percocet 7.5/325 mg] Potassium Chloride [K-Dur] 20 meq PO BID #60 tab 09/06/18 Unknown Rx Rivaroxaban [Xarelto] 20 mg PO DAILY #30 tablet 09/06/18 Unknown Rx Tamsulosin [Flomax] 0.4 mg PO DAILY #30 capsule 09/06/18 Unknown Rx Rivaroxaban [Xarelto] 20 mg PO QDAY #7 tab 10/06/18 Unknown Rx Allergies Allergy/AdvReac Type Severity Reaction Status Date / Time shellfish derived Allergy Itching Verified 08/05/18 16:06 ED Review of Systems ROS: Stated complaint: RIGHT LEG PAIN Other details as noted in HPI Constitutional: denies: chills, fever Eyes: denies: eye pain, eye discharge, vision change ENT: denies: ear pain, throat pain Respiratory: denies: cough, shortness of breath, wheezing Cardiovascular: denies: chest pain, palpitations Endocrine: no symptoms reported Gastrointestinal: denies: abdominal pain, nausea, diarrhea Genitourinary: denies: urgency, dysuria Musculoskeletal: joint swelling Skin: denies: rash, lesions Neurological: denies: headache, weakness, paresthesias Psychiatric: denies: anxiety, depression Hematological/Lymphatic: denies: easy bleeding, easy bruising ED Past Medical Hx - Past Medical History Hx Hypertension: Yes Hx CVA: Yes (2011) Hx Heart Attack/AMI: Yes Hx Congestive Heart Failure: Yes Hx Psychiatric Treatment: Yes (Bipolar,) Additional medical history: Afib, - Surgical History Hx Coronary Stent: Yes (x2) Additional Surgical History: Cardiac stents, Stent in Rt. leg - Social History Smoking Status: Never Smoker Substance Use Type: None - Medications Home Medications: Home Medications Medication Instructions Recorded Confirmed Last Taken Type Furosemide [Lasix TAB] 40 mg PO BID #60 tablet 09/06/18 Unknown Rx Losartan [Cozaar] 25 mg PO DAILY #30 tablet 09/06/18 Unknown Rx Metoprolol [Lopressor TAB] 50 mg PO TID #90 tablet 09/06/18 Unknown Rx Mirtazapine [Remeron 15mg TAB] 7.5 mg PO QHS #14 tablet 09/06/18 Unknown Rx Oxycodone HCl/Acetaminophen 1 each PO Q6HR PRN #12 tablet 09/06/18 Unknown Rx [Percocet 7.5/325 mg] Potassium Chloride [K-Dur] 20 meq PO BID #60 tab 09/06/18 Unknown Rx Rivaroxaban [Xarelto] 20 mg PO DAILY #30 tablet 09/06/18 Unknown Rx Tamsulosin [Flomax] 0.4 mg PO DAILY #30 capsule 09/06/18 Unknown Rx Rivaroxaban [Xarelto] 20 mg PO QDAY #7 tab 10/06/18 Unknown Rx ED Physical Exam - General Limitations: No Limitations General appearance: alert, in no apparent distress - Head Head exam: Present: atraumatic, normocephalic - Eye Eye exam: Present: normal appearance - ENT ENT exam: Present: mucous membranes moist - Neck Neck exam: Present: normal inspection - Respiratory Respiratory exam: Present: normal lung sounds bilaterally. Absent: respiratory distress - Cardiovascular Cardiovascular Exam: Present: regular rate, normal rhythm. Absent: systolic murmur, diastolic murmur, rubs, gallop - GI/Abdominal GI/Abdominal exam: Present: soft, normal bowel sounds - Rectal Rectal exam: Present: deferred - Extremities Exam Extremities exam: Present: normal inspection, other (2+ edema bilaterally with no active erythema or exudate) - Back Exam Back exam: Present: normal inspection - Neurological Exam Neurological exam: Present: alert, oriented X3 - Psychiatric Psychiatric exam: Present: normal affect, normal mood - Skin Skin exam: Present: warm, dry, intact, normal color. Absent: rash ED Course Vital Signs 10/08/18 19:26 Temperature 98.4 F Pulse Rate 116 H Respiratory 18 Rate Blood Pressure 115/63 [Left] O2 Sat by Pulse 97 Oximetry ED Medical Decision Making - Medical Decision Making Patient received 1 g of Tylenol while here in the emergency department. Patient given a dose of xarelto while in ER as his last dose was four days ago according to the patient. Patient states that he will reinitiate this therapy tomorrow after meeting with his PCP. Patient to be discharged to follow-up with PCP. - Differential Diagnosis DVT; Chronic Osteoarthritis; Myofascial Strain Critical care attestation.: If time is entered above; I have spent that time in minutes in the direct care of this critically ill patient, excluding procedure time. ED Disposition Clinical Impression: DVT (deep venous thrombosis) Disposition: TO HOME OR SELFCARE Is pt being admited?: No Does the pt Need Aspirin: No Condition: Stable Instructions: Deep Venous Thrombosis (ED) Time of Disposition: 21:03 Print Language: [place]ORE[place]
[2018-10-08] MEDS ORDERED: TYLENOL PO ONE (20:44)
[2018-10-08] MEDS ORDERED: XARELTO PO STA (20:58)
[2018-10-08 21:34] VITALS: BP 114/74
== END 2018-10-08 21:35 | disposition home or self-care (01) ==
LOC: ED 19:25
DX: I82.401 Acute embolism and thrombosis of unspecified deep veins of right lower extremity (principal); I11.0 Hypertensive heart disease with heart failure; I50.9 Heart failure, unspecified; I25.2 Old myocardial infarction; F31.9 Bipolar disorder, unspecified; Z86.73 Personal history of transient ischemic attack (TIA), and cerebral infarction without residual deficits; Z95.5 Presence of coronary angioplasty implant and graft; Z79.899 Other long term (current) drug therapy; Z91.013 Allergy to seafood

== ENCOUNTER 2018-10-09 06:38 | Emergency (ER) | payer MEDICARE ==
[2018-10-09] MEDS ORDERED: CARDIZEM IV ONE (08:15)
[2018-10-09] MEDS ORDERED: LASIX IV ONE (08:16)
[2018-10-09 08:52] LABS: Basophils # (Auto) 0.1 K/mm3 (0.0-0.1); Basophils % (Auto) 2.1 % (0.0-1.8); Eosinophils # (Auto) 0.2 K/mm3 (0.0-0.4); Eosinophils % (Auto) 2.8 % (0.0-4.3); Hematocrit 29.3 % (35.5-45.6); Hemoglobin 9.5 gm/dl (11.8-15.2); Lymphocytes # (Auto) 0.7 K/mm3 (1.2-5.4); Lymphocytes % (Auto) 12.2 % (13.4-35.0); Mean Corpuscular HGB Conc 32 % (32-34); Mean Corpuscular Volume 71 fl (84-94); Monocytes # (Auto) 0.4 K/mm3 (0.0-0.8); Monocytes % (Auto) 7.4 % (0.0-7.3); Platelet Count 153 K/mm3 (140-440); Red Blood Count 4.13 M/mm3 (3.65-5.03); Red Cell Distribution Width 19.4 % (13.2-15.2)
[2018-10-09 09:05] LABS: Alanine Aminotransferase 11 units/L (7-56); Albumin 3.4 g/dL (3.9-5); BUN/Creatinine Ratio 23; Blood Urea Nitrogen 25 mg/dL (9-20); Calcium 9.5 mg/dL (8.4-10.2); Hemolysis Index 8
[2018-10-09 10:41] VITALS: BP 149/70
--- NOTE | 2018-10-09 10:57 | Emergency Department Report ---
ED General Adult HPI - General Chief complaint: Extremity Injury, Lower Stated complaint: POSSIBLE BLOOD CLOTS Time Seen by Provider: 10/09/18 07:43 Source: patient, EMS Mode of arrival: Ambulatory Limitations: No Limitations - History of Present Illness Initial comments: She presents to the emergency department with a chief complaint of increased swelling of his legs bilaterally. Patient has a history of congestive heart failure and states that he is taking his Lasix at home.. 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 Patient denies chest pain, shortness of breath, abdominal pain. -: unknown Severity scale (0 -10): 1 Quality: aching Consistency: constant Improves with: none Worsens with: none Associated Symptoms: denies other symptoms Treatments Prior to Arrival: none - Related Data Previous Rx's Medication Instructions Recorded Last Taken Type Furosemide [Lasix TAB] 40 mg PO BID #60 tablet 09/06/18 Unknown Rx Losartan [Cozaar] 25 mg PO DAILY #30 tablet 09/06/18 Unknown Rx Metoprolol [Lopressor TAB] 50 mg PO TID #90 tablet 09/06/18 Unknown Rx Mirtazapine [Remeron 15mg TAB] 7.5 mg PO QHS #14 tablet 09/06/18 Unknown Rx Oxycodone HCl/Acetaminophen 1 each PO Q6HR PRN #12 tablet 09/06/18 Unknown Rx [Percocet 7.5/325 mg] Potassium Chloride [K-Dur] 20 meq PO BID #60 tab 09/06/18 Unknown Rx Rivaroxaban [Xarelto] 20 mg PO DAILY #30 tablet 09/06/18 Unknown Rx Tamsulosin [Flomax] 0.4 mg PO DAILY #30 capsule 09/06/18 Unknown Rx Rivaroxaban [Xarelto] 20 mg PO QDAY #7 tab 10/06/18 Unknown Rx Allergies Allergy/AdvReac Type Severity Reaction Status Date / Time shellfish derived Allergy Itching Verified 08/05/18 16:06 ED Review of Systems ROS: Stated complaint: POSSIBLE BLOOD CLOTS Other details as noted in HPI Comment: All other systems reviewed and negative Constitutional: denies: chills, fever Eyes: denies: eye pain, eye discharge, vision change ENT: denies: ear pain, throat pain Respiratory: denies: cough, shortness of breath, wheezing Cardiovascular: denies: chest pain, palpitations Endocrine: no symptoms reported Gastrointestinal: denies: abdominal pain, nausea, diarrhea Genitourinary: denies: urgency, dysuria Musculoskeletal: denies: back pain, joint swelling, arthralgia Skin: denies: rash, lesions Neurological: denies: headache, weakness, paresthesias Psychiatric: denies: anxiety, depression Hematological/Lymphatic: denies: easy bleeding, easy bruising ED Past Medical Hx - Past Medical History Hx Hypertension: Yes Hx CVA: Yes (2011) Hx Heart Attack/AMI: Yes Hx Congestive Heart Failure: Yes Hx Deep Vein Thrombosis: Yes Hx Psychiatric Treatment: Yes (Bipolar) Additional medical history: Afib, - Surgical History Hx Coronary Stent: Yes (x2) Additional Surgical History: Cardiac stents, Stent in Rt. leg - Social History Smoking Status: Never Smoker - Medications Home Medications: Home Medications Medication Instructions Recorded Confirmed Last Taken Type Furosemide [Lasix TAB] 40 mg PO BID #60 tablet 09/06/18 Unknown Rx Losartan [Cozaar] 25 mg PO DAILY #30 tablet 09/06/18 Unknown Rx Metoprolol [Lopressor TAB] 50 mg PO TID #90 tablet 09/06/18 Unknown Rx Mirtazapine [Remeron 15mg TAB] 7.5 mg PO QHS #14 tablet 09/06/18 Unknown Rx Oxycodone HCl/Acetaminophen 1 each PO Q6HR PRN #12 tablet 09/06/18 Unknown Rx [Percocet 7.5/325 mg] Potassium Chloride [K-Dur] 20 meq PO BID #60 tab 09/06/18 Unknown Rx Rivaroxaban [Xarelto] 20 mg PO DAILY #30 tablet 09/06/18 Unknown Rx Tamsulosin [Flomax] 0.4 mg PO DAILY #30 capsule 09/06/18 Unknown Rx Rivaroxaban [Xarelto] 20 mg PO QDAY #7 tab 10/06/18 Unknown Rx ED Physical Exam - General Limitations: No Limitations General appearance: alert, in no apparent distress - Head Head exam: Present: atraumatic, normocephalic - Eye Eye exam: Present: normal appearance, PERRL, EOMI - ENT ENT exam: Present: mucous membranes moist - Neck Neck exam: Present: normal inspection - Respiratory Respiratory exam: Present: normal lung sounds bilaterally. Absent: respiratory distress - Cardiovascular Cardiovascular Exam: Present: normal rhythm, irregular rhythm. Absent: systolic murmur, diastolic murmur, rubs, gallop - GI/Abdominal GI/Abdominal exam: Present: soft, normal bowel sounds. Absent: distended, tenderness - Rectal Rectal exam: Present: deferred - Extremities Exam Extremities exam: Present: other (pitting edema bilaterally) - Back Exam Back exam: Present: normal inspection - Neurological Exam Neurological exam: Present: alert, oriented X3 - Psychiatric Psychiatric exam: Present: normal affect, normal mood - Skin Skin exam: Present: warm, dry, intact, normal color. Absent: rash ED Course Vital Signs 10/09/18 10/09/18 10/09/18 06:46 07:43 08:50 Temperature 97.7 F 97.9 F Pulse Rate 131 H 125 H 145 H Respiratory 18 18 Rate Blood Pressure 142/89 131/86 Blood Pressure 151/98 [Right] O2 Sat by Pulse 100 98 Oximetry 10/09/18 10/09/18 09:14 10:40 Temperature Pulse Rate 117 H 105 H Respiratory Rate Blood Pressure Blood Pressure 142/94 149/70 [Right] O2 Sat by Pulse Oximetry ED Medical Decision Making - Lab Data Result diagrams: 10/09/18 08:27 10/09/18 08:27 Lab Results 10/09/18 10/09/18 Range/Units 08:27 08:27 WBC 5.7 (4.5-11.0) K/mm3 RBC 4.13 (3.65-5.03) M/mm3 Hgb 9.5 L (11.8-15.2) gm/dl Hct 29.3 L (35.5-45.6) % MCV 71 L (84-94) fl MCH 23 L (28-32) pg MCHC 32 (32-34) % RDW 19.4 H (13.2-15.2) % Plt Count 153 (140-440) K/mm3 Lymph % (Auto) 12.2 L (13.4-35.0) % Hoke % (Auto) 7.4 H (0.0-7.3) % Eos % (Auto) 2.8 (0.0-4.3) % Baso % (Auto) 2.1 H (0.0-1.8) % Lymph # 0.7 L (1.2-5.4) K/mm3 Hoke # 0.4 (0.0-0.8) K/mm3 Eos # 0.2 (0.0-0.4) K/mm3 Baso # 0.1 (0.0-0.1) K/mm3 Seg Neutrophils % 75.5 H (40.0-70.0) % Seg Neutrophils # 4.3 (1.8-7.7) K/mm3 Sodium 136 L (137-145) mmol/L Potassium 4.1 (3.6-5.0) mmol/L Chloride 103.4 (98-107) mmol/L Carbon Dioxide 20 L (22-30) mmol/L Anion Gap 17 mmol/L BUN 25 H (9-20) mg/dL Creatinine 1.1 (0.8-1.5) mg/dL Estimated GFR > 60 ml/min BUN/Creatinine Ratio 23 % Glucose 102 H (75-100) mg/dL Calcium 9.5 (8.4-10.2) mg/dL Total Bilirubin 0.60 (0.1-1.2) mg/dL AST 15 (5-40) units/L ALT 11 (7-56) units/L Alkaline Phosphatase 77 (35-129) units/L NT-Pro-B Natriuret Pep 7572 H (0-900) pg/mL Total Protein 7.5 (6.3-8.2) g/dL Albumin 3.4 L (3.9-5) g/dL Albumin/Globulin Ratio 0.8 % - EKG Data -: EKG Interpreted by Me - EKG Data When compared to previous EKG there are: other (irregularly irregular) - Medical Decision Making IV lasix given IV Cardizem given Patient states he has a history of atrial fibrillation and takes medications for it but is not sure if he has taken for the last couple of days Patient offered admission but declined Critical Care Time: Yes Critical care time in (mins) excluding proc time.: 35 Critical care attestation.: If time is entered above; I have spent that time in minutes in the direct care of this critically ill patient, excluding procedure time. ED Disposition Clinical Impression: CHF (congestive heart failure), Afib Disposition: TO HOME OR SELFCARE Is pt being admited?: No Does the pt Need Aspirin: No Condition: Stable Instructions: Heart Failure (ED), Atrial Fibrillation (ED) Additional Instructions: return if worse Referrals: HAO AVELAR MD [Primary Care Provider] - 3-5 Days [facility] [Provider Group] - 3-5 Days [facility] [Provider Group] - 3-5 Days Time of Disposition: 11:23
--- NOTE | 2018-10-09 11:01 | XRay Report ---
CHEST 1 VIEW INDICATION: CHF, shortness of breath. COMPARISON: 10/06/2018 FINDINGS: Support devices: None. Heart: Mild cardiomegaly is stable. Lungs/Pleura: Mild pulmonary venous congestion is identified although it is slightly decreased since the exam 3 days ago. No evidence for pneumonia, pleural effusion or pneumothorax. Additional findings: None. IMPRESSION: Mild cardiomegaly and pulmonary venous congestion. Lungs clear. Signer Name: Ray Isabel Jr, MD Signed: 10/09/2018 10:56 AM Workstation Name: [id number]
== END 2018-10-09 11:31 | disposition home or self-care (01) ==
LOC: ED 06:38
DX: I11.0 Hypertensive heart disease with heart failure (principal); I50.9 Heart failure, unspecified; I48.91 Unspecified atrial fibrillation; F31.9 Bipolar disorder, unspecified; Z95.1 Presence of aortocoronary bypass graft; Z86.73 Personal history of transient ischemic attack (TIA), and cerebral infarction without residual deficits; Z86.718 Personal history of other venous thrombosis and embolism; Z79.899 Other long term (current) drug therapy; Z91.013 Allergy to seafood
CPT/HCPCS: 36415; 71045; 80053; 83880; 85025; 93005; 93010; 96374; 96375; 99284; J1940

== ENCOUNTER 2018-10-10 05:39 | Emergency (ER) | payer MEDICARE ==
[2018-10-10] MEDS ORDERED: CARDIZEM IV ONE (06:41)
--- NOTE | 2018-10-10 06:41 | Cat Scan Report ---
CT head/brain wo con INDICATION / CLINICAL INFORMATION: Fall with head trauma and headache. TECHNIQUE: All CT scans at this location are performed using CT dose reduction for ALARA by means of automated e xposure control. COMPARISON: 06/15/2018. FINDINGS: There is a moderately large frontal scalp hematoma. There are multiple small areas of high density bl ood over the left parietal convexity which are subarachnoid/subdural. No mass effect is seen. The lar gest focus measures approximately 1.2 cm. The calvarium is intact. There is an incidental osteoma in the right frontal sinus. The other paranasal sinuses and mastoid air cells are clear. IMPRESSION: 1. Small areas of subarachnoid/subdural hemorrhage over the left parietal convexity without mass effe ct. 2. Moderately large frontal scalp hematoma without skull fracture. CRITICAL RESULT: Time of Discovery: 5:34 AM Time of Communication: 5:34 AM Licensed Practitioner Receiving Report: Dr. Owens. Signer Name: Romeo Blunt MD Signed: 10/10/2018 6:37 AM Workstation Name: [id number]
--- NOTE | 2018-10-10 06:44 | Cat Scan Report ---
CT cervical spine wo con INDICATION / CLINICAL INFORMATION: Fall with neck pain. TECHNIQUE: All CT scans at this location are performed using CT dose reduction for ALARA by means of automated e xposure control. COMPARISON: None available. FINDINGS: There is nonspecific lateral tilt of the head and neck to the left. The prevertebral soft tissues are normal. There is minimal spondylosis. I see no evidence of fracture or subluxation. There is heterot opic ossification in the ligamentum nuchae at the T1 level. I see no evidence of a herniated disc or epidural hematoma. The visualized lung apices are clear. IMPRESSION: No acute osseous abnormality is identified. Signer Name: Romeo Blunt MD Signed: 10/10/2018 6:40 AM Workstation Name: [id number]
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
[2018-10-10 07:33] LABS: Bacteria,Urine 1+ /HPF (Negative); Bilirubin,Urine NEG (Negative); Blood,Urine LG (Negative); Color,Urine Straw (Yellow); Mucus,Urine FEW /HPF; Protein,Urine <15 mg/dL mg/dL (Negative); Urobilinogen,Urine < 2.0 mg/dL (<2.0)
[2018-10-10 07:37] VITALS: BP 136/64
[2018-10-10 07:46] LABS: Amphetamine Screen,Urine PRESUMPTIVE NEGATIVE; Benzodiazepines Screen,Urine PRESUMPTIVE NEGATIVE; Cannabinoid Screen,Urine PRESUMPTIVE NEGATIVE; Cocaine Screen,Urine PRESUMPTIVE NEGATIVE; Methadone Screen,Urine PRESUMPTIVE NEGATIVE; Opiate Screen,Urine PRESUMPTIVE NEGATIVE
[2018-10-10 07:53] LABS: Basophils % (Auto) 0.5 % (0.0-1.8); Eosinophils % (Auto) 0.2 % (0.0-4.3); Hematocrit 30.7 % (35.5-45.6); Hemoglobin 9.9 gm/dl (11.8-15.2); Lymphocytes # (Auto) 0.7 K/mm3 (1.2-5.4); Lymphocytes % (Auto) 9.5 % (13.4-35.0); Mean Corpuscular HGB Conc 32 % (32-34); Mean Corpuscular Volume 70 fl (84-94); Monocytes # (Auto) 0.5 K/mm3 (0.0-0.8); Monocytes % (Auto) 6.4 % (0.0-7.3); Platelet Count 183 K/mm3 (140-440); Red Blood Count 4.37 M/mm3 (3.65-5.03); Red Cell Distribution Width 19.3 % (13.2-15.2)
[2018-10-10 07:58] LABS: Partial Thromboplastin Time 35.3 Sec. (24.2-36.6)
[2018-10-10 08:00] LABS: INR 3.4 (0.87-1.13)
[2018-10-10 08:09] LABS: Albumin 4.2 g/dL (3.9-5); Calcium 10.3 mg/dL (8.4-10.2)
== END 2018-10-10 08:35 | disposition other institution (70) ==
LOC: ED 05:39
DX: S00.83XA Contusion of other part of head, initial encounter (principal); I48.91 Unspecified atrial fibrillation; I11.0 Hypertensive heart disease with heart failure; I50.9 Heart failure, unspecified; F31.9 Bipolar disorder, unspecified; Z86.718 Personal history of other venous thrombosis and embolism; Z86.73 Personal history of transient ischemic attack (TIA), and cerebral infarction without residual deficits; Z91.013 Allergy to seafood; Z79.899 Other long term (current) drug therapy; Z95.1 Presence of aortocoronary bypass graft; Y08.89XA Assault by other specified means, initial encounter; Y93.89 Activity, other specified; Y92.89 Other specified places as the place of occurrence of the external cause; Y99.8 Other external cause status
CPT/HCPCS: 36415; 70450; 72125; 80053; 80307; 80320; 81001; 83880; 85025; 85610; 85730; 93005; 93010; 96374; G0480

== ENCOUNTER 2018-10-31 23:11 | Emergency (ER) | payer MEDICARE ==
[2018-10-31 23:33] VITALS: BP 120/66
[2018-11-01 00:22] LABS: Mean Corpuscular HGB Conc 32 % (32-34); Platelet Count 259 K/mm3 (140-440); Red Blood Count 4.12 M/mm3 (3.65-5.03); Red Cell Distribution Width 19.3 % (13.2-15.2)
[2018-11-01 00:26] LABS: Mean Corpuscular Volume 68 fl (84-94)
[2018-11-01 00:30] LABS: INR 1.31 (0.87-1.13)
[2018-11-01 00:50] LABS: Alanine Aminotransferase 12 units/L (7-56); Albumin 3.7 g/dL (3.9-5); BUN/Creatinine Ratio 32; Blood Urea Nitrogen 32 mg/dL (9-20); Calcium 9.7 mg/dL (8.4-10.2); Hemolysis Index 4
--- NOTE | 2018-11-01 03:22 | XRay Report ---
CHEST 2 VIEWS 0113 INDICATION / CLINICAL INFORMATION: SOB COMPARISON: 10/09/2018 FINDINGS: SUPPORT DEVICES: None. HEART / MEDIASTINUM: Prominent cardiomegaly LUNGS / PLEURA: Pulmonary vascularity appears within normal limits. Chronic changes are again seen al kyra fried with evidence of COPD. No areas of consolidation are seen. No pneumothorax. ADDITIONAL FINDINGS: No significant additional findings. IMPRESSION: No significant acute abnormality Signer Name: Tony Keyes MD Signed: 11/01/2018 3:18 AM Workstation Name: [id number]
--- NOTE | 2018-11-01 06:22 | Emergency Department Report ---
ED General Adult HPI - General Chief complaint: Extremity Injury, Lower Stated complaint: SWOLLEN LEGS Time Seen by Provider: 11/01/18 06:15 Source: patient Mode of arrival: Ambulatory Limitations: No Limitations - History of Present Illness Initial comments: Patient is a 73-year-old male that since emergency room complaints of bilateral lower extremity swelling and pain. Patient states his symptoms started 4 days ago. Patient's symptoms worsen. Patient's pain is 10 out of 10. Patient states his pain is better with rest. Patient states his pain is worse with palpation and movement. Patient states the pain is nonradiating. Patient states stabbing pain. Patient denies chest pain or shortness of breath. Patient denies fever and chills. -: Sudden Severity scale (0 -10): 10 Quality: stabbing Consistency: constant Improves with: rest Worsens with: movement, other Associated Symptoms: denies: confusion, chest pain, cough, diaphoresis, fever/chills, headaches, loss of appetite, malaise, nausea/vomiting, rash, seizure, shortness of breath, syncope, weakness Treatments Prior to Arrival: none - Related Data Previous Rx's Medication Instructions Recorded Last Taken Type Furosemide [Lasix TAB] 40 mg PO BID #60 tablet 09/06/18 Unknown Rx Losartan [Cozaar] 25 mg PO DAILY #30 tablet 09/06/18 Unknown Rx Metoprolol [Lopressor TAB] 50 mg PO TID #90 tablet 09/06/18 Unknown Rx Mirtazapine [Remeron 15mg TAB] 7.5 mg PO QHS #14 tablet 09/06/18 Unknown Rx Oxycodone HCl/Acetaminophen 1 each PO Q6HR PRN #12 tablet 09/06/18 Unknown Rx [Percocet 7.5/325 mg] Potassium Chloride [K-Dur] 20 meq PO BID #60 tab 09/06/18 Unknown Rx Rivaroxaban [Xarelto] 20 mg PO DAILY #30 tablet 09/06/18 Unknown Rx Tamsulosin [Flomax] 0.4 mg PO DAILY #30 capsule 09/06/18 Unknown Rx Rivaroxaban [Xarelto] 20 mg PO QDAY #7 tab 10/06/18 Unknown Rx Allergies Allergy/AdvReac Type Severity Reaction Status Date / Time shellfish derived Allergy Itching Verified 08/05/18 16:06 ED Review of Systems ROS: Stated complaint: SWOLLEN LEGS Other details as noted in HPI Constitutional: denies: chills, fever Eyes: denies: eye pain, eye discharge, vision change ENT: denies: ear pain, throat pain Respiratory: denies: cough, shortness of breath, wheezing Cardiovascular: denies: chest pain, palpitations Endocrine: no symptoms reported Gastrointestinal: denies: abdominal pain, nausea, diarrhea Genitourinary: denies: urgency, dysuria Musculoskeletal: denies: back pain, joint swelling, arthralgia Skin: denies: rash, lesions Neurological: denies: headache, weakness, paresthesias Psychiatric: denies: anxiety, depression Hematological/Lymphatic: denies: easy bleeding, easy bruising ED Past Medical Hx - Past Medical History Previous Medical History?: Yes Hx Hypertension: Yes Hx CVA: Yes (2011) Hx Heart Attack/AMI: Yes Hx Congestive Heart Failure: Yes Hx Deep Vein Thrombosis: Yes Hx Psychiatric Treatment: Yes (Bipolar) Additional medical history: Afib, - Surgical History Past Surgical History?: Yes Hx Coronary Stent: Yes (x2) Additional Surgical History: Cardiac stents, Stent in Rt. leg - Family History Family history: no significant - Social History Smoking Status: Never Smoker Substance Use Type: None - Medications Home Medications: Home Medications Medication Instructions Recorded Confirmed Last Taken Type Furosemide [Lasix TAB] 40 mg PO BID #60 tablet 09/06/18 Unknown Rx Losartan [Cozaar] 25 mg PO DAILY #30 tablet 09/06/18 Unknown Rx Metoprolol [Lopressor TAB] 50 mg PO TID #90 tablet 09/06/18 Unknown Rx Mirtazapine [Remeron 15mg TAB] 7.5 mg PO QHS #14 tablet 09/06/18 Unknown Rx Oxycodone HCl/Acetaminophen 1 each PO Q6HR PRN #12 tablet 09/06/18 Unknown Rx [Percocet 7.5/325 mg] Potassium Chloride [K-Dur] 20 meq PO BID #60 tab 09/06/18 Unknown Rx Rivaroxaban [Xarelto] 20 mg PO DAILY #30 tablet 09/06/18 Unknown Rx Tamsulosin [Flomax] 0.4 mg PO DAILY #30 capsule 09/06/18 Unknown Rx Rivaroxaban [Xarelto] 20 mg PO QDAY #7 tab 10/06/18 Unknown Rx ED Physical Exam - General Limitations: No Limitations General appearance: alert, in no apparent distress - Head Head exam: Present: atraumatic, normocephalic - Eye Eye exam: Present: normal appearance - ENT ENT exam: Present: mucous membranes moist - Neck Neck exam: Present: normal inspection - Respiratory Respiratory exam: Present: normal lung sounds bilaterally. Absent: respiratory distress - Cardiovascular Cardiovascular Exam: Present: regular rate, normal rhythm. Absent: systolic mur mur, diastolic murmur, rubs, gallop - GI/Abdominal GI/Abdominal exam: Present: soft, normal bowel sounds - Rectal Rectal exam: Present: deferred - Extremities Exam Extremities exam: Present: tenderness (bilateral lower extremity tenderness to palpation.), other (large amount of swelling noted to the lateral anterior leg, right greater than left. Fluctuant fluid collections noted along with redness.) - Back Exam Back exam: Present: normal inspection - Neurological Exam Neurological exam: Present: alert, oriented X3 - Psychiatric Psychiatric exam: Present: normal affect, normal mood - Skin Skin exam: Present: warm, dry, intact, normal color. Absent: rash ED Course Vital Signs 10/31/18 23:29 Temperature 98.6 F Pulse Rate 62 Respiratory 18 Rate Blood Pressure 120/66 O2 Sat by Pulse 95 Oximetry - Reevaluation(s) Reevaluation #1: I discussed treatment options with patient. Patient refused. Patient signed out AMA. Patient left the hospital AGAINST MEDICAL ADVICE. Risks discussed with patient. Patient voiced understanding of risks. 11/01/18 06:38 ED Medical Decision Making - Lab Data Result diagrams: 10/31/18 23:48 10/31/18 23:48 - Medical Decision Making is a 73-year-old male that presents emergency room with complaints of lower extremity pain and swelling. Patient's exam shows 2 large fluid co llections in the lateral anterior lower leg. I plan admitting the patient to the hospitalist service for further evaluation treatment. The patient refused and patient signed out AMA. Risk was discussed with patient. Patient voiced understanding of risks. Patient is of sound mind and body. Patient left the hospital AGAINST MEDICAL ADVICE. - Differential Diagnosis leg pain and swelling. Hematomas. Seroma. Cellulitis. Abscess. Critical care attestation.: If time is entered above; I have spent that time in minutes in the direct care of this critically ill patient, excluding procedure time. ED Disposition Clinical Impression: CHF (congestive heart failure) Qualifiers: Heart failure type: unspecified Heart failure chronicity: unspecified Qualified Code(s): I50.9 - Heart failure, unspecified Pain and swelling of lower extremity Qualifiers: Laterality: unspecified laterality Qualified Code(s): M79.606 - Pain in leg, unspecified; M79.89 - Other specified soft tissue disorders Cellulitis Qualifiers: Site of cellulitis: extremity Site of cellulitis of extremity: lower extremity Laterality: unspecified laterality Qualified Code(s): L03.119 - Cellulitis of unspecified part of limb Disposition: DC-07 LEFT AGAINST MED ADVICE Is pt being admited?: No Does the pt Need Aspirin: No Condition: Undetermined Time of Disposition: 06:38
[2018-11-01] MEDS ORDERED: CLEOCIN 300 MG/50 mL 300 MG/50 ML BAG IV ONE (06:37)
== END 2018-11-01 06:37 | disposition left against medical advice (07) ==
LOC: ED 23:11
DX: L03.116 Cellulitis of left lower limb (principal); I11.0 Hypertensive heart disease with heart failure; I50.9 Heart failure, unspecified; F31.9 Bipolar disorder, unspecified; I48.91 Unspecified atrial fibrillation; Z86.73 Personal history of transient ischemic attack (TIA), and cerebral infarction without residual deficits; Z86.718 Personal history of other venous thrombosis and embolism; Z91.013 Allergy to seafood; Z79.899 Other long term (current) drug therapy; Z95.1 Presence of aortocoronary bypass graft
CPT/HCPCS: 36415; 71046; 80053; 83880; 84484; 85027; 85610; 99283

== ENCOUNTER 2018-11-14 13:32 | Emergency (ER) | payer MEDICARE ==
[2018-11-14 15:46] LABS: Calcium 9.5 mg/dL (8.4-10.2)
[2018-11-14 15:50] LABS: Hematocrit 32.7 % (35.5-45.6); Hemoglobin 10.4 gm/dl (11.8-15.2); Mean Corpuscular HGB Conc 32 % (32-34); Platelet Count 253 K/mm3 (140-440); Red Blood Count 4.76 M/mm3 (3.65-5.03); Red Cell Distribution Width 19.8 % (13.2-15.2)
[2018-11-14 15:51] LABS: Mean Corpuscular Volume 69 fl (84-94)
[2018-11-14] MEDS ORDERED: SODIUM CHLORIDE 0.9% 500 ML 500 ML IV ONE (16:46)
--- NOTE | 2018-11-14 16:47 | Emergency Department Report ---
ED General Adult HPI - General Chief complaint: Alcohol Stated complaint: ETOH Time Seen by Provider: 11/14/18 16:29 Source: patient, EMS, RN notes reviewed, old records reviewed Mode of arrival: Stretcher Limitations: Other (initially sleep and hard to arouse, then awakes without difficulty) - History of Present Illness Initial comments: This patient is a poor historian. This patient is well known to this provider previously. Please see my recent note. This is a 73-year-old gentleman, chronic A. fib, reportedly on permanent anticoagulation, with chronic psychiatric disease. She is brought to the hospital by EMS. Apparently, patient found in a hotel, and there was a question about alcohol intoxication. Initially in the emergency room, the patient is sleepy. He is arousable, follows commands. He denies physical pain. While in the ER, he becomes much more awake, continues to deny physical pain, and makes multiple requests for food. I saw this patient a few days ago for similar symptoms. He had an extensive and thorough laboratory evaluation, include a unremarkable urinalysis, negative urine culture, unremarkable ammonia level, unremarkable TSH. -: unknown Radiation: other Quality: other Consistency: other Improves with: other Worsens with: other - Related Data Previous Rx's Medication Instructions Recorded Last Taken Type Furosemide [Lasix TAB] 40 mg PO BID #60 tablet 09/06/18 Unknown Rx Losartan [Cozaar] 25 mg PO DAILY #30 tablet 09/06/18 Unknown Rx Metoprolol [Lopressor TAB] 50 mg PO TID #90 tablet 09/06/18 Unknown Rx Mirtazapine [Remeron 15mg TAB] 7.5 mg PO QHS #14 tablet 09/06/18 Unknown Rx Oxycodone HCl/Acetaminophen 1 each PO Q6HR PRN #12 tablet 09/06/18 Unknown Rx [Percocet 7.5/325 mg] Potassium Chloride [K-Dur] 20 meq PO BID #60 tab 09/06/18 Unknown Rx Rivaroxaban [Xarelto] 20 mg PO DAILY #30 tablet 09/06/18 Unknown Rx Tamsulosin [Flomax] 0.4 mg PO DAILY #30 capsule 09/06/18 Unknown Rx Rivaroxaban [Xarelto] 20 mg PO QDAY #7 tab 10/06/18 Unknown Rx Allergies Allergy/AdvReac Type Severity Reaction Status Date / Time shellfish derived Allergy Itching Verified 08/05/18 16:06 ED Review of Systems ROS: Stated complaint: ETOH Other details as noted in HPI Constitutional: denies: fever Eyes: denies: eye discharge ENT: denies: epistaxis Respiratory: denies: wheezing Cardiovascular: denies: syncope Gastrointestinal: denies: abdominal pain, nausea, vomiting Musculoskeletal: denies: back pain Neurological: as per HPI ED Past Medical Hx - Past Medical History Hx Hypertension: Yes Hx CVA: Yes (2011) Hx Heart Attack/AMI: Yes Hx Congestive Heart Failure: Yes Hx Deep Vein Thrombosis: Yes Hx Psychiatric Treatment: Yes (Bipolar) Additional medical history: Afib, - Surgical History Hx Coronary Stent: Yes (x2) Additional Surgical History: Cardiac stents, Stent in Rt. leg - Social History Smoking Status: Never Smoker Substance Use Type: Alcohol - Medications Home Medications: Home Medications Medication Instructions Recorded Confirmed Last Taken Type Furosemide [Lasix TAB] 40 mg PO BID #60 tablet 09/06/18 Unknown Rx Losartan [Cozaar] 25 mg PO DAILY #30 tablet 09/06/18 Unknown Rx Metoprolol [Lopressor TAB] 50 mg PO TID #90 tablet 09/06/18 Unknown Rx Mirtazapine [Remeron 15mg TAB] 7.5 mg PO QHS #14 tablet 09/06/18 Unknown Rx Oxycodone HCl/Acetaminophen 1 each PO Q6HR PRN #12 tablet 09/06/18 Unknown Rx [Percocet 7.5/325 mg] Potassium Chloride [K-Dur] 20 meq PO BID #60 tab 09/06/18 Unknown Rx Rivaroxaban [Xarelto] 20 mg PO DAILY #30 tablet 09/06/18 Unknown Rx Tamsulosin [Flomax] 0.4 mg PO DAILY #30 capsule 09/06/18 Unknown Rx Rivaroxaban [Xarelto] 20 mg PO QDAY #7 tab 10/06/18 Unknown Rx ED Physical Exam - General Limitations: Other (patient is initially sleepy, then becomes quite arousable) General appearance: alert, lethargic ( patient initially sleepy, then becomes quite arousable) - Head Head exam: Present: atraumatic, normocephalic - Eye Eye exam: Present: normal appearance, EOMI. Absent: nystagmus - ENT ENT exam: Present: normal exam, normal orophraynx, mucous membranes moist, normal external ear exam - Neck Neck exam: Present: normal inspection, full ROM. Absent: tenderness, meningismus - Respiratory Respiratory exam: Present: normal lung sounds bilaterally. Absent: respiratory distress - Cardiovascular Cardiovascular Exam: Present: regular rate, irregular rhythm, normal heart sounds. Absent: bradycardia, tachycardia, systolic murmur, diastolic murmur, rubs, gallop - GI/Abdominal GI/Abdominal exam: Present: soft. Absent: distended, tenderness, guarding, rebound, rigid, pulsatile mass - Rectal Rectal exam: Present: deferred - Extremities Exam Extremities exam: Present: full ROM, other (2+ pulses noted in the bilateral upper, lower extremities. Compartments soft. No long bony tenderness. The pelvis is stable.). Absent: normal inspection (chronic discoloration and hyperpigmentation noted to the bilateral lower extremities. There is chronic lower extremity minimal edema. There is no pus or streaking. There is no tenderness.), calf tenderness - Back Exam Back exam: Present: normal inspection. Absent: tenderness, CVA tenderness (R), CVA tenderness (L), paraspinal tenderness, vertebral tenderness - Neurological Exam Neurological exam: Present: alert, reflexes normal (Extraocular movements intact. Tongue midline. No facial droop. Facial sensation intact to light touch in the V1, V2, V3 distribution bilaterally. 5 and 5 strength in 4 extremities.. Sensation is intact to light touch in 4 extremities.) - Psychiatric Psychiatric exam: Present: agitated - Skin Skin exam: Present: warm, dry, intact, normal color. Absent: rash ED Course Vital Signs 11/14/18 11/14/18 11/14/18 13:40 13:45 13:54 Temperature 98.0 F Pulse Rate 92 H 86 85 Respiratory 17 19 18 Rate Blood Pressure 98/49 101/56 Blood Pressure [Right] O2 Sat by Pulse 97 98 Oximetry 11/14/18 11/14/18 11/14/18 14:00 14:15 14:30 Temperature Pulse Rate 85 91 H 93 H Respiratory 19 27 H 20 Rate Blood Pressure 98/47 98/47 82/46 Blood Pressure [Right] O2 Sat by Pulse 98 96 100 Oximetry 11/14/18 11/14/18 11/14/18 14:45 15:00 15:15 Temperature Pulse Rate 85 75 95 H Respiratory 19 21 21 Rate Blood Pressure 86/48 81/46 90/46 Blood Pressure [Right] O2 Sat by Pulse 97 98 98 Oximetry 11/14/18 11/14/18 11/14/18 15:30 15:45 16:00 Temperature Pulse Rate 67 88 84 Respiratory 19 22 28 H Rate Blood Pressure 94/47 100/54 87/51 Blood Pressure [Right] O2 Sat by Pulse 98 94 99 Oximetry 11/14/18 11/14/18 11/14/18 16:15 16:30 16:45 Temperature Pulse Rate 72 78 86 Respiratory 24 20 18 Rate Blood Pressure 83/53 78/45 98/53 Blood Pressure [Right] O2 Sat by Pulse 93 90 98 Oximetry 11/14/18 11/14/18 11/14/18 17:00 17:15 17:30 Temperature 99.0 F Pulse Rate 93 H 79 89 Respiratory 19 12 18 Rate Blood Pressure 89/68 107/52 Blood Pressure 107/52 [Right] O2 Sat by Pulse 97 100 97 Oximetry - EJ/Peripheral Line Neck L Time Out Performed: Yes Indications: nurses unable to establis Skin Cleansed in Sterile Fashion: Yes Size: 20 Dressing Placed: Tegaderm Patient Tolerated Procedure: well ED Medical Decision Making - Lab Data Result diagrams: 11/14/18 14:57 11/14/18 14:57 Vital Signs 11/14/18 11/14/18 11/14/18 13:40 13:45 13:54 Temperature 98.0 F Pulse Rate 92 H 86 85 Respiratory 17 19 18 Rate Blood Pressure 98/49 101/56 Blood Pressure [Right] O2 Sat by Pulse 97 98 Oximetry 11/14/18 11/14/18 11/14/18 14:00 14:15 14:30 Temperature Pulse Rate 85 91 H 93 H Respiratory 19 27 H 20 Rate Blood Pressure 98/47 98/47 82/46 Blood Pressure [Right] O2 Sat by Pulse 98 96 100 Oximetry 11/14/18 11/14/18 11/14/18 14:45 15:00 15:15 Temperature Pulse Rate 85 75 95 H Respiratory 19 21 21 Rate Blood Pressure 86/48 81/46 90/46 Blood Pressure [Right] O2 Sat by Pulse 97 98 98 Oximetry 11/14/18 11/14/18 11/14/18 15:30 15:45 16:00 Temperature Pulse Rate 67 88 84 Respiratory 19 22 28 H Rate Blood Pressure 94/47 100/54 87/51 Blood Pressure [Right] O2 Sat by Pulse 98 94 99 Oximetry 11/14/18 11/14/18 11/14/18 16:15 16:30 16:45 Temperature Pulse Rate 72 78 86 Respiratory 24 20 18 Rate Blood Pressure 83/53 78/45 98/53 Blood Pressure [Right] O2 Sat by Pulse 93 90 98 Oximetry 11/14/18 11/14/18 11/14/18 17:00 17:15 17:30 Temperature 99.0 F Pulse Rate 93 H 79 89 Respiratory 19 12 18 Rate Blood Pressure 89/68 107/52 Blood Pressure 107/52 [Right] O2 Sat by Pulse 97 100 97 Oximetry Lab Results 11/14/18 11/14/18 11/14/18 Range/Units 14:57 14:57 14:57 WBC (4.5-11.0) K/mm3 RBC (3.65-5.03) M/mm3 Hgb (11.8-15.2) gm/dl Hct (35.5-45.6) % MCV (84-94) fl MCH (28-32) pg MCHC (32-34) % RDW (13.2-15.2) % Plt Count (140-440) K/mm3 Lymph % (Auto) [place] % (Auto) Eos % (Auto) Baso % (Auto) Lymph # [place] # Eos # Baso # Seg Neutrophils % Seg Neutrophils # Sodium 139 (137-145) mmol/L Potassium 3.8 (3.6-5.0) mmol/L Chloride 97.5 L (98-107) mmol/L Carbon Dioxide 29 (22-30) mmol/L Anion Gap 16 mmol/L BUN 21 H (9-20) mg/dL Creatinine 1.6 H (0.8-1.5) mg/dL Estimated GFR 51 ml/min BUN/Creatinine Ratio 13 % Glucose 113 H (75-100) mg/dL Calcium 9.5 (8.4-10.2) mg/dL Salicylates < 0.3 L (2.8-20.0) mg/dL Acetaminophen < 5.0 L (10.0-30.0) ug/mL Plasma/Serum Alcohol (0-0.07) % 11/14/18 11/14/18 Range/Units 14:57 14:57 WBC 5.6 (4.5-11.0) K/mm3 RBC 4.76 (3.65-5.03) M/mm3 Hgb 10.4 L (11.8-15.2) gm/dl Hct 32.7 L (35.5-45.6) % MCV 69 L (84-94) fl MCH 22 L (28-32) pg MCHC 32 (32-34) % RDW 19.8 H (13.2-15.2) % Plt Count 253 (140-440) K/mm3 Lymph % (Auto) Retirement Administrator [place] % (Auto) Retirement Administrator Eos % (Auto) Retirement Administrator Baso % (Auto) Retirement Administrator Lymph # Retirement Administrator [place] # Retirement Administrator Eos # Retirement Administrator Baso # Retirement Administrator Seg Neutrophils % Retirement Administrator Seg Neutrophils # Retirement Administrator Sodium (137-145) mmol/L Potassium (3.6-5.0) mmol/L Chloride (98-107) mmol/L Carbon Dioxide (22-30) mmol/L Anion Gap mmol/L BUN (9-20) mg/dL Creatinine (0.8-1.5) mg/dL Estimated GFR ml/min BUN/Creatinine Ratio % Glucose (75-100) mg/dL Calcium (8.4-10.2) mg/dL Salicylates (2.8-20.0) mg/dL Acetaminophen (10.0-30.0) ug/mL Plasma/Serum Alcohol < 0.01 (0-0.07) % - EKG Data 11/14/18 19:00 Today's EKG is unchanged from prior. This is atrial fibrillation, 93 bpm, left axis deviation, left ventricular hypertrophy, poor R-wave progression, there is no endorsement of chest pain, the EKG is not consistent with ST elevation myocardial infarction - Radiology Data Radiology results: report reviewed, image reviewed Print Report Referring Physician: KRYSTYNA RODARTE Patient Name: YAMINI KOENIG Date of : 1945 Sex: Male Report Date: 2018-11-14 Report Status: Finalized Findings [facility] [address] [place] [address] XRay Report Signed Patient: YAMINI KOENIG MR#: [id number] : 1945 Acct:[id number] Age/Sex: 73 / M ADM Date: 11/14/18 Loc: ED Attending Dr: Ordering Physician: KRYSTYNA RODARTE MD Date of Service: 11/14/18 Procedure(s): XR chest 1V ap Accession Number(s): [id number] cc: KRYSTYNA RODARTE MD Fluoro Time In Minutes: CHEST 1 VIEW INDICATION / CLINICAL INFORMATION: ams weak hy potensive. COMPARISON: None available. FINDINGS: SUPPORT DEVICES: None. HEART / MEDIASTINUM: Severe cardiomegaly LUNGS / PLEURA: Small right pleural effusion. The lungs are otherwise clear. Signer Name: Regulo Rowe MD Signed: 11/14/2018 5:31 PM Workstation Name: [id number] Transcribed By: BC Dictated By: Regulo Rowe MD Electronically Authenticated By: Regulo Rowe MD Signed Date/Time: 11/14/18 1731 Print Report Referring Physician: KRYSTYNA RODARTE Patient Name: YAMINI KOENIG Date of : 1945 Sex: Male Report Date: 2018-11-14 Report Status: Finalized Findings [address] [address] Cat Scan Report Signed Patient: YAMINI KOENIG MR#: [id number] : 1945 Acct:A [id number] Age/Sex: 73 / M ADM Date: 11/14/18 Loc: ED Attending Dr: Ordering Physician: KRYSTYNA RODARTE MD Date of Service: 11/14/18 Procedure(s): CT head/brain wo con Accession Number(s): [id number] cc: KRYSTYNA RODARTE MD CT BRAIN: 11/14/2018 INDICATION / CLINICAL INFORMATION: Altered mental status. Weakness.. COMPARISON: 11/10/2018 FINDINGS: BRAIN/INTRACRANIAL STRUCTURES: Unenhanced CT images of the brain were obtained and compared to the prior exam from 11/10/2018. There has been no change. There is no evidence of acute abnormality. Ventricles and sulci are prominent in size, consistent with diffuse cerebral atrophy. There is no CT evidence of acute ischemic injury, hemorrhage, or mass. There are no abnormal extra-axial fluid collections. Atherosclerotic vascular calcifications are present in the distal internal carotid arteries and vertebral arteries. 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 This is of no clinical significant. EXTRACRANIAL STRUCTURES: Unremarkable. IMPRESSION: No acute abnormality. All CT scans at this location are performed using dose reduction to ALARA by means of automated exposure control. Signer Name: Jabier Del Toro MD Signed: 11/14/2018 6:42 PM Workstation Name: [id number] Transcribed By: SHARI Dictated By: Jabier Del Toro MD Electronically Authenticated By: Jabier Del Toro MD Signed Date/Time: 11/14/18 1842 - Medical Decision Making Differential diagnosis, including not limited to: Homelessness, no disorder, case management consult, cranial lesion/injury, chronic psychiatric disease, case management issues, alcohol intoxication Assessment and plan: 73-year-old gentleman, multiple ER visits for multiple complaints, now awake, alert, not endorsing any physical pain or emergent complaint, making multiple requests for food. He does not endorse homicidality or suicidality. Screening laboratory studies today are basically unremarkable with exception of minimal renal insufficiency. CT scan of the brain was negative. Recent laboratory studies are reviewed and appreciated. Magnesium, creatinine kinase, valproic acid levels have been ordered and are pending at this time. At this point time, patient is awake and alert, his primary complaint is requesting food, he does not appear to have an emergent medical condition at this time. He does not appear to have an emergent psychiatric condition at this time. Critical care attestation.: If time is entered above; I have spent that time in minutes in the direct care of this critically ill patient, excluding procedure time. ED Disposition Clinical Impression: Bipolar disorder, Chronic atrial fibrillation Disposition: DC-01 TO HOME OR SELFCARE Is pt being admited?: No Does the pt Need Aspirin: No Condition: Stable Additional Instructions: Continue outpatient medications. Follow up with a primary care doctor within the next week. Return to the emergency room right away with new, worsening or different symptoms, or symptoms not present on the initial emergency room evaluation. Avoid consumption of alcohol, and recreational drugs. Referrals: [facility] [Provider Group] - 3-5 Days [facility] [Provider Group] - 3-5 Days
--- NOTE | 2018-11-14 17:35 | XRay Report ---
CHEST 1 VIEW INDICATION / CLINICAL INFORMATION: ams weak hypotensive. COMPARISON: None available. FINDINGS: SUPPORT DEVICES: None. HEART / MEDIASTINUM: Severe cardiomegaly LUNGS / PLEURA: Small right pleural effusion. The lungs are otherwise clear. Signer Name: Regulo Rowe MD Signed: 11/14/2018 5:31 PM Workstation Name: [id number]
--- NOTE | 2018-11-14 18:46 | Cat Scan Report ---
CT BRAIN: 11/14/2018 INDICATION / CLINICAL INFORMATION: Altered mental status. Weakness.. COMPARISON: 11/10/2018 FINDINGS: BRAIN/INTRACRANIAL STRUCTURES: Unenhanced CT images of the brain were obtained and compared to the pr ior exam from 11/10/2018. There has been no change. There is no evidence of acute abnormality. Ventricles and sulci are prominent in size, consistent wit h diffuse cerebral atrophy. There is no CT evidence of acute ischemic injury, hemorrhage, or mass. There are no abnormal extra-ax ial fluid collections. Atherosclerotic vascular calcifications are present in the distal internal carotid arteries and verte bral arteries. 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 This is of no clinical significant. EXTRACRANIAL STRUCTURES: Unremarkable. IMPRESSION: No acute abnormality. All CT scans at this location are performed using dose reduction to ALARA by means of automated expos ure control. Signer Name: Jabier Del Toro MD Signed: 11/14/2018 6:42 PM Workstation Name: [id number]
[2018-11-14 20:55] VITALS: BP 114/48
== END 2018-11-14 20:40 | disposition home or self-care (01) ==
LOC: ED 13:32
DX: F31.9 Bipolar disorder, unspecified (principal); I48.2 Chronic atrial fibrillation; I25.2 Old myocardial infarction; I11.0 Hypertensive heart disease with heart failure; I50.9 Heart failure, unspecified; Z86.718 Personal history of other venous thrombosis and embolism; Z86.73 Personal history of transient ischemic attack (TIA), and cerebral infarction without residual deficits; Z95.5 Presence of coronary angioplasty implant and graft; Z79.899 Other long term (current) drug therapy; Z91.013 Allergy to seafood
CPT/HCPCS: 36415; 36556; 70450; 71045; 80048; 80164; 82271; 82550; 83735; 85025; 93005; 93010; 99284; J7040; 80320; G0480

== ENCOUNTER 2018-11-19 13:20 | Emergency (ER) | payer MEDICARE ==
--- NOTE | 2018-11-19 14:17 | Emergency Department Report ---
ED General Adult HPI - General Chief complaint: Back Pain/Injury Stated complaint: BACK/ABD PAIN Time Seen by Provider: 11/19/18 14:08 Source: patient, EMS Mode of arrival: Stretcher Limitations: No Limitations - History of Present Illness Initial comments: 73-year-old male with a history of bipolar d/o, CHF, Afib, states he was sitting on the side of the road when police pulled over to see if he was okay. Patient states he told him that he sat down, because he was tired of walking. Patient reports he is homeless. He states he initially told police that he did not want medical attention, but EMS was called anyway. Patient states he kept urging him to get medical attention so he agree. Patient states he is here today for his back pain. He states several days ago he sat on a concrete bench to hard and hurt his back. Patient states he was seen by her physician 2 days ago and was given a prescription for pain medicine which she does not know the name of. Severity scale (0 -10): 10 - Related Data Previous Rx's Medication Instructions Recorded Last Taken Type Furosemide [Lasix TAB] 40 mg PO BID #60 tablet 09/06/18 Unknown Rx Losartan [Cozaar] 25 mg PO DAILY #30 tablet 09/06/18 Unknown Rx Metoprolol [Lopressor TAB] 50 mg PO TID #90 tablet 09/06/18 Unknown Rx Mirtazapine [Remeron 15mg TAB] 7.5 mg PO QHS #14 tablet 09/06/18 Unknown Rx Oxycodone HCl/Acetaminophen 1 each PO Q6HR PRN #12 tablet 09/06/18 Unknown Rx [Percocet 7.5/325 mg] Potassium Chloride [K-Dur] 20 meq PO BID #60 tab 09/06/18 Unknown Rx Rivaroxaban [Xarelto] 20 mg PO DAILY #30 tablet 09/06/18 Unknown Rx Tamsulosin [Flomax] 0.4 mg PO DAILY #30 capsule 09/06/18 Unknown Rx Rivaroxaban [Xarelto] 20 mg PO QDAY #7 tab 10/06/18 Unknown Rx Allergies Allergy/AdvReac Type Severity Reaction Status Date / Time shellfish derived Allergy Itching Verified 08/05/18 16:06 ED Review of Systems ROS: Stated complaint: BACK/ABD PAIN Other details as noted in HPI ED Past Medical Hx - Past Medical History Hx Hypertension: Yes Hx CVA: Yes (2011) Hx Heart Attack/AMI: Yes Hx Congestive Heart Failure: Yes Hx Deep Vein Thrombosis: Yes Hx Psychiatric Treatment: Yes (Bipolar) Additional medical history: Afib, - Surgical History Hx Coronary Stent: Yes (x2) Additional Surgical History: Cardiac stents, Stent in Rt. leg - Social History Smoking Status: Never Smoker Substance Use Type: None - Medications Home Medications: Home Medications Medication Instructions Recorded Confirmed Last Taken Type Furosemide [Lasix TAB] 40 mg PO BID #60 tablet 09/06/18 Unknown Rx Losartan [Cozaar] 25 mg PO DAILY #30 tablet 09/06/18 Unknown Rx Metoprolol [Lopressor TAB] 50 mg PO TID #90 tablet 09/06/18 Unknown Rx Mirtazapine [Remeron 15mg TAB] 7.5 mg PO QHS #14 tablet 09/06/18 Unknown Rx Oxycodone HCl/Acetaminophen 1 each PO Q6HR PRN #12 tablet 09/06/18 Unknown Rx [Percocet 7.5/325 mg] Potassium Chloride [K-Dur] 20 meq PO BID #60 tab 09/06/18 Unknown Rx Rivaroxaban [Xarelto] 20 mg PO DAILY #30 tablet 09/06/18 Unknown Rx Tamsulosin [Flomax] 0.4 mg PO DAILY #30 capsule 09/06/18 Unknown Rx Rivaroxaban [Xarelto] 20 mg PO QDAY #7 tab 10/06/18 Unknown Rx ED Physical Exam - General Limitations: No Limitations ED Course Vital Signs 11/19/18 11/19/18 11/19/18 13:31 14:29 14:36 Temperature 98.6 F 98.8 F Pulse Rate 59 L 120 H Respiratory 16 25 H Rate Blood Pressure 120/72 Blood Pressure 91/61 [Left] O2 Sat by Pulse 100 96 Oximetry ED Medical Decision Making - EKG Data -: EKG Interpreted by Me EKG shows normal: axis, intervals, QRS complexes, ST-T waves Rate: tachycardia (rate 104) - EKG Data Interpretation: LVH, other (atrial fibrillation) Critical care attestation.: If time is entered above; I have spent that time in minutes in the direct care of this critically ill patient, excluding procedure time. ED Disposition Clinical Impression: Low back pain Disposition: DC-01 TO HOME OR SELFCARE Is pt being admited?: No Condition: Stable Instructions: Low Back Strain (ED) Referrals: PRIMARY CAREMD [Primary Care Provider] - 3-5 Days BONNIE HOWELL MD [Staff Physician] - 3-5 Days Time of Disposition: 15:16
[2018-11-19 16:34] VITALS: BP 149/79
== END 2018-11-19 16:34 | disposition home or self-care (01) ==
LOC: ED 13:20
DX: M54.5 Low back pain (principal); R10.9 Unspecified abdominal pain; I11.0 Hypertensive heart disease with heart failure; I50.9 Heart failure, unspecified; I25.2 Old myocardial infarction; F31.9 Bipolar disorder, unspecified; Z86.73 Personal history of transient ischemic attack (TIA), and cerebral infarction without residual deficits; Z86.718 Personal history of other venous thrombosis and embolism; Z95.5 Presence of coronary angioplasty implant and graft; Z79.899 Other long term (current) drug therapy; Z91.013 Allergy to seafood
CPT/HCPCS: 93005; 93010

== ENCOUNTER 2018-11-25 23:42 | Emergency (ER) | payer MEDICARE ==
[2018-11-26] MEDS ORDERED: METOPROLOL TARTRATE 50 MG TAB PO ONE (01:47)
--- NOTE | 2018-11-26 01:54 | Emergency Department Report ---
<ALIX JOSÉ - Last Filed: 11/26/18 02:01> ED General Adult HPI - General Chief complaint: Extremity Injury, Lower Stated complaint: BILATERAL LEG EDEMA Source: patient Mode of arrival: Ambulatory Limitations: No Limitations - History of Present Illness Initial comments: 73yo male presents with leg pain and swelling. He states that he has experienced this for a week and he is out of his HTN meds. -: week(s) Location: lower extremity (bilateral) Severity scale (0 -10): 7 Quality: aching Consistency: constant Improves with: none, medication Worsens with: movement Associated Symptoms: denies other symptoms Treatments Prior to Arrival: none - Related Data Previous Rx's Medication Instructions Recorded Last Taken Type Furosemide [Lasix TAB] 40 mg PO BID #60 tablet 09/06/18 Unknown Rx Losartan [Cozaar] 25 mg PO DAILY #30 tablet 09/06/18 Unknown Rx Metoprolol [Lopressor TAB] 50 mg PO TID #90 tablet 09/06/18 Unknown Rx Mirtazapine [Remeron 15mg TAB] 7.5 mg PO QHS #14 tablet 09/06/18 Unknown Rx Oxycodone HCl/Acetaminophen 1 each PO Q6HR PRN #12 tablet 09/06/18 Unknown Rx [Percocet 7.5/325 mg] Potassium Chloride [K-Dur] 20 meq PO BID #60 tab 09/06/18 Unknown Rx Rivaroxaban [Xarelto] 20 mg PO DAILY #30 tablet 09/06/18 Unknown Rx Tamsulosin [Flomax] 0.4 mg PO DAILY #30 capsule 09/06/18 Unknown Rx Rivaroxaban [Xarelto] 20 mg PO QDAY #7 tab 10/06/18 Unknown Rx Furosemide [Lasix TAB] 40 mg PO BID #60 tablet 11/26/18 Unknown Rx Losartan [Cozaar] 25 mg PO QDAY 30 Days #30 tablet 11/26/18 Unknown Rx Metoprolol [Lopressor TAB] 50 mg PO TID 30 Days #90 tablet 11/26/18 Unknown Rx Allergies Allergy/AdvReac Type Severity Reaction Status Date / Time shellfish derived Allergy Itching Verified 08/05/18 16:06 ED Review of Systems Constitutional: no symptoms reported Eyes: as per HPI ENT: as per HPI Respiratory: no symptoms reported Cardiovascular: edema (bilateral lower leg) Endocrine: no symptoms reported Gastrointestinal: as per HPI Genitourinary: as per HPI Musculoskeletal: as per HPI Skin: as per HPI Neurological: as per HPI Psychiatric: as per HPI Hematological/Lymphatic: as per HPI ED Past Medical Hx - Past Medical History Previous Medical History?: Yes Hx Hypertension: Yes Hx CVA: Yes (2011) Hx Heart Attack/AMI: Yes Hx Congestive Heart Failure: Yes Hx Deep Vein Thrombosis: Yes Hx Psychiatric Treatment: Yes (Bipolar) Additional medical history: Afib, - Surgical History Past Surgical History?: Yes Hx Coronary Stent: Yes (x2) Additional Surgical History: Cardiac stents, Stent in Rt. leg - Social History Smoking Status: Never Smoker Substance Use Type: None - Medications Home Medications: Home Medications Medication Instructions Recorded Confirmed Last Taken Type Furosemide [Lasix TAB] 40 mg PO BID #60 tablet 09/06/18 Unknown Rx Losartan [Cozaar] 25 mg PO DAILY #30 tablet 09/06/18 Unknown Rx Metoprolol [Lopressor TAB] 50 mg PO TID #90 tablet 09/06/18 Unknown Rx Mirtazapine [Remeron 15mg TAB] 7.5 mg PO QHS #14 tablet 09/06/18 Unknown Rx Oxycodone HCl/Acetaminophen 1 each PO Q6HR PRN #12 tablet 09/06/18 Unknown Rx [Percocet 7.5/325 mg] Potassium Chloride [K-Dur] 20 meq PO BID #60 tab 09/06/18 Unknown Rx Rivaroxaban [Xarelto] 20 mg PO DAILY #30 tablet 09/06/18 Unknown Rx Tamsulosin [Flomax] 0.4 mg PO DAILY #30 capsule 09/06/18 Unknown Rx Rivaroxaban [Xarelto] 20 mg PO QDAY #7 tab 10/06/18 Unknown Rx Furosemide [Lasix TAB] 40 mg PO BID #60 tablet 11/26/18 Unknown Rx Losartan [Cozaar] 25 mg PO QDAY 30 Days #30 tablet 11/26/18 Unknown Rx Metoprolol [Lopressor TAB] 50 mg PO TID 30 Days #90 tablet 11/26/18 Unknown Rx ED Physical Exam - General Limitations: No Limitations General appearance: alert, in no apparent distress - Head Head exam: Present: atraumatic - Eye Eye exam: Present: normal appearance, PERRL, EOMI - ENT ENT exam: Present: normal exam, normal orophraynx - Neck Neck exam: Present: normal inspection, full ROM - Respiratory Respiratory exam: Present: normal lung sounds bilaterally, other (no SOB ). Absent: wheezes, rales, rhonchi - Cardiovascular Cardiovascular Exam: Present: normal rhythm, tachycardia - GI/Abdominal GI/Abdominal exam: Present: soft, distended, normal bowel sounds - Rectal Rectal exam: Present: deferred - Extremities Exam Extremities exam: Present: other (Bilateral lower leg edema) - Back Exam Back exam: Present: normal inspection - Neurological Exam Neurological exam: Present: alert, altered, oriented X3 - Psychiatric Psychiatric exam: Present: normal affect, normal mood - Skin Skin exam: Present: warm, dry ED Medical Decision Making - Medical Decision Making Atrial fibrillation due to not taking Metoprolol. Metoprolol given and a refill of current prescriptions given upon discharge. Pt was instructed to continue medication as prescribed, f/u with PCP and see ED as needed. ED Disposition Clinical Impression: Chronic atrial fibrillation, Atrial fibrillation with RVR, Medication refill Disposition: TO HOME OR SELFCARE Is pt being admited?: No Does the pt Need Aspirin: No Condition: Stable Instructions: Atrial Fibrillation (ED) Additional Instructions: Atrial fibrillation due to not taking Metoprolol. Metoprolol given and a refill of current prescriptions given upon discharge. Pt was instructed to continue medication as prescribed, f/u with PCP and see ED as needed. Prescriptions: Losartan [Cozaar] 25 mg PO QDAY 30 Days #30 tablet Furosemide [Lasix TAB] 40 mg PO BID #60 tablet Metoprolol [Lopressor TAB] 50 mg PO TID 30 Days #90 tablet Referrals: PRIMARY CARE, [Primary Care Provider] - 3-5 Days <FELIPE HUBBARD - Last Filed: 11/27/18 20:48> ED General Adult HPI - History of Present Illness Associated Symptoms: denies: chest pain, shortness of breath ED Review of Systems ROS: Stated complaint: BILATERAL LEG EDEMA Other details as noted in HPI Comment: All other systems reviewed and negative Constitutional: denies: fever Respiratory: denies: shortness of breath Cardiovascular: denies: chest pain ED Physical Exam - Cardiovascular Cardiovascular Exam: Present: irregular rhythm. Absent: normal rhythm - Extremities Exam Extremities exam: Present: other ED Course Vital Signs 11/26/18 11/26/18 11/26/18 00:01 00:48 00:49 Temperature 98.0 F Pulse Rate 125 H 121 H Respiratory 16 12 12 Rate Blood Pressure 136/86 Blood Pressure 137/82 [Left] O2 Sat by Pulse 98 100 100 Oximetry 11/26/18 11/26/18 11/26/18 01:00 01:55 02:15 Temperature Pulse Rate 126 H 127 H 110 H Respiratory 22 20 Rate Blood Pressure 121/87 139/98 142/93 Blood Pressure [Left] O2 Sat by Pulse 98 100 Oximetry 11/26/18 11/26/18 11/26/18 03:15 03:28 03:44 Temperature Pulse Rate 112 H 104 H 96 H Respiratory 23 18 Rate Blood Pressure 132/77 131/83 Blood Pressure 131/74 [Left] O2 Sat by Pulse 100 100 Oximetry ED Medical Decision Making - Medical Decision Making Pt has history of chronic Afib. Tachycardic initially due to being out of his metoprolol. Metoprolol given here in ED. Vitals otherwise normal. Pt denies c hest pain or SOB. O2 sats normal. No rales on exam. Refills given. Outpt f/u advised. - Differential Diagnosis med refill, edema, Afib w/ RVR Critical care attestation.: If time is entered above; I have spent that time in minutes in the direct care of this critically ill patient, excluding procedure time. ED Disposition Is pt being admited?: No
[2018-11-26] MEDS ORDERED: METOPROLOL TARTRATE 5 MG/5 ML INJ IV ONE ×2 (03:25→03:27)
[2018-11-26 03:50] VITALS: BP 131/74
== END 2018-11-26 04:00 | disposition home or self-care (01) ==
LOC: ED 23:42
DX: M79.604 Pain in right leg (principal); M79.605 Pain in left leg; R22.43 Localized swelling, mass and lump, lower limb, bilateral; I48.91 Unspecified atrial fibrillation; I48.20 Chronic atrial fibrillation, unspecified; I11.0 Hypertensive heart disease with heart failure; I50.9 Heart failure, unspecified; F31.9 Bipolar disorder, unspecified; Z76.0 Encounter for issue of repeat prescription; Z86.718 Personal history of other venous thrombosis and embolism; Z95.5 Presence of coronary angioplasty implant and graft; Z91.013 Allergy to seafood; Z79.899 Other long term (current) drug therapy
CPT/HCPCS: 96374

== ENCOUNTER 2018-12-23 12:49 | Emergency (ER) | payer MEDICARE ==
--- NOTE | 2018-12-23 14:58 | Emergency Department Report ---
ED CPR HPI - General Chief Complaint: Cardiac Arrest/CPR Stated Complaint: CARDIAC ARREST Time Seen by Provider: 12/23/18 14:53 Source: EMS Mode of arrival: Stretcher Limitations: Other - History of Present Illness Initial Comments: 33-year-old man who is well-known to this emergency department. Indeed, I saw him yesterday and had him admitted I presume to the ICU for atrial fibrillation rapid ventricular response which was difficult to control. I am unaware of his hospital course. However, I'm told he signed out AMA. In fact, he may not have been out of the hospital for more than a few hours before he experienced a cardiac arrest. Paramedics tell me that he was found on [address] with agonal respirations. They provided standard ACLS protocol to include endotracheal intubation and an IO catheter. He was given multiple rounds of usual medication. He had no return of spontaneous circulation. Since stated efforts were prolonged prior to arrival probably at least 15 minutes. They also gave Narcan as his pupils were small. There was no apparent response. MD Complaint: other (found with agonal respirations) -: minute(s) Place: street Number of Shocks Delivered: 1 (V. fib and shocked 1. PEA otherwise) Initial Findings in the Field: unresponsive, PEA ROSC in the Field: No Associated Injuries: No Treatments Prior to Arrival: intubation, other (I/O catheter) - Related Data Previous Rx's Medication Instructions Recorded Last Taken Type Furosemide [Lasix TAB] 40 mg PO BID #60 tablet 09/06/18 Unknown Rx Mirtazapine [Remeron 15mg TAB] 7.5 mg PO QHS #14 tablet 09/06/18 Unknown Rx Potassium Chloride [K-Dur] 20 meq PO BID #60 tab 09/06/18 Unknown Rx Tamsulosin [Flomax] 0.4 mg PO DAILY #30 capsule 09/06/18 Unknown Rx Losartan [Cozaar] 25 mg PO DAILY #30 tablet 12/23/18 Unknown Rx Metoprolol [Lopressor TAB] 50 mg PO TID #90 tablet 12/23/18 Unknown Rx Rivaroxaban [Xarelto] 20 mg PO DAILY #30 tablet 12/23/18 Unknown Rx Allergies Allergy/AdvReac Type Severity Reaction Status Date / Time shellfish derived Allergy Itching Verified 08/05/18 16:06 ED Review of Systems ROS: Stated complaint: CARDIAC ARREST Other details as noted in HPI Comment: Unobtainable due to pts medical conditions ED Past Medical Hx - Past Medical History Previous Medical History?: Yes Hx Hypertension: Yes Hx CVA: Yes (2011) Hx Heart Attack/AMI: Yes Hx Congestive Heart Failure: Yes Hx Deep Vein Thrombosis: Yes Hx Psychiatric Treatment: Yes (Bipolar) Hx HIV: No Additional medical history: Afib, - Surgical History Past Surgical History?: Yes Hx Coronary Stent: Yes (x2) Additional Surgical History: Cardiac stents, Stent in Rt. leg - Social History Smoking Status: Never Smoker - Medications Home Medications: Home Medications Medication Instructions Recorded Confirmed Last Taken Type Furosemide [Lasix TAB] 40 mg PO BID #60 tablet 09/06/18 12/23/18 Unknown Rx Mirtazapine [Remeron 15mg TAB] 7.5 mg PO QHS #14 tablet 09/06/18 12/23/18 Unknown Rx Potassium Chloride [K-Dur] 20 meq PO BID #60 tab 09/06/18 12/23/18 Unknown Rx Tamsulosin [Flomax] 0.4 mg PO DAILY #30 capsule 09/06/18 12/23/18 Unknown Rx Losartan [Cozaar] 25 mg PO DAILY #30 tablet 12/23/18 Unknown Rx Metoprolol [Lopressor TAB] 50 mg PO TID #90 tablet 12/23/18 Unknown Rx Rivaroxaban [Xarelto] 20 mg PO DAILY #30 tablet 12/23/18 Unknown Rx ED Physical Exam - General Limitations: Other (no signs of life) - Head Head exam: Present: atraumatic (not apparent) - Eye Eye exam: Present: other (disposition nonreactive) - ENT ENT exam: Present: other (normal inspection) - Neck Neck exam: Present: normal inspection - Respiratory Respiratory exam: Present: normal lung sounds bilaterally (with Ambu bag assist) - Cardiovascular Cardiovascular Exam: Present: other (no heart sounds) - GI/Abdominal GI/Abdominal exam: Present: soft. Absent: distended - Extremities Exam Extremities exam: Present: other (I/O catheter right tibial) - Neurological Exam Neurological exam: Present: other (GCS 3, no respiratory effort) ED Course - Reevaluation(s) Reevaluation #1: Patient was given epinephrine, bicarbonate additional epinephrine. Doppler examination was negative. It was noted that the patient had a very brief return of cardiac activity. It was nonsustained. He did not respond to additional epinephrine. Having gone past more than 20 minutes of resuscitation further efforts were deemed futile. The patient was pronounced at 1302. 12/23/18 14:58 Critical care attestation.: If time is entered above; I have spent that time in minutes in the direct care of this critically ill patient, excluding procedure time. ED Disposition Clinical Impression: Cardiac arrest Disposition: DC-20 Is pt being admited?: No Does the pt Need Aspirin: No Condition: Stable Referrals: SAAD MAK MD [Primary Care Provider] - 3-5 Days Time of Disposition: 14:59
== END 2018-12-23 15:50 ==
LOC: ED 12:49
DX: I46.9 Cardiac arrest, cause unspecified (principal); I50.9 Heart failure, unspecified; I25.2 Old myocardial infarction; I11.0 Hypertensive heart disease with heart failure; F31.9 Bipolar disorder, unspecified; I48.91 Unspecified atrial fibrillation
CPT/HCPCS: 92950